=== PATIENT | female | born 1950 | race Caucasian/White ===

== ENCOUNTER → 2018-09-07 08:37 | Outpatient (CLI) | payer SELFPAY | PROVIDERS: Visit Provider Family Medicine | DX: Z00.00 Encounter for general adult medical examination without abnormal findings (principal) | CPT/HCPCS: 36415 ==

== ENCOUNTER 2019-02-10 16:15 | Emergency (ER) | payer MEDICARE, SELFPAY ==
[2019-02-10 16:15] VITALS: BP 188/85; PULSE 108; RESP 16; TEMP 36.4; O2SAT 95; BMI 34.2
[2019-02-10] MEDS: Diphth,Pertuss(Acell),Tet Vac 0.5 ML Vial IM (17:15)
--- NOTE | 2019-02-10 18:46 | ED.VISSUMM ---
- ER Visit Summary Date of Service: 02/10/19 Chief Complaint: Left thumb pain and swelling History of Present Illness: The patient is a 68 F who presents with pain and swelling over her left thumb that has been getting worse over the past 2 weeks. Patient states she has been on a course of antibiotics which did not help. Patient states she saw her primary care physician who started her on a second course of antibiotics. Patient states the pain and swelling has been getting worse. Patient states the pain is worse with palpation. Patient denies any paresthesias or weakness. Patient denies any fevers or chills. Physical Examination: Vital signs are stable. Patient is afebrile. Patient is in no acute distress. Musculoskeletal exam reveals tenderness, edema, and erythema along the nail margins of the left thumb. There is no tenderness over the pad of the left thumb. There is good capillary refill in all digits. Sensation is intact to light touch in all digits. There is no active drainage noted. There is no erythematous streaking up the thumb. The remaining physical exam is within normal limits. Emergency Department Course and Treatment: The left thumb was anesthetized with 1% lidocaine via digital block. An 11 blade scalpel was used to make incisions along the nail margins of the left thumb. There is also an incision made at the tip of the left thumb. There is some moderate purulent drainage expressed. Patient felt better after procedure. Patient was instructed to follow-up with her primary care physician in 5-7 days. Patient was given a prescription for an additional 5 days of Augmentin. Patient was instructed to return if worse in any way. Patient understood and was agreeable with the plan. All questions were answered. Disposition: Discharge home Impression: Paronychia left thumb This note was generated with [employer] dictation software. It may contain incorrect words, spelling, and punctuation that were not noted in review of the chart prior to signing ED Disposition - Plan for ED Patient: Disposition: Home or Assisted Living Diagnosis: Paronychia of left thumb Instructions: ED Paronychia Ch Prescriptions: Amoxicillin/Potassium Clav [Augmentin 875-125 Tablet] 1 ea PO BID 5 Days #10 tab Referrals: Cherie Deluca MD [Primary Care Provider] -
[2019-02-10 19:06] VITALS: BP 160/74; PULSE 88; RESP 18; O2SAT 95
== END 2019-02-10 19:06 | disposition home or self-care (01) ==
PROVIDERS: Emergency Provider Emergency Medicine; Family Provider Family Medicine; PCP Family Medicine
DX: L03.012 Cellulitis of left finger (principal); E11.9 Type 2 diabetes mellitus without complications; Z72.0 Tobacco use; Z79.2 Long term (current) use of antibiotics; Z79.4 Long term (current) use of insulin; Z79.899 Other long term (current) drug therapy
CPT/HCPCS: 10060; 90471; 90715; 99283

== ENCOUNTER → 2019-03-08 | Outpatient (CLI) | payer MEDICARE, SELFPAY ==
[2019-02-10 16:15] VITALS: BMI 34.2
[2019-03-08 12:52] LABS: Anion Gap 12 (5-15); BUN 9 mg/dL (7-18); BUN/Creat Ratio 12.4 RATIO (10-20); Calcium,Total 9.3 mg/dL (8.5-10.1); Chloride 102 mmol/L (98-107); Creatinine, Serum 0.72 mg/dL (0.55-1.02); EST Glomerular Filtration Rate 85 mL/min (>60); Est Glom Filt Rate - Afr Amer 102 mL/min (>60); Glucose 278 mg/dL (74-106); Potassium 4.4 mmol/L (3.5-5.1); Sodium Level 138 mmol/L (136-145)
[2019-03-08 13:44] LABS: Vitamin D,25 Hydroxy 28.1 ng/mL (29.95-100.01)
== END | disposition home or self-care (01) ==
LOC: MFPLAB 10:41
PROVIDERS: Family Provider Family Medicine; PCP Family Medicine; Referring Provider Family Medicine; Visit Provider Family Medicine
DX: E55.9 Vitamin D deficiency, unspecified (principal); I10 Essential (primary) hypertension
CPT/HCPCS: 36415; 80048; 82306

== ENCOUNTER → 2019-03-17 | Outpatient (CLI) | payer MEDICARE, SELFPAY ==
[2019-03-17 08:31] VITALS: BMI 34.2
--- NOTE | 2019-03-17 08:37 | RAD_ITS ---
STUDY: X-RAY - LEFT HAND, ATTENTION THUMB REASON FOR EXAM: Pain. TECHNIQUE: 3 view(s) of the finger were obtained. COMPARISON: None. FINDINGS: Normal metacarpal. Normal metacarpophalangeal joint. Normal proximal phalanx. Normal distal phalanx. There is capsular calcification at the dorsal aspect of the interphalangeal joint. RAD/Finger(s) Min 2 Views IMPRESSION: Capsular calcification of the interphalangeal joint. Otherwise, unremarkable x-ray examination of the left thumb. Electronically Signed: Graham Sharif MD at 9:44 EDT Tel , Service support ,
--- NOTE | 2019-03-17 08:37 | RAD_ITS ---
STUDY: X-RAY - RIGHT HAND, ATTENTION THUMB REASON FOR EXAM: Pain. TECHNIQUE: 3 view(s) of the finger were obtained. COMPARISON: None. FINDINGS: Normal metacarpal. Normal metacarpophalangeal joint. Normal proximal phalanx. Normal distal phalanx. There is a small osteophyte at the base of the first distal phalanx without joint space narrowing of the interphalangeal joint. RAD/Finger(s) Min 2 Views IMPRESSION: Small osteophyte at the base of the distal phalanx. Otherwise, unremarkable x-ray examination of the right thumb. Electronically Signed: Graham Sharif MD at 9:45 EDT Tel , Service support ,
== END | disposition home or self-care (01) ==
PROVIDERS: Family Provider Family Medicine; PCP Family Medicine; Referring Provider Orthopaedic Surgery; Visit Provider Orthopaedic Surgery
DX: M79.645 Pain in left finger(s) (principal); M79.644 Pain in right finger(s)
CPT/HCPCS: 73140

== ENCOUNTER → 2019-10-31 10:54 | Outpatient (CLI) | payer MEDICARE, SELFPAY ==
[2019-03-17 08:31] VITALS: BMI 34.2
[2019-10-31 13:04] LABS: Anion Gap 5 (5-15); BUN 10 mg/dL (7-18); BUN/Creat Ratio 13.7 RATIO (10-20); Calcium,Total 9.4 mg/dL (8.5-10.1); Chloride 107 mmol/L (98-107); Creatinine, Serum 0.73 mg/dL (0.55-1.02); EST Glomerular Filtration Rate 84 mL/min (>60); Est Glom Filt Rate - Afr Amer 101 mL/min (>60); Glucose 171 mg/dL (74-106); Potassium 4.2 mmol/L (3.5-5.1); Sodium Level 139 mmol/L (136-145)
== END ==
PROVIDERS: Family Provider Family Medicine; PCP Family Medicine; Referring Provider Family Medicine; Visit Provider Family Medicine
DX: E11.9 Type 2 diabetes mellitus without complications (principal)
CPT/HCPCS: 36415; 80048

== ENCOUNTER → 2020-05-01 | Outpatient (CLI) | payer MEDICARE, SELFPAY ==
[2020-01-18 10:02] VITALS: BMI 34.2
[2020-05-01 13:03] LABS: AST(SGOT) 28 U/L (15-37); Alanine Aminotransfer ALT/SGPT 30 U/L (13-56); Albumin, Serum 3.4 g/dL (3.2-5.0); Alkaline Phosphatase 39 U/L (45-117); Anion Gap 7 (5-15); BUN 16 mg/dL (7-18); BUN/Creat Ratio 20.6 RATIO (10-20); Bilirubin, Direct 0.15 mg/dL (0.00-0.30); Calcium,Total 9.7 mg/dL (8.5-10.1); Chloride 106 mmol/L (98-107); Cholesterol 171 mg/dL (200); Creatinine, Serum 0.78 mg/dL (0.55-1.02); EST Glomerular Filtration Rate 78 mL/min (>60); Est Glom Filt Rate - Afr Amer 94 mL/min (>60); Globulin 3.9 g/dL (2.2-4.2); Glucose 119 mg/dL (74-106); High Density Lipoprotein 33 mg/dL; Potassium 4.3 mmol/L (3.5-5.1); Protein, Total 7.3 g/dL (6.4-8.2); Sodium Level 141 mmol/L (136-145); Triglycerides 234 mg/dL; Very Low Density Lipoprotein 47 mg/dL (5-40)
[2020-05-01 13:10] LABS: Hemoglobin A1c 8.1 % (3.8-5.6)
== END | disposition home or self-care (01) ==
LOC: MFPLAB 10:31
PROVIDERS: PCP Family Medicine; Visit Provider Family Medicine
DX: E11.9 Type 2 diabetes mellitus without complications (principal)
CPT/HCPCS: 36415; 80048; 80061; 80076; 83036

== ENCOUNTER → 2020-10-30 16:07 | Outpatient (CLI) | payer MEDICARE, SELFPAY ==
[2020-01-18 10:02] VITALS: BMI 34.2
[2020-10-30 18:37] LABS: Anion Gap 3 (5-15); BUN 21 mg/dL (7-18); BUN/Creat Ratio 29.4 RATIO (10-20); Calcium,Total 9.5 mg/dL (8.5-10.1); Chloride 105 mmol/L (98-107); Creatinine, Serum 0.71 mg/dL (0.55-1.02); EST Glomerular Filtration Rate 86 mL/min (>60); Est Glom Filt Rate - Afr Amer 104 mL/min (>60); Glucose 115 mg/dL (74-106); Potassium 4.3 mmol/L (3.5-5.1); Sodium Level 138 mmol/L (136-145)
[2020-10-30 19:02] LABS: Microalbumin,Random Urine 6.7 mg/L (NO RANGE EST.); Microalbumin:Creatinine Ratio 11.6 mg/g CRE (<30 mg/g CRE)
== END ==
PROVIDERS: PCP Family Medicine; Visit Provider Family Medicine
DX: E11.9 Type 2 diabetes mellitus without complications (principal)
CPT/HCPCS: 36415; 80048; 82043; 82570

== ENCOUNTER → 2021-01-30 | Outpatient (CLI) | payer MEDICARE, SELFPAY ==
[2020-01-18 10:02] VITALS: BMI 34.2
== END | disposition home or self-care (01) ==
PROVIDERS: Visit Provider Family Medicine
DX: L73.2 Hidradenitis suppurativa (principal)
CPT/HCPCS: 87070; 87205

== ENCOUNTER 2021-04-03 22:39 | Inpatient (IN) | payer MEDICARE, SELFPAY ==
[2020-01-18 10:02] VITALS: BMI 34.2
[2021-04-03 22:40] VITALS: BP 148/80; PULSE 119; RESP 36; TEMP 29.4; O2SAT 91; BMI 37.2
[2021-04-03 22:45] VITALS: PULSE 118; PULSE 119; RESP 12; RESP 28; RESP 36; O2SAT 95
--- NOTE | 2021-04-03 22:47 | EKG12_ITS ---
Test Reason : SOB Blood Pressure : / mmHG Vent. Rate : 117 BPM Atrial Rate : 117 BPM P-R Int : 166 ms QRS Dur : 090 ms QT Int : 308 ms P-R-T Axes : 019 -35 073 degrees QTc Int : 429 ms Sinus tachycardia Left axis deviation Septal infarct , age undetermined Abnormal ECG Confirmed by LOTTIE GANDHI, LATOYA ([id number]), supervising film or videotape editor FLACO TIDWELL ([id number]) on 04/07/2021 12:45:24 PM Referred By: HERMANN Confirmed By:LATOYA TAFOYA MD
--- NOTE | 2021-04-03 22:50 | EDS_ITS ---
HPI History of Present Illness Chief Complaint: Shortness of Breath Informant: patient, family and EMS Onset/Context/Timing Onset: Today Context: Sudden Onset Current Severity: Severe Maximum Severity: Severe Narrative Narrative: This patient is a 70-year-old female who presents with sudden onset difficulty breathing. She has been in her baseline health. She was actually at [facility], [place]. About 1-1/2 hours before presentation here she became acutely severely short of breath. She denies any pain. She denies any recent illness. She worked today. She denies fever congestion rhinorrhea cough vomiting diarrhea abdominal pain. She denies history of underlying lung disease such as asthma or COPD. She does have a remote history of ovarian cancer. 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 Prior similar symptoms: No Recent Illness/Hospitalization: No [facility] Medical History (Updated 04/04/21 @ 02:[address] Joce Grijalva MD) Arthritis Diabetes History of back problems History of ovarian cancer historyventral hernia repair Scalp cyst Sebaceous cyst Home Medications carvedilol 6.25 mg PO BID 02/10/19 [History Last Taken Unknown] glimepiride 4 mg PO DAILY 02/10/19 [History Last Taken Unknown] insulin aspart U-100 20 unit SQ BID 02/10/19 [History Last Taken Unknown] insulin glargine 50 unit SQ DAILY 02/10/19 [History Last Taken Unknown] magnesium 400 mg PO DAILY 02/10/19 [History Last Taken Unknown] metformin 1,000 mg PO DAILY 02/10/19 [History Last Taken Unknown] quinapril 10 mg PO DAILY 02/10/19 [History Last Taken Unknown] cholecalciferol (vitamin D3) 10 mcg (400 unit) tablet 400 unit PO DAILY 01/18/20 [History Last Taken Unknown] multivitamin 1 cap PO DAILY 01/18/20 [History Last Taken Unknown] Allergy/AdvReac Type Severity Reaction Status Date / Time acetaminophen [From Percocet] AdvReac Vomiting Verified 04/03/21 22:52 cefuroxime AdvReac Other Verified 04/03/21 22:52 oxycodone [From Percocet] AdvReac Vomiting Verified 04/03/21 22:52 tetracycline AdvReac Itching Verified 04/03/21 22:52 Family History (Updated 01/18/20 @ 09:58 by Erica Loja) Mother Arthritis Cancer lung cancer Osteoporosis Brother Diabetes Surgical History History of back surgery History of bilateral salpingo-oophorectomy History of ventral hernia repair Social History (Updated 01/18/20 @ 10:[address] Elijah Eden MD) Smoking Status: Light Smoker (<10/day) alcohol intake: never substance use type: does not use ROS ROS ED Constitutional Constitutional ED: Denies chills or fever(s) ENT ENT ED: Denies ear pain Cardiovascular Cardiovascular: Denies chest pain Respiratory/Chest Respiratory/Chest: Reports dyspnea; Denies cough or sputum Gastrointestinal Gastrointestinal: Denies abdominal pain, diarrhea, nausea or vomiting Musculoskeletal Musculoskeletal: Denies arthralgias or myalgias Integumentary Denies rash Neurologic Neurologic: Denies headache(s) EXAM Physical Exam Const Vital Signs: 04/03/21 22:40 04/03/21 22:45 04/03/21 22:51 Temperature 85 F L Temperature Source Temporal Pulse Rate 119 H 119 H Respiratory Rate 36 H 36 H Respiratory Effort Short of Breath Labored Accessory Muscle Use Nasal Flaring Mechanically Ventilated Respiratory Depth Deep Respiratory Pattern Tachypnea Blood Pressure 148/80 H Blood Pressure Mean 102 Pulse Ox 91 95 Oxygen Delivery Method CPAP Bi-pap Oxygen Flow Rate (L/min) Fraction of Inspired Oxygen (FIO2) 45 04/03/21 22:53 04/03/21 23:22 04/04/21 00:02 Temperature Temperature Source Pulse Rate 117 H 119 H Respiratory Rate 38 H 30 H Respiratory Effort Respiratory Depth Respiratory Pattern Blood Pressure 150/93 H Blood Pressure Mean 112 Pulse Ox 96 97 95 Oxygen Delivery Method Bi-pap Bi-pap Nasal Cannula Oxygen Flow Rate (L/min) 5 Fraction of Inspired Oxygen (FIO2) 04/04/21 00:19 04/04/21 01:59 Temperature Temperature Source Pulse Rate 122 H 103 H Respiratory Rate 21 H 18 Respiratory Effort Respiratory Depth Respiratory Pattern Blood Pressure 138/83 H 98/50 L Blood Pressure Mean 101 66 Pulse Ox 93 96 Oxygen Delivery Method Room Air Oxygen Flow Rate (L/min) 6 5 Fraction of Inspired Oxygen (FIO2) Positive obese Constitutional Narrative: Patient in respiratory distress, pale, diaphoretic, only able to nod to questions General Appearance ED: other Nutritional Appearance: obese HEENT Reports moist mucous membranes Eyes EOMs intact bilaterally Neck supple Chest Wall inspection of chest normal Resp Resp Narrative: Respiratory distress, increased work of breathing, bilateral rales, retractions, unable to speak nodding to questions Cardio regular rhythm Rate: tachycardic and other Other Details: No murmur GI non-tender Palpation: soft Back/Spine no CVA tenderness Extremity Extremity Narrative: Symmetric pitting lower extremity edema General Extremety ED: Yes edema; Negative for tenderness General Extremity: edema Neuro Sensorium / Orientation: alert Psych mental status grossly normal MDM MDM MDM Narrative Medical decision making narrative: Patient presented in respiratory distress. She was placed on BiPAP and oxygen saturations improved to normal range on BiPAP with 45% FiO2. Initial EKG was somewhat limited due to artifact but showed sinus tachycardia with questionable ST elevation in the precordial leads as well as some ST depression in the inferior leads although this may be rate related. I did speak to Dr. Amezquita who is on-call for cardiology who also reviewed the EKG and we discussed the case. He did not feel that this met STEMI criteria but patient was noted to have hypoxia and bilateral rales so I recommended diuresis and waiting on cardiac enzymes. Repeat EKG was also obtained which shows sinus tachycardia at a rate of [address] still with some mild ST elevation in the precordial leads as well as Q waves we do not think that this meets STEMI criteria based on the appearance. I did send the second EKG to cardiology as well. Patient was given IV Lasix. She was also given aspirin. After discussion again with cardiology after return of laboratory studies we also gave subcutaneous Lovenox for possible acute coronary syndrome. Labs are notable for creatinine of 1.17, lactic acid of 5.3, troponin is 0.459. BNP is 413. Chest x-ray showed bilateral hazy airspace disease suspicious for pneumonia including atypical or viral pneumonia. However patient has no infectious symptoms and this was of sudden onset. Covid testing was negative. I believe this is more likely pulmonary edema. CTA was also obtained to rule out pulmonary embolism. This showed no evidence of PE but abnormal appearance of bilateral lungs possibly consistent with pulmonary edema. Patient will be discussed with the hospitalist service and admitted. Lab Data Labs: Laboratory Results - last 24 hr 04/03/21 04/03/21 04/03/21 23:03 23:03 23:03 WBC 10.8 RBC 4.69 Hgb 12.9 Hct 41.9 MCV 89.3 MCH 27.5 MCHC 30.8 L RDW Std Deviation 47.0 H RDW Coeff of Ludwig 14.5 Plt Count 223 MPV 13.0 H Immature Gran % (Auto) 2.600 H Neut % (Auto) 55.1 Lymph % (Auto) 31.4 Heard % (Auto) 5.1 Eos % (Auto) 4.5 Baso % (Auto) 1.3 H Absolute Neuts (auto) 6.0 Absolute Lymphs (auto) 3.40 Nucleated RBC % 0 Sodium 137 Potassium 4.7 Chloride 103 Carbon Dioxide 24.0 Anion Gap 10 BUN 22 H Creatinine 1.17 H Estim Creat Clear Calc 39.68 Est GFR (MDRD) Af Amer 59 L Est GFR (MDRD) Non-Af 48 L BUN/Creatinine Ratio 18.8 Glucose 254 H Lactic Acid 5.3 H* Calcium 9.5 Total Bilirubin 0.80 AST 26 ALT 28 Alkaline Phosphatase 45 Troponin I 0.459 H B-Natriuretic Peptide Total Protein 7.4 Albumin 3.6 Globulin 3.8 Albumin/Globulin Ratio 0.9 04/03/21 23:03 WBC RBC Hgb Hct MCV MCH MCHC RDW Std Deviation RDW Coeff of Ludwig Plt Count MPV Immature Gran % (Auto) Neut % (Auto) Lymph % (Auto) Heard % (Auto) Eos % (Auto) Baso % (Auto) Absolute Neuts (auto) Absolute Lymphs (auto) Nucleated RBC % Sodium Potassium Chloride Carbon Dioxide Anion Gap BUN Creatinine Estim Creat Clear Calc Est GFR (MDRD) Af Amer Est GFR (MDRD) Non-Af BUN/Creatinine Ratio Glucose Lactic Acid Calcium Total Bilirubin AST ALT Alkaline Phosphatase Troponin I B-Natriuretic Peptide 413.5 H Total Protein Albumin Globulin Albumin/Globulin Ratio ABG Data ABG results: ABG 04/03/21 23:46 Specimen Type ART Sample Site R Radial pH 7.34 L Bicarbonate Actual 23.6 Total CO2 25 Base Excess -2 O2 Saturation 94 L O2 % 45 ABG pCO2 44.0 ABG pO2 77 Oz Test Positive Respiration Rate 12 O2 Delivery Device BiPAP POC PEEP 9 Radiography Diagnostic Testing: Radiology Impression Chest X-Ray 04/03/21 23:12 IMPRESSION: Bilateral hazy airspace disease suspicious for pneumonia including atypical or viral pneumonia. at 2332 Reported and signed by: Cam Hdz MD Electronically Signed: Cam Hdz MD at 23:30 EDT Tel , Service support , Chest CTA 04/04/21 00:00 IMPRESSION: No evidence of pulmonary embolism. Abnormal appearance of the bilateral lungs with differential diagnosis as above. Electronically Signed: Nigel Santoro MD at 2:11 EDT Tel , Service support , Critical Care Time Critical Care Time: Yes Critical care time (excluding procedures): 30-74 minutes, Discussing w/Patient &/or Family/Underwriting Account Representative, Discussing w/Consultants and Performing Direct Patient Care at Bedside Discharge Plan Triage Chief Complaint: Shortness of Breath ED Provider: Joce Grijalva Dx/Rx/DC Orders Clinical Impression: Acute hypoxemic respiratory failure, CHF (congestive heart failure), Elevated troponin Prescriptions: No Action multivitamin capsule 1 cap PO DAILY RF: 0 cholecalciferol (vitamin D3) [Vitamin D3] 10 mcg (400 unit) tablet 400 unit PO DAILY RF: 0 carvedilol 6.25 MG tablet 6.25 mg PO BID RF: 0 insulin glargine 100 UNIT/ML solution 50 unit SQ DAILY RF: 0 quinapril 10 MG tablet 10 mg PO DAILY RF: 0 insulin aspart U-100 100 UNIT/ML solution 20 unit SQ BID RF: 0 metformin 1,000 MG tablet 1,000 mg PO DAILY RF: 0 glimepiride 4 MG tablet 4 mg PO DAILY RF: 0 magnesium 200 MG tablet 400 mg PO DAILY RF: 0 Primary Care Provider: Cherie Deluca Referrals: Cherie Deluca MD [Primary Care Provider] - Disposition Disposition: Acute Care [facility]
[2021-04-03 22:51] VITALS: O2SAT 96
[2021-04-03 22:53] VITALS: PULSE 117; RESP 38; O2SAT 96
[2021-04-03] MEDS: Ipratropium/Albuterol Sulfate 3 ML AMPUL.NEB INHALATION (22:55)
[2021-04-03] MEDS: Albuterol 2.5 MG/3 ML VIAL.NEB. INHALATION (22:56)
--- NOTE | 2021-04-03 23:12 | RAD_ITS ---
HISTORY: Respiratory distress EXAMINATION/TECHNIQUE: XR Chest 1 View: Portable upright AP chest x-ray COMPARISON: None FINDINGS: LINES/DEVICES: None. LUNGS: Hazy bilateral airspace disease with basilar prominence, no consolidation, edema or effusion. No pneumothorax. MEDIASTINUM AND CARDIOVASCULAR STRUCTURES: Cardiac silhouette not enlarged. Central airways and mediastinal contour are unremarkable. BONES AND SOFT TISSUES: No acute bony abnormalities. RAD/Chest 1 View (Portable) IMPRESSION: Bilateral hazy airspace disease suspicious for pneumonia including atypical or viral pneumonia. at 2332 Reported and signed by: Cam Hdz MD Electronically Signed: Cam Hdz MD at 23:30 EDT Tel , Service support ,
--- NOTE | 2021-04-03 23:17 | EKG12_ITS ---
Test Reason : SOB Blood Pressure : / mmHG Vent. Rate : 116 BPM Atrial Rate : 116 BPM P-R Int : 180 ms QRS Dur : 090 ms QT Int : 330 ms P-R-T Axes : -06 -28 073 degrees QTc Int : 458 ms Sinus tachycardia Anteroseptal infarct , age undetermined Abnormal ECG Confirmed by LOTTIE GANDHI, LATOYA ([id number]), avid editor FLACO TIDWELL ([id number]) on 04/07/2021 12:45:45 PM Referred By: HERMANN Confirmed By:LATOYA TAFOYA MD
[2021-04-03 23:22] VITALS: BP 150/93; PULSE 119; RESP 30; O2SAT 97
[2021-04-03 23:34] LABS: Basophil# 0.14 X10^3/uL; Basophil% 1.3 % (0-1); Eosinophil# 0.49 X10^3/uL; Eosinophils% 4.5 % (0-5); Hematocrit 41.9 % (37-47); Hemoglobin 12.9 g/dL (12.0-15.0); Lymphocyte % 31.4 % (19-41); Mean Corp Hgb Conc 30.8 g/dL (32-36); Mean Corpuscular Hgb 27.5 pg (27.0-32.0); Mean Corpuscular Volume 89.3 fL (81-99); Monocyte# 0.55 X10^3/uL; Monocyte% 5.1 % (0-10); NRBC Flagged by Analyzer 0 % (0-5); Neutrophil # 5.98 X10^3/uL (2.7-7.7); Neutrophil % 55.1 % (47-70); Platelet Count 223 K/mm3 (150-450); RBC Distribution Width CV 14.5 % (11.6-14.6); Red Blood Count 4.69 M/mm3 (4.2-5.4); White Blood Count 10.8 K/mm3 (4.4-11.0)
[2021-04-03] MEDS: Furosemide 40 MG/4 ML Vial IV (23:34)
[2021-04-03 23:36] LABS: ALB/GLOB Ratio 0.9 RATIO (0.9-2.4); AST(SGOT) 26 U/L (15-37); Alanine Aminotransfer ALT/SGPT 28 U/L (13-56); Albumin, Serum 3.6 g/dL (3.2-5.0); Alkaline Phosphatase 45 U/L (45-117); Anion Gap 10 (5-15); BUN 22 mg/dL (7-18); BUN/Creat Ratio 18.8 RATIO (10-20); Calcium,Total 9.5 mg/dL (8.5-10.1); Chloride 103 mmol/L (98-107); Creatinine, Serum 1.17 mg/dL (0.55-1.02); EST Glomerular Filtration Rate 48 mL/min (>60); Est Glom Filt Rate - Afr Amer 59 mL/min (>60); Estimated Creatinine Clearance 39.68 ml/min; Globulin 3.8 g/dL (2.2-4.2); Glucose 254 mg/dL (74-106); Potassium 4.7 mmol/L (3.5-5.1); Protein, Total 7.4 g/dL (6.4-8.2); Sodium Level 137 mmol/L (136-145)
[2021-04-03 23:45] LABS: Lactic Acid 5.3 mmol/L (0.4-1.9)
[2021-04-03 23:51] LABS: Allen Test Positive; Base Excess -2 mmol/L (-2 to +2); Bicarbonate 23.6 mmol/L (22-26); Blood Gas Specimen Type ART; FI02 45; O2 Delivery Device BiPAP; PEEP 9; PO2 77 mmHG (75-100); RR 12; SITE R Radial; SO2 94 % (95-99); Total Carbon Dioxide 25 mmol/L; pH 7.34 (7.35-7.45)
[2021-04-03 23:56] LABS: BNP,B-Type NATRIURETIC PEPTIDE 413.5 pg/mL (0-100)
[2021-04-04] VITALS (18 sets, daily range): BP systolic 98–144; BP diastolic 46–83; PULSE 90–122; RESP 18–24; TEMP 36.4–36.8; O2SAT 93–99; BMI 33.5
--- NOTE | 2021-04-04 | CT_ITS ---
STUDY: CTA CHEST REASON FOR EXAM: Female, 70 years old. Sudden onset shortness of breath, tachycardia RADIATION DOSAGE (If Supplied By Facility): CTDIvol = ( 11.83 ) mGy, DLP = ( 507.66 ) mGycm TECHNIQUE: The examination was performed with the intravenous administration of IV 100mL [id number]-300. Post-processing of the angiographic images was performed, with multiplanar reformation and 3D reconstruction. Individualized dose optimization techniques were used for this CT. COMPARISON: None. FINDINGS: No filling defect in the pulmonary arteries to suggest pulmonary embolism. Atherosclerosis of the thoracic aorta and coronary arteries noted. Trace layering pleural effusions bilaterally. No pericardial effusion. No adenopathy. No pneumothorax. Multiple groundglass densities in the bilateral lungs with interstitial septal thickening bilaterally. Findings may be due to developing pulmonary edema/ARDS, aspiration, or multifocal pneumonia. Clinical correlation recommended. Sections through the upper abdomen demonstrate a 1.6 cm right adrenal adenoma. There is suggestion of hepatic steatosis. Multilevel thoracic spondylosis. CT/CTA Chest W/WO Contrast IMPRESSION: No evidence of pulmonary embolism. Abnormal appearance of the bilateral lungs with differential diagnosis as above. Electronically Signed: Nigel Santoro MD at 2:11 EDT Tel , Service support ,
[2021-04-04] MEDS: Enoxaparin 100 MG/ML Syringe SC (00:13)
[2021-04-04] MEDS: Aspirin 81 MG TAB.CHEW 324 MG PO (00:13)
[2021-04-04 03:10] LABS: Reflex Lactate? Y
--- NOTE | 2021-04-04 03:23 | HP.PCM.HOS_ITS ---
HPI - General General Date of Admission: 04/04/21 HPI Narrative YAA HATCH, is a 70 F with a significant history of ovarian cancer; and diabetes mellitus who presents with sudden onset shortness of breath that started few hours before presentation. Patient went to [facility]. After [facility] and while at the [facility] alley she developed shortness of breath. She went home and while at home as shortness of breath increased and persisted. Paramedics were called. Her oxygen saturation was found in the 60s. She was placed on CPAP in route to the hospital. On CPAP patient was 88%. At the emergency department CPAP was changed to BiPAP. Her oxygen saturation improved. While in the emergency department patient was able to be weaned to normal cannula oxygen at about 4.5 nasal cannula. Patient reports chronic shortness of breath that she attributes to wearing a mask. She has a cough that she attributes to smoking and is unchanged. She reports fatigue with exertion. She reports chronic two-pillow orthopnea. She denies proximal nocturnal dyspnea. Occasionally she has intermittent swelling in her lower extremities that resolves by itself. At the emergency department EKG was abnormal. Emergency for doctor discussed with cardiology who recommended diuresis with anticoagulation. [facility] Medical History Arthritis Diabetes History of back problems History of ovarian cancer historyventral hernia repair Scalp cyst Sebaceous cyst Home Medications carvedilol 6.25 mg PO BID 02/10/19 [History Last Taken Unknown] glimepiride 4 mg PO DAILY 02/10/19 [History Last Taken Unknown] insulin aspart U-100 20 unit SQ BID 02/10/19 [History Last Taken Unknown] insulin glargine 50 unit SQ DAILY 02/10/19 [History Last Taken Unknown] magnesium 400 mg PO DAILY 02/10/19 [History Last Taken Unknown] metformin 1,000 mg PO DAILY 02/10/19 [History Last Taken Unknown] quinapril 10 mg PO DAILY 02/10/19 [History Last Taken Unknown] cholecalciferol (vitamin D3) 10 mcg (400 unit) tablet 400 unit PO DAILY 01/18/20 [History Last Taken Unknown] multivitamin 1 cap PO DAILY 01/18/20 [History Last Taken Unknown] Allergy/AdvReac Type Severity Reaction Status Date / Time acetaminophen [From Percocet] AdvReac Vomiting Verified 04/03/21 22:52 cefuroxime AdvReac Other Verified 04/03/21 22:52 oxycodone [From Percocet] AdvReac Vomiting Verified 04/03/21 22:52 tetracycline AdvReac Itching Verified 04/03/21 22:52 Family History Mother Arthritis Cancer lung cancer Osteoporosis Brother Diabetes Surgical History History of back surgery History of bilateral salpingo-oophorectomy History of ventral hernia repair Social History Smoking Status: Light Smoker (<10/day) alcohol intake: never substance use type: does not use ROS ROS Narrative 12 point review of system is negative except as stated in the HPI. Vital Signs Vital Signs Vital Signs: 04/03/21 22:40 04/03/21 22:45 04/03/21 22:51 Temperature 85 F L Temperature Source Temporal Pulse Rate 119 H 119 H Respiratory Rate 36 H 36 H Respiratory Effort Short of Breath Labored Accessory Muscle Use Nasal Flaring Mechanically Ventilated Respiratory Depth Deep Respiratory Pattern Tachypnea Blood Pressure 148/80 H Blood Pressure Mean 102 Pulse Ox 91 95 Oxygen Delivery Method CPAP Bi-pap Oxygen Flow Rate (L/min) Fraction of Inspired Oxygen (FIO2) 45 04/03/21 22:53 04/03/21 23:22 04/04/21 00:02 Temperature Temperature Source Pulse Rate 117 H 119 H Respiratory Rate 38 H 30 H Respiratory Effort Respiratory Depth Respiratory Pattern Blood Pressure 150/93 H Blood Pressure Mean 112 Pulse Ox 96 97 95 Oxygen Delivery Method Bi-pap Bi-pap Nasal Cannula Oxygen Flow Rate (L/min) 5 Fraction of Inspired Oxygen (FIO2) 04/04/21 00:19 04/04/21 01:59 04/04/21 02:40 Temperature Temperature Source Pulse Rate 122 H 103 H 101 H Respiratory Rate 21 H 18 24 H Respiratory Effort Respiratory Depth Respiratory Pattern Blood Pressure 138/83 H 98/50 L 98/55 L Blood Pressure Mean 101 66 69 Pulse Ox 93 96 95 Oxygen Delivery Method Room Air Nasal Cannula Oxygen Flow Rate (L/min) 6 5 5 Fraction of Inspired Oxygen (FIO2) Physical Exam Narrative Alert and oriented x3 Nontraumatic; normocephalic Lungs with rales Heart sounds S1-S2. No murmur, gallop or rubs. Abdomen bowel sounds present soft, nontender nondistended Extremity without edema cyanosis or clubbing. Lab / Micro Data Result Diagrams: 04/03/21 23:03 04/03/21 23:03 Labs: Laboratory Results - last 24 hr 04/03/21 04/03/21 04/03/21 23:03 23:03 23:03 WBC 10.8 RBC 4.69 Hgb 12.9 Hct 41.9 MCV 89.3 MCH 27.5 MCHC 30.8 L RDW Std Deviation 47.0 H RDW Coeff of Ludwig 14.5 Plt Count 223 MPV 13.0 H Immature Gran % (Auto) 2.600 H Neut % (Auto) 55.1 Lymph % (Auto) 31.4 Henry % (Auto) 5.1 Eos % (Auto) 4.5 Baso % (Auto) 1.3 H Absolute Neuts (auto) 6.0 Absolute Lymphs (auto) 3.40 Nucleated RBC % 0 Sodium 137 Potassium 4.7 Chloride 103 Carbon Dioxide 24.0 Anion Gap 10 BUN 22 H Creatinine 1.17 H Estim Creat Clear Calc 39.68 Est GFR (MDRD) Af Amer 59 L Est GFR (MDRD) Non-Af 48 L BUN/Creatinine Ratio 18.8 Glucose 254 H Lactic Acid 5.3 H* Calcium 9.5 Total Bilirubin 0.80 AST 26 ALT 28 Alkaline Phosphatase 45 Troponin I 0.459 H B-Natriuretic Peptide Total Protein 7.4 Albumin 3.6 Globulin 3.8 Albumin/Globulin Ratio 0.9 04/03/21 23:03 WBC RBC Hgb Hct MCV MCH MCHC RDW Std Deviation RDW Coeff of Ludwig Plt Count MPV Immature Gran % (Auto) Neut % (Auto) Lymph % (Auto) Henry % (Auto) Eos % (Auto) Baso % (Auto) Absolute Neuts (auto) Absolute Lymphs (auto) Nucleated RBC % Sodium Potassium Chloride Carbon Dioxide Anion Gap BUN Creatinine Estim Creat Clear Calc Est GFR (MDRD) Af Amer Est GFR (MDRD) Non-Af BUN/Creatinine Ratio Glucose Lactic Acid Calcium Total Bilirubin AST ALT Alkaline Phosphatase Troponin I B-Natriuretic Peptide 413.5 H Total Protein Albumin Globulin Albumin/Globulin Ratio Micro: Microbiology 04/03/21 22:50 SARS-CoV-2 Antigen (Rapid) - Final Interface Orders ABG Data ABG results: ABG 04/03/21 23:46 Specimen Type ART Sample Site R Radial pH 7.34 L Bicarbonate Actual 23.6 Total CO2 25 Base Excess -2 O2 Saturation 94 L O2 % 45 ABG pCO2 44.0 ABG pO2 77 Oz Test Positive Respiration Rate 12 O2 Delivery Device BiPAP POC PEEP 9 Radiology Impression Chest X-Ray 04/03/21 23:12 IMPRESSION: Bilateral hazy airspace disease suspicious for pneumonia including atypical or viral pneumonia. at 2332 Reported and signed by: Cam Hdz MD Electronically Signed: Cam Hdz MD at 23:30 EDT Tel , Service support , Chest CTA 04/04/21 00:00 IMPRESSION: No evidence of pulmonary embolism. Abnormal appearance of the bilateral lungs with differential diagnosis as above. 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 CXR independently reviewed shows bilateral haziness. COVID-19 screen was negative. Of note patient has no fever and his symptoms came on suddenly making it very unlikely Covid. CTA showed no evidence of pulmonary embolism. Abnormal appearance of groundglass densities in bilateral lungs with interstitial septal thickening. EKG independently reviewed showed Q waves and J-point elevation in V2 to V4 and ST depressions in inferior leads. Emergency department doctor discussed the case with cardiology. Emergency department labs reviewed showed elevated BNP of 413.5 (normal 0-100) Received Lasix 40 mg IV push at emergency department. Potassium 4.7. Lasix 40 mg IV push twice daily ordered. Trend BMP. Echo ordered to evaluate LVEF and wall motion . Monitor electrolytes and renal function Trend blood pressure Fluid restriction of 1500 mls daily With elevated troponin we will keep n.p.o. no trend troponin. Received therapeutic dose of Lovenox at emergency department. Patient was very concerned about failure anticoagulation dose saying that when she check her blood sugar it takes a long time for bleeding to stop. Discussed with patient that troponin will be trended and if troponin remains elevated anticoagulation may be continued. For now we will hold off further anticoagulation. Compressive respiratory pathogen panel ordered. Cardiology consult. Adrenal adenoma?incidentaloma CTA chest showed a 1.6 cm of right adrenal adenoma. We will check cortisol level and catecholamines. Diabetes mellitus Patient with hyperglycemia on presentation Insulin glargine continued on. While n.p.o. hold Amaryl. Accu-Chek with correction scale insulin ordered. Accu-Chek QA [facility] with correction scale insulin ordered. Multi Select Codes Visit Charges Visit Charges: 68952 Init Hosp L3
[2021-04-04 04:20] LABS: Lactic Acid 3.1 mmol/L (0.4-1.9)
[2021-04-04 04:36] LABS: Bedside Glucose 197 mg/dL (70-110)
[2021-04-04] MEDS: Insulin Lispro 100 UNIT/ML INSULN.PEN SC (04:51)
[2021-04-04 05:17] LABS: Absolute Lymphocyte Count 2.18 X10^3/uL (0.83-4.51); Absolute Neutrophil Count 9.1 X10^3/uL (2.0-7.7); Basophil# 0.08 X10^3/uL; Basophil% 0.7 % (0-1); Eosinophil# 0.05 X10^3/uL; Eosinophils% 0.4 % (0-5); Hematocrit 38.3 % (37-47); Hemoglobin 12.2 g/dL (12.0-15.0); Lymphocyte # 2.18 X10^3/ul (0.83-4.51); Lymphocyte % 18.1 % (19-41); Mean Corp Hgb Conc 31.9 g/dL (32-36); Mean Corpuscular Hgb 27.8 pg (27.0-32.0); Mean Corpuscular Volume 87.2 fL (81-99); Mean Platelet Vol. 12.3 fl (6.2-12.0); Monocyte# 0.54 X10^3/uL; Monocyte% 4.5 % (0-10); NRBC Flagged by Analyzer 0 % (0-5); Neutrophil # 9.09 X10^3/uL (2.7-7.7); Neutrophil % 75.6 % (47-70); Platelet Count 201 K/mm3 (150-450); RBC Distribution Width CV 14.4 % (11.6-14.6); RBC Distribution Width SD 45.4 fl (35.1-43.9); Red Blood Count 4.39 M/mm3 (4.2-5.4)
[2021-04-04 05:46] LABS: Anion Gap 10 (5-15); BUN 22 mg/dL (7-18); Calcium,Total 9.2 mg/dL (8.5-10.1); Chloride 103 mmol/L (98-107); Cholesterol 172 mg/dL (200); Creatinine, Serum 0.92 mg/dL (0.55-1.02); EST Glomerular Filtration Rate 64 mL/min (>60); Est Glom Filt Rate - Afr Amer 78 mL/min (>60); Estimated Creatinine Clearance 50.47 ml/min; Glucose 176 mg/dL (74-106); High Density Lipoprotein 37 mg/dL; Sodium Level 138 mmol/L (136-145); Triglycerides 197 mg/dL; Very Low Density Lipoprotein 39 mg/dL (5-40)
--- NOTE | 2021-04-04 05:55 | ECHOCS_ITS ---
Reason For Study: SOB Procedure This was a 2D Doppler, Color Flow transthoracic echocardiogram. The study was technically difficult. Exam performed portable in patient room. Left Ventricle Normal LV size. The estimated ejection fraction is 15 %. Severe segmental systolic dysfunction (see wall motion). Stage 2 diastolic dysfunction. [place] : Akinetic. Mid-Anterior : Akinetic. Mid-Lateral : Hypokinetic. Anterior [place] : Akinetic. Posterior-Basal: Normal. Lateral-Basal: Normal. Anterio- Basal: Normal. Infero-Basal: Normal. Basal inferoseptal: Normal. Basal anteroseptal: Normal. Mid- Posterior: Normal. There are regional wall motion abnormalities as specified. Right Ventricle Normal RV size. Normal systolic function. Atria Normal left atrium. Normal right atrium. Mitral Valve Normal mitral valve. Tricuspid Valve Normal tricuspid valve. Mild tricuspid valve insufficiency. Pulmonary artery systolic pressure is 24 mmHg. Aortic Valve Trisinus/trileaflet aortic valve. Pulmonic Valve Normal pulmonic valve. Trivial pulmonic valve insufficiency. Great Vessels Normal aortic root. The pulmonary is not well visualized. Normal inferior vena cava. and partially collapses. Pericardium/Pleural No pericardial effusion. Medication Diluted definity 4ml given slow IV push to enhance endocardial definition. MMode/2D Measurements & Calculations LVIDd: 5.0 cm IVSd: 1.2 cm Ao root diam: 3.3 cm LVIDs: 3.5 cm LVPWd: 1.2 cm RVDd: 2.8 cm FS: 29.2 % LAV(MOD-bp): 55.0 ml LA A4 area: 17.4 cm2 LA dimension(2D): 3.5 cm LAV(MOD-bp) Indexed: 27.7 ml/m2 LAV(MOD-sp2): 56.4 ml LAV(MOD-sp4): 50.1 ml RA A4 area: 11.3 cm2 Doppler Measurements & Calculations MV E max domingo: 99.3 cm/sec Lat Peak E' Domingo: 5.2 cm/sec Med Peak E' Domingo: 4.0 cm/sec MV A max domingo: 79.7 cm/sec E/E' lat: 19.2 E/E' med: 24.8 MV E/A: 1.2 Ao V2 max: 107.8 cm/sec LV V1 max: 81.1 cm/sec PA V2 max: 64.0 cm/sec Ao max P.6 mmHg LV V1 max P.6 mmHg TR max domingo: 225.0 cm/sec TR max P.2 mmHg ECHO/Echo Complete W/ Contrast Interpretation Summary Normal LV size. The estimated ejection fraction is 15 %. Severe segmental systolic dysfunction (see wall motion). Stage 2 diastolic dysfunction. Pulmonary artery systolic pressure is 24 mmHg. Contrast injection was performed. Ordering Physician: Gagan Brady Referring Physician: Cherie Deluca M.D. Performed By: Katie Ordoñez RDCS
[2021-04-04] MEDS: TICAGRELOR 90 MG TABLET 180 MG PO (06:04)
--- NOTE | 2021-04-04 07:51 | CON.PCM.CA_ITS ---
Assessment & Plan Assessment/Plan (1) NSTEMI, initial episode of care: PLAN: Patient presents with shortness of breath requiring oxygenation and is noted to have an abnormal cardiac troponin enzyme. The above is suggestive of a non-ST elevation myocardial infarction. My recommendation at this time will be to start aspirin, obtain an echocardiogram to assess ventricular function and to perform a left heart catheterization. Depending on the findings further recommendations will be made. Addendum: Cardiac catheterization demonstrated the following: Normal left main coronary artery. Left anterior descending artery with 90% long left anterior descending artery lesion all the way towards the apex with severe disease involving the diagonal branches. Left circumflex artery with moderate 50 to 60% mid segment disease and moderate 50 to 60% mid to distal. Dominant right coronary artery with moderate 40 to 50% diffuse stenosis. Severe left ventricular systolic dysfunction with estimated ejection fraction of 15 to 20% with an akinetic anterior wall and apex Based on the above angiographic findings I would recommend the patient be transferred to a tertiary care facility for consideration for coronary bypass surgery (2) CHF (congestive heart failure): QUALIFIERS: Heart failure chronicity: acute Heart failure type: unspecified Qualified Code(s): I50.9 - Heart failure, unspecified PLAN: She does not have a history of congestive heart failure. She presents with shortness of breath and elevated natruretic peptide as well as infiltrates noted on the chest x-ray. She has responded well to diuresis. * Will recommend an echocardiogram to assess her ventricular function which demonstrated an ejection fraction of 15% with severe segmental wall motion abnormalities present * The etiology of her heart failure is likely secondary to coronary artery disease. She was noted to be hypertensive when she presented and this could be contributing to the above as well. Adjustments will be made after the cardiac catheterization. HPI Consult Data Date of Consult: 04/04/21 HPI Narrative HPI Narrative: YAA HATCH, is a 70 F who presents to the emergency room with acute shortness of breath. The patient apparently went bowling and then presented to the emergency sudden shortness of breath. 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 She denied any chest pain. She does have a history of hypertension as well as diabetes mellitus. She was evaluated in the emergency room and then put on BiPAP diuresed with intravenous Lasix and admitted to the telemetry unit. Cardiology was called for further evaluation and management. This morning she denies any chest pain or paroxysmal nocturnal dyspnea or pedal edema she has had no neck arm or jaw discomfort suggest angina. She has had no dizziness or diaphoresis no near syncope or syncope. PFSH Medical History Anemia Arthritis Cancer Diabetes History of back problems History of ovarian cancer historyventral hernia repair Irregular heart beat Scalp cyst Sebaceous cyst Smoker Home Medications carvedilol 6.25 mg PO BID 02/10/19 [History Last Taken Unknown] glimepiride 4 mg PO DAILY 02/10/19 [History Last Taken Unknown] insulin glargine 50 unit SQ DAILY 02/10/19 [History Last Taken Unknown] magnesium 400 mg PO DAILY 02/10/19 [History Last Taken Unknown] metformin 1,000 mg PO BID 02/10/19 [History Last Taken Unknown] quinapril 10 mg PO DAILY 02/10/19 [History Last Taken Unknown] cholecalciferol (vitamin D3) 10 mcg (400 unit) tablet 1,000 unit PO DAILY 01/18/20 [History Last Taken Unknown] insulin aspart U-100 [Novolog Flexpen U-100 Insulin] 20 unit SUBCUT BID 04/04/21 [History Last Taken Unknown] Allergy/AdvReac Type Severity Reaction Status Date / Time acetaminophen [From Percocet] AdvReac Vomiting Verified 04/03/21 22:52 cefuroxime AdvReac Other Verified 04/03/21 22:52 oxycodone [From Percocet] AdvReac Vomiting Verified 04/03/21 22:52 tetracycline AdvReac Itching Verified 04/03/21 22:52 Family History Mother Arthritis Cancer lung cancer Osteoporosis Brother Diabetes Surgical History History of appendectomy History of back surgery History of bilateral salpingo-oophorectomy History of ventral hernia repair Social History Smoking Status: Light Smoker (<10/day) alcohol intake: never substance use type: does not use ROS Constitutional Constitutional: Reports systems reviewed and no addt'l complaints, except as documented and as per HPI Eyes Eyes: Reports as per HPI ENT HEENT: Reports as per HPI Cardiovascular Cardiovascular: Denies chest pain Respiratory/Chest Respiratory/Chest: Reports dyspnea and dyspnea on exertion Gastrointestinal Gastrointestinal: Reports as per HPI Genitourinary Genitourinary: Reports as per HPI Musculoskeletal Musculoskeletal: Reports as per HPI Integumentary Integumentary: Reports as per HPI Neurologic Neurologic: Denies dizziness or focal weakness Psychiatric Psychiatric: Reports as per HPI Endocrine Endocrinology: Reports as per HPI Hematologic/Lymphatic Hematologic/Lymphatic: Reports as per HPI Allergic/Immunologic Allergic/Immunologic: Reports as per HPI Physical Exam Const oriented x3 and healthy appearing Orientation / Consciousness: awake HEENT normocephalic Eyes PERRL and conjunctivae normal Neck supple, no JVD and no carotid bruits Chest inspection of chest normal Resp normal respiratory effort and clear to auscultation bilaterally Cardio Palpation: normal PMI Rate: regular rate Rhythm: regular rhythm Heart Sounds: S1 normal and S2 normal Peripheral Pulses: pulses 2+ throughout GI normal to inspection, nondistended, normoactive bowel sounds Extremity normal to inspection and no clubbing, cyanosis or edema Psych mental status grossly normal
--- NOTE | 2021-04-04 08:28 | CASEMGMT ---
SALINAS WELLS NOTE; Insurance review for hospitals In-network with?[employer] Insurance if transfer is recommended is as follows: [facility], [place], [facility], [facility], [facility], [facility]), and . Neha SNIDERN SALINAS CM
[2021-04-04] MEDS: Aspirin E.C. 81 MG Tablet PO (09:05)
[2021-04-04] MEDS: Lisinopril 10 MG Tablet PO (09:05)
[2021-04-04] MEDS: 0.9% Saline Lock 10 ML Syringe IV ×2 (09:05→12:13)
[2021-04-04] MEDS: 0.9% Normal Saline 1,000 ML 15 ML IV (09:05)
[2021-04-04] MEDS: Carvedilol 6.25 MG Tablet PO (09:05)
--- NOTE | 2021-04-04 10:22 | NURSING ---
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
--- NOTE | 2021-04-04 11:51 | CL.D_ITS ---
Patient Name: YAA HATCH Study Date: 04/04/2021 Performing: Geovanni Escobar MD Ht: 64.96 inches 165 cm : 1950 Wt: 202.83 lbs 92 kg Age: 70 Gender: female BSA: 1.99 PROCEDURE(S) PERFORMED TC37-LYS/COR/LV CLINICAL PROFILE AND INDICATIONS Heart Failure: NYHA Class: 3, Newly Diagnosed: Yes, Heart Failure Type: Systolic CONCLUSIONS Cardiomyopathy: Dilated ischemic Severe coronary artery disease involving the left anterior descending artery with a calcified long st enosis, moderate circumflex artery disease and severe left ventricular systolic dysfunction. RECOMMENDATIONS Surgery consult for coronary revascularization DESCRIPTION OF PROCEDURE The patient arrived to the procedure lab. The risks and benefits of the procedure as well as a full d escription of our services here and current unavailability of surgical backup were fully explained to the patient and/or their significant other prior to the catheterization. The Timeout was completed, verifying the correct patient and procedure. The patient's procedural site was prepped and draped in the usual fashion. Local anesthetic was given subcutaneously to right radial region with Lidocaine 2% . Using a modified Seldinger technique, arterial access was obtained via the right radial artery, a 6 Fr sheath was inserted. Left Coronary Artery selective angiography was performed in multiple views u sing a 5 Fr. 4.0 [place] catheter. Right Coronary Artery selective angiography was then performed in mu ltiple views using a 5 Fr. 4.0 [place] catheter. Left Ventriculography was performed in PANDYA projection using a 5 Fr. Pigtail catheter. LV to AO pullback pressures were then recorded.The arterial sheath was pulled and a TR Band was applied for hemostasis CORONARY ANGIOGRAPHY DOMINANCE: Right Dominant LEFT HEART ASSESSMENT Left Ventricular Ejection Fraction: by LV Gram 15 % Anterior Hypokinesis - Severe. Apical Akinesis Depressed Left Ventricular systolic function LEFT MAIN: Mild calcification, Non-obstructive LEFT ANTERIOR DESCENDING ARTERY: Severe left anterior descending artery stenosis with 90% diffuse carissa nosis extending all the way to the apex PROX LAD: Moderate calcification CIRCUMFLEX ARTERY: MID CIRC: Moderate luminal irregularities up to 50% OM 1: Proximal - Moderate luminal irregularities up to 50% RIGHT CORONARY ARTERY: Mild luminal irregularities less than 30% COMPLICATIONS No Complications PROCEDURE MEDICATIONS Fentanyl 50 mcg IV Versed 1 mg IV Oxygen: 2 L/min via nasal cannula Heparin diluted in 23cc Heparinized saline. Patient given 10cc IA of this solution. 04/04/2021 11:21:4 4 Verapamil 2.5mg, Ntg 100mcgs, 2000 units of Heparin diluted in 23cc Heparinized saline. Patient give n 10cc IA of this solution. 04/04/2021 11:21:44 IV Bolus: .9 NaCl 200 ml total 04/04/2021 11:17:40 SUMMARY OF HEMODYNAMIC DATA Time AIR REST ECG 11:02:18 AO 96/56 (72) SA 11:24:42 LV 94/9, 22 11:31:29 LV 98/11, 23 11:31:35 LV 104/14, 26 11:32:52 LVp 106/14, 27 11:32:58 AOp 104/55 (75) 11:33:03 RM AIR REST 11:47:43 Signed By Geovanni Escobar MD On 04/04/2021 11:50:10 AM Geovanni Escobar MD
[2021-04-04] MEDS: Magnesium Chloride 64 MG Delay Rel.Tablet 128 MG PO (12:13)
[2021-04-04] MEDS: Furosemide 40 MG/4 ML Vial IV (12:13)
[2021-04-04] MEDS: Glimepiride 4 MG Tablet PO (12:13)
[2021-04-04 12:26] LABS: Bedside Glucose 137 mg/dL (70-110)
--- NOTE | 2021-04-04 13:10 | NURSING ---
Called report to Hetal NIÑO at [facility]
--- NOTE | 2021-04-04 16:18 | DS.PCM_ITS ---
Providers Date of Admission: 04/04/21 Primary Care Physician: Dr. Cherie Deluca MD Consultations 04/04/21 04:27 Consult: Cardiology Routine Consulting Provider: Michael Amezquita Reason for Consult: Elevated troponin EMERGENT Consult: No MD Notified: Yes Date Notified:: 04/04/21 Time Notified: 04:27 Method of Notification: Verbal Method of Consult:: In-Person Reason For Visit: ACUTE HEART FAILURE Diagnosis Discharge Diagnosis (1) NSTEMI, initial episode of care: Status: Acute Code(s): I21.4 - Non-ST elevation (NSTEMI) myocardial infarction (2) CHF (congestive heart failure): Status: Acute Code(s): I50.9 - Heart failure, unspecified Qualifiers: Heart failure type: unspecified Heart failure chronicity: acute Qualified Code(s): I50.9 - Heart failure, unspecified Medications at Discharge Home Medications carvedilol 6.25 mg PO BID 02/10/19 glimepiride 4 mg PO DAILY 02/10/19 insulin glargine 50 unit SQ DAILY 02/10/19 magnesium 400 mg PO DAILY 02/10/19 metformin 1,000 mg PO BID 02/10/19 quinapril 10 mg PO DAILY 02/10/19 cholecalciferol (vitamin D3) 10 mcg (400 unit) tablet 1,000 unit PO DAILY 01/18/20 insulin aspart U-100 [Novolog Flexpen U-100 Insulin] 20 unit SUBCUT BID 04/04/21 Hospital Course Operations None Procedures 2-D Echocardiogram and Cardiac catheterization Summary of Care Provided Minutes Spent on Discharge: 50 Hospital Course: Patient is a 70 y/o female with a PMH of ovarian cancer and diabetes mellitus who was admitted to the ED on 04/04/2021 with a complaint of shortness of breath which started a few hours prior to admission. Patient had gone bowling and says after she had the bone insertion, she developed shortness of breath. She went home but shortness of breath worsened and so she called the paramedics. She was found to be saturating in the 60s when the EMS arrived. She was subsequently switched to BiPAP with improvement in oxygen saturation. She was subsequently weaned off of BiPAP and put on 4.5 L of oxygen. She a dmitted to a cough which she said was due to smoking and was chronic and also reported exertional fatigue as well as orthopnea though she denied paroxysmal nocturnal dyspnea. She also had intermittent lower extremity swelling. EKG on admission was abnormal, with ST depression in inferior leads, and BNP was elevated at 413. Initial troponinin was also elevated. She was admitted to be managed for nonstemi and acute heart failure as well as acute hypoxic respiratory failure due to nonstemi and exacerbation of heart failure. She was started on therapeutic anticoagulation and started on IV lasix. Cardiology was consulted. She had 2D echo which showed EF of 15%, with normal LV size and stage 2 diastolic dysfunction, with pulmonary artery systolic pressure of 24mmhg. She had a cardiac cath which showed LV ejection fraction of 15% and severe anterior hypokinesis and apical akinesis with depressed LV systolic function, as well as severe LAD stenosis with 90% diffuse stenosis extending all the way to the apex, and moderate luminal irregularities up to 50% in the mid circumflex and OM1 artery, and RCA had less than 30% stenosis. Patient was deemed as needing CABG due to severe triple vessel disease, so she was transferred to [facility], and was accepted under the care of Dr Johnathan Stubbs (cardiothoracic surgeon). Patient was seen and examined prior to discharge. She complained of not being able to sleep during the night. Shortness of breath had improved. Review of systems was otherwise negative. Labs and vitals reviewed. Home medication reviewed and reconciled. Physical Exam Const alert, oriented x3 and no apparent distress General Appearance: cooperative and comfortable HEENT normocephalic and head/scalp atraumatic Eyes PERRL, EOMs intact bilaterally and conjunctivae normal Neck no lymphadenopathy and supple Resp Resp Narrative: breath sounds mildly diminished bibasally, mild wheezes and crackles bilaterally. on 3L of xoygen by nasal canula Cardio regular rate, regular rhythm, S1 normal heart sound, S2 normal heart sound and no murmurs GI normal to inspection, nondistended, normoactive bowel sounds, soft to palpation, non-tender and non-distended Extremity normal to inspection, full ROM and no clubbing, cyanosis or edema Skin no rashes or lesions noted Neuro oriented x3 Sensorium / Orientation: awake and oriented to person Psych affect normal ABG / Lab / Microbiology Data Result Diagrams: 04/04/21 05:10 04/04/21 05:10 Laboratory: Laboratory Results - last 24 hr 04/03/21 04/03/21 04/03/21 23:03 23:03 23:03 WBC 10.8 RBC 4.69 Hgb 12.9 Hct 41.9 MCV 89.3 MCH 27.5 MCHC 30.8 L RDW Std Deviation 47.0 H RDW Coeff of Ludwig 14.5 Plt Count 223 MPV 13.0 H Immature Gran % (Auto) 2.600 H Neut % (Auto) 55.1 Lymph % (Auto) 31.4 [place] % (Auto) 5.1 Eos % (Auto) 4.5 Baso % (Auto) 1.3 H Absolute Neuts (auto) 6.0 Absolute Lymphs (auto) 3.40 Nucleated RBC % 0 Sodium 137 Potassium 4.7 Chloride 103 Carbon Dioxide 24.0 Anion Gap 10 BUN 22 H Creatinine 1.17 H Estim Creat Clear Calc 39.68 Est GFR (MDRD) Af Amer 59 L Est GFR (MDRD) Non-Af 48 L BUN/Creatinine Ratio 18.8 Glucose 254 H Lactic Acid 5.3 H* Calcium 9.5 Total Bilirubin 0.80 AST 26 ALT 28 Alkaline Phosphatase 45 Troponin I 0.459 H B-Natriuretic Peptide Total Protein 7.4 Albumin 3.6 Globulin 3.8 Albumin/Globulin Ratio 0.9 Triglycerides Cholesterol LDL Cholesterol VLDL Cholesterol HDL Cholesterol Cortisol POC Glucose 04/03/21 04/04/21 04/04/21 23:03 03:45 04:32 WBC RBC Hgb Hct MCV MCH MCHC RDW Std Deviation RDW Coeff of Ludwig Plt Count MPV Immature Gran % (Auto) Neut % (Auto) Lymph % (Auto) [place] % (Auto) Eos % (Auto) Baso % (Auto) Absolute Neuts (auto) Absolute Lymphs (auto) Nucleated RBC % Sodium Potassium Chloride Carbon Dioxide Anion Gap BUN Creatinine Estim Creat Clear Calc Est GFR (MDRD) Af Amer Est GFR (MDRD) Non-Af BUN/Creatinine Ratio Glucose Lactic Acid 3.1 H* Calcium Total Bilirubin AST ALT Alkaline Phosphatase Troponin I B-Natriuretic Peptide 413.5 H Total Protein Albumin Globulin Albumin/Globulin Ratio Triglycerides Cholesterol LDL Cholesterol VLDL Cholesterol HDL Cholesterol Cortisol POC Glucose 197 H 04/04/21 04/04/21 04/04/21 05:10 05:10 05:10 WBC 12.0 H RBC 4.39 Hgb 12.2 Hct 38.3 MCV 87.2 MCH 27.8 MCHC 31.9 L RDW Std Deviation 45.4 H RDW Coeff of Ludwig 14.4 Plt Count 201 MPV 12.3 H Immature Gran % (Auto) 0.700 Neut % (Auto) 75.6 H Lymph % (Auto) 18.1 L [place] % (Auto) 4.5 Eos % (Auto) 0.4 Baso % (Auto) 0.7 Absolute Neuts (auto) 9.1 H Absolute Lymphs (auto) 2.18 Nucleated RBC % 0 Sodium 138 Potassium 4.0 Chloride 103 Carbon Dioxide 25.0 Anion Gap 10 BUN 22 H Creatinine 0.92 Estim Creat Clear Calc 50.47 Est GFR (MDRD) Af Amer 78 Est GFR (MDRD) Non-Af 64 BUN/Creatinine Ratio 24.0 H Glucose 176 H Lactic Acid Calcium 9.2 Total Bilirubin AST ALT Alkaline Phosphatase Troponin I 2.690 H* B-Natriuretic Peptide Total Protein Albumin Globulin Albumin/Globulin Ratio Triglycerides 197 Cholesterol 172 LDL Cholesterol 96 VLDL Cholesterol 39 HDL Cholesterol 37 L Cortisol 20.50 POC Glucose 04/04/21 04/04/21 04/04/21 05:10 08:00 10:25 WBC RBC Hgb Hct MCV MCH MCHC RDW Std Deviation RDW Coeff of Ludwig Plt Count MPV Immature Gran % (Auto) Neut % (Auto) Lymph % (Auto) [place] % (Auto) Eos % (Auto) Baso % (Auto) Absolute Neuts (auto) Absolute Lymphs (auto) Nucleated RBC % Sodium Potassium Chloride Carbon Dioxide Anion Gap BUN Creatinine Estim Creat Clear Calc Est GFR (MDRD) Af Amer Est GFR (MDRD) Non-Af BUN/Creatinine Ratio Glucose Lactic Acid Calcium Total Bilirubin AST ALT Alkaline Phosphatase Troponin I Cancelled 4.750 H* 6.210 H* B-Natriuretic Peptide Total Protein Albumin Globulin Albumin/Globulin Ratio Triglycerides Cholesterol LDL Cholesterol VLDL Cholesterol HDL Cholesterol Cortisol POC Glucose 04/04/21 12:12 WBC RBC Hgb Hct MCV MCH MCHC RDW Std Deviation RDW Coeff of Ludwig Plt Count MPV Immature Gran % (Auto) Neut % (Auto) Lymph % (Auto) [place] % (Auto) Eos % (Auto) Baso % (Auto) Absolute Neuts (auto) Absolute Lymphs (auto) Nucleated RBC % Sodium Potassium Chloride Carbon Dioxide Anion Gap BUN Creatinine Estim Creat Clear Calc Est GFR (MDRD) Af Amer Est GFR (MDRD) Non-Af BUN/Creatinine Ratio Glucose Lactic Acid Calcium Total Bilirubin AST ALT Alkaline Phosphatase Troponin I B-Natriuretic Peptide Total Protein Albumin Globulin Albumin/Globulin Ratio Triglycerides Cholesterol LDL Cholesterol VLDL Cholesterol HDL Cholesterol Cortisol POC Glucose 137 H Microbiology: Microbiology 04/04/21 03:42 Respiratory Panel (PCR) - Final Mucosa - Nasopharyngeal 04/03/21 22:50 SARS-CoV-2 Antigen (Rapid) - Final Interface Orders Microbiology 04/04/21 03:42 Mucosa - Nasopharyngeal Respiratory Panel (PCR) - Final 04/03/21 22:50 Interface Orders SARS-CoV-2 Antigen (Rapid) - Final ABG: ABG 04/03/21 23:46 Specimen Type ART Sample Site R Radial pH 7.34 L Bicarbonate Actual 23.6 Total CO2 25 Base Excess -2 O2 Saturation 94 L O2 % 45 ABG pCO2 44.0 ABG pO2 77 Oz Test Positive Respiration Rate 12 O2 Delivery Device BiPAP POC PEEP 9 Radiography Diagnostic Testing: Radiology Impression Chest X-Ray 04/03/21 23:12 IMPRESSION: Bilateral hazy airspace disease suspicious for pneumonia including atypical or viral pneumonia. at 2332 Reported and signed by: Cam Hdz MD Electronically Signed: Cam Hdz MD at 23:30 EDT Tel , Service support , Chest CTA 04/04/21 00:00 IMPRESSION: No evidence of pulmonary embolism. Abnormal appearance of the bilateral lungs with differential diagnosis as above. Electronically Signed: Nigel Santoro MD at 2:11 EDT Tel , Service support , Echocardiogram 04/04/21 05:55 Interpretation Summary Normal LV size. The estimated ejection fraction is 15 %. Severe segmental systolic dysfunction (see wall motion). Stage 2 diastolic dysfunction. Pulmonary artery systolic pressure is 24 mmHg. Contrast injection was performed. Ordering Physician: Gagan Brady Referring Physician: Cherie Deluca M.D. Performed By: Katie Ordoñez RDCS Meaningful Use Info Meaningful Use Diagnoses (Choose all that apply): AMI and CHF AMI/Post PCI/Angioplasty Aspirin given w/in 24hrs of arrival?: Yes ASA at discharge?: Yes Antiplatelet Therapy at Discharge:: Yes Statins at discharge?: Yes Harry/ARB at discharge?: Yes Beta Atul at discharge?: Yes Done w/ Acute UT measure.: Yes Documented LVEF (%): 15 CHF HARRY/ARB ordered at discharge?: Yes Documented LVEF (%): 15 Discharge Plan Admission Admit Date/Time: 04/04/21 03:19 Attending Provider: Galina Suárez Primary Care Provider: Cherie Deluca Consulting Providers: Michael Amezquita Discharge Orders/Prescriptions Prescriptions: No Action cholecalciferol (vitamin D3) [Vitamin D3] 10 mcg (400 unit) tablet 1,000 unit PO DAILY RF: 0 carvedilol 6.25 MG tablet 6.25 mg PO BID RF: 0 insulin glargine 100 UNIT/ML solution 50 unit SQ DAILY RF: 0 quinapril 10 MG tablet 10 mg PO DAILY RF: 0 metformin 1,000 MG tablet 1,000 mg PO BID RF: 0 glimepiride 4 MG tablet 4 mg PO DAILY RF: 0 magnesium 200 MG tablet 400 mg PO DAILY RF: 0 insulin aspart U-100 [Novolog Flexpen U-100 Insulin] 100 unit/mL (3 mL) Insulin Pen 20 unit SUBCUT BID RF: 0 Referrals / Follow Up: Cherie Deluca MD [Primary Care Provider] - Disposition Disposition (needs filled in before D/C Order can be placed): Acute Care Hospital Visit Charges Inpatient E&M: 79889 Disch Hosp
[2021-04-08 12:08] LABS: Epinephrine, Pl 108 pg/mL (0-62); Norepinephrine, Pl 1110 pg/mL (0-874)
[2021-04-08 15:12] LABS: Dopamine, Pl 55 pg/mL (0-48)
== END 2021-04-04 17:22 | disposition short-term general hospital (02) | DRG 280 ==
LOC: ED 04-04 02:27 → PCU 04-04 03:21
PROVIDERS: Admitting Provider Hospitalist; Emergency Provider Emergency Medicine; PCP Family Medicine; Visit Provider Student in an Organized Health Care Education/Training Program
DX: I21.4 Non-ST elevation (NSTEMI) myocardial infarction (principal); J96.01 Acute respiratory failure with hypoxia; I50.21 Acute systolic (congestive) heart failure; F17.200 Nicotine dependence, unspecified, uncomplicated; D35.00 Benign neoplasm of unspecified adrenal gland; E11.65 Type 2 diabetes mellitus with hyperglycemia; Z79.4 Long term (current) use of insulin; I25.10 Atherosclerotic heart disease of native coronary artery without angina pectoris; I11.0 Hypertensive heart disease with heart failure
CPT/HCPCS: 36415; 36600; 71045; 71275; 80048; 80053; 80061; 82384; 82533; 82803; 82962; 83605; 83880; 84484; 85025; 87040; 87426; 87633; 93005; 93306; 93458; 94002; 94640; 99152; 99153; 99285; J7030; Q9957; Q9967; A4216; C1769; C1894; C8929; J1940

== ENCOUNTER → 2021-04-18 16:47 | Outpatient (CLI) | payer MEDICARE, SELFPAY ==
[2021-04-04 04:23] VITALS: BMI 33.5
[2021-04-18 18:05] LABS: Anion Gap 8 (5-15); BNP,B-Type NATRIURETIC PEPTIDE 477.1 pg/mL (0-100); BUN 34 mg/dL (7-18); BUN/Creat Ratio 22.5 RATIO (10-20); Chloride 104 mmol/L (98-107); Creatinine, Serum 1.51 mg/dL (0.55-1.02); EST Glomerular Filtration Rate 36 mL/min (>60); Est Glom Filt Rate - Afr Amer 44 mL/min (>60); Glucose 63 mg/dL (74-106); Potassium 4.5 mmol/L (3.5-5.1); Sodium Level 135 mmol/L (136-145)
== END ==
PROVIDERS: PCP Family Medicine; Referring Provider Family Medicine
DX: I25.5 Ischemic cardiomyopathy (principal)
CPT/HCPCS: 36415; 80048; 83880

== ENCOUNTER → 2021-04-25 08:40 | Outpatient (CLI) | payer MEDICARE, SELFPAY ==
[2021-04-04 04:23] VITALS: BMI 33.5
[2021-04-25 10:30] LABS: Anion Gap 7 (5-15); BUN 25 mg/dL (7-18); BUN/Creat Ratio 19.2 RATIO (10-20); Calcium,Total 10.3 mg/dL (8.5-10.1); Chloride 106 mmol/L (98-107); EST Glomerular Filtration Rate 43 mL/min (>60); Est Glom Filt Rate - Afr Amer 52 mL/min (>60); Glucose 132 mg/dL (74-106); Potassium 4.4 mmol/L (3.5-5.1); Sodium Level 140 mmol/L (136-145)
== END ==
PROVIDERS: PCP Family Medicine
DX: I25.5 Ischemic cardiomyopathy (principal); I21.4 Non-ST elevation (NSTEMI) myocardial infarction
CPT/HCPCS: 36415; 80048

== ENCOUNTER → 2021-05-05 15:26 | Outpatient (CLI) | payer MEDICARE, SELFPAY ==
[2021-04-04 04:23] VITALS: BMI 33.5
[2021-05-05 17:44] LABS: Hematocrit 37.2 % (37-47); Hemoglobin 11.9 g/dL (12.0-15.0); Mean Corpuscular Hgb 27.7 pg (27.0-32.0); Mean Corpuscular Volume 86.5 fL (81-99); Platelet Count 174 K/mm3 (150-450); RBC Distribution Width CV 15.5 % (11.6-14.6); RBC Distribution Width SD 48.6 fl (35.1-43.9); White Blood Count 8.7 K/mm3 (4.4-11.0)
[2021-05-05 18:06] LABS: Anion Gap 9 (5-15); BUN 21 mg/dL (7-18); Calcium,Total 10.3 mg/dL (8.5-10.1); Chloride 103 mmol/L (98-107); Creatinine, Serum 1.31 mg/dL (0.55-1.02); EST Glomerular Filtration Rate 43 mL/min (>60); Est Glom Filt Rate - Afr Amer 51 mL/min (>60); Glucose 203 mg/dL (74-106); Potassium 4.4 mmol/L (3.5-5.1); Sodium Level 137 mmol/L (136-145)
== END ==
PROVIDERS: PCP Family Medicine
DX: I25.10 Atherosclerotic heart disease of native coronary artery without angina pectoris (principal)
CPT/HCPCS: 36415; 80048; 85027

== ENCOUNTER → 2021-06-10 07:44 | Outpatient (CLI) | payer MEDICARE, SELFPAY ==
[2021-04-04 04:23] VITALS: BMI 33.5
--- NOTE | 2021-06-10 07:56 | CR.ITP_ITS ---
Diagnosis - General Information Admitting Diagnosis: PTCA with coronary stent placement Secondary Diagnosis: ASHD, CHF, cardiomyopathy, HTN, Hyperlipidemia Personal Learning Style:: Audio/Visual, Written Barriers to Learning: Vision Impairment Stage of change r/t lifestyle modifications:: Action Gave educational material for:: Treating Heart Disease, Emotions & Heart Disease, Stress Management & Relaxation, Sleep Disorders & Heart Disease, How The Heart Works, What it means to have Heart Disease, How Coronary Artery Disease is Diagnosed, Heart Procedures, What Heart Medications Do, Risk Factors & Modifications, Living an Active Life, Nutrition - Education/Goals Individual Counseling: Initial Assessment: Abnormal Cholesterol Levels, High Blood Pressure, Overweight/Obesity, Diabetes, Metabolic Syndrome (as evidenced by 3 of 5 A-E below), A. Fasting Blood Sugar >100, C. High Triglycerides >150 - 236, Hypertension, Low HDL <40/Males or <50/Females - 33 Cardiac Rehabilitation Goals: 1. Maintain the individual as the primary focus of care. 2. To improve the patient's quality of life. 3. Identification of cardiac risk factors and provide cardiac risk factor management. 4. Enhance the psychosocial status of the patient. 5. Reconditioning enough to allow the patient to resume customary activities. 6. Control symptoms of cardiac disease Personal Goals: Initial Assessment: Quit smoking (participate in smoking cessation, Improve management of stress and emotions, Improve energy level, Get back to work, or to resume activities faster, Improve knowledge of cardiac disease, Improve muscle strength and endurance, Improve diet and eating habits (eat healthier), Control risk factors (learn risk factor modification), Other goal: - Bowling Scale for measuring improvement of personal goals: Enter appropriate number in Comments. 2 = Unchanged. 3 = Slightly Better. 4 = Moderate Improvement. 5 = Met my Goal - Diagnosis & Disease Process Outcomes/Goals: Pt IDs own risk factors & lifestyle modifications by Session 10, Verbalizes symptoms of angina & response by session 3., Pt independently manages Plan/Interventions: Assist Pt to ID & engage in lifestyle modification to reduce CVD risk, Instruct on individual risk factors, Review symptoms of angina & emergency actions, Review secondary diagnosis & identify educational needs. - Safety Referral to Physical Therapy: No Referral to [facility] Case Management: No Fall Risk Assessed:: Yes Assistive Devices:: None Exercise - Initial Assessment - Visit Date of Eval: 06/10/21 Session #:: 0 - Pre-cardiac Rehab evaluation Mets: Pre-: >5 METS for 30 minutes by discharge - Physician Prescribed Exercise Modalities: Treadmill, Airdyne, NuStep, SciFit Frequency: 3x/week for 12 weeks [36 sessions] Intensity: 60-80% of age predicted maximum heart rate reserve Current METSs:: 3.0 Target Heart Rate:: 89-119 Resting Blood Pressure: 126/78 - Outcomes & Goals Goals:: Verbalizes understanding of THR, RPE & goal METS by session 6, Documents in home exercise log/reports 30 min aerobic 5 day/wk by DC, Demonstrates accurate pulse taking by DC - Intervention & Plan Exercise Program Goals: Instruct on personal THR & RPE, Instruct on MET level & personal MET goal, Show patient to take own pulse /validate performance until accurate, Instruct on home exercise - Physical Activity Home Exercise Physical Activity - Home Exercise: Safe Exercise, Warm-up, Self-monitoring, Cool-Down, Home Exercise > 30 min Daily, Sitting Time <3 hours/daily - Outcomes & Goals Outcomes/Goals: Demonstrates correct Warm-up/exercise Cool-Down (S3) if = 2.5 METs, Verbalizes symptoms of exercise intolerance by Session 3 (S3), Demonstrate safe equipment use (S3) & follows exercise prescrition (6) - Intervention & Plan Plan/Intervention: Instruct warm-up & cool-down if exercising at > 2 METs, I nstruct on symptoms of exercise intolerance & actions to take, Instruct & monitor on saf, Assess intial functional capacity & safety risk Nutrition - Initial Assessment - Program Goals Nutrition Program Goals: LDL <100 optimal. 100 - 129 Near optimal. 130 - 159 Borderline High. 160 - 189 High. Total Cholesterol <200 desirable. 200 - 239 Borderline High. >/= 240 High. HDL < 40 Low >/=60 High. Triglycerides <150 desirable. <199 optimal. VlDL 5 - 40. HgbA1C <7%. BMI <25 Patient has diagnosis of Hyperlipidemia (ICD E78)?: Yes - Visit Date of Assessment:: 06/10/21 Session #:: 0 - Pre-cardiac rehab evaluation - Cholesterol/Lipids Triglycerides (mg/dL): 236 Total Cholesterol (mg/dL): 169 LDL Cholesterol (mg/dL): 89 HDL Cholesterol (mg/dL): 33 Determine presence & major risk factors that modify LDL goal: Hypertension or hypertensive medication, Low HDL cholesterol <40 mg/dL*, Family history of premature CHD in Male < 55 years: female <65 yearsFa, Age men > 45 years; women >/= 55 years Outcomes/Goals: Pt IDs own risk factors & lifestyle modifications by Session 10, Verbalizes symptoms of angina & response by session 3., Pt independently manages Intervention/Plan: Instruct on personal lipid levels & lipid goals/NCEP guidelines, Instruct on cholesterol Referral to dietitian:: Yes - Medical Nutrition Therapy - Diabetes (Other Core Measures) Diabetes Type: Diagnosis Type II ICD-10 E11 Insulin dependent injection/pump?: Yes Non-Insulin Dependent?: Yes Do you monitor your blood sugar at home?: Yes Referral to Diabetic Clinic:: Yes Outcomes/Goals:: Able to state symptoms of, Able to state, Able to state Intervention/Plan:: Instruct on, Refer to, Instruct on - Weight Mgt (Other Care) Not Applicable: No Height: 5 ft 5 in Weight:: 193 lb BMI: 32.1 Diagnosis Overweight/Obesity BMI> 30% ICD-10 E66: Yes Diagnosis High BMI/Morbid Obesity BMI> 35% ICD-10 Z68: No Outcomes/Goals: Pt sets, maintains & shows weight loss goal & trend during rehab Intervention/Plan: Instruct on ideal BMI & set weight loss goal w/patient, Assist pt to ID & incorporate diet changes for weight loss by S9, Refer to Structured Weight Loss program as appropriate, Encourage goal of using 250- 300dcal per session for weight loss - Healthy Eating Habits Will attend diet classes:: Yes Outcomes/Goals:: Consume diet rich in vegs,fruits,whole grain/high fiber,fish,lean meat, Limit sat/trans fats,cholesterol & added salts & sugars Intervention/Plan:: Assess current eating habits - Education Gave educational materials for:: Signs & symptoms of hypoglycemia, Signs & symptoms of hyperglycemia, Relate diabetes to coronary artery disease, Healthy eating Nutrition - 30-Day Assessment Nutrition - 60-Day Assessment Nutrition - 90-Day Assessment Nutrition - Final Assessment Medical - Initial Assessment - Visit Date of Eval: 06/10/21 Session #:: 0 - Pre-cardiac rehab evaluation - Medication Compliance Preventative Medication(s):: Ticagrelor/P2Y12 inhibitor, Statin/lipid, Beta laurel H/O mental health issues: depression, anxiety, or addiction?: No Doesn?t believe in the benefits of treatment?: No Believes medications are unnecessary or harmful?: No Has a concern about medication side effects?: No Expresses concern over the cost of medications?: No Outcomes/Goals: Verbalizes medications,desired effect & common side effects @ DC, Pt self-reports following medication regimen, Keeps card in wallet w/medications listed by DC Interventions/plans: Instruct on medication effects & side effects, Review medication list w/patient every two weeks, Instruct importance of taking meds as ordered & assist problem solving - Tobacco Use Tobacco Use: Non-smoker - Hypertension Hypertension Diagnosis:: Hypertension ICD-10 I10 Resting Blood Pressure:: 126/78 [employer] Hypertension Guidelines: [place] [employer] Hypertension Guidelines. Normal BP Less than 120/80. Elevated BP 120/80. Hypertension Stage 1: BP 130-139/80-89. Hypertesnion Stage 2: BP 140 or higher/90 or higher. Hypertension Crisis: BP higher than 180/120 Outcomes/Goals: Able to verbalize/achieve optimal blood pressure <130/80, Incorporates diet changes & exercise for blood pressure control by DC Interventions/plan: Instruct on optimal blood pressure, hypertension & medications, Instruct on effects of sodium, alcohol, stress, exercise &hypertension - Tobacco Cessation Referral Smoking Cessation Referral:: No Individual Education/Counseling:: No Education Schedule Given:: Yes Medical- 30-Day Assessment Medical- 60-Day Assessment Medical- 90-Day Assessment Medical - Final Assessment Psychosocial - Initial Assess - VIsit Date of Eval: 06/10/21 Session #:: 0 - Pre-cardiac rehab evaluation Not Applicable: Yes History of previous Mental disease:: No - Psychosocial Test Tool Used:: [employer] AS QOL Cardiac, PHQ-9 Questionnaire phq-9 Severity: Severity. 1-4 Minimal Depression. 5-9 Mild Depression. 10-14 Moderate Depression. 15-19 Moderately Sever Depression. 20-27 Severe Depression. Rule: - Referral to Behavioral Health PS - Interventions: Yes Attend Stress Management Classes, No Referral to Behavioral Health if PHQ-9 score >9:, No Referral to [facility], No Referral to Physician if PHQ-9 if score is 5-9: - Outcomes/Goals: See list Psychosocial Outcomes/Goals:: ID's personal stressors & 2 strategies to manage stress by discharge - Intervention/Plan: See List Interventions/Plan:: Assess stressors,coping strategies & signs of derpression on admission, Instruct/assist pt to develop coping & personal stress Mgt strategies, Instruct patient to recognize signs & symptoms of depression, Instruct patient to recog Psychosocial - 30-Day Assess Psychosocial - 60-Day Assess Psychosocial - 90-Day Assess Psychosocial - Final Assessmen Patient Health Questionnaire Initial Assessment 1. Little interest or pleasure in doing things: Not at all 2. Feeling down, depressed, or hopeless: Several days 3. Trouble falling or staying asleep, or sleeping too much: More than half the days 4. Feeling tired or having little energy: More than half the days 5. Poor appetite or overeating: Not at all 6. Feeling bad about yourself -- or that you are a failure or have let yourself or your family down: Not at all 7. Trouble concentrating on things, such as reading the newspaper or watching television: Not at all 8. Moving or speaking so slowly that other people could have noticed. Or the opposite - being so fidgety or restless that you have been moving around a lot more than usual: Not at all 9. Thoughts that you would be better off , or of hurting yourself in some way: Not at all How difficult have these problems made it for you to do your work, take care of things at home, or get along with other people?: Somewhat difficult Total Score: 5 MICHELLE-Q SV Test - Statements CAD is a disease of the arteries in the heart: False Examples of risk factors for heart disease: True Angina is chest pain or discomfort: True The benefits of resistance training include: True Eating more meat and dairy products: False Anti-platelet medications such as aspirin are important: True The only effective way to manage stress: I Don't Know An exercise warm-up slowly increases heart rate: True Prepared, processed foods usually have high sodium: True Depression is common after a heart attack: I Don't Know The statin medications lower cholesterol: True To control blood pressure, lower the amount of sodium: True If someone gets chest discomfort during walking: False Transfats are partially hydrogenated vegetable oils: True Sleep apnea that is not treated increases the risk: False To control cholesterol, one should become a vegetarian: False Someone knows if he/she is exercising at the right level: True Diabetes cannot be prevented with exercise & health eating: False Stress is a large risk for heart attack: True A diet that can help lower blood pressure is rich in: True - Total Score Total Correct Responses: 18 Self-Efficacy Initial Assessment We would like to know how confident you are in doing certain activities. Please select your confidence level for:: Select your confidence level for the following using the scale 1-10 where 1 is not at all confident and 10 is totally confident. Your score is the average of all 6 responses. Fatigue: How confident are you that you can keep the fatigue caused by your disease from interfering with the things you want to do? Select Number: 4 Physical Discomfort or Pain: How confident are you that you can keep the physical discomfort or pain of your disease from interfering with the things you want to do? Select Number: 5 Emotional Distress: How confident are you that you can keep the emotional distress caused by your disease from interfering with the things you want to do? Select Number: 5 Other Symptoms or Health Problems: How confident are you that you can keep other symptoms or health problems from interfering with the things you want to do? Select Number: 6 Different Tasks and Activities: How confident are you that you can do the different tasks and activities needed to manage your health condition so as to reduce your need to see a doctor? Select Number: 9 Medication: How confident are you that you can do things other than just taking medication to reduce how much your illness affects your everyday life? Select Number: 9 Total Score:: 6 Nutrition Survey - Nutrition Survey Initial Have you lost >10 lbs over the past 2 months without trying?: No Are you following a special diet at home for diabetes, low fat, or low salt?: Yes Are you interested in meeting with a dietitian for help understanding your diet?: Yes Do you eat less than 3 meals a day?: No Do you eat fatty meats (chow, sausage, ribs, etc), fried foods, desserts, large amounts of salad dressings, margarine, butter, or cheese most days?: No Do you have food allergies? [Enter types in comment field]: No Do you eat in restaurants more than 3 times a week?: No Do you season food with salt, seasoning salt, or garlic salt?: No Do you used canned, boxed, frozen meals, or soups, seasoning packets?: No Total Score:: 2
--- NOTE | 2021-06-10 07:57 | PCM.CR.HP2 ---
CR - History & Physical - General Arrival date:: 06/10/21 Arrival time:: 07:50 Date of Referral:: 05/23/21 Date of CR Evaluation:: 06/10/21 Referring Physician: Dr. Johnathan Cervantes [facility] - [facility] - History of Present Cardiac Event Onset Date: Enter Onset Date of cardiac illnesses in Comment field below Acute Myocardial Infarction within 12 months:: Yes - NSTEMI PTCA or coronary stenting:: Yes - two stents 04/09/2021 then two more on 04/29/2021 Type of Symptoms:: Chest pressure, severe heart burn, low oxygen saturation difficulty breathing Interventions with present event:: Heart cath sone here, determined to be sent to [facility] for possible CABG. - Sleep Disorder Evaluation Hx of Sleep Apnea: No Do you snore loudly (louder than talking or can be heard through closed doors)?: No Do you often feel tired/ fatigued/ sleepy during daytime?: Yes Has anyone observed you stop breathing during sleep?: No History of Hypertension (for STOP score): Yes - alot of leg pain, cramps at night possibly from the crestor. STOP Results: Positive - Medications Home Medications: Ambulatory Orders Medication Instructions Recorded carvedilol 6.25 mg PO BID 02/10/19 glimepiride 4 mg PO DAILY 02/10/19 insulin glargine 50 unit SQ DAILY 02/10/19 magnesium 400 mg PO DAILY 02/10/19 metformin 1,000 mg PO BID 02/10/19 quinapril 10 mg PO DAILY 02/10/19 cholecalciferol (vitamin D3) 10 1,000 unit PO DAILY 01/18/20 mcg (400 unit) tablet insulin aspart U-100 [Novolog 20 unit SUBCUT BID 04/04/21 Flexpen U-100 Insulin] Lantus U-100 Insulin 06/10/21 aspirin 81 mg PO DAILY 06/10/21 carvedilol [Coreg] 12.5 mg PO BID 06/10/21 empagliflozin [Jardiance] 10 mg PO DAILY 06/10/21 insulin aspart U-100 [Novolog 06/10/21 U-100 Insulin aspart] mag fi-psgaptr-stsjugcuq-e-michael 400 PO 06/10/21 nitroglycerin [Nitrostat] 0.4 mg SUBLINGUAL Q5M PRN 06/10/21 pantoprazole [Protonix] 40 mg PO DAILY 06/10/21 rosuvastatin [Crestor] 40 mg PO DAILY 06/10/21 spironolactone [Aldactone] 25 mg PO DAILY 06/10/21 ticagrelor [Brilinta] 90 mg PO BID 06/10/21 - Allergies Allergies/Adverse Reactions: Allergies acetaminophen [From Percocet] Adverse Reaction (Verified 04/03/21 22:52) Vomiting cefuroxime Adverse Reaction (Verified 04/03/21 22:52) Other oxycodone [From Percocet] Adverse Reaction (Verified 04/03/21 22:52) Vomiting tetracycline Adverse Reaction (Verified 04/03/21 22:52) Itching Advanced Directives - Advanced Directives Power of Seed Core Operator: No Living Will: Yes Advance Directives Information Provided: No Advance Directives on File: No DNR Order?:: No - MOLST See MOLST form: No Past Medical History - Covid-19 Screening Fever: No - Patient has not been COVID-19 Vaccination Unexplained muscle aches: No Current respiratory symptoms: No Upper respiratory infections symptoms: No Gastro-intestinal symptoms: No [id number] symptoms: No Has tested positive for COVID-19 in last 30 days: No Had contact w/person w/symptoms or Covid-19 (+) last 14 days: No Has High Risk Exposures ID'd by Health dept/Inf Control team: No 65 years or older:: Yes Lives in Assisted Living facility:: No Has a chronic lung disease or moderate to severe asthma:: No Has a serious heart condition:: No Immunocompromised:: No Severely obese (Body Mass Index of 40 or higher):: No Diabetic:: Yes Has chronic kidney disease undergoing dialysis:: No Has liver disease:: No - Past Medical Illness Medical History: Past Medical History (Last Updated 04/04/21 @ 14:31 by Carolyn Hanna) Anemia D64.9 Arthritis M19.90 Cancer C80.1 Diabetes E11.9 History of back problems History of ovarian cancer Z85.43 Irregular heart beat I49.9 Scalp cyst L72.9 Sebaceous cyst L72.3 Smoker F17.200 - Past Surgical History Surgical History: Past Surgical History (Last Updated 04/04/21 @ 14:31 by Carolyn Hanna) History of appendectomy Z90.49 History of back surgery Z98.890 History of bilateral salpingo-oophorectomy Z90.79, Z90.722 History of left heart catheterization Onset Date: 04/04/21 Z98.890 History of ventral hernia repair Z98.890, Z87.19 History of ventral hernia repair Z98.890, Z87.19 - Family History Summary Family History: Family History (Last Reviewed 04/04/21 @ 07:[address] Geovanni Escobar MD) Mother Arthritis Cancer lung cancer Osteoporosis Brother Diabetes Social History - Smoking History Smoking Status: Former smoker Years Smokin Packs Smoked per Day: 1 Hx Smoking Cessation Date: 04/03/21 Hx Tobacco Use: No Hx Smoking Exposure: No - Alcohol Use Alcohol Usage: No - Substance Abuse Hx Substance Use: No - Occupation Occupation (List type of work in comments):: Employed Hours worked per day:: 8 Returned to work on:: 08/10/20 - sit down job - Hobbies, Recreation, Social Activities Hobbies: Sports - Bowling, Other Recreational Activities: I am able to engage in most, but not all activities Social Environment - Status Marital Status: - Current Living Arrangements Living Environment:: Spouse - Children How many children do you have?: 0 Do any of your children live nearby?: No - Safety Do you feel safe in your surroundings?: Yes - Assistance Do you need any assistance at home?: no Review of Systems - Review of Systems Hints: Right click = Denies ([place]ash). Left click = Reports ([place]) Review of Present Symptoms: Reports: Shortness of Breath with Exertion - still get short of breath alot., Dizziness/Lightheadedness, Fatigue, Appetite - Normal, Appetite - Special Diet - try to watch what I eat due to DM. Denies: Shortness of Breath at Rest, Heart Arrhythmia/Irregularities, Sleep - Normal - getting awakened at night alot with leg cramps and pain possibly from the crestor. - Pain Is Patient Pain Free?: Yes Pain Location: none, back - chronic back pain; h/o two previous back surgeries. Pain Level: 0/10 Risk Factor Assessment - Vital Signs Temperature: 97.4 F Respiratory Rate: 16 Pulse Ox: 95 Blood Pressure: 126/78 - Pulse Pulse Rate: 68 Pulse Rhythm: Regular - Hypertension How long have you been treated?: 2008 Blood Pressure Sitting - Left Arm: 126/78 - Blood Cholesterol/Lipids Total Cholesterol (mg/dL) Goal = less than 200 mg/dL: 169 HDL Cholesterol (mg/dL) Goal = less than 40 mg/dL: 33 LDL Cholesterol (mg/dL) Goal = less than 70 mg/dL: 89 Triglycerides (mg/dL) Goal = less than 150 mg/dL: 236 - Diabetes Diabetic History: Type II Nutrition Referral for Diabetes: Yes - Obesity Height: 5 ft 5 in Weight:: 193 lb Weight in Pounds: 193.0 lbs Weight Source: Stated by Patient Body Mass Index (BMI): 32.1 Nutritional Referral for Obesity: Yes - Physical Inactivity Physical Inactivity: Reg Exercise 30 min/day, Physically demanding job, Recreational activity - Risk Stratification Risk Guidelines: Lowest Risk: Risk Factor for Smoking, Risk Factor for Hypertension, Risk Factor for Sedentary Lifestyle, Risk Factor for Depression, Moderate Risk: Risk Factor for Dyslipidemia, Risk Factor for Diabetes, Highest Risk: Risk Factor for Obesity - Family History Family History: Family History (Last Reviewed 04/04/21 @ 07:[address] Geovanni Escobar MD) Mother Arthritis Cancer Osteoporosis Brother Diabetes Motivation - Motivation to Participate On a scale of 1 to 10, how prepared are you to commit to attending program?: 10 What do you see as barriers to successfully being able to complete the program?: no What do you see as the benefits of succesfully completing the program? In other words, what do you hope to get out of participating in the program?: getting healthier Are there issues you are dealing with that will interfere with completing the program?: no Do you have a spouse or signficant other, family or friends who will help support you to complete the program?: yes
[2021-06-10 08:40] VITALS: BP 126/78; BMI 32.1
[2021-06-10 09:01] VITALS: BP 126/78; PULSE 68; RESP 16; TEMP 36.3; O2SAT 95; BMI 32.1
== END ==
PROVIDERS: PCP Family Medicine
DX: Z95.5 Presence of coronary angioplasty implant and graft (principal)

== ENCOUNTER 2021-06-27 15:15 | Outpatient (RCR) | payer MEDICARE, SELFPAY ==
[2021-06-10 08:40] VITALS: BMI 32.1
[2021-06-10 09:01] VITALS: BMI 32.1
== END 2021-06-28 23:59 ==
LOC: CR 15:15
PROVIDERS: PCP Family Medicine
DX: I25.10 Atherosclerotic heart disease of native coronary artery without angina pectoris (principal)
CPT/HCPCS: 93798

== ENCOUNTER 2021-07-14 15:44 | Outpatient (RCR) | payer MEDICARE, SELFPAY ==
[2021-06-10 08:40] VITALS: BMI 32.1
[2021-06-10 09:01] VITALS: BMI 32.1
[2021-07-09 09:44] VITALS: BMI 31.5
== END 2021-07-29 23:59 ==
LOC: DC 15:44
PROVIDERS: PCP Family Medicine
DX: E11.9 Type 2 diabetes mellitus without complications (principal); I25.10 Atherosclerotic heart disease of native coronary artery without angina pectoris; I50.9 Heart failure, unspecified
CPT/HCPCS: 93798; 97802

== ENCOUNTER 2021-07-28 15:15 | Outpatient (RCR) | payer MEDICARE, SELFPAY ==
[2021-06-10 08:40] VITALS: BMI 32.1
[2021-06-10 09:01] VITALS: BMI 32.1
--- NOTE | 2021-07-09 09:33 | CR.ITP_ITS ---
Diagnosis - General Information Admitting Diagnosis: PTCA with coronary stent Exercise - 30-day Assessment - Visit Date of Eval: 07/09/21 Session #:: 12 - Physician Prescribed Exercise Modalities: NuStep, SciFit Frequency: 3x/week for 12 weeks [36 sessions] Intensity: 60-80% of age predicted maximum heart rate reserve Current METSs:: 5 Target Heart Rate:: 89-119 Current RPE:: 11-13 Maximum Excercise HR:: 114 Resting Blood Pressure: 124/50 Maximum Exercise Blood Pressure: 124/62 EKG Type: NSR to sinus tachy with rare PVC - Outcomes & Goals Goals:: Verbalizes understanding of THR, RPE & goal METS by session 6, Documents in home exercise log/reports 30 min aerobic 5 day/wk by DC, Demonstrates accurate pulse taking by DC, Other additional outcome/goals: see below - Intervention & Plan Exercise Program Goals: Instruct on personal THR & RPE, Instruct on MET level & personal MET goal, Show patient to take own pulse /validate performance until accurate, Instruct on home exercise, Other additional plan/int - 30-day Reassessments 30 day Reassessments:: Progressing - Physical Activity Home Exercise Physical Activity - Home Exercise: Safe Exercise, Warm-up, Self-monitoring, Cool-Down, Home Exercise > 30 min Daily, Sitting Time <3 hours/daily - Outcomes & Goals Outcomes/Goals: Demonstrates correct Warm-up/exercise Cool-Down (S3) if = 2.5 METs, Verbalizes symptoms of exercise intolerance by Session 3 (S3), Demonstrate safe equipment use (S3) & follows exercise prescrition (6), Other: See below - Intervention & Plan Plan/Intervention: Instruct warm-up & cool-down if exercising at > 2 METs, Instruct on symptoms of exercise intolerance & actions to take, Instruct & monitor on saf, Assess intial functional capacity & safety risk, Other See below - 30-day Reassessments 30 day Reassessments:: Progressing Nutrition - Initial Assessment Nutrition - 30-Day Assessment - Program Goals Nutrition Program Goals: LDL <100 optimal. 100 - 129 Near optimal. 130 - 159 Borderline High. 160 - 189 High. Total Cholesterol <200 desirable. 200 - 239 Borderline High. >/= 240 High. HDL < 40 Low >/=60 High. Triglycerides <150 desirable. <199 optimal. VlDL 5 - 40. HgbA1C <7%. BMI <25 Patient has diagnosis of Hyperlipidemia (ICD E78)?: Yes - Visit Date of Assessment:: 07/09/21 Session #:: 12 - Cholesterol/Lipids Determine presence & major risk factors that modify LDL goal: Hypertension or hypertensive medication, Low HDL cholesterol <40 mg/dL*, Family history of premature CHD in Male < 55 years: female <65 yearsFa, Age men > 45 years; women >/= 55 years Outcomes/Goals: Pt IDs own risk factors & lifestyle modifications by Session 10, Verbalizes symptoms of angina & response by session 3., Pt independently manages, Other Additional Outcomes/Goals: Intervention/Plan: Advocate for lipid panel cholesterol medication if applicable, Instruct on personal lipid levels & lipid goals/NCEP guidelines, Instruct on cholesterol, Other additional plan/int Referral to dietitian:: Yes 30-day Reassessments:: Progressing - Diabetes (Other Core Measures) Diabetes Type: Diagnosis Type II ICD-10 E11 Fasting blood glucose:: 220 Non-Insulin Dependent?: Yes Do you monitor your blood sugar at home?: Yes Referral to Diabetic Clinic:: Yes Outcomes/Goals:: Able to state symptoms of, Able to state, Able to state, Other additional Intervention/Plan:: Instruct on, Refer to, Instruct on, Other 30-day Reassessments:: Progressing - Weight Mgt (Other Care) Height: 5 ft 5 in Weight:: 85.956 kg BMI: 31.5 Diagnosis Overweight/Obesity BMI> 30% ICD-10 E66: Yes Intervention/Plan: Instruct on ideal BMI & set weight loss goal w/patient, Assist pt to ID & incorporate diet changes for weight loss by S9, Refer to Structured Weight Loss program as appropriate, Encourage goal of using 250- 300dcal per session for weight loss, Other additional plan/interventions 30 day Reassessments:: Progressing - Healthy Eating Habits Will attend diet classes:: Yes Outcomes/Goals:: Consume diet rich in vegs,fruits,whole grain/high fiber,fish,lean meat, Limit sat/trans fats,cholesterol & added salts & sugars, Other additional outcome/goals: Intervention/Plan:: Assess current eating habits, Other Additional plan/interventions 30-day Reassessments:: Progressing - Education Gave educational materials for:: Signs & symptoms of hypoglycemia, Signs & symptoms of hyperglycemia, Relate diabetes to coronary artery disease, Healthy eating Nutrition - 60-Day Assessment Nutrition - 90-Day Assessment Nutrition - Final Assessment Medical - Initial Assessment Medical- 30-Day Assessment - Visit Date of Eval: 07/09/21 Session #:: 12 - Medication Compliance Preventative Medication(s):: Ticagrelor/P2Y12 inhibitor, Statin/lipid, Beta laurel H/O mental health issues: depression, anxiety, or addiction?: No Doesn?t believe in the benefits of treatment?: No Believes medications are unnecessary or harmful?: No Has a concern about medication side effects?: No Expresses concern over the cost of medications?: No Outcomes/Goals: Verbalizes medications,desired effect & common side effects @ DC, Pt self-reports following medication regimen, Keeps card in wallet w/medications listed by DC, Other additional outcome/goals: 30-day Reassessments:: Progressing - Tobacco Use Tobacco Use: Non-smoker Do you use smokeless tobacco?: No 30-day Reassessments:: Progressing - Hypertension Hypertension Diagnosis:: Hypertension ICD-10 I10 Resting Blood Pressure:: 124/50 [place] [employer] Hypertension Guidelines: [place] [employer] Hypertension Guidelines. Normal BP Less than 120/80. Elevated BP 120/80. Hypertension Stage 1: BP 130-139/80-89. Hypertesnion Stage 2: BP 140 or higher/90 or higher. Hypertension Crisis: BP higher than 180/120 Peak Exercise Blood Pressure:: 124/62 Outcomes/Goals: Able to verbalize/achieve optimal blood pressure <130/80, Incorporates diet changes & exercise for blood pressure control by DC, Other additional outcomes/goals 30 day Reassessments:: Progressing - Tobacco Cessation Referral Smoking Cessation Referral:: No Individual Education/Counseling:: No Education Schedule Given:: Yes Medical- 60-Day Assessment Medical- 90-Day Assessment Medical - Final Assessment Psychosocial - Initial Assess Psychosocial - 30-Day Assess - VIsit Date of Eval: 07/09/21 Session #:: 12 Not Applicable: Yes History of previous Mental disease:: No - Outcomes/Goals: See list Psychosocial Outcomes/Goals:: ID's personal stressors & 2 strategies to manage stress by discharge, Other Additional outcome/goals: - Intervention/Plan: See List Interventions/Plan:: Assess stressors,coping strategies & signs of derpression on admission, Instruct/assist pt to develop coping & personal stress Mgt strategies, Refer to Behavioral Health if appropriate, Refer to Physician if appropriate, Instruct patient to recognize signs & symptoms of depression, Instruct patient to recog, Other additional plan/intervention Psychosocial - 60-Day Assess Psychosocial - 90-Day Assess Psychosocial - Final Assessmen Patient Health Questionnaire 30-Day Re-eval Assessment 1. Little interest or pleasure in doing things: Not at all 2. Feeling down, depressed, or hopeless: Several days 3. Trouble falling or staying asleep, or sleeping too much: More than half the days 4. Feeling tired or having little energy: More than half the days 5. Poor appetite or overeating: Not at all 6. Feeling bad about yourself -- or that you are a failure or have let yourself or your family down: Not at all 7. Trouble concentrating on things, such as reading the newspaper or watching television: Not at all 8. Moving or speaking so slowly that other people could have noticed. Or the opposite - being so fidgety or restless that you have been moving around a lot more than usual: Not at all 9. Thoughts that you would be better off , or of hurting yourself in some way: Not at all How difficult have these problems made it for you to do your work, take care of things at home, or get along with other people?: Somewhat difficult Total Score: 5 Self-Efficacy 30-Day Re-eval Assessment We would like to know how confident you are in doing certain activities. Please select your confidence level for:: Select your confidence level for the following using the scale 1-10 where 1 is not at all confident and 10 is totally confident. Your score is the average of all 6 responses. Fatigue: How confident are you that you can keep the fatigue caused by your disease from interfering with the things you want to do? Select Number: 4 Physical Discomfort or Pain: How confident are you that you can keep the physical discomfort or pain of your disease from interfering with the things you want to do? Select Number: 5 Emotional Distress: How confident are you that you can keep the emotional distress caused by your disease from interfering with the things you want to do? Select Number: 5 Other Symptoms or Health Problems: How confident are you that you can keep other symptoms or health problems from interfering with the things you want to do? Select Number: 6 Different Tasks and Activities: How confident are you that you can do the different tasks and activities needed to manage your health condition so as to reduce your need to see a doctor? Select Number: 9 Medication: How confident are you that you can do things other than just taking medication to reduce how much your illness affects your everyday life? Select Number: 9 Total Score:: 6 Nutrition Survey
[2021-07-09 09:44] VITALS: BP 124/50; BP 124/62; BMI 31.5
== END 2021-07-29 23:59 ==
LOC: CR 15:15
PROVIDERS: PCP Family Medicine
DX: I25.10 Atherosclerotic heart disease of native coronary artery without angina pectoris (principal)
CPT/HCPCS: 93798

== ENCOUNTER 2021-08-06 16:35 | Outpatient (RCR) | payer MEDICARE, SELFPAY ==
[2021-07-09 09:44] VITALS: BMI 31.5
[2021-07-30 00:17] VITALS: BMI 32.1
== END 2021-08-28 23:59 ==
LOC: DC 16:35
PROVIDERS: PCP Family Medicine
DX: E11.9 Type 2 diabetes mellitus without complications (principal); E50.9 Vitamin A deficiency, unspecified; I25.10 Atherosclerotic heart disease of native coronary artery without angina pectoris
CPT/HCPCS: 93798; 97803

== ENCOUNTER 2021-08-27 15:15 | Outpatient (RCR) | payer MEDICARE, SELFPAY ==
[2021-07-09 09:44] VITALS: BMI 31.5
[2021-07-30 00:40] VITALS: BP 124/50; BP 124/62; BMI 32.1
--- NOTE | 2021-08-07 05:28 | PCM.CR.ITP ---
Diagnosis Exercise - 60-day Assessment - Visit Date of Eval: 08/07/21 Session #:: 24 - Physician Prescribed Exercise Modalities: Rower, NuStep, SciFit Frequency: 3x/week for 12 weeks [36 sessions] Intensity: 60-80% of age predicted maximum heart rate reserve Current METSs:: 5.0 no increase Patient has met her goal. Target Heart Rate:: 89-119 Current RPE:: 12-13 Maximum Excercise HR:: 109 Resting Blood Pressure: 128/58 Maximum Exercise Blood Pressure: 140/58 EKG Type: Sinus rhythm to sinus tach with rare PVCs & rare PAC noted. - Outcomes & Goals Goals:: Verbalizes understanding of THR, RPE & goal METS by session 6, Documents in home exercise log/reports 30 min aerobic 5 day/wk by DC, Demonstrates accurate pulse taking by DC - Intervention & Plan Exercise Program Goals: Instruct on personal THR & RPE, Instruct on MET level & personal MET goal, Show patient to take own pulse /validate performance until accurate, Instruct on home exercise - 30-day Reassessments 30 day Reassessments:: Met - Physical Activity Home Exercise Physical Activity - Home Exercise: Safe Exercise, Warm-up, Self-monitoring, Cool-Down, Home Exercise > 30 min Daily, Sitting Time <3 hours/daily - Outcomes & Goals Outcomes/Goals: Demonstrates correct Warm-up/exercise Cool-Down (S3) if = 2.5 METs, Verbalizes symptoms of exercise intolerance by Session 3 (S3), Demonstrate safe equipment use (S3) & follows exercise prescrition (6) - Intervention & Plan Plan/Intervention: Instruct warm-up & cool-down if exercising at > 2 METs, Instruct on symptoms of exercise intolerance & actions to take, Instruct & monitor on saf, Assess intial functional capacity & safety risk - 30-day Reassessments 30 day Reassessments:: Met Nutrition - Initial Assessment Nutrition - 30-Day Assessment Nutrition - 60-Day Assessment - Program Goals Nutrition Program Goals: LDL <100 optimal. 100 - 129 Near optimal. 130 - 159 Borderline High. 160 - 189 High. Total Cholesterol <200 desirable. 200 - 239 Borderline High. >/= 240 High. HDL < 40 Low >/=60 High. Triglycerides <150 desirable. <199 optimal. VlDL 5 - 40. HgbA1C <7%. BMI <25 Patient has diagnosis of Hyperlipidemia (ICD E78)?: Yes - Visit Date of Assessment:: 08/07/21 Session #:: 24 - Cholesterol/Lipids Triglycerides (mg/dL): 236 - 04/04/2021 Total Cholesterol (mg/dL): 169 LDL Cholesterol (mg/dL): 89 HDL Cholesterol (mg/dL): 33 Determine presence & major risk factors that modify LDL goal: Hypertension or hypertensive medication, Low HDL cholesterol <40 mg/dL*, Family history of premature CHD in Male < 55 years: female <65 yearsFa, Age men > 45 years; women >/= 55 years Outcomes/Goals: Pt IDs own risk factors & lifestyle modifications by Session 10, Verbalizes symptoms of angina & response by session 3., Pt independently manages Intervention/Plan: Instruct on personal lipid levels & lipid goals/NCEP guidelines, Instruct on cholesterol Referral to dietitian:: No - Medical Nutrition Therapy on 07/14/2021 30-day Reassessments:: Progressing - Diabetes (Other Core Measures) Diabetes Type: Diagnosis Type II ICD-10 E11 Fasting blood glucose:: 290 Insulin dependent injection/pump?: Yes Non-Insulin Dependent?: Yes Do you monitor your blood sugar at home?: Yes Referral to Diabetic Clinic:: No - Diabetic Education 07/14/2021 Outcomes/Goals:: Able to state symptoms of, Able to state, Able to state Intervention/Plan:: Instruct on, Refer to, Instruct on 30-day Reassessments:: Met - Weight Mgt (Other Care) Not Applicable: No Height: 5 ft 5 in Weight:: 189 lb 8 oz BMI: 31.5 Diagnosis Overweight/Obesity BMI> 30% ICD-10 E66: Yes Diagnosis High BMI/Morbid Obesity BMI> 35% ICD-10 Z68: No Outcomes/Goals: Pt sets, maintains & shows weight loss goal & trend during rehab Intervention/Plan: Instruct on ideal BMI & set weight loss goal w/patient, Assist pt to ID & incorporate diet changes for weight loss by S9, Encourage goal of using 250-300dcal per session for weight loss 30 day Reassessments:: Progressing - Healthy Eating Habits Will attend diet classes:: Yes Outcomes/Goals:: Consume diet rich in vegs,fruits,whole grain/high fiber,fish,lean meat, Limit sat/trans fats,cholesterol & added salts & sugars Intervention/Plan:: Assess current eating habits 30-day Reassessments:: Met - Education Gave educational materials for:: Signs & symptoms of hypoglycemia, Signs & symptoms of hyperglycemia, Relate diabetes to coronary artery disease, Healthy eating Nutrition - 90-Day Assessment Nutrition - Final Assessment Medical - Initial Assessment Medical- 30-Day Assessment Medical- 60-Day Assessment - Visit Date of Eval: 08/07/21 Session #:: 24 - Medication Compliance Preventative Medication(s):: Aspirin, Ticagrelor/P2Y12 inhibitor, Statin/lipid, Beta laurel H/O mental health issues: depression, anxiety, or addiction?: No Doesn?t believe in the benefits of treatment?: No Believes medications are unnecessary or harmful?: No Has a concern about medication side effects?: No Expresses concern over the cost of medications?: No Outcomes/Goals: Verbalizes medications,desired effect & common side effects @ DC, Pt self-reports following medication regimen, Keeps card in wallet w/medications listed by DC Interventions/plans: Instruct on medication effects & side effects, Review medication list w/patient every two weeks, Instruct importance of taking meds as ordered & assist problem solving 30-day Reassessments:: Met - Tobacco Use Tobacco Use: Non-smoker - Hypertension Hypertension Diagnosis:: Hypertension ICD-10 I10 Resting Blood Pressure:: 128/58 [place] [employer] Hypertension Guidelines: [place] [employer] Hypertension Guidelines. Normal BP Less than 120/80. Elevated BP 120/80. Hypertension Stage 1: BP 130-139/80-89. Hypertesnion Stage 2: BP 140 or higher/90 or higher. Hypertension Crisis: BP higher than 180/120 Peak Exercise Blood Pressure:: 140/58 Outcomes/Goals: Able to verbalize/achieve optimal blood pressure <130/80, Incorporates diet changes & exercise for blood pressure control by DC Interventions/plan: Instruct on optimal blood pressure, hypertension & medications, Instruct on effects of sodium, alcohol, stress, exercise &hypertension 30 day Reassessments:: Progressing - Tobacco Cessation Referral Smoking Cessation Referral:: No Individual Education/Counseling:: No Education Schedule Given:: Yes - [employer] system online Medical- 90-Day Assessment Medical - Final Assessment Psychosocial - Initial Assess Psychosocial - 30-Day Assess Psychosocial - 60-Day Assess - VIsit Date of Eval: 08/07/21 Session #:: 24 Not Applicable: Yes History of previous Mental disease:: No - Psychosocial Test Tool Used:: PHQ-9 Questionnaire phq-9 Severity: Severity. 1-4 Minimal Depression. 5-9 Mild Depression. 10-14 Moderate Depression. 15-19 Moderately Sever Depression. 20-27 Severe Depression. Rule: - Referral to Behavioral Health PS - Interventions: Yes Attend Stress Management Classes, No Referral to Behavioral Health if PHQ-9 score >9:, No Referral to [facility], No Referral to Physician if PHQ-9 if score is 5-9: - Outcomes/Goals: See list Psychosocial Outcomes/Goals:: ID's personal stressors & 2 strategies to manage stress by discharge - Intervention/Plan: See List Interventions/Plan:: Assess stressors,coping strategies & signs of derpression on admission, Instruct/assist pt to develop coping & personal stress Mgt strategies, Instruct patient to recognize signs & symptoms of depression, Instruct patient to recog - 30-day Reassessments: 30 day Reassessments:: Progressing Psychosocial - 90-Day Assess Psychosocial - Final Assessmen Patient Health Questionnaire 60-Day Re-eval Assessment 1. Little interest or pleasure in doing things: Not at all 2. Feeling down, depressed, or hopeless: Not at all 3. Trouble falling or staying asleep, or sleeping too much: Several days 4. Feeling tired or having little energy: Several days 5. Poor appetite or overeating: Not at all 6. Feeling bad about yourself -- or that you are a failure or have let yourself or your family down: Not at all 7. Trouble concentrating on things, such as reading the newspaper or watching television: Not at all 8. Moving or speaking so slowly that other people could have noticed. Or the opposite - being so fidgety or restless that you have been moving around a lot more than usual: Not at all 9. Thoughts that you would be better off , or of hurting yourself in some way: Not at all How difficult have these problems made it for you to do your work, take care of things at home, or get along with other people?: Not difficult at all Total Score: 2 Self-Efficacy 60-Day Re-eval Assessment We would like to know how confident you are in doing certain activities. Please select your confidence level for:: Select your confidence level for the following using the scale 1-10 where 1 is not at all confident and 10 is totally confident. Your score is the average of all 6 responses. Fatigue: How confident are you that you can keep the fatigue caused by your disease from interfering with the things you want to do? Select Number: 5 Physical Discomfort or Pain: How confident are you that you can keep the physical discomfort or pain of your disease from interfering with the things you want to do? Select Number: 6 Emotional Distress: How confident are you that you can keep the emotional distress caused by your disease from interfering with the things you want to do? Select Number: 6 Other Symptoms or Health Problems: How confident are you that you can keep other symptoms or health problems from interfering with the things you want to do? Select Number: 7 Different Tasks and Activities: How confident are you that you can do the different tasks and activities needed to manage your health condition so as to reduce your need to see a doctor? Select Number: 9 Medication: How confident are you that you can do things other than just taking medication to reduce how much your illness affects your everyday life? Select Number: 10 Total Score:: 7 Nutrition Survey
[2021-08-07 05:38] VITALS: BP 128/58; BP 140/58; BMI 31.5
== END 2021-08-28 23:59 ==
LOC: CR 15:15
PROVIDERS: PCP Family Medicine
DX: I25.10 Atherosclerotic heart disease of native coronary artery without angina pectoris (principal)
CPT/HCPCS: 93798

== ENCOUNTER 2021-09-01 15:15 | Outpatient (RCR) | payer MEDICARE, SELFPAY ==
[2021-08-07 05:38] VITALS: BMI 31.5
[2021-08-29 00:30] VITALS: BP 128/58; BP 140/58; BMI 32.1
--- NOTE | 2021-09-05 07:48 | PCM.CR.ITP ---
Diagnosis Exercise - 90-day Assessment - Visit Date of Eval: 09/05/21 Session #:: 36 - Physician Prescribed Exercise Modalities: NuStep, SciFit Frequency: 3x/week for 12 weeks [36 sessions] Intensity: 60-80% of age predicted maximum heart rate reserve Current METSs:: 5 Target Heart Rate:: 89-119 Current RPE:: 13-14 Maximum Excercise HR:: 112 Resting Blood Pressure: 122/58 Maximum Exercise Blood Pressure: 144/72 EKG Type: SR to sinus tachy with rare pac and pvc - Outcomes & Goals Goals:: Verbalizes understanding of THR, RPE & goal METS by session 6, Documents in home exercise log/reports 30 min aerobic 5 day/wk by DC, Demonstrates accurate pulse taking by DC, Other additional outcome/goals: see below - Intervention & Plan Exercise Program Goals: Instruct on personal THR & RPE, Instruct on MET level & personal MET goal, Show patient to take own pulse /validate performance until accurate, Instruct on home exercise, Other additional plan/int - 30-day Reassessments 30 day Reassessments:: Met - Physical Activity Home Exercise Physical Activity - Home Exercise: Safe Exercise, Warm-up, Self-monitoring, Cool-Down, Home Exercise > 30 min Daily, Sitting Time <3 hours/daily - Outcomes & Goals Outcomes/Goals: Demonstrates correct Warm-up/exercise Cool-Down (S3) if = 2.5 METs, Verbalizes symptoms of exercise intolerance by Session 3 (S3), Demonstrate safe equipment use (S3) & follows exercise prescrition (6), Other: See below - Intervention & Plan Plan/Intervention: Instruct warm-up & cool-down if exercising at > 2 METs, Instruct on symptoms of exercise intolerance & actions to take, Instruct & monitor on saf, Assess intial functional capacity & safety risk, Other See below - 30-day Reassessments 30 day Reassessments:: Met Nutrition - Initial Assessment Nutrition - 30-Day Assessment Nutrition - 60-Day Assessment Nutrition - 90-Day Assessment - Program Goals Nutrition Program Goals: LDL <100 optimal. 100 - 129 Near optimal. 130 - 159 Borderline High. 160 - 189 High. Total Cholesterol <200 desirable. 200 - 239 Borderline High. >/= 240 High. HDL < 40 Low >/=60 High. Triglycerides <150 desirable. <199 optimal. VlDL 5 - 40. HgbA1C <7%. BMI <25 Patient has diagnosis of Hyperlipidemia (ICD E78)?: Yes - Visit Date of Assessment:: 09/05/21 Session #:: 36 - Cholesterol/Lipids Determine presence & major risk factors that modify LDL goal: Cigarette smoking, Hypertension or hypertensive medication, Low HDL cholesterol <40 mg/dL*, Family history of premature CHD in Male < 55 years: female <65 yearsFa, Age men > 45 years; women >/= 55 years Outcomes/Goals: Pt IDs own risk factors & lifestyle modifications by Session 10, Verbalizes symptoms of angina & response by session 3., Pt independently manages, Other Additional Outcomes/Goals: Intervention/Plan: Advocate for lipid panel cholesterol medication if applicable, Instruct on personal lipid levels & lipid goals/NCEP guidelines, Instruct on cholesterol, Other additional plan/int Referral to dietitian:: No - met 07/14/21 30-day Reassessments:: Met - Diabetes (Other Core Measures) Diabetes Type: Diagnosis Type II ICD-10 E11 Fasting blood glucose:: 141 Insulin dependent injection/pump?: Yes Non-Insulin Dependent?: Yes Do you monitor your blood sugar at home?: Yes Referral to Diabetic Clinic:: No - met 07/14/21 Outcomes/Goals:: Able to state symptoms of, Able to state, Able to state, Other additional Intervention/Plan:: Instruct on, Refer to, Instruct on, Other 30-day Reassessments:: Met - Weight Mgt (Other Care) Height: 5 ft 5 in Weight:: 84.595 kg BMI: 31.0 Diagnosis Overweight/Obesity BMI> 30% ICD-10 E66: Yes Diagnosis High BMI/Morbid Obesity BMI> 35% ICD-10 Z68: No Outcomes/Goals: Pt sets, maintains & shows weight loss goal & trend during rehab, Other additional outcomes/goals Intervention/Plan: Instruct on ideal BMI & set weight loss goal w/patient, Assist pt to ID & incorporate diet changes for weight loss by S9, Refer to Structured Weight Loss program as appropriate, Encourage goal of using 250-300dcal per session for weight loss, Other additional plan/interventions 30 day Reassessments:: Met - Healthy Eating Habits Will attend diet classes:: Yes Outcomes/Goals:: Consume diet rich in vegs,fruits,whole grain/high fiber,fish,lean meat, Limit sat/trans fats,cholesterol & added salts & sugars, Other additional outcome/goals: Intervention/Plan:: Assess current eating habits, Other Additional plan/interventions 30-day Reassessments:: Met - Education Gave educational materials for:: Signs & symptoms of hypoglycemia, Signs & symptoms of hyperglycemia, Relate diabetes to coronary artery disease, Healthy eating Nutrition - Final Assessment Medical - Initial Assessment Medical- 30-Day Assessment Medical- 60-Day Assessment Medical- 90-Day Assessment - Visit Date of Eval: 09/05/21 Session #:: 36 - Medication Compliance Preventative Medication(s):: Aspirin, Ticagrelor/P2Y12 inhibitor, Statin/lipid, Beta laurel H/O mental health issues: depression, anxiety, or addiction?: No Doesn?t believe in the benefits of treatment?: No Believes medications are unnecessary or harmful?: No Has a concern about medication side effects?: No Expresses concern over the cost of medications?: No Outcomes/Goals: Verbalizes medications,desired effect & common side effects @ DC, Pt self-reports following medication regimen, Keeps card in wallet w/medications listed by DC, Other additional outcome/goals: Interventions/plans: Instruct on medication effects & side effects, Review medication list w/patient every two weeks, Instruct importance of taking meds as ordered & assist problem solving, Other additional 30-day Reassessments:: Met - Tobacco Use Tobacco Use: Non-smoker 30-day Reassessments:: Met - Hypertension Hypertension Diagnosis:: Hypertension ICD-10 I10 Resting Blood Pressure:: 122/58 [place] [employer] Hypertension Guidelines: [place] [employer] Hypertension Guidelines. Normal BP Less than 120/80. Elevated BP 120/80. Hypertension Stage 1: BP 130-139/80-89. Hypertesnion Stage 2: BP 140 or higher/90 or higher. Hypertension Crisis: BP higher than 180/120 Peak Exercise Blood Pressure:: 144/72 Outcomes/Goals: Able to verbalize/achieve optimal blood pressure <130/80, Incorporates diet changes & exercise for blood pressure control by DC, Other additional outcomes/goals Interventions/plan: Instruct on optimal blood pressure, hypertension & medications, Instruct on effects of sodium, alcohol, stress, exercise &hypertension, Other additional plan/interventions 30 day Reassessments:: Met - Tobacco Cessation Referral Smoking Cessation Referral:: No Individual Education/Counseling:: No Education Schedule Given:: Yes Medical - Final Assessment Psychosocial - Initial Assess Psychosocial - 30-Day Assess Psychosocial - 60-Day Assess Psychosocial - 90-Day Assess - VIsit Date of Eval: 09/05/21 Session #:: 36 History of previous Mental disease:: No - Outcomes/Goals: See list Psychosocial Outcomes/Goals:: ID's personal stressors & 2 strategies to manage stress by discharge, Other Additional outcome/goals: - Intervention/Plan: See List Interventions/Plan:: Assess stressors,coping strategies & signs of derpression on admission, Instruct/assist pt to develop coping & personal stress Mgt strategies, Refer to Behavioral Health if appropriate, Refer to Physician if appropriate, Instruct patient to recognize signs & symptoms of depression, Instruct patient to recog, Other additional plan/intervention - 30-day Reassessments: 30 day Reassessments:: Met Psychosocial - Final Assessmen Patient Health Questionnaire 90-Day Re-eval Assessment 1. Little interest or pleasure in doing things: Not at all 2. Feeling down, depressed, or hopeless: Not at all 3. Trouble falling or staying asleep, or sleeping too much: Several days 4. Feeling tired or having little energy: Several days 5. Poor appetite or overeating: Not at all 6. Feeling bad about yourself -- or that you are a failure or have let yourself or your family down: Not at all 7. Trouble concentrating on things, such as reading the newspaper or watching television: Not at all 8. Moving or speaking so slowly that other people could have noticed. Or the opposite - being so fidgety or restless that you have been moving around a lot more than usual: Not at all 9. Thoughts that you would be better off , or of hurting yourself in some way: Not at all How difficult have these problems made it for you to do your work, take care of things at home, or get along with other people?: Not difficult at all Total Score: 2 Self-Efficacy 90-Day Re-eval Assessment We would like to know how confident you are in doing certain activities. Please select your confidence level for:: Select your confidence level for the following using the scale 1-10 where 1 is not at all confident and 10 is totally confident. Your score is the average of all 6 responses. Fatigue: How confident are you that you can keep the fatigue caused by your disease from interfering with the things you want to do? Select Number: 5 Physical Discomfort or Pain: How confident are you that you can keep the physical discomfort or pain of your disease from interfering with the things you want to do? Select Number: 6 Emotional Distress: How confident are you that you can keep the emotional distress caused by your disease from interfering with the things you want to do? Select Number: 6 Other Symptoms or Health Problems: How confident are you that you can keep other symptoms or health problems from interfering with the things you want to do? Select Number: 7 Different Tasks and Activities: How confident are you that you can do the different tasks and activities needed to manage your health condition so as to reduce your need to see a doctor? Select Number: 8 Medication: How confident are you that you can do things other than just taking medication to reduce how much your illness affects your everyday life? Select Number: 9 Total Score:: 6 Nutrition Survey
[2021-09-05 07:59] VITALS: BP 122/58; BP 144/72; BMI 31.0
== END 2021-09-28 23:59 ==
LOC: CR 15:15
PROVIDERS: PCP Family Medicine
DX: I25.10 Atherosclerotic heart disease of native coronary artery without angina pectoris (principal)
CPT/HCPCS: 93798

== ENCOUNTER 2021-09-01 16:19 | Outpatient (RCR) | payer MEDICARE, SELFPAY ==
[2021-08-07 05:38] VITALS: BMI 31.5
[2021-08-29 00:12] VITALS: BMI 32.1
== END 2021-09-01 23:59 | disposition home or self-care (01) ==
LOC: DC 16:19
PROVIDERS: PCP Family Medicine
DX: E11.9 Type 2 diabetes mellitus without complications (principal); I25.10 Atherosclerotic heart disease of native coronary artery without angina pectoris; I50.9 Heart failure, unspecified
CPT/HCPCS: 93798; 97803

== ENCOUNTER → 2021-11-10 16:15 | Outpatient (CLI) | payer MEDICARE, SELFPAY ==
[2021-11-10 18:28] LABS: Hemoglobin A1c 7.7 % (3.8-5.6)
[2021-11-10 18:39] LABS: AST(SGOT) 13 U/L (15-37); Alanine Aminotransfer ALT/SGPT 23 U/L (13-56); Albumin, Serum 3.7 g/dL (3.2-5.0); Alkaline Phosphatase 44 U/L (45-117); Anion Gap 8 (5-15); BUN 22 mg/dL (7-18); BUN/Creat Ratio 27.1 RATIO (10-20); Bilirubin, Direct 0.17 mg/dL (0.00-0.30); Calcium,Total 9.4 mg/dL (8.5-10.1); Chloride 107 mmol/L (98-107); Cholesterol 124 mg/dL (200); Creatinine, Serum 0.81 mg/dL (0.55-1.02); EST Glomerular Filtration Rate 74 mL/min (>60); Est Glom Filt Rate - Afr Amer 89 mL/min (>60); Globulin 3.6 g/dL (2.2-4.2); Glucose 107 mg/dL (74-106); High Density Lipoprotein 37 mg/dL; Protein, Total 7.3 g/dL (6.4-8.2); Sodium Level 140 mmol/L (136-145); Triglycerides 136 mg/dL; Very Low Density Lipoprotein 27 mg/dL (5-40)
== END ==
LOC: MFPLAB 16:17
PROVIDERS: PCP Family Medicine; Visit Provider Family Medicine
DX: E11.9 Type 2 diabetes mellitus without complications (principal)
CPT/HCPCS: 36415; 80048; 80061; 80076; 83036

== ENCOUNTER 2022-09-15 10:45 | Outpatient (RCR) | payer MEDICARE, SELFPAY ==
[2022-09-01 09:57] VITALS: TEMP 36.1; BMI 29.7
--- NOTE | 2022-09-01 22:30 | PCM.WC.HP ---
History of Present Illness Date of Service: 09/01/22 Chief Complaint: Right-sided abdominal wound History of Wound: This is a 71-year-old female who presents with an ulceration on the right abdomen which has been present for approximately 6 weeks. It occurred spontaneously, initially has a blister, which subsequently unroofed, resulting in the presence of an ulceration. Patient has been applying Silvadene cream 1% topically on a daily basis, as prescribed by her primary care physician. The patient is diabetic, and self injects insulin, although the ulcer is not the site of a recent injection. The patient's abdomen is slightly protuberant, though she is not considered obese. [facility] Medical History Anemia Arthritis Cancer Diabetes History of back problems History of ovarian cancer History of respiratory failure Irregular heart beat Scalp cyst Sebaceous cyst Smoker Ulcer of abdomen wall Home Medications carvedilol 6.25 mg tablet 6.25 mg PO BID blood pressure 02/10/19 [History Last Taken Unknown] glimepiride 4 mg tablet 4 mg PO DAILY 02/10/19 [History Last Taken Unknown] insulin glargine 100 unit/mL subcutaneous solution 50 unit SQ DAILY diabetes 02/10/19 [History Last Taken Unknown] magnesium 200 mg tablet 400 mg PO DAILY supplement 02/10/19 [History Last Taken Unknown] metformin 1,000 mg tablet 1,000 mg PO BID diabetes 02/10/19 [History Last Taken Unknown] quinapril 10 mg tablet 10 mg PO DAILY bp 02/10/19 [History Last Taken Unknown] cholecalciferol (vitamin D3) 10 mcg (400 unit) tablet (Vitamin D3) 1,000 unit PO DAILY supplement 01/18/20 [History Last Taken Unknown] insulin aspart U-100 100 unit/mL (3 mL) subcutaneous pen (Novolog Flexpen U-100 Insulin aspart) 20 unit subcut BID diabetes 04/04/21 [History Last Taken Unknown] Lantus U-100 Insulin 06/10/21 [History Last Taken Unknown] aspirin 81 mg tablet 81 mg PO DAILY 06/10/21 [History Last Taken Unknown] carvedilol 12.5 mg tablet (Coreg) 12.5 mg PO BID 06/10/21 [History Last Taken Unknown] empagliflozin 10 mg tablet (Jardiance) 10 mg PO DAILY 06/10/21 [History Last Taken Unknown] insulin aspart U-100 100 unit/mL subcutaneous solution (Novolog U-100 Insulin aspart) 06/10/21 [History Last Taken Unknown] mag gv-zypirlu-dzzsatdna-e-bilber 300 mg-600 mg-100 mg/15 mL oral susp 400 PO 06/10/21 [History Last Taken Unknown] nitroglycerin 0.4 mg sublingual tablet (Nitrostat) 0.4 mg sublingual Q5M PRN Chest Pain 06/10/21 [History Last Taken Unknown] pantoprazole 40 mg tablet,delayed release (Protonix) 40 mg PO DAILY 06/10/21 [History Last Taken Unknown] rosuvastatin 40 mg tablet (Crestor) 40 mg PO DAILY 06/10/21 [History Last Taken Unknown] spironolactone 25 mg tablet (Aldactone) 25 mg PO DAILY 06/10/21 [History Last Taken Unknown] ticagrelor 90 mg tablet (Brilinta) 90 mg PO BID 06/10/21 [History Last Taken Unknown] Allergy/AdvReac Type Severity Reaction Status Date / Time acetaminophen [From Percocet] AdvReac Vomiting Verified 04/03/21 22:52 cefuroxime AdvReac Other Verified 04/03/21 22:52 oxycodone [From Percocet] AdvReac Vomiting Verified 04/03/21 22:52 tetracycline AdvReac Itching Verified 04/03/21 22:52 Family History Mother Arthritis Cancer lung cancer Osteoporosis Brother Diabetes Surgical History History of appendectomy History of back surgery History of back surgery History of bilateral salpingo-oophorectomy History of cataract surgery History of heart artery stent History of left heart catheterization (04/04/21) History of total hysterectomy History of umbilical hernia repair History of ventral hernia repair History of ventral hernia repair Social History Smoking Status: Former smoker alcohol intake: never substance use type: does not use Vital Signs Vital Signs Vital Signs: 09/01/22 09:57 Temperature 96.9 F L Temperature Source Temporal Weight Weight: 179 lb Body Mass Index (BMI) 29.7 Physical Exam Const alert, oriented x3, no apparent distress and well nourished General Appearance: cooperative, comfortable, well kempt and well developed Orientation / Consciousness: awake, oriented to person, oriented to place and oriented to time Exam Limitations: no limitations HEENT normocephalic, head/scalp atraumatic and hearing grossly normal bilaterally Head and Scalp: normal to inspection, normocephalic and atraumatic External Ear: external ears normal Eyes PERRL and EOMs intact bilaterally General Eye: normal appearance of both eyes Resp normal respiratory effort, normal air movement, no retractions and no use of accessory muscles Effort and Inspection: able to speak in complete sentences Extremity no calf tenderness General Extremity: Negative for clubbing or cyanosis Skin Wound Narrative: The ulceration is noted on the right abdominal wall. It extends through all layers of the dermis. There is a large amount of nonviable and necrotic tissue present. There is no sign of infection or cellulitis. Dimensions are documented elsewhere. Neuro oriented x3, CN's II-XII intact bilaterally and moves all extremities Sensorium / Orientation: awake, alert, oriented to person, oriented to place and oriented to time Psych Appearance: grossly normal and appropriate Attitude: calm Activity / Motor Behavior: appropriate eye contact Speech: normal speech Mood & Affect: euthymic mood Thought Process: normal thought process Thought Content: normal thought content Attention / Concentration: attention grossly intact Debridement Note Debridement Note Wound debrided: Abdominal wall ulceration Laterality: Right Type of Debridement: Excisional debridement Anesthesia Used: 5% Lidocaine Gel Depth: Down to and including healthy tissue and in the subcutaneous layer Percentage of wound debrided: 100 Instrument Used: 5mm curette, #15 blade, Forceps and - (Scissors) Tissue Removed: Bioburden and frankly necrotic, nonviable tissue Severity: Fat Layer Exposed Amount of bleeding with debridement: Mild Bleeding Controlled with: Compression and gauze Patient tolerated procedure: Patient tolerated procedure well Post-Debridement Measurements and Additional Note: Post-Debridement Measurements/Treatment WC - Nurse 1 - General Ulcer Assessment Start: 09/01/22 09:57 Freq: Status: Active Protocol: NING Activity Type Activity Date Activity User E-sign Co-sign Detail Recorded Client Recorded Date Recorded By Document 09/01/22 09:57 JASON [id number] 09/01/22 10:09 JASON 09/01/22 09:57 WC - Today's Visit Information Type of service Initial Visit Arrival Mode Ambulatory Patient Identification Verified (Name & Yes ) Patient Requires Transmission-Based No Precautions Safety Precautions NA Height and Weight Height 5 ft 5 in Weight 179 lb Weight in Pounds 179.0 lbs Body Mass Index (BMI) 29.7 BMI Classification Overweight BSA - Mei 1.89 Vital Signs Temperature (97.8 F-99.1 F) 96.9 F L Temperature Source Temporal History Since Last Visit- (Skip if this is Patient's initial visit) Left Footwear Regular Shoe Right Footwear Regular Shoe Pain Scale: 0-10 Numeric Is Patient Pain Free? Yes - Nurse 1 - General Ulcer Measurement Start: 09/01/22 09:57 Freq: Status: Active Protocol: Activity Type Activity Date Activity User E-sign Co-sign Detail Recorded Client Recorded Date Recorded By Document 09/01/22 09:57 JASON [id number] 09/01/22 10:09 JASON 09/01/22 09:57 Wound Center Nurse 1 #1 ABD -Combined with other wound No -Current Size (cm) - Length 1.6 -Current Size (cm) - Width 2.6 -Current Size (cm) - Depth 0.1 -Total Square Cm 4.16 -Date of Last Picture (Recall this 09/01/22 field) -Photo Taken Yes -Tunneling No -Undermining/Tunneling No -Circular Undermining No -Change in Wound Grade/Stage No -Exudate Amt Large -Exudate Type Yellow/Green -Wound Margin Distinct, Outline Attached -Granulation Amt None Present (0 %) -Granulation Quality N/A -Slough/Fibrin Yes -Necrosis Amt Large (67-100%) -Necrotic Tissue Type Adherent Slough -Structure Exposed N/A -Texture (Catrina-wound Skin Appearance) No Abnormality, Assessed -Moisture (Catrina-wound Skin Appearance) No Abnormality, Assessed -Color (Catrina-wound Skin Appearance) No Abnormality, Assessed -Temperature (Catrina-wound Skin No Abnormality Appearance) (Pt Warm) -Tenderness on Palpation (Catrina-wound No Skin Appearance) -Ulcer Cleansing Soap and Water -Foul Odor after Cleansing No -Anesthetic Used 5% Lidocaine Gel - Nurse 2 - General Ulcer CM Notes Start: 09/01/22 09:57 Freq: Status: Active Protocol: Activity Type Activity Date Activity User E-sign Co-sign Detail Recorded Client Recorded Date Recorded By Document 09/01/22 11:24 PL [id number] 09/01/22 11:25 PL 09/01/22 11:24 Wound Center Nurse 2 -Time 10:16 -Correct Patient Yes -Correct Side, Site, Position Yes -Correct Procedure Yes -Procedure Performed Yes -Type of Procedure Debridement -Clinical Debridement Subcutaneous -Tissue Removed Subcutaneous -Post Debridement (cm) - Length 1.6 -Post Debridement (cm) - Width 2.6 -Post Debridement (cm) - Depth 0.1 -Total Square (Post) (cm) 4.16 -Area of Debridement (cm) - Length 1.6 -Area of Debridement (cm) - Width 2.6 -Total Square (Area) (cm) 4.16 -Tunneling No -Undermining/Tunneling No -Circular Undermining No -Wound/Ulcer Outcome Not Healed -Ulcer Cleansing Rinsed/ Irrigated with Saline -Foul Odor after Cleansing No -Bioengineered Tissue No -Bleeding Controlled with Pressure -Treatment Response Procedure Tolerated Well -Debridement - Subq, 1st 20sq cm Yes Pain Scale: 0-10 Numeric Is Patient Pain Free? Yes WC - Nurse 3 - General Ulcer D/C NN Start: 09/01/22 09:57 Freq: Status: Active Protocol: Activity Type Activity Date Activity User E-sign Co-sign Detail Recorded Client Recorded Date Recorded By Document 09/01/22 10:37 AK [id number] 09/01/22 10:54 AK 09/01/22 10:37 Wound Care Nurse 3 #1 ABD -Ulcer Cleansing Rinsed/ Irrigated with Saline -Foul Odor after Cleansing No -Negative Pressure Wound Therapy N/A -Other Dressing hydrogel until pt picks up santyl -Primary Dressing Covered/Secured with Dry Gauze, Secured with Tape Pain Scale: 0-10 Numeric Is Patient Pain Free? Yes WC - Visit Discharge Discharge Condition Stable Ambulatory Status Ambulatory Transportation Private Auto Medication Reconcilliation completed & Yes provided to patient/care provider Clinical Summary of Care Provided Yes Assessment/Plan Assessment/Plan (1) Ulcer of abdomen wall: CODE(S): L98.499 - Non-pressure chronic ulcer of skin of other sites with unspecified severity QUALIFIERS: Non-pressure ulcer stage: with fat layer exposed Qualified Code(s): L98.492 - Non-pressure chronic ulcer of skin of other sites with fat layer exposed (2) Diabetes: CODE(S): E11.9 - Type 2 diabetes mellitus without complications QUALIFIERS: Diabetes mellitus complication status: without complication 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 Diabetes mellitus type: type 2 Qualified Code(s): E11.9 - Type 2 diabetes mellitus without complications; Z79.4 - long term care administrator (current) use of insulin (3) Atherosclerotic heart disease of lummi coronary artery without angina pectoris: CODE(S): I25.10 - Atherosclerotic heart disease of lummi coronary artery without angina pectoris (4) CHF (congestive heart failure): CODE(S): I50.9 - Heart failure, unspecified QUALIFIERS: Heart failure chronicity: acute Heart failure type: unspecified Qualified Code(s): I50.9 - Heart failure, unspecified (5) Adrenal adenoma: CODE(S): D35.00 - Benign neoplasm of unspecified adrenal gland QUALIFIERS: Laterality: right Qualified Code(s): D35.01 - Benign neoplasm of right adrenal gland (6) History of respiratory failure: CODE(S): Z87.09 - Personal history of other diseases of the respiratory system (7) History of umbilical hernia repair: CODE(S): Z98.890 - Other specified postprocedural states; Z87.19 - Personal history of other diseases of the digestive system (8) History of cataract surgery: CODE(S): Z98.49 - Cataract extraction status, unspecified eye (9) History of heart artery stent: CODE(S): Z95.5 - Presence of coronary angioplasty implant and graft (10) History of total hysterectomy: CODE(S): Z90.710 - Acquired absence of both cervix and uterus (11) History of back surgery: CODE(S): Z98.890 - Other specified postprocedural states PLAN: Plan This is a 71-year-old diabetic female who presents with an ulceration on the right abdominal wall. The ulceration began as a blister, for unknown reasons. The blister ultimately unroofed spontaneously, resulting in the presence of an ulceration, of approximately 6 weeks duration. At the time of presentation, a large amount of frankly necrotic and nonviable tissue is present. The predominance of the nonviable and necrotic tissue has been debrided. A small amount of nonviable tissue remains. We are to implement the use of collagenase Santyl, which will be applied by the patient on a daily basis. She has been provided a prescription for this medication. She has been counseled as to the appropriate means of application. Patient is to return in 1 week for reassessment. Glycemic optimization and nutritional optimization have been recommended. The patient underwent laboratory testing approximately 4 to 6 weeks ago at the [facility], and the results of that diagnostic testing will be requested. Total time: 65 minutes
[2022-09-08 10:55] VITALS: BP 129/31; PULSE 82; RESP 20; TEMP 36.2; BMI 29.7
--- NOTE | 2022-09-08 13:00 | HP.PCM_ITS ---
History of Present Illness Date of Service: 09/08/22 Chief Complaint: Right-sided abdominal wound History of Wound: This is a 71-year-old female who presented with an ulceration on the right abdomen which had been present for approximately 6 weeks. It occurred spontaneously, initially has a blister, which subsequently unroofed, resulting in the presence of an ulceration. Patient has been applying Silvadene cream 1% topically on a daily basis, as prescribed by her primary care physician. The patient is diabetic, and self injects insulin, although the ulcer is at not the site of a recent injection. The patient's abdomen is slightly protuberant, though she is not considered obese. [facility] Medical History Anemia Arthritis Cancer Diabetes History of back problems History of ovarian cancer History of respiratory failure Irregular heart beat Scalp cyst Sebaceous cyst Smoker Ulcer of abdomen wall Home Medications carvedilol 6.25 mg tablet 6.25 mg PO BID blood pressure 02/10/19 [History Last Taken Unknown] glimepiride 4 mg tablet 4 mg PO DAILY 02/10/19 [History Last Taken Unknown] insulin glargine 100 unit/mL subcutaneous solution 50 unit SQ DAILY diabetes 02/10/19 [History Last Taken Unknown] magnesium 200 mg tablet 400 mg PO DAILY supplement 02/10/19 [History Last Taken Unknown] metformin 1,000 mg tablet 1,000 mg PO BID diabetes 02/10/19 [History Last Taken Unknown] quinapril 10 mg tablet 10 mg PO DAILY bp 02/10/19 [History Last Taken Unknown] cholecalciferol (vitamin D3) 10 mcg (400 unit) tablet (Vitamin D3) 1,000 unit PO DAILY supplement 01/18/20 [History Last Taken Unknown] insulin aspart U-100 100 unit/mL (3 mL) subcutaneous pen (Novolog Flexpen U-100 Insulin aspart) 20 unit subcut BID diabetes 04/04/21 [History Last Taken U nknown] Lantus U-100 Insulin 06/10/21 [History Last Taken Unknown] aspirin 81 mg tablet 81 mg PO DAILY 06/10/21 [History Last Taken Unknown] carvedilol 12.5 mg tablet (Coreg) 12.5 mg PO BID 06/10/21 [History Last Taken Unknown] empagliflozin 10 mg tablet (Jardiance) 10 mg PO DAILY 06/10/21 [History Last Taken Unknown] insulin aspart U-100 100 unit/mL subcutaneous solution (Novolog U-100 Insulin a spart) 06/10/21 [History Last Taken Unknown] mag nf-ntfjudy-ftpqudxqr-e-bilber 300 mg-600 mg-100 mg/15 mL oral susp 400 PO 06/10/21 [History Last Taken Unknown] nitroglycerin 0.4 mg sublingual tablet (Nitrostat) 0.4 mg sublingual Q5M PRN Chest Pain 06/10/21 [History Last Taken Unknown] pantoprazole 40 mg tablet,delayed release (Protonix) 40 mg PO DAILY 06/10/21 [History Last Taken Unknown] rosuvastatin 40 mg tablet (Crestor) 40 mg PO DAILY 06/10/21 [History Last Taken Unknown] spironolactone 25 mg tablet (Aldactone) 25 mg PO DAILY 06/10/21 [History Last Taken Unknown] ticagrelor 90 mg tablet (Brilinta) 90 mg PO BID 06/10/21 [History Last Taken Unknown] Allergy/AdvReac Type Severity Reaction Status Date / Time acetaminophen [From Percocet] AdvReac Vomiting Verified 04/03/21 22:52 cefuroxime AdvReac Other Verified 04/03/21 22:52 oxycodone [From Percocet] AdvReac Vomiting Verified 04/03/21 22:52 tetracycline AdvReac Itching Verified 04/03/21 22:52 Family History Mother Arthritis Cancer lung cancer Osteoporosis Brother Diabetes Surgical History History of appendectomy History of back surgery History of back surgery History of bilateral salpingo-oophorectomy History of cataract surgery History of heart artery stent History of left heart catheterization (04/04/21) History of total hysterectomy History of umbilical hernia repair History of ventral hernia repair History of ventral hernia repair Social History Smoking Status: Former smoker alcohol intake: never substance use type: does not use Vital Signs Vital Signs Vital Signs: 09/08/22 10:55 Temperature 97.2 F L Temperature Source Temporal Pulse Rate 82 Respiratory Rate 20 H Blood Pressure 129/31 H Blood Pressure Mean 63 Blood Pressure Source Monitor Weight Weight: 179 lb Body Mass Index (BMI) 29.7 Physical Exam Const alert, oriented x3, no apparent distress and well nourished General Appearance: cooperative, comfortable, well kempt and well developed Orientation / Consciousness: awake, oriented to person, oriented to place and oriented to time Exam Limitations: no limitations HEENT normocephalic, head/scalp atraumatic and hearing grossly normal bilaterally Head and Scalp: normal to inspection, normocephalic and atraumatic External Ear: external ears normal Eyes PERRL and EOMs intact bilaterally General Eye: normal appearance of both eyes Resp normal respiratory effort, normal air movement, no retractions and no use of accessory muscles Effort and Inspection: able to speak in complete sentences Extremity no calf tenderness General Extremity: Negative for clubbing or cyanosis Skin Wound Narrative: An ulceration is noted on the right abdominal wall. It extends through all layers of the dermis. It has decreased in size within the last week. A small amount of nonviable and necrotic tissue persist. However, the amount of nonviable tissue has decreased significantly. There is no sign of infection or cellulitis. Dimensions are documented elsewhere. Neuro oriented x3, CN's II-XII intact bilaterally, moves all extremities and no focal motor deficits Sensorium / Orientation: awake, alert, oriented to person, oriented to place and oriented to time Psych Appearance: grossly normal and appropriate Attitude: calm Activity / Motor Behavior: appropriate eye contact Speech: normal speech Mood & Affect: euthymic mood Thought Process: normal thought process Thought Content: normal thought content Attention / Concentration: attention grossly intact Debridement Note Debridement Note Wound debrided: Abdominal wall ulceration Laterality: Right Type of Debridement: Excisional debridement Anesthesia Used: 5% Lidocaine Gel and Cetacaine Depth: Down to and including healthy tissue and in the subcutaneous layer Percentage of wound debrided: 100 Instrument Used: 5mm curette, #15 blade, Forceps and - (Scissors) Tissue Removed: Bioburden and frankly necrotic, nonviable tissue Severity: Fat Layer Exposed Amount of bleeding with debridement: Mild Bleeding Controlled with: Compression and gauze Patient tolerated procedure: Patient tolerated procedure well Post-Debridement Measurements and Additional Note: Post-Debridement Measurements/Treatment WC - Nurse 1 - General Ulcer Assessment Start: 09/01/22 09:57 Freq: Status: Active Protocol: NING Activity Type Activity Date Activity User E-sign Co-sign Detail Recorded Client Recorded Date Recorded By Document 09/01/22 09:57 AK [id number] 09/01/22 10:09 AK Document 09/08/22 10:55 DL [id number] 09/08/22 10:58 DL 09/01/22 09/08/22 09:57 10:55 - Today's Visit Information Type of service Initial Visit 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 ) Arrival Mode Ambulatory Ambulatory Transfer Assistance None Patient Identification Verified (Name & Yes Yes ) Patient Requires Transmission-Based No No Precautions Safety Precautions NA Finger Stick Blood Sugar(mg/dl) (if 120 indicated): Blood Sugar Stated by Patient Height and Weight Height 5 ft 5 in Weight 179 lb Weight in Pounds 179.0 lbs Body Mass Index (BMI) 29.7 29.7 BMI Classification Overweight Overweight BSA - Mei 1.89 Vital Signs Temperature (97.8 F-99.1 F) 96.9 F L 97.2 F L Temperature Source Temporal Temporal Pulse Rate (60-100) 82 Pulse Location Monitor Respiratory Rate (12-18) 20 H Respiratory rate source Observation Blood Pressure (90/60-120/80) 129/31 H Blood Pressure Mean 63 Source Monitor History Since Last Visit- (Skip if this is Patient's initial visit) Have you changed medications since your No last visit? Any new allergies or adverse reactions No Had a fall/change in ADL's that may No increase risk of falls Signs or symptoms of abuse and/or No neglect since last visit Have you been in the hospital since your No last visit? Has dressing in place as prescribed Yes Has compression in place as prescribed N/A Has offloadiing in place as prescribed N/A Experienced any changes in pain level or No management Left Footwear Regular Shoe Right Footwear Regular Shoe Pain Scale: 0-10 Numeric Is Patient Pain Free? Yes Yes - Nurse 1 - General Ulcer Measurement Start: 09/01/22 09:57 Freq: Status: Active Protocol: Activity Type Activity Date Activity User E-sign Co-sign Detail Recorded Client Recorded Date Recorded By Document 09/01/22 09:57 IN [id number] 09/01/22 10:09 AK Document 09/08/22 10:55 DL [id number] 09/08/22 10:58 DL 09/01/22 09/08/22 09:57 10:55 Wound Center Nurse 1 #1 ABD -Combined with other wound No -Current Size (cm) - Length 1.6 1.5 -Current Size (cm) - Width 2.6 2 -Current Size (cm) - Depth 0.1 0.1 -Total Square Cm 4.16 3.0 -Date of Last Picture (Recall this 09/01/22 field) -Photo Taken Yes Yes -Tunneling No -Undermining/Tunneling No -Circular Undermining No -Change in Wound Grade/Stage No -Exudate Amt Large Small -Exudate Type Yellow/Green Serosanguineous -Wound Margin Distinct, Distinct, Outline Outline Attached Attached -Granulation Amt None Present (0 None Present (0 %) %) -Granulation Quality N/A -Slough/Fibrin Yes -Necrosis Amt Large (67-100%) Large (67-100%) -Necrotic Tissue Type Adherent Slough Adherent Slough -Structure Exposed N/A N/A -Texture (Catrina-wound Skin Appearance) No Abnormality, Scarring Assessed -Moisture (Catrina-wound Skin Appearance) No Abnormality, No Abnormality Assessed -Color (Catrina-wound Skin Appearance) No Abnormality, Erythema Assessed -Temperature (Catrina-wound Skin No Abnormality No Abnormality Appearance) (Pt Warm) (Pt Warm) -Tenderness on Palpation (Catrina-wound No Yes Skin Appearance) -Ulcer Cleansing Soap and Water Rinsed/ Irrigated with Saline -Foul Odor after Cleansing No No -Anesthetic Used 5% Lidocaine 5% Lidocaine Gel Gel WC - Nurse 2 - General Ulcer CM Notes Start: 09/01/22 09:57 Freq: Status: Active Protocol: Activity Type Activity Date Activity User E-sign Co-sign Detail Recorded Client Recorded Date Recorded By Document 09/01/22 11:24 PL [id number] 09/01/22 11:25 PL Document 09/08/22 12:16 PL [id number] 09/08/22 12:17 PL 09/01/22 09/08/22 11:24 12:16 Wound Center Nurse 2 #1 ABD -Time 10:16 11:03 -Correct Patient Yes Yes -Correct Side, Site, Position Yes Yes -Correct Procedure Yes Yes -Procedure Performed Yes Yes -Type of Procedure Debridement Debridement -Clinical Debridement Subcutaneous Subcutaneous -Tissue Removed Subcutaneous Subcutaneous -Post Debridement (cm) - Length 1.6 1.5 -Post Debridement (cm) - Width 2.6 2.0 -Post Debridement (cm) - Depth 0.1 0.1 -Total Square (Post) (cm) 4.16 3.00 -Area of Debridement (cm) - Length 1.6 1.5 -Area of Debridement (cm) - Width 2.6 2.0 -Total Square (Area) (cm) 4.16 3.00 -Tunneling No No -Undermining/Tunneling No No -Circular Undermining No No -Wound/Ulcer Outcome Not Healed Not Healed -Ulcer Cleansing Rinsed/ Rinsed/ Irrigated with Irrigated with Saline Saline -Foul Odor after Cleansing No No -Bioengineered Tissue No No -Bleeding Controlled with Pressure Pressure -Treatment Response Procedure Procedure Tolerated Well Tolerated Well -Debridement - Subq, 1st 20sq cm Yes Yes Pain Scale: 0-10 Numeric Is Patient Pain Free? Yes Yes - Nurse 3 - General Ulcer D/C NN Start: 09/01/22 09:57 Freq: Status: Active Protocol: Activity Type Activity Date Activity User E-sign Co-sign Detail Recorded Client Recorded Date Recorded By Document 09/01/22 10:37 JASON [id number] 09/01/22 10:54 JASON 09/01/22 10:37 Wound Care Nurse 3 #1 ABD -Ulcer Cleansing Rinsed/ Irrigated with Saline -Foul Odor after Cleansing No -Negative Pressure Wound Therapy N/A -Other Dressing hydrogel until pt picks up santyl -Primary Dressing Covered/Secured with Dry Gauze, Secured with Tape Pain Scale: 0-10 Numeric Is Patient Pain Free? Yes WC - Visit Discharge Discharge Condition Stable Ambulatory Status Ambulatory Transportation Private Auto Medication Reconcilliation completed & Yes provided to patient/care provider Clinical Summary of Care Provided Yes Assessment/Plan Assessment/Plan (1) Ulcer of abdomen wall: CODE(S): L98.499 - Non-pressure chronic ulcer of skin of other sites with unspecified severity QUALIFIERS: Non-pressure ulcer stage: with fat layer exposed Qualified Code(s): L98.492 - Non-pressure chronic ulcer of skin of other sites with fat layer exposed (2) Diabetes: CODE(S): E11.9 - Type 2 diabetes mellitus without complications QUALIFIERS: Diabetes mellitus type: type 2 Diabetes mellitus care home insulin use: with district associate judge use Diabetes mellitus complication status: without complication Qualified Code(s): E11.9 - Type 2 diabetes mellitus without complications; Z79.4 - molecular genetic pathologist (current) use of insulin (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: CODE(S): I25.10 - Atherosclerotic heart disease of [place] coronary artery without angina pectoris (4) CHF (congestive heart failure): CODE(S): I50.9 - Heart failure, unspecified QUALIFIERS: Heart failure type: unspecified Heart failure chronicity: acute Qualified Code(s): I50.9 - Heart failure, unspecified (5) Adrenal adenoma: CODE(S): D35.00 - Benign neoplasm of unspecified adrenal gland QUALIFIERS: Laterality: right Qualified Code(s): D35.01 - Benign neoplasm of right adrenal gland (6) History of respiratory failure: CODE(S): Z87.09 - Personal history of other diseases of the respiratory system (7) History of umbilical hernia repair: CODE(S): Z98.890 - Other specified postprocedural states; Z87.19 - Persona l history of other diseases of the digestive system (8) History of cataract surgery: CODE(S): Z98.49 - Cataract extraction status, unspecified eye (9) History of heart artery stent: CODE(S): Z95.5 - Presence of coronary angioplasty implant and graft (10) History of total hysterectomy: CODE(S): Z90.710 - Acquired absence of both cervix and uterus (11) History of back surgery: CODE(S): Z98.890 - Other specified postprocedural states PLAN: Plan This is a 71-year-old diabetic female who presented with an ulceration on the right abdominal wall. The ulceration began as a blister, for unknown reasons. The blister ultimately unroofed spontaneously, resulting in the presence of an ulceration, of approximately 6 weeks duration. At the time of presentation, a large amount of frankly necrotic and nonviable tissue was present. The predominance of the nonviable and necrotic tissue has been debrided. A small amount of nonviable tissue remains. We are to continue the use of collagenase Santyl, which will be applied by the patient on a daily basis. She has been provided a prescription for this medication. She has been counseled as to the appropriate means of application. The patient is to return in 1 week for reassessment. Glycemic optimization and nutritional optimization have been recommended. The patient underwent laboratory testing approximately 4 to 6 weeks ago at the [facility], and the results of that diagnostic testing has been requested. Total time: 28 minutes
[2022-09-15 10:33] VITALS: BP 124/74; PULSE 81; RESP 18; TEMP 36.3; BMI 29.7
--- NOTE | 2022-09-15 12:02 | PCM.WC.HP ---
History of Present Illness Date of Service: 09/15/22 Chief Complaint: Right-sided abdominal wound History of Wound: This is a 71-year-old female who presented with an ulceration on the right abdomen which had been present for approximately 6 weeks. It occurred spontaneously, initially as a blister, which subsequently unroofed, resulting in the presence of an ulceration. The patient has been applying Silvadene cream 1% topically on a daily basis, as prescribed by her primary care physician. The patient is diabetic, and self injects insulin, although the ulcer is at not the site of a recent injection. The patient's abdomen is slightly protuberant, though she is not considered obese. [facility] Medical History Anemia Arthritis Cancer Diabetes History of back problems History of ovarian cancer History of respiratory failure Irregular heart beat Scalp cyst Sebaceous cyst Smoker Ulcer of abdomen wall Home Medications carvedilol 6.25 mg tablet 6.25 mg PO BID blood pressure 02/10/19 [History Last Taken Unknown] glimepiride 4 mg tablet 4 mg PO DAILY 02/10/19 [History Last Taken Unknown] insulin glargine 100 unit/mL subcutaneous solution 50 unit SQ DAILY diabetes 02/10/19 [History Last Taken Unknown] magnesium 200 mg tablet 400 mg PO DAILY supplement 02/10/19 [History Last Taken Unknown] metformin 1,000 mg tablet 1,000 mg PO BID diabetes 02/10/19 [History Last Taken Unknown] quinapril 10 mg tablet 10 mg PO DAILY bp 02/10/19 [History Last Taken Unknown] cholecalciferol (vitamin D3) 10 mcg (400 unit) tablet (Vitamin D3) 1,000 unit PO DAILY supplement 01/18/20 [History Last Taken Unknown] insulin aspart U-100 100 unit/mL (3 mL) subcutaneous pen (Novolog Flexpen U-100 Insulin aspart) 20 unit subcut BID diabetes 04/04/21 [History Last Taken Unknown] Lantus U-100 Insulin 06/10/21 [History Last Taken Unknown] aspirin 81 mg tablet 81 mg PO DAILY 06/10/21 [History Last Taken Unknown] carvedilol 12.5 mg tablet (Coreg) 12.5 mg PO BID 06/10/21 [History Last Taken Unknown] empagliflozin 10 mg tablet (Jardiance) 10 mg PO DAILY 06/10/21 [History Last Taken Unknown] insulin aspart U-100 100 unit/mL subcutaneous solution (Novolog U-100 Insulin aspart) 06/10/21 [History Last Taken Unknown] mag ze-llbewbg-jwxtfqfhk-e-bilber 300 mg-600 mg-100 mg/15 mL oral susp 400 PO 06/10/21 [History Last Taken Unknown] nitroglycerin 0.4 mg sublingual tablet (Nitrostat) 0.4 mg sublingual Q5M PRN Chest Pain 06/10/21 [History Last Taken Unknown] pantoprazole 40 mg tablet,delayed release (Protonix) 40 mg PO DAILY 06/10/21 [History Last Taken Unknown] rosuvastatin 40 mg tablet (Crestor) 40 mg PO DAILY 06/10/21 [History Last Taken Unknown] spironolactone 25 mg tablet (Aldactone) 25 mg PO DAILY 06/10/21 [History Last Taken Unknown] ticagrelor 90 mg tablet (Brilinta) 90 mg PO BID 06/10/21 [History Last Taken Unknown] Allergy/AdvReac Type Severity Reaction Status Date / Time acetaminophen [From Percocet] AdvReac Vomiting Verified 04/03/21 22:52 cefuroxime AdvReac Other Verified 04/03/21 22:52 oxycodone [From Percocet] AdvReac Vomiting Verified 04/03/21 22:52 tetracycline AdvReac Itching Verified 04/03/21 22:52 Family History Mother Arthritis Cancer lung cancer Osteoporosis Brother Diabetes Surgical History History of appendectomy History of back surgery History of back surgery History of bilateral salpingo-oophorectomy History of cataract surgery History of heart artery stent History of left heart catheterization (04/04/21) History of total hysterectomy History of umbilical hernia repair History of ventral hernia repair History of ventral hernia repair Social History Smoking Status: Former smoker alcohol intake: never substance use type: does not use Vital Signs Vital Signs Vital Signs: 09/15/22 10:33 Temperature 97.4 F L Temperature Source Temporal Pulse Rate 81 Respiratory Rate 18 Blood Pressure 124/74 H Blood Pressure Mean 90 Blood Pressure Source Monitor Weight Weight: 179 lb Body Mass Index (BMI) 29.7 Physical Exam Const alert, oriented x3, no apparent distress and well nourished General Appearance: cooperative, comfortable, well kempt and well developed Orientation / Consciousness: awake, oriented to person, oriented to place and oriented to time Exam Limitations: no limitations HEENT normocephalic, head/scalp atraumatic and hearing grossly normal bilaterally Head and Scalp: normal to inspection, normocephalic and atraumatic External Ear: external ears normal Eyes PERRL and EOMs intact bilaterally General Eye: normal appearance of both eyes Resp normal respiratory effort, normal air movement, no retractions and no use of accessory muscles Effort and Inspection: able to speak in complete sentences Extremity no calf tenderness General Extremity: Negative for clubbing or cyanosis Skin Wound Narrative: An ulceration is noted on the right abdominal wall. It extends through all layers of the dermis. It has decreased in size within the last week. A small amount of bioburden and nonviable tissue persist. However, the amount of nonviable tissue has decreased significantly. There is no sign of infection or cellulitis. Dimensions are documented elsewhere. Neuro oriented x3, CN's II-XII intact bilaterally, moves all extremities and no focal motor deficits Sensorium / Orientation: awake, alert, oriented to person, oriented to place and oriented to time Psych Appearance: grossly normal and appropriate Attitude: calm Activity / Motor Behavior: appropriate eye contact Speech: normal speech Mood & Affect: euthymic mood Thought Process: normal thought process Thought Content: normal thought content Attention / Concentration: attention grossly intact Debridement Note Debridement Note Wound debrided: Abdominal wall ulceration Laterality: Right Type of Debridement: Excisional debridement Anesthesia Used: 5% Lidocaine Gel and Cetacaine Depth: Down to and including healthy tissue and in the subcutaneous layer Percentage of wound debrided: 100 Instrument Used: 5mm curette Tissue Removed: Bioburden and frankly necrotic, nonviable tissue Severity: Fat Layer Exposed Amount of bleeding with debridement: Mild Bleeding Controlled with: Compression and gauze Patient tolerated procedure: Patient tolerated procedure well Post-Debridement Measurements and Additional Note: Post-Debridement Measurements/Treatment WOOD - Nurse 1 - General Ulcer Assessment Start: 09/01/22 09:57 Freq: Status: Active Protocol: NING Activity Type Activity Date Activity User E-sign Co-sign Detail Recorded Client Recorded Date Recorded By Document 09/01/22 09:57 AK [id number] 09/01/22 10:09 AK Document 09/08/22 10:55 DL [id number] 09/08/22 10:58 DL Document 09/15/22 10:33 DL [id number] 09/15/22 10:37 DL 09/01/22 09/08/22 09/15/22 09:57 10:55 10:33 - Today's Visit Information Type of service Initial Visit Follow-up Visit Follow-up Visit (Physician/TRACK MAINTAINER (Physician/TRACK MAINTAINER ) ) Arrival Mode Ambulatory Ambulatory Ambulatory Transfer Assistance None None Patient Identification Verified (Name & Yes Yes Yes ) Patient Requires Transmission-Based No No No Precautions Safety Precautions NA Finger Stick Blood Sugar(mg/dl) (if 120 120 indicated): Blood Sugar Stated by Stated by Patient Patient Height and Weight Height 5 ft 5 in Weight 179 lb Weight in Pounds 179.0 lbs Body Mass Index (BMI) 29.7 29.7 29.7 BMI Classification Overweight Overweight Overweight BSA - Mei 1.89 Vital Signs Temperature (97.8 F-99.1 F) 96.9 F L 97.2 F L 97.4 F L Temperature Source Temporal Temporal Temporal Pulse Rate (60-100) 82 81 Pulse Location Monitor Monitor Respiratory Rate (12-18) 20 H 18 Respiratory rate source Observation Observation Blood Pressure (90/60-120/80) 129/31 H 124/74 H Blood Pressure Mean 63 90 Source Monitor Monitor History Since Last Visit- (Skip if this is Patient's initial visit) Have you changed medications since your No No last visit? Any new allergies or adverse reactions No No Had a fall/change in ADL's that may No No increase risk of falls Signs or symptoms of abuse and/or No No neglect since last visit Have you been in the hospital since your No No last visit? Has dressing in place as prescribed Yes Yes Has compression in place as prescribed N/A N/A Has offloadiing in place as prescribed N/A N/A Experienced any changes in pain level or No No management Left Footwear Regular Shoe Right Footwear Regular Shoe Pain Scale: 0-10 Numeric Is Patient Pain Free? Yes Yes Yes - Nurse 1 - General Ulcer Measurement Start: 09/01/22 09:57 Freq: Status: Active Protocol: Activity Type Activity Date Activity User E-sign Co-sign Detail Recorded Client Recorded Date Recorded By Document 09/01/22 09:57 AK [id number] 09/01/22 10:09 AK Document 09/08/22 10:55 DL [id number] 09/08/22 10:58 DL Document 09/15/22 10:33 DL [id number] 09/15/22 10:37 DL 09/01/22 09/08/22 09/15/22 09:57 10:55 10:33 Wound Center Nurse 1 #1 ABD -Combined with other wound No -Current Size (cm) - Length 1.6 1.5 1.4 -Current Size (cm) - Width 2.6 2 2.3 -Current Size (cm) - Depth 0.1 0.1 0.1 -Total Square Cm 4.16 3.0 3.22 -Date of Last Picture (Recall this 09/01/22 field) -Photo Taken Yes Yes Yes -Tunneling No -Undermining/Tunneling No -Circular Undermining No -Change in Wound Grade/Stage No -Exudate Amt Large Small Medium -Exudate Type Yellow/Green Serosanguineous Serosanguineous -Wound Margin Distinct, Distinct, Distinct, Outline Outline Outline Attached Attached Attached -Granulation Amt None Present (0 None Present (0 Small (1-33%) %) %) -Granulation Quality N/A [place] -Slough/Fibrin Yes -Necrosis Amt Large (67-100%) Large (67-100%) Large (67-100%) -Necrotic Tissue Type Adherent Slough Adherent Slough Adherent Slough -Structure Exposed N/A N/A N/A -Texture (Catrina-wound Skin Appearance) No Abnormality, Scarring Scarring Assessed -Moisture (Catrina-wound Skin Appearance) No Abnormality, No Abnormality No Abnormality Assessed -Color (Catrina-wound Skin Appearance) No Abnormality, Erythema No Abnormality Assessed -Temperature ([place]rina-wound Skin No Abnormality No Abnormality No Abnormality Appearance) (Pt Warm) (Pt Warm) (Pt Warm) -Tenderness on Palpation ([place]-wound No Yes No Skin Appearance) -Ulcer Cleansing Soap and Water Rinsed/ Rinsed/ Irrigated with Irrigated with Saline Saline -Foul Odor after Cleansing No No No -Anesthetic Used 5% Lidocaine 5% Lidocaine 5% Lidocaine Gel Gel Gel - Nurse 2 - General Ulcer CM Notes Start: 09/01/22 09:57 Freq: Status: Active Protocol: Activity Type Activity Date Activity User E-sign Co-sign Detail Recorded Client Recorded Date Recorded By Document 09/01/22 11:24 PL [id number] 09/01/22 11:25 PL Document 09/08/22 12:16 PL [id number] 09/08/22 12:17 PL Document 09/15/22 11:12 PL [id number] 09/15/22 11:13 PL 09/01/22 09/08/22 09/15/22 11:24 12:16 11:12 Wound Center Nurse 2 #1 ABD -Time 10:16 11:03 10:50 -Correct Patient Yes Yes Yes -Correct Side, Site, Position Yes Yes Yes -Correct Procedure Yes Yes Yes -Procedure Performed Yes Yes Yes -Type of Procedure Debridement Debridement Debridement -Clinical Debridement Subcutaneous Subcutaneous Subcutaneous -Tissue Removed Subcutaneous Subcutaneous Subcutaneous -Post Debridement (cm) - Length 1.6 1.5 1.1 -Post Debridement (cm) - Width 2.6 2.0 2.0 -Post Debridement (cm) - Depth 0.1 0.1 0.1 -Total Square (Post) (cm) 4.16 3.00 2.20 -Area of Debridement (cm) - Length 1.6 1.5 1.1 -Area of Debridement (cm) - Width 2.6 2.0 2.0 -Total Square (Area) (cm) 4.16 3.00 2.20 -Tunneling No No No -Undermining/Tunneling No No No -Circular Undermining No No No -Wound/Ulcer Outcome Not Healed Not Healed Not Healed -Ulcer Cleansing Rinsed/ Rinsed/ Rinsed/ Irrigated with Irrigated with Irrigated with Saline Saline Saline -Foul Odor after Cleansing No No No -Bioengineered Tissue No No No -Bleeding Controlled with Pressure Pressure Pressure -Treatment Response Procedure Procedure Procedure Tolerated Well Tolerated Well Tolerated Well -Debridement - Subq, 1st 20sq cm Yes Yes Yes Pain Scale: 0-10 Numeric Is Patient Pain Free? Yes Yes Yes - Nurse 3 - General Ulcer D/C NN Start: 09/01/22 09:57 Freq: Status: Active Protocol: Activity Type Activity Date Activity User E-sign Co-sign Detail Recorded Client Recorded Date Recorded By Document 09/01/22 10:37 AK [id number] 09/01/22 10:54 AK Document 09/15/22 11:06 KR [id number] 09/15/22 11:07 KR 09/01/22 09/15/22 10:37 11:06 Wound Care Nurse 3 #1 ABD -Ulcer Cleansing Rinsed/ Rinsed/ Irrigated with Irrigated with Saline Saline -Foul Odor after Cleansing No -Negative Pressure Wound Therapy N/A -Other Dressing hydrogel until santyl pt picks up santyl -Primary Dressing Covered/Secured with Dry Gauze, Dry Gauze Secured with Tape Pain Scale: 0-10 Numeric Is Patient Pain Free? Yes Yes WC - Visit Discharge Discharge Condition Stable Stable Ambulatory Status Ambulatory Ambulatory Transportation Private Auto Private Auto Medication Reconcilliation completed & Yes provided to patient/care provider Clinical Summary of Care Provided Yes Assessment/Plan Assessment/Plan (1) Ulcer of abdomen wall: CODE(S): L98.499 - Non-pressure chronic ulcer of skin of other sites with unspecified severity QUALIFIERS: Non-pressure ulcer stage: with fat layer exposed Qualified Code(s): L98.492 - Non-pressure chronic ulcer of skin of other sites with fat layer exposed (2) Diabetes: CODE(S): E11.9 - Type 2 diabetes mellitus without complications QUALIFIERS: Diabetes mellitus type: type 2 Diabetes mellitus residential insulin use: with residential use Diabetes mellitus complication status: without complication Qualified Code(s): E11.9 - Type 2 diabetes mellitus without complications; Z79.4 - custodial (current) use of insulin (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: CODE(S): I25.10 - Atherosclerotic heart disease of [place] coronary artery without angina pectoris (4) CHF (congestive heart failure): CODE(S): I50.9 - Heart failure, unspecified QUALIFIERS: Heart failure type: unspecified Heart failure chronicity: acute Qualified Code(s): I50.9 - Heart failure, unspecified (5) Adrenal adenoma: CODE(S): D35.00 - Benign neoplasm of unspecified adrenal gland QUALIFIERS: Laterality: right Qualified Code(s): D35.01 - Benign neoplasm of right adrenal gland (6) History of respiratory failure: CODE(S): Z87.09 - Personal history of other diseases of the respiratory system (7) History of umbilical hernia repair: CODE(S): Z98.890 - Other specified postprocedural states; Z87.19 - Personal history of other diseases of the digestive system (8) History of cataract surgery: CODE(S): Z98.49 - Cataract extraction status, unspecified eye (9) History of heart artery stent: CODE(S): Z95.5 - Presence of coronary angioplasty implant and graft (10) History of total hysterectomy: CODE(S): Z90.710 - Acquired absence of both cervix and uterus (11) History of back surgery: CODE(S): Z98.890 - Other specified postprocedural states PLAN: Plan This is a 71-year-old diabetic female who presented with an ulceration on the right abdominal wall. The ulceration began as a blister, for unknown reasons. The blister ultimately unroofed spontaneously, resulting in the presence of an ulceration, of approximately 6 weeks duration. At the time of presentation, a large amount of frankly necrotic and nonviable tissue was present. The nonviable and necrotic tissue has been debrided. Only a small amount of nonviable tissue remains. We are to continue the use of collagenase Santyl, which will be applied by the patient on a daily basis. She has been provided a prescription for this medication. She has been counseled as to the appropriate means of application. The patient is to return in 1 week for reassessment. Glycemic optimization and nutritional optimization have been recommended. The patient underwent laboratory testing approximately 4 to 6 weeks ago at the [facility], and the results of that diagnostic testing has been requested. Total time: 29 minutes
== END 2022-09-28 23:59 | disposition home or self-care (01) ==
LOC: WC 10:45
PROVIDERS: PCP Family Medicine; Visit Provider Surgery
DX: E11.622 Type 2 diabetes mellitus with other skin ulcer (principal); L98.492 Non-pressure chronic ulcer of skin of other sites with fat layer exposed; I50.9 Heart failure, unspecified; Z79.4 Long term (current) use of insulin; Z90.710 Acquired absence of both cervix and uterus; D35.01 Benign neoplasm of right adrenal gland; Z82.62 Family history of osteoporosis; Z79.2 Long term (current) use of antibiotics; Z87.891 Personal history of nicotine dependence; I25.10 Atherosclerotic heart disease of native coronary artery without angina pectoris; Z80.1 Family history of malignant neoplasm of trachea, bronchus and lung; Z95.5 Presence of coronary angioplasty implant and graft; Z98.49 Cataract extraction status, unspecified eye; Z87.09 Personal history of other diseases of the respiratory system
CPT/HCPCS: 11042; 99213; G0463

== ENCOUNTER 2022-09-16 16:16 | Outpatient (CLI) | payer MEDICARE, SELFPAY ==
[2022-09-16 18:20] LABS: Cholesterol 148 mg/dL (200); High Density Lipoprotein 35 mg/dL; Triglycerides 235 mg/dL; Very Low Density Lipoprotein 47 mg/dL (5-40)
== END 2022-09-16 23:59 | disposition home or self-care (01) ==
LOC: MFPLAB 16:19
PROVIDERS: PCP Family Medicine; Referring Provider Family Medicine; Visit Provider Family Medicine
DX: E11.9 Type 2 diabetes mellitus without complications (principal)
CPT/HCPCS: 36415; 80061

== ENCOUNTER 2022-09-29 08:42 | Outpatient (RCR) | payer MEDICARE, SELFPAY ==
[2022-09-29 00:07] VITALS: BP 124/74; PULSE 81; RESP 18; TEMP 36.3; BMI 29.7
[2022-09-29 08:58] VITALS: BP 125/65; PULSE 81; RESP 18; TEMP 36.4; BMI 29.7
--- NOTE | 2022-09-29 09:25 | HP.PCM_ITS ---
History of Present Illness Date of Service: 09/29/22 Chief Complaint: Right-sided abdominal wound History of Wound: This is a 71-year-old female who presented with an ulceration on the right abdomen which had been present for approximately 6 weeks. It occurred spontaneously, initially as a blister, which subsequently unroofed, resulting in the presence of an ulceration. The patient has been applying Silvadene cream 1% topically on a daily basis, as prescribed by her primary care physician. The patient is diabetic, and self injects insulin, although the ulcer is at not the site of a recent injection. The patient's abdomen is slightly protuberant, though she is not considered obese. [facility] Medical History Anemia Arthritis Cancer Diabetes History of back problems History of ovarian cancer History of respiratory failure Irregular heart beat Scalp cyst Sebaceous cyst Smoker Ulcer of abdomen wall Home Medications carvedilol 6.25 mg tablet 6.25 mg PO BID blood pressure 02/10/19 [History Last Taken Unknown] glimepiride 4 mg tablet 4 mg PO DAILY 02/10/19 [History Last Taken Unknown] insulin glargine 100 unit/mL subcutaneous solution 50 unit SQ DAILY diabetes 02/10/19 [History Last Taken Unknown] magnesium 200 mg tablet 400 mg PO DAILY supplement 02/10/19 [History Last Taken Unknown] metformin 1,000 mg tablet 1,000 mg PO BID diabetes 02/10/19 [History Last Taken Unknown] quinapril 10 mg tablet 10 mg PO DAILY bp 02/10/19 [History Last Taken Unknown] cholecalciferol (vitamin D3) 10 mcg (400 unit) tablet (Vitamin D3) 1,000 unit PO DAILY supplement 01/18/20 [History Last Taken Unknown] insulin aspart U-100 100 unit/mL (3 mL) subcutaneous pen (Novolog Flexpen U-100 Insulin aspart) 20 unit subcut BID diabetes 04/04/21 [History Last Taken Unknown] Lantus U-100 Insulin 06/10/21 [History Last Taken Unknown] aspirin 81 mg tablet 81 mg PO DAILY 06/10/21 [History Last Taken Unknown] carvedilol 12.5 mg tablet (Coreg) 12.5 mg PO BID 06/10/21 [History Last Taken Unknown] empagliflozin 10 mg tablet (Jardiance) 10 mg PO DAILY 06/10/21 [History Last Taken Unknown] insulin aspart U-100 100 unit/mL subcutaneous solution (Novolog U-100 Insulin aspart) 06/10/21 [History Last Taken Unknown] mag vw-xrrofpx-dlovtfrfs-e-bilber 300 mg-600 mg-100 mg/15 mL oral susp 400 PO 06/10/21 [History Last Taken Unknown] nitroglycerin 0.4 mg sublingual tablet (Nitrostat) 0.4 mg sublingual Q5M PRN Chest Pain 06/10/21 [History Last Taken Unknown] pantoprazole 40 mg tablet,delayed release (Protonix) 40 mg PO DAILY 06/10/21 [History Last Taken Unknown] rosuvastatin 40 mg tablet (Crestor) 40 mg PO DAILY 06/10/21 [History Last Taken Unknown] spironolactone 25 mg tablet (Aldactone) 25 mg PO DAILY 06/10/21 [History Last Taken Unknown] ticagrelor 90 mg tablet (Brilinta) 90 mg PO BID 06/10/21 [History Last Taken Unknown] Allergy/AdvReac Type Severity Reaction Status Date / Time acetaminophen [From Percocet] AdvReac Vomiting Verified 04/03/21 22:52 cefuroxime AdvReac Other Verified 04/03/21 22:52 oxycodone [From Percocet] AdvReac Vomiting Verified 04/03/21 22:52 tetracycline AdvReac Itching Verified 04/03/21 22:52 Family History Mother Arthritis Cancer lung cancer Osteoporosis Brother Diabetes Surgical History History of appendectomy History of back surgery History of back surgery History of bilateral salpingo-oophorectomy History of cataract surgery History of heart artery stent History of left heart catheterization (04/04/21) History of total hysterectomy History of umbilical hernia repair History of ventral hernia repair History of ventral hernia repair Social History Smoking Status: Former smoker alcohol intake: never substance use type: does not use Vital Signs Vital Signs Vital Signs: 09/29/22 08:58 09/29/22 00:07 Temperature 97.5 F L 97.4 F L Temperature Source Temporal Pulse Rate 81 81 Respiratory Rate 18 18 Blood Pressure 125/65 H 124/74 H Blood Pressure Mean 85 90 Blood Pressure Source Monitor Weight Weight: 179 lb Body Mass Index (BMI) 29.7 Physical Exam Const alert, oriented x3, no apparent distress and well nourished General Appearance: cooperative, comfortable, well kempt and well developed Orientation / Consciousness: awake, oriented to person, oriented to place and oriented to time Exam Limitations: no limitations HEENT normocephalic, head/scalp atraumatic and hearing grossly normal bilaterally Head and Scalp: normal to inspection, normocephalic and atraumatic External Ear: external ears normal Eyes PERRL and EOMs intact bilaterally General Eye: normal appearance of both eyes Resp normal respiratory effort, normal air movement, no retractions and no use of accessory muscles Effort and Inspection: able to speak in complete sentences Extremity no calf tenderness General Extremity: Negative for clubbing or cyanosis Skin Wound Narrative: An ulceration is noted on the right abdominal wall. It extends through all layers of the dermis. It has decreased in size since last evaluated. A small amount of bioburden and nonviable tissue persist. There is no sign of infection or cellulitis. Dimensions are documented elsewhere. Neuro oriented x3, CN's II-XII intact bilaterally, moves all extremities and no focal motor deficits Sensorium / Orientation: awake, alert, oriented to person, oriented to place and oriented to time Psych Appearance: grossly normal and appropriate Attitude: calm Activity / Motor Behavior: appropriate eye contact Speech: normal speech Mood & Affect: euthymic mood Thought Process: normal thought process Thought Content: normal thought content Attention / Concentration: attention grossly intact Debridement Note Debridement Note Wound debrided: Abdominal wall ulceration Laterality: Right Type of Debridement: Excisional debridement Anesthesia Used: 5% Lidocaine Gel and Cetacaine Depth: Down to and including healthy tissue and in the subcutaneous layer Percentage of wound debrided: 100 Instrument Used: 5mm curette Tissue Removed: Bioburden Severity: Fat Layer Exposed Amount of bleeding with debridement: Mild Bleeding Controlled with: Compression and gauze Patient tolerated procedure: Patient tolerated procedure well Post-Debridement Measurements and Additional Note: Post-Debridement Measurements/Treatment WOOD - Nurse 1 - General Ulcer Assessment Start: 09/29/22 08:57 Freq: Status: Active Protocol: NING Activity Type Activity Date Activity User E-sign Co-sign Detail Recorded Client Recorded Date Recorded By Document 09/29/22 08:58 DL Desktop 09/29/22 09:02 DL 09/29/22 08:58 WC - Today's Visit Information Type of service 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 ) Arrival Mode Ambulatory Transfer Assistance None Patient Identification Verified (Name & Yes ) Patient Requires Transmission-Based No Precautions Finger Stick Blood Sugar(mg/dl) (if 119 indicated): Blood Sugar Stated by Patient Height and Weight Body Mass Index (BMI) 29.7 BMI Classification Overweight Vital Signs Temperature (97.8 F-99.1 F) 97.5 F L Temperature Source Temporal Pulse Rate (60-100) 81 Pulse [address] Monitor Respiratory Rate (12-18) 18 Respiratory rate source Observation Blood Pressure (90/60-120/80) 125/65 H Blood Pressure Mean 85 Source Monitor History Since Last Visit- (Skip if this is Patient's initial visit) Have you changed medications since your No last visit? Any new allergies or adverse reactions No Had a fall/change in ADL's that may No increase risk of falls Signs or symptoms of abuse and/or No neglect since last visit Have you been in the hospital since your No last visit? Has dressing in place as prescribed Yes Has compression in place as prescribed N/A Has offloadiing in place as prescribed N/A Experienced any changes in pain level or No management Pain Scale: 0-10 Numeric Is Patient Pain Free? Yes - Nurse 1 - General Ulcer Measurement Start: 09/29/22 08:57 Freq: Status: Active Protocol: Activity Type Activity Date Activity User E-sign Co-sign Detail Recorded Client Recorded Date Recorded By Document 09/29/22 08:58 Desktop 09/29/22 09:02 DL 09/29/22 08:58 Wound Center Nurse 1 #1 ABD -Current Size (cm) - Length 1.2 -Current Size (cm) - Width 1.4 -Current Size (cm) - Depth 0.1 -Total Square Cm 1.68 -Photo Taken Yes -Exudate Amt Small -Exudate Type Serosanguineous -Wound Margin Distinct, Outline Attached -Granulation Amt None Present (0 %) -Necrosis Amt Large (67-100%) -Necrotic Tissue Type Adherent Slough -Structure Exposed N/A -Texture (Catrina-wound Skin Appearance) Scarring -Moisture (Catrina-wound Skin Appearance) No Abnormality -Color (Catrina-wound Skin Appearance) No Abnormality -Temperature (Catrina-wound Skin No Abnormality Appearance) (Pt Warm) -Tenderness on Palpation (Catrina-wound No Skin Appearance) -Ulcer Cleansing Rinsed/ Irrigated with Saline -Foul Odor after Cleansing No -Anesthetic Used 5% Lidocaine Gel WC - Nurse 3 - General Ulcer D/C NN Start: 09/29/22 08:57 Freq: Status: Active Protocol: Activity Type Activity Date Activity User E-sign Co-sign Detail Recorded Client Recorded Date Recorded By Document 09/29/22 09:14 DL Desktop 09/29/22 09:15 DL 09/29/22 09:14 Wound Care Nurse 3 -Ulcer Cleansing Rinsed/ Irrigated with Saline -Foul Odor after Cleansing No -Other Dressing santyl -Primary Dressing Covered/Secured with Dry Gauze, Secured with Tape Treatment Response Procedure Tolerated Well Pain Scale: 0-10 Numeric Is Patient Pain Free? 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 Diabetes mellitus complication status: without complication Qualified Code(s): E11.9 - Type 2 diabetes mellitus without complications; 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 (3) Atherosclerotic heart disease of [place] coronary artery without angina pectoris: CODE(S): I25.10 - Atherosclerotic heart disease of [place] coronary artery without angina pectoris (4) CHF (congestive heart failure): CODE(S): I50.9 - Heart failure, unspecified QUALIFIERS: Heart failure type: unspecified Heart failure chronicity: acute Qualified Code(s): I50.9 - Heart failure, unspecified (5) Adrenal adenoma: CODE(S): D35.00 - Benign neoplasm of unspecified adrenal gland QUALIFIERS: Laterality: right Qualified Code(s): D35.01 - Benign neoplasm of right adrenal gland (6) History of respiratory failure: CODE(S): Z87.09 - Personal history of other diseases of the respiratory system (7) History of umbilical hernia repair: CODE(S): Z98.890 - Other specified postprocedural states; Z87.19 - Personal history of other diseases of the digestive system (8) History of cataract surgery: CODE(S): Z98.49 - Cataract extraction status, unspecified eye (9) History of heart artery stent: CODE(S): Z95.5 - Presence of coronary angioplasty implant and graft (10) History of total hysterectomy: CODE(S): Z90.710 - Acquired absence of both cervix and uterus (11) History of back surgery: CODE(S): Z98.890 - Other specified postprocedural states PLAN: Plan This is a 71-year-old diabetic female who presented with an ulceration on the right abdominal wall. The ulceration began as a blister, for unknown reasons. The blister ultimately unroofed spontaneously, resulting in the presence of an ulceration, of approximately 6 weeks duration. At the time of presentation, a large amount of frankly necrotic and nonviable tissue was present. The nonviable and necrotic tissue has been debrided, and essentially eliminated. We are to continue the use of collagenase Santyl, which will be applied by the patient on a daily basis. She has been provided a prescription for this medication. She has been counseled as to the appropriate means of application. The patient is to return in 1 week for reassessment. Glycemic optimization and nutritional optimization have been recommended. The patient underwent laboratory testing approximately 4 to 6 weeks ago at the [facility], and the results of that diagnostic testing has been requested. Total time: 28 minutes
== END 2022-10-28 23:59 | disposition home or self-care (01) ==
LOC: WC 08:42
PROVIDERS: PCP Family Medicine; Visit Provider Surgery
DX: E11.622 Type 2 diabetes mellitus with other skin ulcer (principal); L98.492 Non-pressure chronic ulcer of skin of other sites with fat layer exposed; I50.9 Heart failure, unspecified; Z79.4 Long term (current) use of insulin; Z87.891 Personal history of nicotine dependence; D35.01 Benign neoplasm of right adrenal gland; Z90.710 Acquired absence of both cervix and uterus; I25.10 Atherosclerotic heart disease of native coronary artery without angina pectoris; Z80.1 Family history of malignant neoplasm of trachea, bronchus and lung; Z82.62 Family history of osteoporosis; Z87.09 Personal history of other diseases of the respiratory system; Z95.5 Presence of coronary angioplasty implant and graft; Z98.49 Cataract extraction status, unspecified eye
CPT/HCPCS: 11042

== ENCOUNTER 2022-11-02 18:01 | Emergency (ER) | payer MEDICARE, SELFPAY ==
[2022-11-02 18:02] VITALS: BP 142/61; PULSE 92; RESP 16; TEMP 36.4; O2SAT 98; BMI 34.0
--- NOTE | 2022-11-02 18:10 | RAD_ITS ---
STUDY: X-RAY - LEFT SHOULDER REASON FOR EXAM: Female, 71 years old. Fall, left shoulder pain TECHNIQUE: 4 view(s) of the shoulder. COMPARISON: None. FINDINGS: Normal glenohumeral articulation. Normal acromioclavicular joint. Normal acromion. Normal humeral head and visualized proximal humerus. The soft tissue structures are unremarkable. There is no demonstrated fracture. Normal visualized pulmonary apex. RAD/Shoulder min 2 Views IMPRESSION: Normal x-ray examination of the shoulder. Electronically Signed: Shade Mahajan MD at 18:29 EST ,
--- NOTE | 2022-11-02 20:06 | EDS_ITS ---
HPI HPI - Fall History of Present Illness Chief Complaint: Fall Narrative Narrative: Patient presents after mechanical fall she fell while in the driveway, she slipped. She hurt her left shoulder which is where most of the pain is. She also hit the back of her head. She has no neck pain. She has no other injuries. No loss of consciousness no nausea or vomiting or vision changes. She is is on Brilinta and aspirin [facility] Medical History Anemia Arthritis Cancer Diabetes History of back problems History of ovarian cancer History of respiratory failure Irregular heart beat Scalp cyst Sebaceous cyst Smoker Ulcer of abdomen wall Home Medications carvedilol 6.25 mg tablet 6.25 mg PO BID blood pressure 02/10/19 [History Last Taken Unknown] glimepiride 4 mg tablet 4 mg PO DAILY 02/10/19 [History Last Taken Unknown] insulin glargine 100 unit/mL subcutaneous solution 50 unit SQ DAILY diabetes 02/10/19 [History Last Taken Unknown] magnesium 200 mg tablet 400 mg PO DAILY supplement 02/10/19 [History Last Taken Unknown] metformin 1,000 mg tablet 1,000 mg PO BID diabetes 02/10/19 [History Last Taken Unknown] quinapril 10 mg tablet 10 mg PO DAILY bp 02/10/19 [History Last Taken Unknown] cholecalciferol (vitamin D3) 10 mcg (400 unit) tablet (Vitamin D3) 1,000 unit PO DAILY supplement 01/18/20 [History Last Taken Unknown] insulin aspart U-100 100 unit/mL (3 mL) subcutaneous pen (Novolog Flexpen U-100 Insulin aspart) 20 unit subcut BID diabetes 04/04/21 [History Last Taken Unknown] Lantus U-100 Insulin 06/10/21 [History Last Taken Unknown] aspirin 81 mg tablet 81 mg PO DAILY 06/10/21 [History Last Taken Unknown] carvedilol 12.5 mg tablet (Coreg) 12.5 mg PO BID 06/10/21 [History Last Taken Unknown] empagliflozin 10 mg tablet (Jardiance) 10 mg PO DAILY 06/10/21 [History Last Taken Unknown] insulin aspart U-100 100 unit/mL subcutaneous solution (Novolog U-100 Insulin aspart) 06/10/21 [History Last Taken Unknown] mag ie-quzcaie-sagaqvqwb-e-bilber 300 mg-600 mg-100 mg/15 mL oral susp 400 PO 06/10/21 [History Last Taken Unknown] nitroglycerin 0.4 mg sublingual tablet (Nitrostat) 0.4 mg sublingual Q5M PRN Chest Pain 06/10/21 [History Last Taken Unknown] pantoprazole 40 mg tablet,delayed release (Protonix) 40 mg PO DAILY 06/10/21 [History Last Taken Unknown] rosuvastatin 40 mg tablet (Crestor) 40 mg PO DAILY 06/10/21 [History Last Taken Unknown] spironolactone 25 mg tablet (Aldactone) 25 mg PO DAILY 06/10/21 [History Last Taken Unknown] ticagrelor 90 mg tablet (Brilinta) 90 mg PO BID 06/10/21 [History Last Taken Unknown] Allergy/AdvReac Type Severity Reaction Status Date / Time acetaminophen [From Percocet] AdvReac Vomiting Verified 11/02/22 18:02 cefuroxime AdvReac Other Verified 11/02/22 18:02 oxycodone [From Percocet] AdvReac Vomiting Verified 11/02/22 18:02 tetracycline AdvReac Itching Verified 11/02/22 18:02 Family History Mother Arthritis Cancer lung cancer Osteoporosis Brother Diabetes Surgical History History of appendectomy History of back surgery History of back surgery History of bilateral salpingo-oophorectomy History of cataract surgery History of heart artery stent History of left heart catheterization (04/04/21) History of total hysterectomy History of umbilical hernia repair History of ventral hernia repair History of ventral hernia repair Social History Smoking Status: Former smoker alcohol intake: never substance use type: does not use ROS ROS ED ROS Narrative Social: Noncontributory Medications: Reviewed, includes aspirin and Brilinta. Past medical history: Reviewed Review of systems General: Head injury but no loss of consciousness. HEENT: No facial injury Neck: No neck pain Cardiovascular: Patient denies any chest pain or palpitations Chest wall: No chest wall contusions Respiratory: There is no shortness of breath GI: There is no nausea vomiting diarrhea or abdominal pain, no abdominal wall contusions Skin: No lacerations or abrasions Neurological: Patient has no memory loss, confusion, or any focal weakness Psychiatric: No recent behavioral changes Back: No back pain, no problems with ambulation Musculoskeletal: Shoulder injury All other systems are reviewed and normal EXAM Physical Exam Narrative Exam Narrative: Physical exam Vitals reviewed General: Does not appear in significant distress, no obvious injuries HEENT: No facial injury Head: I do not see signs of head injury but she hit the posterior scalp, there is no contusion hematoma or laceration. Eyes: Extraocular movements intact Neck: No C-spine tenderness with full range of motion Heart: Regular rate normal pulses Chest wall: No chest wall pain Lungs clear lungs bilaterally with normal inspiration and expiration without tachypnea GI: Abdomen is soft and nontender there is no mass no guarding no abdominal wall contusion : Stable pelvis Musculoskeletal: Patient has left shoulder tenderness, she has difficulty AB duct and more than 90 degrees. She has normal strength and sensation otherwise. No deformity. Skin: No abrasions or laceration Neurological: Patient is alert and oriented with no focal deficits Const Vital Signs: 11/02/22 18:02 11/02/22 19:43 Temperature 97.6 F L Temperature Source Temporal Pulse Rate 92 Respiratory Rate 16 Respiratory Effort Normal Non-Labored Respiratory Pattern Normal Blood Pressure 142/61 H Blood Pressure Mean 88 Pulse Ox 98 Oxygen Delivery Method Room Air MDM MDM Radiography Diagnostic Testing: Clinical Impression(s) from Imaging Studies Shoulder X-Ray 11/02/22 18:10 IMPRESSION: Normal x-ray examination of the shoulder. Electronically Signed: Shade Mahajan MD at 18:29 EST , Shoulder x-ray read by me is normal Treatment and Re-Evaluation Narrative: Patient is on blood thinners, she hit her head. I told her I would get CT of the head and C-spine. Patient is refusing. I sat and explained to her that because of the head injury anticoagulation and her age she meets absolute criteria for a CT we could miss a serious head bleed potentially life- threatening. She understands that but again is refusing a CAT scan. She understands that we could miss intracranial hemorrhage although she does not believe me but at least she understands. I told her that if anything changes s he has a headache she has nausea vomiting or any other symptoms she needs to return. She understands. Discharge Plan Triage Chief Complaint: Fall ED Provider: Shade Esposito Dx/Rx/DC Orders Clinical Impression: Contusion of left shoulder, Concussion without loss of consciousness, Left against medical advice Instructions: Bruises (Contusions), ED Concussion Prescriptions: No Action cholecalciferol (vitamin D3) [Vitamin D3] 10 mcg (400 unit) tablet 1,000 unit PO DAILY carvedilol 6.25 MG tablet 6.25 mg PO BID insulin glargine 100 UNIT/ML solution 50 unit SQ DAILY quinapril 10 MG tablet 10 mg PO DAILY metformin 1,000 MG tablet 1,000 mg PO BID Rx Instructions: pt takes in the morning and at lunch glimepiride 4 MG tablet 4 mg PO DAILY magnesium 200 MG tablet 400 mg PO DAILY insulin aspart U-100 [Novolog Flexpen U-100 Insulin] 100 unit/mL (3 mL) Insulin Pen 20 unit SUBCUT BID Rx Instructions: pt takes with lunch and dinner Jardiance 10 mg Tablet 10 mg PO DAILY carvedilol [Coreg] 12.5 mg Tablet 12.5 mg PO BID spironolactone [Aldactone] 25 mg Tablet 25 mg PO DAILY insulin aspart U-100 [Novolog U-100 Insulin aspart] 100 unit/mL Solution pantoprazole [Protonix] 40 mg Tablet,Delayed Release (Dr/Ec) 40 mg PO DAILY nitroglycerin [Nitrostat] 0.4 mg Tablet, Sublingual 0.4 mg SUBLINGUAL Q5M PRN (Reason: Chest Pain) aspirin 81 mg Tablet 81 mg PO DAILY rosuvastatin [Crestor] 40 mg Tablet 40 mg PO DAILY mag gj-girqjxz-pgwlstxdh-e-michael 300 mg-600 mg- 100 mg/15 mL Suspension 400 PO Brilinta 90 mg Tablet 90 mg PO BID Lantus U-100 Insulin Primary Care Provider: Cherie Deluca Referrals: Cherie Deluca MD [Primary Care Provider] - Activity Restrictions/Additional Instructions: You chose to sign AGAINST MEDICAL ADVICE. You hit your head, you are on Brilinta and aspirin. Both of these can increase the risk of head injury as well as your age. You could have a bleed inside your brain from which you could , you become paralyzed, you could end up in a persistent vegetative state or other serious issues. If you change your mind or anything worsens we are glad to see you back in our emergency department. Disposition Disposition: Home, Self Care
== END 2022-11-02 20:28 | disposition home or self-care (01) ==
PROVIDERS: Emergency Provider Emergency Medicine; PCP Family Medicine; Visit Provider Emergency Medicine
DX: S06.0X0A Concussion without loss of consciousness, initial encounter (principal); E11.9 Type 2 diabetes mellitus without complications; S40.012A Contusion of left shoulder, initial encounter; Z87.891 Personal history of nicotine dependence; W01.0XXA Fall on same level from slipping, tripping and stumbling without subsequent striking against object, initial encounter; Z53.29 Procedure and treatment not carried out because of patient's decision for other reasons
CPT/HCPCS: 73030; 99283

== ENCOUNTER → 2023-08-04 | Outpatient (CLI) | payer MEDICARE, SELFPAY | END | disposition home or self-care (01) | PROVIDERS: PCP Family Medicine; Visit Provider Podiatrist | DX: L97.512 Non-pressure chronic ulcer of other part of right foot with fat layer exposed (principal) | CPT/HCPCS: 87070; 87075; 87205 ==

== ENCOUNTER → 2023-09-01 | Outpatient (CLI) | payer MEDICARE, SELFPAY ==
--- NOTE | 2023-09-01 08:32 | VDLE_ITS ---
Reason For Study: Bilateral leg swelling RIGHT LEFT GSV is normal. GSV is normal. CFV is compressible, spontaneous, phasic, CFV is compressible, spontaneous, phasic, competent and demonstrates normal competent, and demonstrates normal augmentation. augmentation. FV is compressible, spontaneous, phasic, FV is compressible, spontaneous, phasic, competent and demonstrates normal competent and demonstrates normal augmentation. augmentation. POP V is compressible, spontaneous, phasic, POP V is compressible, spontaneous, phasic, competent and demonstrates normal competent and demonstrates normal augmentation. augmentation. T/P Trunk is compressible. T/P Trunk is compressible. PTV is compressible. PTV is compressible. RT PerV is compressible. LT PerV is compressible. Procedure This is a venous duplex using B-mode, color flow and spectral Doppler. Exam performed in department. A preliminary report was called and/or faxed to Dr. Schaffer. VL/Venous Duplex US - Jigar Extrem Interpretation Summary No evidence for acute deep venous thrombosis bilateral lower extremities with p atent and compressible bilateral great saphenous veins. Ordering Physician: Yonis Schaffer Referring Physician: Cherie Deluca M.D. Performed By: Rosa Morrison RVT
== END | disposition home or self-care (01) ==
LOC: CVS 08:22
PROVIDERS: PCP Family Medicine; Referring Provider Podiatrist; Visit Provider Podiatrist
DX: M79.604 Pain in right leg (principal); M79.605 Pain in left leg; R22.41 Localized swelling, mass and lump, right lower limb; R22.42 Localized swelling, mass and lump, left lower limb
CPT/HCPCS: 93970

== ENCOUNTER → 2023-12-20 | Outpatient (CLI) | payer MEDICARE, SELFPAY ==
[2023-12-20 16:10] LABS: AST(SGOT) 16 U/L (15-37); Alanine Aminotransfer ALT/SGPT 15 U/L (13-56); Albumin, Serum 3.4 g/dL (3.2-5.0); Alkaline Phosphatase 43 U/L (45-117); Anion Gap 6 (5-15); BUN 17 mg/dL (7-18); BUN/Creat Ratio 24.1 RATIO (10-20); Chloride 106 mmol/L (98-107); Cholesterol 123 mg/dL (200); Creatinine, Serum 0.71 mg/dL (0.55-1.02); EST Glomerular Filtration Rate 86 mL/min (>60); Est Glom Filt Rate - Afr Amer 104 mL/min (>60); Globulin 3.8 g/dL (2.2-4.2); Glucose 111 mg/dL (74-106); High Density Lipoprotein 40 mg/dL; Potassium 4.2 mmol/L (3.5-5.1); Protein, Total 7.2 g/dL (6.4-8.2); Sodium Level 139 mmol/L (136-145); Triglycerides 195 mg/dL; Very Low Density Lipoprotein 39 mg/dL (5-40)
[2023-12-20 16:48] LABS: Microalbumin,Random Urine 6.8 mg/L (NO RANGE EST.); Microalbumin:Creatinine Ratio 10.3 mg/g CRE (<30 mg/g CRE)
== END | disposition home or self-care (01) ==
LOC: MFPLAB 13:43
PROVIDERS: PCP Family Medicine; Visit Provider Family Medicine
DX: E11.9 Type 2 diabetes mellitus without complications (principal)
CPT/HCPCS: 36415; 80048; 80061; 80076; 82043; 82570

== ENCOUNTER → 2024-07-05 | Outpatient (CLI) | payer MEDICARE, SELFPAY ==
--- NOTE | 2024-07-05 12:26 | BI_ITS ---
MAMMOGRAPHY - BILATERAL SCREENING 3-D TOMOSYNTHESIS REASON FOR EXAM: Female, 73 years old. screening PERTINENT HISTORY: No significant family history. TECHNIQUE: 2-D mammograms and 3-D Tomosynthesis of the breast (s) were performed. CAD was performed. COMPARISON: 07/09/2022 FINDINGS: The breast composition is composed of scattered fibroglandular density. Scattered benign calcifications are seen. No dense spiculated masses or suspicious microcalcifications are identified. No architectural distortion is identified. There is no skin thickening or retraction. There has been no significant change since the prior study. BI/SCRN MAMM (CAD)W/ALBERT BILAT IMPRESSION: No mammographic signs of malignancy. Routine yearly mammograms recommended. ASSESSMENT CATEGORY: BIRADS Category 1: Negative. A letter regarding these results will be sent to the patient by the facility within 30 days. FOLLOW UP RECOMMENDATION: Yearly follow up mammogram recommended. (A) Approximately 10% of breast cancers are not detected by mammography. A normal mammogram should not delay biopsy of a clinically suspicious abnormality. Electronically Signed: Curtis Enciso MD at 13:04 EDT ,
== END | disposition home or self-care (01) ==
LOC: OPBI 12:26
PROVIDERS: PCP Family Medicine; Referring Provider Family Medicine; Visit Provider Family Medicine
DX: Z12.31 Encounter for screening mammogram for malignant neoplasm of breast (principal)
CPT/HCPCS: 77063; 77067

== ENCOUNTER → 2025-05-15 | Outpatient (CLI) | payer MEDICARE, SELFPAY ==
--- NOTE | 2025-05-15 12:52 | RAD_ITS ---
PROCEDURE: CHEST PA AND LATERAL 05/15/2025 REASON FOR EXAM: BRONCHITIS TECHNIQUE: CHEST PA AND LATERAL COMPARISON: CT scan of the chest on 04/04/2021. Radiograph on 04/03/2021. FINDINGS: Mild bilateral basilar atelectatic pulmonary changes, unchanged. Mild bilateral peribronchial interstitial thickening suggestive of bronchitis. There is no demonstrated pleural abnormality. Normal heart and pericardium. Normal mediastinum and tuan. Normal visualized pulmonary arteries. Normal visualized aortic arch and descending thoracic aorta. Normal visualized thoracic spine. Normal visualized ribs, clavicles, and shoulders. There is no demonstrated abnormality of the visualized soft tissue structures of the upper abdomen. RAD/Chest PA and Lateral IMPRESSION: Bronchitis. Bilateral basilar atelectatic pulmonary changes, unchanged. Reading [facility] [id number]
== END | disposition home or self-care (01) ==
LOC: MTRAD 12:52
PROVIDERS: PCP Family Medicine; Referring Provider Family Medicine; Visit Provider Family Medicine
DX: J20.9 Acute bronchitis, unspecified (principal)
CPT/HCPCS: 71046

== ENCOUNTER → 2025-06-27 | Outpatient (CLI) | payer MEDICARE, SELFPAY ==
[2025-06-27 09:10] LABS: Mucous, Urine 0 SEEN /hpf (<or=2+)
[2025-06-27 10:22] LABS: Color, Urine Yellow (Yellow); Glucose, Dipstick 1000 mg/dl (Normal); Ketone-Dipstick Negative (Negative); Leukocyte Esterase-Dipstick 25 /ul (Negative); Nitrite-Dipstick Negative (Negative); Occult Blood-Urine Negative /ul (Negative); Protein-Dipstick Negative (Negative); Specific Gravity, Urine 1.015 (1.002-1.030); Urine Bilirubin Dipstick Negative (Negative)
[2025-06-27 10:22] LABS: Hematocrit 40.6 % (37-47); Hemoglobin 13.1 g/dL (12.0-15.0); Immature Granulocytes Count 0.030 X10^3/uL (0.0-0.0); Mean Corp Hgb Conc 32.3 g/dL (32-36); Mean Corpuscular Volume 89.0 fL (81-99); Mean Platelet Vol. 12.5 fl (6.2-12.0); NRBC Flagged by Analyzer 0 % (0-5); Platelet Count 187 K/mm3 (150-450); RBC Distribution Width CV 14.4 % (11.6-14.6); RBC Distribution Width SD 46.9 fl (35.1-43.9); Red Blood Count 4.56 M/mm3 (4.2-5.4); White Blood Count 6.4 K/mm3 (4.4-11.0)
[2025-06-27 10:32] LABS: Red Blood Cells-Urine 0-5 SEEN /hpf (0-5); Squamous Epithelial Cells - UA 0-5 SEEN /hpf (5-10)
[2025-06-27 11:06] LABS: PTHIN 22 pg/mL (11-61)
[2025-06-27 11:10] LABS: AST(SGOT) 14 U/L (<=31); Alanine Aminotransfer ALT/SGPT 9 U/L (<=34); Albumin, Serum 4.1 g/dL (3.4-4.8); Alkaline Phosphatase 43 U/L (35-104); Anion Gap 13 (5-15); BUN 24 mg/dL (4-19); BUN/Creat Ratio 28.9 RATIO (10-20); Calcium,Total 10.1 mg/dL (7.6-11.0); Carbon Dioxide 23.2 mmol/L (21.0-32.0); Chloride 103 mmol/L (98-108); Cholesterol 121 mg/dL (<=200); Globulin 2.7 g/dL (2.2-4.2); Glucose 191 mg/dL (70-99); Low Density Lipoprotein Calc. 52 mg/dL; Potassium 4.2 mmol/L (3.3-5.1); Triglycerides 144 mg/dL; Very Low Density Lipoprotein 29 mg/dL (5-40); cholesterol:hdl ratio screen 3.04
[2025-06-27 11:42] LABS: Vitamin D,25 Hydroxy 29.3 ng/mL (30-100)
[2025-06-27 17:50] LABS: Creatinine, Urine (random) 37.00 mg/dL (28.00-217.00); Microalbumin,Random Urine < 12.0 mg/L (<20 mg/L)
== END | disposition home or self-care (01) ==
LOC: MFPLAB 09:06
PROVIDERS: PCP Family Medicine; Referring Provider Family Medicine; Visit Provider Family Medicine
DX: E11.9 Type 2 diabetes mellitus without complications (principal); E83.52 Hypercalcemia
CPT/HCPCS: 80053; 80061; 81001; 82043; 82306; 82570; 83036; 83970; 85025

== ENCOUNTER → 2025-07-04 | Outpatient (CLI) | payer MEDICARE, SELFPAY ==
--- OUTSIDE RECORDS SUMMARY | 2025-07-04 07:22 | XMS RPT_ITS | CCD ---
Author Organization [facility] Care Team Providers [employer] Leader Name Role Phone Jailene Diez Unavailable Unavailable Unavailable Unavailable KUMEJIAALD Unavailable Unavailable KU, MEJIA RICHARD Unavailable Unavailable CHARY, JAILENE BOB Unavailable Unavailable KU, MEJIA RICHARD Unavailable Unavailable KU, MEJIA RICHARD Unavailable Unavailable CHARY, JAILENE BOB Unavailable Unavailable SYSTEM, PROVIDER NOT IN Unavailable Unavaila ble SYSTEM, PROVIDER NOT IN Unavailable Unavaila ble CHARY, JAILENE BOB Unavailable Unavailable KU, MEJIA RICHARD Unavailable Unavailable CHARY, JAILENE BOB Unavailable Unavailable CHARY, JAILENE BOB Unavailable Unavailable CHARY, JAILENE BOB Unavailable Unavailable CHARY, JAILENE BOB Unavailable Unavailable KU, MEJIA RICHARD Unavailable Unavailable CHARY, JAILENE BOB Unavailable Unavailable CHARY, JAILENE BOB Unavailable Unavailable CHARY, JAILENE BOB Unavailable Unavailable KU, MEJIA RICHARD Unavailable Unavailable CHARY, JAILENE BOB Unavailable Unavailable KU, MEJIA RICHARD Unavailable Unavailable CHARY, JAILENE BOB Unavailable Unavailable KU, MEJIA RICHARD Unavailable Unavailable CHARY, JAILENE BOB Unavailable Unavailable KU, MEJIA RICHARD Unavailable Unavailable CHARY, JAILENE BOB Unavailable Unavailable KU, MEJIA RICHARD Unavailable Unavailable CHARY, JAILENE BOB Unavailable Unavailable CHARY, JAILENE BOB Unavailable Unavailable CHARY, JAILENE BOB Unavailable Unavailable KU, MEJIA RICHARD Unavailable Unavailable CHARY, JAILENE BOB Unavailable Unavailable KU, MEJIA RICHARD Unavailable Unavailable CHARY, JAILENE BOB Unavailable Unavailable CHARY, JAILENE BOB Unavailable Unavailable CHARY, JAILENE BOB Unavailable Unavailable CHARY, JAILENE BOB Unavailable Unavailable CHARY, JAILENE BOB Unavailable Unavailable CHARY, JAILENE BOB Unavailable Unavailable CHARY, JAILENE BOB Unavailable Unavailable KU, MEJIA RICHARD Unavailable Unavailable CHARY, JAILENE BOB Unavailable Unavailable CHARY, JAILENE BOB Unavailable Unavailable CHARY, JAILENE BOB Unavailable Unavailable CHARY, JAILENE BOB Unavailable Unavailable CHARY, JAILENE BOB Unavailable Unavailable CHARY, JAILENE BOB Unavailable Unavailable CHARY, JAILENE BOB Unavailable Unavailable CHARY, JAILENE BOB Unavailable Unavailable CHARY, JAILENE BOB Unavailable Unavailable CHARY, JAILENE BOB Unavailable Unavailable CHARY, JAILENE BOB Unavailable Unavailable CHARYJAILENE BOB Unavailable Unavailable CHARY, JAILENE BOB Unavailable Unavailable CHARY, JAILENE BOB Unavailable Unavailable CharyJailene Bob Primary Care Provider [phone] Jailene Diez Unavailable Cherie Deluca S Primary Care Provider Yosi, Cherie S Primary Care Provider Cherie Deluca Shayna Primary Care Provider Cherie Deluca S Primary Care Provider Cherie Deluca S Primary Care Provider [phone] Dr. Cherie Deluca Primary Care Provider Dr. Elijah Eden Attending Provider Dr. Yonis Schaffer Referring Provider CHERIE DELUCA SHAYNA Primary Care Unavailable YOSI CHERIE SHAYNA Primary Care Unavailable JOHNATHAN STUBBS Referring Unavailable CHERIE DELUCA SHAYNA Primary Care Unavailable Kavon GANDHI, Dr. Gallito Viera Primary Care Provider Dr. Gallito Jacobson MD Attending Provider Dr. Gallito Jacobson MD Referring Provider Gallito Jacobson Referring Unavailable Gallito Jacobson Attending Unavailable Gallito Jacobson Primary Care Unavailable Gallito Jacobson Referring Unavailable Gallito Jacobson Attending Unavailable Gallito Jacobson Primary Care Unavailable Gallito Jacobson Referring Unavailable Gallito Jacobson Attending Unavailable Gallito Jacobson Primary Care Unavailable Jolliff, Cherie S Referring Unavailable Jolljarett, Cherie S Attending Unavailable Cherie Deluca S Primary Care Unavailable JOHNATHAN STUBBS Attending Unavailable CHERIE DELUCA Primary Care Unavailable Allergies Allergy Classification Reported Allergen(s) Allergy Type Date of Onset Reaction(s) Facility Acetaminophen / oxyCODONE (2 sources) Acetaminophen / oxyCODONE Drug Allergy 04-04-20 21 [facility] Cephalosporins (antibiotic) (2 sources) Cefuroxime Drug Allergy 04-04-20 21 [facility] Unclassified (2 sources) Tetracyclines & Related Propensity to adverse reactions to drug 04-04-20 21 [facility] (20 sources) acetaminophen / oxyCODONE; Translations: [OXYCODONE-ACETAM INOPHEN] Propensity to adverse reactions to drug 08-20-20 15 Other (See Comments), Nausea And Vomiting [facility] Work Phone: (20 sources) atorvastatin; Translations: [ATORVASTATIN] Propensity to adverse reactions to drug 08-20-20 15 Other (See Comments) [facility] Work Phone: (20 sources) cefuroxime; Translations: [CEFUROXIME] Propensity to adverse reactions to drug 08-20-20 15 Other [facility] Work Phone: (20 sources) ezetimibe; Translations: [EZETIMIBE] Propensity to adverse reactions to drug 08-20-20 15 [facility] Work Phone: (20 sources) tetracycline; Translations: [TETRACYCLINE] Propensity to adverse reactions to drug 08-20-20 15 Itching [facility] Work Phone: (11 sources) ADHESIVE TAPE-SILICONES; Translations: [ADHESIVE TAPE-SILICONES] Propensity to adverse reactions to drug 12-13-19 18 Other (See Comments) [facility] Work Phone: (6 sources) Acetaminophen Drug Allergy 04-03-20 21 Vomiting [facility] (20 sources) oxyCODONE Drug Allergy 01-18-20 20 Vomiting [facility] Work Phone: (18 sources) atorvastatin Drug Allergy 10-27-20 [facility] (8 sources) Rosuvastatin calcium; Translations: [ROSUVASTATIN] Propensity to adverse reactions 10-27-20 [facility] (19 sources) sacubitril / valsartan; Translations: [SACUBITRIL-VALSA RTAN] Drug Allergy 10-27-20 22 Nausea And Vomiting [facility] (18 sources) Tetracycline (class of antibiotic) Drug Intolerance 08-20-20 15 [facility] (14 sources) Acetaminophen Drug Allergy 01-18-20 20 Nausea And Vomiting [facility] (11 sources) rosuvastatin Drug Allergy 10-27-20 22 [facility] (9 sources) Lisinopril; Translations: [LISINOPRIL] Drug Allergy 01-08-20 24 [facility] Repository (1 source) Acetaminophen Drug Allergy 11-02-20 [facility] Repository (1 source) Cefuroxime Drug Allergy 11-02-20 [facility] Repository (1 source) oxyCODONE Drug Allergy 11-02-20 [facility] Repository (1 source) Tetracycline Drug Allergy 11-02-20 [facility] Repository Medications Current Medications Medication Drug Class(es) Dates Sig (Normalized) Sig (Original) Accu-Chek Softclix Lancets (4 sources) Start: 04-01-2017 ACCU-CHEK SOFTCLIX LANCETS lancets USE 1 EVERY DAY ( ONE TIME DAILY ) 100 each 3 04/01/2017 Active ACCU-CHEK SOFTCLIX LANCETS lancets (17 sources) Start: 04-01-2017 ACCU-CHEK SOFTCLIX LANCETS lancets USE 1 EVERY DAY ( ONE TIME DAILY ) 100 each 3 04/01/2017 Active Acetaminophen (1 source) Start: 04-04-2021 acetaminophen (TYLENOL) tablet 650 mg aspirin 81 mg oral tablet (10 sources) Platelet Aggregation Inhibitor, Nonsteroidal Anti-inflammatory Drug Start: 06-10-2021 take 1 tablet by mouth once daily Aspirin 81 mg Tablet Active 81 mg PO DAILY June 10, 2021 12:00am Start: 04-10-2021 take 81 mg by mouth once daily 81 mg, Oral, DAILY, First dose on Wed04/29/21 at 1145 Do not crush or break. Start: 04-10-2021 take 1 tablet by mouth once da jas aspirin 81 MG EC tablet Take 1 tablet by mouth daily 30 tablet 3 04/10/2021 Active Start: 04-05-2021 aspirin EC tab let 81 mg augmented betamethasone 0.5 mg/ml topical cream (8 sources) Corticosteroid Start: 04-12-2024 betamethasone, augmented, (Diprolene AF) 0.05 % cream Apply topically daily. 04/12/2024 Active blood sugar diagnostic strips (17 sources) Start: 03-17-2016 blood sugar diagnostic strips by Miscellaneous route 2 (two) times a day Accu Chek Ashley Plus. 100 strip 1 03/17/2016 Active Blood Sugar Diagnostic Strips (4 sources) Start: 03-17-2016 blood sugar diagnostic strips by Miscellaneous route 2 (two) times a day Accu Chek Ashley Plus. 100 strip 1 03/17/2016 Active Blood-Glucose Meter (4 sources) Start: 11-01-2015 blood-glucose meter [facility] [place]ications: Type 2 diabetes mellitus without complication (HCC) Accucheck/ E11.9 1 each 0 11/01/2015 Active blood-glucose meter Mis (18 sources) Start: 11-01-2015 blood-glucose meter [facility] [place] Indications: Type 2 diabetes mellitus without complication (HCC) Accucheck/ E11.9 1 each 0 11/01/2015 Active carvedilol 12.5 mg oral tablet (20 sources) alpha-Adrenergic Laurel, beta-Adrenergic Laurel Start: 06-10-2021 End: 10-06-2025 take 1 tablet by mouth in the morning carvedilol (Coreg) 12.5 MG tablet Indications: 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 Take 1 tablet (12.5 mg) by mouth in the morning and 1 tablet (12.5 mg) in the evening. Take with meals. 180 tablet 2 03/28/2025 4:07 PM EDT 12/08/2024 10/06/2025 Active Start: 04-06-2021 take 12.5 mg by mout h twice daily at mealtime 12.5 mg, Oral, 2 TIMES DAILY WITH MEALS, First dose on Wed04/29/21 at 1145 Administer with food to minimize the risk of orthostatic hypotension Start: 11-02-2016 End: 04-09-2021 take 1 tablet by mouth twice daily Carvedilol 6.25 MG tablet Active 6.25 mg PO TWICE A DAY February 10, 2019 12:00am cholecalciferol 0.01 mg oral tablet (20 sources) Vitamin D Start: 04-29-2021 take 400 [IU] by mouth once daily 400 Units, Oral, DAILY, First dose on Wed04/29/21 at 1145 Start: 01-18-2020 take 1 tablet by meghna th once daily Cholecalciferol (Vitamin D3) (Vitamin D3) 10 mcg (400 unit) tablet Active 1000 U PO DAILY January 18, 2020 1:00am clopidogrel 75 mg oral tablet (20 sources) [id number] Platelet Inhibitor Start: 07-07-2022 End: 03-03-2026 take 1 tablet by mouth once daily in the morning clopidogrel (Plavix) 75 MG tablet Indications: 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 Take 1 tablet (75 mg) by mouth daily. 90 tablet 3 05/24/2025 8:59 AM EDT 03/08/2025 03/03/2026 Active dapagliflozin 10 mg oral tablet (1 source) Sodium-Glucose Cotransporter 2 Inhibitor Start: 04-07-2021 dapagliflozin (FARXIGA) tablet 10 mg empagliflozin 10 mg oral tablet (20 sources) Sodium-Glucose Cotransporter 2 Inhibitor Start: 06-10-2021 End: 06-27-2026 take 1 tablet by mouth once daily empagliflozin (Jardiance) 10 MG Indications: Chronic systolic congestive heart failure (HCC) TAKE 1 TABLET BY MOUTH DAILY 90 tablet 2 06/27/2025 06/27/2026 Active Start: 04-15-2021 take 1 tablet by mouth once da jas 10 mg (1 tablet), Oral, DAILY, First dose on Wed04/29/21 at 1145 0.4 ml enoxaparin sodium 100 mg/ml prefilled syringe (1 source) Low Molecular Weight Heparin Start: 04-08-2021 enoxaparin (LOVENOX) injection 40 mg glimepiride 4 mg oral tablet (20 sources) Sulfonylurea Start: 11-02-2016 End: 07-26-2023 take 1 tablet by mouth once daily Glimepiride 4 MG tablet Active 4 mg PO DAILY February 10, 2019 12:00am glucagon (rdna) 1 mg injection (1 source) Antihypoglycemic Agent Start: 04-04-2021 glucagon (rDNA) injection 1 mg 150 ml glucose 50 mg/ml injection (3 sources) Start: 04-04-2021 glucose (GLUTOSE) 40 % oral gel 15 g Start: 04-04-2021 dextrose 50 % IV solution Start: 04-04-2021 dextrose 5 % s olution insulin aspart protamine, human 70 unt/ml / insulin aspart, human 30 unt/ml injectable suspension (14 sources) Insulin Analog insulin aspart protamine-insulin aspart (NovoLOG Mix 70-30) (70-30) 100 UNIT/ML injection Inject 45 Units under the skin. Active insulin glargine 100 unt/ml injectable solution (20 sources) Insulin Analogue Start: 04-08-2021 insulin glargine (LANTUS) injection vial 25 Units Start: 06-10-2018 inject 50 [IU] by corey bcutaneous injection once daily Insulin Glargine 100 UNIT/ML solution Active 50 U SQ DAILY February 10, 2019 12:00am Start: 06-10-2018 End: 07-26-2023 insulin glargine (Lantus) 10 0 UNIT/ML injection Inject 50 Units under the skin. 0 06/10/2018 07/26/2023 Discontinued (Therapy completed) Start: 12-13-2017 End: 06-10-2018 insulin glargine (LANTUS U-1 00 INSULIN) 100 unit/mL injection Indications: Type 2 diabetes mellitus without complication, with long-term current use of insulin (HCC) Inject 50 (fifty) Units under the skin nightly. 50 mL 3 06/10/2018 Active Start: 12-11-2017 End: 12-13-2017 LANTUS 100 unit/mL injection Indications: Type 2 diabetes mellitus without complication, with long-term current use of insulin (HCC) INJECT 50 UNITS UNDER THE SKIN EVERY NIGHT . 50 mL 3 12/11/2017 12/13/2017 Discontinued Start: 12-11-2017 LANTUS 100 uni t/mL injection Indications: Type 2 diabetes mellitus without complication, with long-term current use of insulin (HCC) INJECT 50 UNITS UNDER THE SKIN EVERY NIGHT . 50 mL 3 12/11/2017 Active Start: 11-05-2017 End: 12-08-2017 insulin glargine (LANTUS) 10 0 unit/mL injection Indications: Type 2 diabetes mellitus without complication, with long-term current use of insulin (HCC) Inject 50 (fifty) Units under the skin every morning. 10 mL 0 11/05/2017 12/08/2017 Discontinued Start: 09-08-2017 End: 10-06-2017 insulin glargine (LANTUS) 10 0 unit/mL injection Indications: Type 2 diabetes mellitus without complication, with long-term current use of insulin (HCC) As directed. 10 mL 0 09/08/2017 10/06/2017 Discontinued Start: 07-01-2017 insulin glargi ne (LANTUS) 100 unit/mL injection Indications: Type 2 diabetes mellitus without complication, with long-term current use of insulin (HCC) As directed. 10 mL 12 07/01/2017 Active Start: 11-02-2016 End: 11-02-2017 insulin glargine (LANTUS) 10 0 unit/mL injection Indications: Type 2 diabetes mellitus without complication, with long-term current use of insulin (HCC) Inject 50 Units under the skin nightly. 30 mL 3 11/02/2016 11/02/2017 Active insulin lispro 100 unt/ml injectable solution (2 sources) Insulin Analog Start: 04-04-2021 insulin lispro (HUMALOG) injection vial 0-6 Units insulin syringes, disposable, 1 mL Syrg (16 sources) Start: 12-11-2015 insulin syring es, disposable, 1 mL Syrg Indications: Type 2 diabetes mellitus without complication (HCC) 1 each by Miscellaneous route 3 (three) times a day BD syr 30 g x 1/2 500 each 3 12/11/2015 Active insulin syringes , disposable, 1 mL Syrg by Miscellaneous route. 0 Active insulin syringes , disposable, 1 mL Syrg by Miscellaneous route. Active insulin aspart, human 100 unt/ml injectable solution (20 sources) Insulin Analogue Start: 06-10-2021 Insulin Aspar t U-100 (Novolog U-100 Insulin Aspart) 100 unit/mL Solution Active June 10, 2021 12:00am Start: 04-04-2021 Insulin Aspart U-100 (Novolog Flexpen U-100 Insulin) 100 unit/mL (3 mL) Insulin Pen Active 20 U SC TWICE A DAY April 04, 2021 12:00am pt takes with lunch and dinner Start: 04-17-2019 inject 20 [IU] by corey bcutaneous injection in the morning, then inject 25 [IU] by subcutaneous injection in the evening Insulin Aspart 100 UNIT/ML solution INJECT 20 UNITS SUBCUTANEOUSLY IN THE MORNING AND 25 UNITS IN THE EVENING . 04/17/2019 Active Start: 12-13-2017 End: 06-10-2018 insulin aspart U-100 (NovoLO G U-100 Insulin aspart) 100 unit/mL injection Inject 20 units subcu in the am and 25 units subcu in the evening.. 40 mL 1 06/10/2018 Active Start: 12-11-2017 End: 12-13-2017 NOVOLOG 100 unit/mL injectio n INJECT 20 UNITS SUBCUTANEOUSLY IN THE MORNING AND 25 UNITS IN THE EVENING 40 mL 3 12/11/2017 12/13/2017 Discontinued Start: 12-11-2017 NOVOLOG 100 un it/mL injection INJECT 20 UNITS SUBCUTANEOUSLY IN THE MORNING AND 25 UNITS IN THE EVENING 40 mL 3 12/11/2017 Active Start: 07-01-2017 End: 10-06-2017 NovoLOG (SAMPLE) 100 unit/mL injection Indications: Type 2 diabetes mellitus without complication, with long-term current use of insulin (HCC) As directed. 30 mL 0 07/01/2017 10/06/2017 Discontinued Start: 11-02-2016 End: 12-08-2017 insulin aspart (NOVOLOG) 100 unit/mL Indications: Type 2 diabetes mellitus without complication, with long-term current use of insulin (HCC) 20 units am, 25 units pm Disp 90 day supply. 9 mL 3 11/02/2016 12/08/2017 Discontinued Insulin Aspart ( NOVOLOG SC) Inject 45 Units into the skin Daily with supper 0 Active ketorolac tromethamine 5 mg/ml ophthalmic solution (16 sources) Nonsteroidal Anti-inflammatory Drug, Cyclooxygenase Inhibitor Start: 12-13-2017 ketorolac (ACUL AR) 0.5 % ophthalmic solution DIRECTED BY PHYSICIAN. 5 mL 0 12/13/2017 Active Start: 12-13-2017 End: 12-13-2017 ketorolac (ACULAR) 0.5 % oph thalmic solution 1 drop 1 drop, Left Eye, Every 10 min, First dose on Wed12/13/17 at 0715, For 4 doses, Pre-Procedure, One drop to involved eye every 10 minutes times 4, start 60 min pre-op. At home, use as directed by physician. Given 12/13/2017 06:30 EST 1 drop Start: 11-15-2017 End: 01-14-2018 ketorolac (ACULAR) 0.5 % oph thalmic solution DIRECTED BY PHYSICIAN. 5 mL 0 12/13/2017 Active Start: 11-15-2017 End: 11-15-2017 ketorolac (ACULAR) 0.5 % oph thalmic solution 1 drop 1 drop, Right Eye, Every 10 min, First dose on Wed11/15/17 at 0645, For 4 doses, Pre-Procedure, One drop to involved eye every 10 minutes times 4, start 60 min pre-op. To be dispensed with patient Given 11/15/2017 10:48 EST 1 drop Lancing Device (4 sources) Start: 03-25-2017 lancing device Misc Indications: Controlled type 2 diabetes mellitus without complication, with long-term current use of insulin (HCC) 1 each by Miscellaneous route 3 (three) times a day. 300 each 3 03/25/2017 Active lancing device Misc (18 sources) Start: 03-25-2017 lancing device Misc Indications: Controlled type 2 diabetes mellitus without complication, with long-term current use of insulin (HCC) 1 each by Miscellaneous route 3 (three) times a day. 300 each 3 03/25/2017 Active Lantus U-100 Insulin (6 sources) Start: 06-10-2021 Lantus U-100 I nsulin Active June 09, 2021 11:00pm Start: 06-10-2021 Lantus U-100 I nsulin Active June 10, 2021 12:00am losartan potassium 25 mg oral tablet (17 sources) Angiotensin 2 Receptor [place]urel Start: 07-26-2023 End: 07-24-2025 take 1 tablet by mouth once daily losartan (Cozaar) 25 MG tablet Take 1 tablet (25 mg) by mouth daily. 90 tablet 3 07/24/2024 07/24/2025 Active Start: 04-22-2021 take 50 mg by mouth once daily 50 mg, Oral, DAILY, First dose on Wed04/29/21 at 1145 Mag Rg-Ngicwqt-Oblqbitnp-E-B il (5 sources) Start: 06-10-2021 Mag Ox-Calcium -Cbicfcfsz-V-Oqx Active 400 PO June 09, 2021 11:00pm Start: 06-10-2021 Mag Ox-Calcium -Ouynnlrwu-X-Oho Active 400 PO June 10, 2021 12:00am Mag Kv-Tndlmvo-Bzuxkmuqx-E-B il 300 mg-600 mg- 100 mg/15 mL Suspension (1 source) Start: 06-10-2021 Mag Je-Jgloyuf-Vupwsisus-E-Jigar 300 mg-600 mg- 100 mg/15 mL Suspension Active 400 PO June 10, 2021 12:00am Magnesium (6 sources) Start: 02-10-2019 take 2 tablets by mouth once daily Magnesium 200 MG tablet Active 400 mg PO DAILY February 10, 2019 12:00am Start: 02-10-2019 take 400 mg by mouth once yandy y Magnesium Active 400 MG PO DAILY February 09, 2019 11:00pm Start: 02-10-2019 take 400 mg by mouth once yandy y Magnesium Active 400 MG PO DAILY February 10, 2019 12:00am magnesium oxide 400 mg oral tablet (20 sources) Start: 04-29-2021 take 400 mg by mouth once daily 400 mg, Oral, DAILY, First dose on Wed04/29/21 at 1145 melatonin 3 mg oral tablet (1 source) Start: 04-04-2021 melatonin tabl et 6 mg metFORMIN hydrochloride 1000 mg oral tablet (20 sources) Biguanide Start: 05-02-2021 metFORMIN (Glucophage) 1000 MG tablet Take 1,000 mg by mouth. 05/02/2021 Active Start: 05-02-2021 metFORMIN (GLU COPHAGE) 1000 MG tablet Take 1 tablet by mouth 2 times daily (with meals) HOLD UNTIL WednesdayAPRIL 11, THEN RESTART 60 tablet 3 05/02/2021 Active Start: 02-10-2019 End: 04-29-2021 take 1 tablet by mouth twice daily in the morning Metformin 1,000 MG tablet Active 1000 mg PO TWICE A DAY February 10, 2019 12:00am pt takes in the morning and at lunch Start: 11-02-2016 End: 06-10-2018 take 4 tablets by mouth once daily metFORMIN (GLUCOPHAGE-XR) 500 MG 24 hr tablet Indications: Type 2 diabetes mellitus without complication, with long-term current use of insulin (HCC) Take 4 (four) tablets (2,000 mg total) by mouth daily. 360 tablet 1 06/10/2018 Active moxifloxacin 5 mg/ml ophthalmic solution (11 sources) Quinolone Antimicrobial Start: 12-13-2017 End: 12-28-2017 moxifloxacin (VIGAMOX) 0.5 % ophthalmic solution DIRECTED BY PHYSICIAN. 3 mL 0 12/14/2017 12/28/2017 Active Start: 12-13-2017 End: 12-13-2017 moxifloxacin (VIGAMOX) 0.5 % ophthalmic solution 1 drop 1 drop, Left Eye, Every 10 min, First dose on 12/13/17 at 0715, For 4 doses, Pre-Procedure, One drop to involved eye every 10 minutes times 4, start 60 min pre-op. At home, use as directed by physician. Given 12/13/2017 06:30 EST 1 drop Start: 11-15-2017 End: 11-30-2017 moxifloxacin (VIGAMOX) 0.5 % ophthalmic solution DIRECTED BY PHYSICIAN. 3 mL 0 11/16/2017 11/30/2017 Active Start: 11-15-2017 End: 11-15-2017 moxifloxacin (VIGAMOX) 0.5 % ophthalmic solution 1 drop 1 drop, Right Eye, Every 10 min, First dose on 11/15/17 at 0645, For 4 doses, Pre-Procedure, One drop to involved eye every 10 minutes times 4, start 60 min pre-op. To be dispensed with patient Given 11/15/2017 10:49 EST 1 drop nitroglycerin 0.4 mg sublingual tablet (14 sources) Nitrate Vasodilator Start: 06-10-2021 Nitroglyce rin (Nitrostat) 0.4 mg Tablet, Sublingual Active 0.4 MG SL Q5M June 09, 2021 11:00pm Start: 04-09-2021 End: 07-26-2023 Nitroglycerin (Nitrostat) 0. 4 mg Tablet, Sublingual Active 0.4 mg SL Q5M as needed for Chest Pain June 10, 2021 12:00am pantoprazole 40 mg delayed release oral tablet (20 sources) Proton Pump Inhibitor Start: 06-10-2021 End: 07-26-2023 take 1 tablet by mouth once daily before breakfast pantoprazole (ProtoNix) 40 MG EC tablet TAKE 1 TABLET BY MOUTH EVERY MORNING (BEFORE BREAKFAST) 90 tablet 3 04/13/2023 11:15 AM EDT 07/22/2022 Active Start: 04-30-2021 take 40 mg by mouth once daily before breakfast 40 mg, Oral, DAILY BEFORE BREAKFAST, First dose on Wed04/30/21 at 0700 Do not crush or break. Start: 04-10-2021 take 1 tablet by meghna th once daily before breakfast pantoprazole (PROTONIX) 40 MG tablet Take 1 tablet by mouth every morning (before breakfast) 30 tablet 3 04/10/2021 Active Start: 04-10-2021 take 1 tablet by meghna th once daily before breakfast pantoprazole (PROTONIX) 40 MG tablet Take 1 tablet by mouth every morning (before breakfast) 30 tablet 3 04/10/2021 Active Start: 04-09-2021 pantoprazole ( PROTONIX) tablet 40 mg polyethylene glycol [id number] [id number] mg powder for oral solution (1 source) Osmotic Laxative Start: 04-04-2021 polyethylene glycol (GLYCOLAX) packet 17 g pravastatin sodium 40 mg oral tablet (19 sources) HMG-CoA Reductase Inhibitor Start: 10-05-2022 End: 12-08-2025 take 1 tablet by mouth once daily in the evening pravastatin (Pravachol) 40 MG tablet Indications: 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 Take 1 tablet (40 mg) by mouth daily. 90 tablet 2 03/28/2025 4:07 PM EDT 12/08/2024 12/08/2025 Active prednisoLONE acetate 10 mg/ml ophthalmic suspension (16 sources) Corticosteroid Start: 12-13-2017 prednisoLONE acetate (PRED FORTE) 1 % ophthalmic suspension DIRECTED BY PHYSICIAN. 5 mL 0 12/13/2017 Active Start: 12-13-2017 End: 12-13-2017 prednisoLONE acetate (PRED F ORTE) 1 % ophthalmic suspension 1 drop 1 drop, Left Eye, Every 10 min, First dose on Wed12/13/17 at 0715, For 4 doses, Pre-Procedure, One drop to involved eye every 10 minutes times 4, start 60 min pre-op. At home, use as directed by physician. Given 12/13/2017 06:30 EST 1 drop Start: 11-15-2017 End: 01-14-2018 prednisoLONE acetate (PRED F ORTE) 1 % ophthalmic suspension DIRECTED BY PHYSICIAN. 5 mL 0 12/13/2017 Active Start: 11-15-2017 End: 11-15-2017 prednisoLONE acetate (PRED F ORTE) 1 % ophthalmic suspension 1 drop 1 drop, Right Eye, Every 10 min, First dose on Wed11/15/17 at 0645, For 4 doses, Pre-Procedure, One drop to involved eye every 10 minutes times 4, start 60 min pre-op. To be dispensed with patient Given 11/15/2017 10:50 EST 1 drop Promethazine (1 source) Phenothiazine Start: 04-04-2021 promethazine (PHENERGAN) tablet 12.5 mg quinapril 10 mg oral tablet (20 sources) Angiotensin Converting Enzyme Inhibitor Start: 06-10-2018 End: 07-26-2023 take 1 tablet by mouth once daily Quinapril 10 MG tablet Active 10 mg PO DAILY February 10, 2019 12:00am Start: 11-06-2017 End: 06-10-2018 take 0.5 tablet by mouth once daily quinapril (ACCUPRIL) 20 MG tablet Indications: Essential hypertension with goal blood pressure less than 130/80 Take 0.5 (one-half) tablet (10 mg total) by mouth daily. 90 tablet 3 11/06/2017 06/10/2018 Discontinued Start: 08-02-2017 End: 11-06-2017 quinapril (ACCUPRIL) 20 MG t ablet Indications: Essential hypertension with goal blood pressure less than 130/80 TAKE 1 TABLET EVERY DAY 90 tablet 3 08/02/2017 11/06/2017 Discontinued Start: 11-02-2016 take 1 tablet by meghna th once daily quinapril (ACCUPRIL) 20 MG tablet Indications: Essential hypertension with goal blood pressure less than 130/80 Take 1 tablet (20 mg total) by mouth daily. 90 tablet 3 11/02/2016 Active rosuvastatin calcium 40 mg oral tablet (10 sources) HMG-CoA Reductase Inhibitor Start: 06-10-2021 take 1 tablet by mouth once daily Rosuvastatin (Crestor) 40 mg Tablet Active 40 mg PO DAILY June 10, 2021 12:00am Start: 04-29-2021 take 40 mg by mouth once daily 40 mg, Oral, NIGHTLY, First dose on Wed04/29/21 at 2100 Start: 04-09-2021 take 1 tablet by meghna th once daily rosuvastatin (CRESTOR) 40 MG tablet Take 1 tablet by mouth nightly 30 tablet 3 04/09/2021 Active Start: 04-07-2021 rosuvastatin ( CRESTOR) tablet 40 mg sacubitril 24 mg / valsartan 26 mg oral tablet (2 sources) Angiotensin 2 Receptor [place] Start: 04-09-2021 take 24-26 mg by mouth once sacubitril-valsartan (ENTRESTO) 24-26 MG per tablet Take 1 tablet by mouth 2 times daily 60 tablet 0 04/09/2021 Active Start: 04-08-2021 sacubitril-bryant sartan (ENTRESTO) 24-26 MG per tablet 1 tablet 0.25 mg, 0.5 mg dose 1.5 ml semaglutide 1.34 mg/ml pen injector (1 source) Start: 09-24-2023 inject 0.5 mg by subcutaneous injection every week semaglutide (Ozempic, 0.25 or 0.5 MG/DOSE,) 2 MG/1.5ML solution pen-injector Inject 0.5 mg under the skin 1 (one) time per week. 1 each 09/24/2023 Active semaglutide (Ozempic, 1 MG/DOSE,) 4 MG/3ML solution pen-injector (1 source) Start: 07-02-2025 inject 1 mg by subcutaneous injection every week semaglutide (Ozempic, 1 MG/DOSE,) 4 MG/3ML solution pen-injector Inject 1 mg under the skin 1 (one) time per week. 3 mL 07/02/2025 Active Semglee, yfgn, 100 UNIT/ML solution (14 sources) Start: 06-07-2023 inject 50 [IU] by subcutaneous injection every twenty-four hours as needed Semglee, yfgn, 100 UNIT/ML solution 50 Units by Subcutaneous Infusion route Daily as needed. 06/07/2023 Active Start: 06-07-2023 inject 50 [IU] by corey bcutaneous injection every twenty-four hours as needed Semglee, yfgn, 100 UNIT/ML solution 50 Units by Subcutaneous Infusion route Daily as needed. 0 06/07/2023 Active spironolactone 25 mg oral tablet (20 sources) Aldosterone Antagonist Start: 06-10-2021 End: 10-06-2025 take 1 tablet by mouth once daily in the evening spironolactone (Aldactone) 25 MG tablet Indications: 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 Take 1 tablet (25 mg) by mouth daily. 90 tablet 2 03/28/2025 4:07 PM EDT 12/08/2024 10/06/2025 Active Start: 04-30-2021 take 25 mg by mouth once daily 25 mg, Oral, DAILY, First dose on Wed04/30/21 at 0900 Start: 04-10-2021 take 1 tablet by meghna once daily spironolactone (ALDACTONE) 25 MG tablet Take 1 tablet by mouth daily 30 tablet 3 04/10/2021 Active Start: 04-10-2021 take 1 tablet by meghna th once daily spironolactone (ALDACTONE) 25 MG tablet Take 1 tablet by mouth daily 30 tablet 3 04/10/2021 Active Start: 04-06-2021 spironolactone (ALDACTONE) tablet 25 mg ticagrelor 90 mg oral tablet (10 sources) Start: 06-10-2021 take 1 tablet by mouth twice daily Ticagrelor (Brilinta) 90 mg Tablet Active 90 mg PO TWICE A DAY June 10, 2021 12:00am Start: 04-08-2021 take 90 mg by mouth twice daily 90 mg, Oral, 2 TIMES DAILY, First dose on Wed04/29/21 at 1145 ANTIPLATELET! Completed/Discontinued Medications Medication Drug Class(es) Dates Sig (Normalized) Sig (Original) acetaZOLAMIDE 250 mg oral tablet (1 source) Carbonic Anhydrase Inhibitor Start: 11-15-2017 End: 11-15-2017 take 1 tablet by mouth once acetaZOLAMIDE (DIAMOX) tablet 250 mg 250 mg, Oral, Once, 11/15/17 at 1315, For 1 dose Given 11/15/2017 12:23 EST 250 mg Start: 11-15-2017 End: 11-15-2017 take 1 tablet by mouth once acetaZOLAMIDE (DIAMOX) tab let 250 mg 250 mg, Oral, Once, 11/15/17 at 1315, For 1 dose Given 11/15/2017 12:23 EST 250 mg amoxicillin 875 mg / clavulanate 125 mg oral tablet (12 sources) Penicillin-class Antibacterial Start: 02-10-2019 End: 03-17-2019 Amoxicillin-Pot Clavulanate 875-125 MG tablet Discontinued 1 {tbl} PO TWICE A DAY February 10, 2019 12:00am March 17, 2019 8:37am Start: 02-10-2019 End: 03-17-2019 take 1 tablet by mouth twice daily Amoxicillin-Pot Clavulanate Discontinued 1 TABLET PO TWICE A DAY February 09, 2019 11:00pm March 17, 2019 7:37am calcium chloride 0.0014 meq/ml / potassium chloride 0.004 meq/ml / sodium chloride 0.103 meq/ml / sodium lactate 0.028 meq/ml injectable solution (2 sources) Start: 12-13-2017 End: 12-13-2017 take 50 mL intravenous route every hour lactated Ringers infusion 50 mL/hr, Intravenous, Continuous, Starting 12/13/17 at 0715, Pre-Procedure New Bag 12/13/2017 06:45 EST 50 mL/hr 50 mL/hr Start: 11-15-2017 End: 11-15-2017 take 50 mL intravenous route every hour lactated Ringers infusion 50 mL/hr, Intravenous, Continuous, Starting 11/15/17 at 0645, Pre-Procedure New Bag 11/15/2017 10:36 EST 50 mL/hr 50 mL/hr collagenase 0.25 unt/mg topical ointment (4 sources) Collagen-specific Enzyme Start: 09-12-2022 End: 07-26-2023 Santyl 250 UNIT/GM ointment APPLY A AMBROCIO THICK AMOUNT OF OINTMENT TO THE WOUND DAILY 0 09/12/2022 07/26/2023 Discontinued (Therapy completed) cyclopentolate hydrochloride 20 mg/ml ophthalmic solution (6 sources) Start: 12-13-2017 End: 12-13-2017 cyclopentolate (CYCLOGYL) 2 % ophthalmic solution DIRECTED BY PHYSICIAN. 2 mL 0 12/13/2017 12/13/2017 Discontinued Start: 12-13-2017 End: 12-13-2017 cyclopentolate (CYCLOGYL) 2 % ophthalmic solution 1 drop 1 drop, Left Eye, Every 10 min, First dose on Wed12/13/17 at 0715, For 4 doses, Pre-Procedure, One drop to involved eye every 10 minutes times 4, start 60 min pre-op. At home, use as directed by physician. Given 12/13/2017 06:30 EST 1 drop Start: 11-15-2017 End: 11-15-2017 cyclopentolate (CYCLOGYL) 2 % ophthalmic solution DIRECTED BY PHYSICIAN. 2 mL 0 11/15/2017 11/15/2017 Discontinued Start: 11-15-2017 End: 11-15-2017 cyclopentolate (CYCLOGYL) 2 % ophthalmic solution 1 drop 1 drop, Right Eye, Every 10 min, First dose on 11/15/17 at 0645, For 4 doses, Pre-Procedure, One drop to involved eye every 10 minutes times 4, start 60 min pre-op. To be dispensed with patient Given 11/15/2017 10:48 EST 1 drop gadobutrol (GADAVIST) injection 12 mL (1 source) Start: 04-07-2021 End: 04-07-2021 gadobutrol (GADAVIST) injection 12 mL glipiZIDE 5 mg oral tablet (1 source) Sulfonylurea Start: 06-21-2023 End: 07-26-2023 take 1 tablet by mouth once daily glipiZIDE (Glucotrol) 5 MG tablet Take 5 mg by mouth daily. 0 06/21/2023 07/26/2023 Discontinued 1 ml heparin sodium, porcine 1000 unt/ml injection (4 sources) Unfractionated Heparin, Anti-coagulant Start: 04-04-2021 heparin (porcine) injection 2,000 Units Start: 04-04-2021 End: 04-07-2021 heparin 25,000 units in dext marian 5% 250 mL (premix) infusion Start: 04-04-2021 End: 04-04-2021 heparin (porcine) injection 4,000 Units Insulin Syringes (Disposable ) 1 Ml (5 sources) Start: 12-11-2015 End: 10-06-2017 insulin syringes, disposable , 1 mL Syrg Indications: Type 2 diabetes mellitus without complication (HCC) 1 each by Miscellaneous route 3 (three) times a day BD syr 30 g x 1/2 500 each 3 12/11/2015 10/06/2017 Discontinued insulin syringes , disposable, 1 mL Syrg by Miscellaneous route. Active 10 ml lidocaine hydrochloride 10 mg/ml injection (1 source) Antiarrhythmic, Amide Local Anesthetic Start: 12-13-2017 End: 12-13-2017 lidocaine 1% (XYLOCAINE) 10 mg/mL (1 %) injection 0.3 mL 0.3 mL, Intradermal, Once, 12/13/17 at 0715, For 1 dose, Pre-Procedure, For IV insertion, if not allergic. Given 12/13/2017 06:45 EST 0.3 mL Start: 12-13-2017 End: 12-13-2017 lidocaine 1% (XYLOCAINE) 10 mg/mL (1 %) injection 0.3 mL 0.3 mL, Intradermal, Once, 12/13/17 at 0715, For 1 dose, Pre-Procedure, For IV insertion, if not allergic. Given 12/13/2017 06:45 EST 0.3 mL 100 ml magnesium sulfate 40 mg/ml injection (1 source) Start: 04-04-2021 End: 04-05-2021 magnesium sulfate 4000 mg in 100 mL IVPB premix phenylephrine hydrochloride 25 mg/ml ophthalmic solution (6 sources) alpha-1 Adrenergic Agonist Start: 12-13-2017 End: 12-13-2017 phenylephrine (MYDFRIN) 2.5 % ophthalmic solution DIRECTED BY PHYSICIAN. 15 mL 0 12/13/2017 12/13/2017 Discontinued Start: 12-13-2017 End: 12-13-2017 phenylephrine (MYDFRIN) 2.5 % ophthalmic solution 1 drop 1 drop, Left Eye, Every 10 min, First dose on Wed12/13/17 at 0715, For 4 doses, Pre-Procedure, One drop to involved eye every 10 minutes times 4, start 60 min pre-op. At home, use as directed by physician. Given 12/13/2017 06:30 EST 1 drop Start: 11-15-2017 End: 11-15-2017 phenylephrine (MYDFRIN) 2.5 % ophthalmic solution DIRECTED BY PHYSICIAN. 15 mL 0 11/15/2017 11/15/2017 Discontinued Start: 11-15-2017 End: 11-15-2017 phenylephrine (MYDFRIN) 2.5 % ophthalmic solution 1 drop 1 drop, Right Eye, Every 10 min, First dose on Wed11/15/17 at 0645, For 4 doses, Pre-Procedure, One drop to involved eye every 10 minutes times 4, start 60 min pre-op. To be dispensed with patient Given 11/15/2017 10:49 EST 1 drop microencapsulated potassium chloride 10 meq extended release oral tablet (2 sources) Start: 04-05-2021 End: 04-05-2021 potassium chloride (KLOR-CON M) extended release tablet 40 mEq Start: 04-04-2021 End: 04-04-2021 potassium chloride (KLOR-CON M) extended release tablet 40 mEq semaglutide (Ozempic, 0.25 or 0.5 MG/DOSE,) 2 MG/3ML solution pen-injector (20 sources) Start: 09-19-2024 End: 07-01-2025 inject 0.5 mg by subcutaneous injection every week semaglutide (Ozempic, 0.25 or 0.5 MG/DOSE,) 2 MG/3ML solution pen-injector Indications: Type 2 diabetes mellitus with hyperosmolarity without coma, without long-term current use of insulin (CMS/HCC) (HCC) Inject 0.5 mg under the skin 1 (one) time per week. 3 mL 11 06/20/2025 12:14 PM EDT 09/19/2024 07/01/2025 Discontinued Start: 09-19-2024 inject 0.5 mg by sub cutaneous injection every week semaglutide (Ozempic, 0.25 or 0.5 MG/DOSE,) 2 MG/3ML solution pen-injector Indications: Type 2 diabetes mellitus with hyperosmolarity without coma, without long-term current use of insulin (CMS/HCC) (HCC) Inject 0.5 mg under the skin 1 (one) time per week. 3 mL 06/20/2025 12:14 PM EDT 09/19/2024 Active Start: 09-19-2024 inject 0.5 mg by sub cutaneous injection every week in the morning semaglutide (Ozempic, 0.25 or 0.5 MG/DOSE,) 2 MG/3ML solution pen-injector Indications: Type 2 diabetes mellitus with hyperosmolarity without coma, without long-term current use of insulin (CMS/HCC) (HCC) Inject 0.5 mg under the skin 1 (one) time per week. 3 mL 02/07/2025 9:05 AM EDT 09/19/2024 Active Start: 09-19-2024 inject 0.5 mg by sub cutaneous injection every week semaglutide (Ozempic, 0.25 or 0.5 MG/DOSE,) 2 MG/3ML solution pen-injector Indications: Type 2 diabetes mellitus with hyperosmolarity without coma, without long-term current use of insulin (CMS/HCC) (HCC) Inject 0.5 mg under the skin 1 (one) time per week. 3 mL 11 11/16/2024 11:22 AM EST 09/19/2024 Active Start: 09-19-2024 inject 0.5 mg by sub cutaneous injection every week semaglutide (Ozempic, 0.25 or 0.5 MG/DOSE,) 2 MG/3ML solution pen-injector Indications: Type 2 diabetes mellitus with hyperosmolarity without coma, without long-term current use of insulin (CMS/HCC) (HCC) Inject 0.5 mg under the skin 1 (one) time per week. 3 mL 11 09/19/2024 Active Start: 09-24-2023 End: 09-19-2024 inject 0.5 mg by subcutaneous injection every week in the evening semaglutide (Ozempic, 0.25 or 0.5 MG/DOSE,) 2 MG/3ML solution pen-injector Inject 0.5 mg under the skin 1 (one) time per week. 3 mL 11 08/22/2024 4:30 PM EDT 09/24/2023 09/19/2024 Discontinued (Reorder) Start: 09-24-2023 inject 0.5 mg by sub cutaneous injection every week semaglutide (Ozempic, 0.25 or 0.5 MG/DOSE,) 2 MG/3ML solution pen-injector Inject 0.5 mg under the skin 1 (one) time per week. 3 mL 11 09/24/2023 Active Start: 08-10-2023 End: 06-24-2025 inject 0.25 mg by subcutaneous injection every week in the evening semaglutide (Ozempic, 0.25 or 0.5 MG/DOSE,) 2 MG/3ML solution pen-injector Inject 0.25 mg under the skin 1 (one) time per week. 1 each 1 09/23/2023 2:18 PM EDT 08/10/2023 06/24/2025 Discontinued Start: 08-10-2023 inject 0.25 mg by corey bcutaneous injection every week in the evening semaglutide (Ozempic, 0.25 or 0.5 MG/DOSE,) 2 MG/3ML solution pen-injector Inject 0.25 mg under the skin 1 (one) time per week. 1 each 1 09/23/2023 2:18 PM EDT 08/10/2023 Active Start: 08-10-2023 inject 0.25 mg by corey bcutaneous injection every week semaglutide (Ozempic, 0.25 or 0.5 MG/DOSE,) 2 MG/3ML solution pen-injector Inject 0.25 mg under the skin 1 (one) time per week. 1 each 1 08/10/2023 Active 1000 ml sodium chloride 9 mg /ml injection (13 sources) Start: 04-29-2021 sodium chlorid e flush 0.9 % injection 5-40 mL Start: 04-29-2021 End: 04-29-2021 0.9 % sodium chloride infusi on Start: 04-04-2021 0.9 % sodium c hloride infusion Start: 04-04-2021 sodium chlorid e flush 0.9 % injection 5-40 mL Problems Active Problems Problem Classification Problem Date Documented Date Episodic/Chronic Acute bronchitis (1 source) Acute bronchitis, unspecified; Translations: [Acute bronchitis, unspecified] Onset: 05-21-2025 Episodic Acute myocardial infarction (20 sources) Myocardial infarction; Translations: [Non-ST elevation (NSTEMI) myocardial infarction] Onset: 04-04-2021 Chronic Cataract (20 sources) Combined form of senile cataract; Translations: [Age-related cataract] Onset: 08-20-2015 Resolved: 12-14-2017 09-29-2016 Chronic Chronic ulcer of skin (12 sources) Disorder of abdominal wall; Translations: [Non-pressure chronic ulcer of skin of other sites with unspecified severity] Chronic Congestive heart failure; nonhypertensive (20 sources) Acute systolic heart failure; Translations: [Acute systolic (congestive) heart failure] Onset: 04-04-2021 Chronic Coronary atherosclerosis and other heart disease (20 sources) Ischemic myocardial dysfunction; Translations: [Ischemic cardiomyopathy] Onset: 04-29-2021 Chronic Coronary atherosclerosis and other heart disease (7 sources) Patient post percutaneous transluminal coronary angioplasty; Translations: [Coronary angioplasty status] Episodic Diabetes mellitus with complications (2 sources) Type 2 diabetes mellitus with hyperosmolarity without nonketotic hyperglycemic-hyperos molar coma ([facility]); Translations: [Type 2 diabetes mellitus with hyperosmolarity without nonketotic hyperglycemic-hyperos molar coma ([facility]) ([facility])] Onset: 10-27-2022 Chronic Diabetes mellitus without complication (20 sources) Type 2 diabetes mellitus; Translations: [Type 2 diabetes mellitus without complications] Onset: 11-14-2001 08-20-2015 Chronic Disorders of lipid metabolism (20 sources) Hyperlipidemia; Translations: [Other hyperlipidemia] Onset: 04-08-2021 Chronic Essential hypertension (20 sources) Hypertensive disorder; Translations: [Essential hypertension] Onset: 11-01-2015 11-01-2015 Chronic Glaucoma (20 sources) Borderline glaucoma; 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, bilateral] Onset: 08-21-2015 08-21-2015 Chronic Hypertension with complications and secondary hypertension (8 sources) Hypertensive heart failure; Translations: [Hypertensive heart disease with heart failure] Onset: 04-04-2021 07-26-2024 Chronic Intracranial injury (3 sources) Concussion with no loss of consciousness; Translations: [Concussion without loss of consciousness, initial encounter] 11-10-2022 Episodic Osteoarthritis (20 sources) Arthritis; Translations: [Unspecified osteoarthritis, unspecified site] Onset: 04-04-2021 04-04-2021 Chronic Other and unspecified benign neoplasm (6 sources) Benign neoplasm of unspecified adrenal gland; Translations: [Benign neoplasm of adrenal gland] Episodic Other connective tissue disease (1 source) H/O: back problem; Translations: [Personal history of other diseases of the musculoskeletal system and connective tissue] 04-04-2021 Episodic Other eye disorders (14 sources) Pseudophakia; Translations: [Pseudophakia] Onset: 11-16-2017 11-16-2017 Chronic Other eye disorders (6 sources) Cataract extraction status, unspecified eye; Translations: [Cataract extraction status] Episodic Other injuries and conditions due to external causes (3 sources) At low risk for fall; Translations: [History of falling] Onset: 06-10-2018 Episodic Other lower respiratory disease (6 sources) H/O: respiratory disease; Translations: [Personal history of other diseases of the respiratory system] 09-01-2022 Episodic Other lower respiratory disease (6 sources) Personal history of other diseases of the respiratory system; Translations: [Personal history of other diseases of respiratory system] Episodic Residual codes; unclassified (6 sources) History of repair of umbilical hernia; Translations: [Other specified postprocedural states] 09-01-2022 Episodic Residual codes; unclassified (6 sources) H/O Spinal surgery; Translations: [Other specified postprocedural states] 09-01-2022 Episodic Residual codes; unclassified (12 sources) Other specified postprocedural states; Translations: [Other postprocedural status] Episodic Residual codes; unclassified (6 sources) Acquired absence of both cervix and uterus; Translations: [Acquired absence of both cervix and uterus] Episodic Residual codes; unclassified (3 sources) Left against medical advice; Translations: [Procedure and treatment not carried out because of patient's decision for other reasons] 11-10-2022 Episodic Residual codes; unclassified (1 source) Asymptomatic menopausal state; Translations: [Asymptomatic menopausal state] Onset: 06-28-2025 Episodic Respiratory failure; insufficiency; arrest (adult) (6 sources) Acute hypoxemic respiratory failure; Translations: [Acute respiratory failure with hypoxia] 04-04-2021 Episodic Unclassified (2 sources) Unknown / UNK(Unknown) Onset: 11-15-2017 Unclassified (2 sources) Other specified postprocedural states; Translations: [Other specified postprocedural states] Onset: 11-16-2017 Unclassified (18 sources) History of back problems; Translations: [Other] Onset: 04-04-2021 09-15-2022 Past or Other Problems Problem Classification Problem Date Documented Da te Episodic/Chronic Cancer of ovary (20 sources) History of malignant neoplasm of ovary; Translations: [Personal history of malignant neoplasm of ovary] Onset: 04-04-2021 04-04-2021 Episodic Immunizations and screening for infectious disease (2 sources) Encounter for screening for other viral diseases; Translations: [Encounter for screening for other viral diseases] Onset: 09-06-2017 Episodic Medical examination/evaluation (4 sources) Encounter for other preprocedural examination; Translations: [Encounter for other preprocedural examination] Onset: 11-05-2017 Episodic Other aftercare (4 sources) 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; Translations: [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] Onset: 08-20-2015 Episodic Other and unspecified benign neoplasm (20 sources) Adrenal adenoma; Translations: [Benign neoplasm of unspecified adrenal gland] Onset: 04-04-2021 04-04-2021 Episodic Other eye disorders (20 sources) Chalazion right upper eyelid; Translations: [Dry eyes] Onset: 08-20-2015 08-20-2015 Episodic Other eye disorders (1 source) Dry eyes; Translations: [Bilateral dry eyes] Onset: 07-06-2017 07-06-2017 Episodic Other gastrointestinal disorders (14 sources) Disorder of abdominal wall; Translations: [Other specified symptoms and signs involving the digestive system and abdomen] Onset: 11-01-2022 07-26-2023 Episodic Other hematologic conditions (18 sources) Raised cardiac enzyme or marker; Translations: [Other specified abnormalities of plasma proteins] Onset: 07-26-2023 07-26-2023 Episodic Other skin disorders (2 sources) Inflamed seborrheic keratosis; Translations: [Inflamed seborrheic keratosis] Onset: 03-11-2018 Episodic Other skin disorders (20 sources) Sebaceous cyst of skin; Translations: [Sebaceous cyst] Onset: 07-26-2023 07-26-2023 Episodic Other skin disorders (20 sources) Cyst of scalp; Translations: [Follicular cyst of the skin and subcutaneous tissue, unspecified] Onset: 07-26-2023 07-26-2023 Episodic Residual codes; unclassified (20 sources) Tobacco user; Translations: [Tobacco use] Onset: 04-08-2021 Episodic Retinal detachments; defects; vascular occlusion; and retinopathy (1 source) Retinal detachments; defects; vascular occlusion; and retinopathy Skin and subcutaneous tissue infections (20 sources) Paronychia of thumb; Translations: [Cellulitis of left finger] Onset: 07-26-2023 07-26-2023 Episodic Superficial injury; contusion (17 sources) Contusion of shoulder region; Translations: [Contusion of left shoulder, initial encounter] Onset: 07-26-2023 07-26-2023 Episodic Unclassified (5 sources) Encounter for screening for malignant neoplasm of colon; Translations: [Raised cardiac enzyme or marker] Onset: 03-11-2018 04-04-2021 Episodic Unclassified (1 source) Patient encounter status Unclassified (1 source) x Onset: 11-15-2017 Unclassified (7 sources) H/O: back problem; Translations: [History of back problems] Onset: 04-04-2021 04-04-2021 Results Test Name Value Interpretation Reference Range Facility 36 07-01-2025 36 Indira called in to set up refills for her medications. I initially spoke with Indira a week prior regarding Ozempic titration, and at that time she wanted to continue 0.5 mg dose of semaglutide. Given last A1c on file was 7.7% I advised Indira to follow up with new PCP to see if they would be agreeable to titration. Patient did speak with PCP (Dr. Jacobson) - office would like to have her increase dose to 1 mg with next refill. Pended new Rx for 1 mg pen for review, patient will likely start this dose the first week of July (has 4 weeks of 0.5 mg left on hand). Of note, patient reports minimal use of insulin (only administers if glucose >140 or 150). States that she did not not need plavix at this time, confirmed Indira has been taking daily and is taking all other medications as prescribed. [facility] will follow up to set up refill for 1 mg semaglutide in the coming weeks. Patient will be seen in office for follow up 07/25/25. Thanks! John Normal [facility] 36on 06-27-2024 36 KEITH 07/25/24, NOV 07/25/25, Labs 07/19/24. Rx pended. Normal [facility] CBC W/Diff, Automatedon 05-31 Absolute Lymph 1.75 X10 3/uL Normal 0.83-4.51 [facility] Comment on above: Order Comment: Order Date: 06/27/25 Order Info: [id number] - CBCD Performed By: #### L 100.0100, L501.9985, L509.1000, L500.4050, L500.4100 #### [facility] [address] [place], [address] Absolute Neut 3.7 X10 3/uL Normal 2.0-7.7 [facility] Comment on above: Order Comment: Order Date: 06/27/25 Order Info: [id number] - CBCD Performed By: #### L 100.0100, L501.9985, L509.1000, L500.4050, L500.4100 #### [facility] [address] [place], [address] Basophils/100 WBC (Bld) 1.1 % High 0-1 [facility] Comment on above: Order Comment: Order Date: 06/27/25 Order Info: 0184-1 - CBCD Performed By: #### L 100.0100, L501.9985, L509.1000, L500.4050, L500.4100 #### [facility] [address] [place], [address] Eosinophils/100 WBC (Bld) 6.1 % High 0-5 [facility] Comment on above: Order Comment: Order Date: 06/27/25 Order Info: 0184-1 - CBCD Performed By: #### L 100.0100, L501.9985, L509.1000, L500.4050, L500.4100 #### [facility] [address] [place], [address] Erythrocyte distribution width (RBC) [Ratio] 14.4 % Normal 11.6-14.6 [facility] Comment on above: Order Comment: Order Date: 06/27/25 Order Info: 0184- - CBCD Performed By: #### L 100.0100, L501.9985, L509.1000, L500.4050, L500.4100 #### [facility] [address] [place], [address] Hematocrit (Bld) [Volume fraction] 40.6 % Normal 37-47 [facility] Comment on above: Order Comment: Order Date: 06/27/25 Order Info: 0184- - CBCD Performed By: #### L 100.0100, L501.9985, L509.1000, L500.4050, L500.4100 #### [facility] [address] [place], [address] Hemoglobin (Bld) [Mass/Vol] 13.1 g/dL Normal 12.0-15.0 [facility] Comment on above: Order Comment: Order Date: 06/27/25 Order Info: 0184-1 - CBCD Performed By: #### L 100.0100, L501.9985, L509.1000, L500.4050, L500.4100 #### [facility] [address] [place], [address] IG% 0.500 Normal 0.0-0.9 [facility] Comment on above: Order Comment: Order Date: 06/27/25 Order Info: 0184-1 - CBCD Result Comment: IG% - Immature Granulocytes (promyelocytes, myelocytes and metamyelocytes) > 1% indicates that a LEFT SHIFT is Present. Performed By: #### L 100.0100, L501.9985, L509.1000, L500.4050, L500.4100 #### [facility] [address] [place], [address] Lymphocytes/100 WBC (Bld) 27.2 % Normal 19-41 [facility] Comment on above: Order Comment: Order Date: 06/27/25 Order Info: 0184-1 - CBCD Performed By: #### L 100.0100, L501.9985, L509.1000, L500.4050, L500.4100 #### [facility] [address] [place], [address] MCH (RBC) [Entitic mass] 28.7 pg Normal 27.0-32.0 [facility] Comment on above: Order Comment: Order Date: 06/27/25 Order Info: 0184-1 - CBCD Performed By: #### L 100.0100, L501.9985, L509.1000, L500.4050, L500.4100 #### [facility] [address] [place], [address] MCHC (RBC) [Mass/Vol] 32.3 g/dL Normal 32-36 [facility] Comment on above: Order Comment: Order Date: 06/27/25 Order Info: 0184-1 - CBCD Performed By: #### L 100.0100, L501.9985, L509.1000, L500.4050, L500.4100 #### [facility] [address] [place], [address] MCV (RBC) [Entitic vol] 89.0 fL Normal 81-99 [facility] Comment on above: Order Comment: Order Date: 06/27/25 Order Info: 0184-1 - CBCD Performed By: #### L 100.0100, L501.9985, L509.1000, L500.4050, L500.4100 #### [facility] [address] [place], [address] Monocytes/100 WBC (Bld) 7.0 % Normal 0-10 [facility] Comment on above: Order Comment: Order Date: 06/27/25 Order Info: 0184-1 - CBCD Performed By: #### L 100.0100, L501.9985, L509.1000, L500.4050, L500.4100 #### [facility] [address] [place], [address] Neutrophils/100 WBC (Bld) 58.1 % Normal 47-70 [facility] Comment on above: Order Comment: Order Date: 06/27/25 Order Info: 0184-1 - CBCD Performed By: #### L 100.0100, L501.9985, L509.1000, L500.4050, L500.4100 #### [facility] [address] [place], [address] Nucleated RBC (Bld) [#/Vol] 0 10*3/uL Normal 0-5 [facility] Comment on above: Order Comment: Order Date: 06/27/25 Order Info: 0184-1 - CBCD Performed By: #### L 100.0100, L501.9985, L509.1000, L500.4050, L500.4100 #### [facility] [address] [place], [address] Platelet mean volume (Bld) [Entitic vol] 12.5 fL High 6.2-12.0 [facility] Comment on above: Order Comment: Order Date: 06/27/25 Order Info: 0184-1 - CBCD Performed By: #### L 100.0100, L501.9985, L509.1000, L500.4050, L500.4100 #### [facility] [address] [place], [address] Platelets (Bld) [#/Vol] 187 10*3/uL Normal 150-450 [facility] Comment on above: Order Comment: Order Date: 06/27/25 Order Info: 0184-1 - CBCD Performed By: #### L 100.0100, L501.9985, L509.1000, L500.4050, L500.4100 #### [facility] [address] [place], [address] RBC (Bld) [#/Vol] 4.56 10*6/uL Normal 4.2-5.4 [facility] Comment on above: Order Comment: Order Date: 06/27/25 Order Info: 0184-1 - CBCD Performed By: #### L 100.0100, L501.9985, L509.1000, L500.4050, L500.4100 #### [facility] [address] [place], [address] RDW SD 46.9 fl High 35.1-43.9 [facility] Comment on above: Order Comment: Order Date: 06/27/25 Order Info: 0184- - CBCD Performed By: #### L 100.0100, L501.9985, L509.1000, L500.4050, L500.4100 #### [facility] [address] [place], [address] WBC (Bld) [#/Vol] 6.4 10*3/uL Normal 4.4-11.0 [facility] Comment on above: Order Comment: Order Date: 06/27/25 Order Info: 0184-1 - CBCD Performed By: #### L 100.0100, L501.9985, L509.1000, L500.4050, L500.4100 #### [facility] [address] [place], [address] Comprehensive Metabolic Prof ilon 06-27-2025 Albumin [Mass/Vol] 4.1 g/dL Normal 3.4-4.8 [facility] Comment on above: Order Comment: Order Date: 06/27/25 Order Info: 0786- - CMP Order Info: [id number] - LIPID Performed By: #### L 100.0100, L501.9985, L509.1000, L500.4050, L500.4100 #### [facility] [address] [place], [address] Albumin/Globulin [Mass ratio] 1.5 {ratio} Normal 0.9-2.4 [facility] Comment on above: Order Comment: Order Date: 06/27/25 Order Info: 0786- - CMP Order Info: [id number] - LIPID Performed By: #### L 100.0100, L501.9985, L509.1000, L500.4050, L500.4100 #### [facility] [address] [place], [address] ALK PHOS 43 U/L Normal 35-104 [facility] Comment on above: Order Comment: Order Date: 06/27/25 Order Info: 0786- - CMP Order Info: [id number] - LIPID Performed By: #### L 100.0100, L501.9985, L509.1000, L500.4050, L500.4100 #### [facility] [address] [place], [address] ALT [Catalytic activity/Vol] 9 U/L Normal <=34 [facility] Comment on above: Order Comment: Order Date: 06/27/25 Order Info: 0786- - CMP Order Info: [id number] - LIPID Performed By: #### L 100.0100, L501.9985, L509.1000, L500.4050, L500.4100 #### [facility] [address] [place], [address] AST [Catalytic activity/Vol] 14 U/L Normal <=31 [facility] Comment on above: Order Comment: Order Date: 06/27/25 Order Info: 0786-1 - CMP Order Info: [id number] - LIPID Performed By: #### L 100.0100, L501.9985, L509.1000, L500.4050, L500.4100 #### [facility] [address] [place], [address] Bilirubin [Mass/Vol] 0.55 mg/dL Normal 0.00-1.30 [facility] Comment on above: Order Comment: Order Date: 06/27/25 Order Info: 0786- - CMP Order Info: [id number] - LIPID Performed By: #### L 100.0100, L501.9985, L509.1000, L500.4050, L500.4100 #### [facility] [address] [place], [address] BUN/CRE 28.9 RATIO High 10-20 [facility] Comment on above: Order Comment: Order Date: 06/27/25 Order Info: 0786- - CMP Order Info: [id number] - LIPID Performed By: #### L 100.0100, L501.9985, L509.1000, L500.4050, L500.4100 #### [facility] [address] [place], [address] Calcium [Mass/Vol] 10.1 mg/dL Normal 7.6-11.0 [facility] Comment on above: Order Comment: Order Date: 06/27/25 Order Info: 0786-1 - CMP Order Info: [id number] - LIPID Performed By: #### L 100.0100, L501.9985, L509.1000, L500.4050, L500.4100 #### [facility] [address] [place], [address] Chloride [Moles/Vol] 103 mmol/L Normal 98-108 [facility] Comment on above: Order Comment: Order Date: 06/27/25 Order Info: 0786-1 - CMP Order Info: [id number] - LIPID Performed By: #### L 100.0100, L501.9985, L509.1000, L500.4050, L500.4100 #### [facility] [address] [place], [address] CO2 [Moles/Vol] 23.2 mmol/L Normal 21.0-32.0 [facility] Comment on above: Order Comment: Order Date: 06/27/25 Order Info: 0786- - CMP Order Info: [id number] - LIPID Performed By: #### L 100.0100, L501.9985, L509.1000, L500.4050, L500.4100 #### [facility] [address] [place], [place], [address] Creatinine [Mass/Vol] 0.83 mg/dL Normal 0.70-1.20 [facility] Comment on above: Order Comment: Order Date: 06/27/25 Order Info: 0786- - CMP Order Info: [id number] - LIPID Performed By: #### L 100.0100, L501.9985, L509.1000, L500.4050, L500.4100 #### [facility] [address] [place], [place], [id number] GAP 13 Normal 5-15 [facility] Comment on above: Order Comment: Order Date: 06/27/25 Order Info: 0786- - CMP Order Info: [id number] - LIPID Performed By: #### L 100.0100, L501.9985, L509.1000, L500.4050, L500.4100 #### [facility] [address] [place], [address] GFR/1.73 sq M.predicted among non-blacks MDRD (S/P/Bld) [Vol rate/Area] 74 mL/min/{1.73_m2} Normal >60 [facility] Comment on above: Order Comment: Order Date: 06/27/25 Order Info: 0786- - CMP Order Info: [id number] - LIPID Result Comment: mL/m in/1.73m2 CKD-EPI Creatinine Equation (2020) Performed By: #### L 100.0100, L501.9985, L509.1000, L500.4050, L500.4100 #### [facility] [address] [place], [address] Globulin (S) [Mass/Vol] 2.7 g/dL Normal 2.2-4.2 [facility] Comment on above: Order Comment: Order Date: 06/27/25 Order Info: 07 - CMP Order Info: [id number] - LIPID Performed By: #### L 100.0100, L501.9985, L509.1000, L500.4050, L500.4100 #### [facility] [address] [place], [address] Glucose [Mass/Vol] 191 mg/dL High 70-99 [facility] Comment on above: Order Comment: Order Date: 06/27/25 Order Info: 0786 - CMP Order Info: [id number] - LIPID Performed By: #### L 100.0100, L501.9985, L509.1000, L500.4050, L500.4100 #### [facility] [address] [place], [address] Potassium [Moles/Vol] 4.2 mmol/L Normal 3.3-5.1 [facility] Comment on above: Order Comment: Order Date: 06/27/25 Order Info: 0786-1 - CMP Order Info: [id number] - LIPID Performed By: #### L 100.0100, L501.9985, L509.1000, L500.4050, L500.4100 #### [facility] [address] [place], [address] Sodium [Moles/Vol] 139 mmol/L Normal 133-145 [facility] Comment on above: Order Comment: Order Date: 06/27/25 Order Info: 0786-1 - CMP Order Info: [id number] - LIPID Performed By: #### L 100.0100, L501.9985, L509.1000, L500.4050, L500.4100 #### [facility] [address] [place], [address] T PROT 6.8 g/dL Normal 5.9-8.4 [facility] Comment on above: Order Comment: Order Date: 06/27/25 Order Info: 0786-1 - CMP Order Info: [id number] - LIPID Performed By: #### L 100.0100, L501.9985, L509.1000, L500.4050, L500.4100 #### [facility] [address] [place], [place], [address] Urea nitrogen [Mass/Vol] 24 mg/dL High 4-19 [facility] Comment on above: Order Comment: Order Date: 06/27/25 Order Info: 0786-1 - CMP Order Info: [id number] - LIPID Performed By: #### L 100.0100, L501.9985, L509.1000, L500.4050, L500.4100 #### [facility] [address] [place], [address] Hemoglobin A1con 06-27-2025 HbA1c (Bld) [Mass fraction] 7.3 % High <=5.6 [facility] Comment on above: Order Comment: Order Date: 06/27/25 Order Info: [id number] - A1C Result Comment: Norm al < 5.7 % Prediabetic 5.7 - 6.4 % Diabetic >or= 6.5 % Please note range changes. Performed By: #### L 100.0100, L501.9985, L509.1000, L500.4050, L500.4100 #### [facility] [address] [place], [address] Lipid Profileon 06-27-2025 CHOL:HDL 3.04 Normal [facility] Comment on above: Order Comment: Order Date: 06/27/25 Order Info: 0786-1 - CMP Order Info: [id number] - LIPID Performed By: #### L 100.0100, L501.9985, L509.1000, L500.4050, L500.4100 #### [facility] [address] [place], [address] Cholesterol [Mass/Vol] 121 mg/dL Normal <=200 [facility] Comment on above: Order Comment: Order Date: 06/27/25 Order Info: 0786-1 - CMP Order Info: [id number] - LIPID Result Comment: Chol esterol level, Desirable <200 mg/dL Borderline high cholesterol 200-239 mg/dL High cholesterol >=240 mg/dL Recommendations of the NCEP Adult Treatment Panel for the following risk-cutoff thresholds for the [place] population. Performed By: #### L 100.0100, L501.9985, L509.1000, L500.4050, L500.4100 #### [facility] [address] [place], [place], [id number] (226) Cholesterol in HDL [Mass/Vol] 40 mg/dL Normal [facility] Comment on above: Order Comment: Order Date: 06/27/25 Order Info: 0786-1 - CMP Order Info: [id number] - LIPID Result Comment: Ade onal Cholesterol Education Program (NCEP) guidelines: <40 mg/dL: Low HDL-cholesterol (major risk factor for CHD) >= 60 mg/dL: High HDL-cholesterol (negative risk factor for CHD) HDL-cholesterol is affected by a number of factors, e.g. smoking, exercise, hormones, sex and age. Performed By: #### L 100.0100, L501.9985, L509.1000, L500.4050, L500.4100 #### [facility] [address] [place], [address] Cholesterol in LDL [Mass/Vol] 52 mg/dL Normal [facility] Comment on above: Order Comment: Order Date: 06/27/25 Order Info: 0786-1 - CMP Order Info: [id number] - LIPID Result Comment: Bord qydepa=342-406 mg/dL Higher Covw=674 mg/dL or greater Friedwald Equation for LDL-C Performed By: #### L 100.0100, L501.9985, L509.1000, L500.4050, L500.4100 #### [facility] [address] [place], [address] Cholesterol in VLDL [Mass/Vol] 29 mg/dL Normal 5-40 [facility] Comment on above: Order Comment: Order Date: 06/27/25 Order Info: 0786- - CMP Order Info: [id number] - LIPID Performed By: #### L 100.0100, L501.9985, L509.1000, L500.4050, L500.4100 #### [facility] [address] [place], [address] Triglyceride [Mass/Vol] 144 mg/dL Normal [facility] Comment on above: Order Comment: Order Date: 06/27/25 Order Info: 0786-1 - CMP Order Info: [id number] - LIPID Result Comment: The drugs N-Acetylcysteine and Metamizole may falsely depress this assay. Normal range: <150 mg/dL Borderline High: 150-199 mg/dL High: 200-499 mg/dL Very High: >500 mg/dL Performed By: #### L 100.0100, L501.9985, L509.1000, L500.4050, L500.4100 #### [facility] [address] [place], [address] Microalb:Creat Ratio,Random URon 06-27-2025 Creatinine [Mass/Vol] 37.00 mg/dL Normal 28.00- 217.0 0 [facility] Comment on above: Order Comment: Order Date: 06/27/25 Order Info: [id number] - MIALB Performed By: #### L 506.1001, L502.0250, L400.0001 #### [facility] [address] [place], [address] MALB:CREAT UNABLE TO CALCULATE Normal <30 mg/g CRE [facility] Comment on above: Order Comment: Order Date: 06/27/25 Order Info: [id number] - MIALB Performed By: #### L 506.1001, L502.0250, L400.0001 #### [facility] [address] [place], [address] MICROALBUMIN,UR < 12.0 Normal <20 mg/L [facility] Comment on above: Order Comment: Order Date: 06/27/25 Order Info: [id number] - MIALB Performed By: #### L 506.1001, L502.0250, L400.0001 #### [facility] [address] [place], [address] PTHINon 06-27-2025 PTH 22 pg/mL Normal 11-61 [facility] Comment on above: Order Comment: Order Date: 06/27/25 Order Info: 0565-1 - PTHIN Performed By: #### L 100.0100, L501.9985, L509.1000, L500.4050, L500.4100 #### [facility] [address] [place], [address] Urinalysis, Completeon 06-27 EPI,SQUAMOUS 0-5 SEEN Normal 5-10 [facility] Comment on above: Order Comment: CLEAN CATCH Performed By: #### L 506.1001, L502.0250, L400.0001 #### [facility] [address] [place], [address] RBC 0-5 SEEN Normal 0-5 [facility] Comment on above: Order Comment: CLEAN CATCH Performed By: #### L 506.1001, L502.0250, L400.0001 #### [facility] [address] [place], [address] WBC 0-5 SEEN Normal 0-5 [facility] Comment on above: Order Comment: CLEAN CATCH Performed By: #### L 506.1001, L502.0250, L400.0001 #### [facility] [address] [place], [address] BACTERIA 0 SEEN Normal None Seen [facility] Comment on above: Order Comment: CLEAN CATCH Performed By: #### L 506.1001, L502.0250, L400.0001 #### [facility] [address] [place], [address] Mucus Ql (Urine sed) 0 SEEN Normal [facility] Comment on above: Order Comment: CLEAN CATCH Performed By: #### L 506.1001, L502.0250, L400.0001 #### [facility] [address] [place], [address] Vitamin D,25 Hydroxyon 06-27 Vitamin D 25-OH 29.3 ng/mL Low 30-100 [facility] Comment on above: Order Comment: Order Date: 06/27/25 Order Info: 0786-1 - CMP Order Info: [id number] - LIPID Result Comment: Chasity min D Status Deficiency: <20 ng/mL (50nmol/L) Insufficiency: 20-30 ng/mL (50-75 nmol/L) Sufficiency: 30-100 ng/mL (75-250 nmol/L) Toxicity: >100 ng/mL (>250 nmol/L) Performed By: #### L 506.1001, L502.0250, L400.0001 #### [facility] [address] [place], [address] 36on 06-24-2025 36 Spoke with patient upon setting up semaglutide refill. Indira remains stable on Ozempic 0.5 mg and will continue this dose for time being per PCP recommendations. Overall she reports that blood glucose is well controlled, though she may benefit from repeat A1c as most recent on file appears to be from 2020, at that time A1c was 7.7%. Though patient may have completed since then at outside PCP office. Indira will have follow up visit with Dr. Sutbbs on 07/25/25, however I encouraged her to reach out with any ongoing questions or concerns in the interim. Thanks! [facility] Chest PA and Lateralon 05-15 Chest PA and Lateral [facility] [address] [place] [address] Chest PA and Lateral MR#: [id number] Acct: [id number] Name: INDIRA HATCH JUAN Rep #: [id number] : 1950 F 74 From: Emily parekh MD PCP: Dr. Gallito Jacobson MD Status: REG CLI Study: Chest PA and Lateral Date of Exam: 05/15/25 Exam# [id number] Ordering Dr: Gallito Jacobson MD PROCEDURE: CHEST PA AND LATERAL 05/15/2025 REASON FOR EXAM: BRONCHITIS TECHNIQUE: CHEST PA AND LATERAL COMPARISON: CT scan of the chest on 04/04/2021. Radiograph on 04/03/2021. FINDINGS: Mild bilateral basilar atelectatic pulmonary changes, unchanged. Mild bilateral peribronchial interstitial thickening suggestive of bronchitis. There is no demonstrated pleural abnormality. Normal heart and pericardium. Normal mediastinum and tuan. Normal visualized pulmonary arteries. Normal visualized aortic arch and descending thoracic aorta. Normal visualized thoracic spine. Normal visualized ribs, clavicles, and shoulders. There is no demonstrated abnormality of the visualized soft tissue structures of the upper abdomen. RAD/Chest PA and Lateral IMPRESSION: Bronchitis. Bilateral basilar atelectatic pulmonary changes, unchanged. Reading [facility] CC: Dr. Gallito Jacobson MD School Services Officer: Signed [facility] 36on 12-07-2024 36 KEITH KV 07/26/24 NOV KV 07/25/25 Labs 07/19/24 Rx Pending [facility] 36on 09-19-2024 36 KEITH 07/22, labs 07/22. Rx pended. [facility] 36on 08-21-2024 36 KEITH KV 07/26/24 NOV KV 07/25/25 Labs 07/19/24 Rx Pending Normal [facility] ECG 12 lead - CLINIC PERFORM EDon 07-26-2024 Sinus Rhythm Low voltage in precordial leads. [facility] Office Visiton 07-26-2024 Follow-up visit [id number] Shoshana Hatch izabella Jacobs 1950 F Date Provider Department Center 07/26/2024 [id number] STUBBS [facility] [address] Family History Problem Relation Age of Onset Coronary artery disease Mother Comments: stents Heart attack Mother Coronary artery disease Brother Comments: stents Coronary artery disease Brother 45.00 Comments: quadruple bi-pass Family Status - Relation Status Age at Mother Brother Brother Level of Service:[address]75 [place] OFFICE/OUTPATIENT ESTABLISHED MOD MDM 30 MIN Reason for Visit and Comments: Annual Exam [83] Hypertension [689061] Hyperlipidemia [182] Coronary Artery Disease [187] Cardiomyopathy [104] Normal [facility] 36on 07-24-2024 36 Upcoming visit 07/26 OV 07/26/2023 BMP 07/19/2024 Normal [facility] Basic metabolic 2000 panelon 07-19-2024 Anion gap [Moles/Vol] 10 mmol/L Normal 8- [facility] Comment on above: Order Comment: Speci men Type: BLOOD SPECIMEN Ordering Facility: [facility] Address: [address] [place] [address] Performed By: #### 2 4321-2 #### [facility] CLIA [id number] [address] [place] [address] [place] Calcium [Mass/Vol] 10.8 mg/dL High 8.5-10.2 [facility] Comment on above: Order Comment: Speci men Type: BLOOD SPECIMEN Ordering Facility: [facility] Address: [address] [place] [address] Performed By: #### 2 4321-2 #### [facility] CLIA [id number] [address] [place] [address] [place] Chloride [Moles/Vol] 104 mmol/L Normal 98-107 [facility] Comment on above: Order Comment: Ashwini pruett Type: BLOOD SPECIMEN Ordering Facility: [facility] Address: [address] [place] [address] Performed By: #### 2 4321-2 #### [facility] [id number] [address] [place] [address] [place] CO2 [Moles/Vol] 23 mmol/L Normal 22-30 [facility] Comment on above: Order Comment: Speci men Type: BLOOD SPECIMEN Ordering Facility: [facility] Address: [address] [place] [address] Performed By: #### 2 4321-2 #### [facility] [id number] [address] [place] [address] [place] Creatinine [Mass/Vol] 0.64 mg/dL Normal 0.58-0.96 [facility] Comment on above: Order Comment: Speci men Type: BLOOD SPECIMEN Ordering Facility: [facility] Address: [address] [place] [address] Performed By: #### 2 4321-2 #### [facility] [id number] [address] [place] [address] [place] Creatinine and Glomerular filtration rate.predicted panel (S/P/Bld) 93 mL/min/1.73m??? Normal >=60 [facility] Comment on above: Order Comment: Speci men Type: BLOOD SPECIMEN Ordering Facility: [facility] Address: [address] [place] [address] Result Comment: Ashley mated Glomerular Filtration Rate (eGFR) is calculated using the 2020 CKD-EPI creatinine equation. This equation utilizes serum creatinine, sex, and age as parameters. The creatinine assay has traceable calibration to isotope dilution-mass spectrometry. Refer to KDIGO guidelines for clinical interpretation. In patients with unstable renal function, e.g. those with acute kidney injury, the eGFR may not accurately reflect actual GFR. Performed By: #### 2 4321-2 #### [facility] CLIA [id number] [address] [place] [address] [place] Glucose [Mass/Vol] 115 mg/dL High 74-99 [facility] Comment on above: Order Comment: Ashwini pruett Type: BLOOD SPECIMEN Ordering Facility: [facility] Address: [address] [place] [address] Result Comment: The [place] Diabetes Association (ADA) provides guidance for cutoff values for fasting glucose and random glucose. The ADA defines fasting as no caloric intake for at least 8 hours. Fasting plasma glucose results between 100 to 125 mg/dL indicate increased risk for diabetes (prediabetes). Fasting plasma glucose results greater than or equal to 126 mg/dL meet the criteria for diagnosis of diabetes. In the absence of unequivocal hyperglycemia, results should be confirmed by repeat testing. In a patient with classic symptoms of hyperglycemia or hyperglycemic crisis, random plasma glucose results greater than or equal to 200 mg/dL meet the criteria for diagnosis of diabetes. Reference: Standards of Medical Care in Diabetes 2016, [place] Diabetes Association. Diabetes Care. 2016.39(Suppl 1). Performed By: #### 2 4321-2 #### [facility] CLIA [id number] [address] [place] [address] [place] Potassium [Moles/Vol] 4.5 mmol/L Normal 3.7-5.1 [facility] Comment on above: Order Comment: Ashwini pruett Type: BLOOD SPECIMEN Ordering Facility: [facility] Address: [address] [place] [address] Performed By: #### 2 4321-2 #### [facility] CLIA [id number] [address] [place] [address] [place] Sodium [Moles/Vol] 137 mmol/L Normal 136-144 [facility] Comment on above: Order Comment: Ashwini pruett Type: BLOOD SPECIMEN Ordering Facility: [facility] Address: [address] [place] [address] Performed By: #### 2 4321-2 #### [facility] CLIA [id number] [address] [id number] [place] Urea nitrogen [Mass/Vol] 16 mg/dL Normal 7-21 [facility] Comment on above: Order Comment: Speci men Type: BLOOD SPECIMEN Ordering Facility: [facility] Address: [address] [place] [address] Performed By: #### 2 4321-2 #### [facility] CLIA [id number] [address] [id number] [facility] [place] 36on 07-11-2024 36 Spoke with patient, she continues to do well on Ozempic. It looks like Indira has not had repeat A1c since beginning Ozempic. Upon speaking with her today Indira reiterated that her PCP would like her to continue on 0.5 mg dose moving forward. She reports some improvement in glucose control and about a 15 lb weight loss from baseline. Patient will be seen in office for 1 year follow up 07/26/24. Thanks! [facility] SCRN MAMM (CAD)W/ALBERT BILATo n 07-05-2024 SCRN MAMM (CAD)W/ALBERT BILAT [facility] [address] [place] [address] SCRN MAMM (CAD)W/ALBERT BILAT MR#: [id number] Acct: [id number] Name: INDIRA HATCH Rep #: [id number] : 1950 F 73 From: Curtis Enciso MD PCP: Dr. Cherie Deluca MD Status: REG CLI Study: SCRN MAMM (CAD)W/ALBERT BILAT Date of Exam: 06/21 Exam# [id number] Ordering Dr: Cherie Deluca MD [id number] MAMMOGRAPHY - BILATERAL SCREENING 3-D TOMOSYNTHESIS REASON FOR EXAM: Female, 73 years old. screening PERTINENT HISTORY: No significant family history. TECHNIQUE: 2-D mammograms and 3-D Tomosynthesis of the breast (s) were performed. CAD was performed. COMPARISON: 07/09/2022 FINDINGS: The breast composition is composed of scattered fibroglandular density. Scattered benign calcifications are seen. No dense spiculated masses or suspicious microcalcifications are identified. No architectural distortion is identified. There is no skin thickening or retraction. There has been no significant change since the prior study. BI/SCRN MAMM (CAD)W/ALBERT BILAT IMPRESSION: No mammographic signs of malignancy. Routine yearly mammograms recommended. ASSESSMENT CATEGORY: BIRADS Category 1: Negative. A letter regarding these results will be sent to the patient by the facility within 30 days. FOLLOW UP RECOMMENDATION: Yearly follow up mammogram recommended. (A) Approximately 10% of breast cancers are not detected by mammography. A normal mammogram should not delay biopsy of a clinically suspicious abnormality. Electronically Signed: Curtis Enciso MD at 13:04 EDT , CC: Dr. Cherie Deluca MD School Services Officer: [facility] ) INDIRA HATCH ([id number]) 1950 F Date Time Provider Department 01/08/24 3:00 PM SANTIAGO LEIVA WSTR During your visit today, we recorded the following information about you: Temperature Pulse Respiration Blood pressure 98.1 degrees 88/minute 20/minute 120/52 Weight 78 kg Santiago Leiva APRN.HYDROGEN POWER PLANT MANAGER 01/08/2024 3:37 PM Signed CC: Patient presents with: Sinus Problem: Sinus pressure in head and face, drainage x 1 day Patient was recently on antibiotics for a sinus infection. HPI: Indira Ann Luis Eduardo is a 73 year old female who presents to the office with complaint of head congestion and cough, nonproductive for the past day. Symptoms are staying the same. Associated symptoms includes nasal congestion. Denies fever, nausea, vomiting , and diarrhea. Treatments tried include nothing so far. with no relief of symptoms. Sick contacts: unknown. History of asthma, frequent episodes of bronchitis, chronic bronchitis, bronchiectasis or COPD: No Smoker: No Seasonal/environmenta l allergies: No The ROS is otherwise negative. The patient's pmh, medications, allergies, and past visits are reviewed. PHYSICAL EXAM: BP 120/52 Pulse 88 Temp 36.7 ?C (98.1 ?F) Resp 20 Wt 78 kg (172 lb) SpO2 96% General appearance: alert, cooperative, pleasant, in no acute distress Head: Normocephalic Eyes: EOM's intact, conjunctiva pink and moist, no icterus, sclera white, non-injected Ears: Right ear: External ear/canal- Normal, TM - clear with good landmarks. Left ear: External ear/canal- Normal, TM - clear with good landmarks Oropharynx:moist without lesions, No erythema, exudates or tonsillar hypertrophy. Heart: Negative. RRR without obvious murmur, gallop, or rubs. No ectopy. Lungs: clear to auscultation, without rales or wheeze, good air exchange No past medical history on file. No past surgical history on file. ALLERGIES Cefuroxime, Entresto [Sacubitril-Valsartan ], Lipitor [Atorvastatin], Lisinopril, Percocet [Oxycodone-Acetaminop hen], Rosuvastatin, and Tetracycline MEDICATIONS clopidogrel (PLAVIX) 75 mg tablet JARDIANCE 10 mg tablet losartan (COZAAR) 25 mg tablet Take 1 tablet by mouth every afternoon. magnesium oxide (MAG-OX) 400 mg (241.3 mg magnesium) tablet Take 400 mg by mouth. pravastatin (PRAVACHOL) 40 mg tablet spironolactone (ALDACTONE) 25 mg tablet Take 25 mg by mouth. metFORMIN ER (GLUCOPHAGE XR) 500 mg 24 hr tablet Take 2,000 mg by mouth. insulin glargine-yfgn (SEMGLEE,INSULIN GLARGINE-YFGN,) 100 unit/mL solution Inject 50 Units subcutaneously at bedtime as needed. NOVOLOG FLEXPEN U-100 INSULIN 100 unit/mL (3 mL) INJECT 20 UNITS SUBCUTANEOUSLY AT LUNCH AND 25 UNITS AT DINNER carvedilol (COREG) 12.5 mg tablet semaglutide (OZEMPIC SUBCUTANEOUS) Inject subcutaneously. insulin 70/30 aspart protamine-aspart units/mL (NOVOLOG MIX 70/30) 100 units/mL solution Inject 45 Units subcutaneously. (Patient not taking: Reported on 01/08/2024) No family history on file. Social History Tobacco Use Smoking status: Every Day Types: Cigarettes Passive exposure: Current Smokeless tobacco: Never ASSESSMENT/PLAN: 1. URI, acute - ICD9: 465.9, ICD10: J06.9 - COVID NAAT, UPPER RESPIRATORY, ROUTINE - INFLUENZA AANDB MOLECULAR (POC) - pos flu A Patient did request an antibiotic. Discussed viral etiology with patient and how antibiotics are not required on day 1 of symptoms. Prescription instructions reviewed with patient as applicable. Potential red flag symptoms discussed with the patient. Reviewed appropriate action plan to take if red flag symptoms occur. Patient agreeable to treatment plan. Santiago Leiva APRN.HYDROGEN POWER PLANT MANAGER Allergies As of Date: 01/08/2024 Noted Allergy Reaction CEFUROXIME 01/08/2024 14 - Other: See Comments Comments: Leg Cramps ENTRESTO (SACUBITRIL-VALSARTAN ) 01/08/2024 11 - Vomiting LIPITOR (ATORVASTATIN) 01/08/2024 14 - Other: See Comments Comments: Leg Cramps LISINOPRIL 01/08/2024 3 - Cough PERCOCET (OXYCODONE-ACETAMINOP HEN)01/08/2024 11 - Vomiting ROSUVASTATIN 10/27/2022 14 - Other: See Comments Comments: Leg Cramps TETRACYCLINE 01/08/2024 9 - Itching Date Reviewed: 01/08/2024 Reviewed by: Yesi Anaya MA - Fully Assessed Reason for Visit: Sinus Problem [99] Cmt: Sinus pressure in head and face, drainage x 1 day Primary Visit Diagnosis:URI, acute [J06.9] Other Visit Diagnosis:Influenza A [J10.1] Order(s):COVID NAAT, UPPER RESPIRATORY, ROUTINE [SQCOVID] Order #: [id number] FUTURE INFLUENZA AANDB MOLECULAR (POC) [3546961] Order #: [id number]. #:[id number] COVID NAAT, UPPER RESPIRATORY, ROUTINE [SQCOVID] Order #: [id number]. #:[id number] oseltamivir (TAMIFLU) 75 mg capsuleTake 1 capsule by mouth two times a day for 5 days.Disp: 10 capsuleRfl: 0 Prescriptions as of 01/08/2024 - vidhi (more content not included)... Normal [facility] SARS-CoV-2 RNA Resp Ql JUNIE+p robeon 01-08-2024 SARS-CoV-2 (COVID-19) RNA JUNIE+probe Ql (Resp) COVID 19 RESULT: Not detected The method used is RT-PCR or an equivalent NAAT method. Reference Range (the expected result in uninfected individuals): Not detected Normal [facility] Comment on above: Performed By: #### 9 4500-6 #### [facility] CLIA [id number] [address] [place] [address] [place] Basophil percentageOrdered B y: Cherie Deluca on 12-20-2023 Bilirubin [Mass/Vol] 0.70 mg/dL 0.20-1.00 [facility] Comment on above: For patients on eltr ombopag therapy, use of Dimension Elmo TBIL is not recommended. Chloride [Moles/Vol] 106 mmol/L 98-107 [facility] Cholesterol [Mass/Vol] 123 mg/dL <200 [facility] Comment on above: <200 mg/dL Desirable 200-240 mg/dL Borderline >240 mg/dL High Risk Glucose [Mass/Vol] 111 mg/dL 74-106 [facility] Comment on above: Fasting Glucose resu lt from 100 to 125 mg/dL suggests IMPAIRED HOMEOSTASIS per A.D.A. criteria. Potassium [Moles/Vol] 4.2 mmol/L 3.5-5.1 [facility] Protein [Mass/Vol] 7.2 g/dL 6.4-8.2 [facility] Sodium [Moles/Vol] 139 mmol/L 136-145 [facility] Triglyceride [Mass/Vol] 195 mg/dL <199 [facility] Comment on above: The drugs N-Acetylcy steine and Metamizole may falsely depress this assay.Serum Triglycerides Reference Interval Normal <150 mg/dL Borderline high 150 - 199 mg/dL High 200 - 499 mg/dL Very High > or = 500 mg/dL Direct bilirubinOrdered By: Cherie Deluca on 12-20-2023 Bilirubin.direct [Mass/Vol] 0.20 mg/dL 0.00-0.30 [facility] High density lipoprotein (HD L) measurementOrdered By: Cherie Deluca on 12-20-2023 Cholesterol in HDL (Body fld) [Mass/Vol] 40 mg/dL >40 [facility] Comment on above: The drugs N-Acetylcy steine and Metamizole may falsely depress this assay. Reference Range HDL <40 mg/dL Low HDL Cholesterol HDL >or= 60 mg/dL High HDL Cholesterol Laboratory - Chemistry and C hemistry - challengeOrdered By: Cherie Deluca on 12-20-2023 ALP [Catalytic activity/Vol] 43 U/L 45-117 [facility] ALT [Catalytic activity/Vol] 15 U/L 13-56 [facility] CO2 [Moles/Vol] 27.0 mmol/L 21.0-32.0 [facility] Globulin (S) [Mass/Vol] 3.8 g/dL 2.2-4.2 [facility] Urea nitrogen/Creatinine [Mass ratio] 24.1 mg/mg 10-20 [facility] Low density lipoprotein (LDL ) cholesterol measurementOrdered By: Cherie Deluca on 12-20-2023 Cholesterol in LDL (Body fld) [Moles/Vol] 44 mg/dL 0-130 [facility] No Panel InformationOrdered By: Cherie Deluca on 12-20-2023 Estimated GFR (MDRD) Amer 104 mL/min >60 [facility] Comment on above: GFR Calc Estimated GFR (MDRD) Non-Af Amer 86 mL/min >60 [facility] Comment on above: Non- GFR Calc Serum or plasma calcium jessy urement (mass/volume)Ordered By: Cherie Deluca on 12-20-2023 Calcium [Mass/Vol] 10.0 mg/dL 8.5-10.1 [facility] Serum or plasma creatinine m easurement (mass/volume)Ordered By: Cherie Deluca on 12-20-2023 Creatinine [Mass/Vol] 0.71 mg/dL 0.55-1.02 [facility] Comment on above: The validity of the calculated GFR & GFRAA in patients over 70 years has not been determined. Clinical correlation is essential. Serum or plasma urea nitroge n measurement (mass/volume)Ordered By: Cherie Deluca on 12-20-2023 Urea nitrogen [Mass/Vol] 17 mg/dL 7-18 [facility] Thin prep Papanicolaou smear with manual screeningOrdered By: Cherie Deluca on 12-20-2023 Thin prep Papanicolaou smear with manual screening 3.4 g/dL 3.2-5.0 [facility] Thin prep Papanicolaou smear with manual screening 16 U/L 15-37 [facility] Thin prep Papanicolaou smear with manual screening 6 5-15 [facility] Thin prep Papanicolaou smear with manual screening 6.8 mg/L NO RANGE EST. [facility] Urine albumin/creatinine rat io for detection of microalbuminuriaOrdered By: Cherie Deluca on 12-20-2023 Albumin/Creatinine DL <= 1.0 mg/L (24H U) [Ratio] 10.3 mg/g CRE <30 [facility] Urine creatinine measurement (mass/volume)Ordered By: Cherie Deluca on 12-20-2023 Creatinine (U) [Mass/Vol] 65.50 mg/dL NO RANGE EST. [facility] Very low density lipoprotein (VLDL) cholesterol measurementOrdered By: Cherie Deluca on 12-20-2023 Cholesterol in VLDL Calc [Moles/Vol] 39 mg/dL 5-40 [facility] Basic metabolic 2000 panelon 08-03-2023 Anion gap [Moles/Vol] 11 mmol/L Normal 9-18 [facility] Comment on above: Order Comment: Speci men Type: BLOOD SPECIMEN Ordering Facility: External Submitter Address: , , Performed By: #### 2 4321-2 #### [facility] CLIA [id number] [address] [place] [address] [place] Calcium [Mass/Vol] 9.9 mg/dL Normal 8.5-10.2 [facility] Comment on above: Order Comment: Speci men Type: BLOOD SPECIMEN Ordering Facility: External Submitter Address: , , Performed By: #### 2 4321-2 #### [facility] CLIA [id number] [address] [place] [address] [place] Chloride [Moles/Vol] 103 mmol/L Normal 97-105 [facility] Comment on above: Order Comment: Speci men Type: BLOOD SPECIMEN Ordering Facility: External Submitter Address: , , Performed By: #### 2 4321-2 #### [facility] CLIA [id number] [address] [place] [address] [place] CO2 [Moles/Vol] 22 mmol/L Normal 22-30 [facility] Comment on above: Order Comment: Speci men Type: BLOOD SPECIMEN Ordering Facility: External Submitter Address: , , Performed By: #### 2 4321-2 #### [facility] CLIA [id number] [address] [place] [address] [place] Creatinine [Mass/Vol] 1.03 mg/dL High 0.58-0.96 [facility] Comment on above: Order Comment: Speci men Type: BLOOD SPECIMEN Ordering Facility: External Submitter Address: , , Performed By: #### 2 4321-2 #### [facility] [id number] [address] [place] [address] OF [facility] Creatinine and Glomerular filtration rate.predicted panel (S/P/Bld) 58 mL/min/1.73m??? Low >=60 [facility] Comment on above: Order Comment: Speci flynn Type: BLOOD SPECIMEN Ordering Facility: External Submitter Address: , , Result Comment: Ashley mated Glomerular Filtration Rate (eGFR) is calculated using the 2020 CKD-EPI creatinine equation. This equation utilizes serum creatinine, sex, and age as parameters. The creatinine assay has traceable calibration to isotope dilution-mass spectrometry. Refer to KDIGO guidelines for clinical interpretation. In patients with unstable renal function, e.g. those with acute kidney injury, the eGFR may not accurately reflect actual GFR. Performed By: #### 2 4321-2 #### [facility] CLIA [id number] [address] [place] [address] [place] Glucose [Mass/Vol] 215 mg/dL High 74-99 [facility] Comment on above: Order Comment: Ashwini pruett Type: BLOOD SPECIMEN Ordering Facility: External Submitter Address: , , Result Comment: The [place] Diabetes Association (ADA) provides guidance for cutoff values for fasting glucose and random glucose. The ADA defines fasting as no caloric intake for at least 8 hours. Fasting plasma glucose results between 100 to 125 mg/dL indicate increased risk for diabetes (prediabetes). Fasting plasma glucose results greater than or equal to 126 mg/dL meet the criteria for diagnosis of diabetes. In the absence of unequivocal hyperglycemia, results should be confirmed by repeat testing. In a patient with classic symptoms of hyperglycemia or hyperglycemic crisis, random plasma glucose results greater than or equal to 200 mg/dL meet the criteria for diagnosis of diabetes. Reference: Standards of Medical Care in Diabetes 2016, [place] Diabetes Association. Diabetes Care. 2016.39(Suppl 1). Performed By: #### 2 4321-2 #### [facility] [id number] [address] [place] [address] [place] Potassium [Moles/Vol] 5.8 mmol/L High 3.7-5.1 [facility] Comment on above: Order Comment: Ashwini pruett Type: BLOOD SPECIMEN Ordering Facility: External Submitter Address: , , Performed By: #### 2 4321-2 #### [facility] CLIA [id number] [address] [place] [address] [place] Sodium [Moles/Vol] 136 mmol/L Normal 136-144 [facility] Comment on above: Order Comment: Ashwini pruett Type: BLOOD SPECIMEN Ordering Facility: External Submitter Address: , , Performed By: #### 2 4321-2 #### [facility] CLIA [id number] [address] [place] [address] [place] Urea nitrogen [Mass/Vol] 25 mg/dL High 7-21 [facility] Comment on above: Order Comment: Speci men Type: BLOOD SPECIMEN Ordering Facility: External Submitter Address: , , Performed By: #### 2 4321-2 #### [facility] CLIA [id number] [address] [place] [address] [place] US Heart TransthoracicOrdere d By: Rain Escobar on 10-27-2022 Ascending Aorta 3.8 cm [facility] Work Phone: [phone] Ascending Aorta Index 2.02 cm/m2 [facility] Work Phone: [phone] AV Area by Peak Velocity 2.1 cm2 [facility] Work Phone: [phone] AV Peak Gradient 4 mmHg [facility] Work Phone: [phone] AV Peak Velocity 1.0 m/s [facility] Work Phone: [phone] AV Velocity Ratio 0.70 [facility] Work Phone: [phone] DAVID/BSA Peak Velocity 1.1 cm2/m2 [facility] Work Phone: [phone] E/E' Lateral 10.60 [facility] Work Phone: [phone] E/E' Ratio (Averaged) 10.60 [facility] Work Phone: [phone] E/E' Septal 10.60 [facility] Work Phone: [phone] EF BP 55 % 55 - 100 % [facility] Work Phone: [phone] Est. RA Pressure 3 mmHg [facility] Work Phone: [phone] Fractional Shortening 2D 28 % 28 - 44 % [facility] Work Phone: [phone] Global Longitudinal Strain -15.0 % [facility] Work Phone: [phone] Interpretation and review of laboratory results Abnormal [facility] Work Phone: [phone] IVC Diameter 1.7 cm [facility] Work Phone: [phone] IVSd 1.2 cm 0.6 - 0.9 cm [facility] Work Phone: LA Appendage Area 2C 10.9 cm2 [facility] Work Phone: LA Appendage Area 4C 14.6 cm2 [facility] Work Phone: LA Diameter 3.1 cm [facility] Work Phone: LA Size Index 1.65 cm/m2 [facility] Work Phone: LA Volume 2C 25 mL 22 - 52 mL [facility] Work Phone: LA Volume 4C 40 mL 22 - 52 mL [facility] Work Phone: LA Volume A/L 39 mL [facility] Work Phone: LA Volume Index 2C 13 mL/m2 16 - 34 mL/m2 [facility] Work Phone: LA Volume Index 4C 21 mL/m2 16 - 34 mL/m2 [facility] Work Phone: LA Volume Index A/L 21 mL/m2 16 - 34 mL/m2 [facility] Work Phone: LV E' Lateral Velocity 5 cm/s [facility] Work Phone: LV E' Septal Velocity 5 cm/s [facility] Work Phone: LV EDV A2C 82 mL [facility] Work Phone: LV EDV A4C 77 mL [facility] Work Phone: LV EDV BP 82 mL 56 - 104 mL [facility] Work Phone: LV EDV Index A2C 44 mL/m2 [facility] Work Phone: LV EDV Index A4C 41 mL/m2 [facility] Work Phone: LV EDV Index BP 44 mL/m2 [facility] Work Phone: LV Ejection Fraction A2C 48 % [facility] Work Phone: LV Ejection Fraction A4C 60 % [facility] Work Phone: LV ESV A2C 43 mL [facility] Work Phone: [phone] LV ESV A4C 31 mL [facility] Work Phone: [phone] LV ESV BP 37 mL 19 - 49 mL [facility] Work Phone: [phone] LV ESV Index A2C 23 mL/m2 [facility] Work Phone: [phone] LV ESV Index A4C 16 mL/m2 [facility] Work Phone: [phone] LV ESV Index BP 20 mL/m2 [facility] Work Phone: [phone] LV Mass 2D 217.4 g Abnormal 67 - 162 g [facility] Work Phone: [phone] LV Mass 2D Index 115.6 g/m2 43 - 95 g/m2 [facility] Work Phone: [phone] LV RWT Ratio 0.57 [facility] Work Phone: [phone] LVIDd 4.6 cm 3.9 - 5.3 cm [facility] Work Phone: [phone] LVIDd Index 2.45 cm/m2 [facility] Work Phone: [phone] LVIDs 3.3 cm [facility] Work Phone: [phone] LVIDs Index 1.76 cm/m2 [facility] Work Phone: [phone] LVOT Area 3.1 cm2 [facility] Work Phone: [phone] LVOT Cardiac Output 3.2 liter/mi nut e [facility] Work Phone: [phone] LVOT Diameter 2.0 cm [facility] Work Phone: [phone] LVOT Mean Gradient 1 mmHg [facility] Work Phone: [phone] LVOT Peak Gradient 2 mmHg [facility] Work Phone: [phone] LVOT Peak Velocity 0.7 m/s [facility] Work Phone: [phone] LVOT Stroke Volume Index 24.1 mL/m2 [facility] Work Phone: [phone] LVOT SV 45.2 ml [facility] Work Phone: [phone] LVOT VTI 14.4 cm [facility] Work Phone: [phone] LVPWd 1.3 cm 0.6 - 0.9 cm [facility] Work Phone: [phone] MV A Velocity 0.87 m/s [facility] Work Phone: [phone] MV E Velocity 0.53 m/s [facility] Work Phone: [phone] MV E Wave Deceleration Time 217.4 ms [facility] Work Phone: [phone] MV E/A 0.61 [facility] Work Phone: [phone] WI Max Velocity 0.6 m/s [facility] Work Phone: [phone] Pulmonary Artery EDP 2 mmHg [facility] Work Phone: [phone] PV Max Velocity 0.9 m/s [facility] Work Phone: [phone] PV Peak Gradient 3 mmHg [facility] Work Phone: [phone] RV Free Wall Peak S' 10 cm/s [facility] Work Phone: [phone] RVSP 21 mmHg [facility] Work Phone: [phone] TAPSE 2.1 cm 1.7 cm [facility] Work Phone: [phone] TR Max Velocity 2.14 m/s [facility] Work Phone: [phone] TR Peak Gradient 18 mmHg [facility] Work Phone: [phone] [facility] Work Phone: [phone] Heart Transthoracicon Left Ventricle: Left ventricle size is normal. Mildly increased wall thickness. Normal left ventricular systolic function. EF by 2D Simpsons Biplane is 55%. Global longitudinal strain is -15% (no apical sparing pattern is seen). Normal wall motion. Grade I diastolic dysfunction with normal LAP. Right Ventricle: Right ventricle size is normal. Normal systolic function. Tricuspid Valve: Trace regurgitation. Normal RVSP. No significant valve disease Left Ventricle Left ventricle size is normal. Mildly increased wall thickness. Normal left ventricular systolic function. EF by 2D Simpsons Biplane is 55%. Global longitudinal strain is -15% (no apical sparing pattern is seen). Normal wall motion. Grade I diastolic dysfunction with normal LAP. Right Ventricle Right ventricle size is normal. Normal systolic function. Left Atrium Left atrium size is normal. Right Atrium Right atrium size is normal. IVC/SVC IVC diameter is normal and decreases greater than 50% during inspiration; therefore the estimated right atrial pressure is normal (~3 mmHg). Mitral Valve Valve structure is normal. No regurgitation. No stenosis noted. Tricuspid Valve Valve structure is normal. Trace regurgitation. Normal RVSP. Aortic Valve Trileaflet. No cusp thickening. No cusp calcification. No regurgitation. No stenosis. Pulmonic Valve Valve structure is normal. Trace regurgitation. Ascending Aorta Normal sized annulus, sinuses of Valsalva and ascending aorta. Pericardium No pericardial effusion. Septum No interatrial shunt visualized on color Doppler. Study Details Image quality: good. Additional technique includes myocardial strain. No contrast was given. CV CPACS Basophil percentageon 2021 Cholesterol [Mass/Vol] 148 mg/dL <200 [facility] Work Phone: Comment on above: <200 mg/dL Desirable 200-240 mg/dL Borderline >240 mg/dL High Risk Triglyceride [Mass/Vol] 235 mg/dL <199 [facility] Work Phone: Comment on above: The drugs N-Acetylcy steine and Metamizole may falsely depress this assay.Serum Triglycerides Reference Interval Normal <150 mg/dL Borderline high 150 - 199 mg/dL High 200 - 499 mg/dL Very High > or = 500 mg/dL Serum or plasma cholesterol in HDL measurement (mass/volume)on 09-16-2022 Cholesterol in HDL [Mass/Vol] 35 mg/dL >40 [facility] Work Phone: Comment on above: The drugs N-Acetylcy steine and Metamizole may falsely depress this assay. Reference Range HDL <40 mg/dL Low HDL Cholesterol HDL >or= 60 mg/dL High HDL Cholesterol Serum or plasma cholesterol in VLDL measurement (mass/volume)on 09-16-2022 Cholesterol in VLDL [Mass/Vol] 47 mg/dL 5-40 [facility] Work Phone: [phone] Serum or plasma low density lipoprotein (LDL) cholesterol measurement (mass/volume)on 09-16-2022 Cholesterol in LDL [Mass/Vol] 66 mg/dL 0-130 [facility] Work Phone: MILY SCREENING W Amber 07-09 [facility] ACT,Whole Bloodon 04-30-2021 ACT,Whole Blood 333 s High 90-134 [facility] Comment on above: Result Comment: ACTB O Performed by [employer] EliteCLIA ID: [id number] [place] ACT testing is not intended for patients taking aprotonin, patients with hematocrits of <20% or >55%, patients using other types of anticoagulation medications, and patients with Lupus Anticoagulant. Performed By: #### T SH5, MBF33, CKMBS, LIPD2 #### [employer] [address] [place] [address] ACT,Whole Blood 233 s High 90-134 [facility] Comment on above: Result Comment: ACTB O Performed by [employer] EliteCLIA ID: [id number] [facility] [place] ACT testing is not intended for patients taking aprotonin, patients with hematocrits of <20% or >55%, patients using other types of anticoagulation medications, and patients with Lupus Anticoagulant. Performed By: #### T SH5, MBF33, CKMBS, LIPD2 #### [employer] [address] [place] [address] CARDIAC CATH NURSING LOGOrde red By: Unafinance Scanning on 04-29-2021 [facility] Work Phone: Diagnostic Catherizationon 0 04-29-2021 Diagnostic Catherization Patient Name: INDIRA TIAN Button Reclaimer ACCESSION EXAM DATE/TIME PROCEDURE ORDERING PROVIDER [id number] 04/29/2021 09:53 EDT Diagnostic Catherization MD RANJANA, ADRIANA Salgado Reason For Exam (Diagnostic Catherization) chest pain Report [facility] -------- CARDIAC CATHETERIZATION Patient: Indira Hatch Procedure Date: 04/29/2021 : 1950 Age: 70 Gender: F Patient Type: Outpatient Procedure physician: Adriana Minor MD Fellow: Referring Physician: Adriana Minor MD -------- INDICATIONS: Atherosclerotic coronary artery disease. Cardiomyopathy. Previous stent. Recent cath/staged procedure. [[LE FT]] -------- Procedures performed: # Right coronary angiography. # Left coronary angiography. # Left heart catheterization with angiography. # Percutaneous intervention on the 90% stenosis in the proximal 1st obtuse marginal. Balloon angioplasty. Balloon angioplasty. Stent placement. Interventional IVUS examination. # Percutaneous intervention on the 80% stenosis in the proximal left circumflex. Balloon angioplasty. Balloon angioplasty. Stent placement. Interventional IVUS examination. -------- SUMMARY: 70yo female with recent admission for NSTEMI and acute systolic HF found to have ischemic cardiomyopathy EF 25% and severe calc ific multivessel CAD, predominantly involving proximal-midLAD and proxim al LCx/OM1; mild-moderate diffuse disease of dominant RCA also noted. [facility] Heart Team evaluation, pt deemed poor candidate for CABG, and un derwent PCI of proximal-midLAD with CSI atherectomy and deployment of 2 overlapped JESUS. Pt returns today for staged PCI of the LCx/OM1. IMPRESSIONS: 1. Successful IVUS-guided PCI of the calcificed proximal LCx and OM1 with extensive PTCA and deployment of 2 overlapped Xience JESUS Button Reclaimer Report (3.0x33mm to proximal LCx and 2.04r87gt to proximal OM1) 2. Widely patent overlapped stents of proximal-midLAD. Residual 30% discrete ostial LAD stenosis, with mild diffuse distal LAD disease. 3. Dominant RCA with moderate diffuse calcified atherosclerosis; 50% midRCA stenosis, and 50% stenosis of proximal RPL branch; mild diffuse disease of RPDA. 4. Mild diffuse disease of LMCA. 5. Mild LV systolic dysfunction, EF 40-45%; moderate hypokinesis of mid ant-lateral hypokinesis; normal function of inferior wall and apex; improved s/p LAD PCI. 6. Mildly elevated LVEDP. No or MR. RECOMMENDATIONS: 1. Patient management should include aggressive risk factor modification. 2. Patient management should include aggressive medical management of CAD, avoidance of all tobacco products, and a cardiac rehabilitation program. The patient was counseled regarding the importance of adherence to the prescribed antiplatelet therapy and a low fat diet. 3. Aspirin, 81mgPOdaily, indefinitely. 4. Ticagrelor (Brilinta), 90mgPObid, for 12 mon, minimum. 5. Ongoing mgmt of CAD, ischemic cardiomyopathy, and systolic HF. Plan to reassess EF by echo in 90days. -------- HISTORY: Risk factors: Hypertension. Diabetes mellitus; on therapy with insulin. Dyslipidemia. -------- LABS, PRIOR TESTS, PROCEDURES, and SURGERY: Catheterization with coronary intervention (04/08/2021). -------- PROCEDURE IN DETAIL: Study status: Cardiac cath: elective. Consent: The risks, benefits, and alternatives to the procedure and sedation wer e explained to the patient and informed consent was obtained. Fluorosco py time: Fluoroscopy time: 17.3 min. Fluoroscopy dose: Fluoroscopy do se: 62.6 cGy. Location: Catheterization laboratory. PROCEDURE: 1. Initial setup. The patient was brought to the laboratory. A baseline ECG was recorded. Intravenous access was obtained. Surface ECG leads, blood pressure measurements, and pulse oximetric signals were monitored. 2. Skin preparation. The planned puncture sites were prepped and draped in the usual sterile manner. 3. Local anesthesia. 1% lidocaine was administered to the right radial artery access site. 4. Right radial artery access. A 6Fr/10cm Glidesheath Slender sheath was advanced into the vessel. 5. Selective right coronary angiography. A 5Fr x 100cm JR4 catheter was advanced into the right coronary vessel ostium under fluoroscopic guidance. Contrast was injected. Images were obtained in multiple projections. 6. Selective left coronary angiography. A 6Fr x 100cm L (more content not included)... Normal [employer] Glucose,Bedsideon 04-29-2021 Glucose [Mass/Vol] 119 mg/dL High 70-100 [employer] Comment on above: Result Comment: Test performed by glucose meter. Results may be 10%-15% lower than serum/plasma values. (CLIA ID [id number]) Performed By: #### T SH5, MBF33, CKMBS, LIPD2 #### [employer] [address] [place] [id number] POCT GlucoseOrdered By: Adriana Minor on 04-29-2021 Glucose [Mass/Vol] 119 mg/dL High 70 - 100 mg/dL [employer] Work Phone: Comment on above: Test performed by gl ucose meter. Results may be 10%-15% lower than serum/plasma values. (CLIA ID [id number]) Interpretation and review of laboratory results Abnormal [facility] Work Phone: [phone] Test Performed by [employer] [address] [place] [id number] [facility] Work Phone: [phone] [facility] Work Phone: [phone] ACT,Whole Bloodon 04-09-2021 ACT,Whole Blood 305 s High 90-134 [facility] Comment on above: Result Comment: ACTB O Performed by [employer] EliteCLIA ID: [id number] [place], [place] ACT testing is not intended for patients taking aprotonin, patients with hematocrits of <20% or >55%, patients using other types of anticoagulation medications, and patients with Lupus Anticoagulant. Performed By: #### T SH5, MBF33, CKMBS, LIPD2 #### [employer] [address] [place] [address] ACT,Whole Blood 237 s High 90-134 [facility] Comment on above: Result Comment: ACTB O Performed by [employer] EliteCLIA ID: [id number] [place], [place] ACT testing is not intended for patients taking aprotonin, patients with hematocrits of <20% or >55%, patients using other types of anticoagulation medications, and patients with Lupus Anticoagulant. Performed By: #### A CTBO #### [employer] [address] [place] [address] ACT,Whole Blood 367 s High 90-134 [facility] Comment on above: Result Comment: ACTB O Performed by [employer] EliteCLIA ID: [id number] [place], [place] ACT testing is not intended for patients taking aprotonin, patients with hematocrits of <20% or >55%, patients using other types of anticoagulation medications, and patients with Lupus Anticoagulant. Performed By: #### A CTBO #### [employer] [address] [place] [address] APTTon 04-09-2021 aPTT Coag (Bld) [Time] 26.3 s Normal 20.0-30.5 [facility] Comment on above: Result Comment: NOTE : The therapeutic time for Heparin anticoagulation, based on Xa activity inhibition, is an APTT of 46-80 seconds. Performed By: #### T SH5, MBF33, CKMBS, LIPD2 #### [place] [address] [place] [address] APTTOrdered By: Emmie shah on 04-09-2021 aPTT Coag (Bld) [Time] 26.3 s 20.0 - 30.5 s [facility] Work Phone: Comment on above: NOTE: The therapeuti c time for Heparin anticoagulation, based on Xa activity inhibition, is an APTT of 46-80 seconds. Test Performed by [facility] [facility], [address] [place] [address] [facility] Work Phone: Activated clotting timeOrder ed By: Johnathan Stubbs on 04-09-2021 Activated Clotting Time 305 s High 90 - 134 s S [facility] Work Phone: Comment on above: ACTBO Performed by [employer] EliteCLIA ID: [id number] [facility] [place] ACT testing is not intended for patients taking aprotonin, patients with hematocrits of <20% or >55%, patients using other types of anticoagulation medications, and patients with Lupus Anticoagulant. Interpretation and review of laboratory results Abnormal [facility] Work Phone: Test Performed by [employer] [address] [place] [address] [employer] Work Phone: Activated Clotting Time 367 s High 90 - 134 s S [facility] Work Phone: Comment on above: ACTBO Performed by [employer] EliteCLIA ID: [id number] [facility] [place] ACT testing is not intended for patients taking aprotonin, patients with hematocrits of <20% or >55%, patients using other types of anticoagulation medications, and patients with Lupus Anticoagulant. Activated Clotting Time 237 s High 90 - 134 s S [facility] Work Phone: Comment on above: ACTBO Performed by [employer] EliteCLIA ID: [id number] [facility] [place] ACT testing is not intended for patients taking aprotonin, patients with hematocrits of <20% or >55%, patients using other types of anticoagulation medications, and patients with Lupus Anticoagulant. Interpretation and review of laboratory results Abnormal [employer] Work Phone: Test Performed by [employer] [address] [facility] Work Phone: CBC Auto DifferentialOrdered By: Emmie Spring on 04-09-2021 Absolute Baso # 0.1 10*3/uL 0.0 - 0.2 10*3/uL [employer] Work Phone: Absolute Neut # 5.5 10*3/uL 1.8 - 7.0 10*3/uL [employer] Work Phone: Basophils/100 WBC (Bld) 0.9 % 0.0 - 2.0 % [employer] Work Phone: Eosinophils (Bld) [#/Vol] 0.4 10*3/uL 0. 0 - 0.5 10*3/uL [employer] Work Phone: Eosinophils/100 WBC (Bld) 4.1 % 1.0 - 6.0 % [employer] Work Phone: Granulocytes/100 WBC (Bld) 63.0 % 40.0 - 80.0 % [employer] Work Phone: Hematocrit (Bld) [Volume fraction] 38.8 % 35.0 - 47.0 % [employer] Work Phone: Hemoglobin.gastrointestin al spec 1 Ql (Stl) 12.8 g/dL 11.7 - 16.0 g/dL [employer] Work Phone: Interpretation and review of laboratory results Abnormal [employer] Work Phone: Lymphocytes (Bld) [#/Vol] 2.2 10*3/uL 1. 0 - 4.3 10*3/uL [employer] Work Phone: [phone] Lymphocytes/100 WBC (Bld) 24.9 % 20 .0 - 40.0 % [employer] Work Phone: MCH (RBC) [Entitic mass] 28.0 pg 26. 0 - 34.0 pg [employer] Work Phone: MCHC (RBC) [Mass/Vol] 33.0 % 32.0 - 36.0 % [employer] Work Phone: MCV (RBC) [Entitic vol] 84.8 fL 79.0 - 98.0 fL [employer] Work Phone: Monocytes (Bld) [#/Vol] 0.6 10*3/uL 0.0 - 0.8 10*3/uL [employer] Work Phone: Monocytes/100 WBC (Bld) 7.1 % 2.0 - 10.0 % [employer] Phone: Platelet distribution width (Bld) [Ratio] 15.3 % High 11.5 - 14.5 % [employer] Phone: Platelet mean volume (Bld) [Entitic vol] 11.0 fL High 7.4 - 10.4 fL [employer] Work Phone: Platelets (Bld) [#/Vol] 184 10*3/uL 140 - 440 10*3/uL [employer] Work Phone: RBC (Bld) [#/Vol] 4.57 10*6/uL 3.80 - 5.2 0 10*6/uL [employer] Work Phone: WBC (Bld) [#/Vol] 8.8 10*3/uL 3.6 - 10.7 10*3/uL [employer] Work Phone: Test Performed by [employer] [address] [facility] Work Phone: Catheterization and angiogra phy procedure details panelOrdered By: Adriana Minor on 04-09-2021 [facility] -------- CARDIAC CATHETERIZATION Patient: Indira Hatch Procedure Date: 04/08/2021 : 1950 Age: 70 Gender: F Patient Type: Inpatient Procedure physician: Adriana Minor MD Fellow: Referring Physician: Adriana Minor MD -------- INDICATIONS: Non ST elevated myocardial infarction. Cardiomyopathy. Atherosclerotic coronary artery disease. Recent cath/staged procedure. -------- Procedures performed: # Left heart catheterization. # Left coronary angiography. # Percutaneous intervention on the 90% stenosis in the mid LAD. Balloon angioplasty. Stent placement. Interventional IVUS examination. # Percutaneous intervention on the 95% stenosis in the proximal LAD. Interventional IVUS examination (unsuccessful attempt). Rotational atherectomy. Balloon angioplasty. Balloon angioplasty. Balloon angioplasty. Stent placement. Balloon angioplasty. Interventional IVUS examination. -------- SUMMARY: 70yo female diabetic smoker presented to [facility] with acute systolic HF and had small NSTEMI. Prior symptoms c/w ACS/AMI 2wks prior to admission. EKG c/w recent anterior VT. Cath showed heavily calcified proximal LAD with severe diffuse stenosis of proximal-midLAD, severe mul tifocal calcified stenoses of the LCx/OM, and mild-moderate diffuse dise ase of the dominant RCA. Severely reduced LV systolic function, EF 20-35 % by LVgram, echo, and MRI with wall motion abnormality in the LAD abraham tory. Following cardiac MRI and Heart Team evaluation, decision made to proceed with PCI of LAD and LCx. IMPRESSIONS: 1. Successful IVUS-guided PCI of heavily calcified proximal-midLAD with CSI atherectomy, extensive PTCA and deployment of 2 overlapped Xience JESUS (3.0x38mm proximal, 2.5x38mm mid), proximally post-dilated with a 3.25mm NC balloon. 2. Severe multifocal stenoses of proximal-mid LCx and proximal OM1. Mild disease of LMCA. 3. Normal LVEDP; no . RECOMMENDATIONS: 1. Tobacco cessation counseling should be done. 2. Patient management should include aggressive risk factor modification. 3. Patient management should include aggressive medical management of CAD and a cardiac rehabilitation program. The patient was counseled regarding the importance of adherence to the prescribed antiplatelet therapy and a low fat diet. 4. Add optimal medical therapy of the patient's CAD and ischemic cardiomyopathy. 5. Add statin therapy. 6. Add beta blockers. 7. Add XUAN inhibitors. 8. Ticagrelor (Brilinta), 90mgPObid, for 12 mon, minimum. 9. Aspirin, 81mgPOdaily, indefinitely. 10. Plan staged PCI of the LCx/OM in a few weeks. Plan to reassess EF in 90days on maximal medical therapy. -------- HISTORY: Risk factors: Hypertension. Diabetes mellitus; on therapy with insulin. Dyslipidemia. -------- PROCEDURE IN DETAIL: Study status: Cardiac cath: urgent. Consent: The risks, benefits, and alternatives to the procedure and sedation were explained to the patient and informed consent was obtained. Fluoroscop y time: Fluoroscopy time: 21.4 min. Fluoroscopy dose: Fluoroscopy dos e: 133.8 cGy. Location: Catheterization laboratory. PROCEDURE: 1. Initial setup. The patient was brought to the laboratory. A baseline ECG was recorded. Intravenous access was obtained. Surface ECG leads, blood pressure measurements, and pulse oximetric signals were monitored. 2. Skin preparation. The planned puncture sites were prepped and draped in the usual sterile manner. 3. Local anesthesia. 1% lidocaine was administered to the right radial artery access site. 4. Right radial artery access. A 6Fr/10cm Glidesheath Slender sheath was advanced into the vessel. 5. Left heart catheterization. A 6Fr x 100cm Launcher EBU3.75 catheter was advanced across the aortic valve to the left ventricle under fluoroscopic guidance. Resting hemodynamics were obtained. 6. Selective left coronary angiography. A 6Fr x 100cm Launcher EBU3.75 catheter was advanced into the left coronary vessel ostium under fluoroscopic guidance. Contrast was injected. Images were obtained in multiple projections. 7. A stent was placed in the stenosis in the mid LAD. See detailed description below (1st lesion intervention). 8. A stent was placed in the stenosis in the proximal LAD. See detailed description below (2nd (more content not included)... [facility] Work Phone: Nikita, [facility] Incoming Cardiology Results From Isabel/Noah - 04/09/2021 1:10 AM EDT [facility] [place] -------- CARDIAC CATHETERIZATION Patient: Indira Hatch Procedure Date: 04/08/2021 : 1950 Age: 70 Gender: F Patient Type: Inpatient Procedure physician: Adriana Minor MD Fellow: Referring Physician: Adriana Minor MD -------- INDICATIONS: Non ST elevated myocardial infarction. Cardiomyopathy. Atherosclerotic coronary artery disease. Recent cath/staged procedure. -------- Procedures performed: # Left heart catheterization. # Left coronary angiography. # Percutaneous intervention on the 90% stenosis in the mid LAD. Balloon angioplasty. Stent placement. Interventional IVUS examination. # Percutaneous intervention on the 95% stenosis in the proximal LAD. Interventional IVUS examination (unsuccessful attempt). Rotational atherectomy. Balloon angioplasty. Balloon angioplasty. Balloon angioplasty. Stent placement. Balloon angioplasty. Interventional IVUS examination. -------- SUMMARY: 70yo female diabetic smoker presented to [facility] with acute systolic HF and had small NSTEMI. Prior symptoms c/w ACS/AMI 2wks prior to admission. EKG c/w recent anterior VT. Cath showed heavily calcified proximal LAD with severe diffuse stenosis of proximal-midLAD, severe mul tifocal calcified stenoses of the LCx/OM, and mild-moderate diffuse dise ase of the dominant RCA. Severely reduced LV systolic function, EF 20-35 % by LVgram, echo, and MRI with wall motion abnormality in the LAD abraham tory. Following cardiac MRI and Heart Team evaluation, decision made to proceed with PCI of LAD and LCx. IMPRESSIONS: 1. Successful IVUS-guided PCI of heavily calcified proximal-midLAD with CSI atherectomy, extensive PTCA and deployment of 2 overlapped Xience JESUS (3.0x38mm proximal, 2.5x38mm mid), proximally post-dilated with a 3.25mm NC balloon. 2. Severe multifocal stenoses of proximal-mid LCx and proximal OM1. Mild disease of LMCA. 3. Normal LVEDP; no . RECOMMENDATIONS: 1. Tobacco cessation counseling should be done. 2. Patient management should include aggressive risk factor modification. 3. Patient management should include aggressive medical management of CAD and a cardiac rehabilitation program. The patient was counseled regarding the importance of adherence to the prescribed antiplatelet therapy and a low fat diet. 4. Add optimal medical therapy of the patient's CAD and ischemic cardiomyopathy. 5. Add statin therapy. 6. Add beta blockers. 7. Add XUAN inhibitors. 8. Ticagrelor (Brilinta), 90mgPObid, for 12 mon, minimum. 9. Aspirin, 81mgPOdaily, indefinitely. 10. Plan staged PCI of the LCx/OM in a few weeks. Plan to reassess EF in 90days on maximal medical therapy. -------- HISTORY: Risk factors: Hypertension. Diabetes mellitus; on therapy with insulin. Dyslipidemia. -------- PROCEDURE IN DETAIL: Study status: Cardiac cath: urgent. Consent: The risks, benefits, and alternatives to the procedure and sedation were explained to the patient and informed consent was obtained. Fluoroscop y time: Fluoroscopy time: 21.4 min. Fluoroscopy dose: Fluoroscopy dos e: 133.8 cGy. Location: Catheterization laboratory. PROCEDURE: 1. Initial setup. The patient was brought to the laboratory. A baseline ECG was recorded. Intravenous access was obtained. Surface ECG leads, blood pressure measurements, and pulse oximetric signals were monitored. 2. Skin preparation. The planned puncture sites were prepped and draped in the usual sterile manner. 3. Local anesthesia. 1% lidocaine was administered to the right radial artery access site. 4. Right radial artery access. A 6Fr/10cm Glidesheath Slender sheath was advanced into the vessel. 5. Left heart catheterization. A 6Fr x 100cm Launcher EBU3.75 catheter was advanced across the aortic valve to the left ventricle under fluoroscopic guidance. Resting hemodynamics were obtained. 6. Selective left coronary angiography. A 6Fr x 100cm Launcher EBU3.75 catheter was advanced into the left coronary vessel ostium under fluoroscopic guidance. Contrast was injected. Images were obtained in multiple projections. 7. A stent was placed in the stenosis in the mid LAD. See detailed description below (1st lesion intervention). 8. A stent was placed in the stenosis in the proximal LAD. See detailed description below (2nd lesion (more content not included)... [facility] Work Phone: Comp Panel with Mg Reflexon 04-09-2021 Calcium [Mass/Vol] 10.1 mg/dL Normal 8.4-10.4 [facility] Comment on above: Performed By: #### T SH5, MBF33, CKMBS, LIPD2 #### [facility] [address], [place] ALP [Catalytic activity/Vol] 45 U/L Normal 38-126 [facility] Comment on above: Performed By: #### T SH5, MBF33, CKMBS, LIPD2 #### [facility] [address] [place] [address] ALT [Catalytic activity/Vol] 31 U/L Normal 0-34 [facility] Comment on above: Result Comment: The ALT test is performed by an updated assay method. Please note that the reference intervals have been changed and are now sex specific. Performed By: #### T SH5, MBF33, CKMBS, LIPD2 #### [facility] [address] [place] [address] Anion gap [Moles/Vol] 11 mmol/L Normal 3-[address] [facility] Comment on above: Performed By: #### T SH5, MBF33, CKMBS, LIPD2 #### [place] [address] [place], [place] AST [Catalytic activity/Vol] 37 U/L Normal 15-46 [facility] Comment on above: Performed By: #### T SH5, MBF33, CKMBS, LIPD2 #### [place] [address] [place], [place] Bilirubin [Mass/Vol] 1.5 mg/dL High 0.2-1.3 [facility] Comment on above: Performed By: #### T SH5, MBF33, CKMBS, LIPD2 #### [place] [address] [place], [place] CO2 [Moles/Vol] 23 mmol/L Normal 22-30 [facility] Comment on above: Performed By: #### T SH5, MBF33, CKMBS, LIPD2 #### [place] [address] [place], [place] Creatinine [Mass/Vol] 0.85 mg/dL Normal 0.52-1.[address] [facility] Comment on above: Performed By: #### T SH5, MBF33, CKMBS, LIPD2 #### [place] [address] [place], [place] GFR/1.73 sq M.predicted among blacks MDRD (S/P/Bld) [Vol rate/Area] 79.7 mL/min/{1.73_m2} Normal >60 [facility] Comment on above: Performed By: #### T SH5, MBF33, CKMBS, LIPD2 #### [place] [address] [place], [place] GFR/1.73 sq M.predicted among non-blacks MDRD (S/P/Bld) [Vol rate/Area] 68.7 mL/min/{1.73_m2} Normal >60 [facility] Comment on above: Result Comment: KDIG O guidelines provide the following GFR categories: Stage GFR(ml/min/1.73 m2) Terms G1 >=90 Normal or high G2 60-89 Mildly decreased* G3a 45-59 Mildly to moderately decreased G3b 30-44 Moderately to severely decreased G4 15-29 Severely decreased G5 <15 Kidney failure *Relative to young adult level. In the absence of evidence of kidney damage, neither GFR category G1 nor G2 fulfill the criteria for CKD. The CKD-EPI equation is validated in individuals 18 years of age and older. Currently the best equation for estimating glomerular filtration rate (GFR) from serum creatinine in children is the Bedside Murcia equation. It is less accurate in patients with extremes of muscle mass, restriction of dietary protein, ingestion of creatine, extra-renal metabolism of creatinine, or treatment with medications that affect renal tubular creatinine secretion. Performed By: #### T TRACE, HARISHF33, CKMBS, LIPD2 #### [facility] [address] [place] [address] Glucose [Mass/Vol] 152 mg/dL High 70-100 [facility] Comment on above: Performed By: #### T TRACE, MBF33, CKMBS, LIPD2 #### [place] [address] [place] [address] Protein [Mass/Vol] 7.6 g/dL Normal 6.3-8.2 [facility] Comment on above: Performed By: #### T TRACE, MBF33, CKMBS, LIPD2 #### [address] [address] Urea nitrogen [Mass/Vol] 22 mg/dL High 7-20 [facility] Comment on above: Performed By: #### T TRACE, MBF33, CKMBS, LIPD2 #### [place] [address] [place] [address] Potassium [Moles/Vol] 4.3 mmol/L Normal 3.5-5.[address] [facility] Comment on above: Performed By: #### T SH5, MBF33, CKMBS, LIPD2 #### [place] [address] [place] [address] Albumin [Mass/Vol] 4.3 g/dL Normal 3.5-5.0 [facility] Comment on above: Performed By: #### T SH5, MBF33, CKMBS, LIPD2 #### [facility] [employer] [facility] [address] [place], [place] Chloride [Moles/Vol] 104 mmol/L Normal 98-107 [facility] Comment on above: Performed By: #### T SH5, MBF33, CKMBS, LIPD2 #### [facility] [address] [place], [place] Sodium [Moles/Vol] 138 mmol/L Normal 135-145 [facility] Comment on above: Performed By: #### T SH5, MBF33, CKMBS, LIPD2 #### [facility] [address] [place], [place] Comprehensive Metabolic Pane l w/ Reflex to MGOrdered By: Emily Greenwood on 04-09-2021 Albumin [Mass/Vol] 4.3 g/dL 3.5 - 5.0 g/dL [facility] Work Phone: [phone] ALP (Bld) [Catalytic activity/Vol] 45 U/L 38 - 126 U/L [facility] Work Phone: [phone] ALT [Catalytic activity/Vol] 31 U/L 0 - 34 U/L [facility] Work Phone: [phone] Comment on above: The ALT test is perf ormed by an updated assay method. Please note that the reference intervals have been changed and are now sex specific. Anion gap [Moles/Vol] 11 mmol/L 3 - 13 mmol/L [facility] Work Phone: [phone] AST [Catalytic activity/Vol] 37 U/L 15 - 46 U/L [facility] Work Phone: [phone] Bilirubin [Mass/Vol] 1.5 mg/dL High 0.2 - 1 .3 mg/dL [facility] Work Phone: [phone] Calcium [Mass/Vol] 10.1 mg/dL 8.4 - 10. 4 mg/dL [facility] Work Phone: Chloride [Moles/Vol] 104 mmol/L 98 - 10 7 mmol/L [facility] Work Phone: [phone] CO2 [Moles/Vol] 23 mmol/L 22 - 30 mmol/L [facility] Work Phone: Creatinine [Mass/Vol] 0.85 mg/dL 0.52 - 1.25 mg/dL [facility] Work Phone: EGFR IF NonAfrican Swiss 68.7 mL/min >60 [facility] Work Phone: [phone] Comment on above: KDIGO guidelines pro vide the following GFR categories: Stage GFR(ml/min/1.73 m2) Terms G1 >=90 Normal or high G2 60-89 Mildly decreased* G3a 45-59 Mildly to moderately decreased G3b 30-44 Moderately to severely decreased G4 15-29 Severely decreased G5 <15 Kidney failure *Relative to young adult level. In the absence of evidence of kidney damage, neither GFR category G1 nor G2 fulfill the criteria for CKD. The CKD-EPI equation is validated in individuals 18 years of age and older. Currently the best equation for estimating glomerular filtration rate (GFR) from serum creatinine in children is the Bedside Murcia equation. It is less accurate in patients with extremes of muscle mass, restriction of dietary protein, ingestion of creatine, extra-renal metabolism of creatinine, or treatment with medications that affect renal tubular creatinine secretion. Free PSA/Total PSA [Mass fraction] 7.6 g/dL 6.3 - 8.2 g/dL [facility] Work Phone: GFR/1.73 sq M.predicted among blacks MDRD (S/P/Bld) [Vol rate/Area] 79.7 mL/min/{1.73_m2} >60 [facility] Work Phone: Glucose [Mass/Vol] 152 mg/dL High 70 - 100 mg/dL [facility] Work Phone: [phone] Potassium [Moles/Vol] 4.3 mmol/L 3.5 - 5.1 mmol/L [facility] Work Phone: [phone] Sodium [Moles/Vol] 138 mmol/L 135 - 145 mmol/L [facility] Work Phone: [phone] Urea nitrogen (BldV) [Mass/Vol] 22 mg/dL High 7 - 20 mg/dL [facility] Work Phone: Glucose,Bedsideon 05-12-2021 Glucose [Mass/Vol] 143 mg/dL High 70-100 [facility] Comment on above: Result Comment: Test performed by glucose meter. Results may be 10%-15% lower than serum/plasma values. (CLIA ID [id number]) Performed By: #### T SH5, MBF33, CKMBS, LIPD2 #### [place] [address] [place], [place] Glucose [Mass/Vol] 175 mg/dL High 70-100 [facility] Comment on above: Result Comment: Test performed by glucose meter. Results may be 10%-15% lower than serum/plasma values. (CLIA ID [id number]) Performed By: #### T SH5, MBF33, CKMBS, LIPD2 #### [place] [address] [place], [place] Hemogram w/ Autodiffon 04-09 Abs Baso Cnt 0.1 10*3/uL Normal 0.0-0.2 [facility] Comment on above: Performed By: #### T SH5, MBF33, CKMBS, LIPD2 #### [place] [address] [place], [place] Abs Neutrophile Cnt 5.5 10*3/uL Normal 1.8-7.0 [facility] Comment on above: Performed By: #### T SH5, MBF33, CKMBS, LIPD2 #### [place] [address] [place], [place] Basophils/100 WBC (Bld) 0.9 % Normal 0.0-2.0 [facility] Comment on above: Performed By: #### T SH5, MBF33, CKMBS, LIPD2 #### [place] [address] [place], [place] Eosinophils (Bld) [#/Vol] 0.4 10*3/uL Normal 0.0-0.5 [facility] Comment on above: Performed By: #### T SH5, MBF33, CKMBS, LIPD2 #### [place] [address] [place], [place] Eosinophils/100 WBC (Bld) 4.1 % Normal 1.0-6.0 [facility] Comment on above: Performed By: #### T SH5, MBF33, CKMBS, LIPD2 #### [place] [address] [place], [place] Erythrocyte distribution width (RBC) [Ratio] 15.3 % High 11.5-14.5 [facility] Comment on above: Performed By: #### T SH5, MBF33, CKMBS, LIPD2 #### [place] [address] [place], [place] Granulocytes/100 WBC (Bld) 63.0 % Normal 40.0-80.0 [facility] Comment on above: Performed By: #### T SH5, MBF33, CKMBS, LIPD2 #### [place] [address] [place], [place] Hematocrit (Bld) [Volume fraction] 38.8 % Normal 35.0-47.0 [facility] Comment on above: Performed By: #### T SH5, MBF33, CKMBS, LIPD2 #### [place] [address] [place], [place] Hemoglobin (Bld) [Mass/Vol] 12.8 g/dL Normal 11.7-16.0 [facility] Comment on above: Performed By: #### T SH5, MBF33, CKMBS, LIPD2 #### [place] [address] [place], [place] Lymphocytes (Bld) [#/Vol] 2.2 10*3/uL Normal 1.0-4.3 [facility] Comment on above: Performed By: #### T SH5, MBF33, CKMBS, LIPD2 #### [address] [address] Lymphocytes/100 WBC (Bld) 24.9 % Normal 20.0-40.0 [facility] Comment on above: Performed By: #### T SH5, MBF33, CKMBS, LIPD2 #### [place] [address] [place], [place] MCH (RBC) [Entitic mass] 28.0 pg Normal 26.0-34.0 [facility] Comment on above: Performed By: #### T SH5, MBF33, CKMBS, LIPD2 #### [place] [address] [place], [place] MCHC 33.0 % Normal 32.0-36.0 [facility] Comment on above: Performed By: #### T SH5, MBF33, CKMBS, LIPD2 #### [place] [address] [place], [place] MCV (RBC) [Entitic vol] 84.8 fL Normal 79.0-98.0 [facility] Comment on above: Performed By: #### T SH5, MBF33, CKMBS, LIPD2 #### [address] Monocytes (Bld) [#/Vol] 0.6 10*3/uL Normal 0.0-0.8 [facility] Comment on above: Performed By: #### T SH5, MBF33, CKMBS, LIPD2 #### [place] [address] [place], [place] Monocytes/100 WBC (Bld) 7.1 % Normal 2.0-10.0 [facility] Comment on above: Performed By: #### T SH5, MBF33, CKMBS, LIPD2 #### [place] [address] [place], [place] Platelet mean volume (Bld) [Entitic vol] 11.0 fL High 7.4-10.4 [facility] Comment on above: Performed By: #### T SH5, MBF33, CKMBS, LIPD2 #### [place] [address] [place], [place] Platelets (Bld) [#/Vol] 184 10*3/uL Normal 140-440 [facility] Comment on above: Performed By: #### T SH5, MBF33, CKMBS, LIPD2 #### [place] [address] [place], [place] RBC (Bld) [#/Vol] 4.57 10*6/uL Normal 3.80-5.20 [facility] Comment on above: Performed By: #### T SH5, MBF33, CKMBS, LIPD2 #### [place] [address] [place], [place] WBC (Bld) [#/Vol] 8.8 10*3/uL Normal 3.6-10.7 [facility] Comment on above: Performed By: #### T SH5, MBF33, CKMBS, LIPD2 #### [address] Magnesiumon 04-09-2021 Magnesium [Mass/Vol] 1.8 mg/dL Normal 1.6-2.3 [facility] Comment on above: Performed By: #### T SH5, MBF33, CKMBS, LIPD2 #### [place] [address] [place], [place] MagnesiumOrdered By: Silvano Spring on 04-09-2021 Magnesium [Mass/Vol] 1.8 mg/dL 1.6 - 2 .3 mg/dL [facility] Work Phone: No Panel InformationOrdered By: Emmie Spring on 04-09-2021 Interpretation and review of laboratory results Abnormal [facility] Work Phone: Test Performed by [facility] [id number] [place], [place] [address] Work Phone: POCT GlucoseOrdered By: Kristopher Stubbs on 04-09-2021 Glucose [Mass/Vol] 143 mg/dL High 70 - 100 mg/dL [facility] Work Phone: Comment on above: Test performed by ucose meter. Results may be 10%-15% lower than serum/plasma values. (CLIA ID [id number]) Interpretation and review of laboratory results Abnormal [facility] Work Phone: Test Performed by [id number] [place] [address] Work Phone: Phosphoruson 04-09-2021 Phosphate [Mass/Vol] 4.9 mg/dL High 2.5-4.5 [facility] Comment on above: Performed By: #### T SH5, MBF33, CKMBS, LIPD2 #### [facility] [address] [place] [address] PhosphorusOrdered By: Brennen Spring on 04-09-2021 Phosphate [Mass/Vol] 4.9 mg/dL High 2.5 - 4 .5 mg/dL [facility] Work Phone: Basic Metabolic Panelon 03-29 Anion gap [Moles/Vol] 10 mmol/L Normal 3-[address] [facility] Comment on above: Performed By: #### B GLU #### [place] [address] [place] [address] Calcium [Mass/Vol] 10.2 mg/dL Normal 8.4-10.4 [facility] Comment on above: Performed By: #### B GLU #### [place] [address] [place] [address] CO2 [Moles/Vol] 25 mmol/L Normal 22-30 [facility] Comment on above: Performed By: #### B GLU #### [facility] [address] [place] [address] Creatinine [Mass/Vol] 0.85 mg/dL Normal 0.52-1.[address] [facility] Comment on above: Performed By: #### B GLU #### [facility] [address] [place] [address] GFR/1.73 sq M.predicted among blacks MDRD (S/P/Bld) [Vol rate/Area] 79.7 mL/min/{1.73_m2} Normal >60 [facility] Comment on above: Performed By: #### B GLU #### [facility] [address] [place] [address] GFR/1.73 sq M.predicted among non-blacks MDRD (S/P/Bld) [Vol rate/Area] 68.7 mL/min/{1.73_m2} Normal >60 [facility] Comment on above: Result Comment: KDIG O guidelines provide the following GFR categories: Stage GFR(ml/min/1.73 m2) Terms G1 >=90 Normal or high G2 60-89 Mildly decreased* G3a 45-59 Mildly to moderately decreased G3b 30-44 Moderately to severely decreased G4 15-29 Severely decreased G5 <15 Kidney failure *Relative to young adult level. In the absence of evidence of kidney damage, neither GFR category G1 nor G2 fulfill the criteria for CKD. The CKD-EPI equation is validated in individuals 18 years of age and older. Currently the best equation for estimating glomerular filtration rate (GFR) from serum creatinine in children is the Bedside Murcia equation. It is less accurate in patients with extremes of muscle mass, restriction of dietary protein, ingestion of creatine, extra-renal metabolism of creatinine, or treatment with medications that affect renal tubular creatinine secretion. Performed By: #### B GLU #### [place] [address] [place], [place] Glucose [Mass/Vol] 133 mg/dL High 70-100 [facility] Comment on above: Performed By: #### B GLU #### [place] [address] [place], [place] Urea nitrogen [Mass/Vol] 21 mg/dL High 7-20 [facility] Comment on above: Performed By: #### B GLU #### [place] [address] [place], [place] Chloride [Moles/Vol] 104 mmol/L Normal 98-107 [facility] Comment on above: Performed By: #### B GLU #### [place] [address] [place], [place] Potassium [Moles/Vol] 4.5 mmol/L Normal 3.5-5.[address] [facility] Comment on above: Performed By: #### B GLU #### [place] [address] [place], [place] Sodium [Moles/Vol] 139 mmol/L Normal 135-145 [facility] Comment on above: Performed By: #### B GLU #### [place] [address] [place] [address] Basic Metabolic PanelOrdered By: Emmie Spring on 04-08-2021 Anion gap [Moles/Vol] 10 mmol/L 3 - 13 mmol/L [facility] Work Phone: Calcium [Mass/Vol] 10.2 mg/dL 8.4 - 10. 4 mg/dL [facility] Work Phone: Chloride [Moles/Vol] 104 mmol/L 98 - 10 7 mmol/L [facility] Work Phone: CO2 [Moles/Vol] 25 mmol/L 22 - 30 mmol/L [facility] Work Phone: Creatinine [Mass/Vol] 0.85 mg/dL 0.52 - 1.25 mg/dL [facility] Work Phone: EGFR IF NonAfrican Swiss 68.7 mL/min >60 [facility] Work Phone: Comment on above: KDIGO guidelines pro vide the following GFR categories: Stage GFR(ml/min/1.73 m2) Terms G1 >=90 Normal or high G2 60-89 Mildly decreased* G3a 45-59 Mildly to moderately decreased G3b 30-44 Moderately to severely decreased G4 15-29 Severely decreased G5 <15 Kidney failure *Relative to young adult level. In the absence of evidence of kidney damage, neither GFR category G1 nor G2 fulfill the criteria for CKD. The CKD-EPI equation is validated in individuals 18 years of age and older. Currently the best equation for estimating glomerular filtration rate (GFR) from serum creatinine in children is the Bedside Murcia equation. It is less accurate in patients with extremes of muscle mass, restriction of dietary protein, ingestion of creatine, extra-renal metabolism of creatinine, or treatment with medications that affect renal tubular creatinine secretion. GFR/1.73 sq M.predicted among blacks MDRD (S/P/Bld) [Vol rate/Area] 79.7 mL/min/{1.73_m2} >60 [facility] Work Phone: Glucose [Mass/Vol] 133 mg/dL High 70 - 100 mg/dL [facility] Work Phone: Potassium [Moles/Vol] 4.5 mmol/L 3.5 - 5.1 mmol/L [facility] Work Phone: 1 Sodium [Moles/Vol] 139 mmol/L 135 - 145 mmol/L [facility] Work Phone: 1 Urea nitrogen (BldV) [Mass/Vol] 21 mg/dL High 7 - 20 mg/dL [facility] Work Phone: [phone] CBC Auto DifferentialOrdered By: Emmie Spring on 04-08-2021 Absolute Baso # 0.1 10*3/uL 0.0 - 0.2 10*3/uL [facility] Work Phone: Absolute Neut # 4.5 10*3/uL 1.8 - 7.0 10*3/uL [facility] Work Phone: Basophils/100 WBC (Bld) 1.3 % 0.0 - 2.0 % [facility] Work Phone: Eosinophils (Bld) [#/Vol] 0.4 10*3/uL 0. 0 - 0.5 10*3/uL [facility] Work Phone: Eosinophils/100 WBC (Bld) 5.2 % 1.0 - 6.0 % [facility] Work Phone: Granulocytes/100 WBC (Bld) 55.7 % 40.0 - 80.0 % [facility] Work Phone: Hematocrit (Bld) [Volume fraction] 36.1 % 35.0 - 47.0 % [facility] Work Phone: Hemoglobin.gastrointestin al spec 1 Ql (Stl) 11.9 g/dL 11.7 - 16.0 g/dL [facility] Work Phone: 1 Interpretation and review of laboratory results Abnormal [facility] Work Phone: Lymphocytes (Bld) [#/Vol] 2.4 10*3/uL 1. 0 - 4.3 10*3/uL [facility] Work Phone: Lymphocytes/100 WBC (Bld) 29.7 % 20 .0 - 40.0 % [facility] Work Phone: MCH (RBC) [Entitic mass] 28.2 pg 26. 0 - 34.0 pg [facility] Work Phone: 1 MCHC (RBC) [Mass/Vol] 33.0 % 32.0 - 36.0 % [employer] Work Phone: MCV (RBC) [Entitic vol] 85.6 fL 79.0 - 98.0 fL [employer] Work Phone: Monocytes (Bld) [#/Vol] 0.6 10*3/uL 0.0 - 0.8 10*3/uL [employer] Work Phone: Monocytes/100 WBC (Bld) 8.1 % 2.0 - 10.0 % [employer] Work Phone: Platelet distribution width (Bld) [Ratio] 15.6 % High 11.5 - 14.5 % [employer] Phone: Platelet mean volume (Bld) [Entitic vol] 10.8 fL High 7.4 - 10.4 fL [employer] Phone: Platelets (Bld) [#/Vol] 173 10*3/uL 140 - 440 10*3/uL [employer] Work Phone: RBC (Bld) [#/Vol] 4.22 10*6/uL 3.80 - 5.2 0 10*6/uL [employer] Work Phone: WBC (Bld) [#/Vol] 8.0 10*3/uL 3.6 - 10.7 10*3/uL [facility] Work Phone: Test Performed by [employer] [address] [place] [address] [employer] Work Phone: [phone] EKG 12 LeadOrdered By: Concha Spring on 04-08-2021 [employer] 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1950 Requested By: MARCUS NUÑEZ Order Number: [id number] Alex MD: Behzad Burks Measurements Intervals [place] Rate: 78 P: 22 WI: 186 QRS: -18 QRSD: 99 T: 117 QT: 388 QTc: 442 Interpretive Statements Sinus rhythm Borderline left axis deviation Low voltage, precordial leads Anteroseptal infarct, old Nonspecific T abnormalities, lateral leads Electronically Signed On 04-08-2021 13:54:38 EDT by Behzad BLEDSOE Work Phone: [facility], [facility] Incoming Cardiology Results From [employer] - 04/08/2021 1:55 PM EDT [facility] [employer] [facility] Test Date: 2021-04-08 Pat Name: INDIRA HATCH Department: [facility] Room: [facility] Gender: F 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 Results may be 10%-15% lower than serum/plasma values. (CLIA ID [id number]) Performed By: #### T SH5, MBF33, CKMBS, LIPD2 #### [employer] [facility] [place] [address] Glucose [Mass/Vol] 138 mg/dL High 70-100 [facility] Comment on above: Result Comment: Test performed by glucose meter. Results may be 10%-15% lower than serum/plasma values. (CLIA ID [id number]) Performed By: #### B GLU #### [employer] [facility] [place] [address] Hemogram w/ Autodiffon 04-08 Abs Baso Cnt 0.1 10*3/uL Normal 0.0-0.2 [facility] Comment on above: Performed By: #### B GLU #### [address] [place], [place] Abs Neutrophile Cnt 4.5 10*3/uL Normal 1.8-7.0 [facility] Comment on above: Performed By: #### B GLU #### [address] [place], [place] Basophils/100 WBC (Bld) 1.3 % Normal 0.0-2.0 S [facility] Comment on above: Performed By: #### B GLU #### [address] [place], [place] Eosinophils (Bld) [#/Vol] 0.4 10*3/uL Normal 0.0-0.5 [facility] Comment on above: Performed By: #### B GLU #### [address] [place], [place] Eosinophils/100 WBC (Bld) 5.2 % Normal 1.0-6.0 [facility] Comment on above: Performed By: #### B GLU #### [address] [place], [place] Erythrocyte distribution width (RBC) [Ratio] 15.6 % High 11.5-14.5 [facility] Comment on above: Performed By: #### B GLU #### [address] [place], [place] Granulocytes/100 WBC (Bld) 55.7 % Normal 40.0-80.0 [facility] Comment on above: Performed By: #### B GLU #### [address] [place], [place] Hematocrit (Bld) [Volume fraction] 36.1 % Normal 35.0-47.0 [facility] Comment on above: Performed By: #### B GLU #### [address] [place], [place] Hemoglobin (Bld) [Mass/Vol] 11.9 g/dL Normal 11.7-16.0 [facility] Comment on above: Performed By: #### B GLU #### [facility] [address] [place], [place] Lymphocytes (Bld) [#/Vol] 2.4 10*3/uL Normal 1.0-4.3 [facility] Comment on above: Performed By: #### B GLU #### [facility] [address] [place], [place] Lymphocytes/100 WBC (Bld) 29.7 % Normal 20.0-40.0 [facility] Comment on above: Performed By: #### B GLU #### [address] [place], [place] MCH (RBC) [Entitic mass] 28.2 pg Normal 26.0-34.0 [facility] Comment on above: Performed By: #### B GLU #### [address] [place] MCHC 33.0 % Normal 32.0-36.0 [facility] Comment on above: Performed By: #### B GLU #### [address] [place], [place] MCV (RBC) [Entitic vol] 85.6 fL Normal 79.0-98.0 [facility] Comment on above: Performed By: #### B GLU #### [address] [place] Monocytes (Bld) [#/Vol] 0.6 10*3/uL Normal 0.0-0.8 [facility] Comment on above: Performed By: #### B GLU #### [address] [place], [place] Monocytes/100 WBC (Bld) 8.1 % Normal 2.0-10.0 [facility] Comment on above: Performed By: #### B GLU #### [address] [place], [place] Platelet mean volume (Bld) [Entitic vol] 10.8 fL High 7.4-10.4 [facility] Comment on above: Performed By: #### B GLU #### [facility] [address] [place], [place] Platelets (Bld) [#/Vol] 173 10*3/uL Normal 140-440 [facility] Comment on above: Performed By: #### B GLU #### [facility] [address] [place], [place] RBC (Bld) [#/Vol] 4.22 10*6/uL Normal 3.80-5.20 [facility] Comment on above: Performed By: #### B GLU #### [address] [place], [place] WBC (Bld) [#/Vol] 8.0 10*3/uL Normal 3.6-10.7 [facility] Comment on above: Performed By: #### B GLU #### [address] [place], [place] Magnesiumon 04-08-2021 Magnesium [Mass/Vol] 1.8 mg/dL Normal 1.6-2.3 [facility] Comment on above: Performed By: #### B GLU #### [address] [place], [place] MagnesiumOrdered By: Silvano Spring on 04-08-2021 Magnesium [Mass/Vol] 1.8 mg/dL 1.6 - 2 .3 mg/dL [facility] Work Phone: No Panel InformationOrdered By: Emmie Spring on 04-08-2021 Interpretation and review of laboratory results Abnormal [facility] Work Phone: Test Performed by [facility] [employer], [facility] [place] [address] [facility] Work Phone: POCT GlucoseOrdered By: Kristopher Stubbs on 04-08-2021 Glucose [Mass/Vol] 175 mg/dL High 70 - 100 mg/dL [facility] Work Phone: Comment on above: Test performed by gl ucose meter. Results may be 10%-15% lower than serum/plasma values. (CLIA ID [id number]) Interpretation and review of laboratory results Abnormal [facility] Work Phone: Test Performed by [employer] [address] [place] [id number] [place], [place] [address]A Work Phone: [phone] Glucose [Mass/Vol] 84 mg/dL 70 - 100 mg/dL [facility] Work Phone: [phone] Comment on above: Test performed by gl ucose meter. Results may be 10%-15% lower than serum/plasma values. (CLIA ID [id number]) Test Performed by [employer] [address] [place] [address] [facility] Work Phone: [phone] Glucose [Mass/Vol] 138 mg/dL High 70 - 100 mg/dL [facility] Work Phone: [phone] Comment on above: Test performed by gl ucose meter. Results may be 10%-15% lower than serum/plasma values. (CLIA ID [id number]) Interpretation and review of laboratory results Abnormal [facility] Work Phone: [phone] Test Performed by [employer] [address] [place] [id number] [place], [place] [address] Work Phone: Phosphoruson 04-08-2021 Phosphate [Mass/Vol] 5.4 mg/dL High 2.5-4.5 [facility] Comment on above: Performed By: #### B GLU #### [facility] [employer] [address] PhosphorusOrdered By: Brennen Spring on 04-08-2021 Phosphate [Mass/Vol] 5.4 mg/dL High 2.5 - 4 .5 mg/dL [facility] Work Phone: [phone] APTTon 04-07-2021 aPTT Coag (Bld) [Time] 46.7 s High 20.0-30.5 [facility] Comment on above: Result Comment: NOTE : The therapeutic time for Heparin anticoagulation, based on Xa activity inhibition, is an APTT of 46-80 seconds. Performed By: #### B GLU #### [facility] [employer] [address] APTTOrdered By: Emmie shah on 04-07-2021 aPTT Coag (Bld) [Time] 46.7 s High 20.0 - 30.5 s [facility] Work Phone: Comment on above: NOTE: The therapeuti c time for Heparin anticoagulation, based on Xa activity inhibition, is an APTT of 46-80 seconds. Interpretation and review of laboratory results Abnormal [facility] Work Phone: Test Performed by [address] [address] [facility] Work Phone: Basic Metabolic Panelon 03-29 Anion gap [Moles/Vol] 6 mmol/L Normal 3-[address] [facility] Comment on above: Performed By: #### A CTBO #### [address] [address] [place], [place] Calcium [Mass/Vol] 9.5 mg/dL Normal 8.4-10.4 [facility] Comment on above: Performed By: #### A CTBO #### [address] [place], [place] CO2 [Moles/Vol] 25 mmol/L Normal 22-30 [facility] Comment on above: Performed By: #### A CTBO #### [address] [address] [place] [address] Glucose [Mass/Vol] 136 mg/dL High 70-100 [facility] Comment on above: Performed By: #### A CTBO #### [address] [place] [address] Urea nitrogen [Mass/Vol] 17 mg/dL Normal 7-20 [facility] Comment on above: Performed By: #### A CTBO #### [address] Creatinine [Mass/Vol] 0.66 mg/dL Normal 0.52-1.[address] [facility] Comment on above: Performed By: #### A CTBO #### [address] [place] [address] GFR/1.73 sq M.predicted among blacks MDRD (S/P/Bld) [Vol rate/Area] mL/min/{1.73_m2} Normal >60 [facility] Comment on above: Performed By: #### A CTBO #### [address] [address] GFR/1.73 sq M.predicted among non-blacks MDRD (S/P/Bld) [Vol rate/Area] 88.6 mL/min/{1.73_m2} Normal >60 [facility] Comment on above: Result Comment: KDIG O guidelines provide the following GFR categories: Stage GFR(ml/min/1.73 m2) Terms G1 >=90 Normal or high G2 60-89 Mildly decreased* G3a 45-59 Mildly to moderately decreased G3b 30-44 Moderately to severely decreased G4 15-29 Severely decreased G5 <15 Kidney failure *Relative to young adult level. In the absence of evidence of kidney damage, neither GFR category G1 nor G2 fulfill the criteria for CKD. The CKD-EPI equation is validated in individuals 18 years of age and older. Currently the best equation for estimating glomerular filtration rate (GFR) from serum creatinine in children is the Bedside Murcia equation. It is less accurate in patients with extremes of muscle mass, restriction of dietary protein, ingestion of creatine, extra-renal metabolism of creatinine, or treatment with medications that affect renal tubular creatinine secretion. Performed By: #### A CTBO #### [address] [place] [address] Chloride [Moles/Vol] 107 mmol/L Normal 98-107 [facility] Comment on above: Performed By: #### A CTBO #### [address] [place] [address] Potassium [Moles/Vol] 4.0 mmol/L Normal 3.5-5.[address] [facility] Comment on above: Performed By: #### A CTBO #### [address] [place] [address] Sodium [Moles/Vol] 137 mmol/L Normal 135-145 [facility] Comment on above: Performed By: #### A CTBO #### [facility] [address] [place] [address] Basic Metabolic PanelOrdered By: Emmie Spring on 04-07-2021 Anion gap [Moles/Vol] 6 mmol/L 3 - 13 mmol/L [facility] Work Phone: Calcium [Mass/Vol] 9.5 mg/dL 8.4 - 10. 4 mg/dL [facility] Work Phone: [phone] Chloride [Moles/Vol] 107 mmol/L 98 - 10 7 mmol/L [facility] Work Phone: [phone] CO2 [Moles/Vol] 25 mmol/L 22 - 30 mmol/L [facility] Work Phone: [phone] Creatinine [Mass/Vol] 0.66 mg/dL 0.52 - 1.25 mg/dL [facility] Work Phone: [phone] EGFR IF NonAfrican Swiss 88.6 mL/min >60 [facility] Work Phone: Comment on above: KDIGO guidelines pro vide the following GFR categories: Stage GFR(ml/min/1.73 m2) Terms G1 >=90 Normal or high G2 60-89 Mildly decreased* G3a 45-59 Mildly to moderately decreased G3b 30-44 Moderately to severely decreased G4 15-29 Severely decreased G5 <15 Kidney failure *Relative to young adult level. In the absence of evidence of kidney damage, neither GFR category G1 nor G2 fulfill the criteria for CKD. The CKD-EPI equation is validated in individuals 18 years of age and older. Currently the best equation for estimating glomerular filtration rate (GFR) from serum creatinine in children is the Bedside Murcia equation. It is less accurate in patients with extremes of muscle mass, restriction of dietary protein, ingestion of creatine, extra-renal metabolism of creatinine, or treatment with medications that affect renal tubular creatinine secretion. GFR/1.73 sq M.predicted among blacks MDRD (S/P/Bld) [Vol rate/Area] mL/min/{1.73_m2} >60 mL/min [facility] Work Phone: Glucose [Mass/Vol] 136 mg/dL High 70 - 100 mg/dL [facility] Work Phone: Interpretation and review of laboratory results Abnormal [facility] Work Phone: Potassium [Moles/Vol] 4.0 mmol/L 3.5 - 5.1 mmol/L [facility] Work Phone: 1 Sodium [Moles/Vol] 137 mmol/L 135 - 145 mmol/L [facility] Work Phone: 1 Urea nitrogen (BldV) [Mass/Vol] 17 mg/dL 7 - 20 mg/dL [facility] Work Phone: 1 CBC Auto DifferentialOrdered By: Emmie Spring on 04-07-2021 Absolute Baso # 0.1 10*3/uL 0.0 - 0.2 10*3/uL [facility] Work Phone: 1 Absolute Neut # 3.3 10*3/uL 1.8 - 7.0 10*3/uL [facility] Work Phone: Basophils/100 WBC (Bld) 1.1 % 0.0 - 2.0 % [facility] Work Phone: Eosinophils (Bld) [#/Vol] 0.5 10*3/uL 0. 0 - 0.5 10*3/uL [facility] Work Phone: 1 Eosinophils/100 WBC (Bld) 7.0 % High 1.0 - 6.0 % [facility] Work Phone: Granulocytes/100 WBC (Bld) 48.1 % 40.0 - 80.0 % [facility] Work Phone: Hematocrit (Bld) [Volume fraction] 33.3 % Low 35.0 - 47.0 % [facility] Work Phone: 22 Hemoglobin.gastrointestin al spec 1 Ql (Stl) 11.1 g/dL Low 11.7 - 16.0 g/dL [facility] Work Phone: 1 Interpretation and review of laboratory results Abnormal [facility] Work Phone: 1 Lymphocytes (Bld) [#/Vol] 2.5 10*3/uL 1. 0 - 4.3 10*3/uL [facility] Work Phone: Lymphocytes/100 WBC (Bld) 36.5 % 20 .0 - 40.0 % [facility] Work Phone: [phone] MCH (RBC) [Entitic mass] 27.8 pg 26. 0 - 34.0 pg [employer] Work Phone: MCHC (RBC) [Mass/Vol] 33.3 % 32.0 - 36.0 % [employer] Work Phone: MCV (RBC) [Entitic vol] 83.4 fL 79.0 - 98.0 fL [employer] Work Phone: Monocytes (Bld) [#/Vol] 0.5 10*3/uL 0.0 - 0.8 10*3/uL [employer] Work Phone: Monocytes/100 WBC (Bld) 7.3 % 2.0 - 10.0 % [employer] Work Phone: Platelet distribution width (Bld) [Ratio] 15.2 % High 11.5 - 14.5 % [employer] Work Phone: Platelet mean volume (Bld) [Entitic vol] 11.0 fL High 7.4 - 10.4 fL [employer] Work Phone: Platelets (Bld) [#/Vol] 162 10*3/uL 140 - 440 10*3/uL [employer] Work Phone: RBC (Bld) [#/Vol] 3.99 10*6/uL 3.80 - 5.2 0 10*6/uL [employer] Work Phone: WBC (Bld) [#/Vol] 6.9 10*3/uL 3.6 - 10.7 10*3/uL [employer] Work Phone: Test Performed by [employer] [address] [place] [address] [facility] Work Phone: EKG 12 LeadOrdered By: Concha Spring on 04-07-2021 [employer] 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 : 1950 Requested By: MARCUS NUÑEZ Order Number: [id number] Reading MD: Shabbir Lazcano Measurements Intervals [place] Rate: 79 P: 24 WI: 178 QRS: -18 QRSD: 100 T: 127 QT: 399 QTc: 458 Interpretive Statements Sinus rhythm Borderline left axis deviation Low voltage, precordial leads Anteroseptal infarct, old Nonspecific T abnormalities, lateral leads Electronically Signed On 04-07-2021 14:28:03 EDT by Shabbir BLEDSOE Work Phone: Glucose,Bedsideon 04-07-2021 Glucose [Mass/Vol] 205 mg/dL High 70-100 [facility] [employer] [facility] Comment on above: Result Comment: Test performed by glucose meter. Results may be 10%-15% lower than serum/plasma values. (CLIA ID [id number]) Performed By: #### B GLU #### [employer] [address] [place] [phone] Glucose [Mass/Vol] 125 mg/dL High 70-100 [facility] [employer] [facility] Comment on above: Result Comment: Test performed by glucose meter. Results may be 10%-15% lower than serum/plasma values. (CLIA ID [id number]) Performed By: #### B GLU #### [employer] [address] [place] [phone] Glucose [Mass/Vol] 178 mg/dL High 70-100 [facility] Comment on above: Result Comment: Test performed by glucose meter. Results may be 10%-15% lower than serum/plasma values. (CLIA ID [id number]) Performed By: #### B GLU #### [facility] [address] [place], [place] Glucose [Mass/Vol] 243 mg/dL High 70-100 [facility] Comment on above: Result Comment: Test performed by glucose meter. Results may be 10%-15% lower than serum/plasma values. (CLIA ID [id number]) Performed By: #### B GLU #### [address] [place], [place] Hemogram w/ Autodiffon 04-07 Abs Baso Cnt 0.1 10*3/uL Normal 0.0-0.2 [facility] Comment on above: Performed By: #### B GLU #### [address] [place], [place] Abs Neutrophile Cnt 3.3 10*3/uL Normal 1.8-7.0 [facility] Comment on above: Performed By: #### B GLU #### [address] [place], [place] Basophils/100 WBC (Bld) 1.1 % Normal 0.0-2.0 S [facility] Comment on above: Performed By: #### B GLU #### [address] [place], [place] Eosinophils (Bld) [#/Vol] 0.5 10*3/uL Normal 0.0-0.5 [facility] Comment on above: Performed By: #### B GLU #### [address] [place], [place] Eosinophils/100 WBC (Bld) 7.0 % High 1.0-6.0 [facility] Comment on above: Performed By: #### B GLU #### [address] [place] Erythrocyte distribution width (RBC) [Ratio] 15.2 % High 11.5-14.5 [facility] Comment on above: Performed By: #### B GLU #### [address] [place] Granulocytes/100 WBC (Bld) 48.1 % Normal 40.0-80.0 [facility] Comment on above: Performed By: #### B GLU #### [address] [place] Hematocrit (Bld) [Volume fraction] 33.3 % Low 35.0-47.0 [facility] Comment on above: Performed By: #### B GLU #### [address] [place] Hemoglobin (Bld) [Mass/Vol] 11.1 g/dL Low 11.7-16.0 [facility] Comment on above: Performed By: #### B GLU #### [address] [place] Lymphocytes (Bld) [#/Vol] 2.5 10*3/uL Normal 1.0-4.3 [facility] Comment on above: Performed By: #### B GLU #### [address] [place] Lymphocytes/100 WBC (Bld) 36.5 % Normal 20.0-40.0 [facility] Comment on above: Performed By: #### B GLU #### [address] [place] MCH (RBC) [Entitic mass] 27.8 pg Normal 26.0-34.0 [facility] Comment on above: Performed By: #### B GLU #### [address] [place] MCHC 33.3 % Normal 32.0-36.0 [facility] Comment on above: Performed By: #### B GLU #### [address] [place] MCV (RBC) [Entitic vol] 83.4 fL Normal 79.0-98.0 [facility] Comment on above: Performed By: #### B GLU #### [facility] [address] [place] [address] Monocytes (Bld) [#/Vol] 0.5 10*3/uL Normal 0.0-0.8 [facility] Comment on above: Performed By: #### B GLU #### [facility] [address] [place] [address] Monocytes/100 WBC (Bld) 7.3 % Normal 2.0-10.0 S [facility] Comment on above: Performed By: #### B GLU #### [facility] [address] [place] [address] Platelet mean volume (Bld) [Entitic vol] 11.0 fL High 7.4-10.4 [facility] Comment on above: Performed By: #### B GLU #### [facility] [address] [place] [address] Platelets (Bld) [#/Vol] 162 10*3/uL Normal 140-440 [facility] Comment on above: Performed By: #### B GLU #### [facility] [address] [place] [address] RBC (Bld) [#/Vol] 3.99 10*6/uL Normal 3.80-5.20 [facility] Comment on above: Performed By: #### B GLU #### [facility] [address] [place] [address] WBC (Bld) [#/Vol] 6.9 10*3/uL Normal 3.6-10.7 [facility] Comment on above: Performed By: #### B GLU #### [facility] [address] [place] [address] MRI Cardiac Morphology w/ Co ntraston 04-07-2021 MRI Cardiac Morphology w/ Contrast Patient Name: INDIRA HATCH [facility] ACCESSION EXAM DATE/TIME PROCEDURE ORDERING PROVIDER [id number] 04/07/2021 15:48 EDT MRI Cardiac Morphology [id number] -EMMIE SPRING w/ Contrast CPT code 83090 Reason For Exam (MRI Cardiac Morphology w/ Contrast) NSTEMI, cabg consideration Report [facility] [employer] CMR Report Name: INDIRA HATCH : 1950 Scan Date: 2021-04-07 14:18:49 Electronically signed by Mejia Oneill 21:58:05 SUMMARY Cardiac MRI with contrast Clinical Indication: 70 year old man with severe CAD disease. Evaluate LV function and scar. Technique: Multiplanar, multi-echo sequences of the heart was performed prior to and following 12cc of Gadavist IV. T1 maps, aortic velocity, and late post-contrast images were included. Findings: LV- Quantitative LVEF 35%. LV cavity size is normal. LV systolic function is moderately reduced with akinesis of mid anteroseptal wall and hypokinesis of the anteroseptal apical wall. moderate thinning of the mid anteroseptal wall. VIABILITY: Hyperenhancement of mid to apical anteroseptal wall. 16% anteroseptal mid to apex scaring. RV: Quantitative LVEF 51% RV systolic function is normal. RV cavity size is normal. LA/RA SEPTUM: The ventricular septum is intact. LEFT ATRIUM: LA cavity size is normal. RIGHT ATRIUM: RA cavity is normal. PERICARDIUM: Pericardium is normal. No pericardial effusion. No delayed enhancement of pericardium. AORTIC VALVE: Aortic valve leaflets are normal. There is mild aortic regurgitation. There is no aortic stenosis. MITRAL VALVE: Mitral valve leaflets are normal. There is no mitral regurgitation. TRICUSPID VALVE: Tricuspid valve leaflets are normal. There is trace tricuspid regurgitation. PULMONIC VALVE: Pulmonic valve leaflets are normal. No pulmonic regurgitation. AORTIC VALVE: The aortic root is normal. OTHER FINDINGS: Normal first pass perfusion. No evidence of myocardial edema. T1 maps- slightly elevated range- 1020 ms Pericardium- normal other- No pleural effusion. IMPRESSION: Ischemic cardiomyopathy in L[place] territory wall thinning and 16% scar. Moderate reduction in systolic function (LVEF= 35%). Mild aortic valve regurgitation. Magnetic Resonance Imaging Report CORE EXAM MEASUREMENTS ---- VOLUMETRIC ANALYSIS ---- . . LV Reference RV Reference +------+ +- -----+ +--- ---+ + EDV ml 160 (77-158) 82 (69-153) ml/m^2 81.2 (50-84) 41.6 (45-82) ESV ml 104 (18-55) 40 (6-58) ml/m^2 52.8 (12-30) 20.3 (6-32) CO L/min 4.09 3.07 L/min/m^2 2.1 1.6 MASS g g/m^2 SV ml 56 (54-109) 42 (53-105) ml/m^2 28.4 (34-59) 21.3 (33-57) EF % 35 (60-78) 51 (59-83) '------+ +- -----+ +--- ---+ ' CARDIAC OUTPUT HR: 73 bpm LV INFARCT/SCAR SIZE ---- PERCENT: 16 % LV DIMENSIONS ---- WALL THICKNESS - ANTEROSEPTAL: 0.7 cm WALL THICKNESS - INFEROLATERAL: 0.6 cm WALL THICKNESS - MAXIMUM: 0.7 cm LV SMITHA: 5.8 cm LV ESD: 3.7 cm ANATOMY ---- LEFT VENTRICLE ---- WALL THICKNESS: Normal LVH PATTERN: CONCENTRIC REMODELING CAVITY SIZE: Normal RIGHT VENTRICLE ---- WALL THICKNESS: Normal CONTRACTILITY: Hypercontractile CAVITY SIZE: Normal INTERVENTRICULAR SEPTUM ---- VENTRICULAR SEPTUM: Normal LEFT ATRIUM ---- CAVITY SIZE: Normal RIGHT ATRIUM ---- CAVITY SIZE: Normal PERICARDIUM ---- Normal EFFUSION: None PLEURAL EFFUSION ---- None VALVES ---- AORTIC VALVE Magnetic Resonance Imaging Report ---- AORTIC REGURGITATION: MILD MITRAL VALVE ---- MITRAL REGURGITATION: None TRICUSPID VALVE ---- TRICUSPID (more content not included)... Normal [facility] MRI MYOCARDIUM W CONTRASTOrd ered By: Emmie Spring on 04-07-2021 [id number] Resonance Imaging ACCESSION EXAM DATE/TIME PROCEDURE ORDERING PROVIDER [id number] 04/07/2021 15:48 EDT MRI Cardiac Morphology [id number] EMMIE EVANS w/ Contrast CPT code 78039 Reason For Exam (MRI Cardiac Morphology w/ Contrast) NSTEMI, cabg consideration Report [facility] CMR Report Name: INDIRA HATCH : 1950 Scan Date: 2021-04-07 14:18:49 Electronically signed by Mejia Oneill 21:58:05 SUMMARY ====== Cardiac MRI with contrast Clinical Indication: 70 year old man with severe CAD disease. Evaluate LV function and scar. Technique: Multiplanar, multi-echo sequences of the heart was performed prior to and following 12cc of Gadavist IV. T1 maps, aortic velocity, and late post-contrast images were included. Findings: LV- Quantitative LVEF 35%. LV cavity size is normal. LV systolic function is moderately reduced with akinesis of mid anteroseptal wall and hypokinesis of the anteroseptal apical wall. moderate thinning of the mid anteroseptal wall. VIABILITY: Hyperenhancement of mid to apical anteroseptal wall. 16% anteroseptal mid to apex scaring. RV: Quantitative LVEF 51% RV systolic function is normal. RV cavity size is normal. LA/RA SEPTUM: The ventricular septum is intact. LEFT ATRIUM: LA cavity size is normal. RIGHT ATRIUM: RA cavity is normal. PERICARDIUM: Pericardium is normal. No pericardial effusion. No delayed enhancement of pericardium. AORTIC VALVE: Aortic valve leaflets are normal. There is mild aortic regurgitation. There is no aortic stenosis. MITRAL VALVE: Mitral valve leaflets are normal. There is no mitral regurgitation. TRICUSPID VALVE: Tricuspid valve leaflets are normal. There is trace tricuspid regurgitation. PULMONIC VALVE: Pulmonic valve leaflets are normal. No pulmonic regurgitation. AORTIC VALVE: The aortic root is normal. OTHER FINDINGS: Normal first pass perfusion. No evidence of myocardial edema. T1 maps- slightly elevated range- 1020 ms Pericardium- normal other- No pleural effusion. IMPRESSION: Ischemic cardiomyopathy in LAD territory wall thinning and 16% scar. Moderate reduction in systolic function (LVEF= 35%). Mild aortic valve regurgitation. Magnetic Resonance Imaging Report CORE EXAM ====== MEASUREMENTS ---- VOLUMETRIC ANALYSIS ---- . . LV Reference RV Reference +------+ +- -----+ +--- ---+ + EDV ml 160 (77-158) 82 (69-153) ml/m^2 81.2 (50-84) 41.6 (45-82) ESV ml 104 (18-55) 40 (6-58) ml/m^2 52.8 (12-30) 20.3 (6-32) CO L/min 4.09 3.07 L/min/m^2 2.1 1.6 MASS g g/m^2 SV ml 56 (54-109) 42 (53-105) ml/m^2 28.4 (34-59) 21.3 (33-57) EF % 35 (60-78) 51 (59-83) '------+ +- -----+ +--- ---+ ' CARDIAC OUTPUT HR: 73 bpm LV INFARCT/SCAR SIZE ---- PERCENT: 16 % LV DIMENSIONS ---- WALL THICKNESS - ANTEROSEPTAL: 0.7 cm WALL THICKNESS - INFEROLATERAL: 0.6 cm WALL THICKNESS - MAXIMUM: 0.7 cm LV SMITHA: 5.8 cm LV ESD: 3.7 cm ANATOMY ---- LEFT VENTRICLE ---- WALL THICKNESS: Normal LVH PATTERN: CONCENTRIC REMODELING CAVITY SIZE: Normal RIGHT VENTRICLE ---- WALL THICKNESS: Normal CONTRACTILITY: Hypercontractile CAVITY SIZE: Normal INTERVENTRICULAR SEPTUM ---- VENTRICULAR SEPTUM: Normal LEFT ATRIUM ---- CAVITY SIZE: Normal RIGHT ATRIUM ---- CAVITY SIZE: Normal PERICARDIUM ---- Normal EFFUSION: None PLEURAL EFFUSION ---- None VALVES (more content not included)... [employer] Work Phone: Nikita, [employer] [facility] 10:12 PM EDT Patient Name: INDIRA HATCH Magnetic Resonance Imaging ACCESSION EXAM DATE/TIME PROCEDURE ORDERING PROVIDER [id number] 04/07/2021 15:48 EDT MRI Cardiac Morphology [id number] -EMMIE SPRING w/ Contrast CPT code 82072 Reason For Exam (MRI Cardiac Morphology w/ Contrast) NSTEMI, cabg consideration Report [employer] CMR Report Name: INDIRA HATCH : 1950 Scan Date: 2021-04-07 14:18:49 Electronically signed by Mejia Oneill 21:58:05 SUMMARY ====== Cardiac MRI with contrast Clinical Indication: 70 year old man with severe CAD disease. Evaluate LV function and scar. Technique: Multiplanar, multi-echo sequences of the heart was performed prior to and following 12cc of Gadavist IV. T1 maps, aortic velocity, and late post-contrast images were included. Findings: LV- Quantitative LVEF 35%. LV cavity size is normal. LV systolic function is moderately reduced with akinesis of mid anteroseptal wall and hypokinesis of the anteroseptal apical wall. moderate thinning of the mid anteroseptal wall. VIABILITY: Hyperenhancement of mid to apical anteroseptal wall. 16% anteroseptal mid to apex scaring. RV: Quantitative LVEF 51% RV systolic function is normal. RV cavity size is normal. LA/RA SEPTUM: The ventricular septum is intact. LEFT ATRIUM: LA cavity size is normal. RIGHT ATRIUM: RA cavity is normal. PERICARDIUM: Pericardium is normal. No pericardial effusion. No delayed enhancement of pericardium. AORTIC VALVE: Aortic valve leaflets are normal. There is mild aortic regurgitation. There is no aortic stenosis. MITRAL VALVE: Mitral valve leaflets are normal. There is no mitral regurgitation. TRICUSPID VALVE: Tricuspid valve leaflets are normal. There is trace tricuspid regurgitation. PULMONIC VALVE: Pulmonic valve leaflets are normal. No pulmonic regurgitation. AORTIC VALVE: The aortic root is normal. OTHER FINDINGS: Normal first pass perfusion. No evidence of myocardial edema. T1 maps- slightly elevated range- 1020 ms Pericardium- normal other- No pleural effusion. IMPRESSION: Ischemic cardiomyopathy in LAD territory wall thinning and 16% scar. Moderate reduction in systolic function (LVEF= 35%). Mild aortic valve regurgitation. Magnetic Resonance Imaging Report CORE EXAM ====== MEASUREMENTS VOLUMETRIC ANALYSIS ---- . . LV Reference RV Reference +------+ +- -----+ +--- ---+ + EDV ml 160 (77-158) 82 (69-153) ml/m^2 81.2 (50-84) 41.6 (45-82) ESV ml 104 (18-55) 40 (6-58) ml/m^2 52.8 (12-30) 20.3 (6-32) CO L/min 4.09 3.07 L/min/m^2 2.1 1.6 MASS g g/m^2 SV ml 56 (54-109) 42 (53-105) ml/m^2 28.4 (34-59) 21.3 (33-57) EF % 35 (60-78) 51 (59-83) '------+ +- -----+ +--- ---+ ' CARDIAC OUTPUT HR: 73 bpm LV INFARCT/SCAR SIZE ---- PERCENT: 16 % LV DIMENSIONS ---- WALL THICKNESS - ANTEROSEPTAL: 0.7 cm WALL THICKNESS - INFEROLATERAL: 0.6 cm WALL THICKNESS - MAXIMUM: 0.7 cm LV SMITHA: 5.8 cm LV ESD: 3.7 cm ANATOMY LEFT VENTRICLE ---- WALL THICKNESS: Normal LVH PATTERN: CONCENTRIC REMODELING CAVITY SIZE: Normal RIGHT VENTRICLE ---- WALL THICKNESS: Normal CONTRACTILITY: Hypercontractile CAVITY SIZE: Normal INTERVENTRICULAR SEPTUM ---- VENTRICULAR SEPTUM: Normal LEFT ATRIUM ---- CAVITY SIZE: Normal RIGHT ATRIUM ---- CAVITY SIZE: Normal PERICARDIUM ---- Normal EFFUSION: None PLEURAL EFFUSION ---- None VALVES AORTIC VALVE Magnetic Resonance Imaging Report ---- AORTIC REGURGITATION: MIL (more content not included)... [employer] Work Phone: Magnesiumon 04-07-2021 Magnesium [Mass/Vol] 1.7 mg/dL Normal 1.6-2.3 [employer] [facility] Comment on above: Performed By: #### A CTBO #### [employer] [facility] [address] [place] [id number] MagnesiumOrdered By: Silvano Spring on 04-07-2021 Magnesium [Mass/Vol] 1.7 mg/dL 1.6 - 2 .3 mg/dL [employer] Work Phone: 1 No Panel InformationOrdered By: Emmie Spring on 04-07-2021 Test Performed by [employer] [facility] [place] [address] [employer] Work Phone: 1 POCT GlucoseOrdered By: Kristopher Stubbs on 04-07-2021 Glucose [Mass/Vol] 205 mg/dL High 70 - 100 mg/dL [employer] Work Phone: 1 Comment on above: Test performed by gl ucose meter. Results may be 10%-15% lower than serum/plasma values. (CLIA ID [id number]) Interpretation and review of laboratory results Abnormal [employer] Work Phone: 1 Test Performed by [employer] [facility] [place] [address] [employer] Work Phone: 1 Glucose [Mass/Vol] 125 mg/dL High 70 - 100 mg/dL [employer] Work Phone: 1 Comment on above: Test performed by gl ucose meter. Results may be 10%-15% lower than serum/plasma values. (CLIA ID [id number]) Interpretation and review of laboratory results Abnormal [employer] Work Phone: 1 Test Performed by [employer] [facility] [place] [address] [employer] Work Phone: 1 Glucose [Mass/Vol] 178 mg/dL High 70 - 100 mg/dL [employer] Work Phone: 1 Comment on above: Test performed by gl ucose meter. Results may be 10%-15% lower than serum/plasma values. (CLIA ID [id number]) Interpretation and review of laboratory results Abnormal [employer] Work Phone: 1 Test Performed by [employer] [facility] [place] [address] [employer] Work Phone: 1 Glucose [Mass/Vol] 243 mg/dL High 70 - 100 mg/dL [employer] Work Phone: 1 Comment on above: Test performed by gl ucose meter. Results may be 10%-15% lower than serum/plasma values. (CLIA ID [id number]) Interpretation and review of laboratory results Abnormal [facility] Work Phone: Test Performed by [facility], [address] [place] [id number] [place] [address] Work Phone: Phosphoruson 04-07-2021 Phosphate [Mass/Vol] 4.0 mg/dL Normal 2.5-4.5 [facility] Comment on above: Performed By: #### A CTBO #### [address] PhosphorusOrdered By: Brennen Spring on 04-07-2021 Phosphate [Mass/Vol] 4.0 mg/dL 2.5 - 4 .5 mg/dL [facility] Work Phone: APTTon 04-06-2021 aPTT Coag (Bld) [Time] 70.0 s High 20.0-30.5 [facility] Comment on above: Result Comment: NOTE : The therapeutic time for Heparin anticoagulation, based on Xa activity inhibition, is an APTT of 46-80 seconds. Performed By: #### A PTT #### [address] aPTT Coag (Bld) [Time] 48.1 s High 20.0-30.5 [facility] Comment on above: Result Comment: NOTE : The therapeutic time for Heparin anticoagulation, based on Xa activity inhibition, is an APTT of 46-80 seconds. Performed By: #### T SH5, MBF33, CKMBS, LIPD2 #### [address] aPTT Coag (Bld) [Time] 50.3 s High 20.0-30.5 [facility] Comment on above: Result Comment: NOTE : The therapeutic time for Heparin anticoagulation, based on Xa activity inhibition, is an APTT of 46-80 seconds. Performed By: #### T SH5, MBF33, CKMBS, LIPD2 #### [address] APTTOrdered By: Emmie shah on 04-06-2021 aPTT Coag (Bld) [Time] 70 s High 20.0 - 30.5 s [facility] Work Phone: Comment on above: NOTE: The therapeuti c time for Heparin anticoagulation, based on Xa activity inhibition, is an APTT of 46-80 seconds. Interpretation and review of laboratory results Abnormal [facility] Work Phone: Test Performed by [facility] [employer] [address] [address] [facility] Work Phone: aPTT Coag (Bld) [Time] 50.3 s High 20.0 - 30.5 s [facility] Work Phone: Comment on above: NOTE: The therapeuti c time for Heparin anticoagulation, based on Xa activity inhibition, is an APTT of 46-80 seconds. Interpretation and review of laboratory results Abnormal [facility] Work Phone: Test Performed by [address] [address] [facility] Work Phone: Basic Metabolic Panelon Calcium [Mass/Vol] 9.4 mg/dL Normal 8.4-10.4 [facility] Comment on above: Performed By: #### A CTBO #### [address] [phone] Glucose [Mass/Vol] 159 mg/dL High 70-100 [facility] Comment on above: Performed By: #### A CTBO #### [address] [address] [place] [address] Anion gap [Moles/Vol] 6 mmol/L Normal 3-[address] [facility] Comment on above: Performed By: #### A CTBO #### [address] [address] CO2 [Moles/Vol] 26 mmol/L Normal 22-30 [facility] Comment on above: Performed By: #### A CTBO #### [address] [address] [place] [address] Creatinine [Mass/Vol] 0.65 mg/dL Normal 0.52-1.[address] [facility] Comment on above: Performed By: #### A CTBO #### [facility] [address] [place] [address] GFR/1.73 sq M.predicted among blacks MDRD (S/P/Bld) [Vol rate/Area] mL/min/{1.73_m2} Normal >60 [facility] Comment on above: Performed By: #### A CTBO #### [facility] [address] [place] [address] GFR/1.73 sq M.predicted among non-blacks MDRD (S/P/Bld) [Vol rate/Area] 89.1 mL/min/{1.73_m2} Normal >60 [facility] Comment on above: Result Comment: KDIG O guidelines provide the following GFR categories: Stage GFR(ml/min/1.73 m2) Terms G1 >=90 Normal or high G2 60-89 Mildly decreased* G3a 45-59 Mildly to moderately decreased G3b 30-44 Moderately to severely decreased G4 15-29 Severely decreased G5 <15 Kidney failure *Relative to young adult level. In the absence of evidence of kidney damage, neither GFR category G1 nor G2 fulfill the criteria for CKD. The CKD-EPI equation is validated in individuals 18 years of age and older. Currently the best equation for estimating glomerular filtration rate (GFR) from serum creatinine in children is the Bedside Murcia equation. It is less accurate in patients with extremes of muscle mass, restriction of dietary protein, ingestion of creatine, extra-renal metabolism of creatinine, or treatment with medications that affect renal tubular creatinine secretion. Performed By: #### A CTBO #### [facility] [address] [place] [address] Urea nitrogen [Mass/Vol] 17 mg/dL Normal 7-20 [facility] Comment on above: Performed By: #### A CTBO #### [address] [address] Chloride [Moles/Vol] 103 mmol/L Normal 98-107 [facility] Comment on above: Performed By: #### A CTBO #### [address] [address] [place] Potassium [Moles/Vol] 4.1 mmol/L Normal 3.5-5.[address] [facility] Comment on above: Performed By: #### A CTBO #### [facility] [address] [place], [place] Sodium [Moles/Vol] 135 mmol/L Normal 135-145 [facility] Comment on above: Performed By: #### A CTBO #### [address] [address] [place], [place] Basic Metabolic PanelOrdered By: Emmie Spring on 04-06-2021 Anion gap [Moles/Vol] 6 mmol/L 3 - 13 mmol/L [facility] Work Phone: Calcium [Mass/Vol] 9.4 mg/dL 8.4 - 10. 4 mg/dL [facility] Work Phone: Chloride [Moles/Vol] 103 mmol/L 98 - 10 7 mmol/L [facility] Work Phone: CO2 [Moles/Vol] 26 mmol/L 22 - 30 mmol/L [facility] Work Phone: Creatinine [Mass/Vol] 0.65 mg/dL 0.52 - 1.25 mg/dL [facility] Work Phone: EGFR IF NonAfrican Swiss 89.1 mL/min >60 [facility] Work Phone: Comment on above: KDIGO guidelines pro vide the following GFR categories: Stage GFR(ml/min/1.73 m2) Terms G1 >=90 Normal or high G2 60-89 Mildly decreased* G3a 45-59 Mildly to moderately decreased G3b 30-44 Moderately to severely decreased G4 15-29 Severely decreased G5 <15 Kidney failure *Relative to young adult level. In the absence of evidence of kidney damage, neither GFR category G1 nor G2 fulfill the criteria for CKD. The CKD-EPI equation is validated in individuals 18 years of age and older. Currently the best equation for estimating glomerular filtration rate (GFR) from serum creatinine in children is the Bedside Murcia equation. It is less accurate in patients with extremes of muscle mass, restriction of dietary protein, ingestion of creatine, extra-renal metabolism of creatinine, or treatment with medications that affect renal tubular creatinine secretion. GFR/1.73 sq M.predicted among blacks MDRD (S/P/Bld) [Vol rate/Area] mL/min/{1.73_m2} >60 mL/min [facility] Work Phone: Glucose [Mass/Vol] 159 mg/dL High 70 - 100 mg/dL [facility] Work Phone: Interpretation and review of laboratory results Abnormal [facility] Work Phone: Potassium [Moles/Vol] 4.1 mmol/L 3.5 - 5.1 mmol/L [facility] Work Phone: Sodium [Moles/Vol] 135 mmol/L 135 - 145 mmol/L [facility] Work Phone: Urea nitrogen (BldV) [Mass/Vol] 17 mg/dL 7 - 20 mg/dL [employer] Work Phone: CBC Auto DifferentialOrdered By: Emmei Spring on 04-06-2021 Absolute Baso # 0.1 10*3/uL 0.0 - 0.2 10*3/uL [employer] Work Phone: Absolute Neut # 3.1 10*3/uL 1.8 - 7.0 10*3/uL [employer] Work Phone: Basophils/100 WBC (Bld) 0.8 % 0.0 - 2.0 % [facility] Work Phone: Eosinophils (Bld) [#/Vol] 0.4 10*3/uL 0. 0 - 0.5 10*3/uL [employer] Work Phone: [phone] Eosinophils/100 WBC (Bld) 6.9 % High 1.0 - 6.0 % [facility] Work Phone: Granulocytes/100 WBC (Bld) 48.1 % 40.0 - 80.0 % [facility] Work Phone: [phone] Hematocrit (Bld) [Volume fraction] 34.7 % Low 35.0 - 47.0 % [employer] Work Phone: Hemoglobin.gastrointestin al spec 1 Ql (Stl) 11.7 g/dL 11.7 - 16.0 g/dL [employer] Work Phone: 1 Interpretation and review of laboratory results Abnormal [employer] Work Phone: 1 Lymphocytes (Bld) [#/Vol] 2.4 10*3/uL 1. 0 - 4.3 10*3/uL [employer] Work Phone: Lymphocytes/100 WBC (Bld) 37.2 % 20 .0 - 40.0 % [employer] Work Phone: 1 MCH (RBC) [Entitic mass] 28.1 pg 26. 0 - 34.0 pg [employer] Work Phone: 1 MCHC (RBC) [Mass/Vol] 33.6 % 32.0 - 36.0 % [employer] Work Phone: MCV (RBC) [Entitic vol] 83.6 fL 79.0 - 98.0 fL [employer] Work Phone: Monocytes (Bld) [#/Vol] 0.4 10*3/uL 0.0 - 0.8 10*3/uL [employer] Work Phone: 1 Monocytes/100 WBC (Bld) 7.0 % 2.0 - 10.0 % [employer] Work Phone: 1 Platelet distribution width (Bld) [Ratio] 15.0 % High 11.5 - 14.5 % [employer] Phone: Platelet mean volume (Bld) [Entitic vol] 10.8 fL High 7.4 - 10.4 fL [employer] Work Phone: Platelets (Bld) [#/Vol] 162 10*3/uL 140 - 440 10*3/uL [employer] Work Phone: RBC (Bld) [#/Vol] 4.15 10*6/uL 3.80 - 5.2 0 10*6/uL [employer] Work Phone: WBC (Bld) [#/Vol] 6.4 10*3/uL 3.6 - 10.7 10*3/uL [employer] Work Phone: Test Performed by [employer] [address] [place] [id number] [employer] Work Phone: ECHO Complete 2D W Doppler W ColorOrdered By: Emmie Spring on 04-06-2021 TRANSTHORACIC ECHOCARDIOGRAM PATIENT: Indira Hatch STUDY DATE: 04/06/2021 : 1950 AGE: 70 HT/WT: 165.1 cm (65 89.4 kg (196.6 in) lb) GENDER: F BP: 113 / 58 LOCATION: [facility] PATIENT Inpatient main STATUS: *ORDERING PHYSICIAN: * Emmie Spring *READING PHYSICIAN: * Shabbir *[facility]AT[facility] SPECIALISTS: * Arnulfo Dempsey RDCS, MD AE, RVT, [place] -------- INDICATIONS: NSTEMI, 15% EF on cath. -------- CONCLUSIONS SUMMARY: 1. Left ventricle: There is mild concentric hypertrophy. Systolic function is moderately decreased by the biplane method of disks. The estimated ejection fraction is 36%. 2. Regional wall motion abnormality: Hypokinesis of the mid-apical anterior, mid anteroseptal, apical inferior, apical septal, apical lateral, and apical myocardium. This suggests infarct in the LAD distribution. 3. Mitral valve: Structurally normal valve. There is mild, 1+ regurgitation, directed eccentrically and toward the free wall. -------- STUDY DATA: Complete transthoracic echocardiogram. Procedure: Image quality was poor. The study was technically limited due to poor acoustic window availability and respiratory interference. Intravenous imaging enhancement (Definity) was administered to opacify the chamber. Definity lot #: [id number]. M-mode, complete 2D, strain rate, complete spectral Doppler, and color flow Doppler images were acquired and archived for permanent storage and are available for subsequent review. Study status: Routine. Patient status: Inpatient. -------- FINDINGS LEFT VENTRICLE: Average LV global longitudinal strain is -11. The cavity size is normal. Wall thickness is mildly increased. There is mild concentric hypertrophy. Systolic function is moderately decreased by the biplane method of disks. The estimated ejection fraction is 36%. Regional wall motion abnormalities: Hypokinesis of the mid-apical anterior, mid anteroseptal, apical inferior, apical septal, apical lateral, and apical myocardium. The pulmonary vein flow pattern is normal. E/e' average: 18 RIGHT VENTRICLE: The cavity size is normal. Systolic function is normal by visual assessment. Right ventricular systolic pressure is within the normal range. VENTRICULAR SEPTUM: There is no evidence of a ventricular septal defect. LEFT ATRIUM: The atrium is normal in size. RIGHT ATRIUM: The atrium is normal in size. ATRIAL SEPTUM: The interatrial septum is normal. Doppler shows no shunt. MITRAL VALVE: Structurally normal valve. Leaflet separation is normal. Doppler: Transvalvular velocity is within the normal range. There is no evidence for stenosis. There is mild, 1+ regurgitation, directed eccentrically and toward the free wall. The peak diastolic gradient is 4 mm Hg. AORTIC VALVE: Structurally normal valve. Trileaflet. Cusp separation is normal. Doppler: Transvalvular velocity is within the normal range. There is no stenosis. There is trivial, less than 1+ regurgitation. TRICUSPID VALVE: Not well visualized. Structurally normal valve. Doppler: There is no significant regurgitation. PULMONIC VALVE: Not well visualized. Doppler: There is trivial, less than 1+ regurgitation. AORTA: Aortic root: The aortic root is normal in size. Ascending aorta: The ascending aorta is normal in size. PERICARDIUM: Prominent epicardial fat is present. There is no pericardial effusion. SYSTEMIC VEINS: Inferior vena cava: The vessel is at the upper limits of normal in size. The IVC collapses by greater than 50% with inspiration. -------- Measurements Value Reference Aortic root ID, ED (sinus) 3.6 cm <4.2 Value Reference Ascending aorta ID, A-P, S 3.0 cm Ascending aorta ID/bsa, A-P, S 1.5 cm/m^2 IVC Value Reference ID 2.2 cm Left ventricle Value Reference GLS, 2D 10.87 % LV ID, ED 5.2 cm 3.8 - 5.2 LV ID, ES (H) 3.7 cm 2.2 - 3.5 LV ID/bsa, ED 2.5 cm/m^2 2.3 - 3.1 LV ID/bsa, ES 1.8 cm/m^2 1.3 - 2.1 LV PW thickness, ED (more content not included)... [facility] Work Phone: Nikita, [facility] Incoming Cardiology Results From [facility] - 04/06/2021 2:52 PM EDT TRANSTHORACIC ECHOCARDIOGRAM PATIENT: Indira Hatch STUDY DATE: 04/06/2021 : 1950 AGE: 70 HT/WT: 165.1 cm (65 89.4 kg (196.6 in) lb) GENDER: F BP: 113 / 58 LOCATION: [facility] PATIENT Inpatient main STATUS: *ORDERING PHYSICIAN: * Emmie Spring *READING PHYSICIAN: * Shabbir *[facility]ISTS: * Breanna Gaitan RDCS, MD Arnulfo AE, RVT, [place] -------- INDICATIONS: NSTEMI, 15% EF on cath. -------- CONCLUSIONS SUMMARY: 1. Left ventricle: There is mild concentric hypertrophy. Systolic function is moderately decreased by the biplane method of disks. The estimated ejection fraction is 36%. 2. Regional wall motion abnormality: Hypokinesis of the mid-apical anterior, mid anteroseptal, apical inferior, apical septal, apical lateral, and apical myocardium. This suggests infarct in the LAD distribution. 3. Mitral valve: Structurally normal valve. There is mild, 1+ regurgitation, directed eccentrically and toward the free wall. -------- STUDY DATA: Complete transthoracic echocardiogram. Procedure: Image quality was poor. The study was technically limited due to poor acoustic window availability and respiratory interference. Intravenous imaging enhancement (Definity) was administered to opacify the chamber. Definity lot #: [id number]. M-mode, complete 2D, strain rate, complete spectral Doppler, and color flow Doppler images were acquired and archived for permanent storage and are available for subsequent review. Study status: Routine. Patient status: Inpatient. -------- FINDINGS LEFT VENTRICLE: Average LV global longitudinal strain is -11. The cavity size is normal. Wall thickness is mildly increased. There is mild concentric hypertrophy. Systolic function is moderately decreased by the biplane method of disks. The estimated ejection fraction is 36%. Regional wall motion abnormalities: Hypokinesis of the mid-apical anterior, mid anteroseptal, apical inferior, apical septal, apical lateral, and apical myocardium. The pulmonary vein flow pattern is normal. E/e' average: 18 RIGHT VENTRICLE: The cavity size is normal. Systolic function is normal by visual assessment. Right ventricular systolic pressure is within the normal range. VENTRICULAR SEPTUM: There is no evidence of a ventricular septal defect. LEFT ATRIUM: The atrium is normal in size. RIGHT ATRIUM: The atrium is normal in size. ATRIAL SEPTUM: The interatrial septum is normal. Doppler shows no shunt. MITRAL VALVE: Structurally normal valve. Leaflet separation is normal. Doppler: Transvalvular velocity is within the normal range. There is no evidence for stenosis. There is mild, 1+ regurgitation, directed eccentrically and toward the free wall. The peak diastolic gradient is 4 mm Hg. AORTIC VALVE: Structurally normal valve. Trileaflet. Cusp separation is normal. Doppler: Transvalvular velocity is within the normal range. There is no stenosis. There is trivial, less than 1+ regurgitation. TRICUSPID VALVE: Not well visualized. Structurally normal valve. Doppler: There is no significant regurgitation. PULMONIC VALVE: Not well visualized. Doppler: There is trivial, less than 1+ regurgitation. AORTA: Aortic root: The aortic root is normal in size. Ascending aorta: The ascending aorta is normal in size. PERICARDIUM: Prominent epicardial fat is present. There is no pericardial effusion. SYSTEMIC VEINS: Inferior vena cava: The vessel is at the upper limits of normal in size. The IVC collapses by greater than 50% with inspiration. -------- Measurements Value Reference Aortic root ID, ED (sinus) 3.6 cm <4.2 Value Reference Ascending aorta ID, A-P, S 3.0 cm Ascending aorta ID/bsa, A-P, S 1.5 cm/m^2 IVC Value Reference ID 2.2 cm Left ventricle Value Reference GLS, 2D 10.87 % LV ID, ED 5.2 cm 3.8 - 5.2 LV ID, ES (H) 3.7 cm 2.2 - 3.5 LV ID/bsa, ED 2.5 cm/m^2 2.3 - 3.1 LV ID/bsa, ES 1.8 cm/m^2 1.3 - 2.1 LV PW thickness, ED (H) 1.4 cm 0.6 - 0.9 LV PW/LV ID ratio, ED 0.26 LV wall mass (H) 263 g 66 - 150 LV wall mass/bsa (H) 128 g/m^2 44 - 88 Stroke volume/bsa, 1-p A2C 32.7 ml/m^2 LV end-diastolic volume, 1-p A4C 75 ml 48 - 140 LV end-systolic volume, 1-p A4C (H) 63 ml 12 - 60 LV end-diastolic volume, 2-p 102 ml 46 - 106 LV end-systolic volume, 2-p (H) 66 ml 14 - 42 LV ejection fraction, 2-p (L (more content not included)... [employer] Work Phone: EKG 12 LeadOrdered By: Concha Spring on 04-06-2021 [employer] 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1950 Requested By: MARCUS NUÑEZ Order Number: [id number] Alex MD: Nestor Pan Measurements Intervals [place] Rate: 86 P: 22 WI: 176 QRS: -24 QRSD: 101 T: 123 QT: 382 QTc: 457 Interpretive Statements Sinus rhythm Borderline left axis deviation Low voltage, precordial leads Anteroseptal infarct, old Nonspecific T abnormalities, lateral leads Electronically Signed On 04-06-2021 19:46:32 EDT by Nestor BLEDSOE Work Phone: Nikita, [facility] Incoming Cardiology Results From [facility] - 04/06/2021 7:47 PM EDT [facility] Test Date: 2021-04-06 Pat Name: INDIRA HATCH Department: 1A Room: [facility] 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1950 Requested By: MARCUS NUÑEZ Order Number: [id number] Reading MD: Nestor Pan Measurements Intervals [place] Rate: 86 P: 22 WI: 176 QRS: -24 QRSD: 101 T: 123 QT: 382 QTc: 457 Interpretive Statements Sinus rhythm Borderline left axis deviation Low voltage, precordial leads Anteroseptal infarct, old Nonspecific T abnormalities, lateral leads Electronically Signed On 04-06-2021 19:46:32 EDT by Nestor BLEDSOE Work Phone: Echo Complete w/wo Contrasto n 04-06-2021 Echo Complete w/wo Contrast Patient Name: INDIRA HATCH Ultrasound ACCESSION EXAM DATE/TIME PROCEDURE ORDERING PROVIDER [id number] 04/06/2021 13:37 EDT Echo Complete w/wo [id number] -EMMIE SPRING Contrast Reason For Exam (Echo Complete w/wo Contrast) NSTEMI, EF 15% on cath Report TRANSTHORACIC ECHOCARDIOGRAM PATIENT: Indira Hatch STUDY DATE: 04/06/2021 : 1950 AGE: 70 HT/WT: 165.1 cm (65 89.4 kg (196.6 in) lb) GENDER: F BP: 113 / 58 LOCATION: [facility] PATIENT Inpatient main STATUS: *ORDERING PHYSICIAN: * Emmie Spring *READING PHYSICIAN: * Shabbir *EPIC AMBULATORY SPECIALISTS: * Breanna Gaitan RDCS, MD Arnulfo AE, RVT, [place] -------- INDICATIONS: NSTEMI, 15% EF on cath. -------- CONCLUSIONS SUMMARY: 1. Left ventricle: There is mild concentric hypertrophy. Systolic function is moderately decreased by the biplane method of disks. The estimated ejection fraction is 36%. 2. Regional wall motion abnormality: Hypokinesis of the mid-apical anterior, mid anteroseptal, apical inferior, apical septal, apical lateral, and apical myocardium. This suggests infarct in the LAD distribution. 3. Mitral valve: Structurally normal valve. There is mild, 1+ regurgitation, directed eccentrically and toward the free wall. -------- STUDY DATA: Complete transthoracic echocardiogram. Procedure: Image quality was poor. The study was technically limited due to poor acoustic window availability and respiratory interference. Intravenous imaging enhancement (Definity) was administered to opacify the chamber. Definity lot #: [id number]. M-mode, complete 2D, strain rate, complete spectral Doppler, and color flow Doppler images were acquired and archived for permanent storage and are available for subsequent review. Study status: Routine. Patient status: Inpatient. -------- FINDINGS Ultrasound Report LEFT VENTRICLE: Average LV global longitudinal strain is -11. The cavity size is normal. Wall thickness is mildly increased. There is mild concentric hypertrophy. Systolic function is moderately decreased by the biplane method of disks. The estimated ejection fraction is 36%. Regional wall motion abnormalities: Hypokinesis of the mid-apical anterior, mid anteroseptal, apical inferior, apical septal, apical lateral, and apical myocardium. The pulmonary vein flow pattern is normal. E/e' average: 18 RIGHT VENTRICLE: The cavity size is normal. Systolic function is normal by visual assessment. Right ventricular systolic pressure is within the normal range. VENTRICULAR SEPTUM: There is no evidence of a ventricular septal defect. LEFT ATRIUM: The atrium is normal in size. RIGHT ATRIUM: The atrium is normal in size. ATRIAL SEPTUM: The interatrial septum is normal. Doppler shows no shunt. MITRAL VALVE: Structurally normal valve. Leaflet separation is normal. Doppler: Transvalvular velocity is within the normal range. There is no evidence for stenosis. There is mild, 1+ regurgitation, directed eccentrically and toward the free wall. The peak diastolic gradient is 4 mm Hg. AORTIC VALVE: Structurally normal valve. Trileaflet. Cusp separation is normal. Doppler: Transvalvular velocity is within the normal range. There is no stenosis. There is trivial, less than 1+ regurgitation. TRICUSPID VALVE: Not well visualized. Structurally normal valve. Doppler: There is no significant regurgitation. PULMONIC VALVE: Not well visualized. Doppler: There is trivial, less than 1+ regurgitation. AORTA: Aortic root: The aortic root is normal in size. Ascending aorta: The ascending aorta is normal in size. PERICARDIUM: Prominent epicardial fat is present. There is no pericardial effusion. SYSTEMIC VEINS: Inferior vena cava: The vessel is at the upper limits of normal in size. The IVC collapses by greater than 50% with inspiration. -------- Measurements Value Reference Aortic root ID, ED (sinus) 3.6 cm <4.2 Value Reference Ascending aorta ID, A-P, S 3.0 cm Ascending aorta ID/bsa, A-P, S 1.5 cm/m^2 IVC Value Reference ID 2.2 cm Left ventricle Value Reference GLS, 2D 10.87 % LV ID, ED 5.2 cm 3.8 - 5.2 LV ID, ES (H) 3.7 cm 2.2 - 3.5 LV ID/bsa, ED 2.5 cm/m^2 2.3 - 3.1 LV ID/bsa, ES 1.8 cm/m^2 1.3 - 2.1 LV PW thickness, ED (H) 1.4 cm 0.6 - 0.9 LV PW/LV ID ratio, ED 0.26 LV wall mass (H) 263 g 66 - 150 LV wall mass/bsa (H) 128 g/m^2 44 - 88 Stroke volume/bsa, 1-p A2C 32.7 ml/m^2 LV end-diastolic volume, 1-p A4C 75 ml 48 - 14 (more content not included)... Normal [facility] Glucose,Bedsideon 04-06-2021 Glucose [Mass/Vol] 237 mg/dL High 70-100 [facility] Comment on above: Result Comment: Test performed by glucose meter. Results may be 10%-15% lower than serum/plasma values. (CLIA ID [id number]) Performed By: #### T SH5, MBF33, CKMBS, LIPD2 #### [employer] [facility] [address] [place] [address] Glucose [Mass/Vol] 248 mg/dL High 70-100 [facility] Comment on above: Result Comment: Test performed by glucose meter. Results may be 10%-15% lower than serum/plasma values. (CLIA ID [id number]) Performed By: #### A CTBO #### [employer] [address] [place] [address] Glucose [Mass/Vol] 233 mg/dL High 70-100 [facility] Comment on above: Result Comment: Test performed by glucose meter. Results may be 10%-15% lower than serum/plasma values. (CLIA ID [id number]) Performed By: #### A CTBO #### [facility] [address] [place] [address] Hemogram w/ Autodiffon 04-06 Abs Baso Cnt 0.1 10*3/uL Normal 0.0-0.2 [facility] Comment on above: Performed By: #### A CTBO #### [facility] [address] [place] [address] Abs Neutrophile Cnt 3.1 10*3/uL Normal 1.8-7.0 [facility] Comment on above: Performed By: #### A CTBO #### [place] [address] [place] [address] Basophils/100 WBC (Bld) 0.8 % Normal 0.0-2.0 S [facility] Comment on above: Performed By: #### A CTBO #### [facility] [address] [place] [address] Eosinophils (Bld) [#/Vol] 0.4 10*3/uL Normal 0.0-0.5 [facility] Comment on above: Performed By: #### A CTBO #### [facility] [address] [place] [address] Eosinophils/100 WBC (Bld) 6.9 % High 1.0-6.0 [facility] Comment on above: Performed By: #### A CTBO #### [facility] [address] [place] [address] Erythrocyte distribution width (RBC) [Ratio] 15.0 % High 11.5-14.5 [facility] Comment on above: Performed By: #### A CTBO #### [place] [address] [place] [address] Granulocytes/100 WBC (Bld) 48.1 % Normal 40.0-80.0 [facility] Comment on above: Performed By: #### A CTBO #### [facility] [address] [place], [place] Hematocrit (Bld) [Volume fraction] 34.7 % Low 35.0-47.0 [facility] Comment on above: Performed By: #### A CTBO #### [facility] [address] [place], [place] Hemoglobin (Bld) [Mass/Vol] 11.7 g/dL Normal 11.7-16.0 [facility] Comment on above: Performed By: #### A CTBO #### [place] [address] [place], [place] Lymphocytes (Bld) [#/Vol] 2.4 10*3/uL Normal 1.0-4.3 [facility] Comment on above: Performed By: #### A CTBO #### [place] [address] [place], [place] Lymphocytes/100 WBC (Bld) 37.2 % Normal 20.0-40.0 [facility] Comment on above: Performed By: #### A CTBO #### [place] [address] [place], [place] MCH (RBC) [Entitic mass] 28.1 pg Normal 26.0-34.0 [facility] Comment on above: Performed By: #### A CTBO #### [place] [address] [place], [place] MCHC 33.6 % Normal 32.0-36.0 [facility] Comment on above: Performed By: #### A CTBO #### [place] [address] [place], [place] MCV (RBC) [Entitic vol] 83.6 fL Normal 79.0-98.0 S [facility] Comment on above: Performed By: #### A CTBO #### [place] [address] [place], [place] Monocytes (Bld) [#/Vol] 0.4 10*3/uL Normal 0.0-0.8 [facility] Comment on above: Performed By: #### A CTBO #### [facility] [employer] [address] [place] [address] Monocytes/100 WBC (Bld) 7.0 % Normal 2.0-10.0 S [facility] Comment on above: Performed By: #### A CTBO #### [facility] [address] [place] [address] Platelet mean volume (Bld) [Entitic vol] 10.8 fL High 7.4-10.4 [facility] Comment on above: Performed By: #### A CTBO #### [place] [place] [address] Platelets (Bld) [#/Vol] 162 10*3/uL Normal 140-440 [facility] Comment on above: Performed By: #### A CTBO #### [place] [place] [address] RBC (Bld) [#/Vol] 4.15 10*6/uL Normal 3.80-5.20 [facility] Comment on above: Performed By: #### A CTBO #### [facility] [employer] [place] [address] [place] [address] WBC (Bld) [#/Vol] 6.4 10*3/uL Normal 3.6-10.7 [facility] Comment on above: Performed By: #### A CTBO #### [facility] [employer] [place] [address] [place] [address] Magnesiumon 04-06-2021 Magnesium [Mass/Vol] 1.7 mg/dL Normal 1.6-2.3 [facility] Comment on above: Performed By: #### A CTBO #### [facility] [employer] [place] [address] [place] [address] MagnesiumOrdered By: Silvano Spring on 04-06-2021 Magnesium [Mass/Vol] 1.7 mg/dL 1.6 - 2 .3 mg/dL [facility] Work Phone: No Panel InformationOrdered By: Emmie Spring on 04-06-2021 Test Performed by [facility] [employer], [facility] [place] [address] [facility] Work Phone: [phone] POCT GlucoseOrdered By: Kristopher Stubbs on 04-06-2021 Glucose [Mass/Vol] 237 mg/dL High 70 - 100 mg/dL [employer] Work Phone: [phone] Comment on above: Test performed by gl ucose meter. Results may be 10%-15% lower than serum/plasma values. (CLIA ID [id number]) Interpretation and review of laboratory results Abnormal [employer] Work Phone: [phone] Test Performed by [employer] [facility] [place] [address] [employer] Work Phone: [phone] Glucose [Mass/Vol] 248 mg/dL High 70 - 100 mg/dL [employer] Work Phone: [phone] Comment on above: Test performed by gl ucose meter. Results may be 10%-15% lower than serum/plasma values. (CLIA ID [id number]) Interpretation and review of laboratory results Abnormal [employer] Work Phone: [phone] Test Performed by [employer] [address] [place] [address] [employer] Work Phone: [phone] Glucose [Mass/Vol] 233 mg/dL High 70 - 100 mg/dL [employer] Work Phone: [phone] Comment on above: Test performed by gl ucose meter. Results may be 10%-15% lower than serum/plasma values. (CLIA ID [id number]) Interpretation and review of laboratory results Abnormal [employer] Work Phone: [phone] Test Performed by [employer] [facility] [place] [address] [employer] Work Phone: [phone] Phosphoruson 04-06-2021 Phosphate [Mass/Vol] 3.8 mg/dL Normal 2.5-4.5 [employer] Comment on above: Performed By: #### A CTBO #### [employer] [address] [place] [phone] PhosphorusOrdered By: Brennen Spring on 04-06-2021 Phosphate [Mass/Vol] 3.8 mg/dL 2.5 - 4 .5 mg/dL [facility] Work Phone: [phone] APTTOrdered By: Emmie shah on 04-05-2021 aPTT Coag (Bld) [Time] 48.1 s High 20.0 - 30.5 s [facility] Work Phone: [phone] Comment on above: NOTE: The therapeuti c time for Heparin anticoagulation, based on Xa activity inhibition, is an APTT of 46-80 seconds. Interpretation and review of laboratory results Abnormal [facility] Work Phone: [phone] Test Performed by [employer] [address] [place] [address] [facility] Work Phone: 1 aPTT Coag (Bld) [Time] 43.9 s High 20.0 - 30.5 s [facility] Work Phone: [phone] Comment on above: NOTE: The therapeuti c time for Heparin anticoagulation, based on Xa activity inhibition, is an APTT of 46-80 seconds. Interpretation and review of laboratory results Abnormal [facility] Work Phone: 1 Test Performed by [employer] [address] [place] [address] [facility] Work Phone: 1 aPTT Coag (Bld) [Time] 43.3 s High 20.0-30.[address] [facility] Work Phone: Comment on above: NOTE: The therapeuti c time for Heparin anticoagulation, based on Xa activity inhibition, is an APTT of 46-80 seconds. Result Comment: NOTE : The therapeutic time for Heparin anticoagulation, based on Xa activity inhibition, is an APTT of 46-80 seconds. Performed By: #### T SH5, MBF33, CKMBS, LIPD2 #### [employer] [address] [place] [phone] Interpretation and review of laboratory results Abnormal [facility] Work Phone: 1 Test Performed by [employer] [address] [place] [address] [facility] Work Phone: 1 aPTT Coag (Bld) [Time] 51.8 s High 20.0 - 30.5 s [facility] Work Phone: Comment on above: NOTE: The therapeuti c time for Heparin anticoagulation, based on Xa activity inhibition, is an APTT of 46-80 seconds. Interpretation and review of laboratory results Abnormal [facility] Work Phone: Test Performed by [facility], [address] [place] [id number] [place] [address] Work Phone: APTTon 04-05-2021 aPTT Coag (Bld) [Time] 43.9 s High 20.0-30.5 [facility] Comment on above: Result Comment: NOTE : The therapeutic time for Heparin anticoagulation, based on Xa activity inhibition, is an APTT of 46-80 seconds. Performed By: #### A CTBO #### [address] aPTT Coag (Bld) [Time] 51.8 s High 20.0-30.5 [facility] Comment on above: Result Comment: NOTE : The therapeutic time for Heparin anticoagulation, based on Xa activity inhibition, is an APTT of 46-80 seconds. Performed By: #### B GLU #### [address] Add On Lab TestOrdered By: Leah Sylvester on 04-05-2021 Add On Accepted [facility] Work Phone: Comment on above: Specimen available & acceptable for analysis. Test Performed by [facility] [employer], [address] [place] [id number] [place] [address] Work Phone: Add on test from HISon 04-05 Add on test from HIS Accepted Normal [facility] Comment on above: Result Comment: Spec imen available & acceptable for analysis. Performed By: #### B GLU #### [address] Basic Metabolic Panelon 05-0 Calcium [Mass/Vol] 9.8 mg/dL Normal 8.4-10.4 [facility] Comment on above: Performed By: #### T SH5, MBF33, CKMBS, LIPD2 #### [address] Anion gap [Moles/Vol] 10 mmol/L Normal 3-[address] [facility] Comment on above: Performed By: #### T SH5, MBF33, CKMBS, LIPD2 #### [address] CO2 [Moles/Vol] 26 mmol/L Normal 22-30 [facility] Comment on above: Performed By: #### T SH5, MBF33, CKMBS, LIPD2 #### [address] Creatinine [Mass/Vol] 0.70 mg/dL Normal 0.52-1.[address] [facility] Comment on above: Performed By: #### T SH5, MBF33, CKMBS, LIPD2 #### [address] [address] GFR/1.73 sq M.predicted among blacks MDRD (S/P/Bld) [Vol rate/Area] mL/min/{1.73_m2} Normal >60 [facility] Comment on above: Performed By: #### T SH5, MBF33, CKMBS, LIPD2 #### [address] GFR/1.73 sq M.predicted among non-blacks MDRD (S/P/Bld) [Vol rate/Area] 86.9 mL/min/{1.73_m2} Normal >60 [facility] Comment on above: Result Comment: KDIG O guidelines provide the following GFR categories: Stage GFR(ml/min/1.73 m2) Terms G1 >=90 Normal or high G2 60-89 Mildly decreased* G3a 45-59 Mildly to moderately decreased G3b 30-44 Moderately to severely decreased G4 15-29 Severely decreased G5 <15 Kidney failure *Relative to young adult level. In the absence of evidence of kidney damage, neither GFR category G1 nor G2 fulfill the criteria for CKD. The CKD-EPI equation is validated in individuals 18 years of age and older. Currently the best equation for estimating glomerular filtration rate (GFR) from serum creatinine in children is the Bedside Murcia equation. It is less accurate in patients with extremes of muscle mass, restriction of dietary protein, ingestion of creatine, extra-renal metabolism of creatinine, or treatment with medications that affect renal tubular creatinine secretion. Performed By: #### T MARGARET5, MBF33, CKMBS, LIPD2 #### [facility] [address] [place], [place] Glucose [Mass/Vol] 124 mg/dL High 70-100 [facility] Comment on above: Performed By: #### T SH5, MBF33, CKMBS, LIPD2 #### [place] [place], [place] Urea nitrogen [Mass/Vol] 22 mg/dL High 7-20 [facility] Comment on above: Performed By: #### T SH5, MBF33, CKMBS, LIPD2 #### [place] [place], [place] Chloride [Moles/Vol] 102 mmol/L Normal 98-107 [facility] Comment on above: Performed By: #### T SH5, MBF33, CKMBS, LIPD2 #### [place] [address] [place], [place] Potassium [Moles/Vol] 3.6 mmol/L Normal 3.5-5.[address] [facility] Comment on above: Performed By: #### T SH5, MBF33, CKMBS, LIPD2 #### [place] [address] [place], [place] Sodium [Moles/Vol] 137 mmol/L Normal 135-145 [facility] Comment on above: Performed By: #### T SH5, MBF33, CKMBS, LIPD2 #### [place] [address] [place], [place] Basic Metabolic PanelOrdered By: Emmie Spring on 04-05-2021 Anion gap [Moles/Vol] 10 mmol/L 3 - 13 mmol/L [facility] Work Phone: Calcium [Mass/Vol] 9.8 mg/dL 8.4 - 10. 4 mg/dL [facility] Work Phone: Chloride [Moles/Vol] 102 mmol/L 98 - 10 7 mmol/L [facility] Work Phone: [phone] CO2 [Moles/Vol] 26 mmol/L 22 - 30 mmol/L [facility] Work Phone: [phone] Creatinine [Mass/Vol] 0.7 mg/dL 0.52 - 1.25 mg/dL [employer] Work Phone: [phone] IF NonAfrican Swiss 86.9 mL/min >60 [facility] Work Phone: [phone] Comment on above: KDIGO guidelines pro vide the following GFR categories: Stage GFR(ml/min/1.73 m2) Terms G1 >=90 Normal or high G2 60-89 Mildly decreased* G3a 45-59 Mildly to moderately decreased G3b 30-44 Moderately to severely decreased G4 15-29 Severely decreased G5 <15 Kidney failure *Relative to young adult level. In the absence of evidence of kidney damage, neither GFR category G1 nor G2 fulfill the criteria for CKD. The CKD-EPI equation is validated in individuals 18 years of age and older. Currently the best equation for estimating glomerular filtration rate (GFR) from serum creatinine in children is the Bedside Murcia equation. It is less accurate in patients with extremes of muscle mass, restriction of dietary protein, ingestion of creatine, extra-renal metabolism of creatinine, or treatment with medications that affect renal tubular creatinine secretion. GFR/1.73 sq M.predicted among blacks MDRD (S/P/Bld) [Vol rate/Area] mL/min/{1.73_m2} >60 mL/min [facility] Work Phone: [phone] Glucose [Mass/Vol] 124 mg/dL High 70 - 100 mg/dL [facility] Work Phone: [phone] Potassium [Moles/Vol] 3.6 mmol/L 3.5 - 5.1 mmol/L [employer] Work Phone: [phone] Sodium [Moles/Vol] 137 mmol/L 135 - 145 mmol/L [facility] Work Phone: [phone] Urea nitrogen (BldV) [Mass/Vol] 22 mg/dL High 7 - 20 mg/dL [employer] Work Phone: [phone] CBC Auto DifferentialOrdered By: Emmie Spring on 04-05-2021 Absolute Baso # 0.1 10*3/uL 0.0 - 0.2 10*3/uL [facility] Work Phone: [phone] Absolute Neut # 4.2 10*3/uL 1.8 - 7.0 10*3/uL [facility] Work Phone: [phone] Basophils/100 WBC (Bld) 0.8 % 0.0 - 2.0 % [facility] Work Phone: Eosinophils (Bld) [#/Vol] 0.4 10*3/uL 0. 0 - 0.5 10*3/uL [facility] Work Phone: 1 22 Eosinophils/100 WBC (Bld) 5.3 % 1.0 - 6.0 % [facility] Work Phone: Granulocytes/100 WBC (Bld) 51.9 % 40.0 - 80.0 % [facility] Work Phone: Hematocrit (Bld) [Volume fraction] 34.4 % Low 35.0 - 47.0 % [facility] Work Phone: Hemoglobin.gastrointestin al spec 1 Ql (Stl) 11.6 g/dL Low 11.7 - 16.0 g/dL [facility] Work Phone: [phone] Interpretation and review of laboratory results Abnormal [facility] Work Phone: 1 Lymphocytes (Bld) [#/Vol] 2.8 10*3/uL 1. 0 - 4.3 10*3/uL [facility] Work Phone: 22 Lymphocytes/100 WBC (Bld) 34.7 % 20 .0 - 40.0 % [facility] Work Phone: MCH (RBC) [Entitic mass] 27.8 pg 26. 0 - 34.0 pg [facility] Work Phone: MCHC (RBC) [Mass/Vol] 33.7 % 32.0 - 36.0 % [facility] Work Phone: MCV (RBC) [Entitic vol] 82.6 fL 79.0 - 98.0 fL [facility] Work Phone: [phone] Monocytes (Bld) [#/Vol] 0.6 10*3/uL 0.0 - 0.8 10*3/uL [facility] Work Phone: 1 22 Monocytes/100 WBC (Bld) 7.3 % 2.0 - 10.0 % [facility] Work Phone: 1 Platelet distribution width (Bld) [Ratio] 15.2 % High 11.5 - 14.5 % [employer] Work Phone: 1 Platelet mean volume (Bld) [Entitic vol] 10.7 fL High 7.4 - 10.4 fL [facility] Work Phone: 1 Platelets (Bld) [#/Vol] 168 10*3/uL 140 - 440 10*3/uL [facility] Work Phone: 1 RBC (Bld) [#/Vol] 4.16 10*6/uL 3.80 - 5.2 0 10*6/uL [employer] Work Phone: 1 WBC (Bld) [#/Vol] 8.1 10*3/uL 3.6 - 10.7 10*3/uL [employer] Work Phone: 1 Test Performed by [employer] [facility] [employer] [place] [address] [employer] Work Phone: CK WITH REFLEX CK-MBOrdered By: Marcus Nuñez on 04-05-2021 CK [Catalytic activity/Vol] 282 U/L High 30 - 170 U/L [employer] Work Phone: 1 Test Performed by [employer] [facility] [place] [address] [employer] Work Phone: CK-MB IndexOrdered By: Kourtney Nuñez on 04-05-2021 CK-MB Index 2.5 [employer] Work Phone: 1 CK.MB [Mass/Vol] 7.1 ng/mL High 0.0 - 2.4 ng/mL [employer] Work Phone: 1 Comment on above: Both the CKMB and th e Relative Index must be abnormal for clinical significance. Interpretation and review of laboratory results Abnormal [facility] Work Phone: Test Performed by [facility] [employer] [facility], [address] [place] [address] [facility] Work Phone: CKMB Fractionationon 021 CK.MB [Mass/Vol] 7.1 ng/mL High 0.0-2.4 [facility] Comment on above: Result Comment: Both the CKMB and the Relative Index must be abnormal for clinical significance. Performed By: #### T SH5, MBF33, CKMBS, LIPD2 #### [facility] [address] [place] [address] Relative Index 2.5 Normal 0.0-3.0 [facility] Comment on above: Performed By: #### T SH5, MBF33, CKMBS, LIPD2 #### [place] [address] [place] [address] CKMB Screenon 04-05-2021 CK [Catalytic activity/Vol] 282 U/L High 30-170 [facility] Comment on above: Performed By: #### T SH5, MBF33, CKMBS, LIPD2 #### [address] [address] [place] [address] CR Abdomen APon 04-05-2021 CR Abdomen AP Patient Name: INDIRA HATCH Diagnostic Radiology ACCESSION EXAM DATE/TIME PROCEDURE ORDERING PROVIDER [id number] 04/05/2021 15:54 EDT CR Abdomen AP [id number] EMMIE EVANS CPT code 71597 Reason For Exam (CR Abdomen AP) Preparation for MRI Report Clinical indication: MRI clearance. COMPARISON: None. TECHNIQUE: AP radiographs were obtained of the abdomen and pelvis. FINDINGS: There is a nonobstructive bowel gas pattern. A moderate amount of stool is present within the colon. The visualized lung bases are clear. There are severe degenerative changes of the lumbar spine. The patient is status post laminectomy and instrumented arthrodesis of the lower lumbar spine. Scattered metallic densities are present likely due to prior hernia mesh repair. IMPRESSION: Nonobstructive bowel gas pattern. Report Dictated on Final Dictated: 04/05/2021 4:01 pm Dictating Physician: MD PRIETO YUN ROBERT Signed Date and Time: 04/05/2021 4:06 pm Signed by: MD PRIETO YUN ROBERT Transcribed Date and Time: 04/05/2021 4:01 Normal [facility] CR Chest Portableon 04-05-20 CR Chest Portable [id number] Diagnostic Radiology ACCESSION EXAM DATE/TIME PROCEDURE ORDERING PROVIDER [id number] 04/05/2021 15:54 EDT CR Chest Portable [id number] ANGUIANO CPT code 32881 Reason For Exam (CR Chest Portable) Dyspnea Report CLINICAL INDICATION: Dyspnea COMPARISON: 04/04/2021 TECHNIQUE: Single portable AP radiograph of the chest. FINDINGS: LUNGS/PLEURA:Clear with no acute infiltrate or effusion. No pneumothorax. The trachea is midline. MEDIASTINUM:Heart size and mediastinal contours are normal. 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1950 Requested By: MARCUS NUÑEZ Order Number: [id number] Reading MD: Nestor Pan Measurements Intervals [place] Rate: 88 P: 42 WI: 184 QRS: -24 QRSD: 102 T: 93 QT: 362 QTc: 438 Interpretive Statements Sinus rhythm Borderline left axis deviation anterior infarct, old Electronically Signed On 04-05-2021 19:05:02 EDT by Nestor Pan [facility] Work Phone: Nikita, [facility] Incoming Cardiology Results From [facility] [place] - 04/05/2021 7:06 PM EDT [facility] Test Date: 2021-04-05 Pat Name: INDIRA HATCH Department: 1A1C Room: 130 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1950 Requested By: MARCUS NUÑEZ Order Number: [id number] Reading MD: Nestor Pan Measurements Intervals [place] Rate: 88 P: 42 WI: 184 QRS: -24 QRSD: 102 T: 93 QT: 362 QTc: 438 Interpretive Statements Sinus rhythm Borderline left axis deviation anterior infarct, old Electronically Signed On 04-05-2021 19:05:02 EDT by Nestor Pan [facility] Work Phone: EKG 12 leadOrdered By: Kourtney Nuñez on 04-05-2021 [facility] Test Date: 2021-04-04 Pat Name: INDIRA HATCH Department: 1A Room: 130 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1950 Requested By: MARCUS NUÑEZ Order Number: [id number] Reading MD: Nestor Pan Measurements Intervals [place] Rate: 92 P: 26 WI: 173 QRS: -14 QRSD: 100 T: 80 QT: 397 QTc: 492 Interpretive Statements Sinus rhythm Anteroseptal infarct, old Electronically Signed On 04-05-2021 18:39:52 EDT by Nestor Pan [facility] Work Phone: Nikita, [facility] Incoming Cardiology Results From [facility] [place] - 04/05/2021 6:40 PM EDT [facility] Test Date: 2021-04-04 Pat Name: INDIRA HATCH Department: 1A1C Room: 130 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 Results may be 10%-15% lower than serum/plasma values. (CLIA ID [id number]) Performed By: #### T SH5, MBF33, CKMBS, LIPD2 #### [facility] [employer] [facility] [address], [place] Glucose [Mass/Vol] 184 mg/dL [facility] 70-100 [facility] Comment on above: Result Comment: Test performed by glucose meter. Results may be 10%-15% lower than serum/plasma values. (CLIA ID [id number]) Performed By: #### T SH5, MBF33, CKMBS, LIPD2 #### [facility] [employer] [facility] [address] [place], [place] Glucose [Mass/Vol] 228 mg/dL [facility] 70-100 [facility] Comment on above: Result Comment: Test performed by glucose meter. Results may be 10%-15% lower than serum/plasma values. (CLIA ID [id number]) Performed By: #### T SH5, MBF33, CKMBS, LIPD2 #### [facility] [employer] [facility] [address], [place] Hemogram w/ Autodiffon 04-05 Abs Baso Cnt 0.1 10*3/uL Normal 0.0-0.2 [facility] Comment on above: Performed By: #### T SH5, MBF33, CKMBS, LIPD2 #### [facility] [address] [place], [place] Abs Neutrophile Cnt 4.2 10*3/uL Normal 1.8-7.0 [facility] Comment on above: Performed By: #### T SH5, MBF33, CKMBS, LIPD2 #### [address] [address] [address] [place], [place] Basophils/100 WBC (Bld) 0.8 % Normal 0.0-2.0 S [facility] Comment on above: Performed By: #### T SH5, MBF33, CKMBS, LIPD2 #### [address] [address] [place], [place] Eosinophils (Bld) [#/Vol] 0.4 10*3/uL Normal 0.0-0.5 [facility] Comment on above: Performed By: #### T SH5, MBF33, CKMBS, LIPD2 #### [address] [address] [place], [place] Eosinophils/100 WBC (Bld) 5.3 % Normal 1.0-6.0 [facility] Comment on above: Performed By: #### T SH5, MBF33, CKMBS, LIPD2 #### [address] Erythrocyte distribution width (RBC) [Ratio] 15.2 % High 11.5-14.5 [facility] Comment on above: Performed By: #### T SH5, MBF33, CKMBS, LIPD2 #### [address] Granulocytes/100 WBC (Bld) 51.9 % Normal 40.0-80.0 [facility] Comment on above: Performed By: #### T SH5, MBF33, CKMBS, LIPD2 #### [address] [address] [address] [place], [place] Hematocrit (Bld) [Volume fraction] 34.4 % Low 35.0-47.0 [facility] Comment on above: Performed By: #### T SH5, MBF33, CKMBS, LIPD2 #### [address] Hemoglobin (Bld) [Mass/Vol] 11.6 g/dL Low 11.7-16.0 [facility] Comment on above: Performed By: #### T SH5, MBF33, CKMBS, LIPD2 #### [address] [address] [address] [place], [place] Lymphocytes (Bld) [#/Vol] 2.8 10*3/uL Normal 1.0-4.3 [facility] Comment on above: Performed By: #### T SH5, MBF33, CKMBS, LIPD2 #### [address] [address] [place], [place] Lymphocytes/100 WBC (Bld) 34.7 % Normal 20.0-40.0 [facility] Comment on above: Performed By: #### T SH5, MBF33, CKMBS, LIPD2 #### [address] MCH (RBC) [Entitic mass] 27.8 pg Normal 26.0-34.0 [facility] Comment on above: Performed By: #### T SH5, MBF33, CKMBS, LIPD2 #### [address] MCHC 33.7 % Normal 32.0-36.0 [facility] Comment on above: Performed By: #### T SH5, MBF33, CKMBS, LIPD2 #### [address] MCV (RBC) [Entitic vol] 82.6 fL Normal 79.0-98.0 [facility] Comment on above: Performed By: #### T SH5, MBF33, CKMBS, LIPD2 #### [address] Monocytes (Bld) [#/Vol] 0.6 10*3/uL Normal 0.0-0.8 [facility] Comment on above: Performed By: #### T SH5, MBF33, CKMBS, LIPD2 #### [address] Monocytes/100 WBC (Bld) 7.3 % Normal 2.0-10.0 [facility] Comment on above: Performed By: #### T SH5, MBF33, CKMBS, LIPD2 #### [facility] [address], [place] Platelet mean volume (Bld) [Entitic vol] 10.7 fL High 7.4-10.4 [facility] Comment on above: Performed By: #### T SH5, MBF33, CKMBS, LIPD2 #### [facility] [address] [place], [place] Platelets (Bld) [#/Vol] 168 10*3/uL Normal 140-440 [facility] Comment on above: Performed By: #### T SH5, MBF33, CKMBS, LIPD2 #### [address] [address] [place], [place] RBC (Bld) [#/Vol] 4.16 10*6/uL Normal 3.80-5.20 [facility] Comment on above: Performed By: #### T SH5, MBF33, CKMBS, LIPD2 #### [address] [address] [place], [place] WBC (Bld) [#/Vol] 8.1 10*3/uL Normal 3.6-10.7 [facility] Comment on above: Performed By: #### T SH5, MBF33, CKMBS, LIPD2 #### [address] [address] [address] [place], [place] LACTIC ACID, PLASMAOrdered B y: Jerad Sylvester on 04-05-2021 Lactate [Moles/Vol] 1.5 mmol/L 0.7 - 2. 0 mmol/L [facility] Work Phone: Lactic Acidon 04-05-2021 Lactate [Moles/Vol] 1.5 mmol/L Normal 0.7-2.0 [facility] Comment on above: Performed By: #### T SH5, MBF33, CKMBS, LIPD2 #### [address] [address] [address] [place], [place] Magnesiumon 04-05-2021 Magnesium [Mass/Vol] 2.5 mg/dL High 1.6-2.3 [facility] [employer] Comment on above: Performed By: #### T SH5, MBF33, CKMBS, LIPD2 #### [facility] [address] [place] [phone] MagnesiumOrdered By: Silvano Spring on 04-05-2021 Magnesium [Mass/Vol] 2.5 mg/dL High 1.6 - 2 .3 mg/dL [employer] Work Phone: [phone] Panel InformationOrdered By: Emmie Spring on 04-05-2021 Interpretation and review of laboratory results Abnormal [facility] Work Phone: [phone] Test Performed by [employer] [address] [place] [id number] [place], [place] [address]A Work Phone: [phone] Panel InformationOrdered By: Marcus Nuñez on 04-05-2021 Interpretation and review of laboratory results Abnormal [facility] Work Phone: [phone] Panel InformationOrdered By: Jerad Sylvester on 04-05-2021 Test Performed by [employer] [address] [place] [address] [facility] Work Phone: [phone] POCT GlucoseOrdered By: Kristopher Stubbs on 04-05-2021 Glucose [Mass/Vol] 267 mg/dL High 70 - 100 mg/dL [facility] Work Phone: [phone] Comment on above: Test performed by gl ucose meter. Results may be 10%-15% lower than serum/plasma values. (CLIA ID [id number]) Interpretation and review of laboratory results Abnormal [facility] Work Phone: [phone] Test Performed by [employer] [address] [place] [address] [facility] Work Phone: [phone] Glucose [Mass/Vol] 184 mg/dL High 70 - 100 mg/dL [facility] Work Phone: [phone] Comment on above: Test performed by gl ucose meter. Results may be 10%-15% lower than serum/plasma values. (CLIA ID [id number]) Interpretation and review of laboratory results Abnormal [facility] Work Phone: [phone] Test Performed by [employer], [address] [place] [id number] [place] [address] Work Phone: [phone] Glucose [Mass/Vol] 228 mg/dL High 70 - 100 mg/dL [facility] Work Phone: [phone] Comment on above: Test performed by gl ucose meter. Results may be 10%-15% lower than serum/plasma values. (CLIA ID [id number]) Interpretation and review of laboratory results Abnormal [facility] Work Phone: [phone] Test Performed by [facility], [address] [place] [id number] [place] [address] Work Phone: [phone] Phosphoruson 04-05-2021 Phosphate [Mass/Vol] 4.3 mg/dL Normal 2.5-4.5 [facility] Comment on above: Performed By: #### T SH5, MBF33, CKMBS, LIPD2 #### [facility] [employer] [address] [place] [address] PhosphorusOrdered By: Brennen Spring on 04-05-2021 Phosphate [Mass/Vol] 4.3 mg/dL 2.5 - 4 .5 mg/dL [facility] Work Phone: [phone] Procalcitoninon 04-05-2021 Procalcitonin < 0.10 Normal <0.10 [facility] Comment on above: Performed By: #### T SH5, MBF33, CKMBS, LIPD2 #### [facility] [employer] [address] [place] [address] Interpretation See Below Normal [facility] Comment on above: Result Comment: PCT <0.50 = Low risk of severe sepsis and/or septic shock. PCT >2.00 = High risk of severe sepsis and/or septic shock. Performed By: #### T SH5, MBF33, CKMBS, LIPD2 #### [facility] [address] [place] [address] ProcalcitoninOrdered By: Janes Nuñez on 04-05-2021 Interpretation See Below [facility] Work Phone: Comment on above: PCT <0.50 = Low risk of severe sepsis and/or septic shock. PCT >2.00 = High risk of severe sepsis and/or septic shock. Procalcitonin <0.10 <0.10 ng/mL [employer] Work Phone: Test Performed by [employer] [address] [place] [address] [employer] Work Phone: TroponinOrdered By: Marcus Nuñez on 04-05-2021 Interpretation and review of laboratory results Abnormal [employer] Work Phone: Troponin I.cardiac [Mass/Vol] 2.520 ng/mL High 0.000 - 0.034 ng/mL [employer] Work Phone: Comment on above: . Test Performed by [employer] [address] [place] [address] [employer] Work Phone: Troponin Ion 04-05-2021 Troponin I.cardiac [Mass/Vol] 2.520 ng/mL High 0.000-0.034 [employer] Comment on above: Result Comment: . Performed By: #### T SH5, MBF33, CKMBS, LIPD2 #### [employer] [address] [place] [phone] XR ABDOMEN (KUB) (SINGLE AP VIEW)Ordered By: Emmie Spring on 04-05-2021 Patient Name: INDIRA HATCH Diagnostic Radiology ACCESSION EXAM DATE/TIME PROCEDURE ORDERING PROVIDER [id number] 04/05/2021 15:54 EDT CR Abdomen AP [id number] EMMIE EVANS CPT code 26646 Reason For Exam (CR Abdomen AP) Preparation for MRI Report Clinical indication: MRI clearance. COMPARISON: None. TECHNIQUE: AP radiographs were obtained of the abdomen and pelvis. FINDINGS: There is a nonobstructive bowel gas pattern. A moderate amount of stool is present within the colon. The visualized lung bases are clear. There are severe degenerative changes of the lumbar spine. The patient is status post laminectomy and instrumented arthrodesis of the lower lumbar spine. Scattered metallic densities are present likely due to prior hernia mesh repair. IMPRESSION: Nonobstructive bowel gas pattern. Report Dictated on --- Final --- Dictated: 04/05/2021 4:01 pm Dictating Physician: MD PRIETO YUN ROBERT Signed Date and Time: 04/05/2021 4:06 pm Signed by: MD PRIETO YUN ROBERT Transcribed Date and Time: 04/05/2021 4:01 [facility] Work Phone: Nik[facility], [facility] Incoming Radiology Results From [facility] - 04/05/2021 4:07 PM EDT Patient Name: INDIRA HATCH Diagnostic Radiology ACCESSION EXAM DATE/TIME PROCEDURE ORDERING PROVIDER [id number] 04/05/2021 15:54 EDT CR Abdomen AP EMMIE XAVIER CPT code 55040 Reason For Exam (CR Abdomen AP) Preparation for MRI Report Clinical indication: MRI clearance. COMPARISON: None. TECHNIQUE: AP radiographs were obtained of the abdomen and pelvis. FINDINGS: There is a nonobstructive bowel gas pattern. A moderate amount of stool is present within the colon. The visualized lung bases are clear. There are severe degenerative changes of the lumbar spine. The patient is status post laminectomy and instrumented arthrodesis of the lower lumbar spine. Scattered metallic densities are present likely due to prior hernia mesh repair. IMPRESSION: Nonobstructive bowel gas pattern. Report Dictated on --- Final --- Dictated: 04/05/2021 4:01 pm Dictating Physician: MD PRIETO YUN ROBERT Signed Date and Time: 04/05/2021 4:06 pm Signed by: MD PRIETO YUN ROBERT Transcribed Date and Time: 04/05/2021 4:01 [facility] Work Phone: XR CHEST PORTABLEOrdered By: Emmie Spring on 04-05-2021 Patient Name: INDIRA HATCH Diagnostic Radiology ACCESSION EXAM DATE/TIME PROCEDURE ORDERING PROVIDER [id number] 04/05/2021 15:54 EDT CR Chest Portable EMMIE XAVIER CPT code 65210 Reason For Exam (CR Chest Portable) Dyspnea Report CLINICAL INDICATION: Dyspnea COMPARISON: 04/04/2021 TECHNIQUE: Single portable AP radiograph of the chest. FINDINGS: LUNGS/PLEURA:Clear with no acute infiltrate or effusion. No pneumothorax. The trachea is midline. MEDIASTINUM:Heart size and mediastinal contours are normal. VASCULARITY: Normal BONES:Unremarkable IMPRESSION: Lungs clear with no acute cardiopulmonary disease process Report Dictated on --- Final --- Dictated: 04/05/2021 3:59 pm Dictating Physician: MD PRIETO YUN ROBERT Signed Date and Time: 04/05/2021 4:01 pm Signed by: MD PRIETO YUN ROBERT Transcribed Date and Time: 04/05/2021 3:59 [facility] Work Phone: [facility], [facility] Incoming Radiology Results From [facility] - 04/05/2021 4:02 PM EDT [facility]: [id number] Diagnostic Radiology ACCESSION EXAM DATE/TIME PROCEDURE ORDERING PROVIDER [id number] 04/05/2021 15:54 EDT CR Chest Portable EMMIE XAVIER CPT code 68754 Reason For Exam (CR Chest Portable) Dyspnea Report CLINICAL INDICATION: Dyspnea COMPARISON: 04/04/2021 TECHNIQUE: Single portable AP radiograph of the chest. FINDINGS: LUNGS/PLEURA:Clear with no acute infiltrate or effusion. No pneumothorax. The trachea is midline. MEDIASTINUM:Heart size and mediastinal contours are normal. VASCULARITY: Normal BONES:Unremarkable IMPRESSION: Lungs clear with no acute cardiopulmonary disease process Report Dictated on --- Final --- Dictated: 04/05/2021 3:59 pm Dictating Physician: MD PRIETO YUN ROBERT Signed Date and Time: 04/05/2021 4:01 pm Signed by: MD PRIETO YUN ROBERT Transcribed Date and Time: 04/05/2021 3:59 [facility] Work Phone: Add On Lab TestOrdered By: Leah Sylvester on 04-04-2021 Add On Rejected [facility] Work Phone: [phone] Comment on above: Quantity not suffici ent for testing. Test Performed by [employer] [address] [place] [address] [employer] Work Phone: [phone] Add on test from HISon 04-04 Add on test from HIS Rejected Normal [employer] Comment on above: Result Comment: Jose tity not sufficient for testing. Performed By: #### T SH5, MBF33, CKMBS, LIPD2 #### [employer] [address] [place] [address] CBC auto differentialOrdered By: Marcus Nuñez on 04-04-2021 Absolute Baso # 0.1 10*3/uL 0.0 - 0.2 10*3/uL [employer] Work Phone: [phone] Absolute Neut # 5.8 10*3/uL 1.8 - 7.0 10*3/uL [employer] Work Phone: [phone] Basophils/100 WBC (Bld) 1.5 % 0.0 - 2.0 % [employer] Work Phone: [phone] Eosinophils (Bld) [#/Vol] 0.3 10*3/uL 0. 0 - 0.5 10*3/uL [facility] Work Phone: [phone] Eosinophils/100 WBC (Bld) 2.6 % 1.0 - 6.0 % [employer] Work Phone: [phone] Granulocytes/100 WBC (Bld) 60.5 % 40.0 - 80.0 % [facility] Work Phone: [phone] Hematocrit (Bld) [Volume fraction] 35.9 % 35.0 - 47.0 % [employer] Work Phone: [phone] Hemoglobin.gastrointestin al spec 1 Ql (Stl) 12.0 g/dL 11.7 - 16.0 g/dL [employer] Work Phone: [phone] Interpretation and review of laboratory results Abnormal [employer] Work Phone: [phone] Lymphocytes (Bld) [#/Vol] 2.8 10*3/uL 1. 0 - 4.3 10*3/uL [employer] Work Phone: [phone] Lymphocytes/100 WBC (Bld) 28.6 % 20 .0 - 40.0 % [employer] Work Phone: 1 MCH (RBC) [Entitic mass] 27.9 pg 26. 0 - 34.0 pg [employer] Work Phone: 1 MCHC (RBC) [Mass/Vol] 33.6 % 32.0 - 36.0 % [employer] Work Phone: MCV (RBC) [Entitic vol] 83.0 fL 79.0 - 98.0 fL [employer] Work Phone: Monocytes (Bld) [#/Vol] 0.7 10*3/uL 0.0 - 0.8 10*3/uL [employer] Work Phone: Monocytes/100 WBC (Bld) 6.8 % 2.0 - 10.0 % [employer] Phone: Platelet distribution width (Bld) [Ratio] 15.3 % High 11.5 - 14.5 % [employer] Work Phone: 1 Platelet mean volume (Bld) [Entitic vol] 10.8 fL High 7.4 - 10.4 fL [employer] Work Phone: Platelets (Bld) [#/Vol] 181 10*3/uL 140 - 440 10*3/uL [employer] Work Phone: RBC (Bld) [#/Vol] 4.32 10*6/uL 3.80 - 5.2 0 10*6/uL [employer] Work Phone: WBC (Bld) [#/Vol] 9.6 10*3/uL 3.6 - 10.7 10*3/uL [employer] Work Phone: 1 Test Performed by [employer] [address] [employer] Work Phone: CK WITH REFLEX CK-MBOrdered By: Marcus Nuñez on 04-04-2021 CK [Catalytic activity/Vol] 298 U/L High 30 - 170 U/L [employer] Work Phone: [phone] CK with Reflex CK-MBOrdered By: Marcus Nuñez on 04-04-2021 CK [Catalytic activity/Vol] 298 U/L High 30 - 170 U/L [facility] Work Phone: [phone] CK-MB IndexOrdered By: Kourtney Nuñez on 04-04-2021 CK-MB Index 3.1 High [facility] Work Phone: [phone] CK.MB [Mass/Vol] 9.3 ng/mL High 0.0 - 2.4 ng/mL [facility] Work Phone: [phone] Comment on above: Both the CKMB and th e Relative Index must be abnormal for clinical significance. Interpretation and review of laboratory results Abnormal [facility] Work Phone: [phone] Test Performed by [employer] [address] [place] [address] [facility] Work Phone: 1 CK-MB Index 3.1 High [facility] Work Phone: 1 CK.MB [Mass/Vol] 9.3 ng/mL High 0.0 - 2.4 ng/mL [facility] Work Phone: [phone] Comment on above: Both the CKMB and th e Relative Index must be abnormal for clinical significance. Interpretation and review of laboratory results Abnormal [facility] Work Phone: [phone] Test Performed by [employer] [address] [place] [address] [facility] Work Phone: [phone] CKMB Fractionationon 021 CK.MB [Mass/Vol] 9.3 ng/mL High 0.0-2.4 [facility] [facility] Comment on above: Result Comment: Both the CKMB and the Relative Index must be abnormal for clinical significance. Performed By: #### T SH5, MBF33, CKMBS, LIPD2 #### [employer] [address] [place] [phone] Relative Index 3.1 High 0.0-3.0 [facility] Comment on above: Performed By: #### T SH5, MBF33, CKMBS, LIPD2 #### [facility] [address] [place] [address] CK.MB [Mass/Vol] 9.3 ng/mL High 0.0-2.4 [facility] Comment on above: Result Comment: Both the CKMB and the Relative Index must be abnormal for clinical significance. Performed By: #### T SH5, MBF33, CKMBS, LIPD2 #### [facility] [address] [place], [place] Relative Index 3.1 High 0.0-3.0 [facility] Comment on above: Performed By: #### T SH5, MBF33, CKMBS, LIPD2 #### [place] [address] [place], [place] CKMB Screenon 04-04-2021 CK [Catalytic activity/Vol] 298 U/L High 30-170 [facility] Comment on above: Performed By: #### B GLU #### [place] [address] [place], [place] CK [Catalytic activity/Vol] 298 U/L High 30-170 [facility] Comment on above: Performed By: #### T SH5, MBF33, CKMBS, LIPD2 #### [place] [address] [place], [place] CR Chest Portableon 04-04-20 21 CR Chest Portable Patient Name: INDIRA HATCH Diagnostic Radiology ACCESSION EXAM DATE/TIME PROCEDURE ORDERING PROVIDER [id number] 04/04/2021 20:54 EDT CR Chest Portable FACAROMARCUS Méndez CPT code 11504 Reason For Exam (CR Chest Portable) SOB Report PORTABLE CHEST (Frontal View) History: Dyspnea Comparison: None available Findings: Frontal portable chest view shows small left basilar atelectasis/infiltrat es. Both lungs show otherwise interstitial prominence without overt congestion. The heart is normal in size. There are atherosclerotic calcifications. There is no mediastinal widening or sizable pleural effusion. IMPRESSION: Left basilar atelectasis/infiltrat e. Follow-up suggested. Report Dictated on Final Dictated: 04/04/2021 8:49 pm Dictating Physician: MD AMAYA AHMAD Signed Date and Time: 04/04/2021 8:50 pm Signed by: MD AMAYA AHMAD Transcribed Date and Time: 04/04/2021 8:49 Normal [facility] Comp Panel with Mg Reflexon 04-04-2021 ALT [Catalytic activity/Vol] 24 U/L Normal 0-34 [facility] Comment on above: Result Comment: The ALT test is performed by an updated assay method. Please note that the reference intervals have been changed and are now sex specific. Performed By: #### B GLU #### [facility] [address] [place], [place] Calcium [Mass/Vol] 9.9 mg/dL Normal 8.4-10.4 [facility] Comment on above: Performed By: #### B GLU #### [place] [address] [place], [place] Glucose [Mass/Vol] 159 mg/dL High 70-100 [facility] Comment on above: Performed By: #### B GLU #### [facility] [address] [place], [place] Urea nitrogen [Mass/Vol] 22 mg/dL High 7-20 [facility] Comment on above: Performed By: #### B GLU #### [facility] [address] [place], [place] ALP [Catalytic activity/Vol] 43 U/L Normal 38-126 [facility] Comment on above: Performed By: #### B GLU #### [facility] [address] [place], [place] Anion gap [Moles/Vol] 12 mmol/L Normal 3-[address] [facility] Comment on above: Performed By: #### B GLU #### [facility] [address] [place], [place] AST [Catalytic activity/Vol] 49 U/L High 15-46 [facility] Comment on above: Performed By: #### B GLU #### [place] [address] [place], [place] Bilirubin [Mass/Vol] 1.1 mg/dL Normal 0.2-1.3 [facility] Comment on above: Performed By: #### B GLU #### [place] [address] [place], [place] CO2 [Moles/Vol] 25 mmol/L Normal 22-30 [facility] Comment on above: Performed By: #### B GLU #### [place] [address] [place], [place] Creatinine [Mass/Vol] 0.70 mg/dL Normal 0.52-1.[address] [facility] Comment on above: Performed By: #### B GLU #### [address] GFR/1.73 sq M.predicted among blacks MDRD (S/P/Bld) [Vol rate/Area] mL/min/{1.73_m2} Normal >60 [facility] Comment on above: Performed By: #### B GLU #### [place] [address] [place], [place] GFR/1.73 sq M.predicted among non-blacks MDRD (S/P/Bld) [Vol rate/Area] 86.9 mL/min/{1.73_m2} Normal >60 [facility] Comment on above: Result Comment: KDIG O guidelines provide the following GFR categories: Stage GFR(ml/min/1.73 m2) Terms G1 >=90 Normal or high G2 60-89 Mildly decreased* G3a 45-59 Mildly to moderately decreased G3b 30-44 Moderately to severely decreased G4 15-29 Severely decreased G5 <15 Kidney failure *Relative to young adult level. In the absence of evidence of kidney damage, neither GFR category G1 nor G2 fulfill the criteria for CKD. The CKD-EPI equation is validated in individuals 18 years of age and older. Currently the best equation for estimating glomerular filtration rate (GFR) from serum creatinine in children is the Bedside Murcia equation. It is less accurate in patients with extremes of muscle mass, restriction of dietary protein, ingestion of creatine, extra-renal metabolism of creatinine, or treatment with medications that affect renal tubular creatinine secretion. Performed By: #### B GLU #### [address], [place] Protein [Mass/Vol] 7.1 g/dL Normal 6.3-8.2 [facility] Comment on above: Performed By: #### B GLU #### [facility] [address] [place], [place] Chloride [Moles/Vol] 101 mmol/L Normal 98-107 [facility] Comment on above: Performed By: #### B GLU #### [place] [address] [place], [place] Potassium [Moles/Vol] 3.3 mmol/L Low 3.5-5.[address] [facility] Comment on above: Performed By: #### B GLU #### [place] [address] [place], [place] Sodium [Moles/Vol] 139 mmol/L Normal 135-145 [facility] Comment on above: Performed By: #### B GLU #### [place] [address] [place], [place] Albumin [Mass/Vol] 4.1 g/dL Normal 3.5-5.0 [facility] Comment on above: Performed By: #### B GLU #### [place] [address] [place], [place] Comprehensive Metabolic Pane l w/ Reflex to MGOrdered By: Marcus Nuñez on 04-04-2021 Albumin [Mass/Vol] 4.1 g/dL 3.5 - 5.0 g/dL [facility] Work Phone: ALP (Bld) [Catalytic activity/Vol] 43 U/L 38 - 126 U/L [facility] Work Phone: ALT [Catalytic activity/Vol] 24 U/L 0 - 34 U/L [facility] Work Phone: Comment on above: The ALT test is perf ormed by an updated assay method. Please note that the reference intervals have been changed and are now sex specific. Anion gap [Moles/Vol] 12 mmol/L 3 - 13 mmol/L [facility] Work Phone: AST [Catalytic activity/Vol] 49 U/L High 15 - 46 U/L [facility] Work Phone: [phone] Bilirubin [Mass/Vol] 1.1 mg/dL 0.2 - 1 .3 mg/dL [facility] Work Phone: [phone] Calcium [Mass/Vol] 9.9 mg/dL 8.4 - 10. 4 mg/dL [facility] Work Phone: [phone] Chloride [Moles/Vol] 101 mmol/L 98 - 10 7 mmol/L [facility] Work Phone: [phone] [Moles/Vol] 25 mmol/L 22 - 30 mmol/L [facility] Work Phone: [phone] Creatinine [Mass/Vol] 0.7 mg/dL 0.52 - 1.25 mg/dL [facility] Work Phone: [phone] EGFR IF NonAfrican Swiss 86.9 mL/min >60 [facility] Work Phone: [phone] Comment on above: KDIGO guidelines pro vide the following GFR categories: Stage GFR(ml/min/1.73 m2) Terms G1 >=90 Normal or high G2 60-89 Mildly decreased* G3a 45-59 Mildly to moderately decreased G3b 30-44 Moderately to severely decreased G4 15-29 Severely decreased G5 <15 Kidney failure *Relative to young adult level. In the absence of evidence of kidney damage, neither GFR category G1 nor G2 fulfill the criteria for CKD. The CKD-EPI equation is validated in individuals 18 years of age and older. Currently the best equation for estimating glomerular filtration rate (GFR) from serum creatinine in children is the Bedside Murcia equation. It is less accurate in patients with extremes of muscle mass, restriction of dietary protein, ingestion of creatine, extra-renal metabolism of creatinine, or treatment with medications that affect renal tubular creatinine secretion. Free PSA/Total PSA [Mass fraction] 7.1 g/dL 6.3 - 8.2 g/dL [facility] Work Phone: [phone] GFR/1.73 sq M.predicted among blacks MDRD (S/P/Bld) [Vol rate/Area] mL/min/{1.73_m2} >60 mL/min [facility] Work Phone: [phone] Glucose [Mass/Vol] 159 mg/dL High 70 - 100 mg/dL [facility] Work Phone: [phone] Potassium [Moles/Vol] 3.3 mmol/L Low 3.5 - 5.1 mmol/L [facility] Work Phone: [phone] Sodium [Moles/Vol] 139 mmol/L 135 - 145 mmol/L [facility] Work Phone: Urea nitrogen (BldV) [Mass/Vol] 22 mg/dL High 7 - 20 mg/dL [facility] Work Phone: [phone] Glucose,BedsideOrdered By: Kathleen Stubbs on 04-04-2021 Glucose [Mass/Vol] 156 mg/dL High 70-100 [facility] Work Phone: Comment on above: Test performed by gl ucose meter. Results may be 10%-15% lower than serum/plasma values. (CLIA ID [id number]) Result Comment: Test performed by glucose meter. Results may be 10%-15% lower than serum/plasma values. (CLIA ID [id number]) Performed By: #### T SH5, MBF33, CKMBS, LIPD2 #### [facility] [employer] [address] [place] [address] Hemoglobin A1Con 04-04-2021 Glucose [Mass/Vol] 174 mg/dL Normal [facility] Comment on above: Performed By: #### B GLU #### [facility] [employer] [place] [address] [place] [address] HbA1c (Bld) [Mass fraction] 7.7 % Abnormal [facility] Comment on above: Result Comment: Norm al less than 5.7% Prediabetes 5.7% to 6.4% Diabetes 6.5% or higher --HgbA1C levels may not be accurate in patients who have renal disease, received recent blood transfusions, are anemic, or who have dyshemoglobinemia. Performed By: #### B GLU #### [facility] [employer] [address] [address] Hemoglobin [id number] By: Qing Nuñez on 04-04-2021 HbA1c (Bld) [Mass fraction] 7.7 % Abnormal [facility] Work Phone: Comment on above: Normal less than 5.7 % Prediabetes 5.7% to 6.4% Diabetes 6.5% or higher --HgbA1C levels may not be accurate in patients who have renal disease, received recent blood transfusions, are anemic, or who have dyshemoglobinemia. Interpretation and review of laboratory results Abnormal [facility] Work Phone: Magnesium [Mass/Vol] 174 mg/dL [facility] Work Phone: Test Performed by [facility], [address] [place] [id number] [place] [address] Work Phone: Hemogram w/ Autodiffon 04-04 Abs Baso Cnt 0.1 10*3/uL Normal 0.0-0.2 [facility] Comment on above: Performed By: #### B GLU #### [address] [address] Abs Neutrophile Cnt 5.8 10*3/uL Normal 1.8-7.0 [facility] Comment on above: Performed By: #### B GLU #### [address] [address] Basophils/100 WBC (Bld) 1.5 % Normal 0.0-2.0 [facility] Comment on above: Performed By: #### B GLU #### [address] [address] Eosinophils (Bld) [#/Vol] 0.3 10*3/uL Normal 0.0-0.5 [facility] Comment on above: Performed By: #### B GLU #### [address] [address] Eosinophils/100 WBC (Bld) 2.6 % Normal 1.0-6.0 [facility] Comment on above: Performed By: #### B GLU #### [address] [address] Erythrocyte distribution width (RBC) [Ratio] 15.3 % High 11.5-14.5 [facility] Comment on above: Performed By: #### B GLU #### [place] [place], [place] Granulocytes/100 WBC (Bld) 60.5 % Normal 40.0-80.0 [facility] Comment on above: Performed By: #### B GLU #### [place] [place], [place] Hematocrit (Bld) [Volume fraction] 35.9 % Normal 35.0-47.0 [facility] Comment on above: Performed By: #### B GLU #### [place] [place], [place] Hemoglobin (Bld) [Mass/Vol] 12.0 g/dL Normal 11.7-16.0 [facility] Comment on above: Performed By: #### B GLU #### [address] [place], [place] Lymphocytes (Bld) [#/Vol] 2.8 10*3/uL Normal 1.0-4.3 [facility] Comment on above: Performed By: #### B GLU #### [place] [address] [place], [place] Lymphocytes/100 WBC (Bld) 28.6 % Normal 20.0-40.0 [facility] Comment on above: Performed By: #### B GLU #### [address] [place], [place] MCH (RBC) [Entitic mass] 27.9 pg Normal 26.0-34.0 [facility] Comment on above: Performed By: #### B GLU #### [place] [place] MCHC 33.6 % Normal 32.0-36.0 [facility] Comment on above: Performed By: #### B GLU #### [address] [place], [place] MCV (RBC) [Entitic vol] 83.0 fL Normal 79.0-98.0 [facility] Comment on above: Performed By: #### B GLU #### [place] [place], [place] Monocytes (Bld) [#/Vol] 0.7 10*3/uL Normal 0.0-0.8 [facility] Comment on above: Performed By: #### B GLU #### [place] [place] Monocytes/100 WBC (Bld) 6.8 % Normal 2.0-10.0 [facility] Comment on above: Performed By: #### B GLU #### [place] [place] Platelet mean volume (Bld) [Entitic vol] 10.8 fL High 7.4-10.4 [facility] Comment on above: Performed By: #### B GLU #### [place] [place] Platelets (Bld) [#/Vol] 181 10*3/uL Normal 140-440 [facility] Comment on above: Performed By: #### B GLU #### [place] [place] RBC (Bld) [#/Vol] 4.32 10*6/uL Normal 3.80-5.20 [facility] Comment on above: Performed By: #### B GLU #### [place] [place] WBC (Bld) [#/Vol] 9.6 10*3/uL Normal 3.6-10.7 [facility] Comment on above: Performed By: #### B GLU #### [place] [place] Lactic AcidOrdered By: Kourtney Nuñez on 04-04-2021 Lactate [Moles/Vol] 2.3 mmol/L Critically high 0.7-2.0 [facility] Work Phone: Comment on above: Performed By: #### B GLU #### [place] [place] Lactic acid, plasmaOrdered B y: Marcus Nuñez on 04-04-2021 Interpretation and review of laboratory results Abnormal [facility] Work Phone: Test Performed by [facility] [employer] [facility], [facility] [place] [address] [facility] Work Phone: Lipid Panelon 04-04-2021 Chol/HDL 5 Normal [facility] Comment on above: Result Comment: Ref Range: < 3 Low Risk for CHD 3-6 Mod Risk for CHD > 6 High Risk for CHD Performed By: #### T SH5, MBF33, CKMBS, LIPD2 #### [facility] [employer] [facility] [place] [address] Cholesterol [Mass/Vol] 169 mg/dL Normal < 200 [facility] Comment on above: Performed By: #### T SH5, MBF33, CKMBS, LIPD2 #### [facility] [employer] [facility] [place] [address] Cholesterol in HDL [Mass/Vol] 33 mg/dL Low 40-60 [facility] Comment on above: Performed By: #### T SH5, MBF33, CKMBS, LIPD2 #### [facility] [employer] [facility] [place] [address] Low Density Lipoprotein 89 mg/dL Normal <100 [facility] Comment on above: Performed By: #### T SH5, MBF33, CKMBS, LIPD2 #### [facility] [employer] [place] [address] [place] [address] Triglyceride [Mass/Vol] 236 mg/dL Abnormal <150 [facility] Comment on above: Performed By: #### T SH5, MBF33, CKMBS, LIPD2 #### [facility] [employer] [place] [address] [address] [place] [address] Lipid PanelOrdered By: Kourtney is Girish on 04-04-2021 Cholesterol [Mass/Vol] 169 mg/dL <[address] [facility] Work Phone: Cholesterol in HDL [Mass/Vol] 33 mg/dL Low 40 - 60 mg/dL [facility] Work Phone: Cholesterol in LDL [Mass/Vol] 89 mg/dL <100 [facility] Work Phone: Cholesterol.total/Cholest patrick in HDL [Mass ratio] 5 {ratio} [employer] Work Phone: Comment on above: Ref Range: < 3 Low Risk for CHD 3-6 Mod Risk for CHD > 6 High Risk for CHD Triglyceride [Mass/Vol] 236 mg/dL Abnormal <150 [facility] Work Phone: [phone] Magnesiumon 04-04-2021 Magnesium [Mass/Vol] 1.5 mg/dL Low 1.6-2.3 [employer] Comment on above: Performed By: #### B GLU #### [employer] [facility] [place] [address] MagnesiumOrdered By: Marcus Nuñez on 04-04-2021 Magnesium [Mass/Vol] 1.5 mg/dL Low 1.6 - 2 .3 mg/dL [employer] Work Phone: No Panel InformationOrdered By: Marcus Nuñez on 04-04-2021 Interpretation and review of laboratory results Abnormal [employer] Work Phone: [phone] Test Performed by [employer] [address] [place] [address] [employer] Work Phone: Interpretation and review of laboratory results Abnormal [employer] Work Phone: Test Performed by [employer] [address] [place] [address] [employer] Work Phone: Interpretation and review of laboratory results Abnormal [employer] Work Phone: Test Performed by [employer] [address] [place] [address] [employer] Work Phone: Prothrombin Timeon INR 1.1 Normal 0.9-1.1 [employer] Comment on above: Result Comment: Rafael mmended Anticoagulant Therapy: SEE BELOW ----- INR of 2.0 - 3.0 : - Prophylaxis of Venous Thrombosis (high-risk surgery) - Treatment of Venous Thrombosis - Treatment of Pulmonary Embolism (Includes tissue heart valves, Acute Myocardial Infarction to prevent systemic embolism, Valvular Heart Disease, and Atrial Fibrillation) ----- INR of 2.5 - 3.5 : - Mechanical Prosthetic Valves (high risk) - If oral anticoagulant therapy is used to prevent Myocardial Infarction Performed By: #### B GLU #### [employer] [address] [place] [address] PT Coag (PPP) [Time] 11.6 s Normal 9.0-12.0 [facility] [employer] Comment on above: Result Comment: . Performed By: #### B GLU #### [employer] [address] [place] [phone] Protime-INROrdered By: Kourtney Nuñez on 04-04-2021 INR Coag (Bld) [Relative time] 1.1 {INR} [employer] Work Phone: [phone] Comment on above: Recommended Anticoag ulant Therapy: SEE BELOW ----- INR of 2.0 - 3.0 : - Prophylaxis of Venous Thrombosis (high-risk surgery) - Treatment of Venous Thrombosis - Treatment of Pulmonary Embolism (Includes tissue heart valves, Acute Myocardial Infarction to prevent systemic embolism, Valvular Heart Disease, and Atrial Fibrillation) ----- INR of 2.5 - 3.5 : - Mechanical Prosthetic Valves (high risk) - If oral anticoagulant therapy is used to prevent Myocardial Infarction PT Coag (PPP) [Time] 11.6 s 9.0 - 1 2.0 s [employer] Work Phone: Comment on above: . Test Performed by [employer] [address] [place] [address] [employer] Work Phone: [phone] TSH without ReflexOrdered By : Marcus Nuñez on 04-04-2021 TSH Qn 2.269 u[IU]/mL 0.465 - 4.680 u[IU]/mL [employer] Work Phone: [phone] Test Performed by [employer] [address] [place] [address] [employer] Work Phone: [phone] Thyroid Stim. Hormoneon Thyroid Stim. Hormone 2.269 u[IU]/mL Normal 0.465-4.68 0 [facility] Comment on above: Performed By: #### T SH5, MBF33, CKMBS, LIPD2 #### [employer] [address] [place] [address] TroponinOrdered By: Marcsu Nuñez on 04-04-2021 Troponin I.cardiac [Mass/Vol] 3.040 ng/mL High 0.000 - 0.034 ng/mL [facility] Work Phone: Comment on above: . Troponin Ion 04-04-2021 Troponin I.cardiac [Mass/Vol] 3.040 ng/mL High 0.000-0.034 [facility] Comment on above: Result Comment: . Performed By: #### B GLU #### [facility] [address] [place] [address] XR CHEST PORTABLEOrdered By: Marcus Nuñez on 04-04-2021 Patient Name: INDIRA HATCH Diagnostic Radiology ACCESSION EXAM DATE/TIME PROCEDURE ORDERING PROVIDER [id number] 04/04/2021 20:54 EDT CR Chest Portable MARCUS NUÑEZ CPT code 72083 Reason For Exam (CR Chest Portable) SOB Report PORTABLE CHEST (Frontal View) History: Dyspnea Comparison: None available Findings: Frontal portable chest view shows small left basilar atelectasis/infiltrat es. Both lungs show otherwise interstitial prominence without overt congestion. The heart is normal in size. There are atherosclerotic calcifications. There is no mediastinal widening or sizable pleural effusion. IMPRESSION: Left basilar atelectasis/infiltrat e. Follow-up suggested. Report Dictated on --- Final --- Dictated: 04/04/2021 8:49 pm Dictating Physician: MD AMAYA AHMAD Signed Date and Time: 04/04/2021 8:50 pm Signed by: MD AMAYA AHMAD Transcribed Date and Time: 04/04/2021 8:49 [facility] Work Phone: Nikita, [facility] Incoming Radiology Results From [facility] - 04/04/2021 8:55 PM EDT Patient Name: INDIRA HATCH Diagnostic Radiology ACCESSION EXAM DATE/TIME PROCEDURE ORDERING PROVIDER [id number] 04/04/2021 20:54 EDT CR Chest Portable MARCUS NUÑEZ CPT code 66625 Reason For Exam (CR Chest Portable) SOB Report PORTABLE CHEST (Frontal View) History: Dyspnea Comparison: None available Findings: Frontal portable chest view shows small left basilar atelectasis/infiltrat es. Both lungs show otherwise interstitial prominence without overt congestion. The heart is normal in size. There are atherosclerotic calcifications. There is no mediastinal widening or sizable pleural effusion. IMPRESSION: Left basilar atelectasis/infiltrat e. Follow-up suggested. Report Dictated on --- Final --- Dictated: 04/04/2021 8:49 pm Dictating Physician: MD AMAYA AHMAD Signed Date and Time: 04/04/2021 8:50 pm Signed by: MD AMAYA AHMAD Transcribed Date and Time: 04/04/2021 8:49 [facility] Work Phone: Hemoglobin A1con 03-09-2018 Glucose 163 mg/dL High 68 - 126 mg/dL [facility] HbA1c 7.3 % High 4.2 - 6 % [facility] Interpretation and review of laboratory results Abnormal Invalid Interpretation Code [facility] Lipid Panelon 03-09-2018 Cholesterol 171 mg/dL Invalid Interpretation Code 100 - 199 mg/dL [facility] Cholesterol to HDL Ratio 5.3 {ratio} Invalid Interpretation Code [facility] HDL Cholesterol 139 mg/dL Invalid Interpretation Code [facility] HDL Cholesterol 32 mg/dL Low 40 - 59 mg/dL [facility] LDL Cholesterol 94 mg/dL Invalid Interpretation Code 10 - 130 mg/dL [facility] Triglyceride 225 mg/dL High 30 - 150 mg/dL [facility] Microalbumin, Urine, Randomo n 03-09-2018 ACR (microalbumin/creatinine) ratio 6 mg/g crea Invalid Interpretation Code 0 - 25 [facility] Interpretation and review of laboratory results Normal Invalid Interpretation Code [facility] Urine, creatinine 90.0 mg/dL Invalid Interpretation Code [facility] Urine, microalbumin 0.5 mg/dL Invalid Interpretation Code 0 - 1.8 mg/dL [facility] POC Glucoseon 12-13-2017 Glucose 170 mg/dL Invalid Interpretation Code [facility] Work Phone: Interpretation and review of laboratory results Abnormal Invalid Interpretation Code [facility] Work Phone: Glucose 172 mg/dL High 65 - 99 mg/dL [facility] Interpretation and review of laboratory results Abnormal Invalid Interpretation Code [facility] Basic Metabolic Panelon Anion gap 18 mmol/L Invalid Interpretation Code 10 - 20 mmol/L [facility] [facility] Bicarbonate (HCO3) 27 mmol/L Invalid Interpretation Code 21 - 32 mmol/L [facility] BUN/Creatinine Ratio 18.3 mg/mg Invalid Interpretation Code 10.0 - 20.0 [facility] Calcium 10.0 mg/dL Invalid Interpretation Code 8.4 - 10.2 mg/dL [facility] Chloride 99 mmol/L Invalid Interpretation Code 98 - 108 mmol/L [facility] Creatinine 0.71 mg/dL Invalid Interpretation Code 0.6 - 1.2 mg/dL [facility] eGFR (non-black) The eGFR should be used for monitoring renal function only and not for medication dosing. Invalid Interpretation Code [facility] eGFR (non-black) 88 mL/min/{1.73_m2} Invalid Interpretation Code >=60 [facility] Glucose 138 mg/dL High 65 - 99 mg/dL [facility] Interpretation and review of laboratory results Abnormal Invalid Interpretation Code [facility] Potassium 4.6 mmol/L Invalid Interpretation Code 3.5 - 5.1 mmol/L [facility] Sodium 139 mmol/L Invalid Interpretation Code 135 - 145 mmol/L [facility] Urea nitrogen 13 mg/dL Invalid Interpretation Code 8 - 25 mg/dL [facility] CBC Auto Differentialon Basophils 0.11 K/mcL Invalid Interpretation Code 0.00 - 0.30 [facility] Basophils/100 leukocytes 1.2 % Invalid Interpretation Code [facility] Eosinophils 0.49 K/mcL Invalid Interpretation Code 0.00 - 0.50 [facility] Eosinophils/100 leukocytes 5.2 % Invalid Interpretation Code [facility] Erythrocytes (RBC) 0.00 K/mcL Invalid Interpretation Code 0.00 - 0.00 [facility] Erythrocytes (RBC) 4.44 M/mcL Invalid Interpretation Code 4.00 - 5.20 [facility] Hematocrit (HCT) 38.5 % Invalid Interpretation Code 36 - 46 % [facility] Hemoglobin (HGB) 12.5 g/dL Invalid Interpretation Code 12 - 16 g/dL [facility] IG Absolute 0.04 K/mcL Invalid Interpretation Code 0.00 - 0.30 [facility] IG Percent 0.40 % Invalid Interpretation Code [facility] Interpretation and review of laboratory results Normal Invalid Interpretation Code [facility] Lymphocytes 3.38 K/mcL Invalid Interpretation Code 0.90 - 4.00 [facility] Lymphocytes/100 leukocytes 35.8 % Invalid Interpretation Code [facility] MCH 28.2 pg Invalid Interpretation Code 26 - 34 pg [facility] MCHC 32.5 g/dL Invalid Interpretation Code 31 - 37 g/dL [facility] MCV 86.7 fL Invalid Interpretation Code 80 - 100 fL [facility] Monocytes 0.51 K/mcL Invalid Interpretation Code 0.30 - 0.90 [facility] Monocytes/100 leukocytes 5.4 % Invalid Interpretation Code [facility] Neutrophils 4.91 K/mcL Invalid Interpretation Code 1.70 - 7.00 [facility] Neutrophils/100 leukocytes 52.0 % Invalid Interpretation Code [facility] Nucleated erythrocytes/100 erythrocytes 0.0 % Invalid Interpretation Code [facility] Platelet mean volume (PMV) 12.7 fL Invalid Interpretation Code 9 - 15.5 fL [facility] Platelets 205 K/mcL Invalid Interpretation Code 150 - 400 [facility] RDW-CA 14.5 % Invalid Interpretation Code 11.6 - 14.8 % [facility] WBC (Leukocytes) 9.44 K/mcL Invalid Interpretation Code 4.50 - 11.00 [facility] CBC and Differentialon 12-06 Creatinine The following orders were created for panel order CBC and Differential. Procedure Abnormality Status --------- ------ CBC Auto Differential[[id number]] Normal Final result Please view results for these tests on the individual orders. Invalid Interpretation Code [facility] Work Phone: Creatinine The following orders were created for panel order CBC and Differential. Procedure Abnormality Status --------- ------ CBC Auto Differential[[id number]] Normal Final result Please view results for these tests on the individual orders. Invalid Interpretation Code [facility] Hemoglobin A1con 12-06-2017 Glucose 177 mg/dL High 68 - 126 mg/dL [facility] HbA1c 7.8 % High 4.2 - 6 % [facility] Interpretation and review of laboratory results Abnormal Invalid Interpretation Code [facility] Glucose 177 mg/dL High 68 - 126 mg/dL [facility] HbA1c 7.8 % High 4.2 - 6 % [facility] POC Glucoseon 11-15-2017 Glucose 129 mg/dL High 65 - 99 mg/dL [facility] Interpretation and review of laboratory results Abnormal Invalid Interpretation Code [facility] Potassium Levelon 11-15-2017 Interpretation and review of laboratory results Normal Invalid Interpretation Code [facility] Potassium 4.0 mmol/L Invalid Interpretation Code 3.5 - 5.1 mmol/L [facility] Potassium Level On arrival for surgery Invalid Interpretation Code [facility] Basic Metabolic Panelon Anion gap 17 mmol/L Invalid Interpretation Code 10 - 20 mmol/L [facility] Bicarbonate (HCO3) 27 mmol/L Invalid Interpretation Code 21 - 32 mmol/L [facility] BUN/Creatinine Ratio 19.7 mg/mg Invalid Interpretation Code 10.0 - 20.0 [facility] Calcium 10.3 mg/dL High 8.4 - 10.2 mg/dL [facility] Chloride 100 mmol/L Invalid Interpretation Code 98 - 108 mmol/L [facility] Creatinine 0.66 mg/dL Invalid Interpretation Code 0.6 - 1.2 mg/dL [facility] eGFR (non-black) 92 mL/min/{1.73_m2} Invalid Interpretation Code >=60 [facility] eGFR (non-black) The eGFR should be used for monitoring renal function only and not for medication dosing. Invalid Interpretation Code [facility] Glucose mass conc 103 mg/dL High 65 - 99 mg/dL [facility] Interpretation and review of laboratory results Abnormal Invalid Interpretation Code [facility] Potassium molar conc 5.2 mmol/L High 3.5 - 5 .1 mmol/L [facility] Sodium 139 mmol/L Invalid Interpretation Code 135 - 145 mmol/L [facility] Urea nitrogen 13 mg/dL Invalid Interpretation Code 8 - 25 mg/dL [facility] Anion gap 17 mmol/L Invalid Interpretation Code 10 - 20 mmol/L [facility] Bicarbonate (HCO3) 27 mmol/L Invalid Interpretation Code 21 - 32 mmol/L [facility] BUN/Creatinine Ratio 19.7 mg/mg Invalid Interpretation Code 10.0 - 20.0 [facility] Calcium 10.3 mg/dL High 8.4 - 10.2 mg/dL [facility] Chloride 100 mmol/L Invalid Interpretation Code 98 - 108 mmol/L [facility] Creatinine 0.66 mg/dL Invalid Interpretation Code 0.6 - 1.2 mg/dL [facility] eGFR (non-black) The eGFR should be used for monitoring renal function only and not for medication dosing. Invalid Interpretation Code [facility] eGFR (non-black) 92 mL/min/{1.73_m2} Invalid Interpretation Code >=60 [facility] Glucose 103 mg/dL High 65 - 99 mg/dL [facility] Interpretation and review of laboratory results Abnormal Invalid Interpretation Code [facility] Potassium 5.2 mmol/L High 3.5 - 5.1 mmol/L [facility] Sodium 139 mmol/L Invalid Interpretation Code 135 - 145 mmol/L [facility] Urea nitrogen 13 mg/dL Invalid Interpretation Code 8 - 25 mg/dL [facility] ECG 12 Leadon 11-05-2017 Atrial Rate Invalid Interpretation Code [facility] Work Phone: P [place] Invalid Interpretation Code [facility] Work Phone: P-R Interval Invalid Interpretation Code [facility] Work Phone: Q-T Interval Invalid Interpretation Code [facility] Work Phone: Q-T Interval (corrected) Invalid Interpretation Code [facility] Work Phone: QRS Duration Invalid Interpretation Code [facility] Work Phone: QTC Calculation (Bezet) Invalid Interpretation Code [facility] Work Phone: R [place] Invalid Interpretation Code [facility] Work Phone: T [place] Invalid Interpretation Code [facility] Work Phone: Ventricular Rate Invalid Interpretation Code [facility] Work Phone: Hemoglobinon 11-05-2017 Hemoglobin mass conc (Bld) 12.5 g/dL Invalid Interpretation Code 12 - 16 g/dL [facility] Interpretation and review of laboratory results Normal Invalid Interpretation Code [facility] Hemoglobin (HGB) 12.5 g/dL Invalid Interpretation Code 12 - 16 g/dL [facility] Interpretation and review of laboratory results Normal Invalid Interpretation Code [facility] Hemoglobin A1con 09-06-2017 Glucose 200 mg/dL High 68 - 126 mg/dL [facility] HbA1c 8.6 % High 4.2 - 6 % [facility] Interpretation and review of laboratory results Abnormal Invalid Interpretation Code [facility] Hepatitis C Antibodyon 09-06 Hepatitis C Ab Negative Invalid Interpretation Code Negative [facility] Interpretation and review of laboratory results Normal Invalid Interpretation Code [facility] Hemoglobin A1con 06-02-2017 Glucose 183 mg/dL High 68 - 126 mg/dL [facility] HbA1c 8.0 % High 4.2 - 6 % [facility] Interpretation and review of laboratory results Abnormal Invalid Interpretation Code [facility] Vital Signs Date Time Vital Sign Value Performing Clinician Facility 07-26-2024 12:52-0400 Body height 160 cm Johnathan Stubbs MD Work Phone: [facility] 07-26-2024 12:52-0400 Body mass index (BMI) [Ratio] 29.41 kg/m2 Johnathan Stubbs MD Work Phone: [facility] 07-26-2024 12:52-0400 Body weight 75.3 kg Johnathan Stubbs MD Work Phone: [facility] 07-26-2024 12:52-0400 Diastolic blood pressure 52 mm[Hg] Johnathan Stubbs MD Work Phone: [facility] 07-26-2024 12:52-0400 Heart rate 90 /min Johnathan Stubbs MD Work Phone: [facility] 07-26-2024 12:52-0400 SaO2% (BldA) [Mass fraction] 97 % Johnathan Stubbs MD Work Phone: [facility] 07-26-2024 12:52-0400 Systolic blood pressure 110 mm[Hg] Johnathan Stubbs MD Work Phone: [facility] 07-26-2023 13:42-0400 Body height 160 cm Johnathan Stubbs MD Work Phone: [facility] 07-26-2023 13:42-0400 Body mass index (BMI) [Ratio] 33.13 kg/m2 Johnathan Stubbs MD Work Phone: [facility] 07-26-2023 13:42-0400 Body weight 84.82 kg Johnathan Stubbs MD Work Phone: [facility] 07-26-2023 13:42-0400 Diastolic blood pressure 68 mm[Hg] Johnathan Stubbs MD Work Phone: [facility] 07-26-2023 13:42-0400 Heart rate 82 /min Johnathan Stubbs MD Work Phone: [facility] 07-26-2023 13:42-0400 SaO2% (BldA) [Mass fraction] 97 % Johnathan Stubbs MD Work Phone: [facility] 07-26-2023 13:42-0400 Systolic blood pressure 126 mm[Hg] Johnathan Stubbs MD Work Phone: [facility] 11-02-2022 18:02-0500 Body height 160.02 cm [facility] Work Phone: 11-02-2022 18:02-0500 Body mass index (BMI) [Ratio] 34 kg/m2 [facility] Work Phone: 11-02-2022 18:02-0500 Body temperature 97.6 [degF] [facility] Work Phone: 11-02-2022 18:02-0500 Body weight 87.08 kg [facility] Work Phone: 11-02-2022 18:02-0500 Diastolic blood pressure 61 mm[Hg] [facility] Work Phone: 11-02-2022 18:02-0500 Heart rate 92 /min [facility] Work Phone: 11-02-2022 18:02-0500 Respiratory rate 16 /min [facility] Work Phone: 11-02-2022 18:02-0500 SaO2% (BldA) [Mass fraction] 98 % [facility] Work Phone: 11-02-2022 18:02-0500 Systolic blood pressure 142 mm[Hg] [facility] Work Phone: 09-29-2022 08:58-0400 Body mass index (BMI) [Ratio] 29.7 kg/m2 [facility] Work Phone: 09-29-2022 08:58-0400 Body temperature 97.5 [degF] [facility] Work Phone: 09-29-2022 08:58-0400 Diastolic blood pressure 65 mm[Hg] [facility] Work Phone: 09-29-2022 08:58-0400 Heart rate 81 /min [facility] Work Phone: 09-29-2022 08:58-0400 Respiratory rate 18 /min [facility] Work Phone: 09-29-2022 08:58-0400 Systolic blood pressure 125 mm[Hg] [facility] Work Phone: 09-29-2022 00:07-0400 Body weight 81.19 kg [facility] Work Phone: 09-15-2022 10:33-0400 Body mass index (BMI) [Ratio] 29.7 kg/m2 [facility] Work Phone: 09-15-2022 10:33-0400 Body temperature 97.4 [degF] [facility] Work Phone: 09-15-2022 10:33-0400 Diastolic blood pressure 74 mm[Hg] [facility] Work Phone: 09-15-2022 10:33-0400 Heart rate 81 /min [facility] Work Phone: 09-15-2022 10:33-0400 Respiratory rate 18 /min [facility] Work Phone: 09-15-2022 10:33-0400 Systolic blood pressure 124 mm[Hg] [facility] Work Phone: 09-01-2022 09:57-0400 Body height 165.1 cm [facility] Work Phone: 09-01-2022 09:57-0400 Body weight 81.19 kg [facility] Work Phone: 04-29-2021 15:00-0400 Diastolic blood pressure 62 mm[Hg] Adriana Minor MD [facility] Phone: [facility] Work Phone: 04-29-2021 15:00-0400 Heart rate 93 /min Adriana Minor MD Work Phone: [facility] Work Phone: 04-29-2021 15:00-0400 Respiratory rate 17 /min Adriana Minor MD Work Phone: [facility] Work Phone: 04-29-2021 15:00-0400 Systolic blood pressure 144 mm[Hg] [facility] Work Phone: 04-29-2021 14:15-0400 SaO2% (BldA) [Mass fraction] 98 % Adriana Minor MD Work Phone: [facility] Work Phone: 04-29-2021 10:45-0400 Body temperature 97.3 [degF] Adriana Minor MD Work Phone: [facility] Work Phone: 04-29-2021 08:16-0400 Body height 165.1 cm Adriana Minor MD Work Phone: [facility] Work Phone: 04-29-2021 08:16-0400 Body mass index (BMI) [Ratio] 31.95 kg/m2 Adriana Minor MD Work Phone: [facility] Work Phone: 04-29-2021 08:16-0400 Body weight 87.09 kg Adriana Minor MD Work Phone: [facility] Work Phone: 04-09-2021 07:22-0400 Body temperature 96.6 [degF] Johnathan Stubbs MD Work Phone: [facility] Work Phone: 04-09-2021 07:22-0400 Diastolic blood pressure 55 mm[Hg] Johnathan Stubbs MD Work Phone: [facility] Work Phone: 04-09-2021 07:22-0400 Heart rate 81 /min Johnathan Stubbs MD Work Phone: [facility] Work Phone: 04-09-2021 07:22-0400 Respiratory rate 18 /min Johnathan Stubbs MD Work Phone: [facility] Work Phone: 04-09-2021 07:22-0400 SaO2% (BldA) [Mass fraction] 98 % Johnathan Stubbs MD Work Phone: [facility] Work Phone: 04-09-2021 07:22-0400 Systolic blood pressure 119 mm[Hg] Johnathan Stubbs MD Work Phone: [facility] Work Phone: 04-09-2021 02:53-0400 Body mass index (BMI) [Ratio] 32.23 kg/m2 Johnathan Stubbs MD Work Phone: [facility] Work Phone: 04-09-2021 02:53-0400 Body weight 87.86 kg Johnathan Stubbs MD Work Phone: [facility] Work Phone: 04-04-2021 18:50-0400 Body height 165.1 cm Johnathan Stubbs MD Work Phone: [facility] Work Phone: 06-10-2018 09:13-0400 BMI (Body Mass Index) 34.11 kg/m2 [facility] 06-10-2018 09:13-0400 Body Temperature 97.7 [degF] [facility] 06-10-2018 09:13-0400 BP Diastolic 79 mm[Hg] [facility] 06-10-2018 09:13-0400 BP Systolic 111 mm[Hg] [facility] 06-10-2018 09:13-0400 Height 165.1 cm [facility] 06-10-2018 09:13-0400 Pulse (Heart Rate) 76 /min [facility] 06-10-2018 09:13-0400 Pulse Oximetry 93 % [facility] 06-10-2018 09:13-0400 Weight 92.99 kg [facility] 03-11-2018 08:50-0400 BMI (Body Mass Index) 35.78 kg/m2 [facility] 03-11-2018 08:50-0400 Body Temperature 97.81 [degF] [facility] 03-11-2018 08:50-0400 BP Diastolic 80 mm[Hg] [facility] 03-11-2018 08:50-0400 BP Systolic 126 mm[Hg] [facility] 03-11-2018 08:50-0400 Height 165.1 cm [facility] 03-11-2018 08:50-0400 Pulse (Heart Rate) 95 /min Jailene Diez [facility] 03-11-2018 08:50-0400 Pulse Oximetry 94 % Jailene Diez [facility] 03-11-2018 08:50-0400 Weight 97.52 kg Jailene Diez [facility] 12-13-2017 08:18-0500 Body Temperature 97 [degF] Mejia Ku [facility] Work Phone: 12-13-2017 08:18-0500 BP Diastolic 69 mm[Hg] Mejia Ku [facility] Work Phone: 12-13-2017 08:18-0500 BP Systolic 144 mm[Hg] Mejia Ku [facility] Work Phone: 12-13-2017 08:18-0500 Pulse (Heart Rate) 81 /min Mejia Ku [facility] Work Phone: 12-13-2017 08:18-0500 Pulse Oximetry 95 % Mejia Ku [facility] Work Phone: 12-13-2017 08:18-0500 Respiratory Rate 18 /min Mejia Ku [facility] Work Phone: 12-07-2017 10:08-0500 BMI (Body Mass Index) 35.11 kg/m2 Mejia Ku [facility] Work Phone: 12-07-2017 10:08-0500 Height 165.1 cm Mejia Ku [facility] Work Phone: 12-07-2017 10:08-0500 Weight 95.71 kg Mejia Ku [facility] Work Phone: 12-06-2017 08:45-0500 BMI (Body Mass Index) 35.11 kg/m2 Jailene Diez [facility] Work Phone: 12-06-2017 08:45-0500 BP Diastolic 61 mm[Hg] Jailene Diez [facility] Work Phone: 12-06-2017 08:45-0500 BP Systolic 118 mm[Hg] Jailene Diez [facility] Work Phone: 12-06-2017 08:45-0500 Height 165.1 cm Jailene Diez [facility] Work Phone: 12-06-2017 08:45-0500 Pulse (Heart Rate) 82 /min [facility] Work Phone: 12-06-2017 08:45-0500 Pulse Oximetry 96 % [facility] Work Phone: 12-06-2017 08:45-0500 Weight 95.71 kg [facility] Work Phone: 11-15-2017 12:14-0500 Body Temperature 97.59 [degF] [facility] Work Phone: 11-15-2017 12:14-0500 BP Diastolic 71 mm[Hg] [facility] Work Phone: 11-15-2017 12:14-0500 BP Systolic 145 mm[Hg] Mejia Ku [facility] Work Phone: 11-15-2017 12:14-0500 Pulse Oximetry 97 % [facility] Work Phone: 11-15-2017 12:14-0500 Respiratory Rate 14 /min Mejia Ku [facility] Work Phone: 11-15-2017 11:16-0500 Pulse (Heart Rate) 78 /min Mejia Ku [facility] Work Phone: 11-09-2017 10:08-0500 BMI (Body Mass Index) 35.28 kg/m2 Mejia Ku [facility] Work Phone: 11-09-2017 10:08-0500 Height 165.1 cm Mejia Ku [facility] Work Phone: 11-09-2017 10:08-0500 Weight 96.16 kg [facility] Work Phone: 11-05-2017 10:00-0500 BMI (Body Mass Index) 35.28 kg/m2 [facility] Work Phone: 11-05-2017 10:00-0500 Body Temperature 98.29 [degF] Jailene Diez [facility] Work Phone: 11-05-2017 10:00-0500 BP Diastolic 67 mm[Hg] [facility] Work Phone: 11-05-2017 10:00-0500 BP Systolic 113 mm[Hg] Jailene Diez [facility] Work Phone: 11-05-2017 10:00-0500 Height 165.1 cm Jailene Diez [facility] Work Phone: 11-05-2017 10:00-0500 Pulse (Heart Rate) 91 /min Jailene Diez [facility] Work Phone: 11-05-2017 10:00-0500 Pulse Oximetry 98 % Jailene Diez [facility] Work Phone: 11-05-2017 10:00-0500 Weight 96.16 kg Jailene Diez [facility] Work Phone: 07-01-2017 15:18-0400 BMI (Body Mass Index) 36.78 kg/m2 Jailene Diez [facility] Work Phone: 07-01-2017 15:18-0400 Body Temperature 98.2 [degF] Jailene Diez [facility] Work Phone: 07-01-2017 15:18-0400 BP Diastolic 82 mm[Hg] Jailene Diez [facility] Work Phone: 07-01-2017 15:18-0400 BP Systolic 140 mm[Hg] Jailene Diez [facility] Work Phone: 07-01-2017 15:18-0400 Height 165.1 cm Jailene Diez [facility] Work Phone: 07-01-2017 15:18-0400 Pulse (Heart Rate) 93 /min Jailene Diez [facility] Work Phone: 07-01-2017 15:18-0400 Pulse Oximetry 95 % Jailene Diez [facility] Work Phone: 07-01-2017 15:18-0400 Weight 100.25 kg Jailene Diez [facility] Work Phone: Encounters Encounter Date Encounter Type Care Provider Facility Start: 07-04-2025 ambulatory Gallito Jacobson Facilit y:[facility] Start: 06-29-2025 End: 07-02-2025 [facility] Start: 06-27-2025 End: 06-27-2025 Refill Thalia Aiken APRN - [employer] Work Phone: [facility] Comment on above: Chronic systolic con gestive heart failure (HCC) Start: 06-24-2025 End: 06-24-2025 Telephone encounter [facility] Start: 05-15-2025 End: 05-15-[address] Gallito Jacobson MD Work Phone: [facility] Work Phone: Start: 05-15-2025 End: 05-15-[address] Gallito Jacobson MD -Radiology [place] Work Phone: Start: 05-15-2025 End: 05-15-2025 ambulatory Gallito Jacobson Facility:[facility] Start: 03-08-2025 End: 03-08-2025 Refill Johnathan Stubbs MD Work Phone: [facility] Comment on above: Coronary artery dise ase involving oneida coronary artery of oneida heart without angina pectoris Start: 12-07-2024 End: 12-08-2024 Refill Johnathan Stubbs MD Work Phone: [facility] Comment on above: Coronary artery dise ase involving oneida coronary artery of oneida heart without angina pectoris Start: 09-19-2024 End: 09-19-2024 Refill Johnathan Stubbs MD Work Phone: [facility] Comment on above: Type 2 diabetes kirstie itus with hyperosmolarity without coma, without long-term current use of insulin ([facility]/HCC) (HCC) Start: 08-20-2024 End: 08-21-2024 Refill Johnathan Stubbs MD Work Phone: [facility] - [facility] Comment on above: Chronic systolic con gestive heart failure (HCC) Start: 07-26-2024 End: 07-26-2024 Office outpatient visit 25 minutes Johnathan Stubbs MD Work Phone: [facility] Comment on above: Primary hypertension ; Type 2 diabetes mellitus with hyperosmolarity without coma, without long-term current use of insulin (CMS/HCC) ([facility]); 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; Ischemic cardiomyopathy; NSTEMI (non-ST elevated myocardial infarction) ([facility]) Start: 07-26-2024 End: 07-26-2024 ambulatory JOHNATHAN [facility] Start: 07-24-2024 End: 07-24-2024 Refill Johnathan Stubbs MD Work Phone: [facility] Start: 07-19-2024 End: 07-19-2024 ambulatory JOHNATHAN [employer] Facility:[facility] Start: 07-11-2024 End: 07-11-2024 Telephone encounter John Esteban [facility] Cardiology Start: 07-05-2024 End: 07-05-2024 ambulatory Cherie Deluca Facility:[facility] Start: 04-05-2024 Refill Johnathan isaacs MD Work Phone: [facility] Cardiology Comment on above: Coronary artery dise ase involving oneida coronary artery of oneida heart without angina pectoris Start: 01-08-2024 End: 01-08-2024 ambulatory CHERIE DELUCA Facility:[facility] Start: 12-20-2023 End: 12-20-[address] Cherie Deluca Work Phone: [facility] Work Phone: Start: 12-20-2023 End: 12-20-[address] Cherie Deluca Work Phone: [facility] Start: 10-18-2023 Refill Johnathan isaacs MD Work Phone: [facility] Cardiology Comment on above: Coronary artery dise ase involving oneida coronary artery of oneida heart without angina pectoris Start: 09-23-2023 Refill Danielle [facility] Start: 09-01-2023 Non-patient / Non-visit Dr. Trudy Deluca Work Phone: [facility] Start: 09-01-2023 End: 09-01-[address] Cherie Deluca Work Phone: [facility] Work Phone: Start: 08-03-2023 End: 08-03-2023 ambulatory CHERIE DELUCA Facility:[facility] Start: 07-26-2023 End: 07-26-2023 Office outpatient visit 25 minutes Johnathan Stubbs MD Work Phone: [facility] Card[facility] Comment on above: Primary hypertension (Primary Dx); 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; NSTEMI (non-ST elevated myocardial infarction) (CMS/HCC) (HCC); Ischemic cardiomyopathy Start: 07-08-2023 Refill Johnathan isaacs MD Work Phone: [facility] Comment on above: Coronary artery dise ase involving oneida coronary artery of oneida heart without angina pectoris Start: 04-08-2023 Refill Johnathan isaacs MD Work Phone: [facility] Comment on above: Chronic systolic con gestive heart failure (CMS/HCC) (HCC) Start: 01-06-2023 Refill Johnathan isaacs MD Work Phone: [facility] Comment on above: Coronary artery dise ase involving oneida coronary artery of oneida heart without angina pectoris Start: 11-02-2022 End: 11-02-2022 Emergency department patient visit [facility]Emergency Department Start: 09-29-2022 End: 10-28-2022 ambulatory [facility] Work Phone: Start: 09-29-2022 End: 10-28-2022 [facility] Start: 09-21-2022 Transcribe Orders Johnathan Stubbs MD Work Phone: [facility] Central Scheduling Comment on above: Atherosclerotic hear t disease of oneida coronary artery without angina pectoris (Primary Dx) Start: 09-16-2022 End: 09-16-2022 ambulatory [facility] Work Phone: Start: 09-16-2022 End: 09-16-2022 Patient encounter procedure [facility]-Laboratory, Fili Laughlin Start: 09-15-2022 End: 09-28-2022 ambulatory [facility] Work Phone: Start: 09-15-2022 End: 09-28-2022 [facility] Start: 09-15-2022 Registered Recurring [facility] Start: 07-09-2022 Documentation procedure Mammog vero Coordinator [facility] Start: 07-09-2022 Letter encounter Mammography Coordinator [facility] Department Start: 07-09-2022 End: 07-09-2022 Subsequent hospital visit by physician Screen Mammo [facility] M[facility] Comment on above: Screening mammogram, encounter for [Z12.31] Start: 04-29-2021 End: 04-29-2021 Subsequent hospital visit by physician Adriana Minor MD Work Phone: [facility] Button Reclaimer Comment on above: Coronary artery dise ase involving oneida coronary artery of oneida heart without angina pectoris (Primary Dx) Start: 04-04-2021 End: 04-09-2021 Evaluation and management of inpatient Johnathan Stubbs MD Work Phone: [facility] 1C Capacity Management Comment on above: Post PTCA (Primary D x); NSTEMI (non-ST elevated myocardial infarction) ([facility]) Start: 01-09-2021 End: 01-09-2021 Orders Only Adrianna Cheung Work Phone: [facility] Start: 06-10-2018 End: 06-10-2018 Patient encounter JAILENE DIEZ [facility] Start: 06-10-2018 End: 06-10-2018 Office outpatient visit 15 minutes Jailene Diez Work Phone: [facility] Start: 06-09-2018 End: 06-09-2018 Patient encounter JAILENE BOB DIEZ [facility] Start: 03-11-2018 End: 03-11-2018 Patient encounter JAILENE DIEZ [facility] Start: 03-11-2018 Office/outpatient vi sit, est, level 3 Jailene Diez Work Phone: [facility] Start: 03-09-2018 End: 03-09-2018 Patient encounter Jailene Diez Work Phone: [facility] Start: 12-28-2017 End: 12-28-2017 Patient encounter MEJIA KU [facility] Start: 12-28-2017 Postop follow-up visit Mejia Ku Work Phone: [facility] Ophthalmology Start: 12-14-2017 End: 12-14-2017 Patient encounter MEJIA KU [facility] Start: 12-14-2017 Postop follow-up visit Mejia Ku Work Phone: [facility] Ophthal[facility] Start: 12-13-2017 End: 12-13-2017 Ambulatory J Carlie [facility] Ophthalmology Start: 12-06-2017 End: 12-06-2017 Patient encounter Jailene Diez Work Phone: [facility] Start: 12-06-2017 Office/outpatient vi sit, est, level 4 Jailene Diez Work Phone: [facility] Start: 12-01-2017 End: 12-01-2017 Patient encounter MEJIA KU [facility] Start: 12-01-2017 Postop follow-up visit Mejia Ku Work Phone: [facility] Ophthalmology Start: 11-16-2017 Patient encounter MEJIA KU [facility] Start: 11-16-2017 Postop follow-up visit Mejia Ku Work Phone: [facility]hthal[facility] Start: 11-15-2017 End: 11-15-2017 Ambulatory J Carlie Ku [facility] Ophthalmology Start: 11-09-2017 End: 11-09-2017 Patient encounter MEJIA KU [facility] Start: 11-09-2017 Patient encounter Mejia Ku Work Phone: [facility] Ophthalmology Start: 11-05-2017 End: 11-05-2017 Patient encounter Jailene Diez Work Phone: [facility] Start: 11-05-2017 Office outpatient vi sit 25 minutes Jailene Diez Work Phone: [facility] Start: 10-06-2017 End: 10-06-2017 Patient encounter MEJIA KU [facility] Start: 10-06-2017 Office outpatient vi sit 25 minutes Mejia Ku Work Phone: [facility] Ophthalmology Start: 09-08-2017 Patient encounter JAILENE DIEZ [facility] Start: 09-06-2017 End: 09-10-2017 Patient encounter JAILENE DIEZ [facility] Start: 09-06-2017 End: 09-06-2017 Patient encounter Jailene Diez Work Phone: [facility] Start: 07-06-2017 End: 07-06-2017 Patient encounter MEJIA KU [facility] Start: 07-06-2017 Office/outpatient vi sit, est, level 2 Mejia Ku Work Phone: [facility] Ophthalmology Start: 07-01-2017 Patient encounter JAILENE Hines [facility] Start: 07-01-2017 Office/outpatient vi sit, est, level 3 Jailene Diez Work Phone: [facility] Start: 06-02-2017 End: 06-02-2017 Patient encounter Jailene Diez Work Phone: [facility] Start: 12-11-2016 End: 12-12-2016 Ambulatory PROVIDER NOT IN SYSTEM [facility] Procedures Date Procedure Procedure Detail Performing Clinician Start: 05-15-2025 X-ray of chest, PA and lateral views Dr. Gallito Jacobson MD Work Phone: Start: 07-26-2024 Ecg routine ecg w/least 12 lds w/i&r Johnathan Stubbs MD Work Phone: Start: 11-02-2022 Plain X-ray of shoulder Start: 11-02-2022 History of placement of stent for coronary artery disease History of coronary artery stent placement Johnathan Stubbs MD Work Phone: Start: 11-02-2022 History of total hysterectomy History of total hysterectomy Johnathan Stubbs MD Work Phone: Start: 07-09-2022 MILY SCREENING W ALBERT Deluca Work Phone: Start: 07-09-2022 Mammography Screen Wstr Start: 04-29-2021 Ecg routine ecg w/least 12 lds w/i&r Adriana Minor MD Work Phone: Start: 04-29-2021 CARDIAC CATH NURSING LOG 3m Scanning Start: 04-29-2021 Gluc bld gluc mntr dev cleared fda spec home use Adriana Minor MD Work Phone: Start: 04-09-2021 Ecg routine ecg w/least 12 lds w/i&r Emmie Spring MD Work Phone: Start: 04-09-2021 Gluc bld gluc mntr dev cleared fda spec home use Johnathan Stubbs MD Work Phone: Start: 04-09-2021 End: 04-09-2021 Assay of magnesium Emmie Spring MD Work Phone: Start: 04-08-2021 Gluc bld gluc mntr dev cleared fda spec home use Johnathan Stubbs MD Work Phone: Start: 04-08-2021 End: 04-08-2021 Gluc bld gluc mntr dev cleared fda spec home use Johnathan Stubbs MD Work Phone: Start: 04-08-2021 Ecg routine ecg w/least 12 lds w/i&r 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 Greenwood 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 Work Phone: Start: 04-08-2021 CARDIAC CATH NURSING LOG 3m Scanning Start: 04-08-2021 Coagulation time activated Johnathan Stubbs MD Work Phone: Start: 04-08-2021 Cardiac catheterization Adriana Minor MD Work Phone: Start: 04-08-2021 Gluc bld gluc mntr dev cleared fda spec home use Johnathan Stubbs MD Work Phone: Start: 04-08-2021 Ecg routine ecg w/least 12 lds w/i&r Emmie Spring MD Work Phone: Start: 04-08-2021 Basic metabolic panel calcium total Emmie Spring MD Work Phone: Start: 04-07-2021 Gluc bld gluc mntr dev cleared fda spec home use Johnathan Stubbs MD Work Phone: Start: 04-07-2021 Gluc bld gluc mntr dev cleared fda spec home use Johnathan Stubbs MD Work Phone: Start: 04-07-2021 Cardiac mri w/wo contrast & further seq Emmie Spring MD Work Phone: Start: 04-07-2021 Gluc bld gluc mntr dev cleared fda spec home use Johnathan Stubbs MD Work Phone: Start: 04-07-2021 Gluc bld gluc mntr dev cleared fda spec home use Johnathan Stubbs MD Work Phone: Start: 04-07-2021 Ecg routine ecg w/least 12 lds w/i&r Emmie Spring MD Work Phone: Start: 04-07-2021 Basic metabolic panel calcium total Emmie Spring MD Work Phone: Start: 04-06-2021 Gluc bld gluc mntr dev cleared fda spec home use Johnathan Stubbs MD Work Phone: Start: 04-06-2021 Gluc bld gluc mntr dev cleared fda spec home use Johnathan Stubbs MD Work Phone: Start: 04-06-2021 Thromboplastin time partial plasma/whole blood Emmie Spring MD Work Phone: Start: 04-06-2021 Echo tthrc r-t 2d w/wom-mode compl spec&colr d Emmie Spring MD Work Phone: Start: 04-06-2021 Gluc bld gluc mntr dev cleared fda spec home use Johnathan Stubbs MD Work Phone: Start: 04-06-2021 Basic metabolic panel calcium total Emmie Spring MD Work Phone: Start: 04-06-2021 Ecg routine ecg w/least 12 lds w/i&r Emmie Spring MD Work Phone: Start: 04-05-2021 Thromboplastin time partial plasma/whole blood Emmie Spring MD Work Phone: Start: 04-05-2021 Gluc bld gluc mntr dev cleared fda spec home use Johnathan Stubbs MD Work Phone: Start: 04-05-2021 End: 04-05-2021 Gluc bld gluc mntr dev cleared fda spec home use Johnathan Stubbs MD Work Phone: Start: 04-05-2021 Radiologic exam abdomen 1 view Emmie Spring MD Work Phone: Start: 04-05-2021 Radiologic exam chest single view Emmie Spring MD Work Phone: Start: 04-05-2021 Gluc bld gluc mntr dev cleared fda spec home use Johnathan Stubbs MD Work Phone: Start: 04-05-2021 Thromboplastin time partial plasma/whole blood Emmie Spring MD Work Phone: Start: 04-05-2021 Ecg routine ecg w/least 12 lds w/i&r Emmie Spring MD Work Phone: Start: 04-05-2021 Basic metabolic panel calcium total Emmie Spring MD Work Phone: Start: 04-05-2021 ADD ON LAB TEST Jerad Sylvester MD Work Phone: Start: 04-04-2021 ADD ON LAB TEST Jerad Sylvester MD Work Phone: Start: 04-04-2021 Ecg routine ecg w/least 12 lds w/i&r Marcus Nuñez MD Work Phone: Start: 04-04-2021 End: 04-05-2021 CK WITH REFLEX CK-MB Marcus Nuñez MD Work Phone: Start: 04-04-2021 End: 04-05-2021 Creatine kinase mb fraction only Marcus Nuñez MD Work Phone: Start: 04-04-2021 Lipid panel Mracus Nuñez MD Work Phone: Start: 04-04-2021 Radiologic exam chest single view Marcus Nuñez MD Work Phone: Start: 04-04-2021 Lipid 1996 panel - Serum or Plasma Johnathan Stubbs MD Work Phone: Start: 03-09-2018 Lipid 1996 panel - Serum or Plasma Adrianna Cheung Start: 03-09-2018 Microalbumin [Mass/volume] in Urine by Test strip Adrianna Cheung Start: 11-15-2017 End: 11-15-2017 RIGHT EYE PHACOEMULSIFICATION CATARACT INTRAOCULAR LENS CLEAR CORNEA Mejia Ku Work Phone: Start: 11-09-2017 End: 11-09-2017 Oph bmtry us echograpy a-scan io lens pwr john Mejia Ku Work Phone: Start: 10-06-2017 End: 10-06-2017 Gonioscopy separate procedure Mejia Ku Work Phone: Start: 10-06-2017 Ophthalmic examination and evaluation Adrianna Cheung Start: 09-08-2017 3 comp foot exam completed Adrianna kevin Start: 12-11-2016 Mammography Adrianna Cheung Start: 11-02-2016 Colonoscopy Adrianna Cheung History of cataract extraction History of cataract surgery History of placement of stent for coronary artery disease History of heart artery stent History of total hysterectomy Hi story of total hysterectomy Plan of Treatment Date Care Activity Detail Author Start: 02-10-2029 DTaP/Tdap/Td vaccine (2 - Td) DTaP/Tdap/Td vaccine (2 - Td) [facility] Work Phone: Start: 02-10-2029 DTaP/Tdap/Td Vaccines (2 - Td or Tdap) DTaP/Tdap/Td Vaccines (2 - Td or Tdap) [facility] [employer] Start: 07-30-2025 Influenza vaccination [facility] [employer] Start: 07-25-2025 End: 07-25-2025 Patient encounter procedure [facility] Start: 07-19-2025 Creatinine measurement Creatinine Level [facility] [employer] Start: 07-19-2025 Diabetes: Estimated Glomerular Filtration Rate for Kidney Health Diabetes: Estimated Glomerular Filtration Rate for Kidney Health [facility] [employer] Start: 07-19-2025 Potassium measurement Potassium Level [facility] [employer] Start: 07-09-2025 DIABETES SCREEN DIABETES SCREEN [facility] Start: 11-29-2024 Medicare Advantage Annual Wellness Visit Medicare Advantage Annual Wellness Visit [facility] Start: 2024 RSV Immunization for Adults (1 - 1-dose 75+ series) RSV Immunization for Adults (1 - 1-dose 75+ series) [facility] [employer] Start: 07-30-2024 COVID-19 Vaccine ( season) COVID-19 Vaccine ( season) [facility] Start: 07-30-2024 COVID-19 Vaccine ( season) COVID-19 Vaccine ( season) [facility] Start: 07-30-2024 Influenza vaccination [facility] [employer] Start: 07-26-2024 End: 07-26-2024 Patient encounter procedure [facility] Start: 11-29-2023 Medicare Advantage Annual Wellness Visit Medicare Advantage Annual Wellness Visit [facility] Start: 10-27-2023 Echocardiography Echocardiogram [facility] [employer] Start: 08-02-2023 End: 07-26-2024 Basic metabolic 1998 panel - Serum or Plasma Basic metabolic panel Lab Routine Primary hypertension 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 NSTEMI (non-ST elevated myocardial infarction) (CMS/HCC) (HCC) Ischemic cardiomyopathy Expected: 08/02/2023 (Approximate), Expires: 07/26/2024 [facility] Work Phone: Comment on above: Expected: 08/02/2023 (Approximate), Expi res: 07/26/2024 Start: 07-30-2023 COVID-19 Vaccine () COVID-19 Vaccine () [facility] [employer] Start: 07-30-2023 Influenza vaccination [facility] Start: 07-26-2023 End: 07-26-2023 Patient encounter procedure 07/26/2023 1:45 PM EDT Office Visit [facility] [address] [place] [phone] Johnathan Stubbs MD [address] [id number] [facility] Start: 07-09-2023 Mammography MAMMOGRAM [facility] Start: 07-30-2022 Influenza vaccination [facility] Start: 05-08-2022 Creatinine measurement Creatinine Level [facility] [employer] Start: 05-08-2022 Potassium measurement Potassium Level [facility] [employer] Start: 04-18-2022 Creatinine measurement [facility] Work Phone: Start: 04-18-2022 Potassium monitoring Potassium monitoring [employer] Work Phone: Start: 04-09-2022 Creatinine measurement Creatinine monitoring [facility] Work Phone: Start: 04-09-2022 Diabetes: Estimated Glomerular Filtration Rate for Kidney Health Diabetes: Estimated Glomerular Filtration Rate for Kidney Health [facility] [employer] Start: 04-09-2022 Potassium monitoring Potassium monitoring [facility] Work Phone: Start: 04-04-2022 Hemoglobin [facility]c [facility] Start: 04-04-2022 Lipid panel [facility] Start: 11-29-2021 ADVANCE DIRECTIVE DISCUSSION ADVANCE DIRECTIVE DISCUSSION [facility] Start: 07-30-2021 Influenza vaccination Flu vaccine (Season Ended) [facility] Work Phone: Start: 07-05-2021 Hemoglobin A1c measurement Diabetes: Hemoglobin A1C [facility] Start: 06-09-2021 End: 06-09-2021 Patient encounter procedure 06/09/2021 Office Visit Cardiology Johnathan Stubbs MD [address] [place] [address] [phone] [facility] Start: 05-08-2021 End: 05-08-2021 Evaluation and management of inpatient 05/08/2021 Office Visit Cardiology Johnathan Stubbs MD [address] [place] [address] [phone] [facility] Start: 04-15-2021 End: 04-15-2021 Evaluation and management of inpatient 04/15/2021 Office Visit Cardiology Johnathan Stubbs MD [address] [place] [address] [phone] [facility] Start: 04-07-2021 Annual Wellness Visit (AWV) Annual Wellness Visit (AWV) [facility] Work Phone: Start: 07-30-2020 Influenza vaccination given Sequential Influenza Vaccine (#1) [facility] Start: 06-10-2019 Fall risk assessment Steadi Fall Risk Assessment [facility] Start: 03-09-2019 Fasting lipid profile Lipid Panel [facility] Start: 03-09-2019 Lipid panel LIPID PANEL [facility] Start: 03-09-2019 Urine, microalbumin URINE MICROALBUMIN [facility] Start: 12-10-2018 Hemoglobin A1c/Hemoglobin.total mass fraction (Bld) [facility] Start: 10-06-2018 Ophthalmic examination and evaluation OPHTHALMOLOGY EXAM [facility] Work Phone: Start: 09-12-2018 End: 09-12-2018 Ambulatory 09/12/2018 Office Visit Primary Care Jailene Diez MD [address] [place] [address] [phone] [facility] Start: 09-08-2018 Diabetic foot examination (regime/therapy) FOOT EXAM [facility] Work Phone: Start: 09-08-2018 HbA1c HEMOGLOBIN A1C [facility] Start: 08-01-2018 Influenza vaccination [facility] Start: 07-20-2018 End: 07-20-2018 Ambulatory 07/20/2018 Office Visit Ophthalmology Mejia Ku MD [address] [place] [address] [phone] [facility] Start: 07-06-2018 Ambulatory 07/06/2018 Office Visit Ophthalmology Mejia Ku MD [address] [place] [address] [phone] [facility] Start: 06-10-2018 End: 03-12-2019 HbA1c Hemoglobin A1c Routine Type 2 diabetes mellitus without complication, with long-term current use of insulin (HCC) Expected: 06/10/2018, Expires: 03/12/2019 [facility] Start: 06-10-2018 End: 06-10-2018 Ambulatory 06/10/2018 Office Visit Primary Care Jailene Diez MD [address] [place] [address] [phone] [facility] Start: 06-05-2018 HbA1c HEMOGLOBIN A1C [facility] Work Phone: Start: 06-03-2018 Fall risk assessment Steadi Fall Risk Assessment [facility] Work Phone: Start: 06-03-2018 Steadi Fall Risk Assessment Steadi Fall Risk Assessment [facility] Work Phone: Start: 03-15-2018 Lipid panel LIPID PANEL [facility] Work Phone: Start: 03-15-2018 URINE MICROALBUMIN URINE MICROALBUMIN [facility] Work Phone: Start: 03-15-2018 Urine, microalbumin URINE MICROALBUMIN [facility] Work Phone: Start: 03-11-2018 Ambulatory 03/11/2018 Office Visit Primary Care Jailene Diez MD [address] [place] [address] [facility] Start: 03-07-2018 HbA1c HEMOGLOBIN A1C [facility] Work Phone: Start: 12-28-2017 Ambulatory 12/28/2017 Office Visit Ophthalmology Mejia Ku MD [address] [place] [address] [phone] [facility] Start: 12-14-2017 Ambulatory 12/14/2017 Office Visit Ophthalmology Mejia Ku MD [address] [place] [address] [phone] [facility] Start: 12-13-2017 End: 12-13-2017 Ambulatory [facility] Start: 12-11-2017 Mammography MAMMOGRAM [facility] Work Phone: Start: 12-11-2017 Screening for malignant neoplasm of breast Mammogram [facility] Start: 12-11-2017 Screening mammography MAMMOGRAM [facility] Work Phone: Start: 12-06-2017 Ambulatory 12/06/2017 Office Visit Primary Care Jailene Diez MD [address] [place] [address] [phone] [facility] Start: 12-03-2017 HEMOGLOBIN A1C HEMOGLOBIN A1C [facility] Work Phone: Start: 12-01-2017 Ambulatory 12/01/2017 Office Visit Ophthalmology Mejia Ku MD [address] [place] [address] [phone] [facility] Start: 11-16-2017 Ambulatory 11/16/2017 Office Visit Ophthalmology Mejia Ku MD [address] [place] [address] [phone] [facility] Start: 11-15-2017 Ambulatory [facility] Start: 11-09-2017 Ambulatory 11/09/2017 Office Visit Ophthalmology Mejia Ku MD [address] [place] [address] [phone] [facility] Start: 11-08-2017 Ambulatory 11/08/2017 Office Visit Ophthalmology Mejia Ku MD [address] [place] [address] [phone] [facility] Start: 11-05-2017 Ambulatory 11/05/2017 Office Visit Primary Care Jailene Diez MD [address] [place] [address] [phone] [facility] Start: 11-02-2017 Colonoscopy COLONOSCOPY [facility] Work Phone: Start: 11-02-2017 History and physical examination, annual for health maintenance Wellness Visit [facility] Start: 11-02-2017 Pneumococcal vaccination PNEUMOCOCCAL VACCINE AGE 65+ (2 of 2 - PPSV23) [facility] Work Phone: Start: 11-02-2017 PNEUMOCOCCAL VACCINE AGE 65+ (2 of 2 - PPSV23) PNEUMOCOCCAL VACCINE AGE 65+ (2 of 2 - PPSV23) [facility] Work Phone: Start: 11-02-2017 Pneumococcal Vaccine: 65+ Years (2 - PPSV23 if available, else PCV20) Pneumococcal Vaccine: 65+ Years (2 - PPSV23 if available, else PCV20) [facility] Start: 11-02-2017 Screening colonoscopy COLONOSCOPY [facility] Work Phone: Start: 11-02-2017 Screening for malignant neoplasm of colon [facility] Start: 10-06-2017 Ambulatory 10/06/2017 Office Visit Ophthalmology Mejia Ku MD [address] [place] [address] [phone] [facility] Start: 09-29-2017 Ophthalmic examination and evaluation OPHTHALMOLOGY EXAM [facility] Work Phone: Start: 09-29-2017 OPHTHALMOLOGY EXAM OPHTHALMOLOGY EXAM [facility] Work Phone: Start: 09-08-2017 Ambulatory 09/08/2017 Office Visit Primary Care Jailene Diez MD [address] [place] [address] [phone] [facility] Start: 08-21-2017 Glaucoma screening Diabetes: Retinopathy Screening [facility] Start: 08-19-2017 FOOT EXAM FOOT EXAM [facility] Work Phone: Start: 07-30-2017 Influenza vaccination SEQUENTIAL INFLUENZA VACCINE (#1) [facility] Work Phone: Start: 07-30-2017 SEQUENTIAL INFLUENZA VACCINE (#1) SEQUENTIAL INFLUENZA VACCINE (#1) [facility] Work Phone: Start: 07-06-2017 Ambulatory 07/06/2017 Office Visit Ophthalmology Mejia Ku MD [address] [place] [address] [phone] [facility] Start: 12-28-2016 Pneumococcal Vaccine: 50+ Years (2 of 2 - PPSV23) Pneumococcal Vaccine: 50+ Years (2 of 2 - PPSV23) [facility] Start: 12-28-2016 Pneumococcal Vaccine: 65+ Years (2 - PPSV23 if available, else PCV20) Pneumococcal Vaccine: 65+ Years (2 - PPSV23 if available, else PCV20) [facility] Start: 12-28-2016 Pneumococcal Vaccine: 65+ Years (2 - PPSV23 or PCV20) Pneumococcal Vaccine: 65+ Years (2 - PPSV23 or PCV20) [facility] Start: 12-28-2016 Pneumococcal Vaccine: 65+ Years (2 of 2 - PPSV23 or PCV20) Pneumococcal Vaccine: 65+ Years (2 of 2 - PPSV23 or PCV20) [facility] Start: 08-21-2016 Glaucoma screening Diabetes: Retinopathy Screening [facility] Start: 2014 BONE DENSITY BONE DENSITY [facility] Start: 2014 Pneumococcal 65+ years Vaccine (1 of 1 - PPSV23) Pneumococcal 65+ years Vaccine (1 of 1 - PPSV23) [facility] Work Phone: Start: 2014 Pneumococcal 65+ years Vaccine (2 of 2 - PPSV23) Pneumococcal 65+ years Vaccine (2 of 2 - PPSV23) [facility] Work Phone: Start: 2014 PNEUMOCOCCAL: 65+ (1 - PCV) PNEUMOCOCCAL: 65+ (1 - PCV) [facility] Start: 2009 Hepatitis B Vaccines (1 of 3 - Risk 3-dose series) Hepatitis B Vaccines (1 of 3 - Risk 3-dose series) [facility] Start: 2009 RSV Immunization aged 60 or older (1 - 1-dose 60+ series) RSV Immunization aged 60 or older (1 - 1-dose 60+ series) [facility] Start: 2009 RSV Immunization for Adults (1 - Risk 60-74 years 1-dose series) RSV Immunization for Adults (1 - Risk 60-74 years 1-dose series) [facility] Start: 2009 Zoster vacc, sc ZOSTER VACCINE [facility] Work Phone: Start: 2004 Screening for osteoporosis DEXA (modify frequency per FRAX score) [facility] Work Phone: Start: 1999 Administration of herpes zoster vaccine Zoster Vaccines (1 of 2) [facility] Start: 1999 Screening for malignant neoplasm of breast Breast cancer screen [facility] Work Phone: Start: 1999 Screening for malignant neoplasm of colon [facility] Start: 1999 Shingles Vaccine (1 of 2) Shingles Vaccine (1 of 2) [facility] Work Phone: Start: 1999 SHINGRIX VACCINE (1 of 2) SHINGRIX VACCINE (1 of 2) [facility] Start: 1999 Zoster Vaccines (1 of 2) Zoster Vaccines (1 of 2) [facility] Start: 1994 COLOGUARD (FIT-DNA) COLOGUARD (FIT-DNA) [facility] Start: 1994 Colonoscopy COLONOSCOPY [facility] Start: 1994 COLORECTAL CANCER SCREENING COLORECTAL CANCER SCREENING [facility] Start: [address] COLONOGRAPHY [facility] Start: 1994 FECAL OCCULT BLOOD FECAL OCCULT BLOOD [facility] Start: 1994 LIPID SCREEN LIPID SCREEN [facility] Start: 1994 SIGMOIDOSCOPY SIGMOIDOSCOPY [facility] Start: 1989 Screening for malignant neoplasm of breast Mammogram [facility] Start: 1968 Urine microalbumin profile DTAP,TDAP,TD (1 - Tdap) [facility] Start: 1968 Urine screening for protein Diabetes: Urine Protein Screening [facility] Start: 1967 Diabetes: Urine Albumin-Creatinine Ratio for Kidney Health Diabetes: Urine Albumin-Creatinine Ratio for Kidney Health [facility] Start: 1967 Diabetic microalbuminuria test Diabetic microalbuminuria test [facility] Work Phone: Start: 1967 HEPATITIS C SCREENING HEPATITIS C SCREENING [facility] Start: 1967 Hepatitis C screening Hepatitis C Screening [facility] Start: 1965 COVID-19 Vaccine (1 of 2) COVID-19 Vaccine (1 of 2) [facility] Start: 1961 Adolescent depression screening assessment [facility] Start: 1961 COVID-19 Vaccine (1) COVID-19 Vaccine (1) [facility] Work Phone: Start: 1959 Diabetic foot examination [facility] Start: 1959 Diabetic retinal exam Diabetic retinal exam [facility] Work Phone: Start: 1959 Preventive dental service Diabetes: Dental Exam [facility] Start: 05-22-1950 COVID-19 VACCINE (#1) COVID-19 VACCINE (#1) [facility] Start: 1949 Fall risk assessment Falls Risk Assessment [facility] Start: 1949 Hepatitis B Vaccines (1 of 3 - 3-dose series) Hepatitis B Vaccines (1 of 3 - 3-dose series) [facility] Start: 1949 HEPATITIS C SCREENING HEPATITIS C SCREENING [facility] Work Phone: Start: 1949 Hepatitis C screening Hepatitis C screen [facility] Work Phone: Start: 1949 Medicare Advantage Annual Wellness Visit (AWV) Medicare Advantage Annual Wellness Visit (AWV) [facility] Start: 1949 Screening for malignant neoplasm of colon [facility] Start: 1949 Screening for osteoporosis Bone Density Scan [facility] Start: 1949 TETANUS EVERY 10 YR TETANUS EVERY 10 YR [facility] Work Phone: Start: 1949 Tetanus vaccination [facility] [employer] Phone: aPTT in Blood by Coagulation assay APTT Lab Timed Now Then Every 6hr until discontinued starting 04/04/2021, 8 completed [employer] Work Phone: Comment on above: Now Then Every 6hr until discontinued st arting 04/04/2021, 8 completed Axial Eye Length - O S - Left Eye Axial Eye Length - OS - Left Eye Routine Combined forms of age-related cataract of left eye Ordered: 12/01/2017 [facility] Work Phone: End: 12-07-2018 Basic metabolic panel [AGGREGATE] Basic Metabolic Panel Routine Preop examination Combined forms of age-related cataract of left eye Essential hypertension 1 Occurrences starting 12/06/2017 until 12/07/2018 [facility] Work Phone: Basic metabolic pane l [AGGREGATE] [facility] Work Phone: Comment on above: Daily until discontinued starting 2020, 4 completed End: 04-29-2021 Catheterization and angiography procedure details panel Diagnostic Cardiac Button Reclaimer Procedure Cardiac Cath Routine One Time for 1 Occurrences starting 04/29/2021 until 04/29/2021 [facility] Phone: Comment on above: One Time for 1 Occurrences starting 11/2020 until 04/29/2021 Catheterization and angiography procedure details panel Diagnostic Cardiac Button Reclaimer Procedure Cardiac Cath Routine 04/29/2021 9:53 AM EDT [facility] Phone: End: 04-30-2021 CBC panel - Blood by Automated count CBC Lab Routine Tomorrow AM for 1 Occurrences starting 04/30/2021 until 04/30/2021 [facility] Phone: Comment on above: Tomorrow AM for 1 Occurrences starting 0 04/30/2021 until 04/30/2021 CBC W Auto Different ial panel - Blood CBC Auto Differential Lab Routine Daily until discontinued starting 04/05/2021, 5 completed [facility] Work Phone: Comment on above: Daily until discontinued starting 2020, 5 completed CK WITH REFLEX CK-MB CK WITH REF ERIN CK-MB Lab Routine 04/04/2021 8:14 PM EDT [facility] Work Phone: End: 04-30-2021 Comprehensive Metabolic Panel w/ Reflex to MG Comprehensive Metabolic Panel w/ Reflex to MG Lab Routine Tomorrow AM for 1 Occurrences starting 04/30/2021 until 04/30/2021 [facility] Work Phone: Comment on above: Tomorrow AM for 1 Occurrences starting 0 04/30/2021 until 04/30/2021 EKG 12 Lead [facility] Work Phone: Comment on above: Daily until discontinued starting 2020, 5 completed End: 04-29-2021 EKG 12 lead EKG 12 lead ECG Routine One Time for 1 Occurrences starting 04/29/2021 until 04/29/2021 [facility] Work Phone: Comment on above: One Time for 1 Occurrences starting 11/2020 until 04/29/2021 End: 03-11-2019 External Lab Cologuard External Lab Cologuard Routine Screen for colon cancer 1 Occurrences starting 03/11/2018 until 03/11/2019 [facility] Glucose [Mass/volume ] in Serum or Plasma [facility] Work Phone: Comment on above: 4X Daily (AC & HS) until discontinued st arting 04/04/2021 As Needed until disc ontinued starting 04/04/2021 End: 04-04-2021 Hemoglobin A1c/Hemoglobin.total in Blood Hemoglobin A1C Lab Routine One Time for 1 Occurrences starting 04/04/2021 until 04/04/2021 [facility] Work Phone: Comment on above: One Time for 1 Occurrences starting 0 05/2021 until 04/04/2021 Hemoglobin A1c/Hemoglobin.total in Blood Hemoglobin A1C Lab Routine 04/04/2021 8:14 PM EDT [facility] Work Phone: Magnesium [Mass/volu me] in Serum or Plasma Magnesium Lab Routine Daily until discontinued starting 04/05/2021, 5 completed [facility] Work Phone: Comment on above: Daily until discontinued starting 2020, 5 completed Oxygen therapy [[facility] Data Set] [employer] Work Phone: Comment on above: Daily until discontinued starting 2020 Daily until disconti nued starting 04/08/2021 Daily until disconti nued starting 04/29/2021 Patient Education Bruises (Contu sions) ED Concussion [facility] Work Phone: Patient referral [facility] Work Phone: Phosphate [Mass/volu me] in Serum or Plasma Phosphorus Lab Routine Daily until discontinued starting 04/05/2021, 5 completed [employer] Work Phone: Comment on above: Daily until discontinued starting 2020, 5 completed End: 04-04-2021 Respiratory care evaluation only Respiratory care evaluation only Respiratory Care Routine One Time for 1 Occurrences starting 04/04/2021 until 04/04/2021 [employer] Work Phone: Comment on above: One Time for 1 Occurrences starting 05/2021 until 04/04/2021 Troponin I.cardiac [Mass/volume] in Serum or Plasma [employer] Work Phone: Immunizations Immunization Date Immunization Notes Care Provider Donal pierre 02-10-2019 tetanus toxoid, redu galo diphtheria toxoid, and acellular pertussis vaccine, adsorbed Johnathan Stubbs MD Work Phone: [facility] [employer] Work Phone: 11-02-2016 pneumococcal conjuga te vaccine, 13 valent; Translations: [PNEUMOCOCCAL CONJUGATE 13-VALENT (PREVNAR 13)] Jailene Diez [facility] Work Phone: Payers Date Payer Category Payer Self-pay [id number] 2022 Medicare HMO [employer] [id number] 2021 Medicare [id number] 2021 Medicare [id number] 2014 Medicare [id number] 2014 Medicare [facility] [facility] [id number] 2014-Present [id number] Medicare xxxxxxxxx [id number] Unknown xxxxxxxxx [id number] Unknown [id number] Unknown [id number] Unknown [id number] Unknown [id number] Unknown [id number] Social History Date Type Detail Facility Start: 03-11-2017 End: 04-08-2021 Tobacco smoking status NHIS Current every day smoker [facility] [employer] Phone: End: 04-03-2021 History of tobacco use Cigarette Smoker [facility] Work Phone: Start: 03-11-2017 End: 07-26-2024 Cigarettes smoked current (pack per day) - Reported [facility] Work Phone: Start: 1950 Sex Assigned At Not on file [facility] Work Phone: Start: 06-10-2018 End: 07-26-2024 Tobacco use and exposure Never used [facility] Start: 06-10-2018 Alcohol intake 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 [facility] Start: 06-29-2022 End: 07-26-2023 Exposure to SARS-CoV-2 (event) Not sure [facility] Start: 04-15-2021 End: 07-26-2024 Tobacco smoking status NJIS Former smoker [facility] End: 04-03-2021 History of tobacco use Current smoker [facility] Start: 1950 Sex Assigned At Female [facility] Work Phone: Start: 06-10-2021 End: 11-02-2022 Tobacco smoking status NJIS Tobacco smoking consumption unknown [facility] Start: 04-04-2021 Cigarettes Dottie [facility] Start: 10-27-2022 End: 07-26-2024 Alcohol intake Ex-drinker (finding) [facility] Start: 10-27-2022 End: 07-26-2024 Tobacco use panel [facility] Start: 09-18-2022 Gender identity Identifies as female gender (finding) [facility] Start: 06-29-2022 Sex Female (finding) [facility] Medical Equipment Procedure Code Equipment Code Equipment Origin al Text Equipment Identifier Dates Implant Cataract [employer]+16.25d - [id number] Start: 11-15-2017 Implant Cataract [employer]+16.25d - [id number] Start: 11-15-2017 Implant Cataract [employer]+17.75d - [id number] Start: 12-13-2017 Implant Cataract [employer]+16.25d - [id number] Start: 11-15-2017 Implant Cataract [employer]+17.75d - [id number] Start: 12-13-2017 Implant Cataract [employer]+16.25d - [id number] Start: 11-15-2017 Implant Cataract [employer]+17.75d - [id number] Start: 12-13-2017 Implant Cataract [employer]+16.25d - [id number] Start: 11-15-2017 Implant Cataract [employer]+17.75d - [id number] Start: 12-13-2017 Implant Cataract [employer]+16.25d - [id number] Start: 11-15-2017 Implant Cataract [employer]+17.75d - [id number] Start: 12-13-2017 Implant Cataract [employer]+16.25d - [id number] Start: 11-15-2017 Implant Cataract [employer]+17.75d - [id number] Start: 12-13-2017 Implant Cataract [employer]+16.25d - [id number] Start: 11-15-2017 Implant Cataract [employer]+16.25d - [id number] Start: 11-15-2017 Implant Cataract [employer]+16.25d - [id number] Start: 11-15-2017 Implant Cataract [employer]+16.25d - [id number] Start: 11-15-2017 Implant Cataract [employer]+16.25d - [id number] Start: 11-15-2017 Implant Cataract [employer]+16.25d - [id number] Start: 11-15-2017 Implant Cataract [employer]+17.75d - [id number] Start: 12-13-2017 Implant Cataract [employer]+16.25d - [id number] Start: 11-15-2017 Implant Cataract [employer]+17.75d - [id number] Start: 12-13-2017 [id number] Start: 03-17-2016 by Miscellaneous route 2 (two) times a day Accu Chek [facility] Plus. [id number] Start: 03-17-2016 by Other route t wice a day. [id number] Start: 03-17-2016 Goals Date Patient Goal Desired Activity /State Comment on above: Blood sugar levels o utside the normal range may be an indicator of diabetes. Clinical Notes 04-09-2021 to 07-01-2025 Telephone Encounter - John Est[facility] - 07/01/2025 4:43 PM EDTTelephone Encounter - John Esteb[facility] - 07/01/2025 4:43 PM EDTTelephone Encounter - Carie Robin RN - 06/27/2025 3:57 PM EDT Note Date & Type Note Facility 07-01-2025 Telephone encounter Note Indira called in to set up refills for her medications. I initially spoke with Indira a week prior regarding Ozempic titration, and at that time she wanted to continue 0.5 mg dose of semaglutide. Given last A1c on file was 7.7% I advised Indira to follow up with new PCP to see if they would be agreeable to titration. Patient did speak with PCP (Dr. Jacobson) - office would like to have her increase dose to 1 mg with next refill. Pended new Rx for 1 mg pen for review, patient will likely start this dose the first week of July (has 4 weeks of 0.5 mg left on hand). Of note, patient reports minimal use of insulin (only administers if glucose >140 or 150). States that she did not not need plavix at this time, confirmed Indira has been taking daily and is taking all other medications as prescribed. [facility] will follow up to set up refill for 1 mg semaglutide in the coming weeks. Patient will be seen in office for follow up 07/25/25. Thanks! John [facility] 07-01-2025 Miscellaneous Notes Indira called in to set up refills for her medications. I initially spoke with Indira a week prior regarding Ozempic titration, and at that time she wanted to continue 0.5 mg dose of semaglutide. Given last A1c on file was 7.7% I advised Indira to follow up with new PCP to see if they would be agreeable to titration. Patient did speak with PCP (Dr. Jacobson) - office would like to have her increase dose to 1 mg with next refill. Pended new Rx for 1 mg pen for review, patient will likely start this dose the first week of July (has 4 weeks of 0.5 mg left on hand). Of note, patient reports minimal use of insulin (only administers if glucose >140 or 150). States that she did not not need plavix at this time, confirmed Indira has been taking daily and is taking all other medications as prescribed. [facility] will follow up to set up refill for 1 mg semaglutide in the coming weeks. Patient will be seen in office for follow up 07/25/25. Thanks! John documented in this encounter [facility] 06-27-2025 Telephone encounter Note KEITH 07/25/24, 07/25/25, Labs 07/19/24. Rx pended. [facility] 06-27-2025 Miscellaneous Notes KEITH 07/25/24, NOV 07/25/25, Labs 07/19/24. Rx pended. documented in this encounter [facility] 06-24-2025 Telephone encounter Note Spoke with patient upon setting up semaglutide refill. Indira remains stable on Ozempic 0.5 mg and will continue this dose for time being per PCP recommendations. Overall she reports that blood glucose is well controlled, though she may benefit from repeat A1c as most recent on file appears to be from 2020, at that time A1c was 7.7%. Though patient may have completed since then at outside PCP office. Indira will have follow up visit with Dr. Stubbs on 07/25/25, however I encouraged her to reach out with any ongoing questions or concerns in the interim. Thanks! John [facility] 06-24-2025 Miscellaneous Notes Spoke with patient upon setting up semaglutide refill. Indira remains stable on Ozempic 0.5 mg and will continue this dose for time being per PCP recommendations. Overall she reports that blood glucose is well controlled, though she may benefit from repeat A1c as most recent on file appears to be from 2020, at that time A1c was 7.7%. Though patient may have completed since then at outside PCP office. Indira will have follow up visit with Dr. Stubbs on 07/25/25, however I encouraged her to reach out with any ongoing questions or concerns in the interim. Thanks! John documented in this encounter [facility] 05-16-2025 Radiology Diagnostic study note [facility] [address] [place] [id number] Chest PA and Lateral MR#: [id number] Acct: [id number] Name: INDIRA HATCH JUAN Rep #: [id number] : 1950 F 74 From: Jossy Ibanez MD PCP: Dr. Gallito Jacobson MD Status: RE G CLI Study:Chest PA and Lateral Date of Exam: 05/15/25 Exam# [id number] Ordering Dr: Gallito Jacobson MD PROCEDURE: CHEST PA AND LATERAL 05/15/2025 REASON FOR EXAM: BRONCHITIS TECHNIQUE: CHEST PA AND LATERAL COMPARISON: CT scan of the chest on 04/04/2021. Radiograph on 04/03/2021. FINDINGS: Mild bilateral basilar atelectatic pulmonary changes, unchanged. Mild bilateral peribronchial interstitial thickening suggestive of bronchitis. There is no demonstrated pleural abnormality. Normal heart and pericardium. Normal mediastinum and tuan. Normal visualized pulmonary arteries. Normal visualized aortic arch and descending thoracic aorta. Normal visualized thoracic spine. Normal visualized ribs, clavicles, and shoulders. There is no demonstrated abnormality of the visualized soft tissue structures ofthe upper abdomen. RAD/Chest PA and Lateral IMPRESSION: Bronchitis. Bilateral basilar atelectatic pulmonary changes, unchanged. Reading [facility] CC: Dr. Gallito Jacobson MD ~ School Services Officer: Signed [facility] 12-07-2024 Telephone encounter Note KEITH KV 07/26/24 NOV KV 07/25/25 Labs 07/19/24 Rx Pending [facility] 12-07-2024 Miscellaneous Notes KEITH KV 07/26/24 NOV KV 07/25/25 Labs 07/19/24 Rx Pending documented in this encounter [facility] 09-19-2024 Telephone encounter Note KEITH 07/22, labs 07/22. Rx pended. [facility] 09-19-2024 Miscellaneous Notes KEITH 07/22, labs 07/22. Rx pended. documented in this encounter [facility] 08-21-2024 Telephone encounter Note KEITH KV 07/26/24 NOV KV 07/25/25 Labs 07/19/24 Rx Pending [facility] 08-21-2024 Miscellaneous Notes KEITH KV 07/26/24 NOV KV 07/25/25 Labs 07/19/24 Rx Pending documented in this encounter [facility] 07-26-2024 History of Presen t illness Narrative CARDIOLOGY HEART FAILURE PROGRESS NOTE Today's Date: 07/26/24 Chart and interval events reviewed. Chief Complaint Chief Complaint Patient presents with Annual Exam Hypertension Hyperlipidemia Coronary Artery Disease Cardiomyopathy Subjective: Ms. Hatch is a 72-year-old woman with a history of type 2 diabetes, hypertension, hyperlipidemia, triple-vessel CAD s/p multi-vessel PCI, ischemic cardiomyopathy (LAD territory infarction), who presents to the HF clinic for follow-up. I saw her in the hospital and initially felt that she may benefit from bypass surgery. She had no viability in the territory of the distal left anterior descending, the decision was made for her to undergo staged PCI. She underwent PCI to the LAD with Dr. Minor and we placed her on GDMT. She has since undergone direct PCI to circumflex. She has generally been doing well on medical therapy. Her last transthoracic echocardiogram showed left ventricular ejection fraction 55%, much improved from before. Currently, she is feeling well. She denies any orthopnea, PND, and she has minimal shortness of breath with exertion. She has some lightheadedness with standing. Her blood pressure is 110/52 with a heart rate of 90 bpm. Past Medical History: Past Medical History: Diagnosis Date Arthritis Back problem Diabetes (HCC) Ovarian cancer (HCC) Scalp cyst Sebaceous cyst Past Surgical History Past Surgical History: Procedure Laterality Date APPENDECTOMY BACK SURGERY 2005,2015 EYE SURGERY Right 2017, Left 2018 HERNIA REPAIR 2004, 2006,2009 TOTAL ABDOMINAL HYSTERECTOMY Family History Family History Problem Relation Name Age of Onset Coronary artery disease Mother stents Heart attack Mother Coronary artery disease Brother stents Coronary artery disease Brother 45.00 quadruple bi-pass Social History Social History Tobacco Use Smoking status: Former Current packs/day: 0.00 Types: Cigarettes Quit date: 04/03/2021 Years since quittin.3 Smokeless tobacco: Never Substance Use Topics Alcohol use: Not Currently Allergies: Allergies Allergen Reactions Oxycodone-Acetaminophen Nausea And Vomiting Projectile vomiting Acetaminophen Nausea And Vomiting Cefuroxime Other reaction(s): leg cramps Other reaction(s): Other Lipitor [Atorvastatin] Lisinopril Cough Oxycodone Other reaction(s): Vomiting Rosuvastatin Other Reaction(s): Other: See Comments Leg Cramps Sacubitril-Valsartan Nausea And Vomiting Other Reaction(s): Vomiting Tetracycline Other reaction(s): Itching Tetracyclines & Related Other reaction(s): itching Current Medications: Current Outpatient Medications Medication Sig Dispense Refill betamethasone, augmented, (Diprolene AF) 0.05 % cream Apply topically daily. carvedilol (Coreg) 12.5 MG tablet Take 1 tablet (12.5 mg) by mouth in the morning and 1 tablet (12.5 mg) in the evening. Take with meals. 180 tablet 3 cholecalciferol (Vitamin D-3) 10 MCG (400 UNIT) tablet Take 400 Units by mouth daily. clopidogrel (Plavix) 75 MG tablet Take 1 tablet (75 mg) by mouth daily. 90 tablet 3 empagliflozin (Jardiance) 10 MG TAKE 1 TABLET BY MOUTH DAILY 90 tablet 2 glucose blood (Precision QID Test) test strip by Other route twice a day. Insulin Aspart 100 UNIT/ML solution INJECT 20 UNITS SUBCUTANEOUSLY IN THE MORNING AND 25 UNITS IN THE EVENING . insulin aspart protamine-insulin aspart (NovoLOG Mix 70-30) (70-30) 100 UNIT/ML injection Inject 45 Units under the skin. losartan (Cozaar) 25 MG tablet Take 1 tablet (25 mg) by mouth daily. 90 tablet 3 magnesium oxide (Mag-Ox) 400 MG tablet Take 400 mg by mouth daily. metFORMIN (Glucophage) 1000 MG tablet Take 1,000 mg by mouth. pravastatin (Pravachol) 40 MG tablet Take 1 tablet (40 mg) by mouth daily. 90 tablet 3 semaglutide (Ozempic, 0.25 or 0.5 MG/DOSE,) 2 MG/3ML solution pen-injector Inject 0.5 mg under the skin 1 (one) time per week. 3 mL 11 Semglee, yfgn, 100 UNIT/ML solution 50 Units by Subcutaneous Infusion route Daily as needed. spironolactone (Aldactone) 25 MG tablet Take 1 tablet (25 mg) by mouth daily. 90 tablet 3 pantoprazole (ProtoNix) 40 MG EC tablet TAKE 1 TABLET BY MOUTH EVERY MORNING (BEFORE BREAKFAST) 90 tablet 3 semaglutide (Ozempic, 0.25 or 0.5 MG/DOSE,) 2 MG/3ML solution pen-injector Inject 0.25 mg under the skin 1 (one) time per week. 1 each 1 No current facility-administered medications for this visit. Review of Systems: All other systems were reviewed and are negative other than as noted in the HPI. Vital Signs: Vitals: 07/26/24 1252 BP: 110/52 BP Location: Right arm Patient Position: Sitting Pulse: 90 SpO2: 97% Weight: 166 lb (75.3 kg) Height: 5' 3 (1.6 m) Body mass index is 29.41 kg/m . Wt Readings from Last 3 Encounters: 07/26/24 166 lb (75.3 kg) 07/26/23 187 lb (84.8 kg) 10/27/22 186 lb (84.4 kg) Physical Exam Constitutional: General: She is not in acute distress. Appearance: Normal appearance. HENT: Head: Normocephalic and atraumatic. Mouth/Throat: Mouth: Mucous membranes are moist. Eyes: General: Right eye: No discharge. Left eye: No discharge. Extraocular Movements: Extraocular movements intact. Conjunctiva/sclera: Conjunctivae normal. Neck: Vascular: No JVD. Cardiovascular: Rate and Rhythm: Normal rate and regular rhythm. Heart sounds: No murmur heard. Pulmonary: Effort: Pulmonary effort is normal. No respiratory distress. Breath sounds: Normal breath sounds. No wheezing. Abdominal: General: Abdomen is flat. There is no distension. Palpations: Abdomen is soft. Tenderness: There is no abdominal tenderness. Musculoskeletal: General: No swelling. Right lower leg: No edema. Left lower leg: No edema. Skin: Coloration: Skin is not jaundiced. Findings: No rash. Neurological: Mental Status: She is alert and oriented to person, place, and time. Mental status is at baseline. Psychiatric: Mood and Affect: Mood normal. Behavior: Behavior normal. CBC: No results for input(s): WBC, HGB, HCT, PLT in the last 72 hours. BMP:No results for input(s): NA, K, CL, CO2, BUN, CREATININE, GLU, LABGLOM in the last 72 hours. No lab exists for component: CA CMP: Lab Results Component Value Date NA 137 07/19/2024 K 4.5 07/19/2024 CL 104 07/19/2024 CO2 23 07/19/2024 BUN 16 07/19/2024 CREATININE 0.64 07/19/2024 GLUCOSE 115 (A) 07/19/2024 CALCIUM 10.8 (A) 07/19/2024 PROT 7.6 04/09/2021 BILITOT 1.5 (H) 04/09/2021 ALKPHOS 45 04/09/2021 AST 37 04/09/2021 LABGLOM 43 05/08/2021 Magnesium: Lab Results Component Value Date MG 1.8 04/09/2021 LFT: Lab Results Component Value Date AST 37 04/09/2021 ALKPHOS 45 04/09/2021 BILITOT 1.5 (H) 04/09/2021 INR: Lab Results Component Value Date INR 1.1 04/04/2021 PROTIME 11.6 04/04/2021 PRO-BNP: No results found for: BNP TSH: Lab Results Component Value Date TSH 2.269 04/04/2021 Lipid Profile: Lab Results Component Value Date TRIG 236 (A) 04/04/2021 HDL 33 (L) 04/04/2021 CHOL 169 04/04/2021 Hemoglobin A1C: Lab Results Component Value Date HGBA1C 7.7 (A) 04/04/2021 ANDI: No results found for: ANDI Ferritin: No results found for: FERRITIN HIV: No results found for: [id number] EKG: See Report Echo: See Report EF: No components found for: LVEF, LVEFMODE IMPRESSIONS: Diagnosis Plan 1. Primary hypertension ECG 12 lead - CLINIC PERFORMED 2. Type 2 diabetes mellitus with hyperosmolarity without coma, without long-term current use of insulin (CMS/HCC) ([facility]) 3. 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 4. Ischemic cardiomyopathy 5. NSTEMI (non-ST elevated myocardial infarction) ([facility]) Ischemic cardiomyopathy with reduced ejection fraction NYHA class III: Today, she is still doing well. She is still bowling, and she continues to work 4 days per week at [employer]. Her current medications include carvedilol 12.5 mg twice daily, spironolactone 25 mg per day, losartan 25 mg per day, and empagliflozin 10 mg per day. Today we will make no changes to her medical regimen. Coronary artery disease: As above. She has no signs or symptoms of ischemia today. She has undergone a successful PCI to the LAD and circumflex with Dr. Minor. She is on pravastatin 40 mg q.h.s. and clopidogrel 75 mg per day. Type 2 diabetes: She is on insulin, semaglutide and empagliflozin. Being managed by Dr. Ang. Johnathan Leigh MD, PhD, furnished ongoing care related to Indira Hatch for their congestive heart failure, a serious and complex condition. I assume responsibility for the patient's ongoing medical care for this condition. Johnathan Stubbs MD, PhD Advanced Heart Failure Cardiology [facility]. [facility] [place] 1:28 PM 07/26/24 documented in this encounter [facility] 07-26-2024 Note CARDIOLOGY HEART JORDAN LURE PROGRESS NOTE Today's Date: 07/26/24 Chart and interval events reviewed. Chief Complaint Chief Complaint Patient presents with Annual Exam Hypertension Hyperlipidemia Coronary Artery Disease Cardiomyopathy Subjective: Ms. Hatch is a 72-year-old woman with a history of type 2 diabetes, hypertension, hyperlipidemia, triple-vessel CAD s/p multi-vessel PCI, ischemic cardiomyopathy (LAD territory infarction), who presents to the HF clinic for follow-up. I saw her in the hospital and initially felt that she may benefit from bypass surgery. She had no viability in the territory of the distal left anterior descending, the decision was made for her to undergo staged PCI. She underwent PCI to the LAD with Dr. Minor and we placed her on GDMT. She has since undergone direct PCI to circumflex. She has generally been doing well on medical therapy. Her last transthoracic echocardiogram showed left ventricular ejection fraction 55%, much improved from before. Currently, she is feeling well. She denies any orthopnea, PND, and she has minimal shortness of breath with exertion. She has some lightheadedness with standing. Her blood pressure is 110/52 with a heart rate of 90 bpm. Past Medical History: Past Medical History: Diagnosis Date Arthritis Back problem Diabetes (HCC) Ovarian cancer (HCC) Scalp cyst Sebaceous cyst Past Surgical History Past Surgical History: Procedure Laterality Date APPENDECTOMY BACK SURGERY 2005,2015 EYE SURGERY Right 2017, Left 2018 HERNIA REPAIR 2004, 2006,2009 TOTAL ABDOMINAL HYSTERECTOMY Family History Family History Problem Relation Name Age of Onset Coronary artery disease Mother stents Heart attack Mother Coronary artery disease Brother stents Coronary artery disease Brother 45.00 quadruple bi-pass Social History Social History Tobacco Use Smoking status: Former Current packs/day: 0.00 Types: Cigarettes Quit date: 04/03/2021 Years since quittin.3 Smokeless tobacco: Never Substance Use Topics Alcohol use: Not Currently Allergies: Allergies Allergen Reactions Oxycodone-Acetaminophen Nausea And Vomiting Projectile vomiting Acetaminophen Nausea And Vomiting Cefuroxime Other reaction(s): leg cramps Other reaction(s): Other Lipitor [Atorvastatin] Lisinopril Cough Oxycodone Other reaction(s): Vomiting Rosuvastatin Other Reaction(s): Other: See Comments Leg Cramps Sacubitril-Valsartan Nausea And Vomiting Other Reaction(s): Vomiting Tetracycline Other reaction(s): Itching Tetracyclines & Related Other reaction(s): itching Current Medications: Current Outpatient Medications Medication Sig Dispense Refill betamethasone, augmented, (Diprolene AF) 0.05 % cream Apply topically daily. carvedilol (Coreg) 12.5 MG tablet Take 1 tablet (12.5 mg) by mouth in the morning and 1 tablet (12.5 mg) in the evening. Take with meals. 180 tablet 3 cholecalciferol (Vitamin D-3) 10 MCG (400 UNIT) tablet Take 400 Units by mouth daily. clopidogrel (Plavix) 75 MG tablet Take 1 tablet (75 mg) by mouth daily. 90 tablet 3 empagliflozin (Jardiance) 10 MG TAKE 1 TABLET BY MOUTH DAILY 90 tablet 2 glucose blood (Precision QID Test) test strip by Other route twice a day. Insulin Aspart 100 UNIT/ML solution INJECT 20 UNITS SUBCUTANEOUSLY IN THE MORNING AND 25 UNITS IN THE EVENING . insulin aspart protamine-insulin aspart (NovoLOG Mix 70-30) (70-30) 100 UNIT/ML injection Inject 45 Units under the skin. losartan (Cozaar) 25 MG tablet Take 1 tablet (25 mg) by mouth daily. 90 tablet 3 magnesium oxide (Mag-Ox) 400 MG tablet Take 400 mg by mouth daily. metFORMIN (Glucophage) 1000 MG tablet Take 1,000 mg by mouth. pravastatin (Pravachol) 40 MG tablet Take 1 tablet (40 mg) by mouth daily. 90 tablet 3 semaglutide (Ozempic, 0.25 or 0.5 MG/DOSE,) 2 MG/3ML solution pen-injector Inject 0.5 mg under the skin 1 (one) time per week. 3 mL 11 Semglee, yfgn, 100 UNIT/ML solution 50 Units by Subcutaneous Infusion route Daily as needed. spironolactone (Aldactone) 25 MG tablet Take 1 tablet (25 mg) by mouth daily. 90 tablet 3 pantoprazole (ProtoNix) 40 MG EC tablet TAKE 1 TABLET BY MOUTH EVERY MORNING (BEFORE BREAKFAST) 90 tablet 3 semaglutide (Ozempic, 0.25 or 0.5 MG/DOSE,) 2 MG/3ML solution pen-injector Inject 0.25 mg under the skin 1 (one) time per week. 1 each 1 No current facility-administered medications for this visit. Review of Systems: All other systems were reviewed and are negative other than as noted in the HPI. Vital Signs: Vitals: 07/26/24 1252 BP: 110/52 BP Location: Right arm Patient Position: Sitting Pulse: 90 SpO2: 97% Weight: 166 lb (75.3 kg) Height: 5' 3 (1.6 m) Body mass index is 29.41 kg/m?. Wt Readings from Last 3 Encounters: 07/26/24 166 lb (75.3 kg) 07/26/23 187 lb (84.8 kg) 10/27/22 186 lb (84.4 kg) Physical Exam Constitutional: Gen (more content not included)... [facility] 07-24-2024 Telephone encounter Note Upcoming visit 07/26 OV 07/26/2023 BMP 07/19/2024 [facility] [employer] Work Phone: 07-24-2024 Miscellaneous Notes Upcoming visit 07/26 OV 07/26/2023 BMP 07/19/2024 documented in this encounter [facility] 07-11-2024 Telephone encounter Note Spoke with patient, she continues to do well on Ozempic. It looks like Indira has not had repeat A1c since beginning Ozempic. Upon speaking with her today Indira reiterated that her PCP would like her to continue on 0.5 mg dose moving forward. She reports some improvement in glucose control and about a 15 lb weight loss from baseline. Patient will be seen in office for 1 year follow up 07/26/24. Thanks! John [facility] 07-11-2024 Miscellaneous Notes Spoke with patient, she continues to do well on Ozempic. It looks like Indira has not had repeat A1c since beginning Ozempic. Upon speaking with her today Indira reiterated that her PCP would like her to continue on 0.5 mg dose moving forward. She reports some improvement in glucose control and about a 15 lb weight loss from baseline. Patient will be seen in office for 1 year follow up 07/26/24. Thanks! John documented in this encounter [facility] 04-05-2024 Telephone encounter Note KEITH 07/21, OCT 06, labs 08/21. Rx pended. [facility] 04-05-2024 Miscellaneous Notes KEITH 07/21, OCT 06, labs 08/21. Rx pended. documented in this encounter [facility] 01-08-2024 Note HNO ID: [id number] Author: SANTIAGO LEIVA APRN.[facility] Service: ? Author Type: Nurse Practitioner Type: Progress Notes Filed: 01/08/2024 15:37 Note Text: CC: Patient presents with: Sinus Problem: Sinus pressure in head and face, drainage x 1 day Patient was recently on antibiotics for a sinus infection. HPI: Indira Hatch is a 73 year old female who presents to the office with complaint of head congestion and cough, nonproductive for the past day. Symptoms are staying the same. Associated symptoms includes nasal congestion. Denies fever, nausea, vomiting , and diarrhea. Treatments tried include nothing so far. with no relief of symptoms. Sick contacts: unknown. History of asthma, frequent episodes of bronchitis, chronic bronchitis, bronchiectasis or COPD: No Smoker: No Seasonal/environmental allergies: No The ROS is otherwise negative. The patient's pmh, medications, allergies, and past visits are reviewed. PHYSICAL EXAM: BP 120/52 Pulse 88 Temp 36.7 ?C (98.1 ?F) Resp 20 Wt 78 kg (172 lb) SpO2 96% General appearance: alert, cooperative, pleasant, in no acute distress Head: Normocephalic Eyes: EOM's intact, conjunctiva pink and moist, no icterus, sclera white, non-injected Ears: Right ear: External ear/canal- Normal, TM - clear with good landmarks. Left ear: External ear/canal- Normal, TM - clear with good landmarks Oropharynx:moist without lesions, No erythema, exudates or tonsillar hypertrophy. Heart: Negative. RRR without obvious murmur, gallop, or rubs. No ectopy. Lungs: clear to auscultation, without rales or wheeze, good air exchange No past medical history on file. No past surgical history on file. ALLERGIES Cefuroxime, Entresto [Sacubitril-Valsartan], Lipitor [Atorvastatin], Lisinopril, Percocet [Oxycodone-Acetaminophen], Rosuvastatin, and Tetracycline MEDICATIONS clopidogrel (PLAVIX) 75 mg tablet JARDIANCE 10 mg tablet losartan (COZAAR) 25 mg tablet Take 1 tablet by mouth every afternoon. magnesium oxide (MAG-OX) 400 mg (241.3 mg magnesium) tablet Take 400 mg by mouth. pravastatin (PRAVACHOL) 40 mg tablet spironolactone (ALDACTONE) 25 mg tablet Take 25 mg by mouth. metFORMIN ER (GLUCOPHAGE XR) 500 mg 24 hr tablet Take 2,000 mg by mouth. insulin glargine-yfgn (SEMGLEE,INSULIN GLARGINE-YFGN,) 100 unit/mL solution Inject 50 Units subcutaneously at bedtime as needed. NOVOLOG FLEXPEN U-100 INSULIN 100 unit/mL (3 mL) INJECT 20 UNITS SUBCUTANEOUSLY AT LUNCH AND 25 UNITS AT DINNER carvedilol (COREG) 12.5 mg tablet semaglutide (OZEMPIC SUBCUTANEOUS) Inject subcutaneously. insulin 70/30 aspart protamine-aspart units/mL (NOVOLOG MIX 70/30) 100 units/mL solution Inject 45 Units subcutaneously. (Patient not taking: Reported on 01/08/2024) No family history on file. Social History Tobacco Use Smoking status: Every Day Types: Cigarettes Passive exposure: Current Smokeless tobacco: Never ASSESSMENT/PLAN: 1. URI, acute - ICD9: 465.9, ICD10: J06.9 - COVID NAAT, UPPER RESPIRATORY, ROUTINE - INFLUENZA AANDB MOLECULAR (POC) - pos flu A Patient did request an antibiotic. Discussed viral etiology with patient and how antibiotics are not required on day 1 of symptoms. Prescription instructions reviewed with patient as applicable. Potential red flag symptoms discussed with the patient. Reviewed appropriate action plan to take if red flag symptoms occur. Patient agreeable to treatment plan. Santiago Leiva APRN.[facility] 10-18-2023 Telephone encounter Note Last office visit 07/26 with KV. Next visit scheduled 06/2024. Labs 08/03. [facility] 10-18-2023 Miscellaneous Notes Last office visit 07/26 with KV. Next visit scheduled 06/2024. Labs 08/03. documented in this encounter [facility] 09-23-2023 Telephone encounter Note Patient has been tolerating 0.5 mg per week Ozempic and will be continuing on this dose. She is not titrating any further up at this time. Updating rx to reflect current dose. Pended for your review. [facility] 09-23-2023 Miscellaneous Notes Patient has been tolerating 0.5 mg per week Ozempic and will be continuing on this dose. She is not titrating any further up at this time. Updating rx to reflect current dose. Pended for your review. documented in this encounter [facility] 07-26-2023 History of Presen t illness Narrative CARDIOLOGY HEART FAILURE PROGRESS NOTE Today's Date: 07/26/23 Chart and interval events reviewed. Chief Complaint Chief Complaint Patient presents with 9 month follow up Hypertension Hyperlipidemia Coronary Artery Disease Cardiomyopathy Subjective: Ms. Hatch is a 72-year-old woman with a history of type 2 diabetes, hypertension, hyperlipidemia, triple-vessel CAD s/p multi-vessel PCI, ischemic cardiomyopathy (LAD territory infarction), who presents to the HF clinic for follow-up. I saw her in the hospital and initially felt that she may benefit from bypass surgery. She had no viability in the territory of the distal left anterior descending, the decision was made for her to undergo staged PCI. She underwent PCI to the LAD with Dr. Minor and we placed her on GDMT. She has since undergone direct PCI to circumflex. She has generally been doing well on medical therapy. Her last transthoracic echocardiogram showed left ventricular ejection fraction 55%, much improved from before. Currently. She reports feeling about the same. She has NYHA class II symptoms of shortness of breath with exertion, and fatigue, but she denies any chest pain, palpitations, lower extremity edema, orthopnea, and PND. Blood pressure is 126/60 with a heart rate of 82 bpm. Past Medical History: Past Medical History: Diagnosis Date Arthritis Back problem Diabetes (HCC) Ovarian cancer (HCC) Scalp cyst Sebaceous cyst Past Surgical History Past Surgical History: Procedure Laterality Date APPENDECTOMY BACK SURGERY 2005,2014 EYE SURGERY Right 2017, Left 2018 HERNIA REPAIR 2004, 2006,2009 TOTAL ABDOMINAL HYSTERECTOMY Family History Family History Problem Relation Name Age of Onset Coronary artery disease Mother stents Heart attack Mother Coronary artery disease Brother stents Coronary artery disease Brother 45.00 quadruple bi-pass Social History Social History Tobacco Use Smoking status: Former Types: Cigarettes Quit date: 04/03/2021 Years since quittin.3 Smokeless tobacco: Never Substance Use Topics Alcohol use: Not Currently Allergies: Allergies Allergen Reactions Oxycodone-Acetaminophen Projectile vomiting Acetaminophen Nausea And Vomiting Cefuroxime Other reaction(s): leg cramps Other reaction(s): Other Crestor [Rosuvastatin] Entresto [Sacubitril-Valsartan] Nausea And Vomiting Lipitor [Atorvastatin] Oxycodone Other reaction(s): Vomiting Tetracycline Other reaction(s): Itching Tetracyclines & Related Other reaction(s): itching Current Medications: Current Outpatient Medications Medication Sig Dispense Refill carvedilol (Coreg) 12.5 MG tablet Take 1 tablet (12.5 mg) by mouth in the morning and 1 tablet (12.5 mg) in the evening. Take with meals. 180 tablet 3 cholecalciferol (Vitamin D-3) 10 MCG (400 UNIT) tablet Take 400 Units by mouth daily. clopidogrel (Plavix) 75 MG tablet Take 1 tablet (75 mg) by mouth daily. 90 tablet 1 empagliflozin (Jardiance) 10 MG TAKE 1 TABLET BY MOUTH DAILY 90 tablet 2 glucose blood (Precision QID Test) test strip by Other route twice a day. Insulin Aspart 100 UNIT/ML solution INJECT 20 UNITS SUBCUTANEOUSLY IN THE MORNING AND 25 UNITS IN THE EVENING . insulin aspart protamine-insulin aspart (NovoLOG Mix 70-30) (70-30) 100 UNIT/ML injection Inject 45 Units under the skin. magnesium oxide (Mag-Ox) 400 MG tablet Take 400 mg by mouth daily. metFORMIN (Glucophage) 1000 MG tablet Take 1,000 mg by mouth. nitroglycerin (Nitrostat) 0.[address] 1 tablet (0.4 mg) under the tongue every 5 minutes as needed for chest pain. 90 tablet 0 pantoprazole (ProtoNix) 40 MG EC tablet TAKE 1 TABLET BY MOUTH EVERY MORNING (BEFORE BREAKFAST) 90 tablet 3 pravastatin (Pravachol) 40 MG tablet Take 1 tablet (40 mg) by mouth daily. 90 tablet 3 Semglee, yfgn, 100 UNIT/ML solution 50 Units by Subcutaneous Infusion route Daily as needed. spironolactone (Aldactone) 25 MG tablet Take 1 tablet (25 mg) by mouth daily. 90 tablet 3 glipiZIDE (Glucotrol) 5 MG tablet Take 5 mg by mouth daily. No current facility-administered medications for this visit. Review of Systems: All other systems were reviewed and are negative other than as noted in the HPI. Vital Signs: Vitals: 07/26/23 1342 BP: 126/68 BP Location: Right arm Pulse: 82 SpO2: 97% Weight: 187 lb (84.8 kg) Height: 5' 3 (1.6 m) Body mass index is 33.13 kg/m . Wt Readings from Last 3 Encounters: 07/26/23 187 lb (84.8 kg) 10/27/22 186 lb (84.4 kg) 10/27/22 188 lb (85.3 kg) Physical Exam Constitutional: General: She is not in acute distress. Appearance: Normal appearance. HENT: Head: Normocephalic and atraumatic. Mouth/Throat: Mouth: Mucous membranes are moist. Eyes: General: Right eye: No discharge. Left eye: No discharge. Extraocular Movements: Extraocular movements intact. Conjunctiva/sclera: Conjunctivae normal. Neck: Vascular: No JVD. Cardiovascular: Rate and Rhythm: Normal rate and regular rhythm. Heart sounds: No murmur heard. Pulmonary: Effort: Pulmonary effort is normal. No respiratory distress. Breath sounds: Normal breath sounds. No wheezing. Abdominal: General: Abdomen is flat. There is no distension. Palpations: Abdomen is soft. Tenderness: There is no abdominal tenderness. Musculoskeletal: General: No swelling. Right lower leg: No edema. Left lower leg: No edema. Skin: Coloration: Skin is not jaundiced. Findings: No rash. Neurological: Mental Status: She is alert and oriented to person, place, and time. Mental status is at baseline. Psychiatric: Mood and Affect: Mood normal. Behavior: Behavior normal. CBC: No results for input(s): WBC, HGB, HCT, PLT in the last 72 hours. BMP:No results for input(s): NA, K, CL, CO2, BUN, CREATININE, GLU, LABGLOM in the last 72 hours. No lab exists for component: CA CMP: Lab Results Component Value Date NA 137 05/08/2021 K 4.4 05/08/2021 CL 103 05/08/2021 CO2 25.0 05/08/2021 BUN 21 05/08/2021 CREATININE 1.31 05/08/2021 GLUCOSE 203 05/08/2021 CALCIUM 10.3 05/08/2021 PROT 7.6 04/09/2021 BILITOT 1.5 (H) 04/09/2021 ALKPHOS 45 04/09/2021 AST 37 04/09/2021 LABGLOM 43 05/08/2021 Magnesium: Lab Results Component Value Date MG 1.8 04/09/2021 LFT: Lab Results Component Value Date AST 37 04/09/2021 ALKPHOS 45 04/09/2021 BILITOT 1.5 (H) 04/09/2021 INR: Lab Results Component Value Date INR 1.1 04/04/2021 PROTIME 11.6 04/04/2021 PRO-BNP: No results found for: BNP TSH: Lab Results Component Value Date TSH 2.269 04/04/2021 Lipid Profile: Lab Results Component Value Date TRIG 236 (A) 04/04/2021 HDL 33 (L) 04/04/2021 CHOL 169 04/04/2021 Hemoglobin A1C: Lab Results Component Value Date HGBA1C 7.7 (A) 04/04/2021 ANDI: No results found for: ANDI Ferritin: No results found for: FERRITIN HIV: No results found for: [id number] EKG: See Report Echo: See Report EF: No components found for: LVEF, LVEFMODE IMPRESSIONS: Diagnosis Plan 1. Primary hypertension 2. 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 3. NSTEMI (non-ST elevated myocardial infarction) (CMS/HCC) (HCC) 4. Ischemic cardiomyopathy Ischemic cardiomyopathy with reduced ejection fraction NYHA class III: Today, she is euvolemic. Her current medications include carvedilol 12.5 mg twice daily, spironolactone 25 mg per day, and empagliflozin 10 mg per day. Today we will continue these as prescribed. She was on quinapril, but she got off this (apparently a recall?), and was placed on lisinopril which caused a cough. I started her losartan 25 mg per day. Will get MP in a week. Coronary artery disease: As above. She has no signs or symptoms of ischemia today. She has undergone a successful PCI to the LAD and circumflex with Dr. Minor. She is on pravastatin 40 mg q.h.s. and clopidogrel 75 mg per day. Type 2 diabetes: She is on insulin, and empagliflozin. Being managed by Dr. Ang. She would like to remain off the sulfonylurea. I would suggest GLP-RA such as semaglutide. Johnathan Stubbs MD, PhD Advanced Heart Failure Cardiology [facility] 2:08 PM 07/26/23 documented in this encounter [facility] 07-26-2023 Instructions Johnathan Stubbs MD - 07/26/2023 1:45 PM EDT Indira, you look great today. You can stop the nitroglycerine Start losartan 25 mg per day. Get blood work in a week. Return in a year, earlier if need be. documented in this encounter [facility] 07-08-2023 Telephone encounter Note Labs/ov current. Spoke w/ pt- she noticed her NTG was - needs a refill. Not having any cp. Rx's pended for rf. [facility] 07-08-2023 Miscellaneous Notes Labs/ov current. Spoke w/ pt- she noticed her NTG was - needs a refill. Not having any cp. Rx's pended for rf. We scheduled pt's delivery for all of her medications but it looks like there are only 16 tabs left on her clopidogrel script. If appropriate, please send script to [facility] so we can get this delivered with all of her other medications. Pended script for review. Thank you! documented in this encounter [facility] 07-08-2023 Telephone encounter Note We scheduled pt's delivery for all of her medications but it looks like there are only 16 tabs left on her clopidogrel script. If appropriate, please send script to [facility] so we can get this delivered with all of her other medications. Pended script for review. Thank you! [facility] 04-08-2023 Telephone encounter Note Last KV ov 10/20, labs 07/20. Pt due for KV 6 mo f/u. SJ msg'd to schedule. Rx pended for rf. [facility] 04-08-2023 Miscellaneous Notes Last KV ov 10/20, labs 07/20. Pt due for KV 6 mo f/u. SJ msg'd to schedule. Rx pended for rf. documented in this encounter [facility] 01-07-2023 Telephone encounter Note Last OV 10/27/2022. Labs 07/09/2022. Follow up due in 9 months. Rx pended for refill. [facility] 01-07-2023 Miscellaneous Notes Last OV 10/27/2022. Labs 07/09/2022. Follow up due in 9 months. Rx pended for refill. documented in this encounter [facility] 07-09-2022 Miscellaneous Notes July 09, 2022 PID: [id number] Indira Hatch [address] [place] [address] Dear Ms. Hatch, We are pleased to inform you that the results of your recent breast imaging exam on 07/09/2022 are normal. Early detection of cancer is very important. We also understand recommendations regarding breast cancer screening are controversial. Please discuss with your primary care provider which strategy is best for you and whether a mammogram is right for you. Your imaging studies and report will be kept on file at [facility] as part of your permanent medical record and are available for your continuing care. Thank you for allowing us to help in meeting your health care needs. Sincerely, Dr. Gavin Interpreting Radiologist [facility] (Normal over 40) documented in this encounter [facility] 07-09-2022 History of Presen t illness Narrative Radiology Service Progress Note PATIENT NAME: Indira Hatch DATE OF SERVICE: July 09, 2022 TIME: 7:59 AM PATIENT IDENTITY VERIFICATION COMPLETED USING TWO (2) IDENTIFIERS: Name and Date of confirmed by patient verbally. FALL SCREENING: Has the patient had 2 falls in the last year or 1 fall with injury or currently using an Ambulatory Assistive Device (Walker, Cane, Wheelchair, Crutches, etc.)? No PATIENT GENDER DATA: Female. status: : No status: NO. PATIENT RELEVANT IMPLANT DATA REVIEWED: Not Applicable RADIOLOGY DEPARTMENT: Mammography PERIPHERAL IV DATA: Not applicable SIGNED BY: RT Lars(R) July 09, 2022 7:59 AM documented in this encounter [facility] 04-29-2021 Note Attestation signed by Adriana Minor MD at 04/29/2021 3:24 PM I, Dr. Adriana Minor, saw and evaluated the patient on 04/29/2021. I personally obtained the obrien and critical portions of the history and physical exam. I reviewed the labs, imaging studies, and electronic medical record. I reviewed the TRAY SETTER's documentation, and discussed the patient with the TRAY SETTER. I agree with the TRAY SETTER's medical decision making and have edited the note to reflect my clinical findings and my assessment and plan. Stable s/p PCI of Lcx/OM with 2 JESUS. Widely patent stents of prox-midLAD and patent dominant RCA with mild-moderate diffuse CAD. Continue current meds including asa/brilinta, and plan f/u with Dr. Stubbs. Plan to reassess EF by echo in 90days. Adriana Minor MD Name: Indira Hatch Date of : 1950 Date of Admission: 04/29/2021 Date of Discharge: 04/29/2021 Admitting physician: Dr. Minor Discharge Attending: BONY Huber CNP, Dr. Rea Primary Care Physician: CHERIE DELUCA Review of Systems: Review of Systems Constitutional: Negative for chills, diaphoresis and fever. HENT: Negative for nosebleeds. Eyes: Negative for visual disturbance. Respiratory: Negative for cough, shortness of breath and wheezing. Cardiovascular: Negative for chest pain, palpitations and leg swelling. Gastrointestinal: Negative for abdominal pain, blood in stool, constipation, diarrhea, nausea and vomiting. Genitourinary: Negative for hematuria. Musculoskeletal: Negative for myalgias. Skin: Negative for rash. Neurological: Negative for dizziness and syncope. Hematological: Does not bruise/bleed easily. Psychiatric/Behavioral: Negative for dysphoric mood and suicidal ideas. Denies Depression Physical Exam: Physical Exam Constitutional: General: She is not in acute distress. Appearance: Normal appearance. She is well-developed. She is not diaphoretic. HENT: Mouth/Throat: Pharynx: No oropharyngeal exudate. Eyes: General: No scleral icterus. Right eye: No discharge. Left eye: No discharge. Neck: Thyroid: No thyromegaly. Vascular: No JVD. Cardiovascular: Rate and Rhythm: Normal rate and regular rhythm. Chest Wall: PMI is not displaced. Pulses: Normal pulses. Heart sounds: Normal heart sounds. No murmur heard. No gallop. Pulmonary: Effort: No accessory muscle usage or respiratory distress. Breath sounds: Normal breath sounds. Abdominal: General: Bowel sounds are normal. There is no distension or abdominal bruit. Palpations: Abdomen is soft. There is no shifting dullness or hepatomegaly. Tenderness: There is no abdominal tenderness. Musculoskeletal: General: Normal range of motion. Skin: General: Skin is warm and dry. Comments: Right radial site D&I, without hematoma or ecchymosis. Pulse 2+, good sensation. Band still applied. Neurological: Mental Status: She is alert and oriented to person, place, and time. Vitals: 04/29/21 1115 04/29/21 1130 04/29/21 1145 04/29/21 1200 BP: (!) 133/59 127/68 114/63 (!) 126/57 Pulse: 84 86 83 90 Resp: Temp: TempSrc: SpO2: 98% 98% 97% 97% Weight: Height: Reason for Admission: staged PCI Consultants: Cardiac rehab HOSPITAL ADMISSION PROBLEM LIST: Patient Active Problem List Diagnosis ? NSTEMI (non-ST elevated myocardial infarction) (HCC) ? Adrenal adenoma ? Arthritis ? Congestive heart failure (HCC) ? Diabetes mellitus (HCC) ? History of back problems ? History of ovarian cancer ? Ischemic cardiomyopathy ? Acute systolic (congestive) heart failure (HCC) ? Tobacco abuse ? Other hyperlipidemia ? 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 Procedures: Cath Summary Final report pending Verbal report - JESUS LCx HOSPITAL COURSE : Ms. Hatch is a 70-year-old female with a history of type 2 diabetes, hypertension, and hyperlipidemia who presented to [facility] ED with a chief complaint of shortness of breath, was found to have triple-vessel coronary artery disease and new onset ischemic cardiomyopathy (left anterior descending territory infarction). Initially felt that she may benefit from bypass surgery. She had no viability in the territory of the distal left anterior descending, the decision was made for her to undergo staged PCI. She underwent PCI to the left anterior descending with Dr. Minor and was placed her on guideline directed medical therapy. She saw Dr. Stubbs outpatient and was doing well with some QUINONEZ, fatigue, and dizziness. She [facility] today and underwent PCI LCx by Dr. Minor without complication. Final report pending. She feels well without CP, SOB, vision/speech changes. VSS. EKG with new T wave inversions V1, V2, V3, V6. Pl (more content not included)... [facility] 04-29-2021 [facility] Emily Lynn, DAG SPRAYER - [employer] POWER PLANT MANAGER - 04/29/2021 Call your doctor with any medication questions or if you notice any side effects from your medications. If you are unable to fill your medications, please call your Pleater Hand immediately. The office number is located with your follow-up appointment information. Call your doctor if any redness or drainage from the wound site. DO NOT stop taking your medication unless instructed to do so by your doctor. Read the drug information material that were given to you and take medications as instructed by your doctor. New drugs may have been added to your medications, that will strengthen your heart and prevent re-stenosis of the coronary arteries. Drink 6 glasses of water (8 ounces each) over the next 24 hours. Water helps clear the dye from your body. No alcoholic beverages for 24 hours. It may interfere with healing. No exercise or sex for 5 days. Call 911 for chest pain, arm pain, nausea, neck pain, dizziness or unusual sweating AND your pain has not relieved with 2 doses of Nitroglycerin. Call your doctor if a lump at the puncture site enlarges or is larger than marble size. Call your doctor for numbness, tingling, or swelling of the fingers, hand or wrist. Call your doctor for increased area or bruising with discoloration extending into the arm. If bleeding occurs, hold pressure with your thumb against the puncture site and your finger against the back of the wrist for 10 minutes, if BLEEDING continues CALL 911. OK to shower. No tub baths, swimming pools or hot tub soaking for three days. Wash site daily with soap and water, dry gently. The healing wound should remain soft and dry. Keep site clean and dry, no soaking of wrist for three days (no cleaning or dish washing). Remove band aid the day after procedure and leave open to air. No bending of affected wrist for 24 hours. DO NOT lift more than three pounds for 3-5 days[address] driving for 24 hours. GIVE PCI PACKET (FROM BRAKE DRUM MOLDER) TO PATIENT Give Coronary Artery Discharge Booklet PLEASE CALL YOUR HEART DOCTOR IF YOU CANNOT GET YOUR MEDICATIONS. THE NUMBER IS LISTED WITH YOUR FOLLOW-UP APPOINTMENT. Procedure Sedation Instructions 1. If you have received sedation: you must have someone drive you home 2. You should not drive a car, operate machinery, drink alcohol or perform any activity that requires alertness for the rest of the day. The effects of the sedative should be gone by tomorrow. Blood work in 5-7 days, see orders documented in this encounter [facility] Work Phone: 04-29-2021 Hospital course Narrative Name: Indira Hatch Date of : 1950 Date of Admission: 04/29/2021 Date of Discharge: 04/29/2021 Admitting physician: Dr. Minro Discharge Attending: BONY Huber CNP, Dr. Minor Primary Care Physician: CHERIE DELUCA Review of Systems: Review of Systems Constitutional: Negative for chills, diaphoresis and fever. HENT: Negative for nosebleeds. Eyes: Negative for visual disturbance. Respiratory: Negative for cough, shortness of breath and wheezing. Cardiovascular: Negative for chest pain, palpitations and leg swelling. Gastrointestinal: Negative for abdominal pain, blood in stool, constipation, diarrhea, nausea and vomiting. Genitourinary: Negative for hematuria. Musculoskeletal: Negative for myalgias. Skin: Negative for rash. Neurological: Negative for dizziness and syncope. Hematological: Does not bruise/bleed easily. Psychiatric/Behavioral: Negative for dysphoric mood and suicidal ideas. Denies Depression Physical Exam: Physical Exam Constitutional: General: She is not in acute distress. Appearance: Normal appearance. She is well-developed. She is not diaphoretic. HENT: Mouth/Throat: Pharynx: No oropharyngeal exudate. Eyes: General: No scleral icterus. Right eye: No discharge. Left eye: No discharge. Neck: Thyroid: No thyromegaly. Vascular: No JVD. Cardiovascular: Rate and Rhythm: Normal rate and regular rhythm. Chest Wall: PMI is not displaced. Pulses: Normal pulses. Heart sounds: Normal heart sounds. No murmur heard. No gallop. Pulmonary: Effort: No accessory muscle usage or respiratory distress. Breath sounds: Normal breath sounds. Abdominal: General: Bowel sounds are normal. There is no distension or abdominal bruit. Palpations: Abdomen is soft. There is no shifting dullness or hepatomegaly. Tenderness: There is no abdominal tenderness. Musculoskeletal: General: Normal range of motion. Skin: General: Skin is warm and dry. Comments: Right radial site D&I, without hematoma or ecchymosis. Pulse 2+, good sensation. Band still applied. Neurological: Mental Status: She is alert and oriented to person, place, and time. Vitals: 04/29/21 1115 04/29/21 1130 04/29/21 1145 04/29/21 1200 BP: (!) 133/59 127/68 114/63 (!) 126/57 Pulse: 84 86 83 90 Resp: Temp: TempSrc: SpO2: 98% 98% 97% 97% Weight: Height: Reason for Admission: staged PCI Consultants: Cardiac rehab HOSPITAL ADMISSION PROBLEM LIST: Patient Active Problem List Diagnosis NSTEMI (non-ST elevated myocardial infarction) (HCC) Adrenal adenoma Arthritis Congestive heart failure (HCC) Diabetes mellitus (HCC) History of back problems History of ovarian cancer Ischemic cardiomyopathy Acute systolic (congestive) heart failure (HCC) Tobacco abuse Other hyperlipidemia 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 Procedures: Cath Summary Final report pending Verbal report - JESUS LCx HOSPITAL COURSE : Ms. Hatch is a 70-year-old female with a history of type 2 diabetes, hypertension, and hyperlipidemia who presented to [facility] ED with a chief complaint of shortness of breath, was found to have triple-vessel coronary artery disease and new onset ischemic cardiomyopathy (left anterior descending territory infarction). Initially felt that she may benefit from bypass surgery. She had no viability in the territory of the distal left anterior descending, the decision was made for her to undergo staged PCI. She underwent PCI to the left anterior descending with Dr. Minor and was placed her on guideline directed medical therapy. She saw Dr. Stubbs outpatient and was doing well with some QUINONEZ, fatigue, and dizziness. She presented to [facility] today and underwent PCI LCx by Dr. Minor without complication. Final report pending. She feels well without CP, SOB, vision/speech changes. VSS. EKG with new T wave inversions V1, V2, V3, V6. Plan for same day PCI today if remains stable. Advised her to have family stay overnight. Ordered outpt labs. No med changes other than hold metformin x 48 hours. She requests to see Dr. Stubbs if having to drive up from [place], so his appt in May was moved up to in one week. Provided RTW slip for 05/05/21. Last Labs: Lab Results Component Value Date WBC 8.8 04/09/2021 HGB 12.8 04/09/2021 HCT 38.8 04/09/2021 MCV 84.8 04/09/2021 PLT 184 04/09/2021 Lab Results Component Value Date NA 135 04/18/2021 K 4.5 04/18/2021 CL 104 04/18/2021 CO2 23.0 04/18/2021 BUN 34 04/18/2021 CREATININE 1.51 04/18/2021 GLUCOSE 63 04/18/2021 CALCIUM 10.0 04/18/2021 Lab Results Component Value Date CHOL 169 04/04/2021 Lab Results Component Value Date TRIG 236 (A) 04/04/2021 Lab Results Component Value Date HDL 33 (L) 04/04/2021 Lab Results Component Value Date LDLCHOLESTEROL 89 04/04/2021 Final Principle Discharge Diagnosis: 1. CAD s/p JESUS LAD 04/08/21 and now s/p JESUS LCx 04/29/21 - Stable. Denies CP or SOB. VSS. EKG with new T wave inversions, will d/w Dr. Minor. Ordered labs to be done in 5 days. Plan for same day PCI discharge if remains stable, advised her to have family stay overnight as precaution. No new meds. Hold metformin x 48 hrs. Continue DAPT with ASA/ticagrelor, BB, ARB, statin, PPI. Refer to cardiac rehab. Advised to continue ASA 81mg daily lifelong without interruption and ticagrelor 90mg PO BID for at least 1 year without interruption. Discharge instructions, medications, restrictions, and follow up appt reviewed and verbalized understanding. She was instructed to inform office if: has any difficulty obtaining Rx or if this becomes a financial burden or if anyone asks to hold ASA or Brilinta. Patient and family both verbalized understanding. Secondary Discharge diagnosis: 2. HFrEF - Compensated. NYHA I. Denies SOB. Continue carvedilol, losartan, spironolactone, jardiance. (Did not tolerate entresto outpt). 3. DM2 - Hold metformin x 48 hours. Is also on insulin, glimepiride, and jardiance. Discharge Medications: Indira Hatch Home Medication Instructions MAE:[id number] Printed on:04/29/21 0779 Medication Information aspirin 81 MG EC tablet Take 1 tablet by mouth daily carvedilol (COREG) 12.5 MG tablet Take 1 tablet by mouth 2 times daily (with meals) empagliflozin (JARDIANCE) 10 MG tablet Take 1 tablet by mouth daily glimepiride (AMARYL) 4 MG tablet Take 4 mg by mouth every morning (before breakfast) Insulin Aspart (NOVOLOG SC) Inject 45 Units into the skin Daily with supper insulin glargine (LANTUS) 100 UNIT/ML injection vial Inject 50 Units into the skin every morning losartan (COZAAR) 50 MG tablet Take 1 tablet by mouth daily magnesium oxide (MAG-OX) 400 MG tablet Take 400 mg by mouth daily metFORMIN (GLUCOPHAGE) 1000 MG tablet Take 1 tablet by mouth 2 times daily (with meals) HOLD UNTIL WednesdayAPRIL 11, THEN RESTART nitroGLYCERIN (NITROSTAT) 0.[address] 1 tablet under the tongue every 5 minutes as needed for Chest pain up to max of 3 total doses. If no relief after 1 dose, call 911. pantoprazole (PROTONIX) 40 MG tablet Take 1 tablet by mouth every morning (before breakfast) rosuvastatin (CRESTOR) 40 MG tablet Take 1 tablet by mouth nightly spironolactone (ALDACTONE) 25 MG tablet Take 1 tablet by mouth daily ticagrelor (BRILINTA) 90 MG TABS tablet Take 1 tablet by mouth 2 times daily vitamin D3 (CHOLECALCIFEROL) 10 MCG (400 UNIT) TABS tablet Take 400 Units by mouth daily ICD Registry Information/AMI Registry Information NYHA Functional Classification: Class I Medical Therapy Aspirin: Yes If NO reason for omission XUAN/ARB: Yes If NO reason for omission Statin:Yes If NO reason for omission Beta Laurel:Yes If NO reason for omission P2Y12 Inhibitors :Yes If NO reason for omission Aldosterone inhibitor :Yes If NO reason for omission Cardiac rehab Yes If NO reason for omission Cardiac Rehab The Cardiac Rehabilitation Team at [facility] consists of highly skilled healthcare professionals, including nurses, physicians, and exercise physiologists all working together to help you return to a healthy, and active lifestyle. As a survivor of heart disease the program is designed to answer all of your questions about the disease through education, activity, monitored exercise, diet modification, and medication adherence. This program is proven to reduce reoccurrence of heart disease and reduce readmission. It is important for you to enroll in the program by attending orientation. For any questions regarding this valuable service please call # [phone] Orientation is available on all Wednesdays at 11:30 am location in the [address] BMI Classification: Obese (BMI 30.0-39.9) DIET: A lowfat, low cholesterol diet was discussed with the patient. Discharge to Home Condition at Discharge: good Follow up with cardiology Dr. Stubbs 05/08/21 at 10:45AM If any questions call [facility] office [phone] Total time spent for Discharge time greater than 60 minutes Associated attestation - Adriana Minor MD - 04/29/2021 3:24 PM EDT I, Dr. Adriana Minor, saw and evaluated the patient on 04/29/2021. I personally obtained the obrien and critical portions of the history and physical exam. I reviewed the labs, imaging studies, and electronic medical record. I reviewed the TRAY SETTER's documentation, and discussed the patient with the TRAY SETTER. I agree with the TRAY SETTER's medical decision making and have edited the note to reflect my clinical findings and my assessment and plan. Stable s/p PCI of Lcx/OM with 2 JESUS. Widely patent stents of prox-midLAD and patent dominant RCA with mild-moderate diffuse CAD. Continue current meds including asa/brilinta, and plan f/u with Dr. Stubbs. Plan to reassess EF by echo in 90days. Adriana Minor MD documented in this encounter [facility] Work Phone: 04-09-2021 Note Discharge Summary Indira Hatch : 1950 ADMIT DATE: 04/04/2021 DISCHARGE DATE: 04/09/2021 PRIMARY CARE PHYSICIAN: CHERIE DELUCA VISIT STATUS: Admission CODE STATUS: Full Code DISCHARGE DIAGNOSES: Principal Problem: NSTEMI (non-ST elevated myocardial infarction) (HCC) Active Problems: Ischemic cardiomyopathy Acute systolic (congestive) heart failure (HCC) Tobacco abuse Other hyperlipidemia Diabetes mellitus (HCC) Resolved Problems: * No resolved hospital problems. * Non-ST elevation myocardial infarction triple-vessel coronary artery disease ischemic cardiomyopathy diabetes type with hyperglycemia history of ovarian cancer Obesity HOSPITAL COURSE: Patient is a 70-year-old female history of diabetes, smoking admitted to [facility] with acute systolic heart failure andST elevation myocardial infarction. Patient admitted to CCU was initially on BiPAP, wean to nasal cannula oxygen. Cardiac catheterization reported multiple vessel disease. Patient was recommended coronary artery bypass graft hence transferred here. Patient seen by a CTS surgery. Underwent cardiac magnetic resonance imaging. Cardiology and CT surgery discussed, decided on PCI at stages. Ejection fraction of 35%. Underwent PCI to left anterior descending 04/08 patient will have staged procedure and couple weeks as outpatient. Patient on aspirin, Brilinta, Crestor and beta laurel. Patient post PTCA has remained hemodynamically stable no chest pain shortness of breath. Vital signs reviewed stable lungs clear bilaterally heart S1-S2 normal abdomen soft nontender bowel sounds present no leg edema bilaterally patient discharged by cardiology service. Medications as prescribed by cardiology. Follow-up with PCP. Activity restrictions as instructed by [facility] SIGNIFICANT DIAGNOSTIC STUDIES: Magnetic resonance imaging cardiac, cardiac catheterization CONSULTANTS: Cardiology, critical care DISCHARGE MEDICATIONS: Indira Hatch Home Medication Instructions MAE:[id number] Printed on:04/09/21 1225 Medication Information aspirin 81 MG EC tablet Take 1 tablet by mouth daily carvedilol (COREG) 12.5 MG tablet Take 1 tablet by mouth 2 times daily (with meals) glimepiride (AMARYL) 4 MG tablet Take 4 mg by mouth every morning (before breakfast) Insulin Aspart (NOVOLOG SC) Inject 45 Units into the skin Daily with supper insulin glargine (LANTUS) 100 UNIT/ML injection vial Inject 50 Units into the skin every morning magnesium oxide (MAG-OX) 400 MG tablet Take 400 mg by mouth daily metFORMIN (GLUCOPHAGE) 1000 MG tablet Take 1 tablet by mouth 2 times daily (with meals) HOLD UNTIL WednesdayAPRIL 11, THEN RESTART nitroGLYCERIN (NITROSTAT) 0.[address] 1 tablet under the tongue every 5 minutes as needed for Chest pain up to max of 3 total doses. If no relief after 1 dose, call 911. pantoprazole (PROTONIX) 40 MG tablet Take 1 tablet by mouth every morning (before breakfast) rosuvastatin (CRESTOR) 40 MG tablet Take 1 tablet by mouth nightly sacubitril-valsartan (ENTRESTO) 24-26 MG per tablet Take 1 tablet by mouth 2 times daily spironolactone (ALDACTONE) 25 MG tablet Take 1 tablet by mouth daily ticagrelor (BRILINTA) 90 MG TABS tablet Take 1 tablet by mouth 2 times daily vitamin D3 (CHOLECALCIFEROL) 10 MCG (400 UNIT) TABS tablet Take 400 Units by mouth daily DIET: DIET CARDIAC; ACTIVITY: No heavy lifting. up with assist COMPLEXITY OF FOLLOW UP: [] Moderate Complexity: follow up within 7-14 calendar days (56124) [] Severe Complexity: follow up within 7 calendar days (06574) FOLLOW UP TESTING, PENDING RESULTS OR REFERRALS AT TRANSITIONAL CARE VISIT: [] Yes [] No PENDING STUDIES: No DISPOSITION: Home FACILITY/HOME CARE AGENCY NAME: Follow up with Johnathan Stubbs MD [address] [place] [id number] On 04/15/2021 Time at 2:00 pm on INSTRUCTIONS TO MA/SW: Please call patient on day after discharge (must document patient contacted within 2 business days of discharge). FOLLOW UP QUESTIONS FOR MA/SW: 1. Did you get medications filled and taking them as instructed from discharge? 2. Are you following your discharge instructions from your hospital stay? 3. Please confirm patient is scheduled for a follow up appointment within the above time frame. DISCHARGE TIME: > 30 minutes SIGNED: OZZIE CAMARGO MD 04/09/2021, 12:25 PM [facility] 04-09-2021 History of Presen t illness Narrative Heart Failure Progress Note SUBJECTIVE: Indira Hatch 70 y.o. Seen and examined Feels well PCI yesterday, no issues - complications. Ready to go home today, no new symptoms to report. Tele SR SCHEDULED MEDICATIONS: sacubitril-valsartan 1 tablet Oral BID sodium chloride flush 5-40 mL Intravenous 2 times per day ticagrelor 90 mg Oral BID pantoprazole 40 mg Oral QAM AC [Held by provider] dapagliflozin 10 mg Oral QAM rosuvastatin 40 mg Oral Nightly enoxaparin 40 mg Subcutaneous Daily carvedilol 12.5 mg Oral BID WC spironolactone 25 mg Oral Daily sodium chloride flush 5-40 mL Intravenous 2 times per day aspirin 81 mg Oral Daily insulin lispro 0-6 Units Subcutaneous TID WC insulin lispro 0-3 Units Subcutaneous Nightly insulin glargine 50 Units Subcutaneous Daily REVIEW OF SYSTEMS: Review of Systems Constitutional: Negative for chills and fever. HENT: Negative for congestion, postnasal drip, sinus pressure, sinus pain and sore throat. Eyes: Negative for photophobia and visual disturbance. Respiratory: Negative for cough, shortness of breath and wheezing. Cardiovascular: Negative for chest pain, palpitations and leg swelling. Gastrointestinal: Negative for abdominal pain, blood in stool, constipation, diarrhea, nausea and vomiting. Endocrine: Negative for polydipsia and polyuria. Genitourinary: Negative for dysuria and hematuria. Musculoskeletal: Negative for arthralgias, back pain and myalgias. Skin: Negative for pallor and rash. Neurological: Negative for dizziness, syncope, weakness, light-headedness and headaches. Hematological: Negative for adenopathy. Does not bruise/bleed easily. Psychiatric/Behavioral: Negative for confusion and dysphoric mood. The patient is not nervous/anxious. VITAL SIGNS:BP (!) 119/55 Pulse 81 Temp 96.6 F (35.9 C) (Temporal) Resp 18 Ht 5' 5 (1.651 m) Wt 193 lb 11.2 oz (87.9 kg) SpO2 98% BMI 32.23 kg/m Admission weight: 197 lb 3.2 oz (89.4 kg) Patient Vitals for the past 96 hrs (Last 3 readings): Weight 04/09/21 0253 193 lb 11.2 oz (87.9 kg) 04/08/21 0600 198 lb 10.2 oz (90.1 kg) PHYSICAL EXAMINATION: Physical Exam Vitals signs and nursing note reviewed. Constitutional: General: She is not in acute distress. Appearance: Normal appearance. She is well-developed. She is not ill-appearing, toxic-appearing or diaphoretic. HENT: Head: Normocephalic and atraumatic. Right Ear: External ear normal. Left Ear: External ear normal. Nose: Nose normal. No rhinorrhea. Mouth/Throat: Mouth: Mucous membranes are moist. Pharynx: Oropharynx is clear. No oropharyngeal exudate or posterior oropharyngeal erythema. Eyes: General: No scleral icterus. Right eye: No discharge. Left eye: No discharge. Extraocular Movements: Extraocular movements intact. Conjunctiva/sclera: Conjunctivae normal. Pupils: Pupils are equal, round, and reactive to light. Neck: Musculoskeletal: Normal range of motion and neck supple. Thyroid: No thyromegaly. Vascular: No JVD. Cardiovascular: Rate and Rhythm: Normal rate and regular rhythm. Pulses: Normal pulses. Radial pulses are 2+ on the right side and 2+ on the left side. Heart sounds: Normal heart sounds, S1 normal and S2 normal. No murmur. No friction rub. No gallop. No S3 or S4 sounds. Pulmonary: Effort: Pulmonary effort is normal. No tachypnea or respiratory distress. Breath sounds: Normal breath sounds. No wheezing, rhonchi or rales. Abdominal: General: Abdomen is flat. Bowel sounds are normal. There is no distension. Palpations: Abdomen is soft. There is no hepatomegaly or mass. Tenderness: There is no abdominal tenderness. There is no guarding. Musculoskeletal: General: No swelling or tenderness. Right lower leg: No edema. Left lower leg: No edema. Skin: General: Skin is warm and dry. Coloration: Skin is not jaundiced. Findings: No abrasion, erythema or rash. Neurological: General: No focal deficit present. Mental Status: She is alert and oriented to person, place, and time. Mental status is at baseline. Sensory: No sensory deficit. Motor: No weakness or seizure activity. Psychiatric: Attention and Perception: Attention and perception normal. Mood and Affect: Mood and affect normal. Behavior: Behavior normal. Thought Content: Thought content normal. Judgment: Judgment normal. Data: Scheduled Meds: Reviewed Continuous Infusions: sodium chloride sodium chloride dextrose Intake/Output Summary (Last 24 hours) at 04/09/2021 1047 Last data filed at 04/09/2021 0605 Gross per 24 hour Intake 510 ml Output 650 ml Net -140 ml CBC: Recent Labs 04/08/21 0030 04/09/21251 WBC 8.0 8.8 HGB 11.9 12.8 HCT 36.1 38.8 PLT 173 184 BMP: Recent Labs 04/08/212904/09/21251 NA 139 138 K 4.5 4.3 CL 104 104 CO2 25 23 BUN 21* 22* CREATININE 0.85 0.85 Liver: Recent Labs 04/09/21251 AST 37 ALT 31 ALKPHOS 45 PROT 7.6 LABALBU 4.3 BILITOT 1.5* ABGs: No results found for: PH, PO2, PCO2 : No results for input(s): INR in the last 72 hours. PRO-BNP: No results found for: NTPROBNP TROPONIN: Lab Results Component Value Date/Time TROPONINI 2.520 (H) 04/05/2021 12:00 AM TROPONINI 3.040 (H) 04/04/2021 08:14 PM TSH: Lab Results Component Value Date TSH 2.269 04/04/2021 Cardiac Injury Profile: No results for input(s): CKTOTAL, CKMB, TROPONINI in the last 72 hours. Profile: Lab Results Component Value Date TRIG 236 04/04/2021 HDL 33 04/04/2021 CHOL 169 04/04/2021 Hemoglobin A1C: No components found for: HGBA1C ANATITER: No results for input(s): ANATITER in the last 72 hours. HIV:No results for input(s): HIV1X2 in the last 72 hours. Ferritin:No results for input(s): FERRITIN in the last 72 hours. Digoxin levelNo results for input(s): DIGOXIN in the last 72 hours. EKG: See Report Echo: See Report IMPRESSIONS: Principal Problem: NSTEMI (non-ST elevated myocardial infarction) (HCC) Active Problems: Ischemic cardiomyopathy Acute systolic (congestive) heart failure (HCC) Tobacco abuse Other hyperlipidemia Diabetes mellitus (HCC) Resolved Problems: * No resolved hospital problems. * RECOMMENDATIONS: 1. HFrEF EF 35%. Ischemic. New Diagnosis. Not in Acute Decompensation. ACC AHA Stage C [facility] FC IIIA. Etiology : Ischemic. PCI to LAD 04/08/21. Outpatient staged procedure in a couple weeks. Volume : euvolemic, not on diuretics GDMT : Coreg 12.5mg BID, Spironolactone 25mg qd, [id number] qd, entresto 24/26mg BID 2. CAD. Severe. Multivessel. LAD PCI 04/08/21. ASA 81mg qd, Ticagrelor 90mg BID, Crestor 40mg qd. BB as above. She will follow up with HF Clinic at [facility]. HF service will sign off, please call with any questions. HF Education: Living with Heart Failure, Low Salt Diet, Fluid Restriction and Daily Weights I, Dr. Johnathan Stubbs, saw and evaluated the patient. I personally obtained the obrien and critical portions of the history and physical exam. I reviewed the chart, the fellow's documentation, and discussed the patient with the fellow. I agree with the fellow's medical decision making and have edited the note to reflect my clinical findings and my assessment and plan. In summary, Ms. Hatch is a 70-year-old female with a history of type 2 diabetes, hypertension, and hyperlipidemia who presented to [facility] ED with a chief complaint of shortness of breath. Left heart catheterization showed triple-vessel coronary artery disease, most severe in the LAD. As stated before, her transthoracic echocardiogram here showed left ventricular ejection fraction 36% and a cardiac MRI showed scar in the anterior wall and 16% and ejection fraction 35%. after discussion with Dr. Fernando, and Dr. Minor, the decision was made to pursue PCI and medical therapy for her ischemic cardio myopathy. She is now status post PCI to the left anterior descending which was successful, and she will return in a few weeks for a staged PCI to the RCA and the circumflex. From the standpoint of her ischemic cardiomyopathy she is on quadruple therapy with carvedilol, Entresto, spironolactone, and dapagliflozin. We will have her return April 29 for further medication management. She can be discharged home. Please do not hesitate to call with any questions. Johnathan Stubbs MD, PhD Advanced Heart Failure Cardiology [facility]. [facility] 11:15 AM 04/09/21 INTERVENTIONAL CARDIOLOGY PROGRESS NOTE Chart and interval events reviewed. Reason for Visit NSTEMI/CAD SUBJECTIVE: Indira Hatch states denies any CP, SOB, orthopnea, PND, palpitations, syncope, bleeding. She is ready for discharge. SCHEDULEDMEDICATIONS: sacubitril-valsartan 1 tablet Oral BID sodium chloride flush 5-40 mL Intravenous 2 times per day ticagrelor 90 mg Oral BID pantoprazole 40 mg Oral QAM AC [Held by provider] dapagliflozin 10 mg Oral QAM rosuvastatin 40 mg Oral Nightly enoxaparin 40 mg Subcutaneous Daily carvedilol 12.5 mg Oral BID WC spironolactone 25 mg Oral Daily sodium chloride flush 5-40 mL Intravenous 2 times per day aspirin 81 mg Oral Daily insulin lispro 0-6 Units Subcutaneous TID WC insulin lispro 0-3 Units Subcutaneous Nightly insulin glargine 50 Units Subcutaneous Daily Principal Problem: NSTEMI (non-ST elevated myocardial infarction) (HCC) Active Problems: Ischemic cardiomyopathy Acute systolic (congestive) heart failure (HCC) Tobacco abuse Other hyperlipidemia Diabetes mellitus (HCC) Resolved Problems: * No resolved hospital problems. * Review of Systems: Review of Systems Constitutional: Negative for chills, fatigue, fever and unexpected weight change. Respiratory: Negative for cough, chest tightness and shortness of breath. Cardiovascular: Negative for chest pain, palpitations and leg swelling. Gastrointestinal: Negative for abdominal distention and abdominal pain. Endocrine: Negative for cold intolerance. Genitourinary: Negative for difficulty urinating. Musculoskeletal: Negative for back pain and gait problem. Skin: Negative for color change. Neurological: Negative for dizziness, weakness, numbness and headaches. Psychiatric/Behavioral: Negative for behavioral problems. SIGNS: Vitals: 04/08/21 1918 04/08/21 2303 04/09/21 0253 04/09/21 0722 BP: (!) 95/43 106/63 (!) 89/57 (!) 119/55 Pulse: 77 82 80 81 Resp: 16 25 18 18 Temp: 97.7 F (36.5 C) 97.9 F (36.6 C) 97.9 F (36.6 C) 96.6 F (35.9 C) TempSrc: Temporal Temporal Temporal Temporal SpO2: 99% 97% 96% 98% Weight: 193 lb 11.2 oz (87.9 kg) Height: Intake/Output Summary (Last 24 hours) at 04/09/2021 0850 Last data filed at 04/09/2021 0605 Gross per 24 hour Intake 510 ml Output 650 ml Net -140 ml Patient Vitals for the past 96 hrs (Last 3 readings): Weight 04/09/21 0253 193 lb 11.2 oz (87.9 kg) 04/08/21 0600 198 lb 10.2 oz (90.1 kg) Physical Exam: Physical Exam Vitals signs reviewed. Constitutional: General: She is not in acute distress. Appearance: Normal appearance. She is well-developed. She is not diaphoretic. HENT: Mouth/Throat: Pharynx: No oropharyngeal exudate. Eyes: General: No scleral icterus. Right eye: No discharge. Left eye: No discharge. Neck: Thyroid: No thyromegaly. Vascular: No JVD. Cardiovascular: Rate and Rhythm: Normal rate and regular rhythm. Chest Wall: PMI is not displaced. Pulses: Normal pulses. Heart sounds: Normal heart sounds. No murmur. No gallop. Comments: Right radial wrist site without bleeding, hematoma, swelling. Site is soft. Right radial pulse and right ulnar pulse 2+. Pulmonary: Effort: No accessory muscle usage or respiratory distress. Breath sounds: Normal breath sounds. Abdominal: General: Bowel sounds are normal. There is no distension or abdominal bruit. Palpations: Abdomen is soft. There is no shifting dullness or hepatomegaly. Tenderness: There is no abdominal tenderness. Musculoskeletal: Normal range of motion. Right lower leg: No edema. Left lower leg: No edema. Skin: General: Skin is warm and dry. Neurological: Mental Status: She is alert and oriented to person, place, and time. Data: Scheduled Meds:Reviewed Continuous Infusions: sodium chloride sodium chloride dextrose CBC: Recent Labs 04/08/21 0030 04/09/21251 WBC 8.0 8.8 HGB 11.9 12.8 HCT 36.1 38.8 PLT 173 184 BMP: Recent Labs 04/08/21 0030 04/09/21 0252 NA 139 138 K 4.5 4.3 CL 104 104 CO2 25 23 BUN 21* 22* CREATININE 0.85 0.85 INR: No results for input(s): INR in the last 72 hours. No results for input(s): BNP in the last 72 hours. TSH: Lab Results Component Value Date TSH 2.269 04/04/2021 Cardiac InjuryProfile: No results for input(s): CKTOTAL, CKMB, TROPONINI in the last 72 hours. Lipid Profile: Lab Results Component Value Date TRIG 236 04/04/2021 HDL 33 04/04/2021 CHOL 169 04/04/2021 EK04/09/2021: Sinus rhythm Anterior infarct, old Nonspecific T abnormalities, lateral leads Telemetry Reviewed: SR 80s with PAC, PVC Echo: 04/06/2021: SUMMARY: 1. Left ventricle: There is mild concentric hypertrophy. Systolic function is moderately decreased by the biplane method of disks. The estimated ejection fraction is 36%. 2. Regional wall motion abnormality: Hypokinesis of the mid-apical anterior, mid anteroseptal, apical inferior, apical septal, apical lateral, and apical myocardium. This suggests infarct in the LAD distribution. 3. Mitral valve: Structurally normal valve. There is mild, 1+ regurgitation, directed eccentrically and toward the free wall Cardiac Cath 04/08/2021: IMPRESSIONS: 1. Successful IVUS-guided PCI of heavily calcified proximal-midLAD with CSI atherectomy, extensive PTCA and deployment of 2 overlapped Xience JESUS (3.0x38mm proximal, 2.5x38mm mid), proximally post-dilated with a 3.25mm NC balloon. 2. Severe multifocal stenoses of proximal-mid LCx and proximal OM1. Mild disease of LMCA. 3. Normal LVEDP; no . RECOMMENDATIONS: 1. Tobacco cessation counseling should be done. 2. Patient management should include aggressive risk factor modification. 3. Patient management should include aggressive medical management of CAD and a cardiac rehabilitation program. The patient was counseled regarding the importance of adherence to the prescribed antiplatelet therapy and a low fat diet. 4. Add optimal medical therapy of the patient's CAD and ischemic cardiomyopathy. 5. Add statin therapy. 6. Add beta blockers. 7. Add XUAN inhibitors. 8. Ticagrelor (Brilinta), 90mgPObid, for 12 mon, minimum. 9. Aspirin, 81mgPOdaily, indefinitely. 10. Plan staged PCI of the LCx/OM in a few weeks. Plan to reassess EF in 90days on maximal medical therapy. MRI Myocardium 04/07/21: Findings: LV- Quantitative LVEF 35%. LV cavity size is normal. LV systolic function is moderately reduced with akinesis of mid anteroseptal wall and hypokinesis of the anteroseptal apical wall. moderate thinning of the mid anteroseptal wall. VIABILITY: Hyperenhancement of mid to apical anteroseptal wall. 16% anteroseptal mid to apex scaring. RV: Quantitative LVEF 51% RV systolic function is normal. RV cavity size is normal. LA/RA SEPTUM: The ventricular septum is intact. LEFT ATRIUM: LA cavity size is normal. RIGHT ATRIUM: RA cavity is normal. PERICARDIUM: Pericardium is normal. No pericardial effusion. No delayed enhancement of pericardium. AORTIC VALVE: Aortic valve leaflets are normal. There is mild aortic regurgitation. There is no aortic stenosis. MITRAL VALVE: Mitral valve leaflets are normal. There is no mitral regurgitation. TRICUSPID VALVE: Tricuspid valve leaflets are normal. There is trace tricuspid regurgitation. PULMONIC VALVE: Pulmonic valve leaflets are normal. No pulmonic regurgitation. AORTIC VALVE: The aortic root is normal. OTHER FINDINGS: Normal first pass perfusion. No evidence of myocardial edema IMPRESSION: Ischemic cardiomyopathy in LAD territory wall thinning and 16% scar. Moderate reduction in systolic function (LVEF= 35%). Mild aortic valve regurgitation. IMPRESSIONS/RECOMMENDATIONS: 1. ACS/NSTEMI s/p PCI to prox-mid LAD with CSI atherectomy, PTCA Stable, will need staged PCI to prox Cx and prox OM in 2-3 weeks. Severe multifocal stenoses of proximal-mid LCx and proximal OM1. Continue DAPT- ASA, brilinta for 1 year uninterrupted, ASA lifetime. Continue statin, beta laurel, PPI. Reviewed all medications, scripts sent to [facility]. 2. HFrEF, EF 35%, ischemic cardiomyopathy. Stable, continue coreg, spironolactone, entresto. Educated on daily weights. 3. Tobacco use Discussed complete cessation. She states she will quit. 4. DM2 Continue insulin. Instructed to hold metformin for 48 hours, restart on Wednesday. Patient educated on post PCI discharge activity, cath site care, medications, cardiac rehab, follow up care. Patient has follow up next week on April 15. Needs staged PCI to Lcx in 2-[address] Minor. [facility] is primary team and will be completing discharge. Update per perfect serve today with IMS Dr. Camargo. Pt s/p PCI LAD. Just arrived to room and feels well. Denies CP, SOB, vision/speech changes, or SAMUELS. Radial site stable, pulse 2+, no hematoma or ecchymosis, good sensation. Ordered EKG. Dr. Minor at bedside talking with family, explained possible discharge tomorrow or the next day. She will need f/u appt in our office in 1 week and then scheduled for staged PCI LCX in 2-3 weeks with him. They verbalized understanding. Images from the original note were not included. [facility] Cardiothoracic Brief Note Name: Indira Hatch Date of : 1950 04/08/21; 10:[address] Babcock is reviewing the MRI and recent cath films - feels confident about grafting to the the LAD, OM1/2 seq, RCA - will discuss with Dr. Stubbs the results of the MRI EF 52% and 16% scar burden Brayden Young [facility] Please perfect serve me for any patient needs or call me directly at [phone] Images from the original note were not included. Hospitalist Progress Note 04/08/2021 10:01 AM [phone]: Please page me for patient care issues. [phone]: Please page [facility]MS night Hospitalist for any issues. Subjective: Admit Date: 04/04/2021 PCP: No primary care provider on file. Room#: 130/H81319 Interval History: Patient seen and examined, I was wearing N95 mask throughout the patient encounter No new event overnight patient denies chest pain. No shortness of breath. Discussed with nursing. Patient is n.p.o. for possible cardiac catheterization and PCI Diet NPO, After Midnight Exceptions are: Sips of Water with Meds Patient Vitals for the past 96 hrs (Last 3 readings): Weight 04/08/21 0600 198 lb 10.2 oz (90.1 kg) 04/04/21 1850 197 lb 3.2 oz (89.4 kg) Medications: sodium chloride dextrose [Held by provider] dapagliflozin 10 mg Oral QAM rosuvastatin 40 mg Oral Nightly enoxaparin 40 mg Subcutaneous Daily carvedilol 12.5 mg Oral BID WC spironolactone 25 mg Oral Daily sodium chloride flush 5-40 mL Intravenous 2 times per day aspirin 81 mg Oral Daily insulin lispro 0-6 Units Subcutaneous TID WC insulin lispro 0-3 Units Subcutaneous Nightly insulin glargine 50 Units Subcutaneous Daily LABS: CBC: Recent Labs 04/06/21 0616 04/07/2115804/08/21 0030 WBC 6.4 6.9 8.0 RBC 4.15 3.99 4.22 HGB 11.7 11.1* 11.9 HCT 34.7* 33.3* 36.1 MCV 83.6 83.4 85.6 RDW 15.0* 15.2* 15.6* PLT 162 162 173 BMP: Recent Labs 04/06/21 0616 04/07/21 0159 04/08/21 0030 NA 135 137 139 K 4.1 4.0 4.5 CL 103 107 104 CO2 26 25 25 BUN 17 17 21* CREATININE 0.65 0.66 0.85 GLUCOSE 159* 136* 133* CALCIUM 9.4 9.5 10.2 ANIONGAP 6 6 10 LIVER PROFILE: No results for input(s): AST, ALT, BILITOT, ALKPHOS, LABALBU, PROT in the last 72 hours. PT/INR: No results for input(s): PROTIME, INR in the last 72 hours. CARDIAC ENZYMES: No results for input(s): TROPONINI in the last 72 hours. Procalcitonin: Lab Results Component Value Date PROCAL <0.10 04/05/2021 Objective: Vitals: BP 120/75 Pulse 92 Temp 97 F (36.1 C) (Temporal) Resp 16 Ht 5' 5 (1.651 m) Wt 198 lb 10.2 oz (90.1 kg) SpO2 96% BMI 33.05 kg/m Pulse Ox: SpO2 Av.5 % Min: 95 % Max: 98 % Supplemental O2: General appearance: No apparent distress, HEENT: Eyes: No scleral icterus No pallor Oral: Tongue is semi-moist Cardiovascular: S1S2 heard, RRR Respiratory: Clear to auscultation bilaterally Abdomen: Soft, non-tender, non-distended with normal bowel sounds. Musculoskeletal: No obvious deformities seen Skin: No visible rashes or lesions. Neurology- no focal neurology,Awake alert Extremity- no peripheral edema both lower extremities left antecubital fossa, tiny erythematous spot seen at the IV line, nontender and no active discharge Assessment Non-ST elevation myocardial infarction triple-vessel coronary artery disease ischemic cardiomyopathy diabetes type 2 history of ovarian cancer obesity Plan Heparin drip was discontinued post 48 hours on aspirin, Crestor ejection fraction of 36% cardiac magnetic resonance imaging results noted for cardiac catheterization today for pci continue home Lantus insulin hold [facility], as patient going to be n.p.o. continue sliding scale insulin on Lovenox for deep vein thrombosis prophylaxis Labs ordered for AM Patient was informed about all work up and treatment plan Discussed with nursing staff Advance Directive: Full Code Discharge planning: OZZIE CAMARGO MD Division of Hospitalist Medicine Inpatient Medical Services PAGER: [phone] Heart Failure Progress Note SUBJECTIVE: Indira Juan Hatch 70 y.o. F Seen and examined Feels well, anxious on CMRI results. No new events or symptoms to report. SCHEDULED MEDICATIONS: [Held by provider] dapagliflozin 10 mg Oral QAM rosuvastatin 40 mg Oral Nightly enoxaparin 40 mg Subcutaneous Daily carvedilol 12.5 mg Oral BID WC spironolactone 25 mg Oral Daily sodium chloride flush 5-40 mL Intravenous 2 times per day aspirin 81 mg Oral Daily insulin lispro 0-6 Units Subcutaneous TID insulin lispro 0-3 Units Subcutaneous Nightly insulin glargine 50 Units Subcutaneous Daily REVIEW OF SYSTEMS: Review of Systems Constitutional: Negative for chills and fever. HENT: Negative for congestion, postnasal drip, sinus pressure, sinus pain and sore throat. Eyes: Negative for photophobia and visual disturbance. Respiratory: Negative for cough, shortness of breath and wheezing. Cardiovascular: Negative for chest pain, palpitations and leg swelling. Gastrointestinal: Negative for abdominal pain, blood in stool, constipation, diarrhea, nausea and vomiting. Endocrine: Negative for polydipsia and polyuria. Genitourinary: Negative for dysuria and hematuria. Musculoskeletal: Negative for arthralgias, back pain and myalgias. Skin: Negative for pallor and rash. Neurological: Negative for dizziness, syncope, weakness, light-headedness and headaches. Hematological: Negative for adenopathy. Does not bruise/bleed easily. Psychiatric/Behavioral: Negative for confusion and dysphoric mood. The patient is not nervous/anxious. VITAL SIGNS:BP 120/75 Pulse 92 Temp 97 F (36.1 C) (Temporal) Resp 16 Ht 5' 5 (1.651 m) Wt 198 lb 10.2 oz (90.1 kg) SpO2 96% BMI 33.05 kg/m Admission weight: 197 lb 3.2 oz (89.4 kg) Patient Vitals for the past 96 hrs (Last 3 readings): Weight 04/08/21 0600 198 lb 10.2 oz (90.1 kg) 04/04/21 1850 197 lb 3.2 oz (89.4 kg) PHYSICAL EXAMINATION: Physical Exam Vitals signs and nursing note reviewed. Constitutional: General: She is not in acute distress. Appearance: She is well-developed. She is not ill-appearing or diaphoretic. HENT: Head: Normocephalic and atraumatic. Right Ear: External ear normal. Left Ear: External ear normal. Nose: Nose normal. No rhinorrhea. Mouth/Throat: Mouth: Mucous membranes are moist. Pharynx: Oropharynx is clear. No oropharyngeal exudate. Eyes: General: Right eye: No discharge. Left eye: No discharge. Conjunctiva/sclera: Conjunctivae normal. Pupils: Pupils are equal, round, and reactive to light. Neck: Musculoskeletal: Normal range of motion and neck supple. Thyroid: No thyromegaly. Vascular: No JVD. Cardiovascular: Rate and Rhythm: Normal rate and regular rhythm. Pulses: Normal pulses. Heart sounds: Normal heart sounds. No murmur. No friction rub. No gallop. Pulmonary: Effort: Pulmonary effort is normal. No respiratory distress. Breath sounds: Normal breath sounds. No wheezing or rales. Abdominal: General: Bowel sounds are normal. There is no distension. Palpations: Abdomen is soft. There is no mass. Tenderness: There is no abdominal tenderness. There is no guarding. Musculoskeletal: General: No swelling or tenderness. Right lower leg: No edema. Left lower leg: No edema. Skin: General: Skin is warm and dry. Findings: No erythema or rash. Neurological: General: No focal deficit present. Mental Status: She is alert and oriented to person, place, and time. Psychiatric: Behavior: Behavior normal. Thought Content: Thought content normal. Judgment: Judgment normal. Data: Scheduled Meds: Reviewed Continuous Infusions: sodium chloride dextrose Intake/Output Summary (Last 24 hours) at 04/08/2021 1001 Last data filed at 04/08/2021 0809 Gross per 24 hour Intake 840 ml Output 500 ml Net 340 ml CBC: Recent Labs 04/07/21 0159 04/08/21 0030 WBC 6.9 8.0 HGB 11.1* 11.9 HCT 33.3* 36.1 PLT 162 173 BMP: Recent Labs 04/07/21 0159 04/08/21 0030 NA 137 139 K 4.0 4.5 CL 107 104 CO2 25 25 BUN 17 21* CREATININE 0.66 0.85 Liver: No results for input(s): AST, ALT, ALKPHOS, PROT, LABALBU, BILITOT in the last 72 hours. Invalid input(s): BILDIR ABGs: No results found for: PH, PO2, PCO2 : No results for input(s): INR in the last 72 hours. PRO-BNP: No results found for: NTPROBNP TROPONIN: Lab Results Component Value Date/Time TROPONINI 2.520 (H) 04/05/2021 12:00 AM TROPONINI 3.040 (H) 04/04/2021 08:14 PM TSH: Lab Results Component Value Date TSH 2.269 04/04/2021 Cardiac Injury Profile: No results for input(s): CKTOTAL, CKMB, TROPONINI in the last 72 hours. Profile: Lab Results Component Value Date TRIG 236 04/04/2021 HDL 33 04/04/2021 CHOL 169 04/04/2021 Hemoglobin A1C: No components found for: HGBA1C ANATITER: No results for input(s): ANATITER in the last 72 hours. HIV:No results for input(s): HIV1X2 in the last 72 hours. Ferritin:No results for input(s): FERRITIN in the last 72 hours. Digoxin levelNo results for input(s): DIGOXIN in the last 72 hours. EKG: See Report Echo: See Report IMPRESSIONS: Principal Problem: NSTEMI (non-ST elevated myocardial infarction) ([facility]) Active Problems: Diabetes mellitus (HCC) Resolved Problems: * No resolved hospital problems. * RECOMMENDATIONS: 1. HFrEF EF 35%. Ischemic. New Diagnosis. Not in Acute Decompensation. ACC AHA Stage C [facility] FC IIIA. Etiology : Ischemic. Cardiac MRI reviewed, joint discussion between CTS/Interventional/HF with patient for CABG vs PCI. Volume : euvolemic, not on diuretics GDMT : Coreg 12.5mg BID, Spironolactone 25mg qd, [id number] qd. Holding XUAN/ARB/ARNI for now until intervention determined. 2. CAD. Severe. Multivessel. ASA 81mg qd, Crestor 40mg qd. BB as above. HF Education: Living with Heart Failure, Low Salt Diet, Fluid Restriction and Daily Weights I, Dr. Johnathan Stubbs, saw and evaluated the patient. I personally obtained the obrien and critical portions of the history and physical exam. I reviewed the chart, the fellow's documentation, and discussed the patient with the fellow. I agree with the fellow's medical decision making and have edited the note to reflect my clinical findings and my assessment and plan. In summary, Ms. Hatch is a 70-year-old female with a history of type 2 diabetes, hypertension, and hyperlipidemia who presented to [facility] ED with a chief complaint of shortness of breath. Left heart catheterization showed triple-vessel coronary artery disease, most severe in the LAD. Yesterday, her echocardiogram suggested left ventricle ejection fraction 36% with WMA in anterior wall. he also underwent a cardiac MRI that showed scar in the anterior wall and 16% and ejection fraction 35%. This is transmural scar, so her improvement with left anterior descending territory revascularization is questionable. I have spoken to Dr. Fernando and we decided to recommend PCI to her circumflex and RCA, with Dr. Minor. We will continue titration of guideline directed medical therapy. We will start Entresto tonight. Likely D/C tomorrow. Johnathan Stubbs MD, PhD Advanced Heart Failure Cardiology [facility]. [facility] [place] 1:18 PM 04/08/21 INTERVENTIONAL CARDIOLOGY PROGRESS NOTE Chart and interval events reviewed. Reason for Visit CAD follow up SUBJECTIVE: Idnira Hatch states she physically feels well but mentally is very upset and worried about possibly needing CABG. She is anxious awaiting input from the teams. Denies CP, SOB, PND, orthopnea, palpitations, dizziness, syncope, bleeding, SAMUELS, or edema. SCHEDULEDMEDICATIONS: [Held by provider] dapagliflozin 10 mg Oral QAM rosuvastatin 40 mg Oral Nightly enoxaparin 40 mg Subcutaneous Daily carvedilol 12.5 mg Oral BID WC spironolactone 25 mg Oral Daily sodium chloride flush 5-40 mL Intravenous 2 times per day aspirin 81 mg Oral Daily insulin lispro 0-6 Units Subcutaneous TID WC insulin lispro 0-3 Units Subcutaneous Nightly insulin glargine 50 Units Subcutaneous Daily Principal Problem: NSTEMI (non-ST elevated myocardial infarction) (HCC) Active Problems: Diabetes mellitus (HCC) Resolved Problems: * No resolved hospital problems. * Review of Systems: Review of Systems Constitutional: Negative for chills, diaphoresis and fever. HENT: Negative for nosebleeds. Eyes: Negative for visual disturbance. Respiratory: Negative for cough, shortness of breath and wheezing. Cardiovascular: Negative for chest pain, palpitations and leg swelling. Gastrointestinal: Negative for abdominal pain, blood in stool, constipation, diarrhea, nausea and vomiting. Genitourinary: Negative for hematuria. Musculoskeletal: Negative for myalgias. Skin: Negative for rash. Neurological: Negative for dizziness and syncope. Hematological: Does not bruise/bleed easily. Psychiatric/Behavioral: Negative for dysphoric mood and suicidal ideas. The patient is nervous/anxious. Denies Depression SIGNS: Vitals: 04/08/21 0000 04/08/21 0400 04/08/21 0600 04/08/21 0704 BP: (!) 128/59 120/75 Pulse: 78 66 92 Resp: 18 16 Temp: 98.1 F (36.7 C) 97 F (36.1 C) TempSrc: Temporal Temporal SpO2: 96% 96% Weight: 198 lb 10.2 oz (90.1 kg) Height: Intake/Output Summary (Last 24 hours) at 04/08/2021 0943 Last data filed at 04/08/2021 0809 Gross per 24 hour Intake 840 ml Output 500 ml Net 340 ml Patient Vitals for the past 96 hrs (Last 3 readings): Weight 04/08/21 0600 198 lb 10.2 oz (90.1 kg) 04/04/21 1850 197 lb 3.2 oz (89.4 kg) Physical Exam: Physical Exam Constitutional: General: She is not in acute distress. Appearance: Normal appearance. She is well-developed. She is obese. She is not diaphoretic. HENT: Mouth/Throat: Pharynx: No oropharyngeal exudate. Eyes: General: No scleral icterus. Right eye: No discharge. Left eye: No discharge. Neck: Thyroid: No thyromegaly. Vascular: No JVD. Cardiovascular: Rate and Rhythm: Normal rate and regular rhythm. Chest Wall: PMI is not displaced. Pulses: Normal pulses. Heart sounds: Normal heart sounds. No murmur. No gallop. Pulmonary: Effort: No accessory muscle usage or respiratory distress. Breath sounds: Normal breath sounds. Abdominal: General: Bowel sounds are normal. There is no distension or abdominal bruit. Palpations: Abdomen is soft. There is no shifting dullness or hepatomegaly. Tenderness: There is no abdominal tenderness. Musculoskeletal: Normal range of motion. Skin: General: Skin is warm and dry. Neurological: Mental Status: She is alert and oriented to person, place, and time. Psychiatric: Mood and Affect: Mood is anxious. Affect is tearful. Data: Scheduled Meds:Reviewed Continuous Infusions: sodium chloride dextrose CBC: Recent Labs 04/07/21 0159 04/08/21 0030 WBC 6.9 8.0 HGB 11.1* 11.9 HCT 33.3* 36.1 PLT 162 173 BMP: Recent Labs 04/07/21 0159 04/08/21 0030 NA 137 139 K 4.0 4.5 CL 107 104 CO2 25 25 BUN 17 21* CREATININE 0.66 0.85 TSH: Lab Results Component Value Date TSH 2.269 04/04/2021 Lipid Profile: Lab Results Component Value Date TRIG 236 04/04/2021 HDL 33 04/04/2021 CHOL 169 04/04/2021 EKG: Unchanged Telemetry Reviewed: SR Echo: 04/04/21 at [facility] LVEF 15%, severe segmental systolic dysfunction, grade 2 diastolic dysfunction. Akinetic apex, mid-anterior, anterior apex; Hypokinetic mid-lateral. PAP systolic = 24 mmHg Repeat Echo 04/06/21: 1. Left ventricle: There is mild concentric hypertrophy. Systolic function is moderately decreased by the biplane method of disks. The estimated ejection fraction is 36%. 2. Regional wall motion abnormality: Hypokinesis of the mid-apical anterior, mid anteroseptal, apical inferior, apical septal, apical lateral, and apical myocardium. This suggests infarct in the LAD distribution. 3. Mitral valve: Structurally normal valve. There is mild, 1+ regurgitation, directed eccentrically and toward the free wall. Last stress test: Not on file Last cardiac catheterization: 90% lesion of LAD with severe disease involving the diagonal branches, 50-60% mid segment disease of LCX with 50-60% mid to distal, and Dominant RCA with moderate 40-50% diffuse stenosis, severe LV systolic dysfunction with LVEF 15-20% with an akinetic anterior wall and apex Cardiac MRI 04/07/21: Findings: LV- Quantitative LVEF 35%. LV cavity size is normal. LV systolic function is moderately reduced with akinesis of mid anteroseptal wall and hypokinesis of the anteroseptal apical wall. moderate thinning of the mid anteroseptal wall. VIABILITY: Hyperenhancement of mid to apical anteroseptal wall. 16% anteroseptal mid to apex scaring. RV: Quantitative LVEF 51% RV systolic function is normal. RV cavity size is normal. LA/RA SEPTUM: The ventricular septum is intact. LEFT ATRIUM: LA cavity size is normal. RIGHT ATRIUM: RA cavity is normal. PERICARDIUM: Pericardium is normal. No pericardial effusion. No delayed enhancement of pericardium. AORTIC VALVE: Aortic valve leaflets are normal. There is mild aortic regurgitation. There is no aortic stenosis. MITRAL VALVE: Mitral valve leaflets are normal. There is no mitral regurgitation. TRICUSPID VALVE: Tricuspid valve leaflets are normal. There is trace tricuspid regurgitation. PULMONIC VALVE: Pulmonic valve leaflets are normal. No pulmonic regurgitation. AORTIC VALVE: The aortic root is normal. OTHER FINDINGS: Normal first pass perfusion. No evidence of myocardial edema. T1 maps- slightly elevated range- 1020 ms Pericardium- normal other- No pleural effusion. IMPRESSION: Ischemic cardiomyopathy in LAD territory wall thinning and 16% scar. Moderate reduction in systolic function (LVEF= 35%). Mild aortic valve regurgitation. IMPRESSIONS/RECOMMENDATIONS: 1. ACS/NSTEMI with multivessel CAD on [facility] with suspicion that VT likely occurred 1-2 weeks prior to presentation - Stable. Denies CP or SOB. MULU score=5 (26% risk), KEYON [id number]. Cardiac MRI as above (viability: Hyperenhancement of mid to apical anteroseptal wall. 16% anteroseptal mid to apex scaring). Dr. Minor to d/w Dr. Hu re: MRI result and then he will d/w Dr. Hay re: CABG vs high risk PCI. Heparin gtt stopped yesterday since post 48 hours. Continue ASA, rosuvastatin, carvedilol. Not currently on ACEi/ARB and awaiting to start depending on if having CABG or not. Provided emotional support to patient. 2. HFrEF 15-20% per LHC, 36% per echo and 35% per cardiac MRI (new) - Stable. NYHA II-III, Stage C. Currently appears euvolemic. I/O not recorded. Etiology likely ischemic. Cardiac MRI done and awaiting decision on CABG vs high risk PCI. No longer on diuretics. Is on carvedilol 12.5mg BID, spironolactone 25mg, dapaglifozin 10mg. Holding ACEi/ARB/ARNI until intervention determined. Will order I/O. HF service is following and managing. 3. Tobacco use - Discussed and she is ready to quit now. 4. Obesity - Recommend weight reduction. 5. FMH CAD in mother and two brothers 6. DM2 - Per primary. 7. MR - 1+ on echo, none on cardiac MRI. Will d/w Dr. Minor. ADDENDUM: Dr. Minor d/w CTS and planned for PCI today. Heart Failure Progress Note SUBJECTIVE: Indira Hatch 70 y.o. F Seen and examined, feels well today. No overnight events, no new symptoms cMRI today at 130pm for viability Depending on results and team approach, PCI vs CABG SCHEDULED MEDICATIONS: dapagliflozin 10 mg Oral QAM carvedilol 12.5 mg Oral BID WC spironolactone 25 mg Oral Daily sodium chloride flush 5-40 mL Intravenous 2 times per day aspirin 81 mg Oral Daily insulin lispro 0-6 Units Subcutaneous TID WC insulin lispro 0-3 Units Subcutaneous Nightly insulin glargine 50 Units Subcutaneous Daily REVIEW OF SYSTEMS: Review of Systems Constitutional: Negative for chills and fever. HENT: Negative for congestion, postnasal drip, sinus pressure, sinus pain and sore throat. Eyes: Negative for photophobia and visual disturbance. Respiratory: Negative for cough, shortness of breath and wheezing. Cardiovascular: Negative for chest pain, palpitations and leg swelling. Gastrointestinal: Negative for abdominal pain, blood in stool, constipation, diarrhea, nausea and vomiting. Endocrine: Negative for polydipsia and polyuria. Genitourinary: Negative for dysuria and hematuria. Musculoskeletal: Negative for arthralgias, back pain and myalgias. Skin: Negative for pallor and rash. Neurological: Negative for dizziness, syncope, weakness, light-headedness and headaches. Hematological: Negative for adenopathy. Does not bruise/bleed easily. Psychiatric/Behavioral: Negative for confusion and dysphoric mood. The patient is not nervous/anxious. VITAL SIGNS:BP 133/75 Pulse 75 Temp (!) 85.5 F (29.7 C) (Temporal) Resp 19 Ht 5' 5 (1.651 m) Wt 197 lb 3.2 oz (89.4 kg) SpO2 97% BMI 32.82 kg/m Admission weight: 197 lb 3.2 oz (89.4 kg) Patient Vitals for the past 96 hrs (Last 3 readings): Weight 04/04/21 1850 197 lb 3.2 oz (89.4 kg) PHYSICAL EXAMINATION: Physical Exam Vitals signs and nursing note reviewed. Constitutional: General: She is not in acute distress. Appearance: She is well-developed. She is not ill-appearing or diaphoretic. HENT: Head: Normocephalic and atraumatic. Right Ear: External ear normal. Left Ear: External ear normal. Nose: Nose normal. No rhinorrhea. Mouth/Throat: Mouth: Mucous membranes are moist. Pharynx: Oropharynx is clear. No oropharyngeal exudate. Eyes: General: Right eye: No discharge. Left eye: No discharge. Conjunctiva/sclera: Conjunctivae normal. Pupils: Pupils are equal, round, and reactive to light. Neck: Musculoskeletal: Normal range of motion and neck supple. Thyroid: No thyromegaly. Vascular: No JVD. Cardiovascular: Rate and Rhythm: Normal rate and regular rhythm. Pulses: Normal pulses. Heart sounds: Normal heart sounds. No murmur. No friction rub. No gallop. Pulmonary: Effort: Pulmonary effort is normal. No respiratory distress. Breath sounds: Normal breath sounds. No wheezing or rales. Abdominal: General: Bowel sounds are normal. There is no distension. Palpations: Abdomen is soft. There is no mass. Tenderness: There is no abdominal tenderness. There is no guarding. Musculoskeletal: General: No swelling or tenderness. Right lower leg: No edema. Left lower leg: No edema. Skin: General: Skin is warm and dry. Findings: No erythema or rash. Neurological: General: No focal deficit present. Mental Status: She is alert and oriented to person, place, and time. Psychiatric: Behavior: Behavior normal. Thought Content: Thought content normal. Judgment: Judgment normal. Data: Scheduled Meds: Reviewed Continuous Infusions: sodium chloride dextrose Intake/Output Summary (Last 24 hours) at 04/07/2021 1136 Last data filed at 04/07/2021 0500 Gross per 24 hour Intake 659 ml Output 750 ml Net -91 ml CBC: Recent Labs 04/06/21 0616 04/07/21 0159 WBC 6.4 6.9 HGB 11.7 11.1* HCT 34.7* 33.3* PLT 162 162 BMP: Recent Labs 04/06/21 0616 04/07/21 0159 NA 135 137 K 4.1 4.0 CL 103 107 CO2 26 25 BUN 17 17 CREATININE 0.65 0.66 Liver: Recent Labs 04/04/212013 AST 49* ALT 24 ALKPHOS 43 PROT 7.1 LABALBU 4.1 BILITOT 1.1 ABGs: No results found for: PH, PO2, PCO2 : Recent Labs 04/04/212013 INR 1.1 PRO-BNP: No results found for: NTPROBNP TROPONIN: Lab Results Component Value Date/Time TROPONINI 2.520 (H) 04/05/2021 12:00 AM TROPONINI 3.040 (H) 04/04/2021 08:14 PM TSH: Lab Results Component Value Date TSH 2.269 04/04/2021 Cardiac Injury Profile: Recent Labs 04/04/21201304/05/21 0000 CKTOTAL 298* 298* 282* CKMB 9.3* 9.3* 7.1* TROPONINI 3.040* 2.520* Profile: Lab Results Component Value Date TRIG 236 04/04/2021 HDL 33 04/04/2021 CHOL 169 04/04/2021 Hemoglobin A1C: No components found for: HGBA1C ANATITER: No results for input(s): ANATITER in the last 72 hours. HIV:No results for input(s): HIV1X2 in the last 72 hours. Ferritin:No results for input(s): FERRITIN in the last 72 hours. Digoxin levelNo results for input(s): DIGOXIN in the last 72 hours. EKG: See Report Echo: See Report IMPRESSIONS: Principal Problem: NSTEMI (non-ST elevated myocardial infarction) (HCC) Active Problems: Diabetes mellitus (HCC) Resolved Problems: * No resolved hospital problems. * RECOMMENDATIONS: 1. HFrEF EF 36%. Ischemic. New Diagnosis. Not in Acute Decompensation. ACC AHA Stage C [facility] FC IIIA. Etiology : Ischemic. Cardiac MRI today 04/07 to assess viability for PCI or CABG. Will tentatively make NPO tomorrow for possible PCI. Volume : euvolemic, not on diuretics GDMT : Coreg 12.5mg BID, Spironolactone 25mg qd, [id number] qd. Holding XUAN/ARB/ARNI for now until intervention determined. 2. CAD. Severe. Multivessel. ASA 81mg qd. Refusing Lipitor for history of muscle cramps, OK to try crestor, will order. Intervention as mentioned above. 3. NSTEMI - ACS. Now post 48 hours, heparin gtt has been stopped, back on subQ lovenox. GDMT and intervention as mentioned above. HF Education: Living with Heart Failure, Low Salt Diet, Fluid Restriction and Daily Weights I, Dr. Johnathan Stubbs, saw and evaluated the patient. I personally obtained the obrien and critical portions of the history and physical exam. I reviewed the chart, the fellow's documentation, and discussed the patient with the fellow. I agree with the fellow's medical decision making and have edited the note to reflect my clinical findings and my assessment and plan. In summary, Ms. Hatch is a 70-year-old female with a history of type 2 diabetes, hypertension, and hyperlipidemia who presented to [facility] ED with a chief complaint of shortness of breath. Left heart catheterization showed triple-vessel coronary artery disease, most severe in the LAD. Left ventriculogram showed ejection fraction 15% and her electrocardiogram shows old anterior wall infarct. Yesterday, her echocardiogram suggested left ventricle ejection fraction 36% with a motion under [place] s in the anterior wall. Today she will undergo a cardiac MRI to assess viability. Assuming that there is no viability in the anterior wall, we will arrange for PCI on Wednesday. If there is, we will reengage with our CT surgical colleagues. We will also add dapagliflozin today. Johnathan Stubbs MD, PhD Advanced Heart Failure Cardiology [facility]. [facility] [place] 12:08 PM 04/07/21 Images from the original note were not included. Hospitalist Progress Note 04/07/2021 9:14 AM [phone]: Please page me for patient care issues. [phone]: Please page [facility] night Hospitalist for any issues. Subjective: Admit Date: 04/04/2021 PCP: No primary care provider on file. Room#: 130/A87995 Interval History: Patient seen and examined, I was wearing N95 mask throughout the patient encounter No new event overnight patient denies chest pain. No shortness of breath. Discussed with nursing. Patient noticed some yellowish scab in the left antecubital foci of a previous IV line was there. Was cleaned and dressing placed. Patient denies any pain there. DIET CARDIAC; Patient Vitals for the past 96 hrs (Last 3 readings): Weight 04/04/21 1850 197 lb 3.2 oz (89.4 kg) Medications: sodium chloride heparin (PORCINE) Infusion 15.324 Units/kg/hr (04/07/21722) dextrose dapagliflozin 10 mg Oral QAM carvedilol 12.5 mg Oral BID WC spironolactone 25 mg Oral Daily sodium chloride flush 5-40 mL Intravenous 2 times per day aspirin 81 mg Oral Daily insulin lispro 0-6 Units Subcutaneous TID WC insulin lispro 0-3 Units Subcutaneous Nightly insulin glargine 50 Units Subcutaneous Daily LABS: CBC: Recent Labs 04/05/2135604/06/2116 04/07/21 015 WBC 8.1 6.4 6.9 RBC 4.16 4.15 3.99 HGB 11.6* 11.7 11.1* HCT 34.4* 34.7* 33.3* MCV 82.6 83.6 83.4 RDW 15.2* 15.0* 15.2* PLT 168 162 162 BMP: Recent Labs 04/05/2135604/06/21 0616 04/07/21 015 NA 137 135 137 K 3.6 4.1 4.0 CL 102 103 107 CO2 26 26 25 BUN 22* 17 17 CREATININE 0.70 0.65 0.66 GLUCOSE 124* 159* 136* CALCIUM 9.8 9.4 9.5 ANIONGAP 10 6 6 LIVER PROFILE: Recent Labs 04/04/212013 AST 49* ALT 24 BILITOT 1.1 ALKPHOS 43 LABALBU 4.1 PROT 7.1 PT/INR: Recent Labs 04/04/212013 PROTIME 11.6 INR 1.1 CARDIAC ENZYMES: Recent Labs 04/04/21201304/05/21 0000 TROPONINI 3.040* 2.520* Procalcitonin: Lab Results Component Value Date PROCAL <0.10 04/05/2021 Objective: Vitals: BP 132/64 Pulse 87 Temp 96.2 F (35.7 C) (Temporal) Resp 21 Ht 5' 5 (1.651 m) Wt 197 lb 3.2 oz (89.4 kg) SpO2 96% BMI 32.82 kg/m Pulse Ox: SpO2 Av % Min: 93 % Max: 96 % Supplemental O2: General appearance: No apparent distress, HEENT: Eyes: No scleral icterus No pallor Oral: Tongue is semi-moist Cardiovascular: S1S2 heard, RRR Respiratory: Clear to auscultation bilaterally Abdomen: Soft, non-tender, non-distended with normal bowel sounds. Musculoskeletal: No obvious deformities seen Skin: No visible rashes or lesions. Neurology- no focal neurology,Awake alert Extremity- no peripheral edema both lower extremities left antecubital fossa, tiny erythematous spot seen at the IV line, nontender and normoactive discharge Assessment Non-ST elevation myocardial infarction triple-vessel coronary artery disease ischemic cardiomyopathy diabetes type 2 history of ovarian cancer obesity Plan Heparin drip was discontinued post 48 hours on aspirin, Crestor started today ejection fraction of 36% cardiac magnetic resonance imaging today continue home Lantus insulin hold [facility], as patient going to be n.p.o. continue sliding scale insulin on Lovenox for deep vein thrombosis prophylaxis Labs ordered for AM Patient was informed about all work up and treatment plan Discussed with nursing staff Advance Directive: Full Code Discharge planning: OZZIE CAMARGO MD Division of Hospitalist Medicine Inpatient Medical Services PAGER: [phone] Images from the original note were not included. Hospitalist Progress Note 04/06/2021 11:48 AM Subjective: Admit Date: 04/04/2021 PCP: No primary care provider on file. Interval History: No overnight issues. No chest pain - no sob DIET CARDIAC; Date 04/06/21 0000 - 04/06/21 2359 Shift [id number] 0967-5843 8036-0553 24 Hour Total INTAKE P.O.(mL/kg/hr) 500(0.7) 500 I.V.(mL/kg) 268(3) 268(3) Shift Total(mL/kg) 768(8.6) 768(8.6) OUTPUT Shift Total(mL/kg) Weight (kg) 89.4 89.4 89.4 89.4 Patient Vitals for the past 96 hrs (Last 3 readings): Weight 04/04/21 1850 197 lb 3.2 oz (89.4 kg) Medications: sodium chloride heparin (PORCINE) Infusion 14.2 Units/kg/hr (04/06/21 0028) dextrose carvedilol 12.5 mg Oral BID WC spironolactone 25 mg Oral Daily sodium chloride flush 5-40 mL Intravenous 2 times per day aspirin 81 mg Oral Daily atorvastatin 80 mg Oral Nightly insulin lispro 0-6 Units Subcutaneous TID WC insulin lispro 0-3 Units Subcutaneous Nightly insulin glargine 50 Units Subcutaneous Daily Recent Labs 04/04/21201304/05/21 0357 04/06/21 0616 WBC 9.6 8.1 6.4 HGB 12.0 11.6* 11.7 PLT 181 168 162 Recent Labs 04/04/21201304/05/21 0357 04/06/21 0616 NA 139 137 135 K 3.3* 3.6 4.1 CL 101 102 103 CO2 25 26 26 BUN 22* 22* 17 CREATININE 0.70 0.70 0.65 GLUCOSE 159* 124* 159* Recent Labs 04/04/212013 AST 49* ALT 24 BILITOT 1.1 ALKPHOS 43 Lab Results Component Value Date TRIG 236 04/04/2021 HDL 33 04/04/2021 CHOL 169 04/04/2021 No results found for: PHART, PO2ART, [id number] Recent Labs 04/04/212013 INR 1.1 Recent Labs 04/04/21201304/05/21 0000 CKTOTAL 298* 298* 282* CKMB 9.3* 9.3* 7.1* TROPONINI 3.040* 2.520* No results for input(s): DDIMER in the last 72 hours. No components found for: HGBA1C Lab Results Component Value Date TSH 2.269 04/04/2021 Urine Culture: No results found for this or any previous visit. Objective: Vitals: BP 139/73 Pulse 91 Temp 97.3 F (36.3 C) (Temporal) Resp 17 Ht 5' 5 (1.651 m) Wt 197 lb 3.2 oz (89.4 kg) SpO2 97% BMI 32.82 kg/m Pulse Ox: SpO2 Av.4 % Min: 94 % Max: 97 % Supplemental O2: General appearance: alert and cooperative with exam Lungs: clear to auscultation bilaterally Heart: regular rate and rhythm, S1, S2 normal, no murmur, click, rub or gallop Abdomen: soft, non-tender; bowel sounds normal; no masses, no organomegaly Extremities: extremities normal, atraumatic, no cyanosis or edema Neurologic: No obvious focal neurologic deficits. Assessment Principal Problem: NSTEMI (non-ST elevated myocardial infarction) (HCC) Active Problems: Diabetes mellitus (HCC) Resolved Problems: * No resolved hospital problems. * Diagnosis Date Arthritis Back problem Diabetes (HCC) Ovarian cancer (HCC) Scalp cyst Sebaceous cyst Plan NSTEMI / triple CAD / ischemic CM - for echo and cardiac MRI scheduled for tomorrow - remains pain free - CABG vs PCI - cardio awaiting above studies to decide DM2 - MBS labile - monitor trend today Hx of ovarian CA Obesity -am labs -increase activity Advance Directive: Full Code Discharge planning: TBD Johny Ruiz MD [facility] Hospitalist CARDIOLOGY PROGRESS NOTE Chart and interval events reviewed. Reason for Visit return for ischemic CMP SUBJECTIVE: Today, the patient states she is feeling the same. SCHEDULED MEDICATIONS: sodium chloride flush 5-40 mL Intravenous 2 times per day aspirin 81 mg Oral Daily atorvastatin 80 mg Oral Nightly carvedilol 6.25 mg Oral BID WC insulin lispro 0-6 Units Subcutaneous TID WC insulin lispro 0-3 Units Subcutaneous Nightly insulin glargine 50 Units Subcutaneous Daily Active Problems: NSTEMI (non-ST elevated myocardial infarction) ([facility]) Resolved Problems: * No resolved hospital problems. * Review of Systems: Review of Systems Constitutional: Negative for activity change, fatigue and unexpected weight change. Eyes: Negative for visual disturbance. Respiratory: Negative for cough, chest tightness and shortness of breath. Cardiovascular: Negative for chest pain, palpitations and leg swelling. Gastrointestinal: Negative for abdominal distention, abdominal pain, constipation and nausea. Endocrine: Negative for cold intolerance. Genitourinary: Negative for decreased urine volume. Musculoskeletal: Negative for gait problem. Neurological: Negative for dizziness, syncope and weakness. Hematological: Does not bruise/bleed easily. Psychiatric/Behavioral: The patient is not nervous/anxious. All other systems reviewed and are negative. VITAL SIGNS: Vitals: 04/05/21 2040 04/05/21 2312 04/06/21 0453 04/06/21 0804 BP: 102/61 126/76 (!) 113/58 139/73 Pulse: 87 92 86 91 Resp: 20 20 16 17 Temp: 96.2 F (35.7 C) 96 F (35.6 C) 97.8 F (36.6 C) 97.3 F (36.3 C) TempSrc: Temporal Temporal Temporal Temporal SpO2: 96% 94% 95% 97% Weight: Height: Intake/Output Summary (Last 24 hours) at 04/06/2021 1055 Last data filed at 04/06/2021 0622 Gross per 24 hour Intake 768 ml Output 200 ml Net 568 ml Patient Vitals for the past 96 hrs (Last 3 readings): Weight 04/04/21 1850 197 lb 3.2 oz (89.4 kg) Physical Exam: Physical Exam Constitutional: Appearance: Normal appearance. She is not toxic-appearing or diaphoretic. HENT: Head: Normocephalic and atraumatic. Mouth/Throat: Mouth: Mucous membranes are moist. Pharynx: No oropharyngeal exudate or posterior oropharyngeal erythema. Eyes: General: No scleral icterus. Right eye: No discharge. Left eye: No discharge. Extraocular Movements: Extraocular movements intact. Pupils: Pupils are equal, round, and reactive to light. Neck: Musculoskeletal: Neck supple. Thyroid: No thyromegaly. Vascular: No JVD. Cardiovascular: Rate and Rhythm: Normal rate and regular rhythm. Pulses: Radial pulses are 2+ on the right side and 2+ on the left side. Heart sounds: S1 normal and S2 normal. No friction rub. No gallop. No S3 or S4 sounds. Pulmonary: Effort: No tachypnea. Breath sounds: Normal breath sounds. No wheezing, rhonchi or rales. Abdominal: General: Abdomen is flat. There is no distension. Palpations: Abdomen is soft. There is no hepatomegaly. Tenderness: There is no guarding. Musculoskeletal: Right lower leg: No edema. Left lower leg: No edema. Skin: General: Skin is warm and dry. Coloration: Skin is not jaundiced. Findings: No abrasion or rash. Neurological: Mental Status: She is alert. Mental status is at baseline. Sensory: No sensory deficit. Motor: No weakness or seizure activity. Psychiatric: Attention and Perception: Attention and perception normal. Mood and Affect: Mood and affect normal. Data: Scheduled Meds: Reviewed Continuous Infusions: sodium chloride heparin (PORCINE) Infusion 14.2 Units/kg/hr (04/06/21 0028) dextrose CBC: Recent Labs 04/05/21 0357 04/06/21 0616 WBC 8.1 6.4 HGB 11.6* 11.7 HCT 34.4* 34.7* PLT 168 162 BMP: Recent Labs 04/05/21 0357 04/06/21 0616 NA 137 135 K 3.6 4.1 CL 102 103 CO2 26 26 BUN 22* 17 CREATININE 0.70 0.65 INR: Recent Labs 04/04/212013 INR 1.1 No results for input(s): BNP in the last 72 hours. TSH: Lab Results Component Value Date TSH 2.269 04/04/2021 Cardiac Injury Profile: Recent Labs 04/04/21201304/05/21 0000 CKTOTAL 298* 298* 282* CKMB 9.3* 9.3* 7.1* TROPONINI 3.040* 2.520* Lipid Profile: Lab Results Component Value Date TRIG 236 04/04/2021 HDL 33 04/04/2021 CHOL 169 04/04/2021 EKG: Reviewed, see below or previous note Telemetry: Reviewed Echo: Reviewed, see below or previous note IMPRESSIONS/RECOMMENDATIONS: Ms. Hatch is a 70-year-old female with a history of type 2 diabetes, hypertension, and hyperlipidemia who presented to [facility] with a chief complaint of shortness of breath. Left heart catheterization showed triple-vessel coronary artery disease, most severe in the LAD. Left ventriculogram showed ejection fraction 15% and her electrocardiogram shows old anterior wall infarct. New onset ischemic CMP: She is euvolemic. Will plan to get her on GDMT. Have her on carvedilol 12.5 mg BID and spironolactone. Once we decide whether or not she is CABG candidate, will add Entresto low dose BID if not going to CABG and dapagliflozin prior to leaving. Triple vessel CAD: She is on high intensity statin therapy and aspirin. As above, will get cardiac MRI to look for any evidence of viability. If there is no plan for CABG, will consider PCI to RCA and LCx (with or without LAD). We will contionue to follow. Johnathan Stubbs MD, PhD Advanced Heart Failure Pleater Hand [facility] 10:55 AM 04/06/21 Nutrition rescreen completed. Chart reviewed. Patient to be monitored and followed by the diet power tool repair technician. Dietitian available upon request. Images from the original note were not included. CCU TRANSFER CHECKLIST Transfer Med Reconciliation (resume home meds if able, convert to PO if able) Complete Antibiotics (name, indication, duration, convert to PO if able) None Steroid (indication, duration, convert to PO if able) None Anticipated [place] Medications (CCU initiated) or Dose Changes and Indication Yes, addressed in today's progress note Permanently Discontinued Home Medications and Reason for medication contraindication No Garcia Catheter (please remove if able) No Central Line (please remove if able) No Transfer Discussed with: Dr. Camargo Patient likely to remain in 1 central bed for telemetry monitoring, will not continue to be followed by CCU. If additional questions for ICU team within 24 hours of CCU transfer, page projection technician CCU internet cafe manager for clarifications. [facility] CCU PROGRESS NOTE Patient Name: Indira Hatch : 1950 Reason for Admission: NSTEMI History of Present Illness: Indira Hatch is a 70 y.o. female with PMH ovarian cancer, DM2, OA; and a surgical history of ARELY, appendectomy, multiple hernia repairs, and back surgeries that was admitted to [facility] on 04/04/2021 for NSTEMI. Patient originally presented to [facility] with sudden onset dyspnea while bowling 04/03. Patient had initial lactic acidosis (5.3). EKG showed Q waves and J-point elevation in V2-V4 and ST depressions in the inferior leads. Echo showed regional wall motion abnormality in apex and lateral fu, EF 15%. Patient taken to cath 04/04 with evidence of severe LAD disease, and multi-vessel disease. Transferred to [facility] for CABG consideration. Patient seen this morning. Remains short of breath this AM with exertion. No chest pain. Confirms above history. Does state she had about 2 weeks of on and off chest pain that she attributed to GERD prior to her episode 04/03. No other complaints at this time. Review of Systems Constitutional: Negative for activity change, appetite change, chills, fatigue and fever. Respiratory: Positive for shortness of breath (with exertion). Negative for apnea, cough, choking and chest tightness. Cardiovascular: Negative for chest pain, palpitations and leg swelling. Gastrointestinal: Negative for abdominal distention, abdominal pain, nausea and vomiting. Musculoskeletal: Negative for arthralgias, back pain and myalgias. Skin: Negative for color change, pallor, rash and wound. Neurological: Negative for dizziness, weakness, light-headedness and numbness. Past Medical History: Diagnosis Date Arthritis Back problem Diabetes (HCC) Ovarian cancer (HCC) Scalp cyst Sebaceous cyst Past Surgical History: Procedure Laterality Date APPENDECTOMY BACK SURGERY 2005,2015 EYE SURGERY Right 2017, Left 2018 HERNIA REPAIR 2004, 2006,2009 HYSTERECTOMY, TOTAL ABDOMINAL No family history on file. Social History Socioeconomic History Marital status: Spouse name: Not on file Number of children: Not on file Years of education: Not on file Highest education level: Not on file Occupational History Not on file Social Needs Financial resource strain: Not on file Food insecurity Worry: Not on file Inability: Not on file Transportation needs Medical: Not on file Non-medical: Not on file Tobacco Use Smoking status: Current Every Day Smoker Types: Cigarettes Smokeless tobacco: Never Used Substance and Sexual Activity Alcohol use: Not on file Drug use: Not on file Sexual activity: Not on file Lifestyle Physical activity Days per week: Not on file Minutes per session: Not on file Stress: Not on file Relationships Social connections Talks on phone: Not on file Gets together: Not on file Attends christian service: Not on file Active member of club or organization: Not on file Attends meetings of clubs or organizations: Not on file Relationship status: Not on file Intimate partner violence Fear of current or ex partner: Not on file Emotionally abused: Not on file Physically abused: Not on file Forced sexual activity: Not on file Other Topics Concern Not on file Social History Narrative Not on file Allergies Allergen Reactions Cefuroxime Percocet [Oxycodone-Acetaminophen] Tetracyclines & Related sodium chloride flush 5-40 mL Intravenous 2 times per day aspirin 81 mg Oral Daily atorvastatin 80 mg Oral Nightly carvedilol 6.25 mg Oral BID WC insulin lispro 0-6 Units Subcutaneous TID WC insulin lispro 0-3 Units Subcutaneous Nightly insulin glargine 50 Units Subcutaneous Daily Physical Exam: BP 114/60 Pulse 85 Temp 97.1 F (36.2 C) (Temporal) Resp 16 Ht 5' 5 (1.651 m) Wt 197 lb 3.2 oz (89.4 kg) SpO2 94% BMI 32.82 kg/m Date 04/05/21 0000 - 04/05/21 2359 Shift [id number] 2047-2822 8543-8396 24 Hour Total INTAKE I.V.(mL/kg) 82(0.9) 82(0.9) IV Piggyback(mL/kg) 97(1.1) 97(1.1) Shift Total(mL/kg) 179(2) 179(2) OUTPUT Urine(mL/kg/hr) 550 550 Shift Total(mL/kg) 550(6.1) 550(6.1) Weight (kg) 89.4 89.4 89.4 89.4 Patient Vitals for the past 96 hrs (Last 3 readings): Weight 04/04/21 1850 197 lb 3.2 oz (89.4 kg) Physical Exam Constitutional: General: She is not in acute distress. Appearance: Normal appearance. She is obese. She is not toxic-appearing. HENT: Head: Normocephalic and atraumatic. Neck: Musculoskeletal: Neck supple. Vascular: No JVD. Cardiovascular: Rate and Rhythm: Normal rate and regular rhythm. Pulses: Normal pulses. Heart sounds: Normal heart sounds. No murmur. No gallop. Pulmonary: Effort: Pulmonary effort is normal. No respiratory distress. Breath sounds: Wheezing (diffuse) present. No rales. Abdominal: General: Abdomen is flat. Bowel sounds are normal. There is no distension. Palpations: Abdomen is soft. Tenderness: There is no abdominal tenderness. There is no guarding. Musculoskeletal: Right lower leg: No edema. Left lower leg: No edema. Skin: General: Skin is warm and dry. Neurological: Mental Status: She is alert and oriented to person, place, and time. Pertinent Labs: BMP: Recent Labs 04/05/21 0357 NA 137 K 3.6 CL 102 CO2 26 BUN 22* CREATININE 0.70 GLUCOSE 124* CBC: Recent Labs 04/05/21 0357 WBC 8.1 HGB 11.6* PLT 168 ABGs: No results found for: PHART, PO2ART, [id number] INR: Recent Labs 04/04/212013 INR 1.1 TSH: Lab Results Component Value Date TSH 2.269 04/04/2021 PRO-BNP: No results for input(s): BNP in the last 72 hours. Cardiac Injury Profile: Recent Labs 04/04/21201304/05/21 0000 CKTOTAL 298* 298* 282* CKMB 9.3* 9.3* 7.1* CKMBINDEX 3.1* 3.1* 2.5 TROPONINI 3.040* 2.520* Lipid Profile: Lab Results Component Value Date TRIG 236 04/04/2021 HDL 33 04/04/2021 CHOL 169 04/04/2021 Hemoglobin A1C: No components found for: HGBA1C Chest Imaging: - CXR: 04/04/2021 Left basilar atelectasis/infiltrate. Follow-up suggested. Cardiac Studies: - [id number] Sinus rhythm Borderline left axis deviation Extensive anterior infarct, old - Telemetry Review: No acute events - Echo: Pending Active Problems: NSTEMI (non-ST elevated myocardial infarction) (HCC) Resolved Problems: * No resolved hospital problems. * ASSESSMENT / PLAN: NSTEMI Multivessel CAD - diffuse, 90% LAD, 50-60% LCX, 40-50% RCA - Transferred to [facility] for CABG evaluation. - CTS is consulted, appreciate recommendations - MULU score 5: 26% risk at 14 days of all-cause mortality, new or recurrent VT, or severe recurrent ischemia requiring urgent revascularization - KEYON score 166: 30% probability of from admission to 6 months - initial troponin: 0.459 --> 2.69 --> 6.210 --> 3.04 --> 2.520 - initial EKG: Q waves and J-point elevation in V2-V4 and ST depressions in the inferior leads - Received Brilinta at [facility] per patient - start heparin gtt, beta laurel Coreg 6.25 BID (home med), high intensity statin - atorvastatin 80, ASA 81 - Currently chest pain free - check lipid panel and hemoglobin A1c - D/C'd troponin, CK, CK-MB trend - daily CBC, BMP, Mg, P; replace electrolytes as necessary - obtain formal TTE - daily EKG - diet: Cardiac - suspicion that VT occurred 1-2 weeks prior to presentation - Cardiac MRI to evaluate akinetic anterior wall - Patient stable for transfer to telemetry HFrEF/ischemic cardiomyopathy (LVEF 15%) -New onset, likely due to NSTEMI, ischemic cardiomyopathy -Appears euvolemic at present, received 40 mg IV Lasix x 2 at [facility] -Continue Coreg 6.25 mg BID -Diuresis PRN -I/O's, daily weights -GDMT after intervention decision Left basilar atelectasis/infiltrate -CTA obtained at [facility] showed pulmonary edema versus atypical pneumonia, pulmonary edema was favored as patient did not have any infectious signs or symptoms and respiratory virus panel with COVID-19 was negative -Procal <0.10 -Improved after diuresis at outside hospital -Currently on room air -Monitor I/O's, symptoms, and for signs of infection Type 2 DM -Continue home Lantus 50 units daily -Low dose SSI -Patient reportedly supposed to be on Humalog 20 units at lunch and 25 units at dinner; Taking differently - 45 units at dinner if BG is high and 20 units at dinner otherwise -Holding home metformin and glimiperide while inpatient -POCT glucose checks QID AC & HS -Hypoglycemia protocol Hypomagnesemia Hypokalemia -Replaced -Daily CMP, Mg Tobacco Use -25 pack years -Encourage cessation Lactic acidosis (resolved) -Likely due to NSTEMI, new onset decompensated HFrEF -Lactic acid 5.3 --> 3.1 --> 2.3 --> 1.5 -Deferred fluid bolus due to LVEF=15% - Goals of Care: FULL CODE - Anticoagulation: Heparin Drip - GI Prophylaxis: Not Indicated - Diet: Cardiac - BMI Classification: Body mass index is 32.82 kg/m . Obesity (BMI >30) - Disposition: Transfer to [facility] / Telemetry. I, Dr. Johnathan Stubbs, saw and evaluated the patient on 04/05/21. I personally obtained the obrien and critical portions of the history and physical exam. I reviewed the labs, imaging studies, and electronic medical record. I reviewed the Substance Abuse Counselor's documentation, and discussed the patient with the Substance Abuse Counselor. I agree with the Substance Abuse Counselor's medical decision making and have edited the note to reflect my clinical findings and my assessment and plan. In summary, Ms. Hatch is a 70-year-old female with a history of type 2 diabetes, hypertension, and hyperlipidemia who presented to [facility] with a chief complaint of shortness of breath. Left heart catheterization showed triple-vessel coronary artery disease, most severe in the left anterior descending. I reviewed these images and agree with the original interpretation. In short, she has a very diffusely diseased left anterior descending with minimal flow, some severe disease of the circumflex that would be amenable to PCI, and also the RCA. Left ventriculogram showed ejection fraction 15% and her electrocardiogram shows old anterior wall infarct. Overall what is clear is that Ms. Hatch has ischemic cardiomyopathy with severely reduced ejection fraction, with what is probably a recent anterior myocardial infarction. Her electrocardiogram showing Q waves across the anterior wall suggests the possibility of all nonviable myocardium. We will obtain a transthoracic echocardiogram, and a cardiac MRI to assess viability. If most of her anterior wall is nonviable, we will consider PCI to her other vessels, and aggressive up titration of medical therapy for her ischemic cardiomyopathy. Johnathan Stubbs MD, PhD Advanced Heart Failure Cardiology [facility] [place] 11:55 AM 04/05/21 documented in this encounter [facility] Work Phone: Evaluation note Diagnosis NSTEMI (non-ST elevated myocardial infarction) ([facility])- Primary Acute myocardial infarction, subendocardial infarction, episode of care unspecified Post PTCA Postsurgical percutaneous transluminal coronary angioplasty status Diabetes mellitus ([facility]) Type II or unspecified type diabetes mellitus without mention of complication, not stated as uncontrolled Ischemic cardiomyopathy Other specified forms of chronic ischemic heart disease Acute systolic (congestive) heart failure ([facility]) Tobacco abuse Tobacco use disorder Other hyperlipidemia documented in this encounter [facility] Work Phone: Evaluation note* Diagnosis 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- Primary documented in this encounter [facility] Work Phone: Evaluation note* Diagnosis Onset Date Resolution Status Adrenal adenoma acute Atherosclerotic heart diseas e of oneida coronary artery without angina pectoris acute CHF (congestive heart failure) acute Diabetes acute History of back surgery acut e History of cataract surgery acute History of heart artery stent acute History of respiratory failure acute History of total hysterectomy acute History of umbilical hernia repair acute Ulcer of abdomen wall acute [facility] Work Phone: Evaluation note* Diagnosis Onset Date Resolution Status Adrenal adenoma acute Atherosclerotic heart diseas e of oneida coronary artery without angina pectoris acute CHF (congestive heart failure) acute Diabetes acute History of back surgery acut e History of cataract surgery acute History of heart artery stent acute History of respiratory failure acute History of total hysterectomy acute History of umbilical hernia repair acute Ulcer of abdomen wall acute Adrenal adenoma acute Atherosclerotic heart diseas e of oneida coronary artery without angina pectoris acute CHF (congestive heart failure) acute Diabetes acute History of back surgery acut e History of cataract surgery acute History of heart artery stent acute History of respiratory failure acute History of total hysterectomy acute History of umbilical hernia repair acute Ulcer of abdomen wall acute [facility] Work Phone: evaluation note* Diagnosis Chronic systolic congestive heart failure (CMS/HCC) (HCC) [facility]* Diagnosis 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 [facility]* Diagnosis Primary hypertension- Primary Unspecified essential hypertension 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 NSTEMI (non-ST elevated myocardial infarction) (CMS/HCC) (HCC) Acute myocardial infarction, subendocardial infarction, episode of care unspecified Ischemic cardiomyopathy Other specified forms of chronic ischemic heart disease [facility]* Diagnosis 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 [facility] [facility] noteNo assessment information availableWGuernsey [facility] Hospital Work Phone: evaluation note* Diagnosis 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 [facility]* Diagnosis Primary hypertension Unspecified essential hypertension Type 2 diabetes mellitus with hyperosmolarity without coma, without long-term current use of insulin (CMS/HCC) (HCC) 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 Ischemic cardiomyopathy Other specified forms of chronic ischemic heart disease NSTEMI (non-ST elevated myocardial infarction) (HCC) Acute myocardial infarction, subendocardial infarction, episode of care unspecified documented in this encounter [facility]* Diagnosis Chronic systolic congestive heart failure (HCC) documented in [facility]* Diagnosis Type 2 diabetes mellitus with hyperosmolarity without coma, without long-term current use of insulin (CMS/HCC) (HCC) [facility] Diagnosis 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 documented in this encounter [facility]* Diagnosis 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- Primary 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 documented in this [facility]* Diagnosis 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 documented in this encounter [facility]* Diagnosis 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 [facility] Chronic systolic congestive heart failure (HCC) documented in this encounter [facility] Discharge instructions* Instructions* Cherie Hillman APRN - [employer]DROG[employer] POWER [employer]ANT MANAGER - 04/09/2021 Images from the original note were not included. Call your doctor with any medication questions or if you notice any side effects from your medications. If you are unable to fill your medications, please call your [facility] immediately. The office number is located with your follow-up appointment information. Call your doctor if any redness or drainage from the wound site. DO NOT stop taking your medication unless instructed to do so by your doctor. Read the drug information material that were given to you and take medications as instructed by your doctor. New drugs may have been added to your medications, that will strengthen your heart and prevent re-stenosis of the coronary arteries. Drink 6 glasses of water (8 ounces each) over the next 24 hours. Water helps clear the dye from your body. No alcoholic beverages for 24 hours. It may interfere with healing. No exercise or sex for 5 days. Call 911 for chest pain, arm pain, nausea, neck pain, dizziness or unusual sweating AND your pain has not relieved with 2 doses of Nitroglycerin. Call your doctor if a lump at the puncture site enlarges or is larger than marble size. Call your doctor for numbness, tingling, or swelling of the fingers, hand or wrist. Call your doctor for increased area or bruising with discoloration extending into the arm. If bleeding occurs, hold pressure with your thumb against the puncture site and your finger againstthe back of the wrist for 10 minutes, if BLEEDING continues CALL 911. OK to shower. No tub baths, swimming pools or hot tub soaking for three days. Wash site daily with soap and water, dry gently. The healing wound should remain soft and dry. Keepsite clean and dry, no soaking of wrist for three days (no cleaning or dish washing). Remove band aid the day after procedure and leave open to air. No bending of affected wrist for 24 hours. DO NOT lift more than three pounds for 3-5 days[address] for 24 hours. GIVE PCI PACKET (FROM BRAKE DRUM MOLDER) TO PATIENT Give Coronary Artery Discharge Booklet PLEASE CALL YOUR HEART DOCTOR IF YOU CANNOT GET YOUR MEDICATIONS. THE NUMBER IS LISTED WITH YOUR FOLLOW-UP APPOINTMENT. Procedure Sedation Instructions 1. If you have received sedation: you must have someone drive you home 2. You should not drive a car, operate machinery, drink alcohol or perform any activity that requires alertness for the rest of the day. The effects of the sedative should be gone by tomorrow. Cardiac Rehab The Cardiac Rehabilitation Team at [facility] consists of highly skilled healthcare professionals, including nurses, physicians, and exercise physiologists all working together to help you return to a healthy, and active lifestyle. As a survivor of heart disease the program is designed to answer all of your questions about the disease through education, activity, monitored exercise, diet modification, and medication adherence. This program is proven to reduce reoccurrence of heart disease and reduce readmission. It is important for you to enroll in the program by attending orientation. For any questions regarding this valuable service please call # [phone] Orientation is available on all Wednesdays at 11:30 am location in the [address] [facility] or [phone] YOUR APPOINTMENT IS SCHEDULED FOR: 04/15/2021 2:00 PM Johnathan Stubbs MD Please bring all your medication and supplement bottles to the appointments. Care Instructions for Heart Failure In heart failure , the heart is unable to pump the right amount of blood throughout the body. This causes blood to back up in the veins. Depending on which part of the heart is affected most, this can lead to a build up of excess fluid in the lungs, feet, and elsewhere. You are diagnosed with heart failure and have been referred to the [facility]Failure Program for your heart failure care. Follow the steps below for an improved quality of life. The more you are involved in your own self-care management, the healthier you will stay. We are here to help. Steps to Take Home Care One of your self-care management goals is to prevent and control the things that cause your symptoms. Follow these tips: Adequate rest and daily activity will keep you strong and healthier. When ill, rest until you are feeling well. Once able, return to daily activity. Weigh yourself daily on the same scale. Alert the heart failure clinic if you gain more than three pounds (1.3 kilograms) in a day. You may be retaining fluid. Also call your doctor if you notice a big weight loss. Avoid tobacco and alcohol. Avoid others with colds and other contagious diseases. It is recommended to get your annual flu vaccine to prevent further sickness that may hinder your progress. Diet Heart failure can make you feel very tired and short of breath. Eating a healthy diet can help improve your symptoms. It will also help you lead a full and enjoyable life. You need to avoid salt in your diet. Do not add salt to your foods. You should try to limit your sodium (salt) content to 2000 mg or less daily. You will get over 2000 mg of salt from prepared/processed foods if you eat carefully. Fluids should be limited to less than two quarts (64 ounces or 8 cups) daily. Eat a healthy diet low in fat and sugar and high in fiber. Fresh fruits, fresh vegetables and fresh cuts of meat are your best options. Processed foods are high in sodium and will likely worsen your heart failure. Avoid salt substitutes such as Nu Salt, Salt Sense, or Visnon's Salt Substitutes as these may be dangerous when used with some of your medications. Physical Activity Exercise improves your strength and stamina. You should try to get some activity every day. We can help you determine an exercise program that meets your needs. In some cases a cardiac rehabilitationprogram may be helpful. If cardiac rehab is recommended for you, it can be invaluable in improving your health and sense of well-being. Additionally, we encourage you to return to work as soon as you are able. Your health care team will advise you when you will be able to return to work. Medications Your heart failure team will most likely prescribe a combination of medications. Common medicationsinclude: XUAN inhibitors or their alternatives to widen blood vessels Beta-blockers to slow your heart rate and lower blood pressure Diuretics to remove excess fluid in your body You may also be given medications to: Thin the blood (such as aspirin, clopidogrel, warfarin, apixaban, rivaroxaban and others) Help manage chest pain (such as nitroglycerin ) Help manage cholesterol levels If you are taking medications, follow these general guidelines: Take your medication as directed. Do not change the amount or the schedule. Do not stop taking your medications without talking to your healthcare providers. Do not share your medications. Know what the results and side effects of your medications. Report them to your healthcare providers. Some medications, supplements, or pjbz-phd-utzzcnl medications can be dangerous when mixed. Talk toa healthcare provider or pharmacist if you are taking more than one. This includes yuzx-qhg-cebsqutyuulwtyjwc and herb or dietary supplements. Plan ahead for refills so you don't run out. Your medications are life saving therapy and should not be interrupted. Lifestyle Changes You and your healthcare team will plan lifestyle changes that will help you recover and live a longer, healthier life. Again, some things to keep in mind: Stop smoking. Monitor your weight and blood pressure closely. You should weigh yourself each morning and record your weight daily. Gaining weigh rapidly (3 pounds in a day) is a sign of heart failure and should bereported promptly. Be careful with salt or sodium. Limit fats and cholesterol. Limit alcohol. Exercise according to recommendations. Avoid places that are hot, humid, and of high altitudes. Avoid severe cold weather as well. Follow-up In most cases, heart failure is a chronic condition that needs life-long management. Following hospital discharge, see your heart failure healthcare provider within seven days. It is important because this is the most critical time for a readmission which would reduce your chance of a full recovery. You will be asked to see your heart failure team every three to six months when you are healthy. Besure to keep all appointments. It has been found that routine follow-up and monitoring will prolonglife and reduce hospitalizations. Have tests, x-rays , and chest scans done as directed. These are ordered to prevent undue damage toyour body organs such as your kidneys. Some tests may help decide what other therapies may be of benefit for you to keep you healthier longer. Call Your Heart Failure Team If Any of the Following Occurs [facility] or [phone] Fatigue, weakness, sleepiness Shortness of breath: with activity, conversation, at rest or when lying down Wheezing Cough: may be dry,hacking or wet sounding. Sometimes with a pink, frothy sputum Swelling of feet, ankles, or legs Frequent urination, especially at night Unexplained weight gain Abdominal pain, distention, or tenderness Signs of infection, including fever or chills Nausea or vomiting Dizziness or lightheadedness Rapid or irregular heartbeat Rash or hives Call 911 or go to the emergency room immediately if any of the following occurs: Chest pain that is new or worsening Severe shortness of breath Passing out If symptoms get a lot worse If you think you have an emergency, CALL 911 . The [facility] Heart Failure Program is located at [address] [place] [address], [facility] [address] [address]. Please use the [address] [place] [address] flat surface parking lot and enter off of [facility]. Last Reviewed: Cherie Hillman Updated: 12/23/2018 documented in this [facility] Work Phone: Hospital Discharge instructions Additional Instructions You chose to sign AGAINST MEDICAL ADVICE. You hit your head, you are on Brilinta and aspirin. Both of these can increase the risk of head injury as well as your age. You could have a bleed inside your brain from which you could , you become paralyzed, you could end up in a persistent vegetative state or other serious issues. If you change your mind or anything worsens we are glad to see you back in our emergency department.[facility] Work Phone: Reason for referral (narrative)No reason for referral information availableWGuernsey Memorial Hospital Work Phone: Assessments Diagnosis Type 2 diabetes mellitus wit hout complication, with long-term current use of insulin (HCC) Diagnosis Preop examination Unspecified pre-operative examination Combined forms of age-relate d cataract of right eye Essential hypertension Unspecified essential hypertension Type 2 diabetes mellitus wit hout complication, with long-term current use of insulin (HCC) Diagnosis Type 2 diabetes mellitus wit hout complication, with long-term current use of insulin (HCC) Preop examination Unspecified pre-operative examination Combined forms of age-relate d cataract of left eye Essential hypertension Unspecified essential hypertension Diagnosis Type 2 diabetes mellitus wit hout complication, with long-term current use of insulin (HCC) Diagnosis Type 2 diabetes mellitus wit hout complication, with long-term current use of insulin (HCC) Encounter for hepatitis C sc reening test for low risk patient Diagnosis Type 2 diabetes mellitus wit hout complication, with long-term current use of insulin (HCC) - Primary Essential hypertension Unspecified essential hypertension Seborrheic keratoses, inflam ed Screen for colon cancer Special screening for malignant neoplasms, colon Diagnosis Post-operative state - Prima ry Other postprocedural status Diagnosis Pinguecula of left eye Bilateral dry eyes Diagnosis Pinguecula of left eye - Yajaira salomon Type 2 diabetes mellitus wit hout complication, with long-term current use of insulin (HCC) Diagnosis Post-operative state - Prima ry Other postprocedural status Diagnosis Preop examination - Primary Unspecified pre-operative examination Combined forms of age-relate d cataract of left eye Essential hypertension Unspecified essential hypertension Type 2 diabetes mellitus wit hout complication, with long-term current use of insulin (HCC) Diagnosis Combined forms of age-relate d cataract of left eye - Primary Post-operative state Other postprocedural status Diagnosis Post-operative state - Prima ry Other postprocedural status Diagnosis Combined forms of age-relate d cataract of right eye - Primary Diagnosis Preop examination - Primary Unspecified pre-operative examination Combined forms of age-relate d cataract of right eye Type 2 diabetes mellitus wit hout complication, with long-term current use of insulin (HCC) Essential hypertension Unspecified essential hypertension Diagnosis 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 Drops: 1)Prednisolone (pink or white top): One drop in the left eye twice a day for 2 weeks. 2) Stop Vigamox (tran). 3) Ketorolac (anthony): One drop twice a day in the left eye for 2 weeks. It is OK if it runs out. Glasses prescription given. Fill this at an optical shop at your own discretion. Some insurances will pay for part of glasses following cataract surgery, so you need to ask both the insurance companyand the optical shop about this. in this encounter* Patient Instructions - Mejia Ku MD - 07/06/2017 11:40 AM EDT Mild dry eye of both eye(s). If you are not having any symptoms then there is nothing you need to do. If you have occasional dryness, you can use over the counter artificial tear drops (such as Systane Balance) up to 4 times a day and consider taking two capsules of fish oil Daily ( consider Viva naturals fish oil). If you cannot tolerate fish oil you can consider krill oil ( Adalberto Red). Run a humidifier from August through January. You may have had a conjunctival cyst in the left eye but I do not see any today. Call if symptoms return. in this encounter* Patient Instructions - Jailene Diez MD - 07/01/2017 3:33 PM EDT Pterygium and Pinguecula: Care Instructions Your Care Instructions Pterygium (say puu-DVZ-aga-um) and pinguecula (say tdyv-BHSE-fom-janice) are similar eye problems.They are both a growth on the conjunctiva. This is the lining of the eyelid and the covering of thewhite part of the eye. The growths may make your eyes dry and sore. A pterygium grows on the cornea. This is the clear part of the eye that covers the colored part of the eye. It sometimes affects your vision. A pinguecula may grow close to the cornea, but it does not grow over it. It is most common in olderpeople. Too much exposure to the sun may play a role in these problems. They are most common in hot climates. Dry air, dust, and smoke can make them more likely to occur. Your doctor may prescribe steroid drops to reduce redness and irritation. You also may use zhnk-tuq-vmvawcn drops (artificial tears) to keep your eyes wet. If a pterygium gets big enough to cover part of the cornea, you may need surgery to remove it. Follow-up care is a obrien part of your treatment and safety. Be sure to make and go to all appointments, and call your doctor if you are having problems. It's also a good idea to know your test resultsand keep a list of the medicines you take. How can you care for yourself at home? Wear sunglasses and a hat when you are outdoors during the day. Use wnjg-jiv-jioejdm artificial tears if your eyes feel dry. When should you call for help? Call your doctor now or seek immediate medical care if: Your eyes are still red and irritated after a week of treatment. You have trouble seeing, double vision, or another change in vision. A pterygium gets larger or affects your vision. Watch closely for changes in your health, and be sure to contact your doctor if you have any problems. Where can you learn more? Log into your personal health record on https://[employer] and enter L928 in the Education box to learn more about Pterygium and Pinguecula: Care Instructions. Current as of: April 20, 2016 Content Version: 11.2 2612-4799 [employer]. Care instructions adapted under license by your healthcare professional. If you have questions about a medical condition or this instruction, always ask your healthcare professional. [employer] disclaims any warranty or liability for your use of this information. in this encounter* Patient Instructions - Mejia Ku MD - 12/14/2017 8:02 AM EST The cataract surgery on your left eye is healing nicely. Call the office for increased pain, decreased vision, increased redness. No swimming,bowling, golfing, or similar activities for 1 week. No lifting more than 30 pounds for 1 week. If you see better with glasses on leave them on, if you see better with them off, leave them off. DROPS: shake each drop and wait 3 minutes between them 1) Prednisolone(pink or white top): one drop in left eye 4 times a day until next visit 2) Ketorolac (anthony): one drop in left eye 4 times a day until next visit.This drop may run out and that is OK 3) Vigamox (tran): one drop in left eye 4 times a day until next visit. This drop may run out and that is OK. in this encounter* Patient Instructions - Mejia Ku MD - 12/01/2017 10:39 AM EST The cataract surgery on your right eye is healing nicely. Drops: 1)Prednisolone (pink top): One drop in the right eye twice a day for 2 weeks. 2) Ketorolac ( anthony top): One drop in the right eye twice a day for 2 weeks. It is OK if it runs out. 3) Stop the tran top ( Vigamox). As discussed, we will attempt to leave the left eye focused at arms length without glasses. This isnot a guarantee. There will be a pair of glasses that allow you to see your very best following surgery. You will decide when/if you want to wear them. in this encounter* Patient Instructions - Mejia Ku MD - 11/16/2017 8:03 AM EST The cataract surgery on your right eye is healing nicely. Call the office for increased pain, decreased vision, increased redness. No swimming,bowling, golfing, or similar activities for 1 week. No lifting more than 30 pounds for 1 week. If you see better with glasses on leave them on, if you see better with them off, leave them off. DROPS: shake each drop and wait 3 minutes between them 1) Prednisolone(pink or white top): one drop in right eye 4 times a day until next visit 2) Ketorolac (anthony): one drop in right eye 4 times a day until next visit.This drop may run out andthat is OK 3) Vigamox (tran): one drop in right eye 4 times a day until next visit. This drop may run out and that is OK. in this encounter* Patient Instructions - Mejia Ku MD - 11/09/2017 8:10 AM EST You are here today for A's and K's. These are the measurements used to determine the power of the lenses to place in your eye(s) following cataract surgery to leave you seeing the best we can following the procedure without the aid of glasses. I will attempt to leave the right eye seeing well in the distance. This is not a guarantee that you won't need glasses and in fact there will probably be apair of glasses following the surgery that will allow you to see your best. It is likely you will need glasses for reading. You will decide whether or not to wear glasses and when and if you want to wear them. In addition, although the cataract surgery is expected to improve the vision,it will not eliminate any of your other eye problems if you have any. They will still need to be monitored. Theymay limit your vision to some degree after the surgery. in this encounter* Patient Instructions - Mejia Ku MD - 10/06/2017 8:56 AM EST Cataract of both eye(s) that are visually significant. They are progressed This is a cloudy lens inside the eye that is decreasing your vision. If there are no contraindications, we can consider cataract surgery. Risks, benefits and alternatives discussed. You have decided to proceed with this. We would do the right and then the left. You have diabetes without diabetic retinopathy of both eye(s). These are progressed. You need to continue to consult with your primary care physician to keep tight control of your blood sugar, blood pressure, and cholesterol/triglycerides. This will help to significantly lower your chances of developing diabetic retinopathy and associated potential loss of vision. Narrow angle glaucoma suspect. The drainage mechanism in your both eye(s) is narrow but not narrow enough to require any laser surgery. It needs to be monitored. If the angle becomes too narrow, thenfluid cannot drain out of the eye, pressure can build up ,and damage to the nerve can result from narrow angle glaucoma. For now, just follow up as scheduled. Mild dry eye of both eye(s). If you are not having any symptoms then there is nothing you need to do. If you have occasional dryness, you can use over the counter artificial tear drops (such as Systane Balance) up to 4 times a day and consider taking two capsules of fish oil Daily ( consider Viva naturals fish oil). If you cannot tolerate fish oil you can consider krill oil ( Adalberto Red). Run a humidifier from August through January. in this encounter* Patient Instructions - Jailene Diez MD - 06/10/2018 9:24 AM KEITHT EMMANUEL Low Risk Patient Instructions: Your Falls Screening today shows that you are at low risk for falls. To further protect yourself from falls and maintain your independence, we recommend: 1. Read through the brochure, What You Can Do to Prevent Falls (from CDC). 2. Go through the brochure, Check for Safety: A Home Fall Prevention Checklist for Older Adults (from CDC), and make changes as recommended. 3. Join a community falls prevention program: ? Stepping On, a 7-week evidence based program that teaches balance exercises and fall prevention strategies ? Yonathan Chi for older adults, group exercise that teaches Yonathan Chi forms that reduce fall risk (weightshifting, postural alignment and control, and coordinated movements of the arms, legs, head, and trunk) ? Matter of Balance, an evidence based program designed to reduce the fear of falling and increase activity levels of older adults OR an exercise class for strength and balance. 4. Take your Vitamin D with or without Calcium, as determined by your healthcare provider. 5. Get your vision and hearing checked annually. Stepping On is an evidence based program proven to reduce falls in older adults. It is a workshop offered once a week for seven weeks. In a small-group setting, you will learn balance exercises and develop specific knowledge and skills to prevent falls. Older adults who should attend are those who: are at risk of falling who have fallen one or more times lives at home are able to walk without the help of another person Local guest experts provide information on exercise, safety, vision, and medications. Classes are offered at [facility]. To find out specifics about a class, please call [phone]. Yonathan chi: Moving for Better Balance involves low impact exercise. The 12-week class is offered for three hours per week and is led by a trained horticulture instructor. It is intended for people aged 60 and older. Participants learn and perform a program of eight forms that progress from easy to more difficult. The program can accommodate persons with various physical conditions. Health Benefits of Yonathan Chi: Moving for Better Balance: Improved social and mental well-being, Improved balance and physical functioning, Improved confidence in conducting daily activities, Reduced risk of falling and sustaining associated injuries, and Maintained independence and improved quality of life. To find a Yonathan Chi program in your area or additional resources about fall prevention please contact: Violence and Injury Prevention Program at [phone] or [email or web address] in this encounter Summary Purpose Family History No Family History Records Found Relationship Condition Age at Onset Recorded Date/T janette mother Arthritis Unknown Malignant neoplasm Unknown Osteoporosis Unknown brother Diabetes mellitus Unknown Advance Directives No Advanced Directives Records FoundDocuments on File Type Date Recorded Patient Mortgage Protection Sales Expl anation ACP-Advance Directive 04/05/2021 12:00 AM Latest Code Status on File Code Status Date Activated Date Inactivated Comments Full Code 04/08/2021 4:39 PM Full Code 04/04/2021 8:09 PM 04/08/2021 4:39 PM Latest Code Status on File Code Status Date Activated Date Inactivated Comments Full Code 04/29/2021 11:19 AM Full Code 04/29/2021 7:55 AM 04/29/2021 11:19 AM Full Code 04/08/2021 4:39 PM 04/09/2021 2:19 PM Advance Directive Response Recorded Date/ Time Living Will Yes June 10, 2021 9:01am Power of Bin Operator No June 10 9:01am Advance Directive Response Recorded Date/ Time Living Will Yes June 10, 2021 8:01am Power of Bin Operator No June 10 8:01am Advance Directive Response Recorded Date/ Time Living Will Yes November 02 7:43pm Power of Bin Operator No November 02, 2022 7:43pm Reason for Referral Status Reason Specialty Diagnoses / Procedures Referred By Contact Referred To Contact [facility] Required Cardiac Rehabilitation Diagnoses Post PTCA NSTEMI (non-ST elevated myocardial infarction) (HCC) Bibiana Graham, DAG SPRAYER - HYDROGEN POWER PLANT MANAGER [address] [facility] [address] [place] [address] [facility] [address] [place] [address] Scheduling Instructions [facility] [address] [facility] [address] [place] [address] Status Reason Specialty Diagnoses / Procedures Referred By Contact Referred To Contact Open Specialty Services Required Cardiac Rehabilitation Diagnoses 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 Emily Greenwood, DAG SPRAYER - HYDROGEN POWER PLANT MANAGER [address] [place] [address] [facility] [address] [place] [address] Specialty Diagnoses / Procedures Referred By Contac t Referred To Contact Cardiology Diagnoses 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 Procedures Transthoracic echocardiogram (TTE) complete with contrast, bubble, strain, and 3D PRN WI ECHO TTHRC R-T 2D W/WOM-MODE COMPL SPEC&COLR D WI TTE W OR WO FOL WCON,DOPPLER Enoc, Johnathan Cervantes MD [address] [place] [address] Referral ID Status Reason Start Date Expiration Date V isits Requested Visits Authorized [id number] Closed Perform Procedure 09/21/2022 03/20/2023 1 1 Chief Complaint and Reason for Visit Chief Complaint wound Reason for Visit Adrenal adenoma 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 CHF (congestive heart failure) Diabetes History of back surgery History of cataract surgery History of heart artery stent History of respiratory failure History of total hysterectomy History of umbilical hernia repair Ulcer of abdomen wall Chief Complaint wound wound Reason for Visit Adrenal adenoma 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 CHF (congestive heart failure) Diabetes History of back surgery History of cataract surgery History of heart artery stent History of respiratory failure History of total hysterectomy History of umbilical hernia repair Ulcer of abdomen wall Adrenal adenoma 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 CHF (congestive heart failure) Diabetes History of back surgery History of cataract surgery History of heart artery stent History of respiratory failure History of total hysterectomy History of umbilical hernia repair Ulcer of abdomen wall Chief Complaint wound wound fall Reason for Visit Adrenal adenoma 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 CHF (congestive heart failure) Diabetes History of back surgery History of cataract surgery History of heart artery stent History of respiratory failure History of total hysterectomy History of umbilical hernia repair Ulcer of abdomen wall Adrenal adenoma 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 604 M79.605 Chief Complaint Admit Date bronchitis May 15, 2025 12:5 1pm Additional Source Comments Mejia Ku MD - 12/13/2017 7:21 AM Jailene Jennings MD - 12/06/2017 9:03 AM Mejia Lennon MD - 11/15/2017 11:11 AM Jailene Jennings MD - 11/05/2017 10:09 AM EST H&P Notes (unrecognized sect ion and content) INTERVAL HISTORY AND PHYSICAL Patient Name: Indira Hatch Admit Date: [id number] MR #: [id number] : 1950 The H&P has been reviewed and the patient has been examined. I concur with the findings of the H&P. There are no significant changes. It is appropriate to proceed with the planned procedure. Mejia Ku MD 12/13/2017 7:21 AM Formatting of this note may be different from the original. Subjective: Indira Hatch is a 67 y.o. female who presents to the office today for a preoperative consultation at the request of surgeon Sammy Ku M.D. who plans on performing L cataract surgery on December 13. The patient has the following known anesthesia issues: none. Patients bleeding risk: no recent abnormal bleeding. Allergies Allergen Reactions Oxycodone-Acetaminophen Other (See Comments) Projectile vomiting Cefuroxime Other reaction(s): leg cramps Ezetimibe Tetracycline Other reaction(s): itching Atorvastatin Other (See Comments) Leg cramps Current Outpatient Prescriptions: ACCU-CHEK SOFTCLIX LANCETS lancets, USE 1 EVERY DAY ( ONE TIME DAILY ), Disp: 100 each, Rfl: 3 blood sugar diagnostic strips, by Miscellaneous route 2 (two) times a day Accu Chek Ashley Plus., Disp: 100 strip, Rfl: 1 blood-glucose meter Mis, Accucheck/ E11.9, Disp: 1 each, Rfl: 0 carvedilol (COREG) 6.25 MG tablet, Take 1 tablet (6.25 mg total) by mouth 2 (two) times a day with meals., Disp: 180 tablet, Rfl: 3 glimepiride (AMARYL) 4 MG tablet, Take 1 tablet (4 mg total) by mouth daily., Disp: 90 tablet, Rfl: 3 insulin aspart (NOVOLOG) 100 unit/mL, 20 units am, 25 units pm Disp 90 day supply. (Patient taking differently: Patient takes with each meal throughout the day to equal 45 units.), Disp: 9 mL, Rfl: 3 insulin glargine (LANTUS) 100 unit/mL injection, Inject 50 (fifty) Units under the skin every morning., Disp: 10 mL, Rfl: 0 insulin syringes, disposable, 1 mL Syrg, by Miscellaneous route., Disp: , Rfl: ketorolac (ACULAR) 0.5 % ophthalmic solution, DIRECTED BY PHYSICIAN., Disp: 5 mL, Rfl: 0 lancing device Misc, 1 each by Miscellaneous route 3 (three) times a day., Disp: 300 each, Rfl: 3 magnesium oxide (MAG-OX) 400 mg tablet, Take 400 mg by mouth daily ., Disp: , Rfl: metFORMIN (GLUCOPHAGE XR) 500 MG 24 hr tablet, Take 4 tablets (2,000 mg total) by mouth daily., Disp: 360 tablet, Rfl: 3 prednisoLONE acetate (PRED FORTE) 1 % ophthalmic suspension, DIRECTED BY PHYSICIAN., Disp: 5 mL, Rfl: 0 quinapril (ACCUPRIL) 20 MG tablet, Take 0.5 (one-half) tablet (10 mg total) by mouth daily., Disp: 90 tablet, Rfl: 3 Past Medical History: Diagnosis Date Abdominal hernia Anatomical narrow angle borderline glaucoma 08/20/2015 Arthritis Bilateral dry eyes 07/06/2017 Chalazion of right upper eyelid 07/0608/20/2015 Combined forms of age-related cataract of left eye 09/29/2016 Combined forms of age-related cataract of right eye 09/29/2016 DDD (degenerative disc disease), lumbar Diabetes mellitus (HCC) DM type 2 without retinopathy (HCC) 09/29/2016 Hypertension Other and combined forms of senile cataract 08/20/2015 Ovarian cancer (HCC) chemo Overactive bladder PEM PC IOL OD 11-15-2017 11/16/2017 Past Surgical History: Procedure Laterality Date BACK SURGERY 06/03 ; 03/04/15 CATARACT IOL PHACO CLEAR CORNEA Right 11/15/2017 Procedure: RIGHT EYE PHACOEMULSIFICATION CATARACT INTRAOCULAR LENS CLEAR CORNEA; Surgeon: Mejia Ku MD; Location: [facility] Main OR; Service: Ophthalmology CHEMOTHERAPY 2003 ovarean cancer HERNIA REPAIR 05/02 ; 08/05 HYSTERECTOMY 10/31 OOPHORECTOMY VENTRAL HERNIA REPAIR 07/29/09 recurrent ventral hernia Social History Social History Marital status: Spouse name: N/A Number of children: N/A Years of education: N/A Social History Main Topics Smoking status: Current Every Day Smoker Packs/day: 0.50 Years: 44.00 Types: Cigarettes Smokeless tobacco: Never Used Comment: I have been trying to quit. Alcohol use No Drug use: No Sexual activity: Not Asked Other Topics Concern None Social History Narrative None Family History Problem Relation Age of Onset Hypertension Mother Heart disease Mother Arthritis Mother Osteoporosis Mother Diabetes Brother Heart disease Brother Cataracts Brother Cancer Paternal Aunt ovarian Stroke Maternal Grandfather Alzheimer's disease Paternal Grandmother Cancer Cousin breast Breast cancer Neg Hx Hip fracture Neg Hx Amblyopia Neg Hx Blindness Neg Hx Glaucoma Neg Hx Macular degeneration Neg Hx Retinal detachment Neg Hx Strabismus Neg Hx Surgical complications Neg Hx Anesthesia problems Neg Hx Review of Systems Constitutional: negative for fatigue, malaise Denies hearing, vision, or cognitive impairment. Eyes: + for blurred vision, no eye drainage Ears, nose, mouth, throat, and face: negative for sore throat, earache, hoarseness, nasal congestion Respiratory: negative for cough, SOB Cardiovascular: negative for chest pain, palpitations Gastrointestinal: negative for nausea, vomiting, bowel changes Genitourinary:negative for urgency, frequency Hematologic/lymphatic: negative for enlarged lymph nodes, easy bruising Musculoskeletal:+ for joint pain, no swelling, muscle pain Neurological: negative for seizures, paresthesias, numbness Behavioral/Psych: negative for depression, anxiety Endocrine: negative for polyuria, polydipsia Allergic/Immunologic: negative for runny nose, sneezing, urticaria Objective: BP 118/61 Pulse 82 Ht 5' 5 Wt 95.7 kg (211 lb) SpO2 96% BMI 35.11 kg/m General Appearance: Alert, cooperative, no distress, appears stated age Head: Normocephalic, without obvious abnormality, atraumatic Eyes: PERRL, conjunctiva/corneas clear, EOM's intact, fundi benign, both eyes Ears: Normal TM's and external ear canals, both ears Nose: Nares normal, septum midline, mucosa normal, no drainage or sinus tenderness Throat: Lips, mucosa, and tongue normal; teeth and gums normal Neck: Supple, symmetrical, trachea midline, no adenopathy; thyroid: no enlargement/tenderness/nodules; no carotid bruit or JVD Back: Symmetric, no curvature, ROM normal, no CVA tenderness Lungs: Clear to auscultation bilaterally, respirations unlabored Chest Wall: No tenderness or deformity Heart: Regular rate and rhythm, S1 and S2 normal, no murmur, rub or gallop Abdomen: Soft, non-tender, bowel sounds active all four quadrants, no masses, no organomegaly Extremities: Extremities normal, atraumatic, no cyanosis or edema Pulses: 2+ and symmetric all extremities Skin: Skin color, texture, turgor normal, no rashes or lesions Lymph nodes: Cervical, supraclavicular, and axillary nodes normal Neurologic: CNII-XII intact, normal strength, sensation and reflexes throughout Cardiographics ECG: normal sinus rhythm, no blocks or conduction defects, no ischemic changes 12/8/17 Lab Review pending Assessment: 67 y.o. female with planned surgery as above. Known risk factors for perioperative complications: Diabetes mellitus Cardiac Risk Estimation: Low. She performs over 4 METS without cardiac symptoms Plan: 1. Preoperative workup as follows hemoglobin, hematocrit, electrolytes, creatinine, glucose. 2. Change in medication regimen before surgery: She will take 1/2 Lantus and Coreg the am of surgery. Other meds she will take afterwards... 3. Cleared for surgery. Goals Addressed Most Recent HEMOGLOBIN A1C < 8 8.6 (09/06/2017) in this encounter INTERVAL HISTORY AND PHYSICAL Patient Name: Indira Hatch Admit Date: [id number] MR #: [id number] : 1950 The H&P has been reviewed and the patient has been examined. I concur with the findings of the H&P. There are no significant changes. It is appropriate to proceed with the planned procedure. Mejia Ku MD 11/15/2017 11:11 AM Formatting of this note may be different from the original. Subjective: Indira Hatch is a 66 y.o. female who presents to the office today for a preoperative consultation at the request of surgeon Dr. Richard Ku M.D. who plans on performing R cataract surgery on November 15. The patient has the following known anesthesia issues: none. Patients bleeding risk: no recent abnormal bleeding. Patient does not have objections to receiving blood products if needed. Allergies Allergen Reactions Oxycodone-Acetaminophen Other (See Comments) Projectile vomiting Cefuroxime Other reaction(s): leg cramps Ezetimibe Tetracycline Other reaction(s): itching Atorvastatin Other (See Comments) Leg cramps Current Outpatient Prescriptions: ACCU-CHEK SOFTCLIX LANCETS lancets, USE 1 EVERY DAY ( ONE TIME DAILY ), Disp: 100 each, Rfl: 3 blood sugar diagnostic strips, by Miscellaneous route 2 (two) times a day Accu Chek Ashley Plus., Disp: 100 strip, Rfl: 1 blood-glucose meter [facility], Accucheck/ E11.9, Disp: 1 each, Rfl: 0 carvedilol (COREG) 6.25 MG tablet, Take 1 tablet (6.25 mg total) by mouth 2 (two) times a day with meals., Disp: 180 tablet, Rfl: 3 glimepiride (AMARYL) 4 MG tablet, Take 1 tablet (4 mg total) by mouth daily., Disp: 90 tablet, Rfl: 3 insulin aspart (NOVOLOG) 100 unit/mL, 20 units am, 25 units pm Disp 90 day supply. (Patient taking differently: Patient takes with each meal throughout the day to equal 45 units.), Disp: 9 mL, Rfl: 3 insulin syringes, disposable, 1 mL Syrg, by Miscellaneous route., Disp: , Rfl: lancing device Misc, 1 each by Miscellaneous route 3 (three) times a day., Disp: 300 each, Rfl: 3 magnesium oxide (MAG-OX) 400 mg tablet, Take 400 mg by mouth daily ., Disp: , Rfl: metFORMIN (GLUCOPHAGE XR) 500 MG 24 hr tablet, Take 4 tablets (2,000 mg total) by mouth daily., Disp: 360 tablet, Rfl: 3 insulin glargine (LANTUS) 100 unit/mL injection, Inject 50 (fifty) Units under the skin every morning., Disp: 10 mL, Rfl: 0 quinapril (ACCUPRIL) 20 MG tablet, Take 0.5 (one-half) tablet (10 mg total) by mouth daily., Disp: 90 tablet, Rfl: 3 Past Medical History: Diagnosis Date Abdominal hernia Anatomical narrow angle borderline glaucoma 08/20/2015 Arthritis Bilateral dry eyes 07/06/2017 Chalazion of right upper eyelid 07/0608/20/2015 Combined forms of age-related cataract of left eye 09/29/2016 Combined forms of age-related cataract of right eye 09/29/2016 DDD (degenerative disc disease), lumbar Diabetes mellitus (HCC) DM type 2 without retinopathy (HCC) 09/29/2016 Hypertension Other and combined forms of senile cataract 08/20/2015 Ovarian cancer (HCC) Past Surgical History: Procedure Laterality Date BACK SURGERY 06/03 ; 03/04/15 CHEMOTHERAPY 2004 ovarean cancer HERNIA REPAIR 05/02 ; 08/05 HYSTERECTOMY 10/31 OOPHORECTOMY VENTRAL HERNIA REPAIR 07/29/09 recurrent ventral hernia Social History Social History Marital status: Spouse name: N/A Number of children: N/A Years of education: N/A Social History Main Topics Smoking status: Current Every Day Smoker Packs/day: 0.50 Years: 44.00 Types: Cigarettes Smokeless tobacco: Never Used Comment: I have been trying to quit. Alcohol use No Drug use: No Sexual activity: Not Asked Other Topics Concern None Social History Narrative Family History Problem Relation Age of Onset Hypertension Mother Heart disease Mother Arthritis Mother Osteoporosis Mother Diabetes Brother Heart disease Brother Cataracts Brother Cancer Paternal Aunt ovarian Stroke Maternal Grandfather Alzheimer's disease Paternal Grandmother Cancer Cousin breast Breast cancer Neg Hx Hip fracture Neg Hx Amblyopia Neg Hx Blindness Neg Hx Glaucoma Neg Hx Macular degeneration Neg Hx Retinal detachment Neg Hx Strabismus Neg Hx Review of Systems Constitutional: negative for fatigue, malaise Eyes: negative for blurred vision, eye drainage Ears, nose, mouth, throat, and face: negative for sore throat, earache, hoarseness, nasal congestion Respiratory: negative for cough, SOB Cardiovascular: negative for chest pain, palpitations Gastrointestinal: negative for nausea, vomiting, bowel changes Genitourinary:negative for urgency, frequency Hematologic/lymphatic: negative for enlarged lymph nodes, easy bruising Musculoskeletal:negative for joint pain, swelling, muscle pain Neurological: negative for seizures, paresthesias, numbness Behavioral/Psych: negative for depression, anxiety Endocrine: negative for polyuria, polydipsia Allergic/Immunologic: negative for runny nose, sneezing, urticaria Objective: BP 113/67 (BP Location: Left arm, Patient Position: Sitting, BP Cuff Size: Adult) Pulse 91 Temp 98.3 ?F (36.8 ?C) (Temporal) Ht 5' 5 Wt 96.2 kg (212 lb) SpO2 98% BMI 35.28 kg/m2 General Appearance: Alert, cooperative, no distress, appears stated age Head: Normocephalic, without obvious abnormality, atraumatic Eyes: PERRL, conjunctiva/corneas clear, EOM's intact, fundi benign, both eyes Ears: Normal TM's and external ear canals, both ears Nose: Nares normal, septum midline, mucosa normal, no drainage or sinus tenderness Throat: Lips, mucosa, and tongue normal; teeth and gums normal Neck: Supple, symmetrical, trachea midline, no adenopathy; thyroid: no enlargement/tenderness/nodules; no carotid bruit or JVD Back: Symmetric, no curvature, ROM normal, no CVA tenderness Lungs: Clear to auscultation bilaterally, respirations unlabored Chest Wall: No tenderness or deformity Heart: Regular rate and rhythm, S1 and S2 normal, no murmur, rub or gallop Abdomen: Soft, non-tender, bowel sounds active all four quadrants, no masses, no organomegaly Extremities: Extremities normal, atraumatic, no cyanosis or edema Pulses: 2+ and symmetric all extremities Skin: Skin color, texture, turgor normal, no rashes or lesions Lymph nodes: Cervical, supraclavicular, and axillary nodes normal Neurologic: CNII-XII intact, normal strength, sensation and reflexes throughout Predictors of intubation difficulty: Morbid obesity? no Anatomically abnormal facies? no Prominent incisors? no Receding mandible? no Short, thick neck? no Neck range of motion: normal Dentition: No chipped, loose, or missing teeth. Cardiographics ECG: normal sinus rhythm, no blocks or conduction defects, no ischemic changes Lab Review Lab Draw on 11/05/2017 Component Date Value Ref Range Status Hemoglobin 11/05/2017 12.5 12.0 - 16.0 g/dL Final Sodium 11/05/2017 139 135 - 145 mmol/L Final Potassium 11/05/2017 5.2* 3.5 - 5.1 mmol/L Final Chloride 11/05/2017 100 98 - 108 mmol/L Final Bicarbonate 11/05/2017 27 21 - 32 mmol/L Final Anion Gap 11/05/2017 17 10 - 20 mmol/L Final Glucose 11/05/2017 103* 65 - 99 mg/dL Final BUN 11/05/2017 13 8 - 25 mg/dL Final Creatinine 11/05/2017 0.66 0.60 - 1.20 mg/dL Final eGFR 11/05/2017 92 >=60 mL/min/1.73 m2 Final BUN/Creatinine Ratio 11/05/2017 19.7 10.0 - 20.0 Final Calcium 11/05/2017 10.3* 8.4 - 10.2 mg/dL Final Assessment: 66 y.o. female with planned surgery as above. Known risk factors for perioperative complications: Diabetes mellitus Cardiac Risk Estimation: Low. Pt performs greater than 4 METS without chest pain or SOB. Plan: 1. Preoperative workup as follows ECG, hemoglobin, electrolytes, creatinine, glucose. 2. Change in medication regimen before surgery: Take Accupril the am of surgery. Take 1/2 Lantus the am of surgery.. Otherwise take meds after surgery... Also take Carvedilol the am of surgery. 3.Will have her start 1/2 Accupril daily due to slight hyperkalemia but cleared for surgery..in this encounter Alexandra Hobbs RN - 12/07/2017 10:09 AM Alexandra Cuadra RN - 11/09/2017 10:16 AM EST Nursing Notes (unrecognized section and content) Our goal here at [facility] is to make your time with us as comprehensive and as pleasant for you as possible. In order for that to happen we would ask you to be aware of the following guidelines and information: ? You are to have nothing to eat or drink after midnight the night before your surgery no mints, no gum, no water, no food. ? Please take the following medications the morning of your surgery with 1-2 oz. of water: coreg; follow insulin instructions given to you by your PCP ? Please stop the following medications prior to your surgery: ? [facility] will call you the day prior to your surgery between 1-3pm with your surgery time and time of arrival. Please be sure to provide us with a good working phone number at which we can reach you. ? Report to the 1st floor Patient Registration inside the main doors the day of surgery (unless [facility] in which [facility] ? No tobacco or alcohol 24 hours prior to surgery. ? You must have someone to drive you home after your surgery. You will not be allowed to drive yourself home or use public transportation unless you have a friend or family member with you. ? Bathe/Shower with an antibacterial soap such as Dial. If you have been given a surgical soap such as Clorhexidine use as directed. Do not apply anything to the skin after bathing. ? Remove all jewelry and piercings prior to surgery. ? You may brush your teeth or rinse your mouth but do not swallow any water. ? Bring a case for any eyeglasses, contacts, dentures or hearing aids. ? Wear loose, comfortable clothing and low-heeled rubber soled shoes that have a back to them. ? Please use the main parking lot labeled Visitor Parking on the day of your surgery. If necessary you may be dropped off at the front entrance while your help desk engineer marshall the car. ? Please bring a photo ID and insurance information with you. ? If staying overnight at the hospital, please bring any personal items you will require and any assistive devices such as C-PAP, hearing aids, etc. Please feel free to call Pre-Admission Testing with any questions you may have Wednesday 8 am - 3:30 pm at [phone]. in this encounter Our goal here at [facility] is to make your time with us as comprehensive and as pleasant for you as possible. In order for that to happen we would ask you to be aware of the following guidelines and information: ? You are to have nothing to eat or drink after midnight the night before your surgery no mints, no gum, no water, no food. ? Please take the following medications the morning of your surgery with 1-2 oz. of water: __coreg, quinapril ? Please stop the following medications prior to your surgery: ? [facility] will call you the day prior to your surgery between 1-3pm with your surgery time and time of arrival. Please be sure to provide us with a good working phone number at which we can reach you. ? Report to the 1st floor Patient Registration inside the main doors the day of surgery (unless you are a in which case you go directly to the [facility] located on the 4th Floor). ? No tobacco or alcohol 24 hours prior to surgery. ? You must have someone to drive you home after your surgery. You will not be allowed to drive yourself home or use public transportation unless you have a friend or family member with you. ? Bathe/Shower with an antibacterial soap such as Dial. If you have been given a surgical soap such as Clorhexidine use as directed. Do not apply anything to the skin after bathing. ? Remove all jewelry and piercings prior to surgery. ? You may brush your teeth or rinse your mouth but do not swallow any water. ? Bring a case for any eyeglasses, contacts, dentures or hearing aids. ? Wear loose, comfortable clothing and low-heeled rubber soled shoes that have a back to them. ? Please use the main parking lot labeled Visitor Parking on the day of your surgery. If necessary you may be dropped off at the front entrance while your help desk engineer marshall the car. ? Please bring a photo ID and insurance information with you. ? If staying overnight at the hospital, please bring any personal items you will require and any assistive devices such as C-PAP, hearing aids, etc. Please feel free to call Pre-Admission Testing with any questions you may have Wednesday 8 am - 3:30 pm at [phone]. in this encounter Brief Op Note - Mejia Ku MD - 12/13/2017 8:18 AM ESTOp Note - Mejia Ku MD - 11/15/2017 12:46 PM ESTBrief Op Note - Mejia Ku MD - 11/15/2017 12:12 PM EST Miscellaneous Notes (unrecog nized section and content) Brief Post Operative Note Patient Name: Indira Hatch : 1950 (67 y.o.) Date of Service: 12/13/2017 CSN: [id number] Procedure(s): LEFT EYE PHACOEMULSIFICATION CATARACT INTRAOCULAR LENS CLEAR CORNEA Pre-Operative Diagnoses: * H25.812 Post-Operative Diagnoses: * Combined forms of age-related cataract of left eye [H25.812] Surgeon(s) and Role: * Mejia Ku MD - Primary Anesthesiologist: Peggy Roth DO INCLUSION INTERNSHIP: Art Mcdaniel CRNA Senior Audit Manager: Sherly Weller RN Scrub Person: Amy Glasgow RN: Mirtha Monique RN Brief Post Operative Note Date of Service: 12/13/2017 Clinician: Mejia Ku MD OR Staff: Senior Audit Manager: Sherly Weller RN Scrub Person: Amy Glasgow RN: Mirtha Monique RN Anesthesia Staff: Anesthesiologist: Peggy Roth DO INCLUSION INTERNSHIP: Art Mcdaniel CRNA Surgeon(s):Surgeon(s) and Role: * Mejia Ku MD - Primary Pre-Operative Diagnoses: Cataract left eye Post-Operative Diagnoses: Cataract left eye Procedure(s) performed: PEM with PC IOL left eye Dressings: Eye patch and shield Estimated Blood Loss: none Type of Anesthesia used: MAC Intra and Immediate Post-op Complications: none Mejia Ku MD 12/13/2017 8:18 AM CSN: [id number] this encounter INDIRA HATCH [facility] [id number] 1950 DATE 11/15/2017 OPERATIVE REPORT SURGEON MEJIA KU MD PREOPERATIVE DIAGNOSIS Nuclear sclerotic and cortical cataract, right eye. POSTOPERATIVE DIAGNOSIS Nuclear sclerotic and cortical cataract, right eye. OPERATIVE PROCEDURE Phacoemulsification, cataract extraction with a posterior chamber intraocular lens implant, right eye. ANESTHESIA Regional. INDICATIONS AND CONSENT The patient is a 66-year-old who saw me on 10/06/2017. At that time, she came in for re-evaluation of her cataracts, diabetes and narrow angles. She was complaining of a gradual painless decrease in vision in both eyes. She was having a moderate amount of difficulty reading fine print and telephone books. She was having a moderate amount of difficulty reading the newspaper and seeing street signs and signs in the stores. She was also having some difficulty watching television. The patient's vision was correctable to 20/25. With glare testing, she was off the chart on the medium setting. She had moderate nuclear sclerotic and cortical cataract changes. The patient was told that her best chance for visual rehabilitation was by means of phacoemulsification, cataract extraction with posterior chamber intraocular lens implant in the right eye. She was told the risks and benefits of the procedure, with the risks including infection, bleeding, bruising, glaucoma, retinal detachment, ptosis, diplopia, wound leak, macular edema, and possible loss of vision. She understood these risks and elected to proceed with the surgery. DESCRIPTION OF PROCEDURE The patient was given a periorbital block to the right eye in the preoperative holding area by Dr. Shields. A [place] balloon was placed on the eye. The patient was taken to the operative suite. The balloon was removed. The right eye was prepped and draped in a sterile fashion. The lids were steri-stripped open. A lid speculum was then placed. Paired 30 degree limbal-relaxing incisions were made at the 12:15 and 6:15 position using a 600 micron Micro Feather blade. A 3 mm vertical incision was made at the limbus at the 9 o'clock position using a 600 micron Micro Feather blade. I then entered the anterior chamber with a 2.8 mm shirley blade starting at 50% scleral depth in the vertical incision at the 9 o'clock position and then tunneling anteriorly into the anterior chamber. A continuous tear curvilinear capsulorrhexis was performed. The capsular remnant was removed using Utrata forceps. Hydrodissection and hydrodelineation were carried out. The nucleus was rotated freely. The nuclear material was removed using a divide and conquer technique of phacoemulsification. The remaining cortical material was removed using IA. The capsular bag was filled with Provisc. A Lenstec model Softec HD, 16.25 diopter posterior chamber intraocular lens was placed into the capsular bag. It centered well. Miochol was placed in the eye. The pupil came down nicely. The remaining viscoelastic was removed using IA. The corneal wound was hydrated. It was checked with pressure on both the anterior and posterior lip and found to be watertight. The lid speculum and Steri- Strips were removed. Maxitrol ointment, a patch and shield were placed on the eye. The patient went to her room in good condition. DISPOSITION The patient is to see me tomorrow in the office. She is to resume her preoperative diet and medications. She is not to do any heavy lifting or exertional activity until she sees me. She is to use aspirin as needed for pain. She was discharged in good condition. MD Jignesh CAMARILLO 11/15/2017 12:19 [id number] T 11/15/2017 13:20 DRS/MODL Brief Post Operative Note Patient Name: Indira Hatch : 1950 (66 y.o.) Date of Service: 11/15/2017 CSN: [id number] Procedure(s): RIGHT EYE PHACOEMULSIFICATION CATARACT INTRAOCULAR LENS CLEAR CORNEA Pre-Operative Diagnoses: * H25.811 Post-Operative Diagnoses: * Combined forms of age-related cataract of right eye [H25.811] Surgeon(s) and Role: * Mejia Ku MD - Primary Anesthesiologist: Amina Shields MD Scrub Person: Cami Yung RN Senior Audit Manager Orientee: Sherly Weller RN Senior Audit Manager Preceptor: Victoria Moss RN Brief Post Operative Note Date of Service: 11/15/2017 Clinician: Mejia Ku MD OR Staff: Scrub Person: Cami Yung RN Senior Audit Manager Orientee: Sherly Weller RN Senior Audit Manager Preceptor: Victoria Moss RN Anesthesia Staff: Anesthesiologist: Amina Shields MD Surgeon(s):Surgeon(s) and Role: * Mejia Ku MD - Primary Pre-Operative Diagnoses: Cataract right eye Post-Operative Diagnoses: Cataract right eye Procedure(s) performed: PEM with PC IOL right eye Dressings: Eye patch and shield Estimated Blood Loss: none Type of Anesthesia used: MAC Intra and Immediate Post-op Complications: none Mejia Ku MD 11/15/2017 12:12 PM CSN: [id number] this encounter INFORMATION SOURCE (unrecogn ized section and content) DATE CREATED AUTHOR 05/24/2018 [facility] DATE CREATED AUTHOR AUTHOR'S ORGANIZ ATION 05/24/[address] [facility] DATE CREATED AUTHOR AUTHOR'S ORGANIZ ATION 06/10/2018 [facility] DATE CREATED AUTHOR AUTHOR'S ORGANIZ ATION 06/13/2018 [facility] DATE CREATED AUTHOR AUTHOR'S ORGANIZ ATION 05/02/2021 [facility] DATE CREATED AUTHOR AUTHOR'S ORGANIZ ATION 07/21/2024 [facility] DATE CREATED AUTHOR AUTHOR'S ORGANIZ ATION 06/29/2025 [facility] DATE CREATED AUTHOR AUTHOR'S ORGANIZ ATION 07/02/2025 [facility] Ordered Prescriptions (unrec ognized section and content) Prescription Sig Dispensed Refills Start Date End Da te metFORMIN (GLUCOPHAGE) 1000 MG tablet Take 1 tablet by mouth 2 times daily (with meals) HOLD UNTIL WednesdayAPRIL 11, THEN RESTART 60 tablet 3 04/09/2021 nitroGLYCERIN (NITROSTAT) 0.[address] 1 tablet under the tongue every 5 minutes as needed for Chest pain up to max of 3 total doses. If no relief after 1 dose, call 911. 25 tablet 3 04/09/2021 ticagrelor (BRILINTA) 90 MG TABS tablet Take 1 tablet by mouth 2 times daily 60 tablet 11 04/09/2021 pantoprazole (PROTONIX) 40 MG tablet Take 1 tablet by mouth every morning (before breakfast) 30 tablet 3 04/10/2021 spironolactone (ALDACTONE) 25 MG tablet Take 1 tablet by mouth daily 30 tablet 3 04/10/2021 rosuvastatin (CRESTOR) 40 MG tablet Take 1 tablet by mouth nightly 30 tablet 3 04/09/2021 sacubitril-valsartan (ENTRESTO) 24-26 MG per tablet Take 1 tablet by mouth 2 times daily 60 tablet 0 04/09/2021 carvedilol (COREG) 12.5 MG tablet Take 1 tablet by mouth 2 times daily (with meals) 60 tablet 3 04/09/2021 aspirin 81 MG EC tablet Take 1 tablet by mouth daily 30 tablet 3 04/10/2021 Prescription Sig Dispensed Refills Start Date End Da te metFORMIN (GLUCOPHAGE) 1000 MG tablet Take 1 tablet by mouth 2 times daily (with meals) HOLD UNTIL WednesdayAPRIL 11, THEN RESTART 60 tablet 3 05/02/2021 Scheduled Active and Recently Administ ered Medications (unrecognized section and content) Medication Order 04/27/2021 04/28/2021 04/29/2021 aspirin EC tablet 81 mg 81 mg, Oral, DAILY, First dose on Wed04/29/21 at 1145, Do not crush or break. 1145 (Due) carvedilol (COREG) tablet 12.5 mg 12.5 mg, Oral, 2 TIMES DAILY WITH MEALS, First dose on Wed04/29/21 at 1145, Administer with food to minimize the risk of orthostatic hypotension 1145 (Due)1700 (Due) empagliflozin (JARDIANCE) tablet TABS 10 mg 10 mg (1 tablet), Oral, DAILY, First dose on Wed04/29/21 at 1145 1145 (Due) losartan (COZAAR) tablet 50 mg 50 mg, Oral, DAILY, First dose on Wed04/29/21 at 1145 1145 (Due) magnesium oxide (MAG-OX) tablet 400 mg 400 mg, Oral, DAILY, First dose on Wed04/29/21 at 1145 1145 (Due) pantoprazole (PROTONIX) tablet 40 mg 40 mg, Oral, DAILY BEFORE BREAKFAST, First dose on Wed04/30/21 at 0700, Do not crush or break. rosuvastatin (CRESTOR) tablet 40 mg 40 mg, Oral, NIGHTLY, First dose on Wed04/29/21 at 2099 2100 (Due) sodium chloride flush 0.9 % injection 5-40 mL 5-40 mL, Intravenous, EVERY 12 HOURS SCHEDULED (2 times per day), First dose on Wed04/29/21 at 0900, For Line Patency: Peripheral IV = 5 mL; Midline or Central Line = 10 mL/lumen. If following IV push medication, administer flush at same rate as the IV push. Flush volume is determined by type of infusion therapy being given. For non-viscous solutions use: Peripheral IV = 5 mL Midline or Central Line = 10 mL/lumen For viscous solutions (i.e. blood components, parenteral nutrition, contrast media, or after obtaining blood sample) use: Peripheral IV = 10 mL Midline or Central Line = 20 mL/lumen, Pre-Procedure(Cath) 899 ()2099 (Due) sodium chloride flush 0.9 % injection 5-40 mL 5-40 mL, Intravenous, EVERY 12 HOURS SCHEDULED (2 times per day), First dose on Wed04/29/21 at 1145, For Line Patency: Peripheral IV = 5 mL; Midline or Central Line = 10 mL/lumen. If following IV push medication, administer flush at same rate as the IV push. Flush volume is determined by type of infusion therapy being given. For non-viscous solutions use: Peripheral IV = 5 mL Midline or Central Line = 10 mL/lumen For viscous solutions (i.e. blood components, parenteral nutrition, contrast media, or after obtaining blood sample) use: Peripheral IV = 10 mL Midline or Central Line = 20 mL/lumen, Recovery(Cath) 114 (Due)2099 (Due) spironolactone (ALDACTONE) tablet 25 mg 25 mg, Oral, DAILY, First dose on Wed04/30/21 at 0900 ticagrelor (BRILINTA) tablet 90 mg 90 mg, Oral, 2 TIMES DAILY, First dose on Wed04/29/21 at 1145, ANTIPLATELET! 114 (Due)2099 (Due) vitamin D3 (CHOLECALCIFEROL) tablet 400 Units 400 Units, Oral, DAILY, First dose on Wed04/29/21 at 1145 1145 (Due) Continuous Medication Order 04/27/2021 04/28/2021 04/29/2021 0.9 % sodium chloride infusion (CANCELED) Intravenous, at 100 mL/hr, CONTINUOUS, Starting on Wed04/29/21 at 0815, Pre-Procedure(Cath) 0822 (New Bag - Prov ider: Valarie Rojas, RN)1121 (New Bag - Provider: Valarie Rojas RN)1445 (Stopped - Provider: Mandy Gilman RN) 0.9 % sodium chloride infusion Intravenous, at 100 mL/hr, CONTINUOUS, Starting on Wed04/29/21 at 1145, For 4 hours, Recovery(Cath) 1145 (Due) PRN Medication Order 04/27/2021 04/28/2021 04/29/2021 0.9 % sodium chloride infusion 25 mL, Intravenous, at 100 mL/hr, PRN, If patient receiving piggyback infusions without ordered maintenance IV fluids or with frequent/long duration piggyback infusions, Starting on Wed04/29/21 at 0755, Administer at the same rate as the piggyback being infused., Pre-Procedure(Cath) 0.9 % sodium chloride infusion 25 mL, Intravenous, at 100 mL/hr, PRN, If patient receiving piggyback infusions without ordered maintenance IV fluids or with frequent/long duration piggyback infusions, Starting on Wed04/29/21 at 1119, Administer at the same rate as the piggyback being infused., Recovery(Cath) nitroGLYCERIN (NITROSTAT) SL tablet 0.4 mg 0.4 mg, Sublingual, EVERY 5 MIN PRN, Chest pain, Starting on Wed04/29/21 at 1116, Place 1 tablet under tongue upon chest pain, wait 5 minutes and may repeat up to 3 doses in 15 minutes. Do not crush or break. sodium chloride flush 0.9 % injection 5-40 mL 5-40 mL, Intravenous, PRN, Line Care, After every IV line use, Starting on Wed04/29/21 at 0755, For Line Patency: Peripheral IV = 5 mL; Midline or Central Line = 10 mL/lumen. If following IV push medication, administer flush at same rate as the IV push. Flush volume is determined by type of infusion therapy being given. For non-viscous solutions use: Peripheral IV = 5 mL Midline or Central Line = 10 mL/lumen For viscous solutions (i.e. blood components, parenteral nutrition, contrast media, or after obtaining blood sample) use: Peripheral IV = 10 mL Midline or Central Line = 20 mL/lumen, Pre-Procedure(Cath) sodium chloride flush 0.9 % injection 5-40 mL 5-40 mL, Intravenous, PRN, Line Care, Starting on Wed04/29/21 at 1119, For Line Patency: Peripheral IV = 5 mL; Midline or Central Line = 10 mL/lumen. If following IV push medication, administer flush at same rate as the IV push. Flush volume is determined by type of infusion therapy being given. For non-viscous solutions use: Peripheral IV = 5 mL Midline or Central Line = 10 mL/lumen For viscous solutions (i.e. blood components, parenteral nutrition, contrast media, or after obtaining blood sample) use: Peripheral IV = 10 mL Midline or Central Line = 20 mL/lumen, Recovery(Cath) Source Comments (unrecognize d section and content) In the event this informatio n is protected by the Federal Confidentiality of Alcohol and Drug Abuse Patient Records regulations: The Federal rules restrict any use of the information to criminally investigate or prosecute any alcohol or drug abuse patient.[facility] HospitalIn the event this information is protected by the Federal Confidentiality of Alcohol and Drug Abuse Patient Records regulations: The Federal rules restrict any use of the information to criminally investigate or prosecute any alcohol or drug abuse patient.[facility] Teams (unrecognized sec tion and content) [employer] Leader Relationship Specialty Start Date End Date Cherie Deluca [address] [place] [address] PCP - General Family Practice 09/07/18 [employer] Leader Relationship Specialty Start Date End Date Cherie Deluca [address] [place] [address] PCP - General Family Practice 09/07/18 [employer] Leader Relationship Specialty Start Date End Date Cherie Deluca [address] [place] [address] PCP - General 04/09/21 [employer] Leader Relationship Specialty Start Date End Date Cherie Deluca [address] [place] [address] PCP - General 04/09/21 [employer] Leader Relationship Specialty Start Date End Date Cherie Deluca [address] [place] [address] PCP - General 04/09/21 [employer] Leader Relationship Specialty Start Date End Date Cherie Deluca [address] [place] [address] PCP - General 04/09/21 [employer] Leader Relationship Specialty Start Date End Date Cherie Deluca [address] [place] [address] PCP - General 04/09/21 Team Status: Active Member Role Status Dates Dr. Cherie Deluca MD Family Provider Active Dr. Cherie Deluca MD Primary Care Provider Active Team Status: Active Member Role Status Dates Dr. Cherie Deluca MD Primary Care Provider Active Dr. Elijah Eden MD Attending Provider Active Dr. Yonis Schaffer DPM Referring Provider Active Team Status: Inactive Member Role Status Dates Dr. Cherie Deluca MD Primary Care Provider, Attendin g Provider Active Team Status: Inactive Member Role Status Dates Dr. Cherie Deluca MD Primary Care Provider Active Dr. oYnis Schaffer DPM Attending Provider, Referring Provider Active [employer] Leader Relationship Specialty Start Date End Date Cherie Deluca [address] [place] [address] PCP - General 04/09/21 [employer] Leader Relationship Specialty Start Date End Date Cherie Deluca [address] [place] [address] PCP - General 04/09/21 [employer] Leader Relationship Specialty Start Date End Date Cherie Deluca [address] [place] [address] PCP - General 04/09/21 [employer] Leader Relationship Specialty Start Date End Date Cherie Deluca [address] [place] [address] PCP - General 04/09/21 [employer] Leader Relationship Specialty Start Date End Date Cherie Deluca [address] [place] [address] PCP - General 04/09/21 [employer] Leader Relationship Specialty Start Date End Date Cherie Deluca [address] [place] [address] PCP - General 04/09/21 [employer] Leader Relationship Specialty Start Date End Date [facility] [address] [facility] [address] [place] [phone] PCP - General 04/09/21 [employer] Leader Relationship Specialty Start Date End Date [facility]rie Deluca [address] [facility] [address] [place] [phone] PCP - General 04/09/21 Team Status: Active Member Role Status Dates Dr. Cherie Deluca MD Family Provider Active Dr. Gallito Jacobson MD Primary Care Provider Active Team Status: Inactive Member Role Status Dates Dr. Gallito Jacobson MD Primary Care Provider Active Start: May 15, 2025 End: May 15, 2025 Dr. Gallito Jacobson MD Attending Provider Active Start: May 15, 2025 End: May 15, 2025 Dr. Gallito Jacobson MD Referring Provider Active Start: May 15, 2025 End: May 15, 2025 [employer] Leader Relationship Specialty Start Date End Date Cherie Deluca [address] [address] [place] [phone] PCP - General 04/09/21 Goals (unrecognized section and content) Goals may be documented in a n alternate sectionGoals may be documented in an alternate sectionGoals may be documented in an alternate sectionGoals may be documented in an alternate sectionGoals may be documented in an alternate sectionGoals may be documented in an alternate section Reason for Visit (unrecogniz ed section and content) Reason Comments Med Refill Reason Onset Date Comments Med Refill 07/08/2023 Reason Comments 9 month follow up Hypertension Hyperlipidemia Coronary Artery Disease Cardiomyopathy Reason Onset Date Comments Med Refill 07/24/2024 Reason Comments Annual Exam Hypertension Hyperlipidemia Coronary Artery Disease Cardiomyopathy Reason Onset Date Comments Med Refill 07/01/2025 FOR RECORDS PERTAINING TO PATIENTS WHO ARE OR HAVE BEEN ENROLLED IN A CHEMICAL DEPENDENCY/SUBSTANCEABUSE PROGRAM, SOME INFORMATION MAY BE OMITTED. This clinical summary was aggregated from multiple sources. Caution should be exercised in using it in the provision of clinical care. This summary normalizes information from multiple sources, and as a consequence, information in this document may materially change the coding, format and clinical context of patient data. In addition, data may be omitted in some cases. CLINICAL DECISIONS SHOULD BE BASED ON THE PRIMARY CLINICAL RECORDS. [facility] [employer] [facility]. provides no warranty or guarantee of the accuracy or completeness of information in this document.
--- OUTSIDE RECORDS SUMMARY | 2025-07-04 07:22 | XMS RPT_ITS | CCD ---
Author Organization [facility] Providers Care House Manager Name Role Phone Jailene Diez Unavailable Unavailable [...] Unavailable CHARY, JAILENE BOB Unavailable Unavailable CHARY, AJILENE BOB Unavailable Unavailable CHARY, JAILENE BOB Unavailable Unavailable CHARY, JAILENE BOB Unavailable Unavailable CHARY, JAILENE BOB Unavailable Unavailable KU, MEJIA RICHARD Unavailable Unavailable CHARY, JAILENE BOB Unavailable Unavailable CHARY, JAILENE BOB Unavailable Unavailable CHARY, JAILENE OBB Unavailable Unavailable CHARY, JAILENE BOB Unavailable Unavailable CHARY, JAILENE BOB Unavailable Unavailable CHARY, JAILENE BOB Unavailable Unavailable CHARY, JAILENE BOB Unavailable Unavailable CHARY, JAILENE BOB Unavailable Unavailable CHARY, JAILENE BOB Unavailable Unavailable CHARY, JAILENE BOB Unavailable Unavailable CHARY, JAILENE BOB Unavailable Unavailable CHARYJAILENE BOB Unavailable Unavailable CHARY, JAILENE BOB Unavailable Unavailable CHARY, JAILENE BOB Unavailable Unavailable CharyJailene Bob Primary Care Provider Jailene Diez Unavailable Cherie Deluca S Primary Care Provider Yosi, Cherie S Primary Care Provider Cherie Deluca Shayna Primary Care Provider Cherie Deluca S Primary Care Provider [phone] Cherie Deluca S Primary Care Provider Dr. Cherie Deluca Primary Care Provider Dr. [...] Referring Unavailable Gallito Jacobson Attending Unavailable Gallito aJcobson Primary Care Unavailable Jolliff, Cherie S Referring [...] 15 Other (See Comments), Nausea And Vomiting [facility] Work Phone: (20 sources) atorvastatin; Translations: [ATORVASTATIN] Propensity to adverse reactions to drug 08-20-20 15 Other (See Comments) [facility] Work Phone: (20 sources) cefuroxime; Translations: [CEFUROXIME] Propensity to adverse reactions to drug 08-20-20 15 Other [facility] Work Phone: (20 sources) ezetimibe; Translations: [EZETIMIBE] Propensity to adverse reactions to drug 08-20-20 15 [facility] Work Phone: (20 sources) tetracycline; Translations: [TETRACYCLINE] Propensity to adverse reactions to drug 08-20-20 15 Itching [facility] Work Phone: (11 sources) ADHESIVE TAPE-SILICONES; Translations: [ADHESIVE TAPE-SILICONES] Propensity to adverse reactions to drug 12-13-19 18 Other (See Comments) [facility] Work Phone: (6 sources) Acetaminophen Drug Allergy 04-03-20 [address] [facility] (20 sources) oxyCODONE Drug Allergy 01-18-20 [address] [facility] Work Phone: (18 sources) atorvastatin Drug Allergy 10-27-20 [facility] (8 sources) Rosuvastatin calcium; Translations: [ROSUVASTATIN] Propensity to adverse reactions 10-27-20 [facility] (19 sources) sacubitril / valsartan; Translations: [SACUBITRIL-VALSA RTAN] Drug Allergy 10-27-20 22 Nausea And Vomiting [facility] (18 sources) Tetracycline (class of antibiotic) Drug Intolerance 08-20-20 15 [facility] (14 sources) Acetaminophen Drug Allergy 01-18-20 20 Nausea And Vomiting [facility] (11 sources) rosuvastatin Drug Allergy 10-27-20 22 [facility] (9 sources) Lisinopril; Translations: [LISINOPRIL] Drug Allergy 01-08-20 24 Cough [facility] (1 source) Acetaminophen Drug Allergy 11-02-[address] [facility] Rep[facility] (1 source) Cefuroxime Drug Allergy 11-02-[address] [facility] (1 source) oxyCODONE Drug Allergy 11-02-[address] [facility] (1 source) Tetracycline Drug Allergy 11-02-[address] [facility] Medications Current Medications Medication Drug Class(es) [...] Meter (4 sources) Start: 11-01-2015 blood-glucose meter [facility] [place] Indications: Type 2 diabetes mellitus without complication (HCC) Accucheck/ E11.9 1 each 0 11/01/2015 Active blood-glucose meter Mis (18 sources) Start: 11-01-2015 blood-glucose meter [facility] [place] Indications: Type 2 diabetes mellitus without complication (HCC) Accucheck/ E11.9 1 each 0 11/01/2015 Active carvedilol 12.5 mg oral tablet (20 sources) alpha-Adrenergic Laurel, beta-Adrenergic Laurel Start: 06-10-2021 End: 10-06-2025 take 1 tablet by mouth in the morning carvedilol (Coreg) 12.5 MG tablet Indications: 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 Take 1 tablet [...] MG tablet Indications: 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 Take 1 tablet [...] First dose on Wed04/29/21 at 1145 Mag Fe-Kdiohct-Dixchnkkt-E-B il (5 sources) Start: 06-10-2021 Mag Ox-Calcium -Eswhupppt-O-Hxg Active 400 PO June 09, 2021 11:00pm Start: 06-10-2021 Mag Ox-Calcium -Florrhfov-W-Quw Active 400 PO June 10, 2021 12:00am Mag Sn-Wnmqgcb-Ehytujwkb-E-B il 300 mg-600 mg- 100 mg/15 mL Suspension (1 source) Start: 06-10-2021 Mag Gp-Geajoik-Qibufwpxz-E-Jigar 300 mg-600 mg- 100 mg/15 mL Suspension [...] PROTONIX) tablet 40 mg polyethylene glycol [id number] [id number] mg powder for oral solution (1 source) Osmotic Laxative Start: 04-04-2021 polyethylene glycol (GLYCOLAX) packet 17 g pravastatin sodium 40 mg oral tablet (19 sources) HMG-CoA Reductase Inhibitor Start: 10-05-2022 End: 12-08-2025 take 1 tablet by mouth once daily in the evening pravastatin (Pravachol) 40 MG tablet Indications: 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 [facility] will follow up to set up refill for 1 mg semaglutide in the coming weeks. Patient will be seen in office for follow up 07/25/25. Thanks! John Normal [facility] 36on 06-27-2024 36 KEITH 07/25/24, NOV 07/25/25, Labs 07/19/24. Rx pended. Normal [facility] CBC W/Diff, Automatedon 05-31 Absolute Lymph 1.75 X10 3/uL Normal 0.83-4.[address] [facility] Comment on above: Order Comment: Order Date: 06/27/25 Order Info: 0184-1 - CBCD Performed By: #### L 100.0100, L501.9985, L509.1000, L500.4050, L500.4100 #### [facility] [address] [place], [address] Absolute Neut 3.7 X10 3/uL Normal 2.0-7.[address] [facility] Comment on above: Order Comment: Order Date: 06/27/25 Order Info: 0184-1 - CBCD Performed By: #### L 100.0100, L501.9985, L509.1000, L500.4050, L500.4100 #### [facility] [address] [place], [address] Basophils/100 WBC (Bld) 1.1 % High 0-1 [facility] Comment on above: Order Comment: Order Date: 06/27/25 Order Info: 0184-1 - CBCD Performed By: #### L 100.0100, L501.9985, L509.1000, L500.4050, L500.4100 #### [facility] [address] [place], [address] Eosinophils/100 WBC (Bld) 6.1 % High 0-[address] [facility] Comment on above: Order Comment: Order Date: 06/27/25 Order Info: 0184-1 - CBCD Performed By: #### L 100.0100, L501.9985, L509.1000, L500.4050, L500.4100 #### [facility] [address] [place], [address] Erythrocyte distribution width (RBC) [Ratio] 14.4 % Normal 11.6-14.[address] [facility] Comment on above: Order Comment: Order Date: 06/27/25 Order Info: 0184- - CBCD Performed By: #### L 100.0100, L501.9985, L509.1000, L500.4050, L500.4100 #### [facility] [address] [place], [address] Hematocrit (Bld) [Volume fraction] 40.6 % Normal 37-[address] [facility] Comment on above: Order Comment: Order Date: 06/27/25 Order Info: 0184- - CBCD Performed By: #### L 100.0100, L501.9985, L509.1000, L500.4050, L500.4100 #### [facility] [address] [place], [address] Hemoglobin (Bld) [Mass/Vol] 13.1 g/dL Normal 12.0-15.[address] [facility] Comment on above: Order Comment: Order Date: 06/27/25 Order Info: 0184-1 - CBCD Performed By: #### L 100.0100, L501.9985, L509.1000, L500.4050, L500.4100 #### [facility] [address] [place], [address] IG% 0.500 Normal 0.0-0.[address] [facility] Comment on above: Order Comment: Order Date: 06/27/25 Order Info: 0184-1 - CBCD Result Comment: IG% - Immature Granulocytes (promyelocytes, myelocytes and metamyelocytes) > 1% indicates that a LEFT SHIFT is Present. Performed By: #### L 100.0100, L501.9985, L509.1000, L500.4050, L500.4100 #### [facility] [address] [place], [address] Lymphocytes/100 WBC (Bld) 27.2 % Normal 19-[address] [facility] Comment on above: Order Comment: Order Date: 06/27/25 Order Info: 0184-1 - CBCD Performed By: #### L 100.0100, L501.9985, L509.1000, L500.4050, L500.4100 #### [facility] [address] [place], [address] MCH (RBC) [Entitic mass] 28.7 pg Normal 27.0-32.[address] [facility] Comment on above: Order Comment: Order Date: 06/27/25 Order Info: 0184-1 - CBCD Performed By: #### L 100.0100, L501.9985, L509.1000, L500.4050, L500.4100 #### [facility] [address] [place], [address] MCHC (RBC) [Mass/Vol] 32.3 g/dL Normal 32-[address] [facility] Comment on above: Order Comment: Order Date: 06/27/25 Order Info: 0184-1 - CBCD Performed By: #### L 100.0100, L501.9985, L509.1000, L500.4050, L500.4100 #### [facility] [address] [place], [address] MCV (RBC) [Entitic vol] 89.0 fL Normal 81-99 [facility] Comment on above: Order Comment: Order Date: 06/27/25 Order Info: 0184-1 - CBCD Performed By: #### L 100.0100, L501.9985, L509.1000, L500.4050, L500.4100 #### [facility] [address] [place], [address] Monocytes/100 WBC (Bld) 7.0 % Normal 0-10 [facility] Comment on above: Order Comment: Order Date: 06/27/25 Order Info: 0184-1 - CBCD Performed By: #### L 100.0100, L501.9985, L509.1000, L500.4050, L500.4100 #### [facility] [address] [place], [address] Neutrophils/100 WBC (Bld) 58.1 % Normal 47-[address] [facility] Comment on above: Order Comment: Order Date: 06/27/25 Order Info: 0184-1 - CBCD Performed By: #### L 100.0100, L501.9985, L509.1000, L500.4050, L500.4100 #### [facility] [address] [place], [address] Nucleated RBC (Bld) [#/Vol] 0 10*3/uL Normal 0-[address] [facility] Comment on above: Order Comment: Order Date: 06/27/25 Order Info: 0184-1 - CBCD Performed By: #### L 100.0100, L501.9985, L509.1000, L500.4050, L500.4100 #### [facility] [address] [place], [address] Platelet mean volume (Bld) [Entitic vol] 12.5 fL High 6.2-12.[address] [facility] Comment on above: Order Comment: Order Date: 06/27/25 Order Info: 0184-1 - CBCD Performed By: #### L 100.0100, L501.9985, L509.1000, L500.4050, L500.4100 #### [facility] [address] [place], [address] Platelets (Bld) [#/Vol] 187 10*3/uL Normal 150-[address] [facility] Comment on above: Order Comment: Order Date: 06/27/25 Order Info: 0184-1 - CBCD Performed By: #### L 100.0100, L501.9985, L509.1000, L500.4050, L500.4100 #### [facility] [address] [place], [address] RBC (Bld) [#/Vol] 4.56 10*6/uL Normal 4.2-5.4 [facility] Comment on above: Order Comment: Order Date: 06/27/25 Order Info: 0184-1 - CBCD Performed By: #### L 100.0100, L501.9985, L509.1000, L500.4050, L500.4100 #### [facility] [address] [place], [address] RDW SD 46.9 fl High 35.1-43.[address] [facility] Comment on above: Order Comment: Order Date: 06/27/25 Order Info: 0184- - CBCD Performed By: #### L 100.0100, L501.9985, L509.1000, L500.4050, L500.4100 #### [facility] [address] [place], [address] WBC (Bld) [#/Vol] 6.4 10*3/uL Normal 4.4-11.0 [facility] Comment on above: Order Comment: Order Date: 06/27/25 Order Info: 0184-1 - CBCD Performed By: #### L 100.0100, L501.9985, L509.1000, L500.4050, L500.4100 #### [facility] [address] [place], [address] Comprehensive Metabolic Prof ilon 06-27-2025 Albumin [Mass/Vol] 4.1 g/dL Normal 3.4-4.8 [facility] Comment on above: Order Comment: Order Date: 06/27/25 Order Info: 0786- - CMP Order Info: [id number] - LIPID Performed By: #### L 100.0100, L501.9985, L509.1000, L500.4050, L500.4100 #### [facility] [address] [place], [address] Albumin/Globulin [Mass ratio] 1.5 {ratio} Normal 0.9-2.[address] [facility] Comment on above: Order Comment: Order Date: 06/27/25 Order Info: 0786- - CMP Order Info: [id number] - LIPID Performed By: #### L 100.0100, L501.9985, L509.1000, L500.4050, L500.4100 #### [facility] [address] [place], [address] ALK PHOS 43 U/L Normal 35-[address] [facility] Comment on above: Order Comment: Order Date: 06/27/25 Order Info: 0786- - CMP Order Info: [id number] - LIPID Performed By: #### L 100.0100, L501.9985, L509.1000, L500.4050, L500.4100 #### [facility] [address] [place], [address] ALT [Catalytic activity/Vol] 9 U/L Normal <=[address] [facility] Comment on above: Order Comment: Order Date: 06/27/25 Order Info: 0786- - CMP Order Info: [id number] - LIPID Performed By: #### L 100.0100, L501.9985, L509.1000, L500.4050, L500.4100 #### [facility] [address] [place], [address] AST [Catalytic activity/Vol] 14 U/L Normal <=[address] [facility] Comment on above: Order Comment: Order Date: 06/27/25 Order Info: 0786-1 - CMP Order Info: [id number] - LIPID Performed By: #### L 100.0100, L501.9985, L509.1000, L500.4050, L500.4100 #### [facility] [address] [place], [address] Bilirubin [Mass/Vol] 0.55 mg/dL Normal 0.00-1.30 [facility] Comment on above: Order Comment: Order Date: 06/27/25 Order Info: 0786- - CMP Order Info: [id number] - LIPID Performed By: #### L 100.0100, L501.9985, L509.1000, L500.4050, L500.4100 #### [facility] [address] [place], [address] BUN/CRE 28.9 RATIO High 10-[address] [facility] Comment on above: Order Comment: Order Date: 06/27/25 Order Info: 0786- - CMP Order Info: [id number] - LIPID Performed By: #### L 100.0100, L501.9985, L509.1000, L500.4050, L500.4100 #### [facility] [address] [place], [address] Calcium [Mass/Vol] 10.1 mg/dL Normal 7.6-11.0 [facility] Comment on above: Order Comment: Order Date: 06/27/25 Order Info: 0786-1 - CMP Order Info: [id number] - LIPID Performed By: #### L 100.0100, L501.9985, L509.1000, L500.4050, L500.4100 #### [facility] [address] [place], [address] Chloride [Moles/Vol] 103 mmol/L Normal 98-108 [facility] Comment on above: Order Comment: Order Date: 06/27/25 Order Info: 0786-1 - CMP Order Info: [id number] - LIPID Performed By: #### L 100.0100, L501.9985, L509.1000, L500.4050, L500.4100 #### [facility] [address] [place], [address] CO2 [Moles/Vol] 23.2 mmol/L Normal 21.0-32.[address] [facility] Comment on above: Order Comment: Order Date: 06/27/25 Order Info: 0786- - CMP Order Info: [id number] - LIPID Performed By: #### L 100.0100, L501.9985, L509.1000, L500.4050, L500.4100 #### [facility] [address] [place], [place], [address] Creatinine [Mass/Vol] 0.83 mg/dL Normal 0.70-1.[address] [facility] Comment on above: Order Comment: Order Date: 06/27/25 Order Info: 0786- - CMP Order Info: [id number] - LIPID Performed By: #### L 100.0100, L501.9985, L509.1000, L500.4050, L500.4100 #### [facility] [address] [place], [place], [address] GAP 13 Normal 5-[address] [facility] Comment on above: Order Comment: Order Date: 06/27/25 Order Info: 0786- - CMP Order Info: [id number] - LIPID Performed By: #### L 100.0100, L501.9985, L509.1000, L500.4050, L500.4100 #### [facility] [address] [place], [address] GFR/1.73 sq M.predicted among non-blacks MDRD (S/P/Bld) [Vol rate/Area] 74 mL/min/{1.73_m2} Normal >60 [facility] Comment on above: Order Comment: Order Date: 06/27/25 Order Info: 0786- - CMP Order Info: [id number] - LIPID Result Comment: mL/m in/1.73m2 CKD-EPI Creatinine Equation (2020) Performed By: #### L 100.0100, L501.9985, L509.1000, L500.4050, L500.4100 #### [facility] [address] [place], [address] Globulin (S) [Mass/Vol] 2.7 g/dL Normal 2.2-4.2 [facility] Comment on above: Order Comment: Order Date: 06/27/25 Order Info: 07 - CMP Order Info: [id number] - LIPID Performed By: #### L 100.0100, L501.9985, L509.1000, L500.4050, L500.4100 #### [facility] [address] [place], [address] Glucose [Mass/Vol] 191 mg/dL High 70-99 [facility] Comment on above: Order Comment: Order Date: 06/27/25 Order Info: 0786 - CMP Order Info: [id number] - LIPID Performed By: #### L 100.0100, L501.9985, L509.1000, L500.4050, L500.4100 #### [facility] [address] [place], [address] Potassium [Moles/Vol] 4.2 mmol/L Normal 3.3-5.[address] [facility] Comment on above: Order Comment: Order Date: 06/27/25 Order Info: [id number] - CMP Order Info: [id number] - LIPID Performed By: #### L 100.0100, L501.9985, L509.1000, L500.4050, L500.4100 #### [facility] [address] [place], [address] Sodium [Moles/Vol] 139 mmol/L Normal 133-145 [facility] Comment on above: Order Comment: Order Date: 06/27/25 Order Info: 0786-1 - CMP Order Info: [id number] - LIPID Performed By: #### L 100.0100, L501.9985, L509.1000, L500.4050, L500.4100 #### [facility] [address] [place], [address] T PROT 6.8 g/dL Normal 5.9-8.[address] [facility] Comment on above: Order Comment: Order Date: 06/27/25 Order Info: 0786-1 - CMP Order Info: [id number] - LIPID Performed By: #### L 100.0100, L501.9985, L509.1000, L500.4050, L500.4100 #### [facility] [address] [place], [place], [address] Urea nitrogen [Mass/Vol] 24 mg/dL High 4-[address] [facility] Comment on above: Order Comment: Order Date: 06/27/25 Order Info: 0786-1 - CMP Order Info: [id number] - LIPID Performed By: #### L 100.0100, L501.9985, L509.1000, L500.4050, L500.4100 #### [facility] [address] [place], [address] Hemoglobin A1con 06-27-2025 HbA1c (Bld) [Mass fraction] 7.3 % High <=5.[address] [facility] Comment on above: Order Comment: Order Date: 06/27/25 Order Info: [id number] - A1C Result Comment: Norm al < 5.7 % Prediabetic 5.7 - 6.4 % Diabetic >or= 6.5 % Please note range changes. Performed By: #### L 100.0100, L501.9985, L509.1000, L500.4050, L500.4100 #### [facility] [address] [place], [address] Lipid Profileon 06-27-2025 CHOL:HDL 3.[address] [facility] Comment on above: Order Comment: Order Date: 06/27/25 Order Info: 0786-1 - CMP Order Info: [id number] - LIPID Performed By: #### L 100.0100, L501.9985, L509.1000, L500.4050, L500.4100 #### [facility] [address] [place], [address] Cholesterol [Mass/Vol] 121 mg/dL Normal <=200 [facility] Comment on above: Order Comment: Order Date: 06/27/25 Order Info: 0786-1 - CMP Order Info: [id number] - LIPID Result Comment: Chol esterol level, Desirable <200 mg/dL Borderline high cholesterol 200-239 mg/dL High cholesterol >=240 mg/dL Recommendations of the NCEP Adult Treatment Panel for the following risk-cutoff thresholds for the [place] population. Performed By: #### L 100.0100, L501.9985, L509.1000, L500.4050, L500.4100 #### [facility] [address] [place], [place], [id number] (227) Cholesterol in HDL [Mass/Vol] 40 mg/dL Normal [facility] Comment on above: Order Comment: Order Date: 06/27/25 Order Info: 0786-1 - CMP Order Info: [id number] - LIPID Result Comment: Ade onal Cholesterol Education Program (NCEP) guidelines: <40 mg/dL: Low HDL-cholesterol (major risk factor for CHD) >= 60 mg/dL: High HDL-cholesterol (negative risk factor for CHD) HDL-cholesterol is affected by a number of factors, e.g. smoking, exercise, hormones, sex and age. Performed By: #### L 100.0100, L501.9985, L509.1000, L500.4050, L500.4100 #### [facility] [address] [place], [address] Cholesterol in LDL [Mass/Vol] 52 mg/dL Normal [facility] Comment on above: Order Comment: Order Date: 06/27/25 Order Info: 0786-1 - CMP Order Info: [id number] - LIPID Result Comment: Bord jizsxt=691-194 mg/dL Higher Jazt=067 mg/dL or greater Friedwald Equation for LDL-C Performed By: #### L 100.0100, L501.9985, L509.1000, L500.4050, L500.4100 #### [facility] [address] [place], [address] Cholesterol in VLDL [Mass/Vol] 29 mg/dL Normal 5-[address] [facility] Comment on above: Order Comment: Order Date: 06/27/25 Order Info: 0786- - CMP Order Info: [id number] - LIPID Performed By: #### L 100.0100, L501.9985, L509.1000, L500.4050, L500.4100 #### [facility] [facility] [address] [place], [address] Triglyceride [Mass/Vol] 144 mg/dL Normal [facility] Comment on above: Order Comment: Order Date: 06/27/25 Order Info: [id number] - CMP Order Info: [id number] - LIPID Result Comment: The drugs N-Acetylcysteine and Metamizole may falsely depress this assay. Normal range: <150 mg/dL Borderline High: 150-199 mg/dL High: 200-499 mg/dL Very High: >500 mg/dL Performed By: #### L 100.0100, L501.9985, L509.1000, L500.4050, L500.4100 #### [facility] [address] [place], [address] Microalb:Creat Ratio,Random URon 06-27-2025 Creatinine [Mass/Vol] 37.00 mg/dL Normal 28.00- 217.[address] [facility] Comment on above: Order Comment: Order Date: 06/27/25 Order Info: [id number] - MIALB Performed By: #### L 506.1001, L502.0250, L400.0001 #### [facility] [address] [place], [address] MALB:CREAT UNABLE TO CALCULATE Normal <30 mg/g CRE [facility] Comment on above: Order Comment: Order Date: 06/27/25 Order Info: [id number] - MIALB Performed By: #### L 506.1001, L502.0250, L400.0001 #### [facility] [address] [place], [address] MICROALBUMIN,UR < 12.0 Normal <20 mg/L [facility] Comment on above: Order Comment: Order Date: 06/27/25 Order Info: [id number] - MIALB Performed By: #### L 506.1001, L502.0250, L400.0001 #### [facility] [address] [place], [address] PTHINon 06-27-2025 PTH 22 pg/mL Normal 11-[address] [facility] Comment on above: Order Comment: Order Date: 06/27/25 Order Info: [id number] - PTHIN Performed By: #### L 100.0100, L501.9985, L509.1000, L500.4050, L500.4100 #### [facility] [address] [place], [address] Urinalysis, Completeon 06-27 EPI,SQUAMOUS 0-5 SEEN Normal 5-[address] [facility] Comment on above: Order Comment: CLEAN CATCH Performed By: #### L 506.1001, L502.0250, L400.0001 #### [facility] [address] [place], [address] RBC 0-5 SEEN Normal 0-[address] [facility] Comment on above: Order Comment: CLEAN CATCH Performed By: #### L 506.1001, L502.0250, L400.0001 #### [facility] [address] [place], [address] WBC 0-5 SEEN Normal 0-[address] [facility] Comment on above: Order Comment: CLEAN CATCH Performed By: #### L 506.1001, L502.0250, L400.0001 #### [facility] [address] [place], [address] BACTERIA 0 SEEN Normal None Seen [facility] Comment on above: Order Comment: CLEAN CATCH Performed By: #### L 506.1001, L502.0250, L400.0001 #### [facility] [address] [place], [address] Mucus Ql (Urine sed) 0 SEEN Normal [facility] Comment on above: Order Comment: CLEAN CATCH Performed By: #### L 506.1001, L502.0250, L400.0001 #### [facility] [address] [place], [address] Vitamin D,25 Hydroxyon 06-27 Vitamin D 25-OH 29.3 ng/mL Low 30-[address] [facility] Comment on above: Order Comment: Order Date: 06/27/25 Order Info: [id number] - CMP Order Info: [id number] - LIPID Result Comment: Chasity min D Status Deficiency: <20 ng/mL (50nmol/L) Insufficiency: 20-30 ng/mL (50-75 nmol/L) Sufficiency: 30-100 ng/mL (75-250 nmol/L) Toxicity: >100 ng/mL (>250 nmol/L) Performed By: #### L 506.1001, L502.0250, L400.0001 #### [facility] [address] [place], [address] 36on 06-24-2025 36 Spoke with patient upon [...] or concerns in the interim. Thanks! John [facility] Chest PA and Lateralon 05-15 Chest PA and Lateral [facility] Imaging Services [address] [place] [address] Chest PA and Lateral MR#: [id number] Acct: [id number] Name: INDIRA HATCH JUAN Rep #: [id number] : 1950 F 74 From: Emily parekh MD PCP: Dr. Gallito Jacobson MD Status: REG CLI Study: Chest PA and Lateral Date of Exam: 05/15/25 Exam# [id number] Ordering Dr: Gallito Jacobson MD PROCEDURE: CHEST [...] basilar atelectatic pulmonary changes, unchanged. Reading [facility] CC: Dr. 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 Rx pended. [facility] 36on 08-21-2024 36 KEITH KV 07/26/24 NOV KV 07/25/25 Labs 07/19/24 Rx Pending Normal [facility] ECG 12 lead - CLINIC PERFORM EDon 07-26-2024 Sinus Rhythm Low voltage in precordial leads. [facility] Office Visiton 07-26-2024 Follow-up visit [id number] Shoshana Hatch izabella Jacobs 1950 F Date Provider Department Center 07/26/2024 [id number]-EOMPXHJOHNATHAN STUBBS GIULIANA [facility] SHMGCV 95 Ar Family History Problem Relation Age of Onset Coronary artery disease Mother Comments: stents Heart attack Mother Coronary artery disease Brother Comments: stents Coronary artery disease Brother 45.00 Comments: quadruple bi-pass Family Status - Relation Status Age at Mother Brother Brother Level of Service:[address] [place] OFFICE/OUTPATIENT ESTABLISHED MOD MDM 30 MIN Reason for Visit and Comments: Annual Exam [83] Hypertension [765915] Hyperlipidemia [182] Coronary Artery Disease [187] Cardiomyopathy [104] Normal [facility] 36on 07-24-2024 36 Upcoming visit 07/26 OV 07/26/2023 BMP 07/19/2024 Normal [facility] Basic metabolic 2000 panelon 07-19-2024 Anion gap [Moles/Vol] 10 mmol/L Normal 8- [facility] Comment on above: Order Comment: Speci men Type: BLOOD SPECIMEN Ordering Facility: [facility] Address: [address] [place] [address] Performed By: #### 2 4321-2 #### [facility] CLIA [id number] [address] [place] [address] [place] Calcium [Mass/Vol] 10.8 mg/dL High 8.5-10.2 [facility] Comment on above: Order Comment: Speci men Type: BLOOD SPECIMEN Ordering Facility: [facility] Address: [address] [place] [address] Performed By: #### 2 4321-2 #### [facility] CLIA [id number] [address] [place] [address] [place] Chloride [Moles/Vol] 104 mmol/L Normal 98-107 [facility] Comment on above: Order Comment: Ashwini pruett Type: BLOOD SPECIMEN Ordering Facility: [facility] Address: [address] [place] [address] Performed By: #### 2 4321-2 #### [facility] [id number] [address] [place] [address] [place] CO2 [Moles/Vol] 23 mmol/L Normal 22-30 [facility] Comment on above: Order Comment: Speci men Type: BLOOD SPECIMEN Ordering Facility: [facility] Address: [address] [place] [address] Performed By: #### 2 4321-2 #### [facility] [id number] [address] [place] [address] [place] Creatinine [Mass/Vol] 0.64 mg/dL Normal 0.58-0.96 [facility] Comment on above: Order Comment: Speci men Type: BLOOD SPECIMEN Ordering Facility: [facility] Address: [address] [place] [address] Performed By: #### 2 4321-2 #### [facility] [id number] [address] [place] [address] [place] Creatinine and Glomerular filtration rate.predicted panel (S/P/Bld) 93 mL/min/1.73m??? Normal >=60 [facility] Comment on above: Order Comment: Speci men Type: BLOOD SPECIMEN Ordering Facility: [facility] Address: [address] [place] [address] Result Comment: Ashley mated Glomerular Filtration Rate [...] GFR. Performed By: #### 2 4321-2 #### [facility] CLIA [id number] [address] [place] [address] [place] Glucose [Mass/Vol] 115 mg/dL High 74-99 [facility] Comment on above: Order Comment: Ashwini pruett Type: BLOOD SPECIMEN Ordering Facility: [facility] Address: [address] [place] [address] Result Comment: The [place] Diabetes Association (ADA) provides guidance for cutoff [...] Standards of Medical Care in Diabetes 2016, [place] Diabetes Association. Diabetes Care. 2016.39(Suppl 1). Performed By: #### 2 4321-2 #### [facility] CLIA [id number] [address] [place] [address] [place] Potassium [Moles/Vol] 4.5 mmol/L Normal 3.7-5.1 [facility] Comment on above: Order Comment: Ashwini pruett Type: BLOOD SPECIMEN Ordering Facility: [facility] Address: [address] [place] [address] Performed By: #### 2 4321-2 #### [facility] CLIA [id number] [address] [place] [address] [place] Sodium [Moles/Vol] 137 mmol/L Normal 136-144 [facility] Comment on above: Order Comment: Ashwini pruett Type: BLOOD SPECIMEN Ordering Facility: [facility] Address: [address] [place] [address] Performed By: #### 2 4321-2 #### [facility] CLIA [id number] [address] [place] [id number] [place] Urea nitrogen [Mass/Vol] 16 mg/dL Normal 7-21 [facility] Comment on above: Order Comment: Speci men Type: BLOOD SPECIMEN Ordering Facility: [facility] Address: [address] [place] [address] Performed By: #### 2 4321-2 #### [facility] CLIA [id number] [address] [id number] [facility] [place] 36on 07-11-2024 36 Spoke with patient, she continues to do well on Ozempic. It looks like Indira has not had repeat A1c since beginning Ozempic. Upon speaking with her today Indiar reiterated that her PCP would like her to continue on 0.5 mg dose moving forward. She reports some improvement in glucose control and about a 15 lb weight loss from baseline. Patient will be seen in office for 1 year follow up 07/26/24. Thanks! John [facility] SCRN MAMM (CAD)W/ALBERT BILATo n 07-05-2024 SCRN MAMM (CAD)W/ALBERT BILAT [facility] Imaging Services [address] [place] [address] SCRN MAMM (CAD)W/ALBERT BILAT MR#: [id number] Acct: [id number] Name: INDIRA HATCH Rep #: [id number] : 1950 F 73 From: Curtis Enciso MD PCP: Dr. Cherie Deluca MD Status: REG CLI Study: SCRN MAMM (CAD)W/ALBERT BILAT Date of Exam: 06/21 Exam# [id number] Ordering Dr: Cherie Deluca MD [id number] MAMMOGRAPHY - BILATERAL SCREENING 3-D TOMOSYNTHESIS REASON [...] EDT , CC: Dr. Cherie Deluca MD Pneumatic Riveter: [facility]igned [facility] ([facility] ) INDIRA HATCH ([id number]) 1950 F Date Time Provider Department 01/08/24 3:00 PM SANTIAGO LEIVA WSTR During your visit today, we recorded the following information about you: Temperature Pulse Respiration Blood pressure 98.1 degrees 88/minute 20/minute 120/52 Weight 78 kg Santiago Leiva APRN.PHARMACY MANAGER 01/08/2024 3:37 PM Signed CC: Patient [...] Patient agreeable to treatment plan. Santiago Leiva APRN.PHARMACY MANAGER Allergies As of Date: 01/08/2024 Noted [...] NAAT, UPPER RESPIRATORY, ROUTINE [SQCOVID] Order #: [id number] FUTURE INFLUENZA AANDB MOLECULAR (POC) [4265053] Order #: [id number]. #:[id number] COVID NAAT, UPPER RESPIRATORY, ROUTINE [SQCOVID] Order #: [id number]. #:[id number] oseltamivir (TAMIFLU) 75 mg capsuleTake 1 capsule by mouth two times a day for 5 days.Disp: 10 capsuleRfl: 0 Prescriptions as of 01/08/2024 - vidhi (more content not included)... Normal [facility] SARS-CoV-2 RNA Resp Ql JUNIE+p robeon 01-08-2024 SARS-CoV-2 (COVID-19) RNA JUNIE+probe Ql (Resp) COVID 19 RESULT: Not detected The method used is RT-PCR or an equivalent NAAT method. Reference Range (the expected result in uninfected individuals): Not detected Normal [facility] Comment on above: Performed By: #### 9 4500-6 #### [facility] CLIA [id number] [address] [place] [address] [place] Basophil percentageOrdered B y: Cherie Deluca on 12-20-2023 Bilirubin [Mass/Vol] 0.70 mg/dL 0.20-1.00 [facility] Comment on above: For patients on eltr ombopag therapy, use of Dimension [place] TBIL is not recommended. Chloride [Moles/Vol] 106 mmol/L 98-107 [facility] Cholesterol [Mass/Vol] 123 mg/dL <200 [facility] Comment on above: <200 mg/dL Desirable 200-240 mg/dL Borderline >240 mg/dL High Risk Glucose [Mass/Vol] 111 mg/dL 74-106 [facility] Comment on above: Fasting Glucose resu lt from 100 to 125 mg/dL suggests IMPAIRED HOMEOSTASIS per A.D.A. criteria. Potassium [Moles/Vol] 4.2 mmol/L 3.5-5.[address] [facility] Protein [Mass/Vol] 7.2 g/dL 6.4-8.2 [facility] Sodium [Moles/Vol] 139 mmol/L 136-145 [facility] Triglyceride [Mass/Vol] 195 mg/dL <199 [facility] Comment on above: The drugs N-Acetylcy steine and Metamizole may falsely depress this assay.Serum Triglycerides Reference Interval Normal <150 mg/dL Borderline high 150 - 199 mg/dL High 200 - 499 mg/dL Very High > or = 500 mg/dL Direct bilirubinOrdered By: Cherie Deluca on 12-20-2023 Bilirubin.direct [Mass/Vol] 0.20 mg/dL 0.00-0.[address] [facility] High density lipoprotein (HD L) measurementOrdered By: Cherie Deluca on 12-20-2023 Cholesterol in HDL (Body fld) [Mass/Vol] 40 mg/dL >[address] [facility] Comment on above: The drugs N-Acetylcy steine and Metamizole may falsely depress this assay. Reference Range HDL <40 mg/dL Low HDL Cholesterol HDL >or= 60 mg/dL High HDL Cholesterol Laboratory - Chemistry and C hemistry - challengeOrdered By: Cherie Deluca on 12-20-2023 ALP [Catalytic activity/Vol] 43 U/L 45-[address] [facility] ALT [Catalytic activity/Vol] 15 U/L 13-[address] [facility] CO2 [Moles/Vol] 27.0 mmol/L 21.0-32.[address] [facility] Globulin (S) [Mass/Vol] 3.8 g/dL 2.2-4.2 [facility] Urea nitrogen/Creatinine [Mass ratio] 24.1 mg/mg 10-[address] [facility] Low density lipoprotein (LDL ) cholesterol measurementOrdered By: Cherie Deluca on 12-20-2023 Cholesterol in LDL (Body fld) [Moles/Vol] 44 mg/dL 0-[address] [facility] No Panel InformationOrdered By: Cherie Deluca on 12-20-2023 Estimated GFR (MDRD) Amer 104 mL/min >[address] [facility] Comment on above: GFR Calc Estimated GFR (MDRD) Non-Af Amer 86 mL/min >[address] [facility] Comment on above: Non- GFR Calc Serum or plasma calcium jessy urement (mass/volume)Ordered By: Cherie Deluca on 12-20-2023 Calcium [Mass/Vol] 10.0 mg/dL 8.5-10.1 [facility] Serum or plasma creatinine m easurement (mass/volume)Ordered By: Cherie Deluca on 12-20-2023 Creatinine [Mass/Vol] 0.71 mg/dL 0.55-1.[address] [facility] Comment on above: The validity of the calculated GFR & GFRAA in patients over 70 years has not been determined. Clinical correlation is essential. Serum or plasma urea nitroge n measurement (mass/volume)Ordered By: Cherie Deluca on 12-20-2023 Urea nitrogen [Mass/Vol] 17 mg/dL 7-[address] [facility] Thin prep Papanicolaou smear with manual screeningOrdered By: Cherie Deluca on 12-20-2023 Thin prep Papanicolaou smear with manual screening 3.4 g/dL 3.2-5.[address] [facility] Thin prep Papanicolaou smear with manual screening 16 U/L 15-[address] [facility] Thin prep Papanicolaou smear with manual screening 6 5-[address] [facility] Thin prep Papanicolaou smear with manual screening 6.8 mg/L NO RANGE EST. [facility] Urine albumin/creatinine rat io for detection of microalbuminuriaOrdered By: Cherie Deluca on 12-20-2023 Albumin/Creatinine DL <= 1.0 mg/L (24H U) [Ratio] 10.3 mg/g CRE <[address] [facility] Urine creatinine measurement (mass/volume)Ordered By: Cherie Deluca on 12-20-2023 Creatinine (U) [Mass/Vol] 65.50 mg/dL NO RANGE EST. [facility] Very low density lipoprotein (VLDL) cholesterol measurementOrdered By: Cherie Deluca on 12-20-2023 Cholesterol in VLDL Calc [Moles/Vol] 39 mg/dL 5-[address] [facility] Basic metabolic 2000 panelon 08-03-2023 Anion gap [Moles/Vol] 11 mmol/L Normal 9-18 [facility] Comment on above: Order Comment: Speci men Type: BLOOD SPECIMEN Ordering Facility: External Submitter Address: , , Performed By: #### 2 4321-2 #### [facility] CLIA [id number] [address] [place] [address] [place] Calcium [Mass/Vol] 9.9 mg/dL Normal 8.5-10.2 [facility] Comment on above: Order Comment: Speci men Type: BLOOD SPECIMEN Ordering Facility: External Submitter Address: , , Performed By: #### 2 4321-2 #### [facility] CLIA [id number] [address] [place] [address] [place] Chloride [Moles/Vol] 103 mmol/L Normal 97-105 [facility] Comment on above: Order Comment: Speci men Type: BLOOD SPECIMEN Ordering Facility: External Submitter Address: , , Performed By: #### 2 4321-2 #### [facility] CLIA [id number] [address] [place] [address] [place] CO2 [Moles/Vol] 22 mmol/L Normal 22-30 [facility] Comment on above: Order Comment: Speci men Type: BLOOD SPECIMEN Ordering Facility: External Submitter Address: , , Performed By: #### 2 4321-2 #### [facility] CLIA [id number] [address] [place] [address] [place] Creatinine [Mass/Vol] 1.03 mg/dL High 0.58-0.96 [facility] Comment on above: Order Comment: Speci men Type: BLOOD SPECIMEN Ordering Facility: External Submitter Address: , , Performed By: #### 2 4321-2 #### [facility] [id number] [address] [place] [address] OF [facility] Creatinine and Glomerular filtration rate.predicted panel (S/P/Bld) 58 mL/min/1.73m??? Low >=60 [facility] Comment on above: Order Comment: Speci flynn [...] GFR. Performed By: #### 2 4321-2 #### [facility] CLIA [id number] [address] [place] [address] [place] Glucose [Mass/Vol] 215 mg/dL High 74-99 [facility] Comment on above: Order Comment: Ashwini pruett Type: BLOOD SPECIMEN Ordering Facility: External Submitter Address: , , Result Comment: The [place] Diabetes Association (ADA) provides guidance for cutoff [...] Standards of Medical Care in Diabetes 2016, [place] Diabetes Association. Diabetes Care. 2016.39(Suppl 1). Performed By: #### 2 4321-2 #### [facility] [id number] [address] [place] [address] [place] Potassium [Moles/Vol] 5.8 mmol/L High 3.7-5.1 [facility] Comment on above: Order Comment: Ashwini pruett Type: BLOOD SPECIMEN Ordering Facility: External Submitter Address: , , Performed By: #### 2 4321-2 #### [facility] CLIA [id number] [address] [place] [address] [place] Sodium [Moles/Vol] 136 mmol/L Normal 136-144 [facility] Comment on above: Order Comment: Ashwini pruett Type: BLOOD SPECIMEN Ordering Facility: External Submitter Address: , , Performed By: #### 2 4321-2 #### [facility] CLIA [id number] [address] [place] [address] [place] Urea nitrogen [Mass/Vol] 25 mg/dL High 7-21 [facility] Comment on above: Order Comment: Speci men Type: BLOOD SPECIMEN Ordering Facility: External Submitter Address: , , Performed By: #### 2 4321-2 #### [facility] CLIA [id number] [address] [place] [address] [place] US Heart TransthoracicOrdere d By: Rain Escobar on 10-27-2022 Ascending Aorta 3.8 cm [facility] Work Phone: [phone] Ascending Aorta Index 2.02 cm/m2 [facility] Work Phone: [phone] AV Area by Peak Velocity 2.1 cm2 [facility] Work Phone: [phone] AV Peak Gradient 4 mmHg [facility] Work Phone: [phone] AV Peak Velocity 1.0 m/s [facility] Work Phone: [phone] AV Velocity Ratio 0.70 [facility] Work Phone: [phone] DAVID/BSA Peak Velocity 1.1 cm2/m2 [facility] Work Phone: [phone] E/E' Lateral 10.60 [facility] Work Phone: [phone] E/E' Ratio (Averaged) 10.60 [facility] Work Phone: [phone] E/E' Septal 10.60 [facility] Work Phone: [phone] EF BP 55 % 55 - 100 % [facility] Work Phone: [phone] Est. RA Pressure 3 mmHg [facility] Work Phone: [phone] Fractional Shortening 2D 28 % 28 - 44 % [facility] Work Phone: [phone] Global Longitudinal Strain -15.0 % [facility] Work Phone: [phone] Interpretation and review of laboratory results Abnormal [facility] Work Phone: [phone] IVC Diameter 1.7 cm [facility] Work Phone: [phone] IVSd 1.2 cm 0.6 - 0.9 cm [facility] Work Phone: LA Appendage Area 2C 10.9 cm2 [facility] Work Phone: LA Appendage Area 4C 14.6 cm2 [facility] Work Phone: LA Diameter 3.1 cm [facility] Work Phone: LA Size Index 1.65 cm/m2 [facility] Work Phone: LA Volume 2C 25 mL 22 - 52 mL [facility] Work Phone: LA Volume 4C 40 mL 22 - 52 mL [facility] Work Phone: LA Volume A/L 39 mL [facility] Work Phone: LA Volume Index 2C 13 mL/m2 16 - 34 mL/m2 [facility] Work Phone: LA Volume Index 4C 21 mL/m2 16 - 34 mL/m2 [facility] Work Phone: LA Volume Index A/L 21 mL/m2 16 - 34 mL/m2 [facility] Work Phone: LV E' Lateral Velocity 5 cm/s [facility] Work Phone: LV E' Septal Velocity 5 cm/s [facility] Work Phone: LV EDV A2C 82 mL [facility] Work Phone: LV EDV A4C 77 mL [facility] Work Phone: LV EDV BP 82 mL 56 - 104 mL [facility] Work Phone: LV EDV Index A2C 44 mL/m2 [facility] Work Phone: LV EDV Index A4C 41 mL/m2 [facility] Work Phone: LV EDV Index BP 44 mL/m2 [facility] Work Phone: LV Ejection Fraction A2C 48 % [facility] Work Phone: LV Ejection Fraction A4C 60 % [facility] Work Phone: LV ESV A2C 43 mL [facility] Work Phone: [phone] LV ESV A4C 31 mL [facility] [...] Index 115.6 g/m2 43 - 95 g/m2 [facility] Work Phone: [phone] LV RWT Ratio 0.57 [facility] Work Phone: [phone] LVIDd 4.6 cm 3.9 - 5.3 cm [facility] Work Phone: [phone] LVIDd Index 2.45 cm/m2 [facility] Work Phone: [phone] LVIDs 3.3 cm [facility] Work Phone: 95 LVIDs Index 1.76 cm/m2 [facility] Work Phone: [phone] LVOT Area 3.1 cm2 [facility] Work Phone: [phone] LVOT Cardiac Output 3.2 liter/mi nut e [facility] Work Phone: [phone] LVOT Diameter 2.0 cm [facility] Work Phone: [phone] LVOT Mean Gradient 1 mmHg [facility] Work Phone: [phone] LVOT Peak Gradient 2 mmHg [facility] Work Phone: [phone] LVOT Peak Velocity 0.7 m/s [facility] Work Phone: [phone] LVOT Stroke Volume Index 24.1 mL/m2 [facility] Work Phone: [phone] LVOT SV 45.2 ml [facility] Work Phone: [phone] LVOT VTI 14.4 cm [facility] Work Phone: [phone] LVPWd 1.3 cm 0.6 - 0.9 cm [facility] Work Phone: [phone] MV A Velocity 0.87 m/s [facility] Work Phone: [phone] MV E Velocity 0.53 m/s [facility] Work Phone: [phone] MV E Wave Deceleration Time 217.4 ms [facility] Work Phone: [phone] MV E/A 0.61 [facility] Work Phone: [phone] MN Max Velocity 0.6 m/s [facility] Work Phone: [phone] Pulmonary Artery EDP 2 mmHg [facility] Work Phone: [phone] PV Max Velocity 0.9 m/s [facility] Work Phone: [phone] PV Peak Gradient 3 mmHg [facility] Work Phone: [phone] RV Free Wall Peak S' 10 cm/s [facility] Work Phone: [phone] RVSP 21 mmHg [facility] Work Phone: [phone] TAPSE 2.1 cm 1.7 cm [facility] Work Phone: [phone] TR Max Velocity 2.14 m/s [facility] Work Phone: [phone] TR Peak Gradient 18 mmHg [facility] Work Phone: [phone] [facility] Work Phone: [phone] Heart Transthoracicon Left Ventricle: Left ventricle [...] percentageon 2021 Cholesterol [Mass/Vol] 148 mg/dL <200 [facility] Work Phone: Comment on above: <200 mg/dL Desirable 200-240 mg/dL Borderline >240 mg/dL High Risk Triglyceride [Mass/Vol] 235 mg/dL <199 [facility] Work Phone: Comment on above: The drugs N-Acetylcy steine and Metamizole may falsely depress this assay.Serum Triglycerides Reference Interval Normal <150 mg/dL Borderline high 150 - 199 mg/dL High 200 - 499 mg/dL Very High > or = 500 mg/dL Serum or plasma cholesterol in HDL measurement (mass/volume)on 09-16-2022 Cholesterol in HDL [Mass/Vol] 35 mg/dL >[address] [facility] Work Phone: Comment on above: The drugs N-Acetylcy steine and Metamizole may falsely depress this assay. Reference Range HDL <40 mg/dL Low HDL Cholesterol HDL >or= 60 mg/dL High HDL Cholesterol Serum or plasma cholesterol in VLDL measurement (mass/volume)on 09-16-2022 Cholesterol in VLDL [Mass/Vol] 47 mg/dL 5-[address] [facility] Work Phone: [phone] Serum or plasma low density lipoprotein (LDL) cholesterol measurement (mass/volume)on 09-16-2022 Cholesterol in LDL [Mass/Vol] 66 mg/dL 0-[address] [facility] Work Phone: MILY SCREENING W Amber 07-09 [facility] ACT,Whole Bloodon 04-30-2021 ACT,Whole Blood 333 s High 90-134 [facility] Comment on above: Result Comment: ACTB O Performed by [employer] EliteCLIA ID: [id number] [place] ACT testing is not intended for patients taking aprotonin, patients with hematocrits of <20% or >55%, patients using other types of anticoagulation medications, and patients with Lupus Anticoagulant. Performed By: #### T SH5, MBF33, CKMBS, LIPD2 #### [employer] [address] [place] [address] ACT,Whole Blood 233 s High 90-134 [facility] Comment on above: Result Comment: ACTB O Performed by [employer] EliteCLIA ID: [id number] [facility] [place] [place] ACT testing is not intended for patients taking aprotonin, patients with hematocrits of <20% or >55%, patients using other types of anticoagulation medications, and patients with Lupus Anticoagulant. Performed By: #### T SH5, MBF33, CKMBS, LIPD2 #### [employer] [address] [place] [address] CARDIAC CATH NURSING LOGOrde red By: [employer] on 04-29-2021 [facility] Work Phone: Diagnostic Catherizationon 0 04-29-2021 Diagnostic Catherization Patient Name: INDIRA TIAN Patient Support Representative ACCESSION EXAM DATE/TIME PROCEDURE ORDERING PROVIDER [id number] 04/29/2021 09:53 EDT Diagnostic Catherization MD RANJANA, ADRIANA Salgado Reason For Exam (Diagnostic Catherization) chest pain Report [facility] -------- CARDIAC CATHETERIZATION Patient: [...] disease of dominant RCA also noted. [facility] Heart Team evaluation, pt deemed poor candidate for CABG, and un derwent PCI of proximal-midLAD with CSI atherectomy and deployment of 2 overlapped JESUS. Pt returns today for staged PCI of the LCx/OM1. IMPRESSIONS: 1. Successful IVUS-guided PCI of the calcificed proximal LCx and OM1 with extensive PTCA and deployment of 2 overlapped Xience JESUS Patient Support Representative Report (3.0x33mm to proximal LCx and 2.29n58jw to proximal OM1) 2. Widely patent overlapped [...] 100cm L (more content not included)... Normal [employer] Glucose,Bedsideon 04-29-2021 Glucose [Mass/Vol] 119 mg/dL High 70-100 [employer] Comment on above: Result Comment: Test performed by glucose meter. Results may be 10%-15% lower than serum/plasma values. (CLIA ID [id number]) Performed By: #### T SH5, MBF33, CKMBS, LIPD2 #### [employer] [address] [place] [phone] POCT GlucoseOrdered By: Adriana Minor on 04-29-2021 Glucose [Mass/Vol] 119 mg/dL High 70 - 100 mg/dL [facility] Work Phone: Comment on above: Test performed by gl ucose meter. Results may be 10%-15% lower than serum/plasma values. (CLIA ID [id number]) Interpretation and review of laboratory results Abnormal [facility] Work Phone: [phone] Performed by [employer], [address] [place] [address] [facility] Work Phone: [phone] [facility] Work Phone: [phone],Whole Bloodon 04-09-2021 ACT,Whole Blood 305 s High 90-134 [facility] Comment on above: Result Comment: ACTB O Performed by [employer] EliteCLIA ID: [id number] [place], [place] ACT testing is not intended for patients taking aprotonin, patients with hematocrits of <20% or >55%, patients using other types of anticoagulation medications, and patients with Lupus Anticoagulant. Performed By: #### T SH5, MBF33, CKMBS, LIPD2 #### [employer] [address] [place] [address] ACT,Whole Blood 237 s High 90-134 [facility] Comment on above: Result Comment: ACTB O Performed by [employer] EliteCLIA ID: [id number] [place], [place] ACT testing is not intended for patients taking aprotonin, patients with hematocrits of <20% or >55%, patients using other types of anticoagulation medications, and patients with Lupus Anticoagulant. Performed By: #### A CTBO #### [employer] [address] [place] [address] ACT,Whole Blood 367 s High 90-134 [facility] Comment on above: Result Comment: ACTB O Performed by [employer] Elite[employer]IA ID: [id number] [place], [place] ACT testing is not intended for patients taking aprotonin, patients with hematocrits of <20% or >55%, patients using other types of anticoagulation medications, and patients with Lupus Anticoagulant. Performed By: #### A CTBO #### [employer] [address] [place] [address] APTTon 04-09-2021 aPTT Coag (Bld) [Time] 26.3 s Normal 20.0-30.5 [facility] Comment on above: Result Comment: NOTE : The therapeutic time for Heparin anticoagulation, based on Xa activity inhibition, is an APTT of 46-80 seconds. Performed By: #### T SH5, MBF33, CKMBS, LIPD2 #### [address] [address] [place] [address] APTTOrdered By: Emmie shah on 04-09-2021 aPTT Coag (Bld) [Time] 26.3 s 20.0 - 30.5 s [facility] Work Phone: Comment on above: NOTE: The therapeuti c time for Heparin anticoagulation, based on Xa activity inhibition, is an APTT of 46-80 seconds. Test Performed by [facility], [address] [place] [address] [facility] Work Phone: Activated clotting timeOrder ed By: Johnathan Stubbs on 04-09-2021 Activated Clotting Time 305 s High 90 - 134 s S [facility] Work Phone: Comment on above: ACTBO Performed by [employer] EliteCLIA ID: [id number] [facility] [place] ACT testing is not intended for patients taking aprotonin, patients with hematocrits of <20% or >55%, patients using other types of anticoagulation medications, and patients with Lupus Anticoagulant. Interpretation and review of laboratory results Abnormal [facility] Work Phone: Test Performed by [employer], [address] [place] [address] [facility] Work Phone: Activated Clotting Time 367 s High 90 - 134 s S [facility] Work Phone: Comment on above: ACTBO Performed by [employer] EliteCLIA ID: [id number] [facility] [place] ACT testing is not intended for patients taking aprotonin, patients with hematocrits of <20% or >55%, patients using other types of anticoagulation medications, and patients with Lupus Anticoagulant. Activated Clotting Time 237 s High 90 - 134 s S [facility] Work Phone: Comment on above: ACTBO Performed by [employer] EliteCLIA ID: [id number] [facility] [place] [place] ACT testing is not intended for patients taking aprotonin, patients with hematocrits of <20% or >55%, patients using other types of anticoagulation medications, and patients with Lupus Anticoagulant. Interpretation and review of laboratory results Abnormal [facility] Work Phone: Test Performed by [employer] [address] [facility] Work Phone: CBC Auto DifferentialOrdered By: Emmie Spring on 04-09-2021 Absolute Baso # 0.1 10*3/uL 0.0 - 0.2 10*3/uL [facility] Work Phone: Absolute Neut # 5.5 10*3/uL 1.8 - 7.0 10*3/uL [facility] Work Phone: Basophils/100 WBC (Bld) 0.9 % 0.0 - 2.0 % [facility] Work Phone: Eosinophils (Bld) [#/Vol] 0.4 10*3/uL 0. 0 - 0.5 10*3/uL [facility] Work Phone: Eosinophils/100 WBC (Bld) 4.1 % 1.0 - 6.0 % [facility] Work Phone: Granulocytes/100 WBC (Bld) 63.0 % 40.0 - 80.0 % [facility] Work Phone: Hematocrit (Bld) [Volume fraction] 38.8 % 35.0 - 47.0 % [facility] Work Phone: Hemoglobin.gastrointestin al spec 1 Ql (Stl) 12.8 g/dL 11.7 - 16.0 g/dL [facility] Work Phone: Interpretation and review of laboratory results Abnormal [facility] Work Phone: Lymphocytes (Bld) [#/Vol] 2.2 10*3/uL 1. 0 - 4.3 10*3/uL [facility] Work [phone] Lymphocytes/100 WBC (Bld) 24.9 % 20 .0 - 40.0 % [facility] Work Phone: MCH (RBC) [Entitic mass] 28.0 pg 26. 0 - 34.0 pg [facility] Work Phone: MCHC (RBC) [Mass/Vol] 33.0 % 32.0 - 36.0 % [facility] Work Phone: MCV (RBC) [Entitic vol] 84.8 fL 79.0 - 98.0 fL [facility] Work Phone: Monocytes (Bld) [#/Vol] 0.6 10*3/uL 0.0 - 0.8 10*3/uL [facility] Work Phone: Monocytes/100 WBC (Bld) 7.1 % 2.0 - 10.0 % [employer] Phone: Platelet distribution width (Bld) [Ratio] 15.3 % High 11.5 - 14.5 % [employer] Phone: Platelet mean volume (Bld) [Entitic vol] 11.0 fL High 7.4 - 10.4 fL [facility] Work Phone: Platelets (Bld) [#/Vol] 184 10*3/uL 140 - 440 10*3/uL [facility] Work Phone: RBC (Bld) [#/Vol] 4.57 10*6/uL 3.80 - 5.2 0 10*6/uL [facility] Work Phone: WBC (Bld) [#/Vol] 8.8 10*3/uL 3.6 - 10.7 10*3/uL [facility] Work Phone: Test Performed by [employer] [address] [facility] Work Phone: Catheterization and angiogra phy procedure details panelOrdered By: Adriana Minor on 04-09-2021 [facility] -------- CARDIAC CATHETERIZATION Patient: [...] SUMMARY: 70yo female diabetic smoker presented to [place] with acute systolic HF and had small NSTEMI. Prior symptoms c/w ACS/AMI 2wks prior to admission. EKG c/w recent anterior [place]. Cath showed heavily calcified proximal LAD with [...] description below (2nd (more content not included)... [facility] Work Phone: Nikita, [facility] Incoming Cardiology Results From Isabel/Noah - 04/09/2021 1:10 AM EDT [facility] [place] -------- CARDIAC CATHETERIZATION Patient: Indira Hatch Procedure [...] SUMMARY: 70yo female diabetic smoker presented to [place] with acute systolic HF and had small NSTEMI. Prior symptoms c/w ACS/AMI 2wks prior to admission. EKG c/w recent anterior [place]. Cath showed heavily calcified proximal LAD with [...] below (2nd lesion (more content not included)... [facility] Work Phone: Comp Panel with Mg Reflexon 04-09-2021 Calcium [Mass/Vol] 10.1 mg/dL Normal 8.4-10.4 [facility] Comment on above: Performed By: #### T SH5, MBF33, CKMBS, LIPD2 #### [facility] [address] [place], [place] ALP [Catalytic activity/Vol] 45 U/L Normal 38-126 [facility] Comment on above: Performed By: #### T SH5, MBF33, CKMBS, LIPD2 #### [facility] [address] [place] [address] ALT [Catalytic activity/Vol] 31 U/L Normal 0-34 [facility] Comment on above: Result Comment: The ALT test is performed by an updated assay method. Please note that the reference intervals have been changed and are now sex specific. Performed By: #### T SH5, MBF33, CKMBS, LIPD2 #### [facility] [address] [place] [address] Anion gap [Moles/Vol] 11 mmol/L Normal 3-13 [facility] Comment on above: Performed By: #### T SH5, MBF33, CKMBS, LIPD2 #### [address] [address] [address], [place] AST [Catalytic activity/Vol] 37 U/L Normal 15-46 [facility] Comment on above: Performed By: #### T SH5, MBF33, CKMBS, LIPD2 #### [address] [address] [address] [place], [place] Bilirubin [Mass/Vol] 1.5 mg/dL High 0.2-1.3 [facility] Comment on above: Performed By: #### T SH5, MBF33, CKMBS, LIPD2 #### [address] [address] [address] [place], [place] CO2 [Moles/Vol] 23 mmol/L Normal 22-30 [facility] Comment on above: Performed By: #### T SH5, MBF33, CKMBS, LIPD2 #### [address] [address] [address] [place], [place] Creatinine [Mass/Vol] 0.85 mg/dL Normal 0.52-1.25 [facility] Comment on above: Performed By: #### T SH5, MBF33, CKMBS, LIPD2 #### [address] [address] [address], [place] GFR/1.73 sq M.predicted among blacks MDRD (S/P/Bld) [Vol rate/Area] 79.7 mL/min/{1.73_m2} Normal >60 [facility] Comment on above: Performed By: #### T SH5, MBF33, CKMBS, LIPD2 #### [address] [address] [address], [place] GFR/1.73 sq M.predicted among non-blacks MDRD (S/P/Bld) [Vol rate/Area] 68.7 mL/min/{1.73_m2} Normal >60 [facility] Comment on above: Result Comment: KDIG [...] #### T TRACE, HARISHF33, CKMBS, LIPD2 #### [facility] [address] [place] [address] Glucose [Mass/Vol] 152 mg/dL High 70-100 [facility] Comment on above: Performed By: #### T TRACE, MBF33, CKMBS, LIPD2 #### [address] [address] [place] [address] Protein [Mass/Vol] 7.6 g/dL Normal 6.3-8.2 [facility] Comment on above: Performed By: #### T TRACE, MBF33, CKMBS, LIPD2 #### [address] [address] Urea nitrogen [Mass/Vol] 22 mg/dL High 7-20 [facility] Comment on above: Performed By: #### T TRACE, MBF33, CKMBS, LIPD2 #### [address] [address] [place] [address] Potassium [Moles/Vol] 4.3 mmol/L Normal 3.5-5.1 [facility] Comment on above: Performed By: #### T SH5, MBF33, CKMBS, LIPD2 #### [address] [address] [place] [address] Albumin [Mass/Vol] 4.3 g/dL Normal 3.5-5.0 [facility] Comment on above: Performed By: #### T SH5, MBF33, CKMBS, LIPD2 #### [facility] [employer] [facility] [address], [place] Chloride [Moles/Vol] 104 mmol/L Normal 98-107 [facility] Comment on above: Performed By: #### T SH5, MBF33, CKMBS, LIPD2 #### [facility] [address], [place] Sodium [Moles/Vol] 138 mmol/L Normal 135-145 [facility] Comment on above: Performed By: #### T SH5, MBF33, CKMBS, LIPD2 #### [facility] [address], [place] Comprehensive Metabolic Pane l w/ Reflex to MGOrdered By: Emily Greenwood on 04-09-2021 Albumin [Mass/Vol] 4.3 g/dL 3.5 - 5.0 g/dL [facility] Work Phone: [phone] ALP (Bld) [Catalytic activity/Vol] 45 U/L 38 - 126 U/L [facility] Work Phone: [phone] ALT [Catalytic activity/Vol] 31 U/L 0 - 34 U/L [facility] Work Phone: [phone] Comment on above: The ALT test is perf ormed by an updated assay method. Please note that the reference intervals have been changed and are now sex specific. Anion gap [Moles/Vol] 11 mmol/L 3 - 13 mmol/L [facility] Work Phone: [phone] AST [Catalytic activity/Vol] 37 U/L 15 - 46 U/L [facility] Work Phone: [phone] Bilirubin [Mass/Vol] 1.5 mg/dL High 0.2 - 1 .3 mg/dL [facility] Work Phone: [phone] Calcium [Mass/Vol] 10.1 mg/dL 8.4 - 10. 4 mg/dL [facility] Work Phone: Chloride [Moles/Vol] 104 mmol/L 98 - 10 7 mmol/L [facility] Work Phone: [phone] CO2 [Moles/Vol] 23 mmol/L 22 - 30 mmol/L [facility] Work Phone: Creatinine [Mass/Vol] 0.85 mg/dL 0.52 - 1.25 mg/dL [facility] Work Phone: EGFR IF NonAfrican Mexican 68.7 mL/min >60 [facility] Work Phone: [phone] Comment on above: KDIGO guidelines pro vide [...] fraction] 7.6 g/dL 6.3 - 8.2 g/dL [facility] Work Phone: GFR/1.73 sq M.predicted among blacks MDRD (S/P/Bld) [Vol rate/Area] 79.7 mL/min/{1.73_m2} >60 [facility] Work Phone: Glucose [Mass/Vol] 152 mg/dL High 70 - 100 mg/dL [facility] Work Phone: [phone] Potassium [Moles/Vol] 4.3 mmol/L 3.5 - 5.1 mmol/L [facility] Work Phone: [phone] Sodium [Moles/Vol] 138 mmol/L 135 - 145 mmol/L [facility] Work Phone: [phone] Urea nitrogen (BldV) [Mass/Vol] 22 mg/dL High 7 - 20 mg/dL [facility] Work Phone: Glucose,Bedsideon 05-12-2021 Glucose [Mass/Vol] 143 mg/dL High 70-100 [facility] Comment on above: Result Comment: Test performed by glucose meter. Results may be 10%-15% lower than serum/plasma values. (CLIA ID [id number]) Performed By: #### T SH5, MBF33, CKMBS, LIPD2 #### [address] [address], [place] Glucose [Mass/Vol] 175 mg/dL High 70-100 [facility] Comment on above: Result Comment: Test performed by glucose meter. Results may be 10%-15% lower than serum/plasma values. (CLIA ID [id number]) Performed By: #### T SH5, MBF33, CKMBS, LIPD2 #### [address] [address] [address], [place] Hemogram w/ Autodiffon 04-09 Abs Baso Cnt 0.1 10*3/uL Normal 0.0-0.2 [facility] Comment on above: Performed By: #### T SH5, MBF33, CKMBS, LIPD2 #### [address] [address] [address] [place], [place] Abs Neutrophile Cnt 5.5 10*3/uL Normal 1.8-7.0 [facility] Comment on above: Performed By: #### T SH5, MBF33, CKMBS, LIPD2 #### [address] [address] [address], [place] Basophils/100 WBC (Bld) 0.9 % Normal 0.0-2.0 [facility] Comment on above: Performed By: #### T SH5, MBF33, CKMBS, LIPD2 #### [address] [address] [address], [place] Eosinophils (Bld) [#/Vol] 0.4 10*3/uL Normal 0.0-0.5 [facility] Comment on above: Performed By: #### T SH5, MBF33, CKMBS, LIPD2 #### [address] [address], [place] Eosinophils/100 WBC (Bld) 4.1 % Normal 1.0-6.0 [facility] Comment on above: Performed By: #### T SH5, MBF33, CKMBS, LIPD2 #### [address] [address] [address], [place] Erythrocyte distribution width (RBC) [Ratio] 15.3 % High 11.5-14.5 [facility] Comment on above: Performed By: #### T SH5, MBF33, CKMBS, LIPD2 #### [address] [address] [address], [place] Granulocytes/100 WBC (Bld) 63.0 % Normal 40.0-80.0 [facility] Comment on above: Performed By: #### T SH5, MBF33, CKMBS, LIPD2 #### [address] [address] [place], [place] Hematocrit (Bld) [Volume fraction] 38.8 % Normal 35.0-47.0 [facility] Comment on above: Performed By: #### T SH5, MBF33, CKMBS, LIPD2 #### [address] [address] [place], [place] Hemoglobin (Bld) [Mass/Vol] 12.8 g/dL Normal 11.7-16.0 [facility] Comment on above: Performed By: #### T SH5, MBF33, CKMBS, LIPD2 #### [address], [place] Lymphocytes (Bld) [#/Vol] 2.2 10*3/uL Normal 1.0-4.3 [facility] Comment on above: Performed By: #### T SH5, MBF33, CKMBS, LIPD2 #### [address] [address] Lymphocytes/100 WBC (Bld) 24.9 % Normal 20.0-40.0 [facility] Comment on above: Performed By: #### T SH5, MBF33, CKMBS, LIPD2 #### [address] [address] [address], [place] MCH (RBC) [Entitic mass] 28.0 pg Normal 26.0-34.0 [facility] Comment on above: Performed By: #### T SH5, MBF33, CKMBS, LIPD2 #### [address] MCHC 33.0 % Normal 32.0-36.0 [facility] Comment on above: Performed By: #### T SH5, MBF33, CKMBS, LIPD2 #### [address], [place] MCV (RBC) [Entitic vol] 84.8 fL Normal 79.0-98.0 [facility] Comment on above: Performed By: #### T SH5, MBF33, CKMBS, LIPD2 #### [address] Monocytes (Bld) [#/Vol] 0.6 10*3/uL Normal 0.0-0.8 [facility] Comment on above: Performed By: #### T SH5, MBF33, CKMBS, LIPD2 #### [address] [address] [address], [place] Monocytes/100 WBC (Bld) 7.1 % Normal 2.0-10.0 [facility] Comment on above: Performed By: #### T SH5, MBF33, CKMBS, LIPD2 #### [address], [place] Platelet mean volume (Bld) [Entitic vol] 11.0 fL High 7.4-10.4 [facility] Comment on above: Performed By: #### T SH5, MBF33, CKMBS, LIPD2 #### [address], [place] Platelets (Bld) [#/Vol] 184 10*3/uL Normal 140-440 [facility] Comment on above: Performed By: #### T SH5, MBF33, CKMBS, LIPD2 #### [address], [place] RBC (Bld) [#/Vol] 4.57 10*6/uL Normal 3.80-5.20 [facility] Comment on above: Performed By: #### T SH5, MBF33, CKMBS, LIPD2 #### [address] [address] [place], [place] WBC (Bld) [#/Vol] 8.8 10*3/uL Normal 3.6-10.7 [facility] Comment on above: Performed By: #### T SH5, MBF33, CKMBS, LIPD2 #### [address] Magnesiumon 04-09-2021 Magnesium [Mass/Vol] 1.8 mg/dL Normal 1.6-2.3 [facility] Comment on above: Performed By: #### T SH5, MBF33, CKMBS, LIPD2 #### [address] [address] [place], [place] MagnesiumOrdered By: Silvano Spring on 04-09-2021 Magnesium [Mass/Vol] 1.8 mg/dL 1.6 - 2 .3 mg/dL [facility] Work Phone: No Panel InformationOrdered By: Emmie Spring on 04-09-2021 Interpretation and review of laboratory results Abnormal [facility] Work Phone: Test Performed by [facility] [facility] [id number] [place], [place] [address] Work Phone: POCT GlucoseOrdered By: Kristopher Stubbs on 04-09-2021 Glucose [Mass/Vol] 143 mg/dL High 70 - 100 mg/dL [facility] Work Phone: Comment on above: Test performed by ucose meter. Results may be 10%-15% lower than serum/plasma values. (CLIA ID [id number]) Interpretation and review of laboratory results Abnormal [facility] Work Phone: Test Performed by [facility] [id number] [place] [address] Work Phone: Phosphoruson 04-09-2021 Phosphate [Mass/Vol] 4.9 mg/dL High 2.5-4.5 [facility] Comment on above: Performed By: #### T SH5, MBF33, CKMBS, LIPD2 #### [facility] [address] [place] [address] PhosphorusOrdered By: Brennen Spring on 04-09-2021 Phosphate [Mass/Vol] 4.9 mg/dL High 2.5 - 4 .5 mg/dL [facility] Work Phone: Basic Metabolic Panelon 03-29 Anion gap [Moles/Vol] 10 mmol/L Normal 3-13 [facility] Comment on above: Performed By: #### B GLU #### [address] [place] [address] Calcium [Mass/Vol] 10.2 mg/dL Normal 8.4-10.4 [facility] Comment on above: Performed By: #### B GLU #### [address] [place] [address] CO2 [Moles/Vol] 25 mmol/L Normal 22-30 [facility] Comment on above: Performed By: #### B GLU #### [facility] [address] [place] [address] Creatinine [Mass/Vol] 0.85 mg/dL Normal 0.52-1.25 [facility] Comment on above: Performed By: #### B GLU #### [facility] [address] [place] [address] GFR/1.73 sq M.predicted among blacks MDRD (S/P/Bld) [Vol rate/Area] 79.7 mL/min/{1.73_m2} Normal >60 [facility] Comment on above: Performed By: #### B GLU #### [facility] [address] [place] [address] GFR/1.73 sq M.predicted among non-blacks MDRD (S/P/Bld) [Vol rate/Area] 68.7 mL/min/{1.73_m2} Normal >60 [facility] Comment on above: Result Comment: KDIG [...] secretion. Performed By: #### B GLU #### [address] [place], [place] Glucose [Mass/Vol] 133 mg/dL High 70-100 [facility] Comment on above: Performed By: #### B GLU #### [address] [address] [place], [place] Urea nitrogen [Mass/Vol] 21 mg/dL High 7-20 [facility] Comment on above: Performed By: #### B GLU #### [address] [place], [place] Chloride [Moles/Vol] 104 mmol/L Normal 98-107 [facility] Comment on above: Performed By: #### B GLU #### [address] [place], [place] Potassium [Moles/Vol] 4.5 mmol/L Normal 3.5-5.1 [facility] Comment on above: Performed By: #### B GLU #### [address] [place], [place] Sodium [Moles/Vol] 139 mmol/L Normal 135-145 [facility] Comment on above: Performed By: #### B GLU #### [address] [place] [address] Basic Metabolic PanelOrdered By: Emmie Spring on [...] mg/dL [facility] Work Phone: EGFR IF NonAfrican Mexican 68.7 mL/min >60 [facility] Work Phone: Comment [...] 7 - 20 mg/dL [facility] Work Phone: [phone] CBC Auto DifferentialOrdered By: Emmie Spring on 04-08-2021 Absolute Baso # 0.1 10*3/uL 0.0 - 0.2 10*3/uL [facility] Work Phone: Absolute Neut # 4.5 10*3/uL 1.8 - 7.0 10*3/uL [facility] Work Phone: Basophils/100 WBC (Bld) 1.3 % 0.0 - 2.0 % [facility] Work Phone: Eosinophils (Bld) [#/Vol] 0.4 10*3/uL 0. 0 - 0.5 10*3/uL [facility] Work Phone: Eosinophils/100 WBC (Bld) 5.2 % 1.0 - 6.0 % [facility] Work Phone: Granulocytes/100 WBC (Bld) 55.7 % 40.0 - 80.0 % [facility] Work Phone: Hematocrit (Bld) [Volume fraction] 36.1 % 35.0 - 47.0 % [facility] Work Phone: Hemoglobin.gastrointestin al spec 1 Ql [...] [Mass/Vol] 33.0 % 32.0 - 36.0 % [employer] Work Phone: MCV (RBC) [Entitic vol] 85.6 fL 79.0 - 98.0 fL [employer] Work Phone: Monocytes (Bld) [#/Vol] 0.6 10*3/uL 0.0 - 0.8 10*3/uL [employer] Work Phone: Monocytes/100 WBC (Bld) 8.1 % 2.0 - 10.0 % [employer] Work Phone: Platelet distribution width (Bld) [Ratio] 15.6 % High 11.5 - 14.5 % [employer] Phone: Platelet mean volume (Bld) [Entitic vol] 10.8 fL High 7.4 - 10.4 fL [employer] Phone: Platelets (Bld) [#/Vol] 173 10*3/uL 140 - 440 10*3/uL [employer] Work Phone: RBC (Bld) [#/Vol] 4.22 10*6/uL 3.80 - 5.2 0 10*6/uL [employer] Work Phone: WBC (Bld) [#/Vol] 8.0 10*3/uL 3.6 - 10.7 10*3/uL [employer] Work Phone: Test Performed by [employer], [address] [place] [address] [employer] Work Phone: [phone] EKG 12 LeadOrdered By: Concha Spring on 04-08-2021 [employer] Test Date: 2021-04-08 Pat Name: INDIRA HATCH Department: 1A1C Room: 130 Gender: F 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1950 Requested By: MARCUS NUÑEZ Order Number: [id number] Alex MD: Behzad Burks Measurements Intervals Sidney Rate: 78 P: 22 MN: 186 QRS: -18 QRSD: 99 T: 117 QT: 388 QTc: 442 Interpretive Statements Sinus rhythm Borderline left axis deviation Low voltage, precordial leads Anteroseptal infarct, old Nonspecific T abnormalities, lateral leads Electronically Signed On 04-08-2021 13:54:38 EDT by Behzad BLEDSOE Work Phone: Nikita, [facility] Incoming Cardiology Results From [facility] - 04/08/2021 1:55 PM EDT [facility] [employer] [facility] Test Date: 2021-04-08 Pat Name: INDIRA HATCH Department: [facility] Room: [facility] Gender: F 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 Results may be 10%-15% lower than serum/plasma values. (CLIA ID [id number]) Performed By: #### T SH5, MBF33, CKMBS, LIPD2 #### [facility] [facility] [place] [address] Glucose [Mass/Vol] 138 mg/dL High 70-100 [facility] Comment on above: Result Comment: Test performed by glucose meter. Results may be 10%-15% lower than serum/plasma values. (CLIA ID [id number]) Performed By: #### B GLU #### [employer] [facility] [place] [address] Hemogram w/ Autodiffon 04-08 Abs Baso Cnt 0.1 10*3/uL Normal 0.0-0.2 [facility] Comment on above: Performed By: #### B GLU #### [address] [place], [place] Abs Neutrophile Cnt 4.5 10*3/uL Normal 1.8-7.0 [facility] Comment on above: Performed By: #### B GLU #### [address] [place], [place] Basophils/100 WBC (Bld) 1.3 % Normal 0.0-2.0 [facility] Comment on above: Performed By: #### B GLU #### [address] [place], [place] Eosinophils (Bld) [#/Vol] 0.4 10*3/uL Normal 0.0-0.5 [facility] Comment on above: Performed By: #### B GLU #### [address] [place], [place] Eosinophils/100 WBC (Bld) 5.2 % Normal 1.0-6.0 [facility] Comment on above: Performed By: #### B GLU #### [address] [place], [place] Erythrocyte distribution width (RBC) [Ratio] 15.6 % High 11.5-14.5 [facility] Comment on above: Performed By: #### B GLU #### [address] [place], [place] Granulocytes/100 WBC (Bld) 55.7 % Normal 40.0-80.0 [facility] Comment on above: Performed By: #### B GLU #### [address] [place], [place] Hematocrit (Bld) [Volume fraction] 36.1 % Normal 35.0-47.0 [facility] Comment on above: Performed By: #### B GLU #### [address] [place], [place] Hemoglobin (Bld) [Mass/Vol] 11.9 g/dL Normal 11.7-16.0 [facility] Comment on above: Performed By: #### B GLU #### [facility] [address] [place], [place] Lymphocytes (Bld) [#/Vol] 2.4 10*3/uL Normal 1.0-4.3 [facility] Comment on above: Performed By: #### B GLU #### [facility] [address] [place], [place] Lymphocytes/100 WBC (Bld) 29.7 % Normal 20.0-40.0 [facility] Comment on above: Performed By: #### B GLU #### [address] [place], [place] MCH (RBC) [Entitic mass] 28.2 pg Normal 26.0-34.0 [facility] Comment on above: Performed By: #### B GLU #### [address] [place] MCHC 33.0 % Normal 32.0-36.0 [facility] Comment on above: Performed By: #### B GLU #### [address] [place], [place] MCV (RBC) [Entitic vol] 85.6 fL Normal 79.0-98.0 [facility] Comment on above: Performed By: #### B GLU #### [address] [place], [place] Monocytes (Bld) [#/Vol] 0.6 10*3/uL Normal 0.0-0.8 [facility] Comment on above: Performed By: #### B GLU #### [address] [place], [place] Monocytes/100 WBC (Bld) 8.1 % Normal 2.0-10.0 [facility] Comment on above: Performed By: #### B GLU #### [address] [place], [place] Platelet mean volume (Bld) [Entitic vol] 10.8 fL High 7.4-10.4 [facility] Comment on above: Performed By: #### B GLU #### [facility] [address] [place], [place] Platelets (Bld) [#/Vol] 173 10*3/uL Normal 140-440 [facility] Comment on above: Performed By: #### B GLU #### [facility] [address] [place], [place] RBC (Bld) [#/Vol] 4.22 10*6/uL Normal 3.80-5.20 [facility] Comment on above: Performed By: #### B GLU #### [address] [place], [place] WBC (Bld) [#/Vol] 8.0 10*3/uL Normal 3.6-10.7 [facility] Comment on above: Performed By: #### B GLU #### [address] [place], [place] Magnesiumon 04-08-2021 Magnesium [Mass/Vol] 1.8 mg/dL Normal 1.6-2.3 [facility] Comment on above: Performed By: #### B GLU #### [address] [place], [place] MagnesiumOrdered By: Silvano Spring on 04-08-2021 Magnesium [Mass/Vol] 1.8 mg/dL 1.6 - 2 .3 mg/dL [facility] Work Phone: No Panel InformationOrdered By: Emmie Spring on 04-08-2021 Interpretation and review of laboratory results Abnormal [facility] Work Phone: Test Performed by [facility] S[address], [facility] [place] [address] [facility] Work Phone: POCT GlucoseOrdered By: Kristopher Stubbs on 04-08-2021 Glucose [Mass/Vol] 175 mg/dL High 70 - 100 mg/dL [facility] Work Phone: Comment on above: Test performed by gl ucose meter. Results may be 10%-15% lower than serum/plasma values. (CLIA ID [id number]) Interpretation and review of laboratory results Abnormal [facility] Work Phone: Test Performed by [employer], [address] [place] [id number] [place], [place] [address] Work Phone: [phone] Glucose [Mass/Vol] 84 mg/dL 70 - 100 mg/dL [facility] Work Phone: [phone] Comment on above: Test performed by gl ucose meter. Results may be 10%-15% lower than serum/plasma values. (CLIA ID [id number]) Test Performed by [employer], [address] [place] [address] [facility] Work Phone: [phone] Glucose [Mass/Vol] 138 mg/dL High 70 - 100 mg/dL [facility] Work Phone: [phone] Comment on above: Test performed by gl ucose meter. Results may be 10%-15% lower than serum/plasma values. (CLIA ID [id number]) Interpretation and review of laboratory results Abnormal [facility] Work Phone: [phone] Test Performed by [employer], [address] [place] [id number] [place], [place] [address] Work Phone: Phosphoruson 04-08-2021 Phosphate [Mass/Vol] 5.4 mg/dL High 2.5-4.5 [facility] Comment on above: Performed By: #### B GLU #### [facility] [employer] [address] PhosphorusOrdered By: Brennen Spring on 04-08-2021 Phosphate [Mass/Vol] 5.4 mg/dL High 2.5 - 4 .5 mg/dL [facility] Work Phone: [phone] APTTon 04-07-2021 aPTT Coag (Bld) [Time] 46.7 s High 20.0-30.5 [facility] Comment on above: Result Comment: NOTE : The therapeutic time for Heparin anticoagulation, based on Xa activity inhibition, is an APTT of 46-80 seconds. Performed By: #### B GLU #### [facility] [employer] [address] APTTOrdered By: Emmie shah on 04-07-2021 aPTT Coag (Bld) [Time] 46.7 s High 20.0 - 30.5 s [facility] Work Phone: Comment on above: NOTE: The therapeuti c time for Heparin anticoagulation, based on Xa activity inhibition, is an APTT of 46-80 seconds. Interpretation and review of laboratory results Abnormal [facility] Work Phone: Test Performed by [address] [address] [facility] Work Phone: Basic Metabolic Panelon 03-29 Anion gap [Moles/Vol] 6 mmol/L Normal 3-13 [facility] Comment on above: Performed By: #### A CTBO #### [address] [address] [place], [place] Calcium [Mass/Vol] 9.5 mg/dL Normal 8.4-10.4 [facility] Comment on above: Performed By: #### A CTBO #### [address] [place], [place] CO2 [Moles/Vol] 25 mmol/L Normal 22-30 [facility] Comment on above: Performed By: #### A CTBO #### [address] [address] [place] [address] Glucose [Mass/Vol] 136 mg/dL High 70-100 [facility] Comment on above: Performed By: #### A CTBO #### [address] [place] [address] Urea nitrogen [Mass/Vol] 17 mg/dL Normal 7-20 [facility] Comment on above: Performed By: #### A CTBO #### [address] Creatinine [Mass/Vol] 0.66 mg/dL Normal 0.52-1.25 [facility] Comment on above: Performed By: #### A CTBO #### [address] [place] [address] GFR/1.73 sq M.predicted among blacks MDRD (S/P/Bld) [Vol rate/Area] mL/min/{1.73_m2} Normal >60 [facility] Comment on above: Performed By: #### A CTBO #### [address] [address] GFR/1.73 sq M.predicted among non-blacks MDRD (S/P/Bld) [Vol rate/Area] 88.6 mL/min/{1.73_m2} Normal >60 [facility] Comment on above: Result Comment: KDIG [...] secretion. Performed By: #### A CTBO #### [address] [place] [address] Chloride [Moles/Vol] 107 mmol/L Normal 98-107 [facility] Comment on above: Performed By: #### A CTBO #### [address] [place] [address] Potassium [Moles/Vol] 4.0 mmol/L Normal 3.5-5.1 [facility] Comment on above: Performed By: #### A CTBO #### [address] [place] [address] Sodium [Moles/Vol] 137 mmol/L Normal 135-145 [facility] Comment on above: Performed By: #### A CTBO #### [facility] [address] [place] [address] Basic Metabolic PanelOrdered By: Emmie Spring on 04-07-2021 Anion gap [Moles/Vol] 6 mmol/L 3 - 13 mmol/L [facility] Work Phone: Calcium [Mass/Vol] 9.5 mg/dL 8.4 - 10. 4 mg/dL [facility] Work Phone: [phone] Chloride [Moles/Vol] 107 mmol/L 98 - 10 7 mmol/L [facility] Work Phone: [phone] CO2 [Moles/Vol] 25 mmol/L 22 - 30 mmol/L [facility] Work Phone: [phone] Creatinine [Mass/Vol] 0.66 mg/dL 0.52 - 1.25 mg/dL [facility] Work Phone: [phone] EGFR IF NonAfrican Mexican 88.6 mL/min >60 [facility] Work Phone: Comment [...] 27.8 pg 26. 0 - 34.0 pg [facility] Work Phone: MCHC (RBC) [Mass/Vol] 33.3 % 32.0 - 36.0 % [facility] Work Phone: MCV (RBC) [Entitic vol] 83.4 fL 79.0 - 98.0 fL [facility] Work Phone: Monocytes (Bld) [#/Vol] 0.5 10*3/uL 0.0 - 0.8 10*3/uL [facility] Work Phone: Monocytes/100 WBC (Bld) 7.3 % 2.0 - 10.0 % [employer] Work Phone: Platelet distribution width (Bld) [Ratio] 15.2 % High 11.5 - 14.5 % [employer] Work Phone: Platelet mean volume (Bld) [Entitic vol] 11.0 fL High 7.4 - 10.4 fL [employer] Work Phone: Platelets (Bld) [#/Vol] 162 10*3/uL 140 - 440 10*3/uL [employer] Work Phone: RBC (Bld) [#/Vol] 3.99 10*6/uL 3.80 - 5.2 0 10*6/uL [employer] Work Phone: WBC (Bld) [#/Vol] 6.9 10*3/uL 3.6 - 10.7 10*3/uL [employer] Work Phone: Test Performed by [employer], [address] [place] [address] [facility] Work Phone: EKG 12 LeadOrdered By: Concha Sprign on 04-07-2021 [employer] Test Date: 2021-04-07 Pat Name: INDIRA HATCH Department: [facility] Room: 130 Gender: F 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: TYRELL : 1950 Requested By: MARCUS NUÑEZ Order Number: [id number] Reading MD: Shabbir Lazcano Measurements Intervals Sidney Rate: 79 P: 24 MN: 178 QRS: -18 QRSD: 100 T: 127 QT: 399 QTc: 458 Interpretive Statements Sinus rhythm Borderline left axis deviation Low voltage, precordial leads Anteroseptal infarct, old Nonspecific T abnormalities, lateral leads Electronically Signed On 04-07-2021 14:28:03 EDT by Shabbir BLEDSOE Work Phone: Nikita, [facility] Incoming Cardiology Results From [facility] - 04/07/2021 2:29 PM EDT [employer] Test Date: 2021-04-07 Pat Name: INDIRA HATCH Department: [facility] Room: [facility] Gender: F 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: TYRELL : 1950 Requested By: MARCUS NUÑEZ Order Number: [id number] Reading MD: Shabbir Lazcano Measurements Intervals Sidney Rate: 79 P: 24 MN: 178 QRS: -18 QRSD: 100 T: 127 QT: 399 QTc: 458 Interpretive Statements Sinus rhythm Borderline left axis deviation Low voltage, precordial leads Anteroseptal infarct, old Nonspecific T abnormalities, lateral leads Electronically Signed On 04-07-2021 14:28:03 EDT by Shabbir BLEDSOE Work Phone: Glucose,Bedsideon 04-07-2021 Glucose [Mass/Vol] 205 mg/dL High 70-100 [facility] [employer] [facility] Comment on above: Result Comment: Test performed by glucose meter. Results may be 10%-15% lower than serum/plasma values. (CLIA ID [id number]) Performed By: #### B GLU #### [employer] [address] [place] [phone] Glucose [Mass/Vol] 125 mg/dL High 70-100 [facility] [employer] [facility] Comment on above: Result Comment: Test performed by glucose meter. Results may be 10%-15% lower than serum/plasma values. (CLIA ID [id number]) Performed By: #### B GLU #### [employer] [address] [place] [phone] Glucose [Mass/Vol] 178 mg/dL High 70-100 [facility] Comment on above: Result Comment: Test performed by glucose meter. Results may be 10%-15% lower than serum/plasma values. (CLIA ID [id number]) Performed By: #### B GLU #### [facility] [address] [place], [place] Glucose [Mass/Vol] 243 mg/dL High 70-100 [facility] Comment on above: Result Comment: Test performed by glucose meter. Results may be 10%-15% lower than serum/plasma values. (CLIA ID [id number]) Performed By: #### B GLU #### [address] [place], [place] Hemogram w/ Autodiffon 04-07 Abs Baso Cnt 0.1 10*3/uL Normal 0.0-0.2 [facility] Comment on above: Performed By: #### B GLU #### [address] [place], [place] Abs Neutrophile Cnt 3.3 10*3/uL Normal 1.8-7.0 [facility] Comment on above: Performed By: #### B GLU #### [address] [place], [place] Basophils/100 WBC (Bld) 1.1 % Normal 0.0-2.0 [facility] Comment on above: Performed By: #### B GLU #### [address] [place], [place] Eosinophils (Bld) [#/Vol] 0.5 10*3/uL Normal 0.0-0.5 [facility] Comment on above: Performed By: #### B GLU #### [address] [place], [place] Eosinophils/100 WBC (Bld) 7.0 % High 1.0-6.0 [facility] Comment on above: Performed By: #### B GLU #### [address] [place], [place] Erythrocyte distribution width (RBC) [Ratio] 15.2 % High 11.5-14.5 [facility] Comment on above: Performed By: #### B GLU #### [address] [place], [place] Granulocytes/100 WBC (Bld) 48.1 % Normal 40.0-80.0 [facility] Comment on above: Performed By: #### B GLU #### [address] [place], [place] Hematocrit (Bld) [Volume fraction] 33.3 % Low 35.0-47.0 [facility] Comment on above: Performed By: #### B GLU #### [address] [place], [place] Hemoglobin (Bld) [Mass/Vol] 11.1 g/dL Low 11.7-16.0 [facility] Comment on above: Performed By: #### B GLU #### [address] [place], [place] Lymphocytes (Bld) [#/Vol] 2.5 10*3/uL Normal 1.0-4.3 [facility] Comment on above: Performed By: #### B GLU #### [address] [place], [place] Lymphocytes/100 WBC (Bld) 36.5 % Normal 20.0-40.0 [facility] Comment on above: Performed By: #### B GLU #### [address] [place] MCH (RBC) [Entitic mass] 27.8 pg Normal 26.0-34.0 [facility] Comment on above: Performed By: #### B GLU #### [address] [place] MCHC 33.3 % Normal 32.0-36.0 [facility] Comment on above: Performed By: #### B GLU #### [address] [place], [place] MCV (RBC) [Entitic vol] 83.4 fL Normal 79.0-98.0 [facility] Comment on above: Performed By: #### B GLU #### [facility] [address] [place] [address] Monocytes (Bld) [#/Vol] 0.5 10*3/uL Normal 0.0-0.8 [facility] Comment on above: Performed By: #### B GLU #### [facility] [address] [place] [address] Monocytes/100 WBC (Bld) 7.3 % Normal 2.0-10.0 [facility] Comment on above: Performed By: #### B GLU #### [facility] [address] [place] [address] Platelet mean volume (Bld) [Entitic vol] 11.0 fL High 7.4-10.4 [facility] Comment on above: Performed By: #### B GLU #### [facility] [address] [place] [address] Platelets (Bld) [#/Vol] 162 10*3/uL Normal 140-440 [facility] Comment on above: Performed By: #### B GLU #### [facility] [address] [place] [address] RBC (Bld) [#/Vol] 3.99 10*6/uL Normal 3.80-5.20 [facility] Comment on above: Performed By: #### B GLU #### [facility] [address] [place] [address] WBC (Bld) [#/Vol] 6.9 10*3/uL Normal 3.6-10.7 [facility] Comment on above: Performed By: #### B GLU #### [facility] [address] [place] [address] MRI Cardiac Morphology w/ Co ntraston 04-07-2021 MRI Cardiac Morphology w/ Contrast Patient Name: INDIRA HATCH [facility] ACCESSION EXAM DATE/TIME PROCEDURE ORDERING PROVIDER [id number] 04/07/2021 15:48 EDT MRI Cardiac Morphology 185179 -EMMIE SPRING w/ Contrast CPT code 12428 Reason For Exam (MRI Cardiac Morphology w/ Contrast) NSTEMI, cabg consideration Report [facility] [employer] CMR Report Name: INDIRA HATCH : 1950 [...] ---- TRICUSPID (more content not included)... Normal [facility] MRI MYOCARDIUM W CONTRASTOrd ered By: Emmie Spring on 04-07-2021 [id number] ACCESSION EXAM DATE/TIME PROCEDURE ORDERING PROVIDER [id number] 04/07/2021 15:48 EDT MRI Cardiac Morphology [id number] EMMIE EVANS w/ Contrast CPT code 09090 Reason For Exam (MRI Cardiac Morphology w/ Contrast) NSTEMI, cabg consideration Report [facility] CMR Report Name: INDIRA HATCH : 1950 [...] ---- None VALVES (more content not included)... [employer] Work Phone: Nikita, [employer] [facility]07/[facility] 10:12 PM EDT Patient Name: INDIRA HATCH Magnetic Resonance Imaging ACCESSION EXAM DATE/TIME PROCEDURE ORDERING PROVIDER [id number] 04/07/2021 15:48 EDT MRI Cardiac Morphology [id number] -EMMIE SPRING w/ Contrast CPT code 24504 Reason For Exam (MRI Cardiac Morphology w/ Contrast) NSTEMI, cabg consideration Report [employer] CMR Report Name: INDIRA HATCH : 1950 [...] AORTIC REGURGITATION: MIL (more content not included)... [employer] Work Phone: Magnesiumon 04-07-2021 Magnesium [Mass/Vol] 1.7 mg/dL Normal 1.6-2.3 [employer] [facility] Comment on above: Performed By: #### A CTBO #### [employer] System [address] [place] [phone] MagnesiumOrdered By: Silvano Spring on 04-07-2021 Magnesium [Mass/Vol] 1.7 mg/dL 1.6 - 2 .3 mg/dL [employer] Work Phone: [phone] No Panel InformationOrdered By: Emmie Spring on 04-07-2021 Test Performed by [employer], [facility] [place] [address] [employer] Work Phone: 1 POCT GlucoseOrdered By: Kristopher Stubbs on 04-07-2021 Glucose [Mass/Vol] 205 mg/dL High 70 - 100 mg/dL [employer] Work Phone: 1 Comment on above: Test performed by gl ucose meter. Results may be 10%-15% lower than serum/plasma values. (CLIA ID [id number]) Interpretation and review of laboratory results Abnormal [employer] Work Phone: 1 Test Performed by [employer], [facility] [place] [address] [employer] Work Phone: 1 Glucose [Mass/Vol] 125 mg/dL High 70 - 100 mg/dL [employer] Work Phone: 1 Comment on above: Test performed by gl ucose meter. Results may be 10%-15% lower than serum/plasma values. (CLIA ID [id number]) Interpretation and review of laboratory results Abnormal [employer] Work Phone: 1 Test Performed by [employer], [facility] [place] [address] [facility] Work Phone: 1 Glucose [Mass/Vol] 178 mg/dL High 70 - 100 mg/dL [facility] Work Phone: 1 Comment on above: Test performed by gl ucose meter. Results may be 10%-15% lower than serum/plasma values. (CLIA ID [id number]) Interpretation and review of laboratory results Abnormal [employer] Work Phone: 1 Test Performed by [employer], [facility] [place] [address] [facility] Work Phone: 1 Glucose [Mass/Vol] 243 mg/dL High 70 - 100 mg/dL [facility] Work Phone: 1 Comment on above: Test performed by gl ucose meter. Results may be 10%-15% lower than serum/plasma values. (CLIA ID [id number]) Interpretation and review of laboratory results Abnormal [facility] Work Phone: Test Performed by [facility], [address] [place] [id number] [place] [address] Work Phone: Phosphoruson 04-07-2021 Phosphate [Mass/Vol] 4.0 mg/dL Normal 2.5-4.5 [facility] Comment on above: Performed By: #### A CTBO #### [address] PhosphorusOrdered By: Brennen Spring on 04-07-2021 Phosphate [Mass/Vol] 4.0 mg/dL 2.5 - 4 .5 mg/dL [facility] Work Phone: APTTon 04-06-2021 aPTT Coag (Bld) [Time] 70.0 s High 20.0-30.5 [facility] Comment on above: Result Comment: NOTE : The therapeutic time for Heparin anticoagulation, based on Xa activity inhibition, is an APTT of 46-80 seconds. Performed By: #### A PTT #### [address] aPTT Coag (Bld) [Time] 48.1 s High 20.0-30.5 [facility] Comment on above: Result Comment: NOTE : The therapeutic time for Heparin anticoagulation, based on Xa activity inhibition, is an APTT of 46-80 seconds. Performed By: #### T SH5, MBF33, CKMBS, LIPD2 #### [address] aPTT Coag (Bld) [Time] 50.3 s High 20.0-30.5 [facility] Comment on above: Result Comment: NOTE : The therapeutic time for Heparin anticoagulation, based on Xa activity inhibition, is an APTT of 46-80 seconds. Performed By: #### T SH5, MBF33, CKMBS, LIPD2 #### [address] APTTOrdered By: Emmie shah on 04-06-2021 aPTT Coag (Bld) [Time] 70 s High 20.0 - 30.5 s [facility] Work Phone: Comment on above: NOTE: The therapeuti c time for Heparin anticoagulation, based on Xa activity inhibition, is an APTT of 46-80 seconds. Interpretation and review of laboratory results Abnormal [facility] Work Phone: Test Performed by [facility] [employer] [address] [address] [facility] Work Phone: aPTT Coag (Bld) [Time] 50.3 s High 20.0 - 30.5 s [facility] Work Phone: Comment on above: NOTE: The therapeuti c time for Heparin anticoagulation, based on Xa activity inhibition, is an APTT of 46-80 seconds. Interpretation and review of laboratory results Abnormal [facility] Work Phone: Test Performed by [address] [address] [facility] Work Phone: Basic Metabolic Panelon Calcium [Mass/Vol] 9.4 mg/dL Normal 8.4-10.4 [facility] Comment on above: Performed By: #### A CTBO #### [address] [address] Glucose [Mass/Vol] 159 mg/dL High 70-100 [facility] Comment on above: Performed By: #### A CTBO #### [address] [address] [place] [address] Anion gap [Moles/Vol] 6 mmol/L Normal 3-13 [facility] Comment on above: Performed By: #### A CTBO #### [address] [address] CO2 [Moles/Vol] 26 mmol/L Normal 22-30 [facility] Comment on above: Performed By: #### A CTBO #### [address] [place] [address] Creatinine [Mass/Vol] 0.65 mg/dL Normal 0.52-1.25 [facility] Comment on above: Performed By: #### A CTBO #### [facility] [address] [place] [address] GFR/1.73 sq M.predicted among blacks MDRD (S/P/Bld) [Vol rate/Area] mL/min/{1.73_m2} Normal >60 [facility] Comment on above: Performed By: #### A CTBO #### [facility] [address] [place] [address] GFR/1.73 sq M.predicted among non-blacks MDRD (S/P/Bld) [Vol rate/Area] 89.1 mL/min/{1.73_m2} Normal >60 [facility] Comment on above: Result Comment: KDIG [...] secretion. Performed By: #### A CTBO #### [facility] [address] [place] [address] Urea nitrogen [Mass/Vol] 17 mg/dL Normal 7-20 [facility] Comment on above: Performed By: #### A CTBO #### [address] [address] Chloride [Moles/Vol] 103 mmol/L Normal 98-107 [facility] Comment on above: Performed By: #### A CTBO #### [address] [address] [place], [place] Potassium [Moles/Vol] 4.1 mmol/L Normal 3.5-5.1 [facility] Comment on above: Performed By: #### A CTBO #### [facility] [address] [place], [place] Sodium [Moles/Vol] 135 mmol/L Normal 135-145 [facility] Comment on above: Performed By: #### A CTBO #### [address] [address] [place], [place] Basic Metabolic PanelOrdered By: Emmie Spring on 04-06-2021 Anion gap [Moles/Vol] 6 mmol/L 3 - 13 mmol/L [facility] Work Phone: Calcium [Mass/Vol] 9.4 mg/dL 8.4 - 10. 4 mg/dL [facility] Work Phone: Chloride [Moles/Vol] 103 mmol/L 98 - 10 7 mmol/L [facility] Work Phone: CO2 [Moles/Vol] 26 mmol/L 22 - 30 mmol/L [facility] Work Phone: Creatinine [Mass/Vol] 0.65 mg/dL 0.52 - 1.25 mg/dL [facility] Work Phone: EGFR IF NonAfrican Mexican 89.1 mL/min >60 [facility] Work Phone: Comment on above: KDIGO [...] Interpretation and review of laboratory results Abnormal [facility] Work Phone: Potassium [Moles/Vol] 4.1 mmol/L 3.5 - 5.1 mmol/L [facility] Work Phone: Sodium [Moles/Vol] 135 mmol/L 135 - 145 mmol/L [facility] Work Phone: Urea nitrogen (BldV) [Mass/Vol] 17 mg/dL 7 - 20 mg/dL [facility] Work Phone: CBC Auto DifferentialOrdered By: Emmie Spring on 04-06-2021 Absolute Baso # 0.1 10*3/uL 0.0 - 0.2 10*3/uL [facility] Work Phone: Absolute Neut # 3.1 10*3/uL 1.8 - 7.0 10*3/uL [facility] Work Phone: Basophils/100 WBC (Bld) 0.8 % 0.0 - 2.0 % [facility] Work Phone: Eosinophils (Bld) [#/Vol] 0.4 10*3/uL 0. 0 - 0.5 10*3/uL [facility] Work Phone: [phone] Eosinophils/100 WBC (Bld) 6.9 % High 1.0 - 6.0 % [facility] Work Phone: Granulocytes/100 WBC (Bld) 48.1 % 40.0 - 80.0 % [facility] Work Phone: [phone] Hematocrit (Bld) [Volume fraction] 34.7 % Low 35.0 - 47.0 % [facility] Work Phone: Hemoglobin.gastrointestin al spec 1 Ql (Stl) 11.7 g/dL 11.7 - 16.0 g/dL [employer] Work Phone: 1 Interpretation and review of laboratory results Abnormal [employer] Work Phone: 1 Lymphocytes (Bld) [#/Vol] 2.4 10*3/uL 1. 0 - 4.3 10*3/uL [facility] Work Phone: Lymphocytes/100 WBC (Bld) 37.2 % 20 .0 - 40.0 % [facility] Work Phone: 1 MCH (RBC) [Entitic mass] 28.1 pg 26. 0 - 34.0 pg [facility] Work Phone: 1 MCHC (RBC) [Mass/Vol] 33.6 % 32.0 - 36.0 % [employer] Work Phone: MCV (RBC) [Entitic vol] 83.6 fL 79.0 - 98.0 fL [employer] Work Phone: Monocytes (Bld) [#/Vol] 0.4 10*3/uL 0.0 - 0.8 10*3/uL [facility] Work Phone: 1 Monocytes/100 WBC (Bld) 7.0 % 2.0 - 10.0 % [employer] Work Phone: 1 Platelet distribution width (Bld) [Ratio] 15.0 % High 11.5 - 14.5 % [employer] Phone: Platelet mean volume (Bld) [Entitic vol] 10.8 fL High 7.4 - 10.4 fL [facility] Work Phone: Platelets (Bld) [#/Vol] 162 10*3/uL 140 - 440 10*3/uL [facility] Work Phone: RBC (Bld) [#/Vol] 4.15 10*6/uL 3.80 - 5.2 0 10*6/uL [facility] Work Phone: WBC (Bld) [#/Vol] 6.4 10*3/uL 3.6 - 10.7 10*3/uL [employer] Work Phone: Test Performed by [employer], [address] [place] [address] [employer] Work Phone: ECHO Complete 2D W Doppler W ColorOrdered By: Emmie Spring on 04-06-2021 TRANSTHORACIC ECHOCARDIOGRAM PATIENT: Indira Hatch STUDY DATE: 04/06/2021 : 1950 AGE: 70 HT/WT: 165.1 cm (65 89.4 kg (196.6 in) lb) GENDER: F BP: 113 / 58 LOCATION: [employer] [facility] PATIENT Inpatient main STATUS: *ORDERING PHYSICIAN: * Emmie Spring *READING PHYSICIAN: * Shabbir *CARPET OR RUG LAYER HELPER: * Arnulfo Dempsey RDCS, MD AE, RVT, [...] PW thickness, ED (more content not included)... [facility] Work Phone: Nikita, [facility] Incoming Cardiology Results From [facility] - 04/06/2021 2:52 PM EDT TRANSTHORACIC ECHOCARDIOGRAM PATIENT: Indira Hatch STUDY DATE: 04/06/2021 : 1950 AGE: 70 HT/WT: 165.1 cm (65 89.4 kg (196.6 in) lb) GENDER: F BP: 113 / 58 LOCATION: [facility] PATIENT Inpatient main STATUS: *ORDERING PHYSICIAN: * Emmie Spring *READING PHYSICIAN: * Shabbir *CARPET OR RUG LAYER HELPER: * Breanna Gaitan RDCS, MD Arnulfo AE, [...] fraction, 2-p (L (more content not included)... [employer] Work Phone: EKG 12 LeadOrdered By: Concha Spring on 04-06-2021 [employer] Test Date: 2021-04-06 Pat Name: INDIRA HATCH Department: 1A1C Room: 130 Gender: F 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: MEAGAN : 1950 Requested By: MARCUS NUÑEZ Order Number: [id number] Alex MD: Nestor Pan Measurements Intervals Sidney Rate: 86 P: 22 MN: 176 QRS: -24 QRSD: 101 T: 123 QT: 382 QTc: 457 Interpretive Statements Sinus rhythm Borderline left axis deviation Low voltage, precordial leads Anteroseptal infarct, old Nonspecific T abnormalities, lateral leads Electronically Signed On 04-06-2021 19:46:32 EDT by Nestor BLEDSOE Work Phone: Nikita, [facility] Incoming Cardiology Results From [facility] - 04/06/2021 7:47 PM EDT [facility] Test Date: 2021-04-06 Pat Name: INDIRA HATCH Department: 1A Room: [facility] Gender: F 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: MEAGAN : 1950 Requested By: MARCUS NUÑEZ Order Number: [id number] Reading MD: Nestor Pan Measurements Intervals Sidney Rate: 86 P: 22 MN: 176 QRS: -24 QRSD: 101 T: 123 QT: 382 QTc: 457 Interpretive Statements Sinus rhythm Borderline left axis deviation Low voltage, precordial leads Anteroseptal infarct, old Nonspecific T abnormalities, lateral leads Electronically Signed On 04-06-2021 19:46:32 EDT by Nestor BLEDSOE Work Phone: Echo Complete w/wo Contrasto n 04-06-2021 Echo Complete w/wo Contrast Patient Name: INDIRA HATCH Ultrasound ACCESSION EXAM DATE/TIME PROCEDURE ORDERING PROVIDER [id number] 04/06/2021 13:37 EDT Echo Complete w/wo [id number] -EMMIE SPRING Contrast Reason For Exam (Echo Complete w/wo Contrast) NSTEMI, EF 15% on cath Report TRANSTHORACIC ECHOCARDIOGRAM PATIENT: Indira Hatch STUDY DATE: 04/06/2021 : 1950 AGE: 70 HT/WT: 165.1 cm (65 89.4 kg (196.6 in) lb) GENDER: F BP: 113 / 58 LOCATION: [facility] PATIENT Inpatient main STATUS: *ORDERING PHYSICIAN: * Emmie Spring *READING PHYSICIAN: * Shabbir *CARPET OR RUG LAYER HELPER: * Breanna Gaitan RDCS, MD Arnulfo AE, [...] - 14 (more content not included)... Normal [facility] Glucose,Bedsideon 04-06-2021 Glucose [Mass/Vol] 237 mg/dL High 70-100 [facility] Comment on above: Result Comment: Test performed by glucose meter. Results may be 10%-15% lower than serum/plasma values. (CLIA ID [id number]) Performed By: #### T SH5, MBF33, CKMBS, LIPD2 #### [employer] [facility] [address] [place] [address] Glucose [Mass/Vol] 248 mg/dL High 70-100 [facility] Comment on above: Result Comment: Test performed by glucose meter. Results may be 10%-15% lower than serum/plasma values. (CLIA ID [id number]) Performed By: #### A CTBO #### [employer] [address] [place] [address] Glucose [Mass/Vol] 233 mg/dL High 70-100 [facility] Comment on above: Result Comment: Test performed by glucose meter. Results may be 10%-15% lower than serum/plasma values. (CLIA ID [id number]) Performed By: #### A CTBO #### [facility] [address] [place] [address] Hemogram w/ Autodiffon 04-06 Abs Baso Cnt 0.1 10*3/uL Normal 0.0-0.2 [facility] Comment on above: Performed By: #### A CTBO #### [facility] [address] [place] [address] Abs Neutrophile Cnt 3.1 10*3/uL Normal 1.8-7.0 [facility] Comment on above: Performed By: #### A CTBO #### [address] [address] [place] [address] Basophils/100 WBC (Bld) 0.8 % Normal 0.0-2.0 [facility] Comment on above: Performed By: #### A CTBO #### [facility] [address] [place] [address] Eosinophils (Bld) [#/Vol] 0.4 10*3/uL Normal 0.0-0.5 [facility] Comment on above: Performed By: #### A CTBO #### [facility] [address] [place] [address] Eosinophils/100 WBC (Bld) 6.9 % High 1.0-6.0 [facility] Comment on above: Performed By: #### A CTBO #### [facility] [address] [place] [address] Erythrocyte distribution width (RBC) [Ratio] 15.0 % High 11.5-14.5 [facility] Comment on above: Performed By: #### A CTBO #### [address] [address] [place] [address] Granulocytes/100 WBC (Bld) 48.1 % Normal 40.0-80.0 [facility] Comment on above: Performed By: #### A CTBO #### [facility] [address] [place] [place], [place] Hematocrit (Bld) [Volume fraction] 34.7 % Low 35.0-47.0 [facility] Comment on above: Performed By: #### A CTBO #### [facility] [address] [place], [place] Hemoglobin (Bld) [Mass/Vol] 11.7 g/dL Normal 11.7-16.0 [facility] Comment on above: Performed By: #### A CTBO #### [address] [address] [place], [place] Lymphocytes (Bld) [#/Vol] 2.4 10*3/uL Normal 1.0-4.3 [facility] Comment on above: Performed By: #### A CTBO #### [address] [address] [place], [place] Lymphocytes/100 WBC (Bld) 37.2 % Normal 20.0-40.0 [facility] Comment on above: Performed By: #### A CTBO #### [address] [address] [place], [place] MCH (RBC) [Entitic mass] 28.1 pg Normal 26.0-34.0 [facility] Comment on above: Performed By: #### A CTBO #### [address] [address] [place] MCHC 33.6 % Normal 32.0-36.0 [facility] Comment on above: Performed By: #### A CTBO #### [address] [address] [place], [place] MCV (RBC) [Entitic vol] 83.6 fL Normal 79.0-98.0 [facility] Comment on above: Performed By: #### A CTBO #### [address] [place], [place] Monocytes (Bld) [#/Vol] 0.4 10*3/uL Normal 0.0-0.8 [facility] Comment on above: Performed By: #### A CTBO #### [facility] [employer] [facility] [address] [place] [address] Monocytes/100 WBC (Bld) 7.0 % Normal 2.0-10.0 [facility] Comment on above: Performed By: #### A CTBO #### [facility] [address] [place] [address] Platelet mean volume (Bld) [Entitic vol] 10.8 fL High 7.4-10.4 [facility] Comment on above: Performed By: #### A CTBO #### [address] [address] [place] [address] Platelets (Bld) [#/Vol] 162 10*3/uL Normal 140-440 [facility] Comment on above: Performed By: #### A CTBO #### [address] [place] [address] RBC (Bld) [#/Vol] 4.15 10*6/uL Normal 3.80-5.20 [facility] Comment on above: Performed By: #### A CTBO #### [facility] [employer] [address] [address] [place] [address] WBC (Bld) [#/Vol] 6.4 10*3/uL Normal 3.6-10.7 [facility] Comment on above: Performed By: #### A CTBO #### [facility] [employer] [address] [address] [place] [address] Magnesiumon 04-06-2021 Magnesium [Mass/Vol] 1.7 mg/dL Normal 1.6-2.3 [facility] Comment on above: Performed By: #### A CTBO #### [facility] [employer] [address] [address] [place] [address] MagnesiumOrdered By: Silvano Spring on 04-06-2021 Magnesium [Mass/Vol] 1.7 mg/dL 1.6 - 2 .3 mg/dL [facility] Work Phone: No Panel InformationOrdered By: Emmie Spring on 04-06-2021 Test Performed by [facility], [facility] [place] [address] [facility] Work Phone: [phone] POCT GlucoseOrdered By: Kristopher Stubbs on 04-06-2021 Glucose [Mass/Vol] 237 mg/dL High 70 - 100 mg/dL [employer] Work Phone: [phone] Comment on above: Test performed by gl ucose meter. Results may be 10%-15% lower than serum/plasma values. (CLIA ID [id number]) Interpretation and review of laboratory results Abnormal [employer] Work Phone: [phone] Test Performed by [employer], [facility] [place] [address] [employer] Work Phone: [phone] Glucose [Mass/Vol] 248 mg/dL High 70 - 100 mg/dL [employer] Work Phone: [phone] Comment on above: Test performed by gl ucose meter. Results may be 10%-15% lower than serum/plasma values. (CLIA ID [id number]) Interpretation and review of laboratory results Abnormal [employer] Work Phone: [phone] Test Performed by [employer], [address] [place] [address] [employer] Work Phone: [phone] Glucose [Mass/Vol] 233 mg/dL High 70 - 100 mg/dL [employer] Work Phone: [phone] Comment on above: Test performed by gl ucose meter. Results may be 10%-15% lower than serum/plasma values. (CLIA ID [id number]) Interpretation and review of laboratory results Abnormal [employer] Work Phone: [phone] Test Performed by [employer], [facility] [place] [address] [employer] Work Phone: [phone] Phosphoruson 04-06-2021 Phosphate [Mass/Vol] 3.8 mg/dL Normal 2.5-4.5 [employer] Comment on above: Performed By: #### A CTBO #### [employer] [address] [place] [phone] PhosphorusOrdered By: Brennen Spring on 04-06-2021 Phosphate [Mass/Vol] 3.8 mg/dL 2.5 - 4 .5 mg/dL [facility] Work Phone: [phone] APTTOrdered By: mEmie shah on 04-05-2021 aPTT Coag (Bld) [Time] 48.1 s High 20.0 - 30.5 s [facility] Work Phone: [phone] Comment on above: NOTE: The therapeuti c time for Heparin anticoagulation, based on Xa activity inhibition, is an APTT of 46-80 seconds. Interpretation and review of laboratory results Abnormal [facility] Work Phone: 1 Test Performed by [employer], [address] [place] [address] [facility] Work Phone: 1 aPTT Coag (Bld) [Time] 43.9 s High 20.0 - 30.5 s [facility] Work Phone: 1 Comment on above: NOTE: The therapeuti c time for Heparin anticoagulation, based on Xa activity inhibition, is an APTT of 46-80 seconds. Interpretation and review of laboratory results Abnormal [facility] Work Phone: 1 Test Performed by [employer], [address] [place] [address] [facility] Work Phone: 1 aPTT Coag (Bld) [Time] 43.3 s High 20.0-30.5 [facility] Work Phone: Comment on above: NOTE: The therapeuti c time for Heparin anticoagulation, based on Xa activity inhibition, is an APTT of 46-80 seconds. Result Comment: NOTE : The therapeutic time for Heparin anticoagulation, based on Xa activity inhibition, is an APTT of 46-80 seconds. Performed By: #### T SH5, MBF33, CKMBS, LIPD2 #### [employer] [address] [place] [phone] Interpretation and review of laboratory results Abnormal [facility] Work Phone: 1 Test Performed by [employer], [address] [place] [address] [facility] Work Phone: 1 aPTT Coag (Bld) [Time] 51.8 s High 20.0 - 30.5 s [facility] Work Phone: Comment on above: NOTE: The therapeuti c time for Heparin anticoagulation, based on Xa activity inhibition, is an APTT of 46-80 seconds. Interpretation and review of laboratory results Abnormal [facility] Work Phone: Test Performed by [facility], [address] [place] [id number] [place] [address] Work Phone: APTTon 04-05-2021 aPTT Coag (Bld) [Time] 43.9 s High 20.0-30.5 [facility] Comment on above: Result Comment: NOTE : The therapeutic time for Heparin anticoagulation, based on Xa activity inhibition, is an APTT of 46-80 seconds. Performed By: #### A CTBO #### [address] aPTT Coag (Bld) [Time] 51.8 s High 20.0-30.5 [facility] Comment on above: Result Comment: NOTE : The therapeutic time for Heparin anticoagulation, based on Xa activity inhibition, is an APTT of 46-80 seconds. Performed By: #### B GLU #### [address] Add On Lab TestOrdered By: Leah Sylvester on 04-05-2021 Add On Accepted [facility] Work Phone: Comment on above: Specimen available & acceptable for analysis. Test Performed by [facility] [employer], [address] [place] [phone] [place] [address] Work Phone: Add on test from HISon 04-05 Add on test from HIS Accepted Normal [facility] Comment on above: Result Comment: Spec imen available & acceptable for analysis. Performed By: #### B GLU #### [address] Basic Metabolic Panelon 05-0 Calcium [Mass/Vol] 9.8 mg/dL Normal 8.4-10.4 [facility] Comment on above: Performed By: #### T SH5, MBF33, CKMBS, LIPD2 #### [employer] Anion gap [Moles/Vol] 10 mmol/L Normal 3-13 [facility] Comment on above: Performed By: #### T SH5, MBF33, CKMBS, LIPD2 #### [address] CO2 [Moles/Vol] 26 mmol/L Normal 22-30 [facility] Comment on above: Performed By: #### T SH5, MBF33, CKMBS, LIPD2 #### [address] Creatinine [Mass/Vol] 0.70 mg/dL Normal 0.52-1.25 [facility] Comment on above: Performed By: #### T SH5, MBF33, CKMBS, LIPD2 #### [address] [address] GFR/1.73 sq M.predicted among blacks MDRD (S/P/Bld) [Vol rate/Area] mL/min/{1.73_m2} Normal >60 [facility] Comment on above: Performed By: #### T SH5, MBF33, CKMBS, LIPD2 #### [address] GFR/1.73 sq M.predicted among non-blacks MDRD (S/P/Bld) [Vol rate/Area] 86.9 mL/min/{1.73_m2} Normal >60 [facility] Comment on above: Result Comment: KDIG [...] #### T MARGARET5, MBF33, CKMBS, LIPD2 #### [facility] [address], [place] Glucose [Mass/Vol] 124 mg/dL High 70-100 [facility] Comment on above: Performed By: #### T SH5, MBF33, CKMBS, LIPD2 #### [address], [place] Urea nitrogen [Mass/Vol] 22 mg/dL High 7-20 [facility] Comment on above: Performed By: #### T SH5, MBF33, CKMBS, LIPD2 #### [place] [address], [place] Chloride [Moles/Vol] 102 mmol/L Normal 98-107 [facility] Comment on above: Performed By: #### T SH5, MBF33, CKMBS, LIPD2 #### [place], [place] Potassium [Moles/Vol] 3.6 mmol/L Normal 3.5-5.1 [facility] Comment on above: Performed By: #### T SH5, MBF33, CKMBS, LIPD2 #### [place], [place] Sodium [Moles/Vol] 137 mmol/L Normal 135-145 [facility] Comment on above: Performed By: #### T SH5, MBF33, CKMBS, LIPD2 #### [place] [address], [place] Basic Metabolic PanelOrdered By: Emmie Spring on 04-05-2021 Anion gap [Moles/Vol] 10 mmol/L 3 - 13 mmol/L [facility] Work Phone: Calcium [Mass/Vol] 9.8 mg/dL 8.4 - 10. 4 mg/dL [facility] Work Phone: Chloride [Moles/Vol] 102 mmol/L 98 - 10 7 mmol/L [facility] Work Phone: [phone] [Moles/Vol] 26 mmol/L 22 - 30 mmol/L [facility] Work Phone: [phone] Creatinine [Mass/Vol] 0.7 mg/dL 0.52 - 1.25 mg/dL [facility] Work Phone: [phone] IF NonAfrican Mexican 86.9 mL/min >60 [facility] Work Phone: [phone] Comment on above: KDIGO guidelines pro vide [...] rate/Area] mL/min/{1.73_m2} >60 mL/min [facility] Work Phone: [phone] Glucose [Mass/Vol] 124 mg/dL High 70 - 100 mg/dL [facility] Work Phone: [phone] Potassium [Moles/Vol] 3.6 mmol/L 3.5 - 5.1 mmol/L [facility] Work Phone: [phone] Sodium [Moles/Vol] 137 mmol/L 135 - 145 mmol/L [facility] Work Phone: [phone] Urea nitrogen (BldV) [Mass/Vol] 22 mg/dL High 7 - 20 mg/dL [facility] Work Phone: [phone] Auto DifferentialOrdered By: Emmie Spring on [...] (Bld) 51.9 % 40.0 - 80.0 % [facility] Work Phone: Hematocrit (Bld) [Volume fraction] 34.4 % Low 35.0 - 47.0 % [facility] Work Phone: Hemoglobin.gastrointestin al spec 1 Ql (Stl) 11.6 g/dL Low 11.7 - 16.0 g/dL [facility] Work Phone: [phone] Interpretation and review of laboratory results Abnormal [facility] Work Phone: 1 Lymphocytes (Bld) [#/Vol] 2.8 [...] [#/Vol] 0.6 10*3/uL 0.0 - 0.8 10*3/uL [facility] Work Phone: [phone] Monocytes/100 WBC (Bld) 7.3 % 2.0 - 10.0 % [facility] Work Phone: 1 Platelet distribution width (Bld) [Ratio] 15.2 % High 11.5 - 14.5 % [facility] Work Phone: 1 Platelet mean volume (Bld) [Entitic vol] 10.7 fL High 7.4 - 10.4 fL [facility] Work Phone: 1 Platelets (Bld) [#/Vol] 168 10*3/uL 140 - 440 10*3/uL [facility] Work Phone: 1 RBC (Bld) [#/Vol] 4.16 10*6/uL 3.80 - 5.2 0 10*6/uL [facility] Work Phone: 1 WBC (Bld) [#/Vol] 8.1 10*3/uL 3.6 - 10.7 10*3/uL [facility] Work Phone: 1 Test Performed by [employer], [facility] [employer] [place] [address] [facility] Work Phone: CK WITH REFLEX CK-MBOrdered By: Marcus Nuñez on 04-05-2021 CK [Catalytic activity/Vol] 282 U/L High 30 - 170 U/L [facility] Work Phone: 1 Test Performed by [employer], [facility] [place] [address] [facility] Work Phone: CK-MB IndexOrdered By: Kourtney Nuñez on 04-05-2021 CK-MB Index 2.5 [facility] Work Phone: 1 CK.MB [Mass/Vol] 7.1 ng/mL High 0.0 - 2.4 ng/mL [facility] Work Phone: 1 Comment on above: Both the CKMB and th e Relative Index must be abnormal for clinical significance. Interpretation and review of laboratory results Abnormal [facility] Work Phone: Test Performed by [facility] [employer] [facility], [address] [place] [address] [facility] Work Phone: CKMB Fractionationon 021 CK.MB [Mass/Vol] 7.1 ng/mL High 0.0-2.4 [facility] Comment on above: Result Comment: Both the CKMB and the Relative Index must be abnormal for clinical significance. Performed By: #### T SH5, MBF33, CKMBS, LIPD2 #### [facility] [address] [place] [address] Relative Index 2.5 Normal 0.0-3.0 [facility] Comment on above: Performed By: #### T SH5, MBF33, CKMBS, LIPD2 #### [address] [address] [place] [address] CKMB Screenon 04-05-2021 CK [Catalytic activity/Vol] 282 U/L High 30-170 [facility] Comment on above: Performed By: #### T SH5, MBF33, CKMBS, LIPD2 #### [address] [address] [place] [address] CR Abdomen APon 04-05-2021 CR Abdomen AP Patient Name: INDIRA AHTCH Diagnostic Radiology ACCESSION EXAM DATE/TIME PROCEDURE ORDERING PROVIDER [id number] 04/05/2021 15:54 EDT CR Abdomen AP [id number] EMMIE EVANS CPT code 66091 Reason For Exam (CR Abdomen AP) Preparation [...] Transcribed Date and Time: 04/05/2021 4:01 Normal [facility] CR Chest Portableon 04-05-20 CR Chest Portable [id number] ACCESSION EXAM DATE/TIME PROCEDURE ORDERING PROVIDER [id number] 04/05/2021 15:54 EDT CR Chest Portable [id number] ANGUIANO CPT code 51347 Reason For Exam (CR Chest Portable) Dyspnea [...] Transcribed Date and Time: 04/05/2021 3:59 Normal [facility] EKG 12 LeadOrdered By: Concha Spring on 04-05-2021 [facility] Test Date: 2021-04-05 Pat Name: INDIRA HATCH Department: 1A1C Room: [facility] 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: F 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1950 Requested By: MARCUS NUÑEZ Order Number: [id number] Reading MD: Nestor Pan Measurements Intervals Sidney Rate: 88 P: 42 MN: 184 QRS: -24 QRSD: 102 T: 93 QT: 362 QTc: 438 Interpretive Statements Sinus rhythm Borderline left axis deviation anterior infarct, old Electronically Signed On 04-05-2021 19:05:02 EDT by Nestor Pan [facility] Work Phone: Nikita, [facility] Incoming Cardiology Results From [facility] - 04/05/2021 7:06 PM EDT [facility] Test Date: 2021-04-05 Pat Name: INDIRA HATCH Department: 1A1C Room: 130 Gender: F 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1950 Requested By: MARCUS NUÑEZ Order Number: [id number] Reading MD: Nestor Pan Measurements Intervals Sidney Rate: 88 P: 42 MN: 184 QRS: -24 QRSD: 102 T: 93 QT: 362 QTc: 438 Interpretive Statements Sinus rhythm Borderline left axis deviation anterior infarct, old Electronically Signed On 04-05-2021 19:05:02 EDT by Nestor Pan [facility] Work Phone: EKG 12 leadOrdered By: Kourtney Nuñez on 04-05-2021 [facility] Test Date: 2021-04-04 Pat Name: INDIRA HATCH Department: 1A Room: 130 Gender: F 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: MS : 1950 Requested By: MARCUS NUÑEZ Order Number: [id number] Reading MD: Netsor Pan Measurements Intervals Sidney Rate: 92 P: 26 MN: 173 QRS: -14 QRSD: 100 T: 80 QT: 397 QTc: 492 Interpretive Statements Sinus rhythm Anteroseptal infarct, old Electronically Signed On 04-05-2021 18:39:52 EDT by Nestor Pan [facility] Work Phone: Nikita, [facility] Incoming Cardiology Results From [facility] - 04/05/2021 6:40 PM EDT [facility] Test Date: 2021-04-04 Pat Name: INDIRA HATCH Department: 1A1C Room: 130 Gender: F 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 Results may be 10%-15% lower than serum/plasma values. (CLIA ID [id number]) Performed By: #### T SH5, MBF33, CKMBS, LIPD2 #### [facility] [employer] [facility] [address], [place] Glucose [Mass/Vol] 184 mg/dL [facility] 70-100 [facility] Comment on above: Result Comment: Test performed by glucose meter. Results may be 10%-15% lower than serum/plasma values. (CLIA ID [id number]) Performed By: #### T SH5, MBF33, CKMBS, LIPD2 #### [facility] [employer] [facility] [address], [place] Glucose [Mass/Vol] 228 mg/dL [facility] 70-100 [facility] Comment on above: Result Comment: Test performed by glucose meter. Results may be 10%-15% lower than serum/plasma values. (CLIA ID [id number]) Performed By: #### T SH5, MBF33, CKMBS, LIPD2 #### [facility] [employer] [facility] [address], [place] Hemogram w/ Autodiffon 04-05 Abs Baso Cnt 0.1 10*3/uL Normal 0.0-0.2 [facility] Comment on above: Performed By: #### T SH5, MBF33, CKMBS, LIPD2 #### [facility] [address], [place] Abs Neutrophile Cnt 4.2 10*3/uL Normal 1.8-7.0 [facility] Comment on above: Performed By: #### T SH5, MBF33, CKMBS, LIPD2 #### [place] [address], [place] Basophils/100 WBC (Bld) 0.8 % Normal 0.0-2.0 [facility] Comment on above: Performed By: #### T SH5, MBF33, CKMBS, LIPD2 #### [place] [address], [place] Eosinophils (Bld) [#/Vol] 0.4 10*3/uL Normal 0.0-0.5 [facility] Comment on above: Performed By: #### T SH5, MBF33, CKMBS, LIPD2 #### [place] [address] [place], [place] Eosinophils/100 WBC (Bld) 5.3 % Normal 1.0-6.0 [facility] Comment on above: Performed By: #### T SH5, MBF33, CKMBS, LIPD2 #### [address] Erythrocyte distribution width (RBC) [Ratio] 15.2 % High 11.5-14.5 [facility] Comment on above: Performed By: #### T SH5, MBF33, CKMBS, LIPD2 #### [address] Granulocytes/100 WBC (Bld) 51.9 % Normal 40.0-80.0 [facility] Comment on above: Performed By: #### T SH5, MBF33, CKMBS, LIPD2 #### [place], [place] Hematocrit (Bld) [Volume fraction] 34.4 % Low 35.0-47.0 [facility] Comment on above: Performed By: #### T SH5, MBF33, CKMBS, LIPD2 #### [address] Hemoglobin (Bld) [Mass/Vol] 11.6 g/dL Low 11.7-16.0 [facility] Comment on above: Performed By: #### T SH5, MBF33, CKMBS, LIPD2 #### [place], [place] Lymphocytes (Bld) [#/Vol] 2.8 10*3/uL Normal 1.0-4.3 [facility] Comment on above: Performed By: #### T SH5, MBF33, CKMBS, LIPD2 #### [place] [address] [place], [place] Lymphocytes/100 WBC (Bld) 34.7 % Normal 20.0-40.0 [facility] Comment on above: Performed By: #### T SH5, MBF33, CKMBS, LIPD2 #### [address] MCH (RBC) [Entitic mass] 27.8 pg Normal 26.0-34.0 [facility] Comment on above: Performed By: #### T SH5, MBF33, CKMBS, LIPD2 #### [address] MCHC 33.7 % Normal 32.0-36.0 [facility] Comment on above: Performed By: #### T SH5, MBF33, CKMBS, LIPD2 #### [address] MCV (RBC) [Entitic vol] 82.6 fL Normal 79.0-98.0 [facility] Comment on above: Performed By: #### T SH5, MBF33, CKMBS, LIPD2 #### [address] Monocytes (Bld) [#/Vol] 0.6 10*3/uL Normal 0.0-0.8 [facility] Comment on above: Performed By: #### T SH5, MBF33, CKMBS, LIPD2 #### [address] Monocytes/100 WBC (Bld) 7.3 % Normal 2.0-10.0 [facility] Comment on above: Performed By: #### T SH5, MBF33, CKMBS, LIPD2 #### [facility] [address], [place] Platelet mean volume (Bld) [Entitic vol] 10.7 fL High 7.4-10.4 [facility] Comment on above: Performed By: #### T SH5, MBF33, CKMBS, LIPD2 #### [facility] [address], [place] Platelets (Bld) [#/Vol] 168 10*3/uL Normal 140-440 [facility] Comment on above: Performed By: #### T SH5, MBF33, CKMBS, LIPD2 #### [place] [address], [place] RBC (Bld) [#/Vol] 4.16 10*6/uL Normal 3.80-5.20 [facility] Comment on above: Performed By: #### T SH5, MBF33, CKMBS, LIPD2 #### [place], [place] WBC (Bld) [#/Vol] 8.1 10*3/uL Normal 3.6-10.7 [facility] Comment on above: Performed By: #### T SH5, MBF33, CKMBS, LIPD2 #### [place] [address], [place] LACTIC ACID, PLASMAOrdered B y: Jerad Sylvester on 04-05-2021 Lactate [Moles/Vol] 1.5 mmol/L 0.7 - 2. 0 mmol/L [facility] Work Phone: Lactic Acidon 04-05-2021 Lactate [Moles/Vol] 1.5 mmol/L Normal 0.7-2.0 [facility] Comment on above: Performed By: #### T SH5, MBF33, CKMBS, LIPD2 #### [place] [address], [place] Magnesiumon 04-05-2021 Magnesium [Mass/Vol] 2.5 mg/dL High 1.6-2.3 [facility] [employer] Comment on above: Performed By: #### T SH5, MBF33, CKMBS, LIPD2 #### [facility] [address] [place] [phone] MagnesiumOrdered By: Silvano Spring on 04-05-2021 Magnesium [Mass/Vol] 2.5 mg/dL High 1.6 - 2 .3 mg/dL [facility] Work Phone: [phone] Panel InformationOrdered By: Emmie Spring on 04-05-2021 Interpretation and review of laboratory results Abnormal [facility] Work Phone: [phone] Test Performed by [employer], [address] [place] [id number] [place], [place] [address]A Work Phone: [phone] Panel InformationOrdered By: Marcus Nuñez on 04-05-2021 Interpretation and review of laboratory results Abnormal [facility] Work Phone: [phone] Panel InformationOrdered By: Jerad Sylvester on 04-05-2021 Test Performed by [employer], [address] [place] [address] [facility] Work Phone: [phone] POCT GlucoseOrdered By: Kristopher Stubbs on 04-05-2021 Glucose [Mass/Vol] 267 mg/dL High 70 - 100 mg/dL [facility] Work Phone: [phone] Comment on above: Test performed by gl ucose meter. Results may be 10%-15% lower than serum/plasma values. (CLIA ID [id number]) Interpretation and review of laboratory results Abnormal [facility] Work Phone: [phone] Test Performed by [employer], [address] [place] [address] [facility] Work Phone: [phone] Glucose [Mass/Vol] 184 mg/dL High 70 - 100 mg/dL [facility] Work Phone: [phone] Comment on above: Test performed by gl ucose meter. Results may be 10%-15% lower than serum/plasma values. (CLIA ID [id number]) Interpretation and review of laboratory results Abnormal [facility] Work Phone: [phone] Test Performed by [employer], [address] [place] [id number] [place] [address] Work Phone: [phone] Glucose [Mass/Vol] 228 mg/dL High 70 - 100 mg/dL [facility] Work Phone: [phone] Comment on above: Test performed by gl ucose meter. Results may be 10%-15% lower than serum/plasma values. (CLIA ID [id number]) Interpretation and review of laboratory results Abnormal [facility] Work Phone: [phone] Test Performed by [facility], [address] [place] [id number] [place] [address] Work [phone] Phosphoruson 04-05-2021 Phosphate [Mass/Vol] 4.3 mg/dL Normal 2.5-4.5 [facility] Comment on above: Performed By: #### T SH5, MBF33, CKMBS, LIPD2 #### [facility] [employer] [address] [place] [address] PhosphorusOrdered By: Brennen Spring on 04-05-2021 Phosphate [Mass/Vol] 4.3 mg/dL 2.5 - 4 .5 mg/dL [facility] Work Phone: [phone] Procalcitoninon 04-05-2021 Procalcitonin < 0.10 Normal <0.10 [facility] Comment on above: Performed By: #### T SH5, MBF33, CKMBS, LIPD2 #### [facility] [employer] [address] [place] [address] Interpretation See Below Normal [facility] Comment on above: Result Comment: PCT <0.50 = Low risk of severe sepsis and/or septic shock. PCT >2.00 = High risk of severe sepsis and/or septic shock. Performed By: #### T SH5, MBF33, CKMBS, LIPD2 #### [facility] [address] [place] [address] ProcalcitoninOrdered By: Janes Nuñez on 04-05-2021 Interpretation See Below [facility] Work Phone: Comment on above: PCT <0.50 = Low risk of severe sepsis and/or septic shock. PCT >2.00 = High risk of severe sepsis and/or septic shock. Procalcitonin <0.10 <0.10 ng/mL [facility] Work Phone: Test Performed by [employer], [address] [place] [address] [facility] Work Phone: TroponinOrdered By: Marcus Nuñez on 04-05-2021 Interpretation and review of laboratory results Abnormal [facility] Work Phone: Troponin I.cardiac [Mass/Vol] 2.520 ng/mL High 0.000 - 0.034 ng/mL [facility] Work Phone: Comment on above: . Test Performed by [employer], [address] [place] [address] [facility] Work Phone: Troponin Ion 04-05-2021 Troponin I.cardiac [Mass/Vol] 2.520 ng/mL High 0.000-0.034 [employer] Comment on above: Result Comment: . Performed By: #### T SH5, MBF33, CKMBS, LIPD2 #### [employer] [address] [place] [phone] XR ABDOMEN (KUB) (SINGLE AP VIEW)Ordered By: Emmie Spring on 04-05-2021 Patient Name: INDIRA HATCH Diagnostic Radiology ACCESSION EXAM DATE/TIME PROCEDURE ORDERING PROVIDER [id number] 04/05/2021 15:54 EDT CR Abdomen AP [id number] EMMIE EVANS CPT code 99877 Reason For Exam (CR Abdomen AP) Preparation [...] Phone: Nikita, [facility] Incoming Radiology Results From [facility] - 04/05/2021 4:07 PM EDT Patient Name: INDIRA HATCH Diagnostic Radiology ACCESSION EXAM DATE/TIME PROCEDURE ORDERING PROVIDER [id number] 04/05/2021 15:54 EDT CR Abdomen AP EMMIE XAVIER CPT code 89671 Reason For Exam (CR Abdomen AP) Preparation [...] Radiology ACCESSION EXAM DATE/TIME PROCEDURE ORDERING PROVIDER [id number] 04/05/2021 15:54 EDT CR Chest Portable EMIME XAVIER CPT code 57108 Reason For Exam (CR Chest Portable) Dyspnea [...] Phone: Nikita, [facility] Incoming Radiology Results From [facility] - 04/05/2021 4:02 PM EDT [facility]: [id number] Radiology ACCESSION EXAM DATE/TIME PROCEDURE ORDERING PROVIDER [id number] 04/05/2021 15:54 EDT CR Chest Portable EMMIE XAVIER CPT code 76413 Reason For Exam (CR Chest Portable) Dyspnea [...] 04-04-2021 Add On Rejected [facility] Work Phone: [phone] Comment on above: Quantity not suffici ent for testing. Test Performed by [employer], [address] [place] [address] [facility] Work Phone: [phone] Add on test from HISon 04-04 Add on test from [facility] Rejected Normal [facility] Comment on above: Result Comment: Jose tity not sufficient for testing. Performed By: #### T SH5, MBF33, CKMBS, LIPD2 #### [employer] [address] [place] [address] CBC auto differentialOrdered By: Marcus Nueñz on 04-04-2021 Absolute Baso # 0.1 10*3/uL 0.0 - 0.2 10*3/uL [facility] Work Phone: [phone] Absolute Neut # 5.8 10*3/uL 1.8 - 7.0 10*3/uL [facility] Work Phone: [phone] Basophils/100 WBC (Bld) 1.5 % 0.0 - 2.0 % [facility] Work Phone: [phone] Eosinophils (Bld) [#/Vol] 0.3 10*3/uL 0. 0 - 0.5 10*3/uL [facility] Work Phone: [phone] Eosinophils/100 WBC (Bld) 2.6 % 1.0 - 6.0 % [facility] Work Phone: [phone] Granulocytes/100 WBC (Bld) 60.5 % 40.0 - 80.0 % [facility] Work Phone: [phone] Hematocrit (Bld) [Volume fraction] 35.9 % 35.0 - 47.0 % [facility] Work Phone: [phone] Hemoglobin.gastrointestin al spec 1 Ql (Stl) 12.0 g/dL 11.7 - 16.0 g/dL [facility] Work Phone: [phone] Interpretation and review of laboratory results Abnormal [facility] Work Phone: [phone] Lymphocytes (Bld) [#/Vol] 2.8 10*3/uL 1. 0 - 4.3 10*3/uL [facility] Work Phone: [phone] Lymphocytes/100 WBC (Bld) 28.6 % 20 .0 - 40.0 % [facility] Work Phone: 1 MCH (RBC) [Entitic mass] 27.9 pg 26. 0 - 34.0 pg [facility] Work Phone: 1 MCHC (RBC) [Mass/Vol] 33.6 % 32.0 - 36.0 % [facility] Work Phone: MCV (RBC) [Entitic vol] 83.0 fL 79.0 - 98.0 fL [facility] Work Phone: Monocytes (Bld) [#/Vol] 0.7 10*3/uL 0.0 - 0.8 10*3/uL [facility] Work Phone: Monocytes/100 WBC (Bld) 6.8 % 2.0 - 10.0 % [employer] Phone: Platelet distribution width (Bld) [Ratio] 15.3 % High 11.5 - 14.5 % [facility] Work Phone: 1 Platelet mean volume (Bld) [Entitic vol] 10.8 fL High 7.4 - 10.4 fL [facility] Work Phone: Platelets (Bld) [#/Vol] 181 10*3/uL 140 - 440 10*3/uL [facility] Work Phone: RBC (Bld) [#/Vol] 4.32 10*6/uL 3.80 - 5.2 0 10*6/uL [facility] Work Phone: WBC (Bld) [#/Vol] 9.6 10*3/uL 3.6 - 10.7 10*3/uL [facility] Work Phone: 1 Test Performed by [employer] [address] [facility] Work Phone: CK WITH REFLEX CK-MBOrdered By: Marcus Nuñez on 04-04-2021 CK [Catalytic activity/Vol] 298 U/L High 30 - 170 U/L [facility] Work Phone: [phone] with Reflex CK-MBOrdered By: Marcus Nuñez on 04-04-2021 CK [Catalytic activity/Vol] 298 U/L High 30 - 170 U/L [facility] Work Phone: [phone] CK-MB IndexOrdered By: Kourtney Nuñez on 04-04-2021 CK-MB Index 3.1 High [facility] Work Phone: [phone] CK.MB [Mass/Vol] 9.3 ng/mL High 0.0 - 2.4 ng/mL [facility] Work Phone: [phone] Comment on above: Both the CKMB and th e Relative Index must be abnormal for clinical significance. Interpretation and review of laboratory results Abnormal [facility] Work Phone: [phone] Test Performed by [employer], [address] [place] [address] [facility] Work Phone: [phone] CK-MB Index 3.1 High [facility] Work Phone: [phone] CK.MB [Mass/Vol] 9.3 ng/mL High 0.0 - 2.4 ng/mL [facility] Work Phone: [phone] Comment on above: Both the CKMB and th e Relative Index must be abnormal for clinical significance. Interpretation and review of laboratory results Abnormal [facility] Work Phone: [phone] Test Performed by [employer], [address] [place] [address] [facility] Work Phone: [phone] CKMB Fractionationon 021 CK.MB [Mass/Vol] 9.3 ng/mL High 0.0-2.4 [facility] Comment on above: Result Comment: Both the CKMB and the Relative Index must be abnormal for clinical significance. Performed By: #### T SH5, MBF33, CKMBS, LIPD2 #### [employer] [address] [place] [phone] Relative Index 3.1 High 0.0-3.0 [facility] Comment on above: Performed By: #### T SH5, MBF33, CKMBS, LIPD2 #### [facility] [address] [place] [address] CK.MB [Mass/Vol] 9.3 ng/mL High 0.0-2.4 [facility] Comment on above: Result Comment: Both the CKMB and the Relative Index must be abnormal for clinical significance. Performed By: #### T SH5, MBF33, CKMBS, LIPD2 #### [facility] [address], [place] Relative Index 3.1 High 0.0-3.0 [facility] Comment on above: Performed By: #### T SH5, MBF33, CKMBS, LIPD2 #### [place] [address], [place] CKMB Screenon 04-04-2021 CK [Catalytic activity/Vol] 298 U/L High 30-170 [facility] Comment on above: Performed By: #### B GLU #### [place], [place] CK [Catalytic activity/Vol] 298 U/L High 30-170 [facility] Comment on above: Performed By: #### T SH5, MBF33, CKMBS, LIPD2 #### [place] [address], [place] CR Chest Portableon 04-04-20 21 CR Chest Portable Patient Name: INDIRA HATCH Diagnostic Radiology ACCESSION EXAM DATE/TIME PROCEDURE ORDERING PROVIDER [id number] 04/04/2021 20:54 EDT CR Chest Portable FACAROMARCUS Méndez CPT code 50991 Reason For Exam (CR Chest Portable) SOB [...] Transcribed Date and Time: 04/04/2021 8:49 Normal [facility] Comp Panel with Mg Reflexon 04-04-2021 ALT [Catalytic activity/Vol] 24 U/L Normal 0-34 [facility] Comment on above: Result Comment: The ALT test is performed by an updated assay method. Please note that the reference intervals have been changed and are now sex specific. Performed By: #### B GLU #### [facility] [address], [place] Calcium [Mass/Vol] 9.9 mg/dL Normal 8.4-10.4 [facility] Comment on above: Performed By: #### B GLU #### [place] [address], [place] Glucose [Mass/Vol] 159 mg/dL High 70-100 [facility] Comment on above: Performed By: #### B GLU #### [facility] [address], [place] Urea nitrogen [Mass/Vol] 22 mg/dL High 7-20 [facility] Comment on above: Performed By: #### B GLU #### [facility] [address], [place] ALP [Catalytic activity/Vol] 43 U/L Normal 38-126 [facility] Comment on above: Performed By: #### B GLU #### [facility] [address], [place] Anion gap [Moles/Vol] 12 mmol/L Normal 3-13 [facility] Comment on above: Performed By: #### B GLU #### [facility] [address], [place] AST [Catalytic activity/Vol] 49 U/L High 15-46 [facility] Comment on above: Performed By: #### B GLU #### [place] [address], [place] Bilirubin [Mass/Vol] 1.1 mg/dL Normal 0.2-1.3 [facility] Comment on above: Performed By: #### B GLU #### [address] [place] [address] [place], [place] CO2 [Moles/Vol] 25 mmol/L Normal 22-30 [facility] Comment on above: Performed By: #### B GLU #### [place] [address] [place], [place] Creatinine [Mass/Vol] 0.70 mg/dL Normal 0.52-1.25 [facility] Comment on above: Performed By: #### B GLU #### [address] GFR/1.73 sq M.predicted among blacks MDRD (S/P/Bld) [Vol rate/Area] mL/min/{1.73_m2} Normal >60 [facility] Comment on above: Performed By: #### B GLU #### [place] [address] [place], [place] GFR/1.73 sq M.predicted among non-blacks MDRD (S/P/Bld) [Vol rate/Area] 86.9 mL/min/{1.73_m2} Normal >60 [facility] Comment on above: Result Comment: KDIG [...] secretion. Performed By: #### B GLU #### [address], [place] Protein [Mass/Vol] 7.1 g/dL Normal 6.3-8.2 [facility] Comment on above: Performed By: #### B GLU #### [facility] [address], [place] Chloride [Moles/Vol] 101 mmol/L Normal 98-107 [facility] Comment on above: Performed By: #### B GLU #### [place] [address], [place] Potassium [Moles/Vol] 3.3 mmol/L Low 3.5-5.1 [facility] Comment on above: Performed By: #### B GLU #### [place] [address], [place] Sodium [Moles/Vol] 139 mmol/L Normal 135-145 [facility] Comment on above: Performed By: #### B GLU #### [place] [address], [place] Albumin [Mass/Vol] 4.1 g/dL Normal 3.5-5.0 [facility] Comment on above: Performed By: #### B GLU #### [place] [address], [place] Comprehensive Metabolic Pane l w/ Reflex to MGOrdered By: Marcus Nuñez on 04-04-2021 Albumin [Mass/Vol] 4.1 g/dL 3.5 - 5.0 g/dL [facility] Work Phone: ALP (Bld) [Catalytic activity/Vol] 43 U/L 38 - 126 U/L [facility] Work Phone: ALT [Catalytic activity/Vol] 24 U/L 0 - 34 U/L [facility] Work Phone: Comment on above: The ALT test is perf ormed by an updated assay method. Please note that the reference intervals have been changed and are now sex specific. Anion gap [Moles/Vol] 12 mmol/L 3 - 13 mmol/L [facility] Work Phone: AST [Catalytic activity/Vol] 49 U/L High 15 - 46 U/L [facility] Work Phone: [phone] Bilirubin [Mass/Vol] 1.1 mg/dL 0.2 - 1 .3 mg/dL [facility] Work Phone: [phone] Calcium [Mass/Vol] 9.9 mg/dL 8.4 - 10. 4 mg/dL [facility] Work Phone: [phone] Chloride [Moles/Vol] 101 mmol/L 98 - 10 7 mmol/L [facility] Work Phone: [phone] [Moles/Vol] 25 mmol/L 22 - 30 mmol/L [facility] Work Phone: [phone] Creatinine [Mass/Vol] 0.7 mg/dL 0.52 - 1.25 mg/dL [facility] Work Phone: [phone] EGFR IF NonAfrican Mexican 86.9 mL/min >60 [facility] Work Phone: [phone] Comment on above: KDIGO guidelines pro vide [...] fraction] 7.1 g/dL 6.3 - 8.2 g/dL [facility] Work Phone: [phone] GFR/1.73 sq M.predicted among blacks MDRD (S/P/Bld) [Vol rate/Area] mL/min/{1.73_m2} >60 mL/min [facility] Work Phone: [phone] Glucose [Mass/Vol] 159 mg/dL High 70 - 100 mg/dL [facility] Work Phone: [phone] Potassium [Moles/Vol] 3.3 mmol/L Low 3.5 - 5.1 mmol/L [facility] Work Phone: [phone] Sodium [Moles/Vol] 139 mmol/L 135 - 145 mmol/L [facility] Work Phone: Urea nitrogen (BldV) [Mass/Vol] 22 mg/dL High 7 - 20 mg/dL [facility] Work Phone: [phone] Glucose,BedsideOrdered By: Kathleen Stubbs on 04-04-2021 Glucose [Mass/Vol] 156 mg/dL High 70-100 [facility] Work Phone: Comment on above: Test performed by gl ucose meter. Results may be 10%-15% lower than serum/plasma values. (CLIA ID [id number]) Result Comment: Test performed by glucose meter. Results may be 10%-15% lower than serum/plasma values. (CLIA ID [id number]) Performed By: #### T SH5, MBF33, CKMBS, LIPD2 #### [facility] [address] [place] [phone] Hemoglobin A1Con 04-04-2021 Glucose [Mass/Vol] 174 mg/dL Normal [facility] Comment on above: Performed By: #### B GLU #### [facility] [employer] [place] [address] [place] [address] HbA1c (Bld) [Mass fraction] 7.7 % Abnormal [facility] Comment on above: Result Comment: Norm al less than 5.7% Prediabetes 5.7% to 6.4% Diabetes 6.5% or higher --HgbA1C levels may not be accurate in patients who have renal disease, received recent blood transfusions, are anemic, or who have dyshemoglobinemia. Performed By: #### B GLU #### [facility] [employer] [address] [address] Hemoglobin O2JLmypscy By: Qing Nuñez on 04-04-2021 HbA1c (Bld) [Mass fraction] 7.7 % Abnormal [facility] Work Phone: Comment on above: Normal less than 5.7 % Prediabetes 5.7% to 6.4% Diabetes 6.5% or higher --HgbA1C levels may not be accurate in patients who have renal disease, received recent blood transfusions, are anemic, or who have dyshemoglobinemia. Interpretation and review of laboratory results Abnormal [facility] Work Phone: Magnesium [Mass/Vol] 174 mg/dL [facility] Work Phone: Test Performed by [facility], [address] [place] [id number] [place] [address] Work Phone: Hemogram w/ Autodiffon 04-04 Abs Baso Cnt 0.1 10*3/uL Normal 0.0-0.2 [facility] Comment on above: Performed By: #### B GLU #### [address] [address] Abs Neutrophile Cnt 5.8 10*3/uL Normal 1.8-7.0 [facility] Comment on above: Performed By: #### B GLU #### [address] [address] Basophils/100 WBC (Bld) 1.5 % Normal 0.0-2.0 [facility] Comment on above: Performed By: #### B GLU #### [address] [address] Eosinophils (Bld) [#/Vol] 0.3 10*3/uL Normal 0.0-0.5 [facility] Comment on above: Performed By: #### B GLU #### [address] [address] Eosinophils/100 WBC (Bld) 2.6 % Normal 1.0-6.0 [facility] Comment on above: Performed By: #### B GLU #### [address] [address] Erythrocyte distribution width (RBC) [Ratio] 15.3 % High 11.5-14.5 [facility] Comment on above: Performed By: #### B GLU #### [place] [address], [place] Granulocytes/100 WBC (Bld) 60.5 % Normal 40.0-80.0 [facility] Comment on above: Performed By: #### B GLU #### [place] [address], [place] Hematocrit (Bld) [Volume fraction] 35.9 % Normal 35.0-47.0 [facility] Comment on above: Performed By: #### B GLU #### [place] [address] [address], [place] Hemoglobin (Bld) [Mass/Vol] 12.0 g/dL Normal 11.7-16.0 [facility] Comment on above: Performed By: #### B GLU #### [address] [place], [place] Lymphocytes (Bld) [#/Vol] 2.8 10*3/uL Normal 1.0-4.3 [facility] Comment on above: Performed By: #### B GLU #### [place] [address] [address], [place] Lymphocytes/100 WBC (Bld) 28.6 % Normal 20.0-40.0 [facility] Comment on above: Performed By: #### B GLU #### [address] [place], [place] MCH (RBC) [Entitic mass] 27.9 pg Normal 26.0-34.0 [facility] Comment on above: Performed By: #### B GLU #### [place] [address], [place] MCHC 33.6 % Normal 32.0-36.0 [facility] Comment on above: Performed By: #### B GLU #### [address] [place], [place] MCV (RBC) [Entitic vol] 83.0 fL Normal 79.0-98.0 [facility] Comment on above: Performed By: #### B GLU #### [place] [address], [place] Monocytes (Bld) [#/Vol] 0.7 10*3/uL Normal 0.0-0.8 [facility] Comment on above: Performed By: #### B GLU #### [place] [address] [address], [place] Monocytes/100 WBC (Bld) 6.8 % Normal 2.0-10.0 [facility] Comment on above: Performed By: #### B GLU #### [place] [address] [address], [place] Platelet mean volume (Bld) [Entitic vol] 10.8 fL High 7.4-10.4 [facility] Comment on above: Performed By: #### B GLU #### [place] [address] [address], [place] Platelets (Bld) [#/Vol] 181 10*3/uL Normal 140-440 [facility] Comment on above: Performed By: #### B GLU #### [place] [address] [address], [place] RBC (Bld) [#/Vol] 4.32 10*6/uL Normal 3.80-5.20 [facility] Comment on above: Performed By: #### B GLU #### [place] [address] [address], [place] WBC (Bld) [#/Vol] 9.6 10*3/uL Normal 3.6-10.7 [facility] Comment on above: Performed By: #### B GLU #### [place] [address], [place] Lactic AcidOrdered By: Kourtney Nuñez on 04-04-2021 Lactate [Moles/Vol] 2.3 mmol/L Critically high 0.7-2.0 [facility] Work Phone: Comment on above: Performed By: #### B GLU #### [place] [address] [address], [place] Lactic acid, plasmaOrdered B y: Marcus Nuñez on 04-04-2021 Interpretation and review of laboratory results Abnormal [facility] Work Phone: Test Performed by [facility] [employer] [facility], [facility] [place] [address] [facility] Work Phone: Lipid Panelon 04-04-2021 Chol/HDL 5 Normal [facility] Comment on above: Result Comment: Ref Range: < 3 Low Risk for CHD 3-6 Mod Risk for CHD > 6 High Risk for CHD Performed By: #### T SH5, MBF33, CKMBS, LIPD2 #### [facility] [address] [facility] [place] [place] [address] Cholesterol [Mass/Vol] 169 mg/dL Normal < 200 [facility] Comment on above: Performed By: #### T SH5, MBF33, CKMBS, LIPD2 #### [facility] [address] [facility] [place] [address] Cholesterol in HDL [Mass/Vol] 33 mg/dL Low 40-60 [facility] Comment on above: Performed By: #### T SH5, MBF33, CKMBS, LIPD2 #### [facility] [employer] [facility] [place] [address] Low Density Lipoprotein 89 mg/dL Normal <100 [facility] Comment on above: Performed By: #### T SH5, MBF33, CKMBS, LIPD2 #### [facility] [employer] [place] [address] [place] [address] Triglyceride [Mass/Vol] 236 mg/dL Abnormal <150 [facility] Comment on above: Performed By: #### T SH5, MBF33, CKMBS, LIPD2 #### [facility] [employer] [place] [address] [place] [address] Lipid PanelOrdered By: Kourtney is Girish on 04-04-2021 Cholesterol [Mass/Vol] 169 mg/dL <200 [facility] Work Phone: Cholesterol in HDL [Mass/Vol] 33 mg/dL Low 40 - 60 mg/dL [facility] Work Phone: Cholesterol in LDL [Mass/Vol] 89 mg/dL <100 [facility] Work Phone: Cholesterol.total/Cholest patrick in HDL [Mass ratio] 5 {ratio} [employer] Work Phone: Comment on above: Ref Range: < 3 Low Risk for CHD 3-6 Mod Risk for CHD > 6 High Risk for CHD Triglyceride [Mass/Vol] 236 mg/dL Abnormal <150 [facility] Work Phone: [phone] Magnesiumon 04-04-2021 Magnesium [Mass/Vol] 1.5 mg/dL Low 1.6-2.3 [employer] Comment on above: Performed By: #### B GLU #### [employer] [facility] [place] [address] MagnesiumOrdered By: Marcus Nuñez on 04-04-2021 Magnesium [Mass/Vol] 1.5 mg/dL Low 1.6 - 2 .3 mg/dL [employer] Work Phone: No Panel InformationOrdered By: Marcus Nuñez on 04-04-2021 Interpretation and review of laboratory results Abnormal [employer] Work Phone: [phone] Test Performed by [employer], [address] [place] [address] [employer] Work Phone: Interpretation and review of laboratory results Abnormal [employer] Work Phone: Test Performed by [employer] [address] [place] [address] [employer] Work Phone: Interpretation and review of laboratory results Abnormal [employer] Work Phone: Test Performed by [employer], [address] [place] [phone] [employer] Work Phone: Prothrombin Timeon INR 1.1 Normal 0.9-1.1 [employer] Comment on above: Result Comment: Rafael mmended [...] Infarction Performed By: #### B GLU #### [employer] [address] [place] [phone] PT Coag (PPP) [Time] 11.6 s Normal 9.0-12.0 [facility] Comment on above: Result Comment: . Performed By: #### B GLU #### [employer] [address] [place] [phone] Protime-INROrdered By: Kourtney Nuñez on 04-04-2021 INR Coag (Bld) [Relative time] 1.1 {INR} [employer] Work Phone: [phone] Comment on above: Recommended Anticoag ulant Therapy: [...] 11.6 s 9.0 - 1 2.0 s [employer] Work Phone: Comment on above: . Test Performed by [employer], [address] [place] [address] [employer] Work Phone: [phone] TSH without ReflexOrdered By : Marcus Nuñez on 04-04-2021 TSH Qn 2.269 u[IU]/mL 0.465 - 4.680 u[IU]/mL [employer] Work Phone: [phone] Test Performed by [employer], [address] [place] [address] [employer] Work Phone: [phone] Thyroid Stim. Hormoneon Thyroid Stim. Hormone 2.269 u[IU]/mL Normal 0.465-4.68 0 [facility] Comment on above: Performed By: #### T SH5, MBF33, CKMBS, LIPD2 #### [employer] [address] [place] [phone] TroponinOrdered By: Marcus Nuñez on 04-04-2021 Troponin I.cardiac [Mass/Vol] 3.040 ng/mL High 0.000 - 0.034 ng/mL [facility] Work Phone: Comment on above: . Troponin Ion 04-04-2021 Troponin I.cardiac [Mass/Vol] 3.040 ng/mL High 0.000-0.034 [facility] Comment on above: Result Comment: . Performed By: #### B GLU #### [facility] [address] [place] [address] XR CHEST PORTABLEOrdered By: Marcus Nuñez on 04-04-2021 Patient Name: INDIRA HATCH Diagnostic Radiology ACCESSION EXAM DATE/TIME PROCEDURE ORDERING PROVIDER [id number] 04/04/2021 20:54 EDT CR Chest Portable MARCUS NUÑEZ CPT code 13752 Reason For Exam (CR Chest Portable) SOB [...] AHMAD Transcribed Date and Time: 04/04/2021 8:49 [facility] Work Phone: Nikita, [facility] Incoming Radiology Results From [facility] - 04/04/2021 8:55 PM EDT Patient Name: INDIRA HATCH Diagnostic Radiology ACCESSION EXAM DATE/TIME PROCEDURE ORDERING PROVIDER [id number] 04/04/2021 20:54 EDT CR Chest Portable MARCUS NUÑEZ CPT code 91761 Reason For Exam (CR Chest Portable) SOB [...] 163 mg/dL High 68 - 126 mg/dL [facility] HbA1c 7.3 % High 4.2 - 6 % [facility] Interpretation and review of laboratory results Abnormal Invalid Interpretation Code [facility] Lipid Panelon 03-09-2018 Cholesterol 171 mg/dL Invalid Interpretation Code 100 - 199 mg/dL [facility] Cholesterol to HDL Ratio 5.3 {ratio} Invalid Interpretation Code [facility] HDL Cholesterol 139 mg/dL Invalid Interpretation Code [facility] HDL Cholesterol 32 mg/dL Low 40 - 59 mg/dL [facility] LDL Cholesterol 94 mg/dL Invalid Interpretation Code 10 - 130 mg/dL [facility] Triglyceride 225 mg/dL High 30 - 150 mg/dL [facility] Microalbumin, Urine, Randomo n 03-09-2018 ACR (microalbumin/creatinine) ratio 6 mg/g crea Invalid Interpretation Code 0 - 25 [facility] Interpretation and review of laboratory results Normal Invalid Interpretation Code [facility] Urine, creatinine 90.0 mg/dL Invalid Interpretation Code [facility] Urine, microalbumin 0.5 mg/dL Invalid Interpretation Code 0 - 1.8 mg/dL [facility] POC Glucoseon 12-13-2017 Glucose 170 mg/dL Invalid Interpretation Code [facility] Work Phone: Interpretation and review of laboratory results Abnormal Invalid Interpretation Code [facility] Work Phone: Glucose 172 mg/dL High 65 - 99 mg/dL [facility] Interpretation and review of laboratory results Abnormal Invalid Interpretation Code [facility] Basic Metabolic Panelon Anion gap 18 mmol/L Invalid Interpretation Code 10 - 20 mmol/L [facility] Bicarbonate (HCO3) 27 mmol/L Invalid Interpretation Code 21 - 32 mmol/L [facility] BUN/Creatinine Ratio 18.3 mg/mg Invalid Interpretation Code 10.0 - 20.0 [facility] Calcium 10.0 mg/dL Invalid Interpretation Code 8.4 - 10.2 mg/dL [facility] Chloride 99 mmol/L Invalid Interpretation Code 98 - 108 mmol/L [facility] Creatinine 0.71 mg/dL Invalid Interpretation Code 0.6 - 1.2 mg/dL [facility] eGFR (non-black) The eGFR should be used for monitoring renal function only and not for medication dosing. Invalid Interpretation Code [facility] eGFR (non-black) 88 mL/min/{1.73_m2} Invalid Interpretation Code >=60 [facility] Glucose 138 mg/dL High 65 - 99 mg/dL [facility] Interpretation and review of laboratory results Abnormal Invalid Interpretation Code [facility] Potassium 4.6 mmol/L Invalid Interpretation Code 3.5 - 5.1 mmol/L [facility] Sodium 139 mmol/L Invalid Interpretation Code 135 - 145 mmol/L [facility] Urea nitrogen 13 mg/dL Invalid Interpretation Code 8 - 25 mg/dL [facility] CBC Auto Differentialon Basophils 0.11 K/mcL Invalid Interpretation Code 0.00 - 0.30 [facility] Basophils/100 leukocytes 1.2 % Invalid Interpretation Code [facility] Eosinophils 0.49 K/mcL Invalid Interpretation Code 0.00 - 0.50 [facility] Eosinophils/100 leukocytes 5.2 % Invalid Interpretation Code [facility] Erythrocytes (RBC) 0.00 K/mcL Invalid Interpretation Code 0.00 - 0.00 [facility] Erythrocytes (RBC) 4.44 M/mcL Invalid Interpretation Code 4.00 - 5.20 [facility] Hematocrit (HCT) 38.5 % Invalid Interpretation Code 36 - 46 % [facility] Hemoglobin (HGB) 12.5 g/dL Invalid Interpretation Code 12 - 16 g/dL [facility] IG Absolute 0.04 K/mcL Invalid Interpretation Code 0.00 - 0.30 [facility] IG Percent 0.40 % Invalid Interpretation Code [facility] Interpretation and review of laboratory results Normal Invalid Interpretation Code [facility] Lymphocytes 3.38 K/mcL Invalid Interpretation Code 0.90 - 4.00 [facility] Lymphocytes/100 leukocytes 35.8 % Invalid Interpretation Code [facility] MCH 28.2 pg Invalid Interpretation Code 26 - 34 pg [facility] MCHC 32.5 g/dL Invalid Interpretation Code 31 - 37 g/dL [facility] MCV 86.7 fL Invalid Interpretation Code 80 - 100 fL [facility] Monocytes 0.51 K/mcL Invalid Interpretation Code 0.30 - 0.90 [facility] Monocytes/100 leukocytes 5.4 % Invalid Interpretation Code [facility] Neutrophils 4.91 K/mcL Invalid Interpretation Code 1.70 - 7.00 [facility] Neutrophils/100 leukocytes 52.0 % Invalid Interpretation Code [facility] Nucleated erythrocytes/100 erythrocytes 0.0 % Invalid Interpretation Code [facility] Platelet mean volume (PMV) 12.7 fL Invalid Interpretation Code 9 - 15.5 fL [facility] Platelets 205 K/mcL Invalid Interpretation Code 150 - 400 [facility] RDW-CA 14.5 % Invalid Interpretation Code 11.6 - 14.8 % [facility] WBC (Leukocytes) 9.44 K/mcL Invalid Interpretation Code 4.50 - 11.00 [facility] CBC and Differentialon 12-06 Creatinine The following orders were created for panel order CBC and Differential. Procedure Abnormality Status --------- ------ CBC Auto Differential[[id number]] Normal Final result Please view results for these tests on the individual orders. Invalid Interpretation Code [facility] Work Phone: Creatinine The following orders were created for panel order CBC and Differential. Procedure Abnormality Status --------- ------ CBC Auto Differential[[id number]] Normal Final result Please view results for these tests on the individual orders. Invalid Interpretation Code [facility] Hemoglobin A1con 12-06-2017 Glucose 177 mg/dL High 68 - 126 mg/dL [facility] HbA1c 7.8 % High 4.2 - 6 % [facility] Interpretation and review of laboratory results Abnormal Invalid Interpretation Code [facility] Glucose 177 mg/dL High 68 - 126 mg/dL [facility] HbA1c 7.8 % High 4.2 - 6 % [facility] POC Glucoseon 11-15-2017 Glucose 129 mg/dL High 65 - 99 mg/dL [facility] Interpretation and review of laboratory results Abnormal Invalid Interpretation Code [facility] Potassium Levelon 11-15-2017 Interpretation and review of laboratory results Normal Invalid Interpretation Code [facility] Potassium 4.0 mmol/L Invalid Interpretation Code 3.5 - 5.1 mmol/L [facility] Potassium Level On arrival for surgery Invalid Interpretation Code [facility] Basic Metabolic Panelon Anion gap 17 mmol/L Invalid Interpretation Code 10 - 20 mmol/L [facility] Bicarbonate (HCO3) 27 mmol/L Invalid Interpretation Code 21 - 32 mmol/L [facility] BUN/Creatinine Ratio 19.7 mg/mg Invalid Interpretation Code 10.0 - 20.0 [facility] Calcium 10.3 mg/dL High 8.4 - 10.2 mg/dL [facility] Chloride 100 mmol/L Invalid Interpretation Code 98 - 108 mmol/L [facility] Creatinine 0.66 mg/dL Invalid Interpretation Code 0.6 - 1.2 mg/dL [facility] eGFR (non-black) 92 mL/min/{1.73_m2} Invalid Interpretation Code >=60 [facility] eGFR (non-black) The eGFR should be used for monitoring renal function only and not for medication dosing. Invalid Interpretation Code [facility] Glucose mass conc 103 mg/dL High 65 - 99 mg/dL [facility] Interpretation and review of laboratory results Abnormal Invalid Interpretation Code [facility] Potassium molar conc 5.2 mmol/L High 3.5 - 5 .1 mmol/L [facility] Sodium 139 mmol/L Invalid Interpretation Code 135 - 145 mmol/L [facility] Urea nitrogen 13 mg/dL Invalid Interpretation Code 8 - 25 mg/dL [facility] Anion gap 17 mmol/L Invalid Interpretation Code 10 - 20 mmol/L [facility] Bicarbonate (HCO3) 27 mmol/L Invalid Interpretation Code 21 - 32 mmol/L [facility] BUN/Creatinine Ratio 19.7 mg/mg Invalid Interpretation Code 10.0 - 20.0 [facility] Calcium 10.3 mg/dL High 8.4 - 10.2 mg/dL [facility] Chloride 100 mmol/L Invalid Interpretation Code 98 - 108 mmol/L [facility] Creatinine 0.66 mg/dL Invalid Interpretation Code 0.6 - 1.2 mg/dL [facility] eGFR (non-black) The eGFR should be used for monitoring renal function only and not for medication dosing. Invalid Interpretation Code [facility] eGFR (non-black) 92 mL/min/{1.73_m2} Invalid Interpretation Code >=60 [facility] Glucose 103 mg/dL High 65 - 99 mg/dL [facility] Interpretation and review of laboratory results Abnormal Invalid Interpretation Code [facility] Potassium 5.2 mmol/L High 3.5 - 5.1 mmol/L [facility] Sodium 139 mmol/L Invalid Interpretation Code 135 - 145 mmol/L [facility] Urea nitrogen 13 mg/dL Invalid Interpretation Code 8 - 25 mg/dL [facility] ECG 12 Leadon 11-05-2017 Atrial Rate Invalid Interpretation Code [facility] Work Phone: P Sidney Invalid Interpretation Code [facility] Work Phone: P-R Interval Invalid Interpretation Code [facility] Work Phone: Q-T Interval Invalid Interpretation Code [facility] Work Phone: Q-T Interval (corrected) Invalid Interpretation Code [facility] Work Phone: QRS Duration Invalid Interpretation Code [facility] Work Phone: QTC Calculation (Bezet) Invalid Interpretation Code [facility] Work Phone: R Sidney Invalid Interpretation Code [facility] Work Phone: T Sidney Invalid Interpretation Code [facility] Work Phone: Ventricular Rate Invalid Interpretation Code [facility] Work Phone: Hemoglobinon 11-05-2017 Hemoglobin mass conc (Bld) 12.5 g/dL Invalid Interpretation Code 12 - 16 g/dL [facility] Interpretation and review of laboratory results Normal Invalid Interpretation Code [facility] Hemoglobin (HGB) 12.5 g/dL Invalid Interpretation Code 12 - 16 g/dL [facility] Interpretation and review of laboratory results Normal Invalid Interpretation Code [facility] Hemoglobin A1con 09-06-2017 Glucose 200 mg/dL High 68 - 126 mg/dL [facility] HbA1c 8.6 % High 4.2 - 6 % [facility] Interpretation and review of laboratory results Abnormal Invalid Interpretation Code [facility] Hepatitis C Antibodyon 09-06 Hepatitis C Ab Negative Invalid Interpretation Code Negative [facility] Interpretation and review of laboratory results Normal Invalid Interpretation Code [facility] Hemoglobin A1con 06-02-2017 Glucose 183 mg/dL High 68 - 126 mg/dL [facility] HbA1c 8.0 % High 4.2 - 6 % [facility] Interpretation and review of laboratory results Abnormal Invalid Interpretation Code [facility] Vital Signs Date Time Vital Sign Value Performing Clinician Facility 07-26-2024 12:52-0400 Body height 160 cm Johnathan Stubbs MD Work Phone: [facility] [employer] 07-26-2024 12:52-0400 Body mass index (BMI) [Ratio] 29.41 kg/m2 Johnathan Stubbs MD Work Phone: [facility] [employer] 07-26-2024 12:52-0400 Body weight 75.3 kg Johnathan Stubbs MD Work Phone: [facility] [employer] 07-26-2024 12:52-0400 Diastolic blood pressure 52 mm[Hg] Johnathan Stubbs MD Work Phone: [facility] [employer] 07-26-2024 12:52-0400 Heart rate 90 /min Johnathan Stubbs MD Work Phone: [facility] [employer] 07-26-2024 12:52-0400 SaO2% (BldA) [Mass fraction] 97 % Johnathan Stubbs MD Work Phone: [facility] [employer] 07-26-2024 12:52-0400 Systolic blood pressure 110 mm[Hg] Johnathan Stubbs MD Work Phone: [facility] [employer] 07-26-2023 13:42-0400 Body height 160 cm Johnathan Stubbs MD Work Phone: [facility] [employer] 07-26-2023 13:42-0400 Body mass index (BMI) [Ratio] 33.13 kg/m2 Johnathan Stubbs MD Work Phone: [facility] [employer] 07-26-2023 13:42-0400 Body weight 84.82 kg Johnathan Stubbs MD Work Phone: [facility] [employer] 07-26-2023 13:42-0400 Diastolic blood pressure 68 mm[Hg] Johnathan Stubbs MD Work Phone: [facility] [employer] 07-26-2023 13:42-0400 Heart rate 82 /min Johnathan Stubbs MD Work Phone: [facility] [employer] 07-26-2023 13:42-0400 SaO2% (BldA) [Mass fraction] 97 % Johnathan Stubbs MD Work Phone: [facility] [employer] 07-26-2023 13:42-0400 Systolic blood pressure 126 mm[Hg] Johnathan Stubbs MD Work Phone: [facility] 11-02-2022 18:02-0500 Body height 160.02 cm [facility] Work Phone: 11-02-2022 18:02-0500 Body mass index (BMI) [Ratio] 34 kg/m2 [facility] Work Phone: 11-02-2022 18:02-0500 Body temperature 97.6 [degF] [facility] Work Phone: 11-02-2022 18:02-0500 Body weight 87.08 kg [facility] Work Phone: 11-02-2022 18:02-0500 Diastolic blood pressure 61 mm[Hg] [facility] Work Phone: 11-02-2022 18:02-0500 Heart rate 92 /min [facility] Work Phone: 11-02-2022 18:02-0500 Respiratory rate 16 /min [facility] Work Phone: 11-02-2022 18:02-0500 SaO2% (BldA) [Mass fraction] 98 % [facility] Work Phone: 11-02-2022 18:02-0500 Systolic blood pressure 142 mm[Hg] [facility] Work Phone: 09-29-2022 08:58-0400 Body mass index (BMI) [Ratio] 29.7 kg/m2 [facility] Work Phone: 09-29-2022 08:58-0400 Body temperature 97.5 [degF] [facility] Work Phone: 09-29-2022 08:58-0400 Diastolic blood pressure 65 mm[Hg] [facility] Work Phone: 09-29-2022 08:58-0400 Heart rate 81 /min [facility] Work Phone: 09-29-2022 08:58-0400 Respiratory rate 18 /min [facility] Work Phone: 09-29-2022 08:58-0400 Systolic blood pressure 125 mm[Hg] [facility] Work Phone: 09-29-2022 00:07-0400 Body weight 81.19 kg [facility] Work Phone: 09-15-2022 10:33-0400 Body mass index (BMI) [Ratio] 29.7 kg/m2 [facility] Work Phone: 09-15-2022 10:33-0400 Body temperature 97.4 [degF] [facility] Work Phone: 09-15-2022 10:33-0400 Diastolic blood pressure 74 mm[Hg] [facility] Work Phone: 09-15-2022 10:33-0400 Heart rate 81 /min [facility] Work Phone: 09-15-2022 10:33-0400 Respiratory rate 18 /min [facility] Work Phone: 09-15-2022 10:33-0400 Systolic blood pressure 124 mm[Hg] [facility] Work Phone: 09-01-2022 09:57-0400 Body height 165.1 cm [facility] Work Phone: 09-01-2022 09:57-0400 Body weight 81.19 kg [facility] Work Phone: 04-29-2021 15:00-0400 Diastolic blood pressure 62 mm[Hg] Adriana Minor MD [facility] Phone: [facility] Work Phone: 04-29-2021 15:00-0400 Heart rate 93 /min Adriana Minor MD Work Phone: [facility] Work Phone: 04-29-2021 15:00-0400 Respiratory rate 17 /min Adriana Minor MD Work Phone: [facility] Work Phone: 04-29-2021 15:00-0400 Systolic blood pressure 144 mm[Hg] Adriana Minor MD [facility] Work Phone: 04-29-2021 14:15-0400 SaO2% [...] 87.09 kg Adriana Minor MD Work Phone: [facility] Work Phone: 04-09-2021 07:22-0400 Body temperature 96.6 [degF] Johnathan Stubbs MD Work Phone: [facility] Work Phone: 04-09-2021 07:22-0400 Diastolic blood pressure 55 mm[Hg] Johnathan Stubbs MD Work Phone: [facility] Work Phone: 04-09-2021 07:22-0400 Heart rate 81 /min Johnathan Stubbs MD Work Phone: [facility] Work Phone: 04-09-2021 07:22-0400 Respiratory rate 18 /min Johnathan Stubbs MD Work Phone: [facility] Work Phone: 04-09-2021 07:22-0400 SaO2% (BldA) [Mass fraction] 98 % Johnathan Stubbs MD Work Phone: [facility] Work Phone: 04-09-2021 07:22-0400 Systolic blood pressure 119 mm[Hg] Johnathan Stubbs MD Work Phone: [facility] Work Phone: 04-09-2021 02:53-0400 Body mass index (BMI) [Ratio] 32.23 kg/m2 Johnathan Stubbs MD Work Phone: [facility] Work Phone: 04-09-2021 02:53-0400 Body weight 87.86 kg Johnathan Stubbs MD Work Phone: [facility] Work Phone: 04-04-2021 18:50-0400 Body height 165.1 cm Johnathan Stubbs MD Work Phone: [facility] Work Phone: 06-10-2018 09:13-0400 BMI (Body Mass Index) 34.11 kg/m2 [facility] 06-10-2018 09:13-0400 Body Temperature 97.7 [degF] [facility] 06-10-2018 09:13-0400 BP Diastolic 79 mm[Hg] Jail[facility] 06-10-2018 09:13-0400 BP Systolic 111 mm[Hg] Jail[facility] 06-10-2018 09:13-0400 Height 165.1 cm Jailene [facility] 06-10-2018 09:13-0400 Pulse (Heart Rate) 76 /min Jail[facility] 06-10-2018 09:13-0400 Pulse Oximetry 93 % Jailene [facility] 06-10-2018 09:13-0400 Weight 92.99 kg Jailene [facility] 03-11-2018 08:50-0400 BMI (Body Mass Index) 35.78 kg/m2 [facility] 03-11-2018 08:50-0400 Body Temperature 97.81 [degF] Jail[facility] 03-11-2018 08:50-0400 BP Diastolic 80 mm[Hg] Jailene [facility] 03-11-2018 08:50-0400 BP Systolic 126 mm[Hg] Jailene [facility] 03-11-2018 08:50-0400 Height 165.1 cm Jailene [facility] 03-11-2018 08:50-0400 Pulse (Heart Rate) 95 /min Jailene Diez [facility] 03-11-2018 08:50-0400 Pulse Oximetry 94 % Jailene Diez [facility] 03-11-2018 08:50-0400 Weight 97.52 kg Jailene Diez [facility] 12-13-2017 08:18-0500 Body Temperature 97 [degF] Mejia Ku [facility] Work Phone: 12-13-2017 08:18-0500 BP Diastolic 69 mm[Hg] Mejia Ku [facility] Work Phone: 12-13-2017 08:18-0500 BP Systolic 144 mm[Hg] Mejia Ku [facility] Work Phone: 12-13-2017 08:18-0500 Pulse (Heart Rate) 81 /min Mejia Ku [facility] Work Phone: 12-13-2017 08:18-0500 Pulse Oximetry 95 % Mejia Ku [facility] Work Phone: 12-13-2017 08:18-0500 Respiratory Rate 18 /min Mejia Ku [facility] Work Phone: 12-07-2017 10:08-0500 BMI (Body Mass Index) 35.11 kg/m2 Mejia Ku [facility] Work Phone: 12-07-2017 10:08-0500 Height 165.1 cm Mejia Ku [facility] Work Phone: 12-07-2017 10:08-0500 Weight 95.71 kg Mejia Ku [facility] Work Phone: 12-06-2017 08:45-0500 BMI (Body Mass Index) 35.11 kg/m2 Jailene Diez [facility] Work Phone: 12-06-2017 08:45-0500 BP Diastolic 61 mm[Hg] Jailene Dize [facility] Work Phone: 12-06-2017 08:45-0500 BP Systolic 118 mm[Hg] Jailene Diez [facility] Work Phone: 12-06-2017 08:45-0500 Height 165.1 cm Jailene Diez [facility] Work Phone: 12-06-2017 08:45-0500 Pulse (Heart Rate) 82 /min [facility] Work Phone: 12-06-2017 08:45-0500 Pulse Oximetry 96 % [facility] Work Phone: 12-06-2017 08:45-0500 Weight 95.71 kg [facility] Work Phone: 11-15-2017 12:14-0500 Body Temperature 97.59 [degF] [facility]ia [facility] Work Phone: 11-15-2017 12:14-0500 BP Diastolic 71 mm[Hg] [facility] Work Phone: 11-15-2017 12:14-0500 BP Systolic 145 mm[Hg] Mejia Ku [facility] Work Phone: 11-15-2017 12:14-0500 Pulse Oximetry 97 % [facility]jia [facility] Work Phone: 11-15-2017 12:14-0500 Respiratory Rate 14 /min Mejia Ku [facility] Work Phone: 11-15-2017 11:16-0500 Pulse (Heart Rate) 78 /min Mejia Ku [facility] Work Phone: 11-09-2017 10:08-0500 BMI (Body Mass Index) 35.28 kg/m2 Mejia Ku [facility] Work Phone: 11-09-2017 10:08-0500 Height 165.1 cm Mejia Ku [facility] Work Phone: 11-09-2017 10:08-0500 Weight 96.16 kg [facility] Work Phone: 11-05-2017 10:00-0500 BMI (Body Mass Index) 35.28 kg/m2 [facility] Work Phone: 11-05-2017 10:00-0500 Body Temperature 98.29 [degF] Jailene Diez [facility] Work Phone: 11-05-2017 10:00-0500 BP Diastolic 67 mm[Hg] [facility] Work Phone: 11-05-2017 10:00-0500 BP Systolic 113 mm[Hg] Jailene Diez [facility] Work Phone: 11-05-2017 10:00-0500 Height 165.1 cm Jailene Diez [facility] Work Phone: 11-05-2017 10:00-0500 Pulse (Heart Rate) 91 /min Jailene Diez [facility] Work Phone: 11-05-2017 10:00-0500 Pulse Oximetry 98 % Jailene Diez [facility] Work Phone: 11-05-2017 10:00-0500 Weight 96.16 kg Jailene Diez [facility] Work Phone: 07-01-2017 15:18-0400 BMI (Body Mass Index) 36.78 kg/m2 Jailene Diez [facility] Work Phone: 07-01-2017 15:18-0400 Body Temperature 98.2 [degF] Jailene Diez [facility] Work Phone: 07-01-2017 15:18-0400 BP Diastolic 82 mm[Hg] Jailene Diez [facility] Work Phone: 07-01-2017 15:18-0400 BP Systolic 140 mm[Hg] Jailene Diez [facility] Work Phone: 07-01-2017 15:18-0400 Height 165.1 cm Jailene Diez [facility] Work Phone: 07-01-2017 15:18-0400 Pulse (Heart Rate) 93 /min Jailene Diez [facility] Work Phone: 07-01-2017 15:18-0400 Pulse Oximetry 95 % Jailene Diez [facility] Work Phone: 07-01-2017 15:18-0400 Weight 100.25 kg Jailene Diez [facility] Work Phone: Encounters Encounter Date Encounter Type Care Provider Facility Start: 07-04-2025 ambulatory Gallito Jacobson Facilit y:[facility] Start: 06-29-2025 End: 07-02-2025 [facility] Start: 06-27-2025 End: 06-27-2025 Refill Thalia Aiken APRN - PHARMACY MANAGER Work Phone: [facility] Comment on above: Chronic systolic con gestive heart failure (HCC) Start: 06-24-2025 End: 06-24-2025 Telephone encounter John Esteban [facility] Start: 05-15-2025 End: 05-15-[address] Gallito Jacobson MD Work Phone: [facility] Work Phone: Start: 05-15-2025 End: 05-15-[address] Gallito Jacobson MD -Radiology [place] Work Phone: Start: 05-15-2025 End: 05-15-2025 ambulatory Gallito Jacobson Facility:[facility] Start: 03-08-2025 End: 03-08-2025 Refill Johnathan Stubbs MD Work Phone: [facility] Comment on above: Coronary artery dise ase 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 Start: 12-07-2024 End: 12-08-2024 Refill Johnathan Stubbs MD Work Phone: [facility] Comment on above: Coronary artery dise ase 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 Start: 09-19-2024 End: 09-19-2024 Refill Johnathan Stubbs MD Work Phone: [facility] Comment on above: Type 2 diabetes kirstie itus with hyperosmolarity without coma, without long-term current use of insulin ([facility]/HCC) (HCC) Start: 08-20-2024 End: 08-21-2024 Refill Johnathan Stubbs MD Work Phone: [facility] - [place] Comment on above: Chronic systolic con gestive heart failure (HCC) Start: 07-26-2024 End: 07-26-2024 Office outpatient visit 25 minutes Johnathan Stubbs MD Work Phone: [facility] Comment on above: Primary hypertension ; Type 2 diabetes mellitus with hyperosmolarity without coma, without long-term current use of insulin (CMS/HCC) ([facility]); 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; Ischemic cardiomyopathy; NSTEMI (non-ST elevated myocardial infarction) ([facility]) Start: 07-26-2024 End: 07-26-2024 ambulatory JOHNATHAN Boracci [facility] Start: 07-24-2024 End: 07-24-2024 Refill Johnathan Stubbs MD Work Phone: [facility] Start: 07-19-2024 End: 07-19-2024 ambulatory JOHNATHAN Boracci Facility:[facility] Start: 07-11-2024 End: 07-11-2024 Telephone encounter John Esteban [facility] Start: 07-05-2024 End: 07-05-2024 ambulatory Cherie Deluca Facility:[facility] Start: 04-05-2024 Refill Johnathan isaacs MD Work Phone: [facility] Comment on above: Coronary artery dise ase 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 Start: 01-08-2024 End: 01-08-2024 ambulatory CHERIE DELUCA Facility:[facility] Start: 12-20-2023 End: 12-20-[address] Cherie Deluca Work Phone: [facility] Work Phone: Start: 12-20-2023 End: 12-20-[address] Cherie Deluca Work Phone: [facility] Start: 10-18-2023 Refill Johnathan isaacs MD Work Phone: [facility] Comment on above: Coronary artery dise ase 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 Start: 09-23-2023 Refill Danielle Wiley [facility] Start: 09-01-2023 Non-patient / Non-visit Dr. Trudy Deluca Work Phone: [facility] Start: 09-01-2023 End: 09-01-[address] Cherie Deluca Work Phone: [facility] Work Phone: Start: 08-03-2023 End: 08-03-2023 ambulatory CHERIE DELUCA Facility:[facility] Start: 07-26-2023 End: 07-26-2023 Office outpatient visit 25 minutes Johnathan Stubbs MD Work Phone: [facility] Comment on above: Primary hypertension (Primary Dx); 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; NSTEMI (non-ST elevated myocardial infarction) (CMS/HCC) (HCC); Ischemic cardiomyopathy Start: 07-08-2023 Refill Johnathan isaacs MD Work Phone: [facility] Comment on above: Coronary artery dise ase 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 Start: 04-08-2023 Refill Johnathan isaacs MD Work Phone: [facility] Comment on above: Chronic systolic con gestive heart failure (CMS/HCC) (HCC) Start: 01-06-2023 Refill Johnathan isaacs MD Work Phone: [facility] Comment on above: Coronary artery dise ase 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 Start: 11-02-2022 End: 11-02-2022 Emergency department patient visit [facility]-Emergency Department Start: 09-29-2022 End: 10-28-[address] [facility] Work Phone: Start: 09-29-2022 End: 10-28-2022 [facility] [place] Start: 09-21-2022 Transcribe Orders Johnathan Stubbs MD Work Phone: [facility] Central Scheduling Comment on above: Atherosclerotic hear t disease of duck[place] coronary artery without angina pectoris (Primary Dx) Start: 09-16-2022 End: 09-16-[address] [facility] Work Phone: Start: 09-16-2022 End: 09-16-2022 Patient encounter procedure [facility]-Laboratory, Fili Laughlin Start: 09-15-2022 End: 09-28-[address] [facility] Work Phone: Start: 09-15-2022 End: 09-28-2022 [facility] Start: 09-15-2022 Registered Recurring [facility] Start: 07-09-2022 Documentation procedure Mammog vero Coordinator [facility] Start: 07-09-2022 Letter encounter Mammography Coordinator [facility] Department Start: 07-09-2022 End: 07-09-2022 Subsequent hospital visit by physician Screen Mammo [facility] Mamm[facility] Comment on above: Screening mammogram, encounter for [Z12.31] Start: 04-29-2021 End: 04-29-2021 Subsequent hospital visit by physician Adriana Minor MD Work Phone: [facility] Patient Support Representative Comment on above: Coronary artery dise ase 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 (Primary Dx) Start: 04-04-2021 End: 04-09-2021 Evaluation and management of inpatient Johnathan Stubbs MD Work Phone: [facility] 1C Capacity Management Comment on above: Post PTCA (Primary D x); NSTEMI (non-ST elevated myocardial infarction) ([facility]) Start: 01-09-2021 End: 01-09-2021 Orders Only Adrianna Cheung Work Phone: [facility] Start: 06-10-2018 End: 06-10-2018 Patient encounter JAILENE DIEZ [facility] Start: 06-10-2018 End: 06-10-2018 Office outpatient visit 15 minutes Jaliene Diez Work Phone: [facility] Start: 06-09-2018 End: 06-09-2018 Patient encounter JAILENE BOB DIEZ [facility] Start: 03-11-2018 End: 03-11-2018 Patient encounter JAILENE DIEZ [facility] Start: 03-11-2018 Office/outpatient vi sit, est, level 3 Jailene Diez Work Phone: [facility] Start: 03-09-2018 End: 03-09-2018 Patient encounter Jailene Diez Work Phone: [facility] Outpatient Lab Draw Site Start: 12-28-2017 End: 12-28-2017 Patient encounter MEJIA KU [facility] Start: 12-28-2017 Postop follow-up visit Mejia Ku Work Phone: [facility] Ophthalmology Start: 12-14-2017 End: 12-14-2017 Patient encounter MEJIA KU [facility] Start: 12-14-2017 Postop follow-up visit Mejia Ku Work Phone: [facility]hthal[facility] Start: 12-13-2017 End: 12-13-2017 Ambulatory J Carlie [facility] Ophthalmology Start: 12-06-2017 End: 12-06-2017 Patient encounter Jailene Diez Work Phone: [facility] Outpatient Lab Draw Site Start: 12-06-2017 Office/outpatient vi sit, est, level 4 Jailene Diez Work Phone: [facility] Start: 12-01-2017 End: 12-01-2017 Patient encounter [facility]U [facility] [facility] Start: 12-01-2017 Postop follow-up visit Mejia Ku Work Phone: [facility] Start: 11-16-2017 Patient encounter MEJIA KU [facility] Start: 11-16-2017 Postop follow-up visit Mejia Ku Work Phone: [facility] Start: 11-15-2017 End: 11-15-2017 Ambulatory J Carlie Ku [facility] Start: 11-09-2017 End: 11-09-2017 Patient encounter MEJIA KU [facility] Start: 11-09-2017 Patient encounter Mejia Ku Work Phone: [facility] Start: 11-05-2017 End: 11-05-2017 Patient encounter Jailene Diez Work Phone: [facility] Outpatient Lab Draw Site Start: 11-05-2017 Office outpatient vi sit 25 minutes Jailene Diez Work Phone: [facility] Primary [facility] Start: 10-06-2017 End: 10-06-2017 Patient encounter MEJIA KU [facility] Start: 10-06-2017 Office outpatient vi sit 25 minutes Mejia Ku Work Phone: [facility] Start: 09-08-2017 Patient encounter JAILENE DIEZ O [facility] Start: 09-06-2017 End: 09-10-2017 Patient encounter JAILENE DIEZ [facility] Start: 09-06-2017 End: 09-06-2017 Patient encounter Jailene Diez Work Phone: [facility] Outpatient Lab Draw Site Start: 07-06-2017 End: 07-06-2017 Patient encounter MEJIA KU [facility] Start: 07-06-2017 Office/outpatient vi sit, est, level 2 Mejia Ku Work Phone: [facility] Start: 07-01-2017 Patient encounter JAILENE Hines [facility] Start: 07-01-2017 Office/outpatient vi sit, est, level 3 Jailene Diez Work Phone: [facility] Primary [facility] Start: 06-02-2017 End: 06-02-2017 Patient encounter Jailene Diez Work Phone: [facility] Outpatient Lab Draw Site Start: 12-11-2016 End: 12-12-2016 Ambulatory PROVIDER NOT IN SYSTEM [facility] Procedures Date Procedure Procedure Detail Performing Clinician [...] mntr dev cleared fda spec home use Jonhathan Stubbs MD Work Phone: Start: 04-08-2021 End: 04-08-2021 Gluc bld gluc mntr dev cleared fda spec home use Johnathan Stubbs MD Work Phone: Start: 04-08-2021 Ecg routine ecg w/least 12 lds w/i&r Emily Greenwood SENIOR ELECTRICAL ESTIMATOR Sara PHARMACY MANAGER Work Phone: Start: 04-08-2021 CARDIAC CATH [...] Phone: Start: 04-04-2021 ADD ON LAB TEST eJrad Sylvester MD Work Phone: Start: 04-04-2021 Ecg routine ecg w/least 12 lds w/i&r Marcus Nuñez MD Work Phone: Start: 04-04-2021 End: 04-05-2021 CK WITH REFLEX CK-MB Marcus Nuñez MD Work Phone: Start: 04-04-2021 End: 04-05-2021 Creatine kinase mb fraction only Marcus Nuñez MD Work Phone: Start: 04-04-2021 Lipid panel Marcus Nuñez MD Work Phone: Start: 04-04-2021 Radiologic [...] - Td) DTaP/Tdap/Td vaccine (2 - Td) [facility] Work Phone: Start: 02-10-2029 DTaP/Tdap/Td Vaccines (2 - Td or Tdap) DTaP/Tdap/Td Vaccines (2 - Td or Tdap) [facility] [employer] Start: 07-30-2025 Influenza vaccination [facility] [employer] Start: 07-25-2025 End: 07-25-2025 Patient encounter procedure [facility] [employer] [facility] Start: 07-19-2025 Creatinine measurement Creatinine Level [facility] [employer] Start: 07-19-2025 Diabetes: Estimated Glomerular Filtration Rate for Kidney Health Diabetes: Estimated Glomerular Filtration Rate for Kidney Health [facility] [employer] Start: 07-19-2025 Potassium measurement Potassium Level [facility] [employer] Start: 07-09-2025 DIABETES SCREEN DIABETES SCREEN [facility] Start: 11-29-2024 Medicare Advantage Annual Wellness Visit Medicare Advantage Annual Wellness Visit [facility] Start: 2024 RSV Immunization for Adults (1 - 1-dose 75+ series) RSV Immunization for Adults (1 - 1-dose 75+ series) [facility] [employer] Start: 07-30-2024 COVID-19 Vaccine ( season) COVID-19 Vaccine ( season) [facility] Start: 07-30-2024 COVID-19 Vaccine ( season) COVID-19 Vaccine ( season) [facility] Start: 07-30-2024 Influenza vaccination [facility] [employer] Start: 07-26-2024 End: 07-26-2024 Patient encounter procedure [facility] [employer] [facility] Start: 11-29-2023 Medicare Advantage Annual Wellness Visit Medicare Advantage Annual Wellness Visit [facility] Start: 10-27-2023 Echocardiography Echocardiogram [facility] [employer] Start: 08-02-2023 End: 07-26-2024 Basic metabolic 1998 panel - Serum or Plasma Basic metabolic panel Lab Routine Primary hypertension 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 NSTEMI (non-ST elevated myocardial infarction) (CMS/HCC) (HCC) Ischemic cardiomyopathy Expected: 08/02/2023 (Approximate), Expires: 07/26/2024 [facility] [employer] Work Phone: Comment on above: Expected: 08/02/2023 (Approximate), Expi res: 07/26/2024 Start: 07-30-2023 COVID-19 Vaccine () COVID-19 Vaccine () [facility] [employer] Start: 07-30-2023 Influenza vaccination [facility] Start: 07-26-2023 End: 07-26-2023 Patient encounter procedure 07/26/2023 1:45 PM EDT Office Visit [facility] [employer] [facility] Cardiology [address] [place] [id number] Johnathan Stubbs MD [address] [id number] [facility] Card[facility] Start: 07-09-2023 Mammography MAMMOGRAM [facility] Start: 07-30-2022 Influenza vaccination [facility] Start: 05-08-2022 Creatinine measurement Creatinine Level [facility] [employer] Start: 05-08-2022 Potassium measurement Potassium Level [facility] [employer] Start: 04-18-2022 Creatinine measurement Creatinine monitoring [facility] Work Phone: Start: 04-18-2022 Potassium monitoring Potassium monitoring [employer] Work Phone: Start: 04-09-2022 Creatinine measurement Creatinine monitoring [facility] Work Phone: Start: 04-09-2022 Diabetes: Estimated Glomerular Filtration Rate for Kidney Health Diabetes: Estimated Glomerular Filtration Rate for Kidney Health [facility] [employer] Start: 04-09-2022 Potassium monitoring Potassium monitoring [facility] Work Phone: Start: 04-04-2022 Hemoglobin A1c measurement [facility] Start: 04-04-2022 Lipid panel [facility] Start: 11-29-2021 ADVANCE DIRECTIVE DISCUSSION ADVANCE DIRECTIVE DISCUSSION [facility] Start: 07-30-2021 Influenza vaccination Flu vaccine (Season Ended) [facility] Work Phone: Start: 07-05-2021 Hemoglobin A1c measurement Diabetes: Hemoglobin A1C [facility] Start: 06-09-2021 End: 06-09-2021 Patient encounter procedure 06/09/2021 Office Visit Cardiology Johnathan Stubbs MD [address] [place] [address] [phone] [facility] Start: 05-08-2021 End: 05-08-2021 Evaluation and management of inpatient 05/08/2021 Office Visit Cardiology Johnathan Stubbs MD [address] [place] [address] [phone] [facility] Start: 04-15-2021 End: 04-15-2021 Evaluation and management of inpatient 04/15/2021 Office Visit Cardiology Johnathan Stubbs MD [address] [place] [address] [phone] [facility] Start: 04-07-2021 Annual Wellness Visit (AWV) Annual Wellness Visit (AWV) [facility] Work Phone: Start: 07-30-2020 Influenza vaccination given Sequential Influenza Vaccine (#1) [facility] Start: 06-10-2019 Fall risk assessment Steadi Fall Risk Assessment [facility] Start: 03-09-2019 Fasting lipid profile Lipid Panel [facility] Start: 03-09-2019 Lipid panel LIPID PANEL [facility] Start: 03-09-2019 Urine, microalbumin URINE MICROALBUMIN [facility] Start: 12-10-2018 Hemoglobin A1c/Hemoglobin.total mass fraction (Bld) [facility] Start: 10-06-2018 Ophthalmic examination and evaluation OPHTHALMOLOGY EXAM [facility] Work Phone: Start: 09-12-2018 End: 09-12-2018 Ambulatory 09/12/2018 Office Visit Primary Care Jailene Diez MD [address] [place] [address] [phone] [facility] Start: 09-08-2018 Diabetic foot examination (regime/therapy) FOOT EXAM [facility] Work Phone: Start: 09-08-2018 HbA1c HEMOGLOBIN A1C [facility] Start: 08-01-2018 Influenza vaccination [facility] Start: 07-20-2018 End: 07-20-2018 Ambulatory 07/20/2018 Office Visit Ophthalmology Mejia Ku MD [address] [place] [address] [phone] [facility] Start: 07-06-2018 Ambulatory 07/06/2018 Office Visit Ophthalmology Mejia Ku MD [address] [place] [address] [phone] [facility] Start: 06-10-2018 End: 03-12-2019 HbA1c Hemoglobin A1c Routine Type 2 diabetes mellitus without complication, with long-term current use of insulin (HCC) Expected: 06/10/2018, Expires: 03/12/2019 [facility] Start: 06-10-2018 End: 06-10-2018 Ambulatory 06/10/2018 Office Visit Primary Care Jailene Diez MD [address] [place] [address] [phone] [facility] Start: 06-05-2018 HbA1c HEMOGLOBIN A1C [facility] Work Phone: Start: 06-03-2018 Fall risk assessment Steadi Fall Risk Assessment [facility] Work Phone: Start: 06-03-2018 Steadi Fall Risk Assessment Steadi Fall Risk Assessment [facility] Work Phone: Start: 03-15-2018 Lipid panel LIPID PANEL [facility] Work Phone: Start: 03-15-2018 URINE MICROALBUMIN URINE MICROALBUMIN [facility] Work Phone: Start: 03-15-2018 Urine, microalbumin URINE MICROALBUMIN [facility] Work Phone: Start: 03-11-2018 Ambulatory 03/11/2018 Office Visit Primary Care Jailene Diez MD [address] [place] [address] [facility] Start: 03-07-2018 HbA1c HEMOGLOBIN A1C [facility] Work Phone: Start: 12-28-2017 Ambulatory 12/28/2017 Office Visit Ophthalmology Mejia Ku MD [address] [place] [address] [phone] [facility] Start: 12-14-2017 Ambulatory 12/14/2017 Office Visit Ophthalmology Mejia Ku MD [address] [place] [address] [phone] [facility] Start: 12-13-2017 End: 12-13-2017 Ambulatory [facility] Start: 12-11-2017 Mammography MAMMOGRAM [facility] Work Phone: Start: 12-11-2017 Screening for malignant neoplasm of breast Mammogram [facility] Start: 12-11-2017 Screening mammography MAMMOGRAM [facility] Work Phone: Start: 12-06-2017 Ambulatory 12/06/2017 Office Visit Primary Care Jailene Diez MD [address] [place] [address] [phone] [facility] Start: 12-03-2017 HEMOGLOBIN A1C HEMOGLOBIN A1C [facility] Work Phone: Start: 12-01-2017 Ambulatory 12/01/2017 Office Visit Ophthalmology Mejia uK MD [address] [place] [address] [phone] [facility] Start: 11-16-2017 Ambulatory 11/16/2017 Office Visit Ophthalmology Mejia Ku MD [address] [place] [address] [phone] [facility] Start: 11-15-2017 Ambulatory [facility] Start: 11-09-2017 Ambulatory 11/09/2017 Office Visit Ophthalmology Mejia Ku MD [address] [place] [address] [phone] [facility] Start: 11-08-2017 Ambulatory 11/08/2017 Office Visit Ophthalmology Mejia Ku MD [address] [place] [address] [phone] [facility] Start: 11-05-2017 Ambulatory 11/05/2017 Office Visit Primary Care Jailene Diez MD [address] [place] [address] [phone] [facility] Start: 11-02-2017 Colonoscopy COLONOSCOPY [facility] Work Phone: Start: 11-02-2017 History and physical examination, annual for health maintenance Wellness Visit [facility] Start: 11-02-2017 Pneumococcal vaccination PNEUMOCOCCAL VACCINE AGE 65+ (2 of 2 - PPSV23) [facility] Work Phone: Start: 11-02-2017 PNEUMOCOCCAL VACCINE AGE 65+ (2 of 2 - PPSV23) PNEUMOCOCCAL VACCINE AGE 65+ (2 of 2 - PPSV23) [facility] Work Phone: Start: 11-02-2017 Pneumococcal Vaccine: 65+ Years (2 - PPSV23 if available, else PCV20) Pneumococcal Vaccine: 65+ Years (2 - PPSV23 if available, else PCV20) [facility] Start: 11-02-2017 Screening colonoscopy COLONOSCOPY [facility] Work Phone: Start: 11-02-2017 Screening for malignant neoplasm of colon [facility] Start: 10-06-2017 Ambulatory 10/06/2017 Office Visit Ophthalmology Mejia Ku MD [address] [place] [address] [phone] [facility] Start: 09-29-2017 Ophthalmic examination and evaluation OPHTHALMOLOGY EXAM [facility] Work Phone: Start: 09-29-2017 OPHTHALMOLOGY EXAM OPHTHALMOLOGY EXAM [facility] Work Phone: Start: 09-08-2017 Ambulatory 09/08/2017 Office Visit Primary Care Jailene Diez MD [address] [place] [address] [phone] [facility] Start: 08-21-2017 Glaucoma screening Diabetes: Retinopathy Screening [facility] Start: 08-19-2017 FOOT EXAM FOOT EXAM [facility] Work Phone: Start: 07-30-2017 Influenza vaccination SEQUENTIAL INFLUENZA VACCINE (#1) [facility] Work Phone: Start: 07-30-2017 SEQUENTIAL INFLUENZA VACCINE (#1) SEQUENTIAL INFLUENZA VACCINE (#1) [facility] Work Phone: Start: 07-06-2017 Ambulatory 07/06/2017 Office Visit Ophthalmology Mejia Ku MD [address] [place] [address] [phone] [facility] Start: 12-28-2016 Pneumococcal Vaccine: 50+ Years (2 of 2 - PPSV23) Pneumococcal Vaccine: 50+ Years (2 of 2 - PPSV23) [facility] Start: 12-28-2016 Pneumococcal Vaccine: 65+ Years (2 - PPSV23 if available, else PCV20) Pneumococcal Vaccine: 65+ Years (2 - PPSV23 if available, else PCV20) [facility] Start: 12-28-2016 Pneumococcal Vaccine: 65+ Years (2 - PPSV23 or PCV20) Pneumococcal Vaccine: 65+ Years (2 - PPSV23 or PCV20) [facility] Start: 12-28-2016 Pneumococcal Vaccine: 65+ Years (2 of 2 - PPSV23 or PCV20) Pneumococcal Vaccine: 65+ Years (2 of 2 - PPSV23 or PCV20) [facility] Start: 08-21-2016 Glaucoma screening Diabetes: Retinopathy Screening [facility] Start: 2014 BONE DENSITY BONE DENSITY [facility] Start: 2014 Pneumococcal 65+ years Vaccine (1 of 1 - PPSV23) Pneumococcal 65+ years Vaccine (1 of 1 - PPSV23) [facility] Work Phone: Start: 2014 Pneumococcal 65+ years Vaccine (2 of 2 - PPSV23) Pneumococcal 65+ years Vaccine (2 of 2 - PPSV23) [facility] Work Phone: Start: 2014 PNEUMOCOCCAL: 65+ (1 - PCV) PNEUMOCOCCAL: 65+ (1 - PCV) [facility] Start: 2009 Hepatitis B Vaccines (1 of 3 - Risk 3-dose series) Hepatitis B Vaccines (1 of 3 - Risk 3-dose series) [facility] Start: 2009 RSV Immunization aged 60 or older (1 - 1-dose 60+ series) RSV Immunization aged 60 or older (1 - 1-dose 60+ series) [facility] Start: 2009 RSV Immunization for Adults (1 - Risk 60-74 years 1-dose series) RSV Immunization for Adults (1 - Risk 60-74 years 1-dose series) [facility] Start: 2009 Zoster vacc, sc ZOSTER VACCINE [facility] Work Phone: Start: 2004 Screening for osteoporosis DEXA (modify frequency per FRAX score) [facility] Work Phone: Start: 1999 Administration of herpes zoster vaccine Zoster Vaccines (1 of 2) [facility] Start: 1999 Screening for malignant neoplasm of breast Breast cancer screen [facility] Work Phone: Start: 1999 Screening for malignant neoplasm of colon [facility] Start: 1999 Shingles Vaccine (1 of 2) Shingles Vaccine (1 of 2) [facility] Work Phone: Start: 1999 SHINGRIX VACCINE (1 of 2) SHINGRIX VACCINE (1 of 2) [facility] Start: 1999 Zoster Vaccines (1 of 2) Zoster Vaccines (1 of 2) [facility] Start: 1994 COLOGUARD (FIT-DNA) COLOGUARD (FIT-DNA) [facility] Start: 1994 Colonoscopy COLONOSCOPY [facility] Start: 1994 COLORECTAL CANCER SCREENING COLORECTAL CANCER SCREENING [facility] Start: [address] COLONOGRAPHY [facility] Start: 1994 FECAL OCCULT BLOOD FECAL OCCULT BLOOD [facility] Start: 1994 LIPID SCREEN LIPID SCREEN [facility] Start: 1994 SIGMOIDOSCOPY SIGMOIDOSCOPY [facility] Start: 1989 Screening for malignant neoplasm of breast Mammogram [facility] Start: 1968 Urine microalbumin profile DTAP,TDAP,TD (1 - Tdap) [facility] Start: 1968 Urine screening for protein Diabetes: Urine Protein Screening [facility] Start: 1967 Diabetes: Urine Albumin-Creatinine Ratio for Kidney Health Diabetes: Urine Albumin-Creatinine Ratio for Kidney Health [facility] Start: 1967 Diabetic microalbuminuria test Diabetic microalbuminuria test [facility] Work Phone: Start: 1967 HEPATITIS C SCREENING HEPATITIS C SCREENING [facility] Start: 1967 Hepatitis C screening Hepatitis C Screening [facility] Start: 1965 COVID-19 Vaccine (1 of 2) COVID-19 Vaccine (1 of 2) [facility] Start: 1961 Adolescent depression screening assessment [facility] Start: 1961 COVID-19 Vaccine (1) COVID-19 Vaccine (1) [facility] Work Phone: Start: 1959 Diabetic foot examination [facility] Start: 1959 Diabetic retinal exam Diabetic retinal exam [facility] Work Phone: Start: 1959 Preventive dental service Diabetes: Dental Exam [facility] Start: 05-22-1950 COVID-19 VACCINE (#1) COVID-19 VACCINE (#1) [facility] Start: 1949 Fall risk assessment Falls Risk Assessment [facility] Start: 1949 Hepatitis B Vaccines (1 of 3 - 3-dose series) Hepatitis B Vaccines (1 of 3 - 3-dose series) [facility] Start: 1949 HEPATITIS C SCREENING HEPATITIS C SCREENING [facility] Work Phone: Start: 1949 Hepatitis C screening Hepatitis C screen [facility] Work Phone: Start: 1949 Medicare Advantage Annual Wellness Visit (AWV) Medicare Advantage Annual Wellness Visit (AWV) [facility] Start: 1949 Screening for malignant neoplasm of colon [facility] Start: 1949 Screening for osteoporosis Bone Density Scan [facility] Start: 1949 TETANUS EVERY 10 YR TETANUS EVERY 10 YR [facility] Work Phone: Start: 1949 Tetanus vaccination [facility] [employer] Phone: aPTT in Blood by Coagulation assay APTT Lab Timed Now Then Every 6hr until discontinued starting 04/04/2021, 8 completed [employer] Work Phone: Comment on above: Now Then Every 6hr until discontinued st arting 04/04/2021, 8 completed Axial Eye Length - O S - Left Eye Axial Eye Length - OS - Left Eye Routine Combined forms of age-related cataract of left eye Ordered: 12/01/2017 [employer] Work Phone: End: 12-07-2018 Basic metabolic panel [AGGREGATE] Basic Metabolic Panel Routine Preop examination Combined forms of age-related cataract of left eye Essential hypertension 1 Occurrences starting 12/06/2017 until 12/07/2018 [employer] Work Phone: Basic metabolic pane l [AGGREGATE] [employer] Work Phone: Comment on above: Daily until discontinued starting 2020, 4 completed End: 04-29-2021 Catheterization and angiography procedure details panel Diagnostic Cardiac Patient Support Representative Procedure Cardiac Cath Routine One Time for 1 Occurrences starting 04/29/2021 until 04/29/2021 [employer] Phone: Comment on above: One Time for 1 Occurrences starting 11/2020 until 04/29/2021 Catheterization and angiography procedure details panel Diagnostic Cardiac Patient Support Representative Procedure Cardiac Cath Routine 04/29/2021 9:53 AM EDT [employer] Phone: End: 04-30-2021 CBC panel - Blood by Automated count CBC Lab Routine Tomorrow AM for 1 Occurrences starting 04/30/2021 until 04/30/2021 [employer] Phone: Comment on above: Tomorrow AM for [...] cancer 1 Occurrences starting 03/11/2018 until 03/11/2019 [facility] Glucose [Mass/volume ] in Serum [...] discontinued starting 2020, 5 completed Oxygen therapy [[facility] Data Set] [employer] Work Phone: Comment on above: Daily until discontinued starting 2020 Daily until disconti nued starting 04/08/2021 Daily until disconti nued starting 04/29/2021 Patient Education Bruises (Contu sions) ED Concussion [facility] Work Phone: Patient referral [facility] Work Phone: Phosphate [Mass/volu me] in Serum or Plasma Phosphorus Lab Routine Daily until discontinued starting 04/05/2021, 5 completed [employer] Work Phone: Comment on above: Daily until discontinued starting 2020, 5 completed End: 04-04-2021 Respiratory care evaluation only Respiratory care evaluation only Respiratory Care Routine One Time for 1 Occurrences starting 04/04/2021 until 04/04/2021 [employer] Work Phone: Comment on above: One Time for 1 Occurrences starting 05/2021 until 04/04/2021 Troponin I.cardiac [Mass/volume] in Serum or Plasma [employer] Work Phone: Immunizations Immunization Date Immunization Notes Care Provider Donal pierre 02-10-2019 tetanus toxoid, redu galo diphtheria toxoid, and acellular pertussis vaccine, adsorbed Johnathan Stubbs MD Work Phone: [facility] [employer] Work Phone: 11-02-2016 pneumococcal conjuga te vaccine, 13 valent; Translations: [PNEUMOCOCCAL CONJUGATE 13-VALENT (PREVNAR 13)] Jailene Diez [facility] Work Phone: Payers Date Payer Category Payer Self-pay [id number] 2022 Medicare HMO [employer] [id number] 2021 Medicare [id number] 2021 Medicare [id number] 2014 Medicare [id number] 2014 Medicare HUMANA MANAGED [facility] GOLD PLUS [facility] [id number] 2014-Present [id number] Medicare xxxxxxxxx [id number] Unknown xxxxxxxxx [id number] Unknown [id number] Unknown [id number] Unknown [id number] Unknown [id number] Unknown [id number] Social History Date Type Detail Facility Start: 03-11-2017 End: 04-08-2021 Tobacco smoking status NHIS Current every day smoker [facility] Ellie Phone: End: 04-03-2021 History of tobacco use Cigarette Smoker [facility] Work Phone: Start: 03-11-2017 End: 07-26-2024 Cigarettes smoked current (pack per day) - Reported [facility] Work Phone: Start: 1950 Sex Assigned At Not on file [facility] Work Phone: Start: 06-10-2018 End: 07-26-2024 Tobacco use and exposure Never used [facility] Start: 06-10-2018 Alcohol intake 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 [facility] Start: 06-29-2022 End: 07-26-2023 Exposure to SARS-CoV-2 (event) Not sure [facility] Start: 04-15-2021 End: 07-26-2024 Tobacco smoking status MSIS Former smoker [facility] End: 04-03-2021 History of tobacco use Current smoker [facility] Start: 1950 Sex Assigned At Female S [facility] Work Phone: Start: 06-10-2021 End: 11-02-2022 Tobacco smoking status MSIS Tobacco smoking consumption unknown [facility] Start: 04-04-2021 Cigarettes D[facility] Start: 10-27-2022 End: 07-26-2024 Alcohol intake Ex-drinker (finding) [facility] Start: 10-27-2022 End: 07-26-2024 Tobacco use panel [facility] Start: 09-18-2022 Gender identity Identifies as female gender (finding) [facility] Start: 06-29-2022 Sex Female (finding) [facility] Medical Equipment Procedure Code Equipment Code Equipment Origin al Text Equipment Identifier Dates Implant Cataract Softechd+16.25d - [id number] Start: 11-15-2017 Implant Cataract Softechd+16.25d - [id number] Start: 11-15-2017 Implant Cataract Softechd+17.75d - [id number] Start: 12-13-2017 Implant Cataract Softechd+16.25d - [id number] Start: 11-15-2017 Implant Cataract Softechd+17.75d - [id number] Start: 12-13-2017 Implant Cataract Softechd+16.25d - [id number] Start: 11-15-2017 Implant Cataract Softechd+17.75d - [id number] Start: 12-13-2017 Implant Cataract Softechd+16.25d - [id number] Start: 11-15-2017 Implant Cataract Softechd+17.75d - [id number] Start: 12-13-2017 Implant Cataract Softechd+16.25d - [id number] Start: 11-15-2017 Implant Cataract Softechd+17.75d - [id number] Start: 12-13-2017 Implant Cataract Softechd+16.25d - [id number] Start: 11-15-2017 Implant Cataract Softechd+17.75d - [id number] Start: 12-13-2017 Implant Cataract Softechd+16.25d - [id number] Start: 11-15-2017 Implant Cataract Softechd+16.25d - [id number] Start: 11-15-2017 Implant Cataract Softechd+16.25d - [id number] Start: 11-15-2017 Implant Cataract Softechd+16.25d - [id number] Start: 11-15-2017 Implant Cataract Softechd+16.25d - [id number] Start: 11-15-2017 Implant Cataract Softechd+16.25d - [id number] Start: 11-15-2017 Implant Cataract Softechd+17.75d - [id number] Start: 12-13-2017 Implant Cataract Softechd+16.25d - [id number] Start: 11-15-2017 Implant Cataract Softechd+17.75d - [id number] Start: 12-13-2017 [id number] Start: 03-17-2016 by Miscellaneous route 2 (two) times a day Accu Chek Ashley Plus. [id number] Start: 03-17-2016 by Other route t wice a day. [id number] Start: 03-17-2016 Goals Date Patient Goal Desired Activity /State Comment on above: Blood sugar levels o utside the normal range may be an indicator of diabetes. Clinical Notes 04-09-2021 to 07-01-2025 Telephone Encounter - John Esteban [facility] - 07/01/2025 4:43 PM EDTTelephone Encounter - John Esteban [facility] - 07/01/2025 4:43 PM EDTTelephone Encounter - [...] is taking all other medications as prescribed. [facility] will follow up to set up refill for 1 mg semaglutide in the coming weeks. Patient will be seen in office for follow up 07/25/25. Thanks! John [facility] 07-01-2025 Miscellaneous Notes Indira called in to [...] is taking all other medications as prescribed. [facility] will follow up to set up refill for 1 mg semaglutide in the coming weeks. Patient will be seen in office for follow up 07/25/25. Thanks! John documented in this encounter [facility] 06-27-2025 Telephone encounter Note KEITH 07/25/24, 07/25/25, Labs 07/19/24. Rx pended. [facility] 06-27-2025 Miscellaneous Notes KEITH 07/25/24, NOV 07/25/25, Labs 07/19/24. Rx pended. documented in this encounter [facility] 06-24-2025 Telephone encounter Note Spoke with patient [...] or concerns in the interim. Thanks! John [facility] 06-24-2025 Miscellaneous Notes Spoke with patient upon [...] interim. Thanks! John documented in this encounter [facility] 05-16-2025 Radiology Diagnostic study note [facility] Imaging Services [address] [place] [id number] Chest PA and Lateral MR#: [id number] Acct: [id number] Name: INDIRA HATCH JUAN Rep #: [id number] : 1950 F 74 From: Jossy Ibanez MD PCP: Dr. Gallito Jacobson MD Status: RE G CLI Study:Chest PA and Lateral Date of Exam: 05/15/25 Exam# [id number] Ordering Dr: Gallito Jacobson MD PROCEDURE: CHEST [...] basilar atelectatic pulmonary changes, unchanged. Reading [facility] CC: Dr. 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 12-07-2024 Telephone encounter Note KEITH KV 07/26/24 NOV KV 07/25/25 Labs 07/19/24 Rx Pending [facility] 12-07-2024 Miscellaneous Notes KEITH KV 07/26/24 NOV KV 07/25/25 Labs 07/19/24 Rx Pending documented in this encounter [facility] 09-19-2024 Telephone encounter Note KEITH 07/22, labs 07/22. Rx pended. [facility] 09-19-2024 Miscellaneous Notes KEITH 07/22, labs 07/22. Rx pended. documented in this encounter [facility] 08-21-2024 Telephone encounter Note KEITH KV 07/26/24 NOV KV 07/25/25 Labs 07/19/24 Rx Pending [facility] 08-21-2024 Miscellaneous Notes KEITH KV 07/26/24 NOV KV 07/25/25 Labs 07/19/24 Rx Pending documented in this encounter [facility] 07-26-2024 History of Presen t illness Narrative [...] for: FERRITIN HIV: No results found for: [id number] EKG: See Report Echo: See Report EF: No components found for: LVEF, LVEFMODE IMPRESSIONS: Diagnosis Plan 1. Primary hypertension ECG 12 lead - CLINIC PERFORMED 2. Type 2 diabetes mellitus with hyperosmolarity without coma, without long-term current use of insulin (CMS/HCC) ([facility]) 3. 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 4. Ischemic cardiomyopathy 5. NSTEMI (non-ST elevated myocardial infarction) ([facility]) Ischemic cardiomyopathy with reduced ejection fraction NYHA class III: Today, she is still doing well. She is still bowling, and she continues to work 4 days per week at [employer]. Her current medications include carvedilol 12.5 mg [...] Stubbs MD, PhD Advanced Heart Failure Cardiology [facility]. [facility] [place] 1:28 PM 07/26/24 documented in this encounter [facility] 07-26-2024 Note CARDIOLOGY HEART JORDAN LURE PROGRESS [...] Exam Constitutional: Gen (more content not included)... [facility] 07-24-2024 Telephone encounter Note Upcoming visit 07/26 OV 07/26/2023 BMP 07/19/2024 [facility] [employer] Work Phone: 07-24-2024 Miscellaneous Notes Upcoming visit 07/26 OV 07/26/2023 BMP 07/19/2024 documented in this encounter [facility] 07-11-2024 Telephone encounter Note Spoke with patient, [...] 1 year follow up 07/26/24. Thanks! John [facility] 07-11-2024 Miscellaneous Notes Spoke with patient, she [...] 07/26/24. Thanks! John documented in this encounter [facility] 04-05-2024 Telephone encounter Note KEITH 07/21, OCT 06, labs 08/21. Rx pended. [facility] 04-05-2024 Miscellaneous Notes KEITH 07/21, OCT 06, labs 08/21. Rx pended. documented in this encounter [facility] 01-08-2024 Note HNO ID: [id number] Author: SANTIAGO LEIVA APRN.[facility] Service: ? Author Type: Nurse Practitioner Type: [...] Patient agreeable to treatment plan. Santiago Leiva APRN.[facility] 10-18-2023 Telephone encounter Note Last office visit 07/26 with KV. Next visit scheduled 06/2024. Labs 08/03. [facility] 10-18-2023 Miscellaneous Notes Last office visit 07/26 with KV. Next visit scheduled 06/2024. Labs 08/03. documented in this encounter [facility] 09-23-2023 Telephone encounter Note Patient has been tolerating 0.5 mg per week Ozempic and will be continuing on this dose. She is not titrating any further up at this time. Updating rx to reflect current dose. Pended for your review. [facility] 09-23-2023 Miscellaneous Notes Patient has been tolerating 0.5 mg per week Ozempic and will be continuing on this dose. She is not titrating any further up at this time. Updating rx to reflect current dose. Pended for your review. documented in this encounter [facility] 07-26-2023 History of Presen t illness Narrative [...] for: FERRITIN HIV: No results found for: [id number] EKG: See Report Echo: See Report EF: No components found for: LVEF, LVEFMODE IMPRESSIONS: Diagnosis Plan 1. Primary hypertension 2. 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 3. NSTEMI (non-ST [...] Stubbs MD, PhD Advanced Heart Failure Cardiology [facility] [employer]. [facility] [place] 2:08 PM 07/26/23 documented in this encounter [facility] 07-26-2023 Instructions Johnathan Stubbs MD - 07/26/2023 1:45 PM EDT Indira, you look great today. You can stop the nitroglycerine Start losartan 25 mg per day. Get blood work in a week. Return in a year, earlier if need be. documented in this encounter [facility] 07-08-2023 Telephone encounter Note Labs/ov current. Spoke w/ pt- she noticed her NTG was - needs a refill. Not having any cp. Rx's pended for rf. [facility] 07-08-2023 Miscellaneous Notes Labs/ov current. Spoke w/ pt- she noticed her NTG was - needs a refill. Not having any cp. Rx's pended for rf. We scheduled pt's delivery for all of her medications but it looks like there are only 16 tabs left on her clopidogrel script. If appropriate, please send script to [facility] so we can get this delivered with all of her other medications. Pended script for review. Thank you! documented in this encounter [facility] 07-08-2023 Telephone encounter Note We scheduled pt's delivery for all of her medications but it looks like there are only 16 tabs left on her clopidogrel script. If appropriate, please send script to [facility] so we can get this delivered with all of her other medications. Pended script for review. Thank you! [facility] 04-08-2023 Telephone encounter Note Last KV ov 10/20, labs 07/20. Pt due for KV 6 mo f/u. SJ msg'd to schedule. Rx pended for rf. [facility] 04-08-2023 Miscellaneous Notes Last KV ov 10/20, labs 07/20. Pt due for KV 6 mo f/u. SJ msg'd to schedule. Rx pended for rf. documented in this encounter [facility] 01-07-2023 Telephone encounter Note Last OV 10/27/2022. Labs 07/09/2022. Follow up due in 9 months. Rx pended for refill. [facility] 01-07-2023 Miscellaneous Notes Last OV 10/27/2022. Labs 07/09/2022. Follow up due in 9 months. Rx pended for refill. documented in this encounter [facility] 07-09-2022 Miscellaneous Notes July 09, 2022 PID: [id number] Indira Hatch [address] [place] [address] Dear Ms. Hatch, We are pleased to [...] report will be kept on file at [facility] as part of your permanent medical record and are available for your continuing care. Thank you for allowing us to help in meeting your health care needs. Sincerely, Dr. Gavin Interpreting Radiologist [facility] (Normal over 40) documented in this encounter [facility] 07-09-2022 History of Presen t illness Narrative [...] 2022 7:59 AM documented in this encounter [facility] 04-29-2021 Note Attestation signed by Adriana Minor MD at 04/29/2021 3:24 PM I, Dr. Adriana Minor, saw and evaluated the patient on 04/29/2021. I personally obtained the obrien and critical portions of the history and physical exam. I reviewed the labs, imaging studies, and electronic medical record. I reviewed the SOCIAL WORK ASSISTANT's documentation, and discussed the patient with the SOCIAL WORK ASSISTANT. I agree with the SOCIAL WORK ASSISTANT's medical decision making and have edited the [...] Other hyperlipidemia ? 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 Procedures: Cath Summary Final report pending Verbal report - JESUS LCx HOSPITAL COURSE : Ms. Hatch is a 70-year-old female with a history of type 2 diabetes, hypertension, and hyperlipidemia who presented to [place] [facility] with a chief complaint of shortness [...] QUINONEZ, fatigue, and dizziness. She presented to [facility] today and underwent PCI LCx by Dr. Minor without complication. Final report pending. She feels well without CP, SOB, vision/speech changes. VSS. EKG with new T wave inversions V1, V2, V3, V6. Pl (more content not included)... [facility] 04-29-2021 [facility] Emily Lynn, SENIOR ELECTRICAL ESTIMATOR - PHARMACY MANAGER - 04/29/2021 Call your doctor with any medication questions or if you notice any side effects from your medications. If you are unable to fill your medications, please call your Health Sciences Manager immediately. The office number is located with [...] for 24 hours. GIVE PCI PACKET (FROM PROGRAM OR PROJECT ADMINISTRATOR) TO PATIENT Give Coronary Artery Discharge Booklet [...] Minor Discharge Attending: BONY Huber CNP, Dr. Minor [...] abuse Other hyperlipidemia 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 Procedures: Cath Summary Final report pending Verbal report - JESUS LCx HOSPITAL COURSE : Ms. Hatch is a 70-year-old female with a history of type 2 diabetes, hypertension, and hyperlipidemia who presented to [place] [facility] with a chief complaint of shortness [...] QUINONEZ, fatigue, and dizziness. She presented to [facility] today and underwent PCI LCx by Dr. [...] Stubbs if having to drive up from [place], so his appt in May was moved [...] Discharge Medications: Indira Hatch Home Medication Instructions MAE:[id number] Printed on:04/29/21 5907 Medication Information aspirin 81 MG EC tablet [...] Cardiac Rehab The Cardiac Rehabilitation Team at [facility] consists of highly skilled healthcare professionals, [...] regarding this valuable service please call # [phone] Orientation is available on all Wednesdays at 11:30 am location in the [address] BMI Classification: Obese (BMI 30.0-39.9) DIET: A lowfat, low cholesterol diet was discussed with the patient. Discharge to Home Condition at Discharge: good Follow up with cardiology Dr. Stubbs 05/08/21 at 10:45AM If any questions call [facility] office [phone] Total time spent for Discharge time greater than 60 minutes Associated attestation - Adriana Minor MD - 04/29/2021 3:24 PM EDT I, Dr. Adriana Minor, saw and evaluated the patient on 04/29/2021. I personally obtained the obrien and critical portions of the history and physical exam. I reviewed the labs, imaging studies, and electronic medical record. I reviewed the SOCIAL WORK ASSISTANT's documentation, and discussed the patient with the SOCIAL WORK ASSISTANT. I agree with the SOCIAL WORK ASSISTANT's medical decision making and have edited the [...] female history of diabetes, smoking admitted to [facility] with acute systolic heart failure andST [...] DISCHARGE MEDICATIONS: Indira Hatch Home Medication Instructions MAE:[id number] Printed on:04/09/21 1225 Medication Information aspirin 81 [...] Complexity: follow up within 7-14 calendar days (09476) [] Severe Complexity: follow up within 7 calendar days (23871) FOLLOW UP TESTING, PENDING RESULTS OR REFERRALS AT TRANSITIONAL CARE VISIT: [] Yes [] No PENDING STUDIES: No DISPOSITION: Home FACILITY/HOME CARE AGENCY NAME: Follow up with Johnathan Stubbs MD [address] [place] [address] On 04/15/2021 Time at 2:00 pm on [...] SIGNED: OZZIE CAMARGO MD 04/09/2021, 12:25 PM [facility] 04-09-2021 History of Presen t illness [...] in Acute Decompensation. ACC AHA Stage C [facility] FC IIIA. Etiology : Ischemic. PCI to LAD 04/08/21. Outpatient staged procedure in a couple weeks. Volume : euvolemic, not on diuretics GDMT : Coreg 12.5mg BID, Spironolactone 25mg qd, [id number] qd, entresto 24/26mg BID 2. CAD. Severe. Multivessel. LAD PCI 04/08/21. ASA 81mg qd, Ticagrelor 90mg BID, Crestor 40mg qd. BB as above. She will follow up with HF Clinic at [facility]. HF service will sign off, please call [...] diabetes, hypertension, and hyperlipidemia who presented to [place] [facility] with a chief complaint of shortness [...] Stubbs MD, PhD Advanced Heart Failure Cardiology [facility]. [facility] [place] 11:15 AM 04/09/21 INTERVENTIONAL CARDIOLOGY PROGRESS NOTE [...] from the original note were not included. [facility] Cardiothoracic Brief Note Name: Indira Hatch Date of : 1950 04/08/21; 10:[address] Babcock is reviewing the MRI and recent cath films - feels confident about grafting to the the LAD, OM1/2 seq, RCA - will discuss with Dr. Stubbs the results of the MRI EF 52% and 16% scar burden Brayden Young [facility] Please perfect serve me for any patient needs or call me directly at [phone] Images from the original note were not included. Hospitalist Progress Note 04/08/2021 10:01 AM [phone]: Please page me for patient care issues. [phone]: Please page IMS night Hospitalist for any issues. Subjective: Admit Date: 04/04/2021 PCP: No primary care provider on file. Room#: 130/V66062 Interval History: Patient seen and examined, I [...] for pci continue home Lantus insulin hold [facility], as patient going to be n.p.o. continue sliding scale insulin on Lovenox for deep vein thrombosis prophylaxis Labs ordered for AM Patient was informed about all work up and treatment plan Discussed with nursing staff Advance Directive: Full Code Discharge planning: OZZIE CAMARGO MD Division of Hospitalist Medicine Inpatient Medical Services PAGER: [phone] Heart Failure Progress Note SUBJECTIVE: Indira Juan [...] NSTEMI (non-ST elevated myocardial infarction) ([facility]) Active Problems: Diabetes mellitus (HCC) Resolved Problems: * No resolved hospital problems. * RECOMMENDATIONS: 1. HFrEF EF 35%. Ischemic. New Diagnosis. Not in Acute Decompensation. ACC AHA Stage C [facility] FC IIIA. Etiology : Ischemic. Cardiac MRI reviewed, joint discussion between CTS/Interventional/HF with patient for CABG vs PCI. Volume : euvolemic, not on diuretics GDMT : Coreg 12.5mg BID, Spironolactone 25mg qd, [id number] qd. Holding XUAN/ARB/ARNI for now until intervention [...] diabetes, hypertension, and hyperlipidemia who presented to [place] [facility] with a chief complaint of shortness [...] Stubbs MD, PhD Advanced Heart Failure Cardiology [facility]. [facility] [place] 1:18 PM 04/08/21 INTERVENTIONAL CARDIOLOGY PROGRESS NOTE Chart and interval events reviewed. Reason for Visit CAD follow up SUBJECTIVE: Indira Hatch states she physically feels well but [...] Unchanged Telemetry Reviewed: SR Echo: 04/04/[address] [facility] LVEF 15%, severe segmental systolic dysfunction, grade [...] IMPRESSIONS/RECOMMENDATIONS: 1. ACS/NSTEMI with multivessel CAD on [facility] with suspicion that [place] likely occurred 1-2 weeks prior to presentation - Stable. Denies CP or SOB. MULU score=5 (26% risk), KEYON svqji=459. Cardiac MRI as above (viability: Hyperenhancement of [...] in Acute Decompensation. ACC AHA Stage C [facility] FC IIIA. Etiology : Ischemic. Cardiac MRI today 04/07 to assess viability for PCI or CABG. Will tentatively make NPO tomorrow for possible PCI. Volume : euvolemic, not on diuretics GDMT : Coreg 12.5mg BID, Spironolactone 25mg qd, [id number] qd. Holding XUAN/ARB/ARNI for now until intervention [...] diabetes, hypertension, and hyperlipidemia who presented to [place] [facility] with a chief complaint of shortness [...] Stubbs MD, PhD Advanced Heart Failure Cardiology [facility]. Heart [facility] [place] 12:08 PM 04/07/21 Images from the original note were not included. Hospitalist Progress Note 04/07/2021 9:14 AM [phone]: Please page me for patient care issues. [phone]: Please page IMS night Hospitalist for any issues. Subjective: Admit Date: 04/04/2021 PCP: No primary care provider on file. Room#: 130/[id number] Interval History: Patient seen and examined, I [...] imaging today continue home Lantus insulin hold [facility], as patient going to be n.p.o. continue sliding scale insulin on Lovenox for deep vein thrombosis prophylaxis Labs ordered for AM Patient was informed about all work up and treatment plan Discussed with nursing staff Advance Directive: Full Code Discharge planning: OZZIE CAMARGO MD Division of Hospitalist Medicine Inpatient Medical Services PAGER: [phone] Images from the original note were not included. Hospitalist Progress Note 04/06/2021 11:48 AM Subjective: Admit Date: 04/04/2021 PCP: No primary care provider on file. Interval History: No overnight issues. No chest pain - no sob DIET CARDIAC; Date 04/06/21 0000 - 04/06/21 2359 Shift [id number] 24 Hour Total INTAKE P.O.(mL/kg/hr) 500(0.7) 500 [...] 04/04/2021 No results found for: PHART, PO2ART, IDS0HCX Recent Labs 04/04/212013 INR 1.1 Recent Labs [...] Code Discharge planning: TBD Johny Ruiz MD [facility] Hospitalist CARDIOLOGY PROGRESS NOTE Chart and interval [...] NSTEMI (non-ST elevated myocardial infarction) ([facility]) Resolved Problems: * No resolved hospital problems. [...] diabetes, hypertension, and hyperlipidemia who presented to [place] [facility] with a chief complaint of [...] Johnathan Stubbs MD, PhD Advanced Heart Failure Health Sciences Manager [facility] 10:55 AM 04/06/21 Nutrition rescreen completed. Chart reviewed. Patient to be monitored and followed by the diet air quality technician. Dietitian available upon request. Images from the original note were not included. CCU TRANSFER CHECKLIST Transfer Med Reconciliation (resume home meds if able, convert to PO if able) Complete Antibiotics (name, indication, duration, convert to PO if able) None Steroid (indication, duration, convert to PO if able) None Anticipated [place] Medications (CCU initiated) or Dose Changes and [...] within 24 hours of CCU transfer, page button inspector CCU recording studio internship for clarifications. [facility] CCU PROGRESS NOTE Patient Name: Indira Hatch : 1950 Reason for Admission: NSTEMI History of Present Illness: Indira Hatch is a 70 y.o. female with PMH ovarian cancer, DM2, OA; and a surgical history of ARELY, appendectomy, multiple hernia repairs, and back surgeries that was admitted to [facility] on 04/04/2021 for NSTEMI. Patient originally presented to [facility] with sudden onset dyspnea while bowling 04/03. Patient had initial lactic acidosis (5.3). EKG showed Q waves and J-point elevation in V2-V4 and ST depressions in the inferior leads. Echo showed regional wall motion abnormality in apex and lateral fu, EF 15%. Patient taken to cath 04/04 with evidence of severe LAD disease, and multi-vessel disease. Transferred to [facility] for CABG consideration. Patient seen this morning. [...] file Gets together: Not on file Attends yazidi service: Not on file Active member of [...] Date 04/05/21 0000 - 04/05/21 2359 Shift [id number] 9195-5002 8875-7200 24 Hour Total INTAKE I.V.(mL/kg) 82(0.9) 82(0.9) [...] ABGs: No results found for: PHART, PO2ART, QRU3VKR INR: Recent Labs 04/04/212013 INR 1.1 TSH: [...] 50-60% LCX, 40-50% RCA - Transferred to [facility] for CABG evaluation. - CTS is consulted, appreciate recommendations - MULU score 5: 26% risk at 14 days of all-cause mortality, new or recurrent AZ, or severe recurrent ischemia requiring urgent revascularization - KEYON score 166: 30% probability of from admission to 6 months - initial troponin: 0.459 --> 2.69 --> 6.210 --> 3.04 --> 2.520 - initial EKG: Q waves and J-point elevation in V2-V4 and ST depressions in the inferior leads - Received Brilinta at [place] per patient - start heparin gtt, beta laurel Coreg 6.25 BID (home med), high intensity statin - atorvastatin 80, ASA 81 - Currently chest pain free - check lipid panel and hemoglobin A1c - D/C'd troponin, CK, CK-MB trend - daily CBC, BMP, Mg, P; replace electrolytes as necessary - obtain formal TTE - daily EKG - diet: Cardiac - suspicion that AZ occurred 1-2 weeks prior to presentation - Cardiac MRI to evaluate akinetic anterior wall - Patient stable for transfer to telemetry HFrEF/ischemic cardiomyopathy (LVEF 15%) -New onset, likely due to NSTEMI, ischemic cardiomyopathy -Appears euvolemic at present, received 40 mg IV Lasix x 2 at [place] -Continue Coreg 6.25 mg BID -Diuresis PRN -I/O's, daily weights -GDMT after intervention decision Left basilar atelectasis/infiltrate -CTA obtained at [place] showed pulmonary edema versus atypical pneumonia, pulmonary [...] Obesity (BMI >30) - Disposition: Transfer to [facility] / Telemetry. I, Dr. Johnathan Stubbs, saw and evaluated the patient on 04/05/21. I personally obtained the obrien and critical portions of the history and physical exam. I reviewed the labs, imaging studies, and electronic medical record. I reviewed the Plant Chief's documentation, and discussed the patient with the Plant Chief. I agree with the Plant Chief's medical decision making and have edited the note to reflect my clinical findings and my assessment and plan. In summary, Ms. Hatch is a 70-year-old female with a history of type 2 diabetes, hypertension, and hyperlipidemia who presented to [place] [facility] with a chief complaint of [...] Stubbs MD, PhD Advanced Heart Failure Cardiology [facility] jobandtalent [facility]. Heart and Vascular [place] 11:55 AM 04/05/21 documented in this encounter [facility] Work Phone: Evaluation note Diagnosis NSTEMI (non-ST elevated myocardial infarction) ([facility])- Primary Acute myocardial infarction, subendocardial infarction, episode of care unspecified Post PTCA Postsurgical percutaneous transluminal coronary angioplasty status Diabetes mellitus ([facility]) Type II or unspecified type diabetes mellitus without mention of complication, not stated as uncontrolled Ischemic cardiomyopathy Other specified forms of chronic ischemic heart disease Acute systolic (congestive) heart failure ([facility]) Tobacco abuse Tobacco use disorder Other hyperlipidemia documented in this encounter [facility] Work Phone: Evaluation note* Diagnosis 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- Primary documented in this encounter [facility] Work Phone: Evaluation note* Diagnosis Onset Date Resolution Status Adrenal adenoma acute Atherosclerotic heart diseas e of duckwater coronary artery without angina pectoris acute CHF (congestive heart failure) acute Diabetes acute History of back surgery acut e History of cataract surgery acute History of heart artery stent acute History of respiratory failure acute History of total hysterectomy acute History of umbilical hernia repair acute Ulcer of abdomen wall acute [facility] Work Phone: Evaluation note* Diagnosis Onset Date Resolution Status Adrenal adenoma acute Atherosclerotic heart diseas e of duckwater coronary artery without angina pectoris acute CHF (congestive heart failure) acute Diabetes acute History of back surgery acut e History of cataract surgery acute History of heart artery stent acute History of respiratory failure acute History of total hysterectomy acute History of umbilical hernia repair acute Ulcer of abdomen wall acute Adrenal adenoma acute Atherosclerotic heart diseas e of duckwater coronary artery without angina pectoris acute CHF (congestive heart failure) acute Diabetes acute History of back surgery acut e History of cataract surgery acute History of heart artery stent acute History of respiratory failure acute History of total hysterectomy acute History of umbilical hernia repair acute Ulcer of abdomen wall acute [facility] Work Phone: evaluation note* Diagnosis Chronic systolic congestive heart failure (CMS/HCC) (HCC) [facility] Diagnosis 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 [facility]* Diagnosis Primary hypertension- Primary Unspecified essential hypertension 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 NSTEMI (non-ST elevated myocardial infarction) (CMS/HCC) (HCC) Acute myocardial infarction, subendocardial infarction, episode of care unspecified Ischemic cardiomyopathy Other specified forms of chronic ischemic heart disease [facility]* Diagnosis 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 [facility] noteNo assessment information availableWThe [facility] System Work Phone: evaluation note* Diagnosis 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 [facility]* Diagnosis Primary hypertension Unspecified essential hypertension Type 2 diabetes mellitus with hyperosmolarity without coma, without long-term current use of insulin (CMS/HCC) (HCC) 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 Ischemic cardiomyopathy Other specified forms of chronic ischemic heart disease NSTEMI (non-ST elevated myocardial infarction) (HCC) Acute myocardial infarction, subendocardial infarction, episode of care unspecified [facility]* Diagnosis Chronic systolic congestive heart failure (HCC) documented [facility]* Diagnosis Type 2 diabetes mellitus with hyperosmolarity without coma, without long-term current use of insulin (CMS/HCC) (HCC) [facility] Diagnosis 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 documented [facility]* Diagnosis 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- Primary 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 documented [facility]* Diagnosis 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 [facility]* Diagnosis 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 [facility] Chronic systolic congestive heart failure (HCC) documented in this encounter [facility] Discharge instructions* Instructions* Cherie Hillman APRN - PHARMACY MANAGER - 04/09/2021 Images from the original note were not included. Call your doctor with any medication questions or if you notice any side effects from your medications. If you are unable to fill your medications, please call your Health Sciences Manager immediately. The office number is located with [...] for 24 hours. GIVE PCI PACKET (FROM PROGRAM OR PROJECT ADMINISTRATOR) TO PATIENT Give Coronary Artery Discharge Booklet [...] Cardiac Rehab The Cardiac Rehabilitation Team at [facility] consists of highly skilled healthcare professionals, [...] regarding this valuable service please call # [phone] Orientation is available on all Wednesdays at 11:30 am location in the [address] Heart Failure Program Clinic or [phone] YOUR APPOINTMENT IS SCHEDULED FOR: 04/15/2021 2:00 [...] failure and have been referred to the [facility] HeartFailure Program for your heart failure care. [...] such as Nu Salt, Salt Sense, or Vinson's Salt Substitutes as these may be dangerous [...] your healthcare providers. Some medications, supplements, or cqqk-fro-aotrwza medications can be dangerous when mixed. Talk toa healthcare provider or pharmacist if you are taking more than one. This includes gctt-cqp-qucnvxeyebrjpoebh and herb or dietary supplements. Plan ahead [...] Team If Any of the Following Occurs [facility] Heart Failure Program Clinic or [phone] Fatigue, weakness, sleepiness Shortness of breath: with [...] have an emergency, CALL 911 . The [facility], Heart Failure Program is located at [address] [place] [address], [facility] [address] [place] [address]. Please use the [address] [place] [address] flat surface parking lot and enter off of [facility]. Last Reviewed: Cherie Hillman Updated: 12/23/2018 documented in this [facility] Work Phone: Hospital Discharge instructions Additional Instructions [...] to see you back in our emergency department.[facility] Work Phone: Reason for referral (narrative)No reason for referral information availableWThe [facility] Work Phone: Assessments Diagnosis Type 2 diabetes [...] Care Instructions Your Care Instructions Pterygium (say kar-SKG-ehv-um) and pinguecula (say fjsa-JCMN-ylw-janice) are similar eye problems.They are both a [...] redness and irritation. You also may use fwcl-nrj-jphjgmw drops (artificial tears) to keep your eyes [...] you are outdoors during the day. Use keht-cyk-rdjiznk artificial tears if your eyes feel dry. [...] Log into your personal health record on [email or web address] and enter L928 in the Education box to learn more about Pterygium and Pinguecula: Care Instructions. Current as of: April 20, 2016 Content Version: 11.2 [id number] [employer]. Care instructions adapted under license by your healthcare professional. If you have questions about a medical condition or this instruction, always ask your healthcare professional. [employer] disclaims any warranty or liability for your [...] for older adults, group exercise that teaches Yonathna Chi forms that reduce fall risk (weightshifting, [...] vision, and medications. Classes are offered at [facility]. To find out specifics about a class, please call [phone]. Yonathan chi: Moving for Better Balance involves low impact exercise. The 12-week class is offered for three hours per week and is led by a trained graphic arts instructor. It is intended for people aged [...] additional resources about fall prevention please contact: [facility] Violence and Injury Prevention Program at [phone] or [email or web address] in this encounter Summary Purpose Family History No Family History Records Found Relationship Condition Age at Onset Recorded Date/T janette mother Arthritis Unknown Malignant neoplasm Unknown Osteoporosis Unknown brother Diabetes mellitus Unknown Advance Directives No Advanced Directives Records FoundDocuments on File Type Date Recorded Patient Sizing Machine And Drier Operator Expl anation ACP-Advance Directive 04/05/2021 12:00 AM [...] Yes June 10, 2021 9:01am Power of Veneer Sample Maker No June 10 9:01am Advance Directive Response Recorded Date/ Time Living Will Yes June 10, 2021 8:01am Power of Veneer Sample Maker No June 10 8:01am Advance Directive Response Recorded Date/ Time Living Will Yes November 02 7:43pm Power of Veneer Sample Maker No November 02, 2022 7:43pm Reason for Referral Status Reason Specialty Diagnoses / Procedures Referred By Contact Referred To Contact [facility] Required Cardiac Rehabilitation Diagnoses Post PTCA NSTEMI (non-ST elevated myocardial infarction) (HCC) Bibiana Graham, SENIOR ELECTRICAL ESTIMATOR - PHARMACY MANAGER [address] [facility] [address] [place] [address] [facility] [address] [place] [address] Scheduling Instructions [facility] [address] [facility] [address] [place] [address] Status Reason Specialty Diagnoses / Procedures Referred By Contact Referred To Contact Open Specialty Services Required Cardiac Rehabilitation Diagnoses 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 Emily Greenwood, SENIOR ELECTRICAL ESTIMATOR - PHARMACY MANAGER [address] [place] [address] [facility] [address] [place] [address] Specialty Diagnoses / Procedures Referred By Contac t Referred To Contact Cardiology Diagnoses 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 Procedures Transthoracic echocardiogram (TTE) complete with contrast, bubble, strain, and 3D PRN MN ECHO TTHRC R-T 2D W/WOM-MODE COMPL SPEC&COLR D MN TTE W OR WO FOL WCON,DOPPLER Enoc, Johnathan Cervantes MD [address] [place] [address] Referral ID Status Reason Start Date Expiration Date V isits Requested Visits Authorized [id number] Closed Perform Procedure 09/21/2022 03/20/2023 1 1 Chief Complaint and Reason for Visit Chief Complaint wound Reason for Visit Adrenal adenoma 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 CHF (congestive heart failure) Diabetes History of back surgery History of cataract surgery History of heart artery stent History of respiratory failure History of total hysterectomy History of umbilical hernia repair Ulcer of abdomen wall Chief Complaint wound wound Reason for Visit Adrenal adenoma 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 CHF (congestive heart failure) Diabetes History of back surgery History of cataract surgery History of heart artery stent History of respiratory failure History of total hysterectomy History of umbilical hernia repair Ulcer of abdomen wall Adrenal adenoma 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 CHF (congestive heart failure) Diabetes History of back surgery History of cataract surgery History of heart artery stent History of respiratory failure History of total hysterectomy History of umbilical hernia repair Ulcer of abdomen wall Chief Complaint wound wound fall Reason for Visit Adrenal adenoma 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 CHF (congestive heart failure) Diabetes History of back surgery History of cataract surgery History of heart artery stent History of respiratory failure History of total hysterectomy History of umbilical hernia repair Ulcer of abdomen wall Adrenal adenoma 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 CHF (congestive [...] Indira Hatch Admit Date: [id number] MR #: [id number] : 1950 The H&P has been reviewed [...] PHACOEMULSIFICATION CATARACT INTRAOCULAR LENS CLEAR CORNEA; Surgeon: eMjia Ku MD; Location: [facility] Main OR; Service: Ophthalmology CHEMOTHERAPY 2003 ovarean [...] Indira Hatch Admit Date: [id number] MR #: [id number] : 1950 The H&P has been reviewed [...] Disp: 100 strip, Rfl: 1 blood-glucose meter [facility], Accucheck/ E11.9, Disp: 1 each, Rfl: 0 [...] Hobbs RN - 12/07/2017 10:09 AM Alexandra Cudara RN - 11/09/2017 10:16 AM EST Nursing Notes (unrecognized section and content) Our goal here at [facility] is to make your time [...] following medications prior to your surgery: ? [facility] will call you the day [...] which [facility] ? No [...] off at the front entrance while your audio video mechanic marshall the car. ? Please bring a photo ID and insurance information with you. ? If staying overnight at the hospital, please bring any personal items you will require and any assistive devices such as C-PAP, hearing aids, etc. Please feel free to call Pre-Admission Testing with any questions you may have Wednesday 8 am - 3:30 pm at [phone]. in this encounter Our goal here at [facility] is to make your time [...] following medications prior to your surgery: ? [facility] will call you the day [...] which case you go directly to the [facility] located on the 4th Floor). ? [...] off at the front entrance while your audio video mechanic marshall the car. ? Please bring a photo ID and insurance information with you. ? If staying overnight at the hospital, please bring any personal items you will require and any assistive devices such as C-PAP, hearing aids, etc. Please feel free to call Pre-Admission Testing with any questions you may have Wednesday 8 am - 3:30 pm at [phone]. in this encounter Brief Op Note - Mejia Ku MD - 12/13/2017 8:18 AM ESTOp Note - Mejia Ku MD - 11/15/2017 12:46 PM ESTBrief Op Note - Mejia Ku MD - 11/15/2017 12:12 PM EST Miscellaneous Notes (unrecog nized section and content) Brief Post Operative Note Patient Name: Indira Hatch : 1950 (67 y.o.) Date of Service: 12/13/2017 CSN: [id number] Procedure(s): LEFT EYE PHACOEMULSIFICATION CATARACT INTRAOCULAR LENS CLEAR CORNEA Pre-Operative Diagnoses: * H25.812 Post-Operative Diagnoses: * Combined forms of age-related cataract of left eye [H25.812] Surgeon(s) and Role: * Mejia Ku MD - Primary Anesthesiologist: Peggy Roth DO CASHIER HOST/HOSTESS: Art Mcdaniel CRNA Test Desk Supervisor: Sherly Weller RN Scrub Person: Amy Glasgow RN: Mirtha Monique RN Brief Post Operative Note Date of Service: 12/13/2017 Clinician: Mejia Ku MD OR Staff: Test Desk Supervisor: Sherly Weller RN Scrub Person: Amy Glasgow RN: Mirtha Monique RN Anesthesia Staff: Anesthesiologist: Peggy Roth DO CASHIER HOST/HOSTESS: Art Mcdaniel CRNA Surgeon(s):Surgeon(s) and Role: * Mejia Ku MD - Primary Pre-Operative Diagnoses: Cataract left eye Post-Operative Diagnoses: Cataract left eye Procedure(s) performed: PEM with PC IOL left eye Dressings: Eye patch and shield Estimated Blood Loss: none Type of Anesthesia used: MAC Intra and Immediate Post-op Complications: none Mejia Ku MD 12/13/2017 8:18 AM CSN: [id number] this encounter INDIRA HATCH [facility] [id number] 1950 DATE 11/15/2017 OPERATIVE REPORT SURGEON MEJIA [...] good condition. MD Jignesh CAMARILLO 11/15/2017 12:19 [id number] T 11/15/2017 13:20 DRS/MODL Brief Post Operative Note Patient Name: Indira Hatch : 1950 (66 y.o.) Date of Service: 11/15/2017 CSN: [id number] Procedure(s): RIGHT EYE PHACOEMULSIFICATION CATARACT INTRAOCULAR LENS CLEAR CORNEA Pre-Operative Diagnoses: * H25.811 Post-Operative Diagnoses: * Combined forms of age-related cataract of right eye [H25.811] Surgeon(s) and Role: * Mejia Ku MD - Primary Anesthesiologist: Amina Shields MD Scrub Person: Cami Yung RN Test Desk Supervisor Orientee: Sherly Weller RN Test Desk Supervisor Preceptor: Victoria Moss RN Brief Post Operative Note Date of Service: 11/15/2017 Clinician: Mejia Ku MD OR Staff: Scrub Person: Cami Yung RN Test Desk Supervisor Orientee: Sherly Weller RN Test Desk Supervisor Preceptor: Victoria Moss RN Anesthesia Staff: Anesthesiologist: [...] Mejia Ku MD 11/15/2017 12:12 PM CSN: [id number] this encounter INFORMATION SOURCE (unrecogn ized section and content) DATE CREATED AUTHOR 05/24/2018 [facility] DATE CREATED AUTHOR AUTHOR'S ORGANIZ ATION 05/24/2018 [facility] DATE CREATED AUTHOR AUTHOR'S ORGANIZ ATION 06/10/2018 [facility] DATE CREATED AUTHOR AUTHOR'S ORGANIZ ATION 06/13/2018 [facility] ostal DATE CREATED AUTHOR AUTHOR'S ORGANIZ ATION 05/02/2021 [facility] DATE CREATED AUTHOR AUTHOR'S ORGANIZ ATION 07/21/2024 [facility] DATE CREATED AUTHOR AUTHOR'S ORGANIZ ATION 06/29/2025 [facility] DATE CREATED AUTHOR AUTHOR'S ORGANIZ ATION 07/02/2025 [facility] Ordered Prescriptions (unrec ognized section and [...] or prosecute any alcohol or drug abuse patient.[facility] SystemIn the event this information is protected by the Federal Confidentiality of Alcohol and Drug Abuse Patient Records regulations: The Federal rules restrict any use of the information to criminally investigate or prosecute any alcohol or drug abuse patient.[facility] Teams (unrecognized sec tion and content) House Manager Relationship Specialty Start Date End Date Cherie Deluca [address] [place] [address] PCP - General Family Practice 09/07/18 House Manager Relationship Specialty Start Date End Date Cherie Deluca [address] [place] [address] PCP - General Family Practice 09/07/18 House Manager Relationship Specialty Start Date End Date Cherie Deluca [address] [place] [address] PCP - General 04/09/21 House Manager Relationship Specialty Start Date End Date Cherie Deluca [address] [place] [address] PCP - General 04/09/21 House Manager Relationship Specialty Start Date End Date Cherie Deluca [address] [place] [address] PCP - General 04/09/21 House Manager Relationship Specialty Start Date End Date Cherie Deluca [address] [place] [address] PCP - General 04/09/21 House Manager Relationship Specialty Start Date End Date Cherie Deluca [address] [place] [address] PCP - General 04/09/21 Team Status: Active [...] Deluca MD Primary Care Provider Active Dr. Yonis Schaffer DPM Attending Provider, Referring Provider Active House Manager Relationship Specialty Start Date End Date Cherie Deluca [address] [place] [address] PCP - General 04/09/21 House Manager Relationship Specialty Start Date End Date Cherie Deluca [address] [place] [address] PCP - General 04/09/21 House Manager Relationship Specialty Start Date End Date Cherie Deluca [address] [place] [address] PCP - General 04/09/21 House Manager Relationship Specialty Start Date End Date Cherie Deluca [address] [place] [address] PCP - General 04/09/21 House Manager Relationship Specialty Start Date End Date Cherie Deluca [address] [place] [address] PCP - General 04/09/21 House Manager Relationship Specialty Start Date End Date Cherie Deluca [address] [place] [address] PCP - General 04/09/21 House Manager Relationship Specialty Start Date End Date Cherie Deluca [address] [facility] [address] [place] [phone] PCP - General 04/09/21 House Manager Relationship Specialty Start Date End Date Cherie Deluca [address] [facility] [address] [place] [phone] PCP - General 04/09/21 Team Status: Active [...] May 15, 2025 End: May 15, 2025 House Manager Relationship Specialty Start Date End Date Cherie Deluca [address] [facility] [address] [place] [phone] PCP - General 04/09/21 Goals (unrecognized section [...] BE BASED ON THE PRIMARY CLINICAL RECORDS. [facility]. provides no warranty or guarantee of the accuracy or completeness of information in this document.
--- NOTE | 2025-07-04 07:23 | BD_ITS ---
PROCEDURE: DEXA BONE DENSITY STUDY 07/04/2025 REASON FOR EXAM: F, age 74 y/o . Postmenopausal. TECHNIQUE: DEXA BONE DENSITY STUDY COMPARISON: None FINDINGS: BMD and T-SCORES Left femoral neck: 0.966 g/cm2, T-score 1.1 Femoral neck comparison data not recommended for monitoring change. Left total hip: 1.140 g/cm2, T-score 1.6 Right femoral neck: 0.957 g/cm2, T-score 1.0 Femoral neck comparison data not recommended for monitoring change. Right total hip: 1.101 g/cm2, T-score 1.3 Left 1/3 radius: 0.579 g/cm2, T-score 0.0 The World Health Organization has defined the following categories based on bone density: Normal bone density: T-score equal to or greater than -1.0 Osteopenia: T-score between -1.0 and -2.5 Osteoporosis: T-score equal to or less than -2.5 The patient does meet the pharmacological treatment recommendations for prevention of osteoporosis. BD/Dexa Bone Density Study IMPRESSION: NORMAL T-SCORES. Recommend follow-up as clinically warranted. Reading Location: [place]
--- NOTE | 2025-07-04 07:23 | BD_ITS ---
PROCEDURE: DEXA BONE DENSITY STUDY 07/04/2025 REASON FOR EXAM: F, age 74 y/o . Postmenopausal. TECHNIQUE: DEXA BONE DENSITY STUDY COMPARISON: None FINDINGS: BMD and T-SCORES Left femoral neck: 0.966 g/cm2, T-score 1.1 Femoral neck comparison data not recommended for monitoring change. Left total hip: 1.140 g/cm2, T-score 1.6 Right femoral neck: 0.957 g/cm2, T-score 1.0 Femoral neck comparison data not recommended for monitoring change. Right total hip: 1.101 g/cm2, T-score 1.3 Left 1/3 radius: 0.579 g/cm2, T-score 0.0 The World Health Organization has defined the following categories based on bone density: Normal bone density: T-score equal to or greater than -1.0 Osteopenia: T-score between -1.0 and -2.5 Osteoporosis: T-score equal to or less than -2.5 The patient does meet the pharmacological treatment recommendations for prevention of osteoporosis. BD/Dexa Bone Density Study IMPRESSION: NORMAL T-SCORES. Recommend follow-up as clinically warranted. Reading Location: [place]
== END | disposition home or self-care (01) ==
LOC: OPBD 07:16
PROVIDERS: PCP Family Medicine; Referring Provider Family Medicine; Visit Provider Family Medicine
DX: Z78.0 Asymptomatic menopausal state (principal)
CPT/HCPCS: 77080

== ENCOUNTER → 2025-11-14 | Outpatient (CLI) | payer MEDICARE, SELFPAY ==
[2025-11-14 12:22] LABS: Hematocrit 38.4 % (37-47); Hemoglobin 12.3 g/dL (12.0-15.0); Immature Granulocytes Count 0.020 X10^3/uL (0.0-0.0); Mean Corp Hgb Conc 32.0 g/dL (32-36); Mean Corpuscular Volume 88.9 fL (81-99); Mean Platelet Vol. 12.5 fl (6.2-12.0); NRBC Flagged by Analyzer 0 % (0-5); Platelet Count 193 K/mm3 (150-450); RBC Distribution Width CV 14.0 % (11.6-14.6); RBC Distribution Width SD 45.5 fl (35.1-43.9); Red Blood Count 4.32 M/mm3 (4.2-5.4); White Blood Count 6.5 K/mm3 (4.4-11.0)
[2025-11-14 12:53] LABS: Creatinine, Urine (random) 55.40 mg/dL (28.00-217.00); Microalbumin,Random Urine < 12.0 mg/L (<20 mg/L)
[2025-11-14 13:12] LABS: AST(SGOT) 15 U/L (<=31); Alanine Aminotransfer ALT/SGPT 9 U/L (<=34); Albumin, Serum 4.0 g/dL (3.4-4.8); Alkaline Phosphatase 41 U/L (35-104); Anion Gap 10 (5-15); BUN 16 mg/dL (4-19); BUN/Creat Ratio 21.8 RATIO (10-20); Calcium,Total 10.3 mg/dL (7.6-11.0); Carbon Dioxide 26.4 mmol/L (21.0-32.0); Chloride 103 mmol/L (98-108); Cholesterol 132 mg/dL (<=200); Globulin 2.9 g/dL (2.2-4.2); Glucose 123 mg/dL (70-99); Low Density Lipoprotein Calc. 75 mg/dL; Magnesium 2.0 mg/dL (1.5-2.2); Potassium 4.6 mmol/L (3.3-5.1); Triglycerides 90 mg/dL; Very Low Density Lipoprotein 18 mg/dL (5-40); Vitamin D,25 Hydroxy 33.3 ng/mL (30-100); cholesterol:hdl ratio screen 3.31
== END | disposition home or self-care (01) ==
LOC: MFPLAB 10:08
PROVIDERS: PCP Family Medicine; Visit Provider Family Medicine
DX: E11.59 Type 2 diabetes mellitus with other circulatory complications (principal); E55.9 Vitamin D deficiency, unspecified
CPT/HCPCS: 36415; 80053; 80061; 82043; 82306; 82570; 83036; 83735; 85025